=== PATIENT | female | born 1955 | race Caucasian/White ===

== ENCOUNTER → 2019-12-26 11:40 | Outpatient (BNVA) | payer MEDICARE, SELFPAY | PROVIDERS: PCP Physician Assistant; Visit Provider Surgery | DX: Z09 Encounter for follow-up examination after completed treatment for conditions other than malignant neoplasm (principal); Z87.19 Personal history of other diseases of the digestive system | CPT/HCPCS: 99212 ==

== ENCOUNTER → 2020-01-22 11:16 | Outpatient (BNV) | payer MEDICARE, OTHER, SELFPAY | PROVIDERS: PCP Physician Assistant; Visit Provider Internal Medicine | DX: C50.919 Malignant neoplasm of unspecified site of unspecified female breast (principal) | CPT/HCPCS: 99212; 99213; 99214; G2211 ==

== ENCOUNTER → 2020-01-23 09:17 | Outpatient (BNVA) | payer MEDICARE, SELFPAY | PROVIDERS: PCP Physician Assistant; Referring Provider Physician Assistant; Visit Provider Surgery | DX: C50.919 Malignant neoplasm of unspecified site of unspecified female breast (principal); K62.3 Rectal prolapse; Z90.49 Acquired absence of other specified parts of digestive tract; Z98.890 Other specified postprocedural states | CPT/HCPCS: 99212 ==

== ENCOUNTER 2020-02-20 15:05 | Emergency (ER) | payer MEDICARE, SELFPAY ==
[2020-02-20 15:17] VITALS: BP 142/91; PULSE 84; RESP 18; TEMP 36.3; O2SAT 98; BMI 27.3
--- NOTE | 2020-02-20 16:48 | PC.NURSE ---
ambulatory with pts baseline gait pattern, hob elevated, bleeding controlled, awaiting exam by provider, a&ox3
--- NOTE | 2020-02-20 16:56 | CT_ITS ---
EXAMINATION: CT HEAD WITHOUT CONTRAST CLINICAL INFORMATION: Head trauma. Laceration above right eye. COMPARISON: CT brain 07/11/2019 TECHNIQUE: Contiguous axial imaging was performed from the skull base to vertex without intravenous administration of contrast. This CT examination was performed using dose optimization techniques as appropriate, variously including the following: *Automated exposure control *Adjustment of mA and/or kV according to patient size (this includes techniques or standardized protocols for targeted exams where dose is matched to indication/reason for exam; i.e. extremities or head) *Use of iterative reconstruction technique DLP: 644 mGy-cm FINDINGS: There is no evidence of acute intracranial hemorrhage or territorial infarction. No abnormal mass effect or midline shift is seen. Robles to white matter differentiation is well preserved. No extra-axial fluid collections are identified. The lateral ventricles are enlarged and so are the cortical sulci. The robles to white matter differentiation is maintained. The osseous structures and soft tissues are normal. The mastoid air cells and visualized portions of the paranasal sinuses are well aerated. There is debris seen in bilateral external auditory canal CT/CT head/brain wo con IMPRESSION: No acute intracranial process seen. Mild cerebral volume loss. No major change compared to previous study 07/11/2019
--- NOTE | 2020-02-20 17:14 | ED.FALL ---
HPI - Fall General Chief Complaint: Fall Stated Complaint: fall, head inj Time Seen by Provider: 02/20/20 16:51 Source: patient Mode of arrival: ambulatory History of Present Illness HPI Narrative: 64-year-old female with a past medical history of asthma, cerebral palsy, major depressive disorder, presenting to the ED complaining of laceration to right lateral eye s/p mechanical fall [employer]. Patient states she tripped and fell while walking in [facility], denies preceding symptoms including CP/lightheadedness/dizziness. Reports multiple falls due to her CP. Denies LOC or use of anticoagulation. Denies headache, vision changes, nausea/vomiting, CP/SOB, abdominal pain, numbness, weakness, injury to other area. Tetanus up-to-date Related Data Home Medications Medication Instructions Recorded Confirmed albuterol sulfate 2.5 mg INHALATION Q4H PRN 11/14/19 01/22/20 fluticasone 250 mcg-salmeterol 50 1 inh INHALATION BID 11/14/19 01/22/20 mcg/dose blistr powdr for inhalation fluticasone propionate 250 1 inh INHALATION BID 11/14/19 01/22/20 mcg/actuation blister powder for inhalation lisinopril 10 mg tablet 10 mg PO DAILY 11/14/19 01/22/20 montelukast 10 mg tablet 10 mg PO DAILY 11/14/19 01/22/20 paroxetine HCl 12.5 mg 12.5 mg PO DAILY 11/14/19 01/22/20 tablet,extended release 24 hr phenazopyridine 200 mg tablet 200 mg PO TID 11/14/19 01/22/20 Previous Rx's Medication Instructions Recorded Paxil CR 25 mg tablet,extended 50 mg PO DAILY #180 cap NS 12/18/19 release gabapentin 300 mg capsule 900 mg PO TID #270 cap 01/17/20 nitrofurantoin macrocrystal 100 mg 100 mg PO BID 7 Days #14 cap 01/23/20 capsule ibuprofen 800 mg tablet 800 mg PO TID 30 Days #90 tab 02/19/20 Allergies Allergy/AdvReac Type Severity Reaction Status Date / Time No Known Allergies Allergy Verified 01/23/20 09:38 [No Known Allergies*] Review of Systems Review of Systems: Constitutional: No Weight loss, No Fever, No Chills ENT/Mouth: No vision changes/blurry vision Cardiovascular: No Chest Pain, No SOB Respiratory: No Cough, No Sputum, No Wheezing Gastrointestinal: No Nausea, No Vomiting, No Diarrhea, No Constipation, No Abdominal pain Genitourinary: No Dysuria, No Urinary Frequency Musculoskeletal: No joint pain, No Myalgias, No Joint Swelling, no back pain, no neck pain Skin: + laceration, No rash Neuro: No Weakness, No Numbness, No Paresthesias, no headache Yes all other systems are reviewed and are negative FORMERLY [facility], [facility] Past Medical History Attestation statement: The following information was validated with the patient. Medical History (Updated 02/20/20 @ 17:20 by VIK Clemens) Asthma Cerebral palsy Invasive lobular carcinoma of breast in female MDD (major depressive disorder) Prolapse of intestine Surgical History History of open sigmoidectomy Family History Family History Father Family history unknown Mother Breast cancer Social History Social History Alcohol intake: former Smoking Status: Never smoker Smoked in Last 30 Days: No Advance Directives: No Advance Directives Information Provided: No Physical Exam Vital Signs: Vital Signs: Last Vital Signs Temp 97.3 F 02/20/20 15:17 Pulse 84 02/20/20 15:17 Resp 18 02/20/20 15:17 BP 142/91 H 02/20/20 15:17 Pulse Ox 98 02/20/20 15:17 Body Mass Index 27.3 Const: General: cooperative, healthy appearing, comfortable and no acute distress Orientation/consciousness: patient oriented x3 Limitations: no limitations HENMT: Other: + 3 cm irregular laceration noted lateral to right eye Head: Yes No palpable skull fracture present Ears: hearing grossly normal bilaterally General nose exam: Normal external nose present Face and sinus: Yes normal facial exam Throat: Yes posterior oropharynx normal Eyes: General: appearance normal, both eyes and all related structures Pupils: Equal, round and reactive pupils present EOM: EOMs intact bilaterally Neck: Other: No midline cervical spinous tenderness Neck: Yes normal visual inspection and Yes no meningeal signs Resp: Effort & Inspection: normal respiratory effort Cardio: Rate: regular rate GI: Inspection: Yes normal to inspection Palpation (GI): Soft to palpation, nontender, no guarding and not rigid Back/Spine/Pelvis: Other: No midline thoracic/lumbar spinous tenderness Skin: Rashes: no rashes Neuro: General: patient oriented x3, tone normal, moves all extremities, no meningeal signs, no focal motor deficits and CN's II-XI intact bilaterally Cranial nerves: Yes Equal, round and reactive pupils present Cognition (Neuro): normal cognition Gait exam (Neuro): Normal gait present Motor exam (neuro): 5/5 motor strength present throughout and Pronator motor function not present Extrem: General: Yes normal to inspection Course Course Course Narrative: Wound repaired with 4 sutures in the ED -1800--ED care transferred to VIK Kincaid pending head CT Procedures Laceration Laceration 1: Site: face Side (If applicable): right Size (cm): 3 Description: irregular Depth: simple, single layer Local Anesthetic: lidocaine 1% Amount of anesthesia used (mL): 2.5 Pre-repair: irrigated extensively Skin layer closed with: nylon Size (cm): 6-0 Number of sutures: 4 Technique: simple, interrupted MDM - Fall MDM Narrative Medical decision making narrative: On exam VSS, NAD, laceration noted to lateral of right eye. No midline spinous tenderness throughout. No focal neuro deficits Plan: Head CT, suture laceration Discharge Plan Discharge Clinical Impression: Laceration, Fall Patient Disposition: Home, Self-Care Instructions: Laceration (ED) Additional Instructions: YOUR WOUND WAS REPAIRED TODAY IN THE EMERGENCY DEPARTMENT, AVOID GETTING WET FOR THE NEXT 24 HOURS, AFTER THAT YOU MAY GET WET BUT ONLY PAT DRY YOU NEED TO RETURN TO THE EMERGENCY DEPARTMENT OR IN URGENT CARE IN 5 DAYS TO HAVE THE STITCHES TAKEN OUT APPLY BACITRACIN OR NEOSPORIN AT HOME IF AREA BEGINS TO LOOK INFECTED, IS RED, THERE IS DRAINAGE, OR YOU HAVE FEVER RETURN TO THE EMERGENCY DEPARTMENT Prescriptions: No Action paroxetine HCl [Paxil CR] 25 mg tablet extended release 24 hr 50 mg PO DAILY Qty: 180 RF: 2 gabapentin 300 mg capsule 900 mg PO TID Qty: 270 RF: 3 nitrofurantoin macrocrystal 100 mg capsule 100 mg PO BID 7 Days Qty: 14 RF: 0 ibuprofen 800 mg tablet 800 mg PO TID 30 Days Qty: 90 RF: 3 montelukast 10 mg tablet 10 mg PO DAILY RF: 0 fluticasone propion-salmeterol [Advair Diskus] 250-50 mcg/dose blister with device 1 inh inhalation BID RF: 0 fluticasone propionate 250 mcg/actuation blister with device 1 inh inhalation BID RF: 0 phenazopyridine [Pyridium] 200 mg tablet 200 mg PO TID RF: 0 paroxetine HCl [Paxil CR] 12.5 mg tablet extended release 24 hr 12.5 mg PO DAILY RF: 0 lisinopril 10 mg tablet 10 mg PO DAILY RF: 0 albuterol sulfate 2.5 mg /3 mL (0.083 %) solution for nebulization 2.5 mg inhalation Q4H PRN (Reason: Shortness Of Breath) RF: 0 Referrals: Polo Nascimento PA-C [Primary Care Provider] - 5 days
[2020-02-20] MEDS: Lidocaine HCl 1 % MPF 5 ML VIAL SUBCUT (17:31)
--- NOTE | 2020-02-20 18:33 | PC.NURSE ---
spoke with cableman and ahe will pick pt up after ct scan if all is normal.
== END 2020-02-20 19:30 | disposition home or self-care (01) ==
PROVIDERS: Emergency Provider Internal Medicine; PCP Physician Assistant
DX: S01.111A Laceration without foreign body of right eyelid and periocular area, initial encounter (principal); H57.11 Ocular pain, right eye; G44.309 Post-traumatic headache, unspecified, not intractable; W01.0XXA Fall on same level from slipping, tripping and stumbling without subsequent striking against object, initial encounter; Y93.9 Activity, unspecified; Y92.9 Unspecified place or not applicable; Y99.9 Unspecified external cause status; Z79.899 Other long term (current) drug therapy
CPT/HCPCS: 12013; 70450; 99284

== ENCOUNTER 2020-02-26 06:34 | Emergency (ER) | payer MEDICARE, SELFPAY ==
--- NOTE | 2020-02-26 07:57 | ED.RECABL ---
HPI - Recheck/Abnormal Lab/Rx General Chief Complaint: Wound/Laceration Stated Complaint: Suture removal Time Seen by Provider: 02/26/20 07:09 Source: patient Mode of arrival: ambulatory Limitations: no limitations History of Present Illness MD complaint: suture/staple removal Initial visit (ago): day(s) (6) Initial visit for: laceration Returns today for: staple/stitch removal Symptoms since prior visit: no new symptoms Context: planned re-check Associated symptoms: none Related Data Home Medications Medication Instructions Recorded Confirmed albuterol sulfate 2.5 mg INHALATION Q4H PRN 11/14/19 02/21/20 fluticasone 250 mcg-salmeterol 50 1 inh INHALATION BID 11/14/19 02/21/20 mcg/dose blistr powdr for inhalation fluticasone propionate 250 1 inh INHALATION BID 11/14/19 02/21/20 mcg/actuation blister powder for inhalation lisinopril 10 mg tablet 10 mg PO DAILY 11/14/19 02/21/20 montelukast 10 mg tablet 10 mg PO DAILY 11/14/19 02/21/20 paroxetine HCl 12.5 mg 12.5 mg PO DAILY 11/14/19 02/21/20 tablet,extended release 24 hr Previous Rx's Medication Instructions Recorded Paxil CR 25 mg tablet,extended 50 mg PO DAILY #180 cap NS 12/18/19 release gabapentin 300 mg capsule 900 mg PO TID #270 cap 01/17/20 ibuprofen 800 mg tablet 800 mg PO TID 30 Days #90 tab 02/19/20 Allergies Allergy/AdvReac Type Severity Reaction Status Date / Time No Known Allergies Allergy Verified 02/21/20 10:40 [No Known Allergies*] Review of Systems Review of Systems: Constitutional : No Fever, No Chills, Cardiovascular : No Chest Pain, No SOB Respiratory : No Dyspnea Gastrointestinal : No abdominal pain Musculoskeletal : No Joint Swelling Skin : No rash, positive skin laceration Neuro : No Weakness, No Numbness Psych : No SI/HI PMFSH Past Medical History Attestation statement: The following information was validated with the patient. Medical History Asthma Cerebral palsy Invasive lobular carcinoma of breast in female MDD (major depressive disorder) Prolapse of intestine Surgical History History of lumpectomy of right breast History of open sigmoidectomy Family History Family History Father Family history unknown Mother Breast cancer Brother No problems noted. Sister History of leukemia Social History Social History Household Members: None Alcohol intake: former Smoking Status: Never smoker Advance Directives: No Advance Directives Information Provided: No Current occupational status: retired Physical Exam Vital Signs: Vital Signs: Last Vital Signs Temp 98 F 02/26/20 08:00 Pulse 87 02/26/20 08:00 Resp 18 02/26/20 08:00 BP 167/99 H 02/26/20 08:00 Pulse Ox 97 02/26/20 08:00 Body Mass Index 27.8 Appearance: Alert. Oriented X3. No acute distress. Eyes: Pupils equal, round and reactive to light. ENT: Pharynx normal. R eyebrow 4 sutures noted, no exudates/erythema/mild swelling some partial areas of dehiscence but scabbed area is formed no dehiscence with suture removal Neck: Normal inspection. Neck supple. CVS: Normal heart rate and rhythm. Pulses normal. Respiratory: No respiratory distress. Breath sounds normal. Abdomen: Soft and nontender. Skin: Skin warm and dry. Normal skin color. Normal skin turgor. Extremities: No lower extremity edema. No calf ttp Neuro: Oriented X 3. No motor deficit. No sensory deficit. Procedures Procedure Narrative Procedure Narrative: removed 4 sutures no issues R eyebrow - no signs of infection, tolerated well prepped with alcohol - covered area with steri strips MDM - Recheck/Abnormal Lab/Rx MDM Narrative Medical decision making narrative: 64 yo female s/p R eyebrow sutures - will remove, area of small partial dehiscence that was not under sutured area - will place steri strips, no signs of infection, stable for DC Discharge Plan Discharge Clinical Impression: Encounter for removal of sutures Patient Disposition: Home, Self-Care Instructions: Stitches Removal (ED) Additional Instructions: return to ED for any worsening symptoms or concerns THE STERI STRIPS WILL FALL OFF IN 5 TO 7 DAYS IT IS OKAY TO SHOWER WITH THEM Prescriptions: No Action paroxetine HCl [Paxil CR] 25 mg tablet extended release 24 hr 50 mg PO DAILY Qty: 180 RF: 2 gabapentin 300 mg capsule 900 mg PO TID Qty: 270 RF: 3 ibuprofen 800 mg tablet 800 mg PO TID 30 Days Qty: 90 RF: 3 montelukast 10 mg tablet 10 mg PO DAILY RF: 0 fluticasone propion-salmeterol [Advair Diskus] 250-50 mcg/dose blister with device 1 inh inhalation BID RF: 0 fluticasone propionate 250 mcg/actuation blister with device 1 inh inhalation BID RF: 0 paroxetine HCl [Paxil CR] 12.5 mg tablet extended release 24 hr 12.5 mg PO DAILY RF: 0 lisinopril 10 mg tablet 10 mg PO DAILY RF: 0 albuterol sulfate 2.5 mg /3 mL (0.083 %) solution for nebulization 2.5 mg inhalation Q4H PRN (Reason: Shortness Of Breath) RF: 0
[2020-02-26 08:00] VITALS: BP 167/99; PULSE 87; RESP 18; TEMP 36.6; O2SAT 97; BMI 27.8
== END 2020-02-26 08:19 | disposition home or self-care (01) ==
PROVIDERS: Emergency Provider Emergency Medicine
DX: Z48.02 Encounter for removal of sutures (principal)
CPT/HCPCS: 99282

== ENCOUNTER 2020-02-29 13:08 | Outpatient (REF) | payer MEDICARE, SELFPAY ==
--- NOTE | 2020-02-29 13:13 | MM_ITS ---
EXAMINATION: MM DIAGNOSTIC DIGITAL BREAST TOMOSYNTHESIS, BILATERAL CLINICAL INFORMATION: Status post right breast lumpectomy. COMPARISON: Mammography: 03/16/2019 and studies dating back to 11/13/2011. TECHNIQUE: Digital breast tomosynthesis is performed in both the craniocaudal and mediolateral oblique views along with computer-aided detection (CAD). Synthesized 2D images are generated from the tomosynthesis. Right exaggerated craniocaudal view as well as spot magnification films in craniocaudal and 90-degree mediolateral views of the right breast. FINDINGS: The breasts are heterogeneously dense, which may obscure small masses (ACR BI-RADS breast composition Category c). Postsurgical and postradiation change seen within the right breast. No new abnormal dominant mass or suspicious grouping of microcalcifications identified. There is a stable appearance of the left breast. Results are provided to the patient at time of visit by the technologist. MM/MM tomosynthesis diagnostic BI IMPRESSION: There are no significant changes from prior study. ASSESSMENT: BI-RADS 2: Benign. RECOMMENDATION: Diagnostic mammography at time of next annual exam, due in 12 months. This patient's information was entered into a reminder system with a target due date for their next mammogram.
== END 2020-02-29 13:09 | disposition home or self-care (01) ==
LOC: HO.MAMMO 13:08
PROVIDERS: Visit Provider Internal Medicine
DX: Z85.3 Personal history of malignant neoplasm of breast (principal); Z98.890 Other specified postprocedural states; Z92.3 Personal history of irradiation
CPT/HCPCS: 77062; 77066

== ENCOUNTER → 2020-07-23 10:29 | Outpatient (BNVA) | payer MEDICARE, SELFPAY | PROVIDERS: PCP Physician Assistant; Referring Provider Physician Assistant; Visit Provider Surgery | DX: C50.919 Malignant neoplasm of unspecified site of unspecified female breast (principal) | CPT/HCPCS: 99212 ==

== ENCOUNTER 2020-09-13 09:24 | Outpatient (REF) | payer MEDICARE, SELFPAY ==
[2020-09-13 10:21] LABS: Hematocrit 37.3 % (37-47); Hemoglobin 11.4 g/dl (12.0-16.0); Mean Corpuscular HGB Conc 30.6 g/dl (31.0-35.0); Mean Corpuscular Hemoglobin 24.8 pg (27.0-33.0); Mean Corpuscular Volume 81.1 fL (80-98); Mean Platelet Volume 9.2 fL (9.4-12.3); Platelet Count 238 X10*3/uL (160-400); Red Cell Distribution Width 21.5 % (11.0-16.0); White Blood Count 4.4 X10*3/uL (4.8-10.8)
[2020-09-13 10:56] LABS: Alanine Aminotransferase 20 U/L (0-31); Alkaline Phosphatase 81 U/L (39-117); Anion Gap 13 (12-20); Aspartate Amino Transferase 22 U/L (5-31); Bilirubin Total 0.4 mg/dL (0.0-1.0); Blood Urea Nitrogen 15 mg/dL (9-16); Calcium 9.3 mg/dL (8.4-10.2); Carbon Dioxide 26 mmol/L (22-29); Chloride 107 mmol/L (96-108); Cholesterol 188 mg/dL; Estimated Glomerular Filt Rate > 60; Glucose Fasting 90 mg/dL (60-99); HDL Cholesterol 83 mg/dL; LDL Cholesterol Calculated 91 mg/dl; Potassium 4.6 mmol/L (3.3-5.1); Sodium 141 mmol/L (135-145); Total Protein 6.8 g/dL (6.5-8.0); Triglycerides 71 mg/dL
[2020-09-13 11:13] LABS: TSH reflex Free T4 1.03 uIU/mL (0.32-4.0)
== END 2020-09-13 09:25 | disposition home or self-care (01) ==
LOC: HO.LAB 09:24
PROVIDERS: PCP Physician Assistant; Visit Provider Physician Assistant
DX: I10 Essential (primary) hypertension (principal); D64.9 Anemia, unspecified
CPT/HCPCS: 36415; 80053; 80061; 84443; 85027

== ENCOUNTER → 2020-10-15 14:47 | Outpatient (BNVA) | payer MEDICARE, SELFPAY | PROVIDERS: PCP Physician Assistant; Referring Provider Physician Assistant; Visit Provider Surgery | DX: R10.13 Epigastric pain (principal); K62.3 Rectal prolapse | CPT/HCPCS: 99212 ==

== ENCOUNTER → 2020-10-24 10:26 | Outpatient (BNVA) | payer MEDICARE, SELFPAY | PROVIDERS: PCP Physician Assistant; Referring Provider Physician Assistant; Visit Provider Surgery | DX: C50.919 Malignant neoplasm of unspecified site of unspecified female breast (principal) | CPT/HCPCS: 99212 ==

== ENCOUNTER 2020-12-06 12:01 | Outpatient (REF) | payer MEDICARE, SELFPAY ==
[2020-12-06 13:10] LABS: Blood Urea Nitrogen 16 mg/dL (9-16); Estimated Glomerular Filt Rate > 60
== END 2020-12-06 12:02 | disposition home or self-care (01) ==
LOC: HO.LAB 12:01
PROVIDERS: PCP Physician Assistant; Visit Provider Surgery
DX: R10.13 Epigastric pain (principal)
CPT/HCPCS: 36415; 82565; 84520

== ENCOUNTER 2020-12-10 09:06 | Outpatient (REF) | payer MEDICARE, SELFPAY ==
--- NOTE | ~2020-12-10 | CT_ITS ---
EXAMINATION: CT ABDOMEN AND PELVIS WITH CONTRAST CLINICAL INFORMATION: Epigastric pain COMPARISON: Previous CT of the abdomen and pelvis most recent October 28 TECHNIQUE: Multidetector volumetric images were obtained from the superior aspect of the liver through the pubic symphysis following administration 85 mL of Omnipaque 350 intravenous contrast. Sagittal and coronal reformatted images were obtained on the technologist's workstation. Oral contrast: Yes This CT examination was performed using dose optimization techniques as appropriate, variously including the following: *Automated exposure control *Adjustment of mA and/or kV according to patient size (this includes techniques or standardized protocols for targeted exams where dose is matched to indication/reason for exam; i.e. extremities or head) *Use of iterative reconstruction technique DLP: 4 6 by mGy-cm FINDINGS: LUNG BASES: There are increased interstitial markings seen in the right middle lobe, question related to previous chest wall radiation. The lung bases are otherwise clear. LIVER, GALLBLADDER, AND BILIARY TREE: There are multiple cysts seen in the liver. The largest measures 1 x 2 cm in the right lobe of the liver. Liver is otherwise unremarkable. The gallbladder is unremarkable. There is no biliary duct dilatation. PANCREAS: Unremarkable. SPLEEN: Unremarkable. ADRENAL GLANDS: Unremarkable. KIDNEYS AND URETERS: There are multiple right renal stones. Largest stone measures 3 mm. There is a small cyst in the lower pole right kidney and upper pole of the left kidney. There is a duplicated left renal collecting system. BLADDER: Not optimally distended. There is question of a tiny stone in the bladder axial image 84 series 3 and axial image 694 series 6. GASTROINTESTINAL TRACT: The colon is distended and filled with stool suggestive of constipation. The colon is dilated down to the rectum. There are 2 surgical clips seen in the distal sigmoid colon. There is question of a focal area of narrowing or mild stricture of the distal sigmoid colon for example coronal reconstructed image 50. The small and large bowel is otherwise unremarkable. The appendix is not identified. There is question of a small esophageal hernia thickening of the distal thoracic esophagus. ABDOMINAL WALL: There is a paraumbilical hernia containing fat. There is a low ventral hernia containing a knuckle of small bowel. There is no evidence of obstruction. LYMPH NODES: Normal. VASCULAR: Unremarkable. PELVIC VISCERA: Unremarkable. OSSEOUS STRUCTURES: There are bilateral rib fractures of varying ages. These are new in the colon from October 2019 exam. There is postsurgical change at L4-L5 with posterior fusion hardware and disc interspace. There is mild anterior subluxation of L4 with L5 that appears unchanged. There degenerative changes of the spine. There is cortical irregularity of the left iliac bone likely related to bone donor site. CT/CT abdomen pelvis w con IMPRESSION: Severe constipation. Question surgical clips distal sigmoid colon and focal area of narrowing questionable for mild distal sigmoid colon stricture. Small esophageal hernia. Question mild wall thickening of the distal thoracic esophagus. Periumbilical hernia containing fat. Tiny more inferior ventral hernia containing a knuckle of small bowel. No evidence of obstruction. Liver and bilateral renal cysts. Small right renal stones. Question small bladder stone.
== END 2020-12-10 09:07 | disposition home or self-care (01) ==
LOC: HO.CT 09:06
PROVIDERS: Visit Provider Surgery
DX: R10.13 Epigastric pain (principal)
CPT/HCPCS: 74177

== ENCOUNTER → 2020-12-20 10:35 | Outpatient (BNVA) | payer MEDICARE, SELFPAY | PROVIDERS: PCP Physician Assistant; Referring Provider Physician Assistant; Visit Provider Surgery | DX: K59.09 Other constipation (principal) | CPT/HCPCS: 99212 ==

== ENCOUNTER → 2021-01-23 10:25 | Outpatient (BNVA) | payer MEDICARE, SELFPAY | PROVIDERS: PCP Physician Assistant; Referring Provider Physician Assistant; Visit Provider Surgery | DX: C50.811 Malignant neoplasm of overlapping sites of right female breast (principal) | CPT/HCPCS: 99212 ==

== ENCOUNTER → 2021-01-24 11:47 | Outpatient (BNVA) | payer MEDICARE, SELFPAY | PROVIDERS: PCP Physician Assistant; Referring Provider Physician Assistant; Visit Provider Nurse Practitioner Family | DX: Z12.11 Encounter for screening for malignant neoplasm of colon (principal); K21.9 Gastro-esophageal reflux disease without esophagitis; K59.09 Other constipation; R19.5 Other fecal abnormalities | CPT/HCPCS: 99202 ==

== ENCOUNTER 2021-03-03 10:45 | Outpatient (REF) | payer MEDICARE, SELFPAY ==
--- NOTE | ~2021-03-03 | MM_ITS ---
EXAMINATION: MM DIAGNOSTIC DIGITAL BREAST TOMOSYNTHESIS, BILATERAL CLINICAL INFORMATION: Right lumpectomy for invasive lobular cancer 03/16/2019. Due for yearly. COMPARISON: Mammography: 02/29/2020, 03/16/2019, 02/22/2019, 02/09/2019, 03/05/2018, 05/25/2018, 05/18/2017. TECHNIQUE: Digital breast tomosynthesis is performed in both the craniocaudal and mediolateral oblique views along with computer-aided detection (CAD). Synthesized 2D images are generated from the tomosynthesis. Additional views are obtained: Exaggerated right CC, right MLO, magnification right CC x2, magnification exaggerated right CC, magnification right ML. Technologist notes technically challenging exam tailored to patient capabilities. FINDINGS: There are scattered areas of fibroglandular density (ACR BI-RADS breast composition Category b). There are post therapy changes on the right with mild reduced breast size and stable scarring and mild smooth skin thickening. Neither breast shows interval mass or architectural abnormality or developing density. The axilla are unremarkable. No significant changes. Results are provided to the patient at time of visit by the technologist. MM/MM tomosynthesis diagnostic BI IMPRESSION: No mammographic evidence of malignancy. Post therapy changes right breast. ASSESSMENT: BI-RADS 2: Benign RECOMMENDATION: Annual bilateral mammography. This patient's information was entered into a reminder system with a target due date for their next mammogram.
== END 2021-03-03 10:46 | disposition home or self-care (01) ==
LOC: HO.MAMMO 10:45
PROVIDERS: PCP Physician Assistant; Visit Provider Internal Medicine
DX: R92.1 Mammographic calcification found on diagnostic imaging of breast (principal)
CPT/HCPCS: 77062; 77066

== ENCOUNTER → 2021-04-22 09:33 | Outpatient (BNVA) | payer MEDICARE, SELFPAY | PROVIDERS: PCP Physician Assistant; Referring Provider Physician Assistant; Visit Provider Surgery | DX: C50.911 Malignant neoplasm of unspecified site of right female breast (principal) | CPT/HCPCS: 99212 ==

== ENCOUNTER 2021-05-12 14:58 | Outpatient (REF) | payer OTHER, SELFPAY ==
[2021-05-12 15:38] LABS: Hematocrit 35.3 % (37.0-47.0); Hemoglobin 10.6 g/dl (12.0-16.0); Mean Corpuscular Hemoglobin 25.1 pg (27.0-33.0); Mean Corpuscular Volume 83.5 fL (80.0-98.0); Mean Platelet Volume 9.9 fL (9.4-12.3); Platelet Count 262 X10*3/uL (160-400); Red Blood Count 4.23 X10*6/uL (4.20-5.50); Red Cell Distribution Width 15.9 % (11.0-16.0); White Blood Count 6.8 X10*3/uL (4.8-10.8)
[2021-05-12 15:54] LABS: Appearance Urine CLOUDY; Color Urine YELLOW; Glucose Urine UA NEG (NEG); Leukocyte Esterase Urine TRACE (NEG); Nitrite Urine NEG (NEG); Specific Gravity - Urine 1.025 (1.005-1.025); UACC Culture Trigger YES; Urine Blood 3+ (NEG); Urine Ketones NEG (NEG); Urine Protein TRACE MG/DL (NEG-TRACE)
[2021-05-12 16:02] LABS: Alanine Aminotransferase 20 U/L (0-31); Albumin Level 4.3 g/dL (3.5-5.0); Alkaline Phosphatase 82 U/L (39-117); Anion Gap 10 (12-20); Aspartate Amino Transferase 17 U/L (5-31); Bilirubin Total 0.3 mg/dL (0.0-1.0); Blood Urea Nitrogen 17 mg/dL (9-16); Calcium 9.7 mg/dL (8.4-10.2); Carbon Dioxide 28 mmol/L (22-29); Chloride 104 mmol/L (96-108); Cholesterol 170 mg/dL; Estimated Glomerular Filt Rate > 60; Glucose Fasting 123 mg/dL (60-99); HDL Cholesterol 80 mg/dL; Iron 44 mcg/dL (30-160); LDL Cholesterol Calculated 68 mg/dl; Percent Iron Saturation 9 % (15-50); Sodium 138 mmol/L (135-145); Total Iron Binding Capacity 483 mcg/dL (228-428); Total Protein 6.8 g/dL (6.5-8.0); Triglycerides 112 mg/dL; Unsaturated Iron Binding 439 ug/dL
[2021-05-12 16:24] LABS: TSH reflex Free T4 1.18 uIU/mL (0.32-4.0)
== END 2021-05-12 14:59 | disposition home or self-care (01) ==
LOC: HO.LAB 14:58
PROVIDERS: PCP Physician Assistant; Visit Provider Physician Assistant
DX: I10 Essential (primary) hypertension (principal); D50.9 Iron deficiency anemia, unspecified; D64.9 Anemia, unspecified; R30.0 Dysuria; Z13.1 Encounter for screening for diabetes mellitus; Z13.220 Encounter for screening for lipoid disorders; Z13.29 Encounter for screening for other suspected endocrine disorder
CPT/HCPCS: 36415; 80053; 80061; 81001; 81003; 83540; 84443; 85027; 87086

== ENCOUNTER 2021-06-16 14:51 | Emergency (ER) | payer OTHER, SELFPAY ==
--- NOTE | ~2021-06-16 | XR_ITS ---
EXAMINATION: XR ABDOMEN KUB CLINICAL INDICATION: Vomiting and ileus. COMPARISON: CT abdomen and pelvis 12/10/2020 TECHNIQUE: AP view of the abdomen. FINDINGS: There is large amount of stool and gas seen throughout the entire colon suggestive of severe constipation. No organomegaly. No radiopaque calculi. Mild dextroscoliosis mid lumbar spine with degenerative disc changes and spondylosis L2-L3 disc level. There is L4-L5 fusion with posterior hardware. XR/XR KUB IMPRESSION: Moderate to significant constipation. Similar findings were seen on the previous CT abdomen and pelvis exam 12/10/2020. Consider a laxative or simple enema.
[2021-06-16 15:44] VITALS: BP 177/135; PULSE 109; RESP 20; TEMP 36.5; O2SAT 95; BMI 25.9
[2021-06-16 17:06] LABS: MANUAL DIFF FLAG NO
[2021-06-16 17:10] LABS: Basophils Percent Auto 0.4 % (0-2); Eosinophils Percent Auto 0.2 % (0-4); Hematocrit 43.5 % (37.0-47.0); Hemoglobin 13.7 g/dl (12.0-16.0); Imm Gran Abs Auto 0.05 X10*3/uL (0.00-0.03); Imm Gran Pct Auto 0.5 % (0.0-0.4); Lymphocytes Absolute Auto 1.1 X10*3/uL (1.2-4.9); Lymphocytes Percent Auto 11.2 % (20-40); Mean Corpuscular HGB Conc 31.5 g/dl (31.0-35.0); Mean Corpuscular Hemoglobin 26.6 pg (27.0-33.0); Mean Corpuscular Volume 84.3 fL (80.0-98.0); Mean Platelet Volume 9.5 fL (9.4-12.3); Monocytes Absolute Auto 0.6 X10*3/uL (0.1-1.2); Monocytes Percent Auto 6.3 % (2-11); Neutrophils Absolute Auto 7.8 x10*3/uL (2.0-8.3); Neutrophils Percent Auto 81.4 % (45-73); Platelet Count 282 X10*3/uL (160-400); Red Blood Count 5.16 X10*6/uL (4.20-5.50); Red Cell Distribution Width 17.2 % (11.0-16.0); White Blood Count 9.6 X10*3/uL (4.8-10.8)
[2021-06-16 17:26] LABS: Anion Gap 16 (12-20); Blood Urea Nitrogen 16 mg/dL (9-16); Calcium 9.5 mg/dL (8.4-10.2); Carbon Dioxide 20 mmol/L (22-29); Chloride 110 mmol/L (96-108); Creatinine Clr Calc Pharmacy 68.3; Estimated Glomerular Filt Rate > 60; Glucose Random 157 mg/dL (60-115); Potassium 3.5 mmol/L (3.3-5.1); Sodium 142 mmol/L (135-145)
--- NOTE | 2021-06-16 18:42 | ED.ABDPAIN ---
HPI - Abdominal Pain General Chief Complaint: Abdominal Pain Stated Complaint: Hernia Time Seen by Provider: 06/16/21 18:35 Source: patient Mode of arrival: ambulatory Limitations: no limitations History of Present Illness HPI narrative: Patient with history of ventral hernia been nauseated for last 2 days vomiting 4- 5 times with diffuse abdominal cramping had normal bowel movement today. No fever no chills no cough or shortness of breathNo history of recent travel or uncooked food Related Data Home Medications Medication Instructions Recorded Confirmed albuterol sulfate 2.5 mg INHALATION Q4H PRN 11/14/19 05/14/21 fluticasone 250 mcg-salmeterol 50 1 inh INHALATION BID 11/14/19 05/14/21 mcg/dose blistr powdr for inhalation (Advair Diskus) anastrozole 1 mg tablet (Arimidex) 1 tab PO DAILY 10/22/20 05/14/21 nitrofurantoin macrocrystal 100 mg 100 mg PO BID 05/14/21 05/14/21 capsule (Macrodantin) Previous Rx's Medication Instructions Recorded Paxil CR 12.5 mg tablet,extended 12.5 mg PO DAILY #90 cap NS 09/11/20 release (paroxetine HCl) Paxil CR 25 mg tablet,extended 50 mg PO DAILY #180 tab NS 09/11/20 release (paroxetine HCl) montelukast 10 mg tablet 10 mg PO QPM #90 tab 09/24/20 barium sulfate 2 % (w/v) oral 900 ml PO ONCE #900 ml 12/04/20 suspension (Readi-Cat 2) lactulose 20 gram/30 mL oral 20 g (30 mL) PO BID PRN 15 Days 12/18/20 solution #1200 ml sennosides 8.6 mg tablet (Natural 8.6 mg PO BEDTIME #30 tab 01/24/21 Senna Laxative) gabapentin 300 mg capsule 900 mg PO TID #270 cap 03/10/21 lisinopril 10 mg tablet 10 mg PO DAILY #90 cap 04/10/21 ferrous sulfate 325 mg (65 mg 325 mg PO BID #60 tab 05/14/21 iron) tablet (iron) omeprazole 20 mg capsule,delayed 20 mg PO DAILY 30 Days #30 cap 05/27/21 release ibuprofen 800 mg tablet 800 mg PO TID #90 tab 05/04/22 ondansetron 4 mg disintegrating 4 mg PO Q6-8H PRN #7 tab 06/16/21 tablet polyethylene glycol 3350 17 17 g PO DAILY #510 g 06/16/21 gram/dose oral powder (Miralax) Allergies Allergy/AdvReac Type Severity Reaction Status Date / Time No Known Allergies Allergy Verified 06/03/21 09:00 [No Known Allergies*] Review of Systems Review of Systems Yes all other systems are reviewed and are negative [facility] Past Medical History Medical History Asthma Cerebral palsy Invasive lobular carcinoma of breast in female MDD (major depressive disorder) Prolapse of intestine Surgical History History of lumpectomy of right breast History of open sigmoidectomy Family History Family History Father Family history unknown Mother Breast cancer Brother No problems noted. Sister History of leukemia Social History Social History Household Members: None Housing: Apartment Are you a primary acute care physical therapist to a significant other at home: No Do you presently have visiting nurse or other home services: No Alcohol intake: former Patient Tobacco Use Status: Never used Tobacco e-Cigarette/Vaping Use: Never Used Advance Directives: Yes Advance Directives on File: Yes Advance Directives Date on File: 10/01/20 service: No Current occupational status: retired Physical Exam ED Vital Signs: Vital Signs - 24 hr 06/16/21 15:44 06/16/21 19:57 06/16/21 20:24 Temperature 97.7 F 98.4 F Pulse Rate 109 H 100 100 Respiratory Rate 20 18 18 Blood Pressure 177/135 H 182/119 H 187/110 H Pulse Oximetry 95 93 93 06/16/21 20:56 Temperature Pulse Rate 88 Respiratory Rate 18 Blood Pressure 168/106 H Pulse Oximetry 96 BMI result Body Mass Index 25.9 Appearance: Alert. Oriented X3. No acute distress. Eyes: No pallor or icterus ENT: Pharynx normal. Oral Mucosa moist Neck: Normal inspection. Neck supple. CVS: Normal heart rate and rhythm. Pulses normal. Respiratory: No respiratory distress. Equal air entry bilateral, Abdomen: Soft , diffuse tenderness Bowel sounds are present, no mass palpable, no CVA tenderness Skin: Skin warm and dry. Normal skin color. Normal skin turgor. Extremities: No lower extremity edema. No calf tenderness Neuro: Oriented X 3. MDM - Abdominal Pain MDM Narrative Medical decision making narrative: Patient's history of chronic constipation and small ventral hernia comes here for diffuse abdominal pain with nausea and vomiting had small amount of bowel movement earlier today KUB showed moderate amount of stool no SBO labs are stable will give her milk of magnesium and Dulcolax also had patient blood pressure elevated as she missed her medications will give her labetalol Patient taking p.o. fluids feeling much better repeat blood pressure 168/106 Medical Records Attestation: I reviewed the patient's medical records. Lab Data Attestation: I reviewed the patient's lab results. Result diagrams: 06/16/21 17:01 06/16/21 17:01 Labs: Lab Results 06/16/21 06/16/21 06/16/21 Range/Units 17:01 17:01 19:35 WBC 9.6 (4.8-10.8) X10*3/uL RBC 5.16 D (4.20-5.50) X10*6/uL Hgb 13.7 D (12.0-16.0) g/dl Hct 43.5 D (37.0-47.0) % MCV 84.3 (80.0-98.0) fL MCH 26.6 L (27.0-33.0) pg MCHC 31.5 (31.0-35.0) g/dl RDW 17.2 H (11.0-16.0) % Plt Count 282 (160-400) X10*3/uL MPV 9.5 (9.4-12.3) fL Immature Gran % (Auto) 0.5 H (0.0-0.4) % Neut % (Auto) 81.4 H (45-73) % Lymph % (Auto) 11.2 L (20-40) % Crisp % (Auto) 6.3 (2-11) % Eos % (Auto) 0.2 (0-4) % Baso % (Auto) 0.4 (0-2) % Lymph # (Auto) 1.1 L (1.2-4.9) X10*3/uL [place] # (Auto) 0.6 (0.1-1.2) X10*3/uL Eos # (Auto) 0.0 (0.0-0.4) X10*3/uL Baso # (Auto) 0.0 (0.0-0.2) X10*3/uL Abs Immat Gran (auto) 0.05 H (0.00-0.03) X10*3/uL Absolute Neuts (auto) 7.8 (2.0-8.3) x10*3/uL Absolute Nucleated RBC 0.000 (0.0-0.012) X10*3/uL Nucleated RBC % (auto) 0.0 (0.0-0.2) /100WBC Sodium 142 (135-145) mmol/L Potassium 3.5 (3.3-5.1) mmol/L Chloride 110 H (96-108) mmol/L Carbon Dioxide 20 L (22-29) mmol/L Anion Gap 16 (12-20) BUN 16 (9-16) mg/dL Creatinine 0.76 (0.5-1.4) mg/dL Estim Creat Clear Calc 68.3 Estimated GFR > 60 Random Glucose 157 H (60-115) mg/dL Calcium 9.5 (8.4-10.2) mg/dL Total Bilirubin 0.6 (0.0-1.0) mg/dL Direct Bilirubin 0.3 (0.0-0.5) mg/dL AST 17 (5-31) U/L ALT 20 (0-31) U/L Alkaline Phosphatase 84 (39-117) U/L Total Protein 7.2 (6.5-8.0) g/dL Albumin 4.4 (3.5-5.0) g/dL Lipase 25 (8-78) U/L Urine Color Urine Appearance Urine pH (5.0-8.0) Ur Specific [place] (1.005-1.025) Urine Protein (NEG-TRACE) MG/DL Urine Glucose (UA) (NEG) MG/DL Urine Ketones (NEG) MG/DL Urine Blood (NEG) Urine Nitrite (NEG) Ur Leukocyte Esterase (NEG) Urine RBC (0) /HPF Urine WBC (0-4) /HPF Ur Squamous Epith Cells /LPF Calcium Carbonate Cryst /LPF Urine Bacteria /LPF COVID-19 (CHARLEY) Negative (Negative) COVID-19 Clin Com See Note 06/16/21 Range/Units 20:46 WBC (4.8-10.8) X10*3/uL RBC (4.20-5.50) X10*6/uL Hgb (12.0-16.0) g/dl Hct (37.0-47.0) % MCV (80.0-98.0) fL MCH (27.0-33.0) pg MCHC (31.0-35.0) g/dl RDW (11.0-16.0) % Plt Count (160-400) X10*3/uL MPV (9.4-12.3) fL Immature Gran % (Auto) (0.0-0.4) % Neut % (Auto) (45-73) % Lymph % (Auto) (20-40) % Crisp % (Auto) (2-11) % Eos % (Auto) (0-4) % Baso % (Auto) (0-2) % Lymph # (Auto) (1.2-4.9) X10*3/uL Crisp # (Auto) (0.1-1.2) X10*3/uL Eos # (Auto) (0.0-0.4) X10*3/uL Baso # (Auto) (0.0-0.2) X10*3/uL Abs Immat Gran (auto) (0.00-0.03) X10*3/uL Absolute Neuts (auto) (2.0-8.3) x10*3/uL Absolute Nucleated RBC (0.0-0.012) X10*3/uL Nucleated RBC % (auto) (0.0-0.2) /100WBC Sodium (135-145) mmol/L Potassium (3.3-5.1) mmol/L Chloride (96-108) mmol/L Carbon Dioxide (22-29) mmol/L Anion Gap (12-20) BUN (9-16) mg/dL Creatinine (0.5-1.4) mg/dL Estim Creat Clear Calc Estimated GFR Random Glucose (60-115) mg/dL Calcium (8.4-10.2) mg/dL Total Bilirubin (0.0-1.0) mg/dL Direct Bilirubin (0.0-0.5) mg/dL AST (5-31) U/L ALT (0-31) U/L Alkaline Phosphatase (39-117) U/L Total Protein (6.5-8.0) g/dL Albumin (3.5-5.0) g/dL Lipase (8-78) U/L Urine Color YELLOW Urine Appearance HAZY Urine pH 5.5 (5.0-8.0) Ur Specific [place] 1.025 (1.005-1.025) Urine Protein TRACE (NEG-TRACE) MG/DL Urine Glucose (UA) NEG (NEG) MG/DL Urine Ketones 40 (NEG) MG/DL Urine Blood TRACE (NEG) Urine Nitrite NEG (NEG) Ur Leukocyte Esterase NEG (NEG) Urine RBC 1-4 (0) /HPF Urine WBC 0 (0-4) /HPF Ur Squamous Epith Cells 1+ /LPF Calcium Carbonate Cryst 3+ /LPF Urine Bacteria NONE /LPF COVID-19 (CHARLEY) (Negative) COVID-19 Clin Com Discharge Plan Discharge Clinical Impression: Vomiting, Constipation Patient Disposition: Home, Self-Care Instructions: Constipation (ED), Acute Nausea and Vomiting (ED) Additional Instructions: Take stool softener as advised Take medicine for nausea as prescribed Prescriptions: New polyethylene glycol 3350 [Miralax] 17 gram/dose powder 17 g PO DAILY Qty: 510 0RF ondansetron 4 mg tablet,disintegrating 4 mg PO Q6-8H PRN (Reason: nausea and vomiting) Qty: 7 0RF No Action paroxetine HCl [Paxil CR] 12.5 mg tablet extended release 24 hr 12.5 mg PO DAILY Qty: 90 3RF paroxetine HCl [Paxil CR] 25 mg tablet extended release 24 hr 50 mg PO DAILY Qty: 180 2RF montelukast 10 mg tablet 10 mg PO QPM Qty: 90 3RF Readi-Cat 2 2 % (w/v) suspension 900 ml PO ONCE Qty: 900 0RF gabapentin 300 mg capsule 900 mg PO TID Qty: 270 3RF lisinopril 10 mg tablet 10 mg PO DAILY Qty: 90 1RF ibuprofen 800 mg tablet 800 mg PO TID Qty: 90 1RF anastrozole [Arimidex] 1 mg tablet 1 tab PO DAILY 0RF nitrofurantoin macrocrystal [Macrodantin] 100 mg capsule 100 mg PO BID 0RF Rx Instructions: must administer with a meal/food ferrous sulfate [iron] 325 mg (65 mg iron) Tablet 325 mg PO BID Qty: 60 3RF lactulose 20 gram/30 mL solution 20 g PO BID PRN (Reason: laxative effect) 15 Days Qty: 1200 0RF fluticasone propion-salmeterol [Advair Diskus] 250-50 mcg/dose blister with device 1 inh inhalation BID 0RF albuterol sulfate 2.5 mg /3 mL (0.083 %) solution for nebulization 2.5 mg inhalation Q4H PRN (Reason: Shortness Of Breath) 0RF sennosides [Natural Senna Laxative] 8.6 mg tablet 8.6 mg PO BEDTIME Qty: 30 3RF omeprazole 20 mg capsule,delayed release(DR/EC) 20 mg PO DAILY 30 Days Qty: 30 3RF
[2021-06-16 19:25] LABS: Alanine Aminotransferase 20 U/L (0-31); Albumin Level 4.4 g/dL (3.5-5.0); Alkaline Phosphatase 84 U/L (39-117); Aspartate Amino Transferase 17 U/L (5-31); Bilirubin Direct 0.3 mg/dL (0.0-0.5); Bilirubin Total 0.6 mg/dL (0.0-1.0); Lipase 25 U/L (8-78); Total Protein 7.2 g/dL (6.5-8.0)
[2021-06-16] MEDS: 0.9 % Sodium Chloride 1,000 ML 999 ML IV (19:36)
[2021-06-16] MEDS: ondansetron HCL 4 MG/2 ML VIAL IVPUSH (19:40)
[2021-06-16 19:57] VITALS: BP 182/119; PULSE 100; RESP 18; O2SAT 93
[2021-06-16 20:24] VITALS: BP 187/110; PULSE 100; RESP 18; TEMP 36.9; O2SAT 93
[2021-06-16 20:28] LABS: COVID-19 Test Negative (Negative); IDNOW Serial# 16C4AD1C
[2021-06-16] MEDS: Milk of Magnesia 30 ML ORAL.SUSP PO (20:33)
[2021-06-16] MEDS: bisacodyL 5 MG TABLET.DR PO (20:33)
[2021-06-16] MEDS: Labetalol HCL 100 MG/20 ML VIAL 10 MG IVPUSH (20:33)
[2021-06-16 20:52] LABS: Appearance Urine HAZY; Color Urine YELLOW; Glucose Urine UA NEG (NEG); Leukocyte Esterase Urine NEG (NEG); Nitrite Urine NEG (NEG); PH 5.5 (5.0-8.0); Specific Gravity - Urine 1.025 (1.005-1.025); UACC Culture Trigger NO; Urine Blood TRACE (NEG); Urine Ketones 40 MG/DL (NEG); Urine Protein TRACE MG/DL (NEG-TRACE)
[2021-06-16 20:56] VITALS: BP 168/106; PULSE 88; RESP 18; O2SAT 96
[2021-06-16 21:00] LABS: WBC Urine 0 /HPF (0-4)
[2021-06-16 21:05] LABS: Calcium Carbonate Crystals Ur 3+ /LPF; Squamous Epithelial Cell Urine 1+ /LPF
[2021-06-16 21:17] VITALS: BP 173/107; PULSE 89; O2SAT 95
--- NOTE | 2021-06-16 21:28 | PC.NURSE ---
MD made aware of BP upon discharge, he instructed pt to take her lisinopril when she gets home.
== END 2021-06-16 21:30 | disposition home or self-care (01) ==
PROVIDERS: Emergency Provider Internal Medicine; PCP Physician Assistant
DX: K59.00 Constipation, unspecified (principal); R11.10 Vomiting, unspecified; J45.909 Unspecified asthma, uncomplicated; Z20.822 Contact with and (suspected) exposure to COVID-19
CPT/HCPCS: 36415; 74018; 80048; 80076; 81001; 83690; 85025; 87635; 96361; 96374; 96375; 99284; J2405

== ENCOUNTER 2021-06-18 16:06 | Inpatient (IN) | payer OTHER, SELFPAY ==
--- NOTE | ~2021-06-18 | CT_ITS ---
EXAMINATION: CT HEAD WITHOUT CONTRAST CLINICAL INFORMATION: Hypertensive urgency COMPARISON: 02/20/2020 TECHNIQUE: Contiguous axial imaging was performed from the skull base to vertex without intravenous contrast. This CT examination was performed using dose optimization techniques as appropriate, variously including the following: * Automated exposure control * Adjustment of mA and/or kV according to patient size (this includes techniques or standardized protocols for targeted exams where dose is matched to indication/reason for exam; i.e. extremities or head) Use of iterative reconstruction technique DLP: 629 mGy-cm. FINDINGS: There is no evidence of acute intracranial hemorrhage or territorial infarction. No abnormal mass effect or midline shift is seen. Robles to white matter differentiation is well preserved. No extra-axial fluid collections are identified. No hydrocephalus. No significant volume loss. There is no abnormal attenuation within the brain parenchyma. The osseous structures and soft tissues are normal. The mastoid air cells and visualized portions of the paranasal sinuses are well aerated. CT/CT head/brain wo con IMPRESSION: No acute intracranial pathology.
--- NOTE | ~2021-06-18 | XR_ITS ---
EXAMINATION: XR CHEST CLINICAL INFORMATION: Nasogastric tube placement. COMPARISON: 06/19/[address] scan of the abdomen and pelvis dated 12/10/2020 as well as 06/18/2021. TECHNIQUE: Frontal view of the chest was obtained. FINDINGS: Support devices: Enteric tube shows interval retraction with tip overlying the region of the gastroesophageal junction given the moderate hiatal hernia. The lungs are clear. Dilated gas-filled loops of small and large bowel are noted. XR/XR chest 1V IMPRESSION: 1. Enteric tube tip appears retracted with tip in the region of the gastroesophageal junction given the moderate hiatal hernia. The side-port is positioned at the level the proximal to mid one third of the esophagus. Advancement is recommended, but correlate with intended positioning. 2. Dilated gas-filled loops of small and large bowel appear mildly increased compared to previous studies
--- NOTE | ~2021-06-18 | XR_ITS ---
EXAMINATION: XR CHEST CLINICAL INFORMATION: NG tube placement COMPARISON: Previous CT of the abdomen and pelvis from yesterday TECHNIQUE: Frontal view of the chest was obtained. FINDINGS: There is a nasogastric tube that projects over the cardiac silhouette. When compared with previous CT the end of the nasogastric tube is probably located in the esophageal hernia. The lung volumes are low. The lungs are clear. The cardiac and mediastinal contours appear prominent. This is probably related to low lung volumes. There is no pleural effusion or pneumothorax. There are dilated loops of bowel below the diaphragm. There are degenerative changes of the spine and at the shoulder joints. XR/XR chest 1V IMPRESSION: Nasogastric tube tip is probably in the esophageal hernia. Low lung volumes.
--- NOTE | ~2021-06-18 | CT_ITS ---
EXAMINATION: CT ABDOMEN AND PELVIS WITHOUT CONTRAST CLINICAL INFORMATION: Abdominal pain and distention COMPARISON: KUB 06/16/[address] abdomen pelvis 12/10/2020 TECHNIQUE: Multidetector volumetric imaging was performed from the superior aspect of the liver through the pubic symphysis. Sagittal and coronal reformatted images were obtained on the technologist's workstation. This CT examination was performed using dose optimization techniques as appropriate, variously including the following: *Automated exposure control *Adjustment of mA and/or kV according to patient size (this includes techniques or standardized protocols for targeted exams where dose is matched to indication/reason for exam; i.e. extremities or head) *Use of iterative reconstruction technique DLP: 594 mGy-cm FINDINGS: LUNG BASES: Bibasilar scarring is present. No consolidations or effusions are seen. No worrisome lung mass LIVER, GALLBLADDER, AND BILIARY TREE: The liver is normal in size, shape, and attenuation. Hepatic cysts are again seen. No focal hepatic lesion or biliary ductal dilatation is present. The gallbladder is unremarkable with no evidence of radiopaque gallstones, gallbladder wall thickening, or obvious pericholecystic inflammatory changes. PANCREAS: Unremarkable. SPLEEN: Unremarkable. ADRENAL GLANDS: Unremarkable. KIDNEYS AND URETERS: Again seen is some mild prominence of the renal collecting systems as well as bilateral nephrolithiasis, unchanged from the prior study. No worrisome renal masses are seen. BLADDER: Unremarkable. GASTROINTESTINAL TRACT: There is a moderate hiatal hernia present. There is marked dilatation of the entire colon with loops measuring as large as 8.5 cm. In the region of the rectum, a stricture or subtle mass may be present and colonoscopy is recommended for further evaluation. The small bowel is unremarkable. There is no pneumatosis. The appendix is none identified but there is no evidence of appendicitis. No ascites or free air. ABDOMINAL WALL: Again seen is a periumbilical hernia containing unobstructed small bowel. An additional ventral hernia is seen just above the pubic symphysis containing a knuckle of small bowel. LYMPH NODES: No retroperitoneal lymphadenopathy. VASCULAR: Calcific atherosclerotic changes are present in aorta without aneurysm. PELVIC VISCERA: Unremarkable. OSSEOUS STRUCTURES: Again seen are degenerative changes present spine most marked at L2-L3. There is bony fusion of L4-L5 with a disc spacer and pedicular screws. No bony destructive lesions or acute fractures. CT/CT abdomen pelvis wo con IMPRESSION: 1. Marked colonic dilatation. A obstructing rectal lesion cannot be excluded. 2. Bilateral nephrolithiasis and benign hepatic cysts again noted. 3. Two abdominal wall hernias as well as a hiatal hernia larger than previously noted This critical result was discussed with Val CHERY at 6:50 PM on the day of the and it was ascertained that the content and urgency of the report was understood at the time of direct communication. Fleischner guidelines were followed.
--- NOTE | 2021-06-18 16:21 | ED_ITS ---
HPI - Abdominal Pain General Chief Complaint: Abdominal Pain Stated Complaint: ABD PAIN,VOMITING Time Seen by Provider: 06/18/21 16:21 Source: patient, EMS and old records reviewed Mode of arrival: EMS Limitations: no limitations History of Present Illness HPI narrative: 66 y/o female with history of cerebral palsy, constipation, ventral hernia, asthma, depression, HTN, breast cancer, UTI, anemia, gastritis, hx rectal prolapse s/p sigmoid resection in 2019 who presents to the ER with ongoing abdominal pain x3 days and 5 episodes of vomiting today. She was seen here in the ED yesterday - had KUB showing constipation and discharged with Miralax and Zofran. She reports having a BM today with the Miralax. She is concerned about her hernia, it hurts whenever she moves. No fever or chills. MD elicited complaint: abdominal pain Pertinent past history: constipation Onset (ago): day(s) Pain Consistency: constant Location: diffuse Severity: moderate Quality: stabbing Radiation: none Migration to: no migration Exacerbating factors: eating and movement Context: history of similar episodes Associated symptoms: nausea and vomiting Related Data Home Medications Medication Instructions Recorded Confirmed albuterol sulfate 2.5 mg INHALATION Q4H PRN 11/14/19 05/14/21 fluticasone 250 mcg-salmeterol 50 1 inh INHALATION BID 11/14/19 05/14/21 mcg/dose blistr powdr for inhalation (Advair Diskus) anastrozole 1 mg tablet (Arimidex) 1 tab PO DAILY 10/22/20 05/14/21 nitrofurantoin macrocrystal 100 mg 100 mg PO BID 05/14/21 05/14/21 capsule (Macrodantin) Previous Rx's Medication Instructions Recorded Paxil CR 12.5 mg tablet,extended 12.5 mg PO DAILY #90 cap NS 09/11/20 release (paroxetine HCl) Paxil CR 25 mg tablet,extended 50 mg PO DAILY #180 tab NS 09/11/20 release (paroxetine HCl) montelukast 10 mg tablet 10 mg PO QPM #90 tab 09/24/20 barium sulfate 2 % (w/v) oral 900 ml PO ONCE #900 ml 12/04/20 suspension (Readi-Cat 2) lactulose 20 gram/30 mL oral 20 g (30 mL) PO BID PRN 15 Days 12/18/20 solution #1200 ml sennosides 8.6 mg tablet (Natural 8.6 mg PO BEDTIME #30 tab 01/24/21 Senna Laxative) gabapentin 300 mg capsule 900 mg PO TID #270 cap 03/10/21 lisinopril 10 mg tablet 10 mg PO DAILY #90 cap 04/10/21 ferrous sulfate 325 mg (65 mg 325 mg PO BID #60 tab 05/14/21 iron) tablet (iron) omeprazole 20 mg capsule,delayed 20 mg PO DAILY 30 Days #30 cap 05/27/21 release ibuprofen 800 mg tablet 800 mg PO TID #90 tab 06/11/21 ondansetron 4 mg disintegrating 4 mg PO Q6-8H PRN #7 tab 06/16/21 tablet polyethylene glycol 3350 17 17 g PO DAILY #510 g 06/16/21 gram/dose oral powder (Miralax) Allergies Allergy/AdvReac Type Severity Reaction Status Date / Time No Known Allergies Allergy Verified 06/03/21 09:00 [No Known Allergies*] Review of Systems Review of Systems Constitutional: No Fever, No Chills ENT/Mouth: No sore throat, No Rhinorrhea, No Swallowing Difficulty Eyes: No Eye Pain, No Swelling, No Redness Cardiovascular: No Chest Pain, No SOB, No Orthopnea, No Edema Respiratory: No Cough, No Sputum, No Wheezing, No dyspnea Gastrointestinal: + Nausea, + Vomiting, No Diarrhea, + abdominal Pain, No Hematochezia, No Melena Genitourinary: No Dysuria, No Urinary Frequency, No Hematuria Musculoskeletal: No joint pain, No Myalgias Skin: No Skin Lesions, No rash Neuro: No Weakness, No Numbness, No Dizziness, No Headache Psych: + Anxiety/Panic, No Depression Heme/Lymph: No Bruising, No Lymphadenopathy Endocrine: No Polyuria, No Polydipsia PMFSH Past Medical History Medical History Asthma Cerebral palsy Invasive lobular carcinoma of breast in female MDD (major depressive disorder) Prolapse of intestine Surgical History History of lumpectomy of right breast History of open sigmoidectomy Family History Family History Father Family history unknown Mother Breast cancer Brother No problems noted. Sister History of leukemia Social History Social History Household Members: None Housing: Apartment Are you a primary senior resident care director to a significant other at home: No Do you presently have visiting nurse or other home services: No Alcohol intake: former Patient Tobacco Use Status: Never used Tobacco e-Cigarette/Vaping Use: Never Used Advance Directives: Yes Advance Directives on File: Yes Advance Directives Date on File: 10/01/20 service: No Current occupational status: retired Physical Exam ED Vital Signs: Vital Signs - 24 hr 06/18/21 16:28 06/18/21 19:00 Temperature 98.3 F Pulse Rate 94 102 H Respiratory Rate 17 20 Blood Pressure 172/109 H 200/123 H Pulse Oximetry 94 94 BMI result Body Mass Index 26.8 Appearance: Alert. Oriented X3. No acute distress. Eyes: Pupils equal, round and reactive to light. ENT: Pharynx normal. Neck: Normal inspection. Neck supple. CVS: Normal heart rate and rhythm. Pulses normal. Respiratory: No respiratory distress. Breath sounds normal. Abdomen: Well healed longitudinal surgical scar, Softly distended, +tympanic, with moderate generalized tenderness. decreased +BS x4 Skin: Skin warm and dry. Normal skin color. Normal skin turgor. No rashes. Extremities: No lower extremity edema. Neuro: Oriented X 3. Speech is slow and hard to understand at times. nonfocal Course Course Course Narrative: 66 y/o female presents to the ER with diffuse abdominal pain, vomiting and distention. KUB yesterday showed nonobstructive bowel gas pattern. Given distention and tenderness will get CT scan for further evaluation. Reevaluation(s) Reevaluation #1: Labs unremarkable. She just had a frankie movement, small. Passing some flatus. Got critical result from [facility] - significant colonic distention with possible distal transition point. Will have Dr. Jose review the images. Reevaluation #2: Dr. Jose will admit - history of sigmoid colectomy for rectal prolapse and now with a stricture. Patient updated on plan of care. HTN 200/100, hx HTN on low dose lisinopril which she took today but vomited up. Will give a dose of IV labetalol and reassess. She is asymptomatic. Consultations Consultation #1: Dr. Jose - General Surgery MDM - Abdominal Pain Medical Records Attestation: I reviewed the patient's medical records. Lab Data Attestation: I reviewed the patient's lab results. Result diagrams: 06/18/21 16:59 06/18/21 16:59 Labs: Lab Results 06/18/21 06/18/21 06/18/21 Range/Units 16:59 16:59 16:59 WBC 8.4 (4.8-10.8) X10*3/uL RBC 4.60 (4.20-5.50) X10*6/uL Hgb 12.1 (12.0-16.0) g/dl Hct 38.3 (37.0-47.0) % MCV 83.3 (80.0-98.0) fL MCH 26.3 L (27.0-33.0) pg MCHC 31.6 (31.0-35.0) g/dl RDW 16.7 H (11.0-16.0) % Plt Count 273 (160-400) X10*3/uL MPV 9.4 (9.4-12.3) fL Immature Gran % (Auto) 0.5 H (0.0-0.4) % Neut % (Auto) 76.0 H (45-73) % Lymph % (Auto) 11.4 L (20-40) % [place] % (Auto) 11.8 H (2-11) % Eos % (Auto) 0.1 (0-4) % Baso % (Auto) 0.2 (0-2) % Lymph # (Auto) 1.0 L (1.2-4.9) X10*3/uL [place] # (Auto) 1.0 (0.1-1.2) X10*3/uL Eos # (Auto) 0.0 (0.0-0.4) X10*3/uL Baso # (Auto) 0.0 (0.0-0.2) X10*3/uL Abs Immat Gran (auto) 0.04 H (0.00-0.03) X10*3/uL Absolute Neuts (auto) 6.4 (2.0-8.3) x10*3/uL Absolute Nucleated RBC 0.000 (0.0-0.012) X10*3/uL Nucleated RBC % (auto) 0.0 (0.0-0.2) /100WBC Sodium 138 (135-145) mmol/L Potassium 3.0 L (3.3-5.1) mmol/L Chloride 105 (96-108) mmol/L Carbon Dioxide 21 L (22-29) mmol/L Anion Gap 15 (12-20) BUN 24 H (9-16) mg/dL Creatinine 0.83 (0.5-1.4) mg/dL Estim Creat Clear Calc 61.1 Estimated GFR > 60 Random Glucose 133 H (60-115) mg/dL Lactic Acid 0.7 (0.5-2.0) mmol/L Calcium 9.2 (8.4-10.2) mg/dL Magnesium 1.9 (1.6-2.6) mg/dL Total Bilirubin 0.6 (0.0-1.0) mg/dL Direct Bilirubin 0.3 (0.0-0.5) mg/dL AST 15 (5-31) U/L ALT 18 (0-31) U/L Alkaline Phosphatase 67 D (39-117) U/L Total Protein 6.2 L (6.5-8.0) g/dL Albumin 3.9 (3.5-5.0) g/dL Lipase 6 L (8-78) U/L COVID-19 (CHARLEY) (Negative) COVID-19 Clin Com Influenza Type A (JOSE) (Negative) Influenza Type B (JOSE) (Negative) Influenza A & B Note 06/18/21 06/18/21 Range/Units 16:59 16:59 WBC (4.8-10.8) X10*3/uL RBC (4.20-5.50) X10*6/uL Hgb (12.0-16.0) g/dl Hct (37.0-47.0) % MCV (80.0-98.0) fL MCH (27.0-33.0) pg MCHC (31.0-35.0) g/dl RDW (11.0-16.0) % Plt Count (160-400) X10*3/uL MPV (9.4-12.3) fL Immature Gran % (Auto) (0.0-0.4) % Neut % (Auto) (45-73) % Lymph % (Auto) (20-40) % [place] % (Auto) (2-11) % Eos % (Auto) (0-4) % Baso % (Auto) (0-2) % Lymph # (Auto) (1.2-4.9) X10*3/uL [place] # (Auto) (0.1-1.2) X10*3/uL Eos # (Auto) (0.0-0.4) X10*3/uL Baso # (Auto) (0.0-0.2) X10*3/uL Abs Immat Gran (auto) (0.00-0.03) X10*3/uL Absolute Neuts (auto) (2.0-8.3) x10*3/uL Absolute Nucleated RBC (0.0-0.012) X10*3/uL Nucleated RBC % (auto) (0.0-0.2) /100WBC Sodium (135-145) mmol/L Potassium (3.3-5.1) mmol/L Chloride (96-108) mmol/L Carbon Dioxide (22-29) mmol/L Anion Gap (12-20) BUN (9-16) mg/dL Creatinine (0.5-1.4) mg/dL Estim Creat Clear Calc Estimated GFR Random Glucose (60-115) mg/dL Lactic Acid (0.5-2.0) mmol/L Calcium (8.4-10.2) mg/dL Magnesium (1.6-2.6) mg/dL Total Bilirubin (0.0-1.0) mg/dL Direct Bilirubin (0.0-0.5) mg/dL AST (5-31) U/L ALT (0-31) U/L Alkaline Phosphatase (39-117) U/L Total Protein (6.5-8.0) g/dL Albumin (3.5-5.0) g/dL Lipase (8-78) U/L COVID-19 (CHARLEY) Negative (Negative) COVID-19 Clin Com See Note Influenza Type A (JOSE) Negative (Negative) Influenza Type B (JOSE) Negative (Negative) Influenza A & B Note See Note Critical Care Time Critical Care Time Critical Care Time: No Discharge Plan Discharge Clinical Impression: Colonic stricture, Vomiting, Acute hypokalemia Patient Disposition: Admitted As Inpatient
[2021-06-18 16:28] VITALS: BP 134/90; BP 172/109; PULSE 107; PULSE 94; RESP 17; TEMP 36.8; O2SAT 94; BMI 26.8
[2021-06-18 17:06] LABS: MANUAL DIFF FLAG NO
[2021-06-18 17:16] LABS: Basophils Percent Auto 0.2 % (0-2); Eosinophils Percent Auto 0.1 % (0-4); Hematocrit 38.3 % (37.0-47.0); Hemoglobin 12.1 g/dl (12.0-16.0); Imm Gran Abs Auto 0.04 X10*3/uL (0.00-0.03); Imm Gran Pct Auto 0.5 % (0.0-0.4); Lymphocytes Percent Auto 11.4 % (20-40); Mean Corpuscular HGB Conc 31.6 g/dl (31.0-35.0); Mean Corpuscular Hemoglobin 26.3 pg (27.0-33.0); Mean Corpuscular Volume 83.3 fL (80.0-98.0); Mean Platelet Volume 9.4 fL (9.4-12.3); Monocytes Percent Auto 11.8 % (2-11); Neutrophils Absolute Auto 6.4 x10*3/uL (2.0-8.3); Platelet Count 273 X10*3/uL (160-400); Red Cell Distribution Width 16.7 % (11.0-16.0); White Blood Count 8.4 X10*3/uL (4.8-10.8)
[2021-06-18 17:25] LABS: Lactic Acid 0.7 mmol/L (0.5-2.0)
[2021-06-18 17:28] LABS: COVID-19 Test Negative (Negative); IDNOW Serial# 16C4AD1C; Influenza A Negative (Negative); Influenza B2 Negative (Negative)
[2021-06-18 17:31] LABS: Alanine Aminotransferase 18 U/L (0-31); Albumin Level 3.9 g/dL (3.5-5.0); Alkaline Phosphatase 67 U/L (39-117); Anion Gap 15 (12-20); Aspartate Amino Transferase 15 U/L (5-31); Bilirubin Direct 0.3 mg/dL (0.0-0.5); Bilirubin Total 0.6 mg/dL (0.0-1.0); Blood Urea Nitrogen 24 mg/dL (9-16); Calcium 9.2 mg/dL (8.4-10.2); Carbon Dioxide 21 mmol/L (22-29); Chloride 105 mmol/L (96-108); Creatinine Clr Calc Pharmacy 61.1; Estimated Glomerular Filt Rate > 60; Glucose Random 133 mg/dL (60-115); Lipase 6 U/L (8-78); Magnesium 1.9 mg/dL (1.6-2.6); Sodium 138 mmol/L (135-145); Total Protein 6.2 g/dL (6.5-8.0)
[2021-06-18 19:00] VITALS: BP 200/123; PULSE 102; RESP 20; O2SAT 94
[2021-06-18 19:48] VITALS: BP 184/118; PULSE 105; RESP 18; O2SAT 95
--- NOTE | 2021-06-18 20:22 | PHA.MEDREC ---
Pharmacy Consult ? Medication Reconciliation Pharmacy has completed the medication reconciliation. Take takes paxil cr 12.5 mg and paxil cr 25 mg (62.5 mg total). Last use of advair was roughly 4 months ago
[2021-06-18] MEDS: Enoxaparin Sodium 40 MG/0.4 ML SYRINGE SUBCUT (20:52)
[2021-06-18] MEDS: Dextrose 5 % and Lactated Ring 1,000 ML 125 ML IVCONT (20:52)
[2021-06-18 21:58] VITALS: BP 200/115; PULSE 88; RESP 18; O2SAT 96
[2021-06-18 22:07] VITALS: RESP 16
[2021-06-18] MEDS: Morphine Sulfate 4 MG/ML CARTRIDGE IVPUSH (22:07)
[2021-06-18] MEDS: lisinopriL 10 MG TABLET PO (22:16)
[2021-06-18] MEDS: ondansetron HCL 4 MG/2 ML VIAL IVPUSH (22:16)
[2021-06-19] VITALS (18 sets, daily range): BP systolic 149–212; BP diastolic 102–140; PULSE 84–101; RESP 13–20; TEMP 36.7–37.2; O2SAT 93–97; BMI 26.9
[2021-06-19 02:13] LABS: Appearance Urine CLEAR; Color Urine YELLOW; Glucose Urine UA NEG (NEG); Leukocyte Esterase Urine TRACE (NEG); Nitrite Urine NEG (NEG); UACC Culture Trigger NO; Urine Blood 2+ (NEG); Urine Ketones 40 MG/DL (NEG); Urine Protein NEG (NEG-TRACE)
[2021-06-19 02:33] LABS: Amorphous Sediment Urine 3+ /LPF; Bacteria Urine 3+ /LPF; Calcium Oxalate Crystals Urine 4+ /LPF; Mucus Urine TRACE /LPF; Squamous Epithelial Cell Urine 2+ /LPF
[2021-06-19 02:34] LABS: UACC CULT YES
--- NOTE | 2021-06-19 03:01 | PC.NURSE ---
Pt complaining of nausea and presenting with persistent nausea and vomiting. Hospitalist ordered BP med and directed this RN to give zofran early.
[2021-06-19] MEDS: hydrALAZINE HCl 20 MG/ML VIAL 10 MG IVPUSH ×2 (03:19→21:37)
[2021-06-19] MEDS: ondansetron HCL 4 MG/2 ML VIAL IVPUSH ×2 (03:20→08:51)
[2021-06-19] MEDS: Dextrose 5 % and Lactated Ring 1,000 ML 125 ML IVCONT ×3 (04:27→19:35)
[2021-06-19 04:45] LABS: MANUAL DIFF FLAG NO
[2021-06-19 04:46] LABS: Basophils Percent Auto 0.2 % (0-2); Eosinophils Percent Auto 0.1 % (0-4); Hematocrit 38.8 % (37.0-47.0); Hemoglobin 12.5 g/dl (12.0-16.0); Imm Gran Abs Auto 0.03 X10*3/uL (0.00-0.03); Imm Gran Pct Auto 0.3 % (0.0-0.4); Lymphocytes Absolute Auto 1.2 X10*3/uL (1.2-4.9); Lymphocytes Percent Auto 13.2 % (20-40); Mean Corpuscular HGB Conc 32.2 g/dl (31.0-35.0); Mean Corpuscular Hemoglobin 26.7 pg (27.0-33.0); Mean Corpuscular Volume 82.7 fL (80.0-98.0); Mean Platelet Volume 9.9 fL (9.4-12.3); Monocytes Absolute Auto 1.1 X10*3/uL (0.1-1.2); Monocytes Percent Auto 12.7 % (2-11); Neutrophils Absolute Auto 6.4 x10*3/uL (2.0-8.3); Neutrophils Percent Auto 73.5 % (45-73); Platelet Count 313 X10*3/uL (160-400); Red Blood Count 4.69 X10*6/uL (4.20-5.50); Red Cell Distribution Width 16.8 % (11.0-16.0); White Blood Count 8.7 X10*3/uL (4.8-10.8)
[2021-06-19 05:14] LABS: Anion Gap 16 (12-20); Blood Urea Nitrogen 23 mg/dL (9-16); Calcium 9.2 mg/dL (8.4-10.2); Carbon Dioxide 21 mmol/L (22-29); Chloride 107 mmol/L (96-108); Creatinine Clr Calc Pharmacy 70.5; Estimated Glomerular Filt Rate > 60; Glucose Random 150 mg/dL (60-115); Potassium 3.5 mmol/L (3.3-5.1); Sodium 140 mmol/L (135-145)
--- NOTE | 2021-06-19 07:51 | PM.HPGS ---
History of Present Illness History of Present Illness Date of Service: 06/19/21 Chief complaint: Colonic Stricture Narrative: Nayla Lepe is a 66 year old female With a previous history of rectal prolapse, Breast cancer, spastic cerebral palsy and asthma, S/P sigmoid colectomy with rectopexy in 2019 now presenting with progressive abdominal distension, nausea, vomiting, and abdominal pain. Patient's bowels have been becoming more difficult to pass. Patient reports proximally 2 weeks history of increased abdominal pain throughout the abdomen. She subsequently presented to the emergency department for further evaluation. She was noted be diffusely distended. CT of the abdomen and pelvis revealed colonic distension with a possible stricture in the rectum. This appears to be at the site of previous anastomosis although rectal tumor cannot be ruled out. Patient is admitted for further management of this Large bowel obstruction. Review of Systems Review of Systems: Yes all other systems are reviewed and are negative Constitutional: Constitutional: Reports difficulty sleeping, Reports fatigue and Reports poor appetite Cardiovascular: Cardiovascular: Denies chest pain, Denies irregular heart rhythm and Denies palpitations Respiratory: Respiratory: Denies chest congestion, Denies cough, Denies hemoptysis and Denies stridor Gastrointestinal: Gastrointestinal: Reports abdominal pain, Reports constipation, Reports GI cramping, Reports nausea and Reports vomiting Musculoskeletal: Musculoskeletal: Reports muscle cramps, Reports muscle weakness and Reports stiffness Neurologic: Reports as per HPI Endocrine: Endocrine: Reports fatigue and Denies palpitations PMF Past Medical History Medical History Asthma Cerebral palsy Invasive lobular carcinoma of breast in female MDD (major depressive disorder) Prolapse of intestine Family History Family History Father Family history unknown Mother Breast cancer Brother No problems noted. Sister History of leukemia Surgical History Surgical History History of lumpectomy of right breast History of open sigmoidectomy Social History Social History Household Members: None Housing: Apartment Are you a primary special needs caregiver to a significant other at home: No Do you presently have visiting nurse or other home services: No Alcohol intake: former Patient Tobacco Use Status: Never used Tobacco e-Cigarette/Vaping Use: Never Used Advance Directives: Yes Advance Directives on File: Yes Advance Directives Date on File: 10/01/20 service: No Current occupational status: retired Meds Allergies Allergy/AdvReac Type Severity Reaction Status Date / Time No Known Allergies Allergy Verified 06/03/21 09:00 [No Known Allergies*] Active Medications: Current Medications Acetaminophen (Acetaminophen 325 Mg Tablet) 650 mg PO Q6H PRN PRN Reason: Pain, Mild (Pain Scale 1-3) Enoxaparin Sodium (Enoxaparin Sodium 40 Mg/0.4 Ml Syringe) 40 mg SUBCUT Q24H [facility] Last Admin: 06/18/21 20:52 Dose: 40 mg Documented by: Dextrose/Lactated Ringer's (D5lr) 1,000 mls @ 125 mls/hr IVCONT .Q8H [facility] Last Admin: 06/19/21 04:27 Dose: 125 mls/hr Documented by: Morphine Sulfate (Morphine Sulfate 4 Mg/Ml Cartridge) 4 mg IVPUSH Q4H PRN; Protocol PRN Reason: Pain, Severe (Pain Scale 7-10) Last Admin: 06/18/21 22:07 Dose: 4 mg Documented by: Ondansetron HCl (Ondansetron Hcl 4 Mg/2 Ml Vial) 4 mg IVPUSH Q8H PRN PRN Reason: Nausea Last Admin: 06/19/21 03:20 Dose: 4 mg Documented by: Pharmacy Consult (Consult Rx Perform Med Rec) 1 each MISCELLANE ONCE PRN PRN Reason: Consult order Pharmacy Consult (Consult Rx Perform Med Rec) 1 each MISCELLANE ONCE PRN PRN Reason: Consult order Sodium Chloride (0.9 % Sodium Chloride Flush 3 Ml Syringe) 3 ml IVFLUSH QSHIFT [facility] Last Admin: 06/19/21 01:27 Dose: Not Given Documented by: Zolpidem Tartrate (Zolpidem Tartrate 5 Mg Tablet) 5 mg PO BEDTIME PRN PRN Reason: Insomnia Home Medications Medication Instructions Recorded Confirmed Last Taken Type albuterol sulfate 2.5 mg INHALATION Q4H PRN 11/14/19 06/18/21 Unknown History anastrozole 1 mg tablet (Arimidex) 1 tab PO DAILY 10/22/20 06/18/21 06/18/21 History montelukast 10 mg tablet 10 mg PO BEDTIME 06/18/21 06/18/21 06/17/21 History ondansetron 4 mg disintegrating 1 tab PO Q6-8H PRN 06/18/21 06/18/21 Unknown History tablet sennosides 8.6 mg tablet (Natural 8.6 mg PO BEDTIME PRN 06/18/21 06/18/21 06/18/21 History Senna Laxative) Physical Exam Vital Signs: Vital Signs: Last Vital Signs Temp 98.1 F 06/19/21 07:20 Pulse 89 06/19/21 07:20 Resp 17 06/19/21 07:20 BP 170/103 H 06/19/21 07:20 Pulse Ox 94 06/19/21 07:20 BMI result Body Mass Index 26.8 Const: General: no acute distress and awake Nutritional Appearance: well nourished Orientation/consciousness: patient oriented x3 Limitations: no limitations HEENT: Head: Yes normocephalic and Yes atraumatic Ears: hearing grossly normal bilaterally Resp: Effort & Inspection: normal respiratory effort, no audible wheezes, no cough and no respiratory distress Cardio: Jugular venous distension: no JVD Rate: regular rate Rhythm: regular rhythm GI: Inspection: Yes distended Palpation (GI): Soft to palpation and Tenderness to palpation present (GI) Percussion: Yes tympanic to percussion Auscultation: abnormal bowel sounds Rectal Exam - Female: deferred Skin: General skin exam: no rashes or lesions noted Neuro: General: patient oriented x3 Extrem: General: Yes no clubbing, cyanosis or edema Results Results Labs: Short CBC 06/18/21 06/19/21 Range/Units 16:59 04:20 WBC 8.4 8.7 (4.8-10.8) X10*3/uL Hgb 12.1 12.5 (12.0-16.0) g/dl Hct 38.3 38.8 (37.0-47.0) % Plt Count 273 313 (160-400) X10*3/uL [facility] 06/18/21 06/19/21 16:59 04:20 Sodium 138 140 Potassium 3.0 L 3.5 Chloride 105 107 Carbon Dioxide 21 L 21 L BUN 24 H 23 H Creatinine 0.83 0.72 Calcium 9.2 9.2 Liver Function 05/11/22 Range/Units 16:59 Total Bilirubin 0.6 (0.0-1.0) mg/dL Direct Bilirubin 0.3 (0.0-0.5) mg/dL AST 15 (5-31) U/L ALT 18 (0-31) U/L Alkaline Phosphatase 67 D (39-117) U/L Albumin 3.9 (3.5-5.0) g/dL Urine 06/18/21 Range/Units 22:00 Urine Color YELLOW Urine Appearance CLEAR Urine pH 6.0 (5.0-8.0) Ur Specific [place] 1.020 (1.005-1.025) Urine Protein NEG (NEG-TRACE) MG/DL Urine Glucose (UA) NEG (NEG) MG/DL Assessment and Plan (1) Colonic stricture: Status: Acute patient S/P sigmoid resection with rectopexy for rectal prolapse now without apparent colonic stricture verses malignancy. Will make patient NPO, IV fluids, GI consultation for possible colonoscopy / sigmoidoscopy. May be candidate for dilation of stricture if present ? (2) Constipation: Qualifiers: Constipation type: outlet dysfunction constipation Qualified Code(s): K59.02 - Outlet dysfunction constipation Status: Acute constipation appears to be related to colonic stricture (3) Asthma: Status: Acute resume previous medications (4) HTN (hypertension): Qualifiers: Hypertension type: essential hypertension Qualified Code(s): I10 - Essential (primary) hypertension Status: Acute BP elevated. Will restart medications. Hospitalist consultation requested. Quality Stroke Does the patient have a stroke diagnosis?: No VTE Prior VTE?: No VTE Risk Level:: Surgical - high VTE Device Contraindication: N/A - Device Ordered VTE Drug Contraindication: N/A - Med Ordered Procedures Date of Service Date of Service: 06/19/21
[2021-06-19] MEDS: Morphine Sulfate 4 MG/ML CARTRIDGE IVPUSH (08:51)
[2021-06-19] MEDS: Omeprazole 20 MG CAPSULE.DR PO (08:53)
[2021-06-19] MEDS: Gabapentin 300 MG CAPSULE 900 MG PO ×3 (08:54→21:38)
[2021-06-19] MEDS: lisinopriL 10 MG TABLET PO ×2 (08:54→14:07)
[2021-06-19] MEDS: 0.9 % Sodium Chloride Flush 3 ML SYRINGE IVFLUSH (08:54)
[2021-06-19] MEDS: PARoxetine HCL 10 MG TABLET PO (08:57)
[2021-06-19] MEDS: PARoxetine HCL 20 MG TABLET 40 MG PO (08:57)
[2021-06-19] MEDS: Anastrozole 1 MG TABLET PO (08:57)
--- NOTE | 2021-06-19 09:46 | HO.PM.IMCN ---
History of Present Illness Data of Consult Service Date: 06/19/21 Primary Care Provider: Polo Nascimento PA-C HPI Reason for consult: Medical Mgmt This is a 66 yo F with a PMH as outlined below who presented to the ED with progressive abdominal pain and distension of about 2 weeks duration. There is associated difficult passing stool / constipation along with nausea and vomiting. She has a prior history of rectal prolapse and a history of sigmoid colectomy with rectopexy in 2019. Work up in the ED showed a distended colon and possible rectal stricture. She has been subsequently admitted. Medical consult requsted for medical mgmt. Pt is seen and examined in the ED. She reports that he rpain is 10/10 currently and her current analgesic regime brings it down to a 7. She denies any current nausea or vomiting. She reports a good appetite. She denies fevers or chills. Review of Systems Review of Systems: negative except HPI [facility] Medical History Asthma Cerebral palsy Invasive lobular carcinoma of breast in female MDD (major depressive disorder) Prolapse of intestine Family History Father Family history unknown Mother Breast cancer Brother No problems noted. Sister History of leukemia Surgical History History of lumpectomy of right breast History of open sigmoidectomy Social History Household Members: None Housing: Apartment Are you a primary care manager to a significant other at home: No Do you presently have visiting nurse or other home services: No Alcohol intake: former Patient Tobacco Use Status: Never used Tobacco e-Cigarette/Vaping Use: Never Used Advance Directives: Yes Advance Directives on File: Yes Advance Directives Date on File: 10/01/20 service: No Current occupational status: retired Meds Allergies Allergy/AdvReac Type Severity Reaction Status Date / Time No Known Allergies Allergy Verified 06/03/21 09:00 [No Known Allergies*] Active Medications: Current Medications Acetaminophen (Acetaminophen 325 Mg Tablet) 650 mg PO Q6H PRN PRN Reason: Pain, Mild (Pain Scale 1-3) Albuterol Sulfate (Albuterol Sulfate (0.083%) 2.5 Mg/3 Ml Vial.Neb) 2.5 mg INHALE Q4H PRN PRN Reason: Shortness Of Breath Anastrozole (Anastrozole 1 Mg Tablet) 1 mg PO DAILY [facility] Last Admin: 06/19/21 08:57 Dose: 1 mg Documented by: Enoxaparin Sodium (Enoxaparin Sodium 40 Mg/0.4 Ml Syringe) 40 mg SUBCUT Q24H [facility] Last Admin: 06/18/21 20:52 Dose: 40 mg Documented by: Gabapentin (Gabapentin 300 Mg Capsule) 900 mg PO TID [facility] Last Admin: 06/19/21 08:54 Dose: 900 mg Documented by: Dextrose/Lactated Ringer's (D5lr) 1,000 mls @ 125 mls/hr IVCONT .Q8H [facility] Last Admin: 06/19/21 04:27 Dose: 125 mls/hr Documented by: Lisinopril (Lisinopril 10 Mg Tablet) 10 mg PO DAILY [facility]; Protocol Last Admin: 06/19/21 08:54 Dose: 10 mg Documented by: Montelukast Sodium (Montelukast Sodium 10 Mg Tablet) 10 mg PO BEDTIME [facility] Morphine Sulfate (Morphine Sulfate 4 Mg/Ml Cartridge) 4 mg IVPUSH Q4H PRN; Protocol PRN Reason: Pain, Severe (Pain Scale 7-10) Last Admin: 06/19/21 08:51 Dose: 4 mg Documented by: Omeprazole (Omeprazole 20 Mg Capsule.Dr) 20 mg PO DAILY@0630 [facility] Last Admin: 06/19/21 08:53 Dose: 20 mg Documented by: Ondansetron HCl (Ondansetron Hcl 4 Mg/2 Ml Vial) 4 mg IVPUSH Q8H PRN PRN Reason: Nausea Last Admin: 06/19/21 08:51 Dose: 4 mg Documented by: Paroxetine HCl (Paroxetine Hcl 20 Mg Tablet) 40 mg PO DAILY [facility] Last Admin: 06/19/21 08:57 Dose: 40 mg Documented by: Paroxetine HCl (Paroxetine Hcl 10 Mg Tablet) 10 mg PO DAILY [facility] Last Admin: 06/19/21 08:57 Dose: 10 mg Documented by: Pharmacy Consult (Consult Rx Perform Med Rec) 1 each MISCELLANE ONCE PRN PRN Reason: Consult order Pharmacy Consult (Consult Rx Perform Med Rec) 1 each MISCELLANE ONCE PRN PRN Reason: Consult order Sodium Chloride (0.9 % Sodium Chloride Flush 3 Ml [facility]ringe) [facility] Admin: 06/19/21 08:54 Dose: 3 ml Documented by: Zolpidem Tartrate (Zolpidem Tartrate 5 Mg Tablet) 5 mg PO BEDTIME PRN PRN Reason: Insomnia Home Medications Medication Instructions Recorded Confirmed Last Taken Type albuterol sulfate 2.5 mg INHALATION Q4H PRN 11/14/19 06/18/21 Unknown History anastrozole 1 mg tablet (Arimidex) 1 tab PO DAILY 10/22/20 06/18/21 06/18/21 History montelukast 10 mg tablet 10 mg PO BEDTIME 06/18/21 06/18/21 06/17/21 History ondansetron 4 mg disintegrating 1 tab PO Q6-8H PRN 06/18/21 06/18/21 Unknown History tablet sennosides 8.6 mg tablet (Natural 8.6 mg PO BEDTIME PRN 06/18/21 06/18/21 06/18/21 History Senna Laxative) Physical Exam Vital Signs and Narrative: Vital Signs: Last Vital Signs Temp 98.1 F 06/19/21 07:20 Pulse 94 06/19/21 08:39 Resp 17 06/19/21 08:39 BP 180/113 H 06/19/21 08:39 Pulse Ox 97 06/19/21 08:39 BMI result Body Mass Index 26.8 Const: Other: General - in pain Cardiovascular - regular rate and rhythm, S1-S2 Lungs - normal respiratory effort, clear to auscultation bilaterally, no wheezing Abdomen - diffusely distended and tender; no rebound/guarding Extremities - no edema bilaterally Neuro - awake and alert Results Labs CBC and Chem 7: 06/19/21 04:20 06/19/21 04:20 Labs: Laboratory Results - last 24 hr 06/18/21 06/18/21 06/18/21 16:59 16:59 16:59 MCV 83.3 MCH 26.3 L MCHC 31.6 RDW 16.7 H Plt Count 273 MPV 9.4 Immature Gran % (Auto) 0.5 H Neut % (Auto) 76.0 H Lymph % (Auto) 11.4 L [place] % (Auto) 11.8 H Eos % (Auto) 0.1 Baso % (Auto) 0.2 Lymph # (Auto) 1.0 L [place] # (Auto) 1.0 Eos # (Auto) 0.0 Baso # (Auto) 0.0 Abs Immat Gran (auto) 0.04 H Absolute Neuts (auto) 6.4 Absolute Nucleated RBC 0.000 Nucleated RBC % (auto) 0.0 Anion Gap 15 Estim Creat Clear Calc 61.1 Estimated GFR > 60 Random Glucose 133 H Lactic Acid 0.7 Calcium 9.2 Magnesium 1.9 Total Bilirubin 0.6 Direct Bilirubin 0.3 AST 15 ALT 18 Alkaline Phosphatase 67 D Total Protein 6.2 L Albumin 3.9 Lipase 6 L Urine Color Urine Appearance Urine pH Ur Specific [place] Urine Protein Urine Glucose (UA) Urine Ketones Urine Blood Urine Nitrite Ur Leukocyte Esterase Urine RBC Urine WBC Ur Squamous Epith Cells Calcium Oxalate Crystal Amorphous Sediment Urine Bacteria Urine Mucus COVID-19 (CHARLEY) COVID-19 Clin Com Influenza Type A (JOSE) Influenza Type B (JOSE) Influenza A & B Note 06/18/21 06/18/21 06/18/21 16:59 16:59 22:00 MCV MCH MCHC RDW Plt Count MPV Immature Gran % (Auto) Neut % (Auto) Lymph % (Auto) [place] % (Auto) Eos % (Auto) Baso % (Auto) Lymph # (Auto) [place] # (Auto) Eos # (Auto) Baso # (Auto) Abs Immat Gran (auto) Absolute Neuts (auto) Absolute Nucleated RBC Nucleated RBC % (auto) Anion Gap Estim Creat Clear Calc Estimated GFR Random Glucose Lactic Acid Calcium Magnesium Total Bilirubin Direct Bilirubin AST ALT Alkaline Phosphatase Total Protein Albumin Lipase Urine Color YELLOW Urine Appearance CLEAR Urine pH 6.0 Ur Specific [place] 1.020 Urine Protein NEG Urine Glucose (UA) NEG Urine Ketones 40 Urine Blood 2+ H Urine Nitrite NEG Ur Leukocyte Esterase TRACE H Urine RBC 10-14 H Urine WBC 1-4 Ur Squamous Epith Cells 2+ Calcium Oxalate Crystal 4+ Amorphous Sediment 3+ Urine Bacteria 3+ Urine Mucus TRACE COVID-19 (CHARLEY) Negative COVID-19 Clin Com See Note Influenza Type A (JOSE) Negative Influenza Type B (JOSE) Negative Influenza A & B Note See Note 06/19/21 06/19/21 04:20 04:20 MCV 82.7 MCH 26.7 L MCHC 32.2 RDW 16.8 H Plt Count 313 MPV 9.9 Immature Gran % (Auto) 0.3 Neut % (Auto) 73.5 H Lymph % (Auto) 13.2 L [place] % (Auto) 12.7 H Eos % (Auto) 0.1 Baso % (Auto) 0.2 Lymph # (Auto) 1.2 [place] # (Auto) 1.1 Eos # (Auto) 0.0 Baso # (Auto) 0.0 Abs Immat Gran (auto) 0.03 Absolute Neuts (auto) 6.4 Absolute Nucleated RBC 0.000 Nucleated RBC % (auto) 0.0 Anion Gap 16 Estim Creat Clear Calc 70.5 Estimated GFR > 60 Random Glucose 150 H Lactic Acid Calcium 9.2 Magnesium Total Bilirubin Direct Bilirubin AST ALT Alkaline Phosphatase Total Protein Albumin Lipase Urine Color Urine Appearance Urine pH Ur Specific [place] Urine Protein Urine Glucose (UA) Urine Ketones Urine Blood Urine Nitrite Ur Leukocyte Esterase Urine RBC Urine WBC Ur Squamous Epith Cells Calcium Oxalate Crystal Amorphous Sediment Urine Bacteria Urine Mucus COVID-19 (CHARLEY) COVID-19 Clin Com Influenza Type A (JOSE) Influenza Type B (JOSE) Influenza A & B Note Imaging Radiologist's Impressions: Impressions Abdomen/Pelvis CT 06/18/21 17:24 IMPRESSION: 1. Marked colonic dilatation. A obstructing rectal lesion cannot be excluded. 2. Bilateral nephrolithiasis and benign hepatic cysts again noted. 3. Two abdominal wall hernias as well as a hiatal hernia larger than previously noted This critical result was discussed with Val CHERY at 6:50 PM on the day of the and it was ascertained that the content and urgency of the report was understood at the time of direct communication. Fleischner guidelines were followed. Head CT 06/19/21 04:20 IMPRESSION: No acute intracranial pathology. Assessment and Plan Plan 66 yo F with a PMH of HTN, asthma, spastic CP, breast ca, prior sigmoid colectomy who is admitted for large bowel obstruction. Medical consult requested for medical mgmt. 1. Uncontorlled HTN she appears to be only on lisinopril 10mg at home currently, bp is significantly elevated -- at least partially due to pain. will titrate BP meds as required 2. Chronic asthma continue baseline meds 3. Abdominal pain secondary to large bowel obstruction pain inadequately controlled will switch her morphine to dilaudid 4. Spastic CP continue baseline meds Will follow along with you.
--- NOTE | 2021-06-19 13:43 | MHC.CM.PN ---
Met with pt who has speech impairment r/t CP but can communicate her needs and comprehends all information. 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 She has a life alert and her apt is handicapped accessible. info verified: HCP on file: IMM in chart. [employer] x 4. Pt should be able to return to home when medically stable. Next of contact, Tomas to transport. CM to follow.
--- NOTE | 2021-06-19 15:05 | PC.NURSE ---
Provider notified about BP, awaiting orders.
[2021-06-19] MEDS: Labetalol HCL 100 MG/20 ML VIAL 10 MG IVPUSH (15:49)
[2021-06-19] MEDS: Pantoprazole Sodium 40 MG/10 ML VIAL IVPUSH (17:06)
--- NOTE | 2021-06-19 17:10 | PM.GICN ---
History of Present Illness Data of Consult Service Date: 06/19/21 Requesting physician: Manuel Jose Primary Care Provider: JAVI Morton Reason for consult: Colonic stricture 66 y/o female with history of cerebral palsy, constipation, ventral hernia, asthma, depression, HTN, breast cancer, UTI, anemia, gastritis, hx rectal prolapse s/p sigmoid resection in 2019 who presents to the ER with ongoing abdominal pain x3 days and 5 episodes of vomiting today. She was seen here in the ED yesterday - had KUB showing constipation and discharged with Miralax and Zofran. She reports having a BM today with the Miralax. She is concerned about her hernia, it hurts whenever she moves. No fever or chills. MD elicited complaint: abdominal pain Pertinent past history: constipation Onset (ago): day(s) Pain Consistency: constant Location: diffuse Severity: moderate Quality: stabbing Radiation: none Migration to: no migration Exacerbating factors: eating and movement Context: history of similar episodes Associated symptoms: nausea and vomiting PMFSH Past Medical History Medical History Asthma Cerebral palsy Invasive lobular carcinoma of breast in female MDD (major depressive disorder) Prolapse of intestine Family History Family History Father Family history unknown Mother Breast cancer Brother No problems noted. Sister History of leukemia Surgical History Surgical History History of lumpectomy of right breast History of open sigmoidectomy Social History Social History Household Members: None Housing: Apartment Are you a primary career placement services counselor to a significant other at home: No Do you presently have visiting nurse or other home services: No Alcohol intake: former Patient Tobacco Use Status: Never used Tobacco e-Cigarette/Vaping Use: Never Used Advance Directives: Yes Advance Directives on File: Yes Advance Directives Date on File: 10/01/20 service: No Current occupational status: retired Meds Allergies Allergy/AdvReac Type Severity Reaction Status Date / Time No Known Allergies Allergy Verified 06/03/21 09:00 [No Known Allergies*] Active Medications: Current Medications Acetaminophen (Acetaminophen 325 Mg Tablet) 650 mg PO Q6H PRN PRN Reason: Pain, Mild (Pain Scale 1-3) Albuterol Sulfate (Albuterol Sulfate (0.083%) 2.5 Mg/3 Ml Vial.Neb) 2.5 mg INHALE Q4H PRN PRN Reason: Shortness Of Breath Anastrozole (Anastrozole 1 Mg Tablet) 1 mg PO DAILY [facility] Last Admin: 06/19/21 08:57 Dose: 1 mg Documented by: Gabapentin (Gabapentin 300 Mg Capsule) 900 mg PO TID [facility] Last Admin: 06/19/21 15:03 Dose: 900 mg Documented by: Hydromorphone HCl (Hydromorphone Hcl 1 Mg/Ml Syringe) 1 mg IVPUSH Q4H PRN; Protocol PRN Reason: Pain, Severe (Pain Scale 7-10) Dextrose/Lactated Ringer's (D5lr) 1,000 mls @ 125 mls/hr IVCONT .Q8H [facility] Last Admin: 06/19/21 10:30 Dose: 125 mls/hr Documented by: Lisinopril (Lisinopril 20 Mg Tablet) 20 mg PO DAILY [facility]; Protocol Montelukast Sodium (Montelukast Sodium 10 Mg Tablet) 10 mg PO BEDTIME [facility] Ondansetron HCl (Ondansetron Hcl 4 Mg/2 Ml Vial) 4 mg IVPUSH Q8H PRN PRN Reason: Nausea Last Admin: 06/19/21 08:51 Dose: 4 mg Documented by: Pantoprazole Sodium (Pantoprazole Sodium 40 Mg/10 Ml Vial) 40 mg IVPUSH BID@0630,1630 [facility] Last Admin: 06/19/21 17:06 Dose: 40 mg Documented by: Paroxetine HCl (Paroxetine Hcl 20 Mg Tablet) 40 mg PO DAILY [facility] Last Admin: 06/19/21 08:57 Dose: 40 mg Documented by: Paroxetine HCl (Paroxetine Hcl 10 Mg Tablet) 10 mg PO DAILY [facility] Last Admin: 06/19/21 08:57 Dose: 10 mg Documented by: Pharmacy Consult (Consult Rx Perform Med Rec) 1 each MISCELLANE ONCE PRN PRN Reason: Consult order Pharmacy Consult (Consult Rx Perform Med Rec) 1 each MISCELLANE ONCE PRN PRN Reason: Consult order Sodium Chloride (0.9 % Sodium Chloride Flush 3 Ml Syringe) 3 ml IVFLUSH QSHIFT [facility] Last Admin: 06/19/21 15:06 Dose: Not Given Documented by: Zolpidem Tartrate (Zolpidem Tartrate 5 Mg Tablet) 5 mg PO BEDTIME PRN PRN Reason: Insomnia Home Medications Medication Instructions Recorded Confirmed Last Taken Type albuterol sulfate 2.5 mg INHALATION Q4H PRN 11/14/19 06/18/21 Unknown History anastrozole 1 mg tablet (Arimidex) 1 tab PO DAILY 10/22/20 06/18/21 06/18/21 History montelukast 10 mg tablet 10 mg PO BEDTIME 06/18/21 06/18/21 06/17/21 History ondansetron 4 mg disintegrating 1 tab PO Q6-8H PRN 06/18/21 06/18/21 Unknown History tablet sennosides 8.6 mg tablet (Natural 8.6 mg PO BEDTIME PRN 06/18/21 06/18/21 06/18/21 History Senna Laxative) Physical Exam Vital Signs: Vital Signs: Last Vital Signs Temp 98.1 F 06/19/21 14:31 Pulse 87 06/19/21 17:03 Resp 20 06/19/21 17:03 BP 202/124 H 06/19/21 17:03 Pulse Ox 93 06/19/21 17:03 BMI result Body Mass Index 26.8 Results Labs CBC & Chem 7: 06/19/21 04:20 06/19/21 04:20 Labs: Short CBC 06/18/21 06/19/21 Range/Units 16:59 04:20 WBC 8.4 8.7 (4.8-10.8) X10*3/uL Hgb 12.1 12.5 (12.0-16.0) g/dl Hct 38.3 38.8 (37.0-47.0) % Plt Count 273 313 (160-400) X10*3/uL BMP 06/18/21 06/19/21 16:59 04:20 Sodium 138 140 Potassium 3.0 L 3.5 Chloride 105 107 Carbon Dioxide 21 L 21 L BUN 24 H 23 H Creatinine 0.83 0.72 Calcium 9.2 9.2 Liver Function 06/18/21 Range/Units 16:59 Total Bilirubin 0.6 (0.0-1.0) mg/dL Direct Bilirubin 0.3 (0.0-0.5) mg/dL AST 15 (5-31) U/L ALT 18 (0-31) U/L Alkaline Phosphatase 67 D (39-117) U/L Albumin 3.9 (3.5-5.0) g/dL Urine 06/18/21 Range/Units 22:00 Urine Color YELLOW Urine Appearance CLEAR Urine pH 6.0 (5.0-8.0) Ur Specific [place] 1.020 (1.005-1.025) Urine Protein NEG (NEG-TRACE) MG/DL Urine Glucose (UA) NEG (NEG) MG/DL
--- NOTE | 2021-06-19 17:22 | MHC.SHP ---
Pre-Procedural Eval Section A Date of Service: 06/20/21 The patient is an INPATIENT: Yes The History & Physical has been completed within 30 days and I have reviewed it.: Yes Section B Chief Complaint: Colonic Stricture Allergies: Allergies Allergy/AdvReac Type Severity Reaction Status Date / Time No Known Allergies Allergy Verified 06/03/21 09:00 [No Known Allergies*] Plan I have reviewed the history and physical and performed a pertinent physical examination on my patient. No changes have occurred unless specified.
[2021-06-19] MEDS: HYDROmorphone HCl 1 MG/ML SYRINGE IVPUSH ×2 (17:26→22:01)
--- NOTE | 2021-06-19 17:30 | PC.NURSE ---
Provider made aware of patients BP
--- NOTE | 2021-06-19 18:51 | PM.EVENT ---
Event Note Date of Service: 06/19/21 Event Note: GI Consult-Full note dictated Imp: Low colonic obstruction with associated colonic dilatation, abdominal distention, and N/V. Diff dx: Anastomotic stricture. Doubt neoplasm. Rec: Limited colonoscopy with possible balloon dilation of colonic stricture on 06/20. Will prep with enemas on 06/20 AM as she can not have an oral prep. Full consent obtained for this, including risks of bleeding and perforation. Trial of NG tube decompression overnight to see if that gives her any relief. F/U labs in AM. Hold any anticoagulants. D/W patient in detail and she is comfortable with this plan. D/W Dr. Jose. Thanks
[2021-06-19] MEDS: hydrALAZINE HCl 20 MG/ML VIAL 5 MG IVPUSH (18:52)
[2021-06-19] MEDS: Montelukast Sodium 10 MG TABLET PO (21:38)
[2021-06-20] VITALS (13 sets, daily range): BP systolic 111–185; BP diastolic 61–100; PULSE 84–114; RESP 16–22; TEMP 36.2–37.7; O2SAT 94–98
[2021-06-20] MEDS: HYDROmorphone HCl 1 MG/ML SYRINGE IVPUSH ×2 (02:26→07:52)
[2021-06-20] MEDS: Dextrose 5 % and Lactated Ring 1,000 ML 125 ML IVCONT ×3 (02:26→22:09)
--- NOTE | 2021-06-20 05:10 | CONS_ITS ---
DATE OF SERVICE: 06/19/2021 REASON FOR CONSULTATION: Abdominal distention and abnormal CT scan of colon. HISTORY OF PRESENT ILLNESS: This has been obtained from the patient and the medical record. The patient is a 66-year-old female who has underlying cerebral palsy and decreased mobility, who underwent a sigmoid resection and repair of a rectocele in October [address] Jose. This was done for treatment of chronic constipation and the rectal prolapse. She describes that the surgery did give her good relief of the previous constipation. However, over the past few months, she describes some increasing episodes of abdominal distention, abdominal cramps, and constipation. More recently, this has become more significant and prompted her visit to the ER due to some worsening abdominal distention, constipation, and abdominal pain. The patient does describe a negative colonoscopy at least 10 years ago at [facility]. She denies any known family history of colorectal cancer. Over the past few weeks as her abdominal complaints and bowel problems worsened, she did not have any sign of hematochezia nor melena. She has had some nausea and more recent vomiting. She denies any hematemesis nor coffee-grounds emesis. Since admission to the ER, she has continued to have intermittent abdominal pain and vomiting. She denies any chronic heartburn at home, nor any dysphagia. Her appetite has been diminished lately due to the worsening abdominal complaints. MEDICATIONS: At home included albuterol inhaler p.r.n., Arimidex, Iron, gabapentin, ibuprofen, lisinopril, montelukast, omeprazole, Zofran, and Paxil. She has also been on MiraLAX and Senokot. Her medications here in the hospital include acetaminophen, albuterol inhaler, Arimidex, gabapentin, hydralazine, hydromorphone p.r.n., labetalol, lisinopril, montelukast, Zofran, Paxil, and Ambien. PAST MEDICAL HISTORY: Sigmoid resection and repair of rectal prolapse in 2019, as described above. Breast cancer with lumpectomy and radiation treatment. Back surgery. Cerebral palsy. Hypertension. Asthma. Depression. She denies history of HI or stroke. SOCIAL HISTORY: She does not smoke nor use any significant amounts of alcohol. She is a and lives by herself. FAMILY HISTORY: Noncontributory. REVIEW OF SYSTEMS: CONSTITUTIONAL: She has been feeling fairly well, but over the past 2 weeks, she has had a diminished appetite in relation to the abdominal discomfort and constipation. SKIN: No rash. No pruritus. CARDIAC: No chest pain. PULMONARY: No coughing or hemoptysis. GI: As above. PHYSICAL EXAMINATION: GENERAL: The patient is a pleasant, alert, somewhat uncomfortable appearing female. VITAL SIGNS: She has been afebrile. Skin: Warm and dry. Anicteric sclerae. NECK: Supple. CARDIAC: Normal S1, S2. ABDOMEN: Distended, somewhat tympanitic. The abdomen is somewhat soft, but nonetheless distended. There is some mild diffuse tenderness without mass or rebound. LABORATORY DATA: She did have a CT scan describing significant dilatation of the entire colon with an area of some narrowing at what appears to be the probable level of the anastomosis. The radiologist describes a possible mass at this level. There is no evidence of any pneumatosis, nor free air. A moderate hiatal hernia was noted. She does have some kidney stones and hepatic cyst, as well as abdominal wall hernias. White count 8.7, hemoglobin 12.5, and platelets 313,000. Normal electrolytes. BUN 23, creatinine 0.7. Normal LFTs. Albumin 3.9, lipase is 6. IMPRESSION: Given the patient's clinical history and workup, this seems to be most consistent with some type of low-lying obstruction quite possibly at the level of her previous surgical site and anastomosis. At this point given the degree of colonic dilatation and some vomiting, I would recommend a trial of nasogastric tube for decompression overnight. I would start her on IV PPI as well. I will plan for at least a limited colonoscopy tomorrow after some limited cleanout with enemas, as I do not think she can tolerate any type of oral cleanout. If a stricture is noted, I will attempt a balloon dilation as well. Full consent has been obtained from the patient for the colonoscopy and possible balloon dilation, including risks of bleeding and perforation. In the meantime, I would continue supportive care and follow her abdominal exams closely. She will have followup laboratories in the morning as well. She should not be on any blood thinners at this time. I tend to doubt we are dealing with any type of neoplastic process given the clinical history of the surgery there 2 years ago and no sign of neoplasm on the surgical specimen. I suspect this is an anastomotic stricture, possibly related to some ischemia. This has all been discussed with the patient in detail and she is comfortable with this plan. This has been discussed with Dr. Jose as well. Thank you for the consultation. MD VIKY Gurrola/JAEL / [id number] MTDD
[2021-06-20 05:27] LABS: MANUAL DIFF FLAG NO
[2021-06-20 05:35] LABS: Basophils Percent Auto 0.2 % (0-2); Eosinophils Percent Auto 0.1 % (0-4); Hemoglobin 13.4 g/dl (12.0-16.0); Imm Gran Abs Auto 0.04 X10*3/uL (0.00-0.03); Imm Gran Pct Auto 0.5 % (0.0-0.4); Mean Corpuscular HGB Conc 31.9 g/dl (31.0-35.0); Mean Corpuscular Hemoglobin 26.9 pg (27.0-33.0); Mean Corpuscular Volume 84.2 fL (80.0-98.0); Mean Platelet Volume 9.9 fL (9.4-12.3); Monocytes Absolute Auto 1.2 X10*3/uL (0.1-1.2); Monocytes Percent Auto 14.1 % (2-11); Neutrophils Absolute Auto 5.9 x10*3/uL (2.0-8.3); Neutrophils Percent Auto 73.1 % (45-73); Platelet Count 375 X10*3/uL (160-400); Red Blood Count 4.99 X10*6/uL (4.20-5.50); Red Cell Distribution Width 17.3 % (11.0-16.0); White Blood Count 8.1 X10*3/uL (4.8-10.8)
[2021-06-20] MEDS: Pantoprazole Sodium 40 MG/10 ML VIAL IVPUSH ×2 (05:47→17:53)
[2021-06-20 06:09] LABS: Anion Gap 11 (12-20); Blood Urea Nitrogen 30 mg/dL (9-16); Calcium 9.4 mg/dL (8.4-10.2); Carbon Dioxide 24 mmol/L (22-29); Chloride 109 mmol/L (96-108); Creatinine Clr Calc Pharmacy 70.6; Estimated Glomerular Filt Rate > 60; Glucose Fasting 171 mg/dL (60-99); Potassium 3.6 mmol/L (3.3-5.1); Sodium 140 mmol/L (135-145)
[2021-06-20] MEDS: Gabapentin 300 MG CAPSULE 900 MG PO ×3 (07:51→22:03)
[2021-06-20] MEDS: lisinopriL 20 MG TABLET PO (07:52)
[2021-06-20] MEDS: hydrALAZINE HCl 20 MG/ML VIAL 10 MG IVPUSH (07:52)
[2021-06-20] MEDS: PARoxetine HCL 40 MG TABLET PO (07:52)
[2021-06-20] MEDS: Anastrozole 1 MG TABLET PO (07:53)
--- NOTE | 2021-06-20 08:30 | P.PNGS_ITS ---
Subjective Subjective Date of Service: 06/20/21 <Nicole Bravo PA-C - Last Filed: 06/20/21 08:35> 06/20/21 <Manuel Jose MD - Last Filed: 06/20/21 09:02> Interval history: Feels lousy this morning. Pain has not improved with NGT in place but does feel less bloated. Passing minimal flatus. <Nicole Bravo PA-C - Last Filed: 06/20/21 08:35> Physical Exam Vital Signs: Vital Signs: Last Vital Signs Temp 97.2 F 06/20/21 07:17 Pulse 111 H 06/20/21 07:17 Resp 20 06/20/21 07:17 BP 158/100 H 06/20/21 07:55 Pulse Ox 98 06/20/21 07:17 BMI result Body Mass Index 26.9 <Nicole Bravo PA-C - Last Filed: 06/20/21 08:35> Const: General: no acute distress and alert <Nicole Bravo PA-C - Last Filed: 06/20/21 08:35> Orientation/consciousness: patient oriented x3 <Nicole Bravo PA-C - Last Filed: 06/20/21 08:35> HEENT: Other: NGT in place with bilious drainage <Nicole Bravo PA-C - Last Filed: 06/20/21 08:35> Resp: Effort & Inspection: normal respiratory effort <JAVI Ballesteros Last Filed: 06/20/21 08:35> GI: Inspection: Yes distended <Nicole Bravo PA-C - Last Filed: 06/20/21 08:35> Palpation (GI): Soft to palpation, Tenderness to palpation present (GI) (diffusely), no guarding and not rigid <JAVI Ballesteros Last Filed: 06/20/21 08:35> Percussion: Yes tympanic to percussion <JAVI Ballesteros Last Filed: 06/20/21 08:35> Skin: General skin exam: no rashes or lesions noted <JAVI Ballesteros Last Filed: 06/20/21 08:35> Neuro: General: patient oriented x3 <Nicole Bravo PA-C - Last Filed: 06/20/21 08:35> Objective Data Active Medications Acetaminophen (Acetaminophen 325 Mg Tablet) 650 mg PO Q6H PRN PRN Reason: Pain, Mild (Pain Scale 1-3) Albuterol Sulfate (Albuterol Sulfate (0.083%) 2.5 Mg/3 Ml Vial.Neb) 2.5 mg INHALE Q4H PRN PRN Reason: Shortness Of Breath Anastrozole (Anastrozole 1 Mg Tablet) 1 mg PO DAILY [facility] Last Admin: 06/20/21 07:53 Dose: 1 mg Documented by: CARLOTA Gabapentin (Gabapentin 300 Mg Capsule) 900 mg PO TID [facility] Last Admin: 06/20/21 07:51 Dose: 900 mg Documented by: CARLOTA Hydralazine HCl (Hydralazine Hcl 20 Mg/Ml Vial) 10 mg IVPUSH Q6H PRN; Protocol PRN Reason: ELDRE>170/90 Last Admin: 06/20/21 07:52 Dose: 10 mg Documented by: CARLOTA Hydromorphone HCl (Hydromorphone Hcl 1 Mg/Ml Syringe) 1 mg IVPUSH Q4H PRN; Protocol PRN Reason: Pain, Severe (Pain Scale 7-10) Last Admin: 06/20/21 07:52 Dose: 1 mg Documented by: CARLOTA Dextrose/Lactated Ringer's (D5lr) 1,000 mls @ 125 mls/hr IVCONT .Q8H [facility] Last Admin: 06/20/21 02:26 Dose: 125 mls/hr Documented by: FANNY Lisinopril (Lisinopril 20 Mg Tablet) 20 mg PO DAILY [facility]; Protocol Last Admin: 06/20/21 07:52 Dose: 20 mg Documented by: CARLOTA Montelukast Sodium (Montelukast Sodium 10 Mg Tablet) 10 mg PO BEDTIME [facility] Last Admin: 06/19/21 21:38 Dose: 10 mg Documented by: FANNY Ondansetron HCl (Ondansetron Hcl 4 Mg/2 Ml Vial) 4 mg IVPUSH Q8H PRN PRN Reason: Nausea Last Admin: 06/19/21 08:51 Dose: 4 mg Documented by: RM Pantoprazole Sodium (Pantoprazole Sodium 40 Mg/10 Ml Vial) 40 mg IVPUSH BID @0630,1630 [facility] Last Admin: 06/20/21 05:47 Dose: 40 mg Documented by: FANNY Paroxetine HCl (Paroxetine Hcl 10 Mg Tablet) 10 mg PO DAILY [facility] Last Admin: 06/19/21 08:57 Dose: 10 mg Documented by: RM Paroxetine HCl (Paroxetine Hcl 40 Mg Tablet) 40 mg PO DAILY [facility] Last Admin: 06/20/21 07:52 Dose: 40 mg Documented by: CARLOTA Pharmacy Consult (Consult Rx Perform Med Rec) 1 each MISCELLANE ONCE PRN PRN Reason: Consult order Pharmacy Consult (Consult Rx Perform Med Rec) 1 each MISCELLANE ONCE PRN PRN Reason: Consult order Sodium Chloride (0.9 % Sodium Chloride Flush 3 Ml Syringe) 3 ml IVFLUSH QSHIFT [facility] Last Admin: 06/20/21 07:43 Dose: Not Given Documented by: MARIELENA Non-Admin Reason: IV Running Zolpidem Tartrate (Zolpidem Tartrate 5 Mg Tablet) 5 mg PO BEDTIME PRN PRN Reason: Insomnia <Nicole Bravo PA-C - Last Filed: 06/20/21 08:35> Labs CBC & Chem 7: : 06/20/21 05:03 06/20/21 05:03 <Nicole Bravo PA-C - Last Filed: 06/20/21 08:35> Labs: Laboratory Results - last 24 hr 06/20/21 06/20/21 05:03 05:03 MCV 84.2 MCH 26.9 L MCHC 31.9 RDW 17.3 H Plt Count 375 MPV 9.9 Immature Gran % (Auto) 0.5 H Neut % (Auto) 73.1 H Lymph % (Auto) 12.0 L [place] % (Auto) 14.1 H Eos % (Auto) 0.1 Baso % (Auto) 0.2 Lymph # (Auto) 1.0 L [place] # (Auto) 1.2 Eos # (Auto) 0.0 Baso # (Auto) 0.0 Abs Immat Gran (auto) 0.04 H Absolute Neuts (auto) 5.9 Absolute Nucleated RBC 0.000 Nucleated RBC % (auto) 0.0 Anion Gap 11 L Estim Creat Clear Calc 70.6 Estimated GFR > 60 Fasting Glucose 171 H Calcium 9.4 <Nicole Bravo PA-C - Last Filed: 06/20/21 08:35> Procedures Date of Service Date of Service: 06/20/21 <Nicole Bravo PA-C - Last Filed: 06/20/21 08:35> Progress Note: A&P Assessment and plan (1) Colonic stricture: Status: Acute <Nicole Bravo PA-C - Last Filed: 06/20/21 08:35> Plan Patient S/P sigmoid resection with rectopexy for rectal prolapse now without apparent colonic stricture, ?malignancy on imaging. Does not feel much better this morning. Still with severe pain and abd remains distended. VS- BP remains elevated. Cont NGT, NPO status for now. Plan for colonoscopy with dilatation today with Dr. Gillis. Cont pain control, IVF. Hospitalists following for medical management. Appreciate input. <Nicole Bravo PA-C - Last Filed: 06/20/21 08:35> Patient S/P sigmoid resection with rectopexy for rectal prolapse now without apparent colonic stricture, ?malignancy on imaging. Does not feel much better this morning. Still with severe pain and abd remains distended. VS- BP remains elevated. Cont NGT, NPO status for now. Plan for colonoscopy with dilatation today with Dr. Gillis. Cont pain control, IVF. Hospitalists following for medical management. Appreciate input. Agree with the above assessment and plan. Abdomen remains distended but slightly improved with nasogastric decompression. Discussed with Dr. Gillis yesterday. He is planning colonoscopy today. Patient understands and agrees with the plan. Discussed with patient's friend Lizbeth as well. <Manuel Jose MD - Last Filed: 06/20/21 09:02> Time Spent With Patient Time: Total time spent is greater than 50% in coordination of care (as documented) at patient's floor/unit and/or counseling patient: <Nicole Bravo PA-C - Last Filed: 06/20/21 08:35> Quality Stroke Does the patient have a stroke diagnosis?: No <Nicole Bravo PA-C - Last Filed: 06/20/21 08:35> VTE Prior VTE?: No <Nicole Bravo PA-C - Last Filed: 06/20/21 08:35> VTE Risk Level:: Surgical - high <Nicole Bravo PA-C - Last Filed: 06/20/21 08:35> VTE Device Contraindication: N/A - Device Ordered <Nicole Bravo PA-C - Last Filed: 06/20/21 08:35> VTE Drug Contraindication: N/A - Med Ordered <Nicole Bravo PA-C - Last Filed: 06/20/21 08:35>
--- NOTE | 2021-06-20 09:13 | P.PNIM_ITS ---
Subjective Subjective Date of Service: 06/20/21 Interval History: seen and examined this AM placed on NG suction reports it is helping her pain but still feels distended Review of Systems negative except HPI Physical Exam Vital Signs: Vital Signs: Last Vital Signs Temp 97.2 F 06/20/21 07:17 Pulse 111 H 06/20/21 07:17 Resp 20 06/20/21 07:17 BP 158/100 H 06/20/21 07:55 Pulse Ox 98 06/20/21 07:17 BMI result Body Mass Index 26.9 Const: Other: General - no acute distress, appears comfortable Cardiovascular - regular rate and rhythm, S1-S2 Lungs - dim sounds at bases Abdomen - distended; NG with bilious drainage Extremities - no edema bilaterally Neuro - awake and alert, no focal deficits Objective Data Active Medications Albuterol Sulfate (Albuterol Sulfate (0.083%) 2.5 Mg/3 Ml Vial.Neb) 2.5 mg INHALE Q4H PRN PRN Reason: Shortness Of Breath Anastrozole (Anastrozole 1 Mg Tablet) 1 mg PO DAILY [facility] Last Admin: 06/20/21 07:53 Dose: 1 mg Documented by: CARLOTA Gabapentin (Gabapentin 300 Mg Capsule) 900 mg PO TID [facility] Last Admin: 06/20/21 07:51 Dose: 900 mg Documented by: CARLOTA Hydralazine HCl (Hydralazine Hcl 20 Mg/Ml Vial) 10 mg IVPUSH Q6H PRN; Protocol PRN Reason: ELDER>170/90 Last Admin: 06/20/21 07:52 Dose: 10 mg Documented by: CARLOTA Hydromorphone HCl (Hydromorphone Hcl 1 Mg/Ml Syringe) 1 mg IVPUSH Q4H PRN; Protocol PRN Reason: Pain, Severe (Pain Scale 7-10) Last Admin: 06/20/21 07:52 Dose: 1 mg Documented by: CARLOTA Dextrose/Lactated Ringer's (D5lr) 1,000 mls @ 125 mls/hr IVCONT .Q8H [facility] Last Admin: 06/20/21 02:26 Dose: 125 mls/hr Documented by: FANNY Acetaminophen (Ofirmev) 1,000 mg in 100 mls @ 400 mls/hr IV Q6H [facility] Last Admin: 06/20/21 09:07 Dose: 400 mls/hr Documented by: CARLOTA Lisinopril (Lisinopril 20 Mg Tablet) 20 mg PO DAILY [facility]; Protocol Last Admin: 06/20/21 07:52 Dose: 20 mg Documented by: CARLOTA Montelukast Sodium (Montelukast Sodium 10 Mg Tablet) 10 mg PO BEDTIME [facility] Last Admin: 06/19/21 21:38 Dose: 10 mg Documented by: FANNY Ondansetron HCl (Ondansetron Hcl 4 Mg/2 Ml Vial) 4 mg IVPUSH Q8H PRN PRN Reason: Nausea Last Admin: 06/19/21 08:51 Dose: 4 mg Documented by: RM Pantoprazole Sodium (Pantoprazole Sodium 40 Mg/10 Ml Vial) 40 mg IVPUSH BID@0630,1630 [facility] Last Admin: 06/20/21 05:47 Dose: 40 mg Documented by: FANNY Paroxetine HCl (Paroxetine Hcl 10 Mg Tablet) 10 mg PO DAILY [facility] Last Admin: 06/19/21 08:57 Dose: 10 mg Documented by: RM Paroxetine HCl (Paroxetine Hcl 40 Mg Tablet) 40 mg PO DAILY [facility] Last Admin: 06/20/21 07:52 Dose: 40 mg Documented by: CARLOTA Pharmacy Consult (Consult Rx Perform Med Rec) 1 each MISCELLANE ONCE PRN PRN Reason: Consult order Pharmacy Consult (Consult Rx Perform Med Rec) 1 each MISCELLANE ONCE PRN PRN Reason: Consult order Sodium Chloride (0.9 % Sodium Chloride Flush 3 Ml Syringe) 3 ml IVFLUSH QSHIFT [facility] Last Admin: 06/20/21 07:43 Dose: Not Given Documented by: MARIELENA Non-Admin Reason: IV Running Zolpidem Tartrate (Zolpidem Tartrate 5 Mg Tablet) 5 mg PO BEDTIME PRN PRN Reason: Insomnia Labs CBC & Chem 7: 06/20/21 05:03 06/20/21 05:03 Labs: Laboratory Results - last 24 hr 06/20/21 06/20/21 05:03 05:03 MCV 84.2 MCH 26.9 L MCHC 31.9 RDW 17.3 H Plt Count 375 MPV 9.9 Immature Gran % (Auto) 0.5 H Neut % (Auto) 73.1 H Lymph % (Auto) 12.0 L [place] % (Auto) 14.1 H Eos % (Auto) 0.1 Baso % (Auto) 0.2 Lymph # (Auto) 1.0 L [place] # (Auto) 1.2 Eos # (Auto) 0.0 Baso # (Auto) 0.0 Abs Immat Gran (auto) 0.04 H Absolute Neuts (auto) 5.9 Absolute Nucleated RBC 0.000 Nucleated RBC % (auto) 0.0 Anion Gap 11 L Estim Creat Clear Calc 70.6 Estimated GFR > 60 Fasting Glucose 171 H Calcium 9.4 Assessment and Plan (1) HTN (hypertension): Status: Acute Plan 66 yo F with a PMH of HTN, asthma, spastic CP, breast ca, prior sigmoid colectomy who is admitted for large bowel obstruction. Medical consult requested for medical mgmt. 1. Uncontorlled HTN will need to use IV prn for the time being while NG in place -- hydralazine 10mg q6h prn 2. Chronic asthma continue baseline meds 3. Abdominal pain secondary to large bowel obstruction NG in place plan for scope today 4. Spastic CP continue baseline meds Will follow along with you.? Quality Stroke Does the patient have a stroke diagnosis?: No VTE Prior VTE?: No VTE Risk Level:: Surgical - high VTE Device Contraindication: N/A - Device Ordered VTE Drug Contraindication: N/A - Med Ordered
[2021-06-20] MEDS: PARoxetine HCL 10 MG TABLET PO (09:14)
[2021-06-20] MEDS: Sodium Phosphate,Mono-Dibasic 133 ML ENEMA PR (09:57)
--- NOTE | 2021-06-20 16:07 | P.CONAN_ITS ---
[facility] Active Problems Active Problems: All Active Problems (Updated 07/22/20 @ 11:48 by Louise Pinedo MD) Colonic stricture (Acute) Vomiting (Acute) Acute hypokalemia (Acute) Fall (on)(from) sidewalk curb, initial encounter (Acute) Screening for hypothyroidism (Acute) Screening for hypercholesterolemia (Acute) Screening for diabetes mellitus (DM) (Acute) Constipation (Acute) Positive colorectal cancer screening using Cologuard test (Acute) Abdominal pain, epigastric (Acute) Asthma (Acute) Colon cancer screening (Acute) Medicare annual wellness visit, initial (Acute) MDD (major depressive disorder) (Acute) Invasive lobular carcinoma of breast in female (Acute) Gastritis (Acute) Anemia (Acute) UTI (urinary tract infection) (Acute) HTN (hypertension) (Acute) Spastic cerebral palsy, congenital (Acute) Rectal prolapse (Acute) Breast CA (Chronic) History of open sigmoidectomy (Acute) Past Medical History Medical History Asthma Cerebral palsy Invasive lobular carcinoma of breast in female MDD (major depressive disorder) Prolapse of intestine Family History Family History Father Family history unknown Mother Breast cancer Brother No problems noted. Sister History of leukemia Family history of problems with anesthesia: No Surgical History Surgical History History of lumpectomy of right breast History of open sigmoidectomy History of Problems with Anesthesia: No Social History Social History Household Members: None Housing: Apartment Are you a primary childcare center administrator to a significant other at home: No Do you presently have visiting nurse or other home services: Yes Alcohol intake: former Patient Tobacco Use Status: Never used Tobacco e-Cigarette/Vaping Use: Never Used Advance Directives Date on File: 10/01/20 service: No Current occupational status: retired Meds Allergies Allergy/AdvReac Type Severity Reaction Status Date / Time No Known Allergies Allergy Verified 06/03/21 09:00 [No Known Allergies*] Active Medications: Current Medications Albuterol Sulfate (Albuterol Sulfate (0.083%) 2.5 Mg/3 Ml Vial.Neb) 2.5 mg INHALE Q4H PRN PRN Reason: Shortness Of Breath Anastrozole (Anastrozole 1 Mg Tablet) 1 mg PO DAILY [facility] Last Admin: 06/20/21 07:53 Dose: 1 mg Documented by: Gabapentin (Gabapentin 300 Mg Capsule) 900 mg PO TID [facility] Last Admin: 06/20/21 07:51 Dose: 900 mg Documented by: Hydralazine HCl (Hydralazine Hcl 20 Mg/Ml Vial) 10 mg IVPUSH Q6H PRN; Protocol PRN Reason: ELDER>170/90 Last Admin: 06/20/21 07:52 Dose: 10 mg Documented by: Hydromorphone HCl (Hydromorphone Hcl 1 Mg/Ml Syringe) 1 mg IVPUSH Q4H PRN; Protocol PRN Reason: Pain, Severe (Pain Scale 7-10) Last Admin: 06/20/21 07:52 Dose: 1 mg Documented by: Dextrose/Lactated Ringer's (D5lr) 1,000 mls @ 125 mls/hr IVCONT .Q8H [facility] Last Infusion: 06/20/21 14:36 Dose: 0 mls/hr Documented by: Acetaminophen (Ofirmev) 1,000 mg in 100 mls @ 400 mls/hr IV Q6H [facility] Last Infusion: 06/20/21 10:14 Dose: Infused Documented by: Lisinopril (Lisinopril 20 Mg Tablet) 20 mg PO DAILY [facility]; Protocol Last Admin: 06/20/21 07:52 Dose: 20 mg Documented by: Montelukast Sodium (Montelukast Sodium 10 Mg Tablet) 10 mg PO BEDTIME [facility] Last Admin: 06/19/21 21:38 Dose: 10 mg Documented by: Ondansetron HCl (Ondansetron Hcl 4 Mg/2 Ml Vial) 4 mg IVPUSH Q8H PRN PRN Reason: Nausea Last Admin: 06/19/21 08:51 Dose: 4 mg Documented by: Pantoprazole Sodium (Pantoprazole Sodium 40 Mg/10 Ml Vial) 40 mg IVPUSH BID@0630,1630 [facility] Last Admin: 06/20/21 05:47 Dose: 40 mg Documented by: Paroxetine HCl (Paroxetine Hcl 10 Mg Tablet) 10 mg PO DAILY [facility] Last Admin: 06/20/21 09:14 Dose: 10 mg Documented by: Paroxetine HCl (Paroxetine Hcl 40 Mg Tablet) 40 mg PO DAILY [facility] Last Admin: 06/20/21 07:52 Dose: 40 mg Documented by: Pharmacy Consult (Consult Rx Perform Med Rec) 1 each MISCELLANE ONCE PRN PRN Reason: Consult order Pharmacy Consult (Consult Rx Perform Med Rec) 1 each MISCELLANE ONCE PRN PRN Reason: Consult order Sodium Chloride (0.9 % Sodium Chloride Flush 3 Ml Syringe) 3 ml IVFLUSH QSHIFT [facility] Last Admin: 06/20/21 07:43 Dose: Not Given Documented by: Zolpidem Tartrate (Zolpidem Tartrate 5 Mg Tablet) 5 mg PO BEDTIME PRN PRN Reason: Insomnia Home Medications Medication Instructions Recorded Confirmed Last Taken Type albuterol sulfate 2.5 mg INHALATION Q4H PRN 11/14/19 06/18/21 Unknown History anastrozole 1 mg tablet (Arimidex) 1 tab PO DAILY 10/22/20 06/18/21 06/18/21 History montelukast 10 mg tablet 10 mg PO BEDTIME 06/18/21 06/18/21 06/17/21 History ondansetron 4 mg disintegrating 1 tab PO Q6-8H PRN 06/18/21 06/18/21 Unknown History tablet sennosides 8.6 mg tablet (Natural 8.6 mg PO BEDTIME PRN 06/18/21 06/18/21 06/18/21 History Senna Laxative) Exam Exam Date and Time: June 20, 2021 1607 Height,Weight and Vital Signs: Height 5 ft 3 in Weight 68.9 kg Last Vital Signs Temp 98.1 F 06/20/21 12:00 Pulse 114 H 06/20/21 12:00 Resp 22 H 06/20/21 12:00 BP 138/88 06/20/21 12:00 Pulse Ox 97 06/20/21 12:00 Pertinent Lab Results Pertinent Lab Results: Laboratory Tests 06/18/21 06/18/21 06/18/21 16:59 16:59 16:59 WBC 8.4 RBC 4.60 Hgb 12.1 Hct 38.3 MCV 83.3 MCH 26.3 L MCHC 31.6 RDW 16.7 H Plt Count 273 MPV 9.4 Immature Gran % (Auto) 0.5 H Neut % (Auto) 76.0 H Lymph % (Auto) 11.4 L [place] % (Auto) 11.8 H Eos % (Auto) 0.1 Baso % (Auto) 0.2 Lymph # (Auto) 1.0 L [place] # (Auto) 1.0 Eos # (Auto) 0.0 Baso # (Auto) 0.0 Abs Immat Gran (auto) 0.04 H Absolute Neuts (auto) 6.4 Absolute Nucleated RBC 0.000 Nucleated RBC % (auto) 0.0 Sodium 138 Potassium 3.0 L Chloride 105 Carbon Dioxide 21 L Anion Gap 15 BUN 24 H Creatinine 0.83 Estim Creat Clear Calc 61.1 Estimated GFR > 60 Random Glucose 133 H Fasting Glucose Lactic Acid 0.7 Calcium 9.2 Magnesium 1.9 Total Bilirubin 0.6 Direct Bilirubin 0.3 AST 15 ALT 18 Alkaline Phosphatase 67 D Total Protein 6.2 L Albumin 3.9 Lipase 6 L Urine Color Urine Appearance Urine pH Ur Specific [place] Urine Protein Urine Glucose (UA) Urine Ketones Urine Blood Urine Nitrite Ur Leukocyte Esterase Urine RBC Urine WBC Ur Squamous Epith Cells Calcium Oxalate Crystal Amorphous Sediment Urine Bacteria Urine Mucus COVID-19 (CHARLEY) COVID-19 Clin Com Influenza Type A (JOSE) Influenza Type B (JOSE) Influenza A & B Note 06/18/21 06/18/21 06/18/21 16:59 16:59 22:00 WBC RBC Hgb Hct MCV MCH MCHC RDW Plt Count MPV Immature Gran % (Auto) Neut % (Auto) Lymph % (Auto) [place] % (Auto) Eos % (Auto) Baso % (Auto) Lymph # (Auto) [place] # (Auto) Eos # (Auto) Baso # (Auto) Abs Immat Gran (auto) Absolute Neuts (auto) Absolute Nucleated RBC Nucleated RBC % (auto) Sodium Potassium Chloride Carbon Dioxide Anion Gap BUN Creatinine Estim Creat Clear Calc Estimated GFR Random Glucose Fasting Glucose Lactic Acid Calcium Magnesium Total Bilirubin Direct Bilirubin AST ALT Alkaline Phosphatase Total Protein Albumin Lipase Urine Color YELLOW Urine Appearance CLEAR Urine pH 6.0 Ur Specific [place] 1.020 Urine Protein NEG Urine Glucose (UA) NEG Urine Ketones 40 Urine Blood 2+ H Urine Nitrite NEG Ur Leukocyte Esterase TRACE H Urine RBC 10-14 H Urine WBC 1-4 Ur Squamous Epith Cells 2+ Calcium Oxalate Crystal 4+ Amorphous Sediment 3+ Urine Bacteria 3+ Urine Mucus TRACE COVID-19 (CHARLEY) Negative COVID-19 Clin Com See Note Influenza Type A (JOSE) Negative Influenza Type B (JOSE) Negative Influenza A & B Note See Note 06/19/21 06/19/21 06/20/21 04:20 04:20 05:03 WBC 8.7 8.1 RBC 4.69 4.99 Hgb 12.5 13.4 Hct 38.8 42.0 MCV 82.7 84.2 MCH 26.7 L 26.9 L MCHC 32.2 31.9 RDW 16.8 H 17.3 H Plt Count 313 375 MPV 9.9 9.9 Immature Gran % (Auto) 0.3 0.5 H Neut % (Auto) 73.5 H 73.1 H Lymph % (Auto) 13.2 L 12.0 L [place] % (Auto) 12.7 H 14.1 H Eos % (Auto) 0.1 0.1 Baso % (Auto) 0.2 0.2 Lymph # (Auto) 1.2 1.0 L [place] # (Auto) 1.1 1.2 Eos # (Auto) 0.0 0.0 Baso # (Auto) 0.0 0.0 Abs Immat Gran (auto) 0.03 0.04 H Absolute Neuts (auto) 6.4 5.9 Absolute Nucleated RBC 0.000 0.000 Nucleated RBC % (auto) 0.0 0.0 Sodium 140 Potassium 3.5 Chloride 107 Carbon Dioxide 21 L Anion Gap 16 BUN 23 H Creatinine 0.72 Estim Creat Clear Calc 70.5 Estimated GFR > 60 Random Glucose 150 H Fasting Glucose Lactic Acid Calcium 9.2 Magnesium Total Bilirubin Direct Bilirubin AST ALT Alkaline Phosphatase Total Protein Albumin Lipase Urine Color Urine Appearance Urine pH Ur Specific [place] Urine Protein Urine Glucose (UA) Urine Ketones Urine Blood Urine Nitrite Ur Leukocyte Esterase Urine RBC Urine WBC Ur Squamous Epith Cells Calcium Oxalate Crystal Amorphous Sediment Urine Bacteria Urine Mucus COVID-19 (CHARLEY) COVID-19 Clin Com Influenza Type A (JOSE) Influenza Type B (JOSE) Influenza A & B Note 06/20/21 05:03 WBC RBC Hgb Hct MCV MCH MCHC RDW Plt Count MPV Immature Gran % (Auto) Neut % (Auto) Lymph % (Auto) [place] % (Auto) Eos % (Auto) Baso % (Auto) Lymph # (Auto) [place] # (Auto) Eos # (Auto) Baso # (Auto) Abs Immat Gran (auto) Absolute Neuts (auto) Absolute Nucleated RBC Nucleated RBC % (auto) Sodium 140 Potassium 3.6 Chloride 109 H Carbon Dioxide 24 Anion Gap 11 L BUN 30 H Creatinine 0.72 Estim Creat Clear Calc 70.6 Estimated GFR > 60 Random Glucose Fasting Glucose 171 H Lactic Acid Calcium 9.4 Magnesium Total Bilirubin Direct Bilirubin AST ALT Alkaline Phosphatase Total Protein Albumin Lipase Urine Color Urine Appearance Urine pH Ur Specific [place] Urine Protein Urine Glucose (UA) Urine Ketones Urine Blood Urine Nitrite Ur Leukocyte Esterase Urine RBC Urine WBC Ur Squamous Epith Cells Calcium Oxalate Crystal Amorphous Sediment Urine Bacteria Urine Mucus COVID-19 (CHARLEY) COVID-19 Clin Com Influenza Type A (JOSE) Influenza Type B (JOSE) Influenza A & B Note Airway Mallampati Class: II TM Dist: >3cm Neck ROM: Full Assessment and Plan Assessment Anesthesia Assessment: Anesthesia Plan Discussed and Chart Reviewed Final Anesthetic Review Family History of Problems with Anesthesia: No History of Problems with Anesthesia: No NPO: Yes ASA Class: III Final Preanesthetic Review: No Changes in Pt Med Stat, Meds/Allgs Chart Reviewed, Consent Obtained/Reviewed and Anes Risks/Benef Reviewed Patient Risk: Intermediate Procedure Risk: Low Anesthetic Plan Anesthetic Plan: MAC: Disposition: Standard PACU
--- NOTE | 2021-06-20 17:11 | PM.OP ---
Brief Operative Note Date of Service: 06/20/21 Pre-op diagnosis: Colonic obstruction Post-op diagnosis: other (Anastomotic stricture) Procedure: Colonoscopy to approx 15cm with Balloon dilation of anastomotic stricture Surgeon: Tin Gillis Anesthesia: MAC Was an Coordinator Sk[employer] Training Program used for this Procedure?: No Estimated blood loss (mL): 2.0 Pathology: none sent Condition: stable Disposition: PACU
--- NOTE | 2021-06-20 17:12 | PM.EVENT ---
Event Note Date of Service: 06/20/21 Event Note: GI-Full note dictated Colonoscopy to approx 12 cm 1. Previous anastomosis noted at approx 10cm with very small opening c/w a stricture, but no mass nor ulceration. Could not advance past this nor really see beyond it. 2. Dilated the stricture from 8mm to 10mm and then 12mm to 13.5mm with good effect. The stricture was clearly disrupted and more patent with some heme noted. I was able to see dilated colon proximal to the anastomosis. 3. Some inflammatory changes/ulceration noted on the proximal edge of the anastomosis. 4. I could not pass the scope beyond the stricture despite the opening being much more patent. There was some looping of the scope which impeded getting past the anastomosis as well. 5. A large amount of air and liquid stool was passed from the patient after the dilation and her abdomen did become softer. 6. Limited visualization of the rectal mucosa appeared normal. 7. I did not dilate the stricture beyond the 13.5mm balloon given the distuption and friablity of the stricture after the 13.5 mm balloon. Rec: Observe, start clear liqs, F/U labs, can probably D/C the NG tube, start some Miralax to see if that can facilitate some cleanout of all the old stool above the anastomosis. Depending upon her course I would recommend a repeat colonoscopy with possible further balloon dilation in 1-2 weeks. If we are unable to keep the anastomosis patent for any significant lenggth of time she may need an eventual colostomy. D/W Dr. Jose. Thanks.
[2021-06-20] MEDS: 0.9 % Sodium Chloride Flush 3 ML SYRINGE IVFLUSH ×2 (17:55→20:17)
[2021-06-20] MEDS: ondansetron HCL 4 MG/2 ML VIAL IVPUSH (20:17)
[2021-06-20] MEDS: Montelukast Sodium 10 MG TABLET PO (20:17)
[2021-06-20] MEDS: Albuterol Sulfate (0.083%) 2.5 MG/3 ML VIAL.NEB INHALE (20:35)
[2021-06-21] VITALS (9 sets, daily range): BP systolic 148–185; BP diastolic 70–98; PULSE 75–107; RESP 16–18; TEMP 36.3–37.2; O2SAT 93–97
--- NOTE | 2021-06-21 02:34 | OP_ITS ---
SURGEON: Tin Gillis MD INDICATIONS: The patient presents for evaluation of colonic obstruction and suspicion for anastomotic stricture. Full consent was obtained for this, including risks of bleeding and perforation. PREOPERATIVE DIAGNOSIS: POSTOPERATIVE DIAGNOSIS: PROCEDURE PERFORMED: ESTIMATED BLOOD LOSS: COMPLICATIONS: ANESTHESIA: Monitored anesthesia care. ASSISTANTS: SPECIMENS: POSTOPERATIVE DIAGNOSES: The patient presents for evaluation of colonic obstruction and anastomotic stricture, external hemorrhoids. PROCEDURES PERFORMED: Limited colonoscopy to approximately 15 cm with balloon dilation of anastomotic stricture. DESCRIPTION OF PROCEDURE: The patient was placed in the left lateral decubitus position. The digital rectal exam revealed external hemorrhoids. There was no palpable mass. The Olympus video pediatric colonoscope was entered into the rectum. There was a fair amount of liquid stool, which was irrigated and suctioned away as best as possible. I was able to visualize the anastomosis at approximately 12-15 cm. This was quite tight and did not allow passage of the scope and really would not allow any visualization of the more proximal lumen. There was no sign of any ulceration or mass. I initially used a [employer] incremental balloon to dilate the stricture from 8 mm to 10 mm at the recommended pressure for 60 seconds each. Post-dilation, there was clearly some improvement in the patency, but clearly not large enough to allow us to pass the scope. There was no bleeding. I then used a [employer] incremental balloon to dilate the stricture further from 12 mm to 13.5 mm at the recommended pressure for 60 seconds each. After inspection of the stricture at that point, it was clearly more patent, although still would not allow passage of the scope at least in part due to some looping of the scope in the rectum. The anastomotic lumen was definitely more open. I could now see some ulcerations on the proximal edges of the anastomosis. I could see into the more proximal bowel, which was dilated and filled with liquid stool. The stricture itself was definitely disrupted with some mucosal tearing and heme noted. Therefore, I did not perform any further dilation. The scope was withdrawn from the patient. She tolerated the procedure well and was returned to recovery area in stable condition. Of note, she did pass a large amount of soft and liquid stool, as well as flatus, after the procedure. IMPRESSION: Anastomotic stricture, status post balloon dilation. PLAN: The patient will continue to be observed in the hospital. Of note she did pass a large amount of air and liquid stool after the procedure. Her abdominal exam did improve and was softer, although it was still distended At this point, I would start her on a liquid diet, clamp the NG tube and start her on some MiraLAX. Depending upon her clinical course, we may definitely want to repeat the procedure with further balloon dilation in the next couple of weeks. If she continues to have problems with stricture formation at the anastomosis, she may eventually need a colostomy for definitive treatment. MD VIKY Gurrola/JAEL / [phone] MTDD
[2021-06-21] MEDS: Albuterol Sulfate (0.083%) 2.5 MG/3 ML VIAL.NEB INHALE (04:02)
[2021-06-21] MEDS: hydrALAZINE HCl 20 MG/ML VIAL 10 MG IVPUSH (04:16)
--- NOTE | 2021-06-21 04:22 | PC.NURSE ---
BP-185/90 HR-90 medicated with hydralazine 10mg IV at 0415.will continue to monitor.
[2021-06-21] MEDS: Pantoprazole Sodium 40 MG/10 ML VIAL IVPUSH ×2 (05:33→15:32)
[2021-06-21 06:11] LABS: MANUAL DIFF FLAG NO
[2021-06-21 06:17] LABS: Basophils Percent Auto 0.6 % (0-2); Eosinophils Percent Auto 0.6 % (0-4); Hematocrit 38.5 % (37.0-47.0); Hemoglobin 12.4 g/dl (12.0-16.0); Imm Gran Abs Auto 0.01 X10*3/uL (0.00-0.03); Imm Gran Pct Auto 0.2 % (0.0-0.4); Lymphocytes Percent Auto 18.6 % (20-40); Mean Corpuscular HGB Conc 32.2 g/dl (31.0-35.0); Mean Corpuscular Hemoglobin 27.1 pg (27.0-33.0); Mean Corpuscular Volume 84.2 fL (80.0-98.0); Monocytes Absolute Auto 1.1 X10*3/uL (0.1-1.2); Monocytes Percent Auto 19.7 % (2-11); Neutrophils Absolute Auto 3.3 x10*3/uL (2.0-8.3); Neutrophils Percent Auto 60.3 % (45-73); Platelet Count 348 X10*3/uL (160-400); Red Blood Count 4.57 X10*6/uL (4.20-5.50); Red Cell Distribution Width 17.3 % (11.0-16.0); White Blood Count 5.4 X10*3/uL (4.8-10.8)
[2021-06-21] MEDS: Dextrose 5 % and Lactated Ring 1,000 ML 125 ML IVCONT ×2 (06:27→22:41)
[2021-06-21 06:39] LABS: Anion Gap 13 (12-20); Blood Urea Nitrogen 33 mg/dL (9-16); Calcium 8.8 mg/dL (8.4-10.2); Carbon Dioxide 22 mmol/L (22-29); Chloride 107 mmol/L (96-108); Creatinine Clr Calc Pharmacy 62.7; Estimated Glomerular Filt Rate > 60; Glucose Fasting 157 mg/dL (60-99); Sodium 139 mmol/L (135-145)
--- NOTE | 2021-06-21 07:45 | P.PNGS_ITS ---
Subjective Subjective Date of Service: 06/21/21 Interval history: Patient reports liquid bowel movement and passing flatus reports decreased abdominal pain and distension. Did get nauseous with clear liquids. Physical Exam Vital Signs: Vital Signs: Last Vital Signs Temp 97.4 F 06/21/21 03:57 Pulse 107 H 06/21/21 06:00 Resp 18 06/21/21 04:02 BP 173/94 H 06/21/21 06:00 Pulse Ox 96 06/21/21 03:57 BMI result Body Mass Index 26.9 Const: General: alert and awake Nutritional Appearance: well nourished Orientation/consciousness: patient oriented x3 Limitations: no limitations Resp: Effort & Inspection: normal respiratory effort GI: Other: Still distended but much improved from Yesterday. Abdomen is non tympanitic. No tenderness to palpation. Skin: Other: Warm, dry, no rash Neuro: General: patient oriented x3 Extrem: Other: no edema Objective Data Active Medications Albuterol Sulfate (Albuterol Sulfate (0.083%) 2.5 Mg/3 Ml Vial.Neb) 2.5 mg INHALE Q4H PRN PRN Reason: Shortness Of Breath Last Admin: 06/21/21 04:02 Dose: 2.5 mg Documented by: ARELIS Anastrozole (Anastrozole 1 Mg Tablet) 1 mg PO DAILY [facility] Last Admin: 06/20/21 07:53 Dose: 1 mg Documented by: CARLOTA Gabapentin (Gabapentin 300 Mg Capsule) 900 mg PO TID [facility] Last Admin: 06/20/21 22:03 Dose: 900 mg Documented by: BABAR Hydralazine HCl (Hydralazine Hcl 20 Mg/Ml Vial) 10 mg IVPUSH Q6H PRN; Protocol PRN Reason: ELDER>170/90 Last Admin: 06/21/21 04:16 Dose: 10 mg Documented by: BABAR Hydromorphone HCl (Hydromorphone Hcl 1 Mg/Ml Syringe) 1 mg IVPUSH Q4H PRN; Protocol PRN Reason: Pain, Severe (Pain Scale 7-10) Last Admin: 06/20/21 07:52 Dose: 1 mg Documented by: CARLOTA Dextrose/Lactated Ringer's (D5lr) 1,000 mls @ 125 mls/hr IVCONT .Q8H [facility] Last Admin: 06/21/21 06:27 Dose: 125 mls/hr Documented by: BABAR Acetaminophen (Ofirmev) 1,000 mg in 100 mls @ 400 mls/hr IV Q6H [facility] Last Admin: 06/21/21 04:08 Dose: Not Given Documented by: BABAR Non-Admin Reason: off schedule Lisinopril (Lisinopril 20 Mg Tablet) 20 mg PO DAILY [facility]; Protocol Last Admin: 06/20/21 07:52 Dose: 20 mg Documented by: CARLOTA Montelukast Sodium (Montelukast Sodium 10 Mg Tablet) 10 mg PO BEDTIME [facility] Last Admin: 06/20/21 20:17 Dose: 10 mg Documented by: BABAR Ondansetron HCl (Ondansetron Hcl 4 Mg/2 Ml Vial) 4 mg IVPUSH Q8H PRN PRN Reason: Nausea Last Admin: 06/20/21 20:17 Dose: 4 mg Documented by: BABAR Pantoprazole Sodium (Pantoprazole Sodium 40 Mg/10 Ml Vial) 40 mg IVPUSH BID@0630,1630 [facility] Last Admin: 06/21/21 05:33 Dose: 40 mg Documented by: BABAR Paroxetine HCl (Paroxetine Hcl 10 Mg Tablet) 10 mg PO DAILY [facility] Last Admin: 06/20/21 09:14 Dose: 10 mg Documented by: CARLOTA Paroxetine HCl (Paroxetine Hcl 40 Mg Tablet) 40 mg PO DAILY [facility] Last Admin: 06/20/21 07:52 Dose: 40 mg Documented by: CARLOTA Pharmacy Consult (Consult Rx Perform Med Rec) 1 each MISCELLANE ONCE PRN PRN Reason: Consult order Pharmacy Consult (Consult Rx Perform Med Rec) 1 each MISCELLANE ONCE PRN PRN Reason: Consult order Polyethylene Glycol (Polyethylene Glycol 3350 17 Gm Powd.Pack) 17 gm PO BID [facility] Last Admin: 06/20/21 22:06 Dose: Not Given Documented by: BABAR Non-Admin Reason: Nausea Sodium Chloride (0.9 % Sodium Chloride Flush 3 Ml Syringe) 3 ml IVFLUSH QSHIFT [facility] Last Admin: 06/20/21 20:17 Dose: 3 ml Documented by: BABAR Zolpidem Tartrate (Zolpidem Tartrate 5 Mg Tablet) 5 mg PO BEDTIME PRN PRN Reason: Insomnia Labs CBC & Chem 7: 06/21/21 05:37 06/21/21 05:37 Labs: Laboratory Results - last 24 hr 06/21/21 06/21/21 05:37 05:37 MCV 84.2 MCH 27.1 MCHC 32.2 RDW 17.3 H Plt Count 348 MPV 10.0 Immature Gran % (Auto) 0.2 Neut % (Auto) 60.3 Lymph % (Auto) 18.6 L [place] % (Auto) 19.7 H Eos % (Auto) 0.6 Baso % (Auto) 0.6 Lymph # (Auto) 1.0 L [place] # (Auto) 1.1 Eos # (Auto) 0.0 Baso # (Auto) 0.0 Abs Immat Gran (auto) 0.01 Absolute Neuts (auto) 3.3 Absolute Nucleated RBC 0.000 Nucleated RBC % (auto) 0.0 Anion Gap 13 Estim Creat Clear Calc 62.7 Estimated GFR > 60 Fasting Glucose 157 H Calcium 8.8 D Microbiology Microbiology Results: Microbiology 06/19/21 Unknown Urine Culture - Final Urine clean catch - Urine duval top Procedures Date of Service Date of Service: 06/21/21 Progress Note: A&P Assessment and plan (1) Colonic stricture: Status: Acute Plan pod 1 following colonoscopy with balloon dilation of colonic stricture. Patient is producing liquid stool and flatus today and her abdominal exam is much improved. She did get nauseous with clear liquids therefore I will keep her on liquids for now. Patient is concerned about her weakness is requesting physical therapy to assist with ambulation. Will continue to monitor her abdominal examination. Time Spent With Patient Time: Total time spent is greater than 50% in coordination of care (as documented) at patient's floor/unit and/or counseling patient: Quality Stroke Does the patient have a stroke diagnosis?: No VTE Prior VTE?: No VTE Risk Level:: Surgical - high VTE Device Contraindication: N/A - Device Ordered VTE Drug Contraindication: N/A - Med Ordered
[2021-06-21] MEDS: 0.9 % Sodium Chloride Flush 3 ML SYRINGE IVFLUSH ×3 (09:43→20:10)
[2021-06-21] MEDS: ondansetron HCL 4 MG/2 ML VIAL IVPUSH (09:44)
[2021-06-21] MEDS: Gabapentin 300 MG CAPSULE 900 MG PO ×2 (15:41→19:47)
[2021-06-21] MEDS: Montelukast Sodium 10 MG TABLET PO (19:47)
--- NOTE | 2021-06-21 22:22 | HO.PM.IMPN ---
Subjective Subjective Date of Service: 06/21/21 Interval History: f/u med management s/p coloscopy with colonic narrowing dilatation, NGT remains in place and is NPO, complaint of thirst and wnater or ice chips, has iv fluid going Review of Systems no abdominal no nausea or voming Physical Exam Vital Signs: Vital Signs: Last Vital Signs Temp 97.7 F 06/21/21 20:00 Pulse 97 06/21/21 20:00 Resp 17 06/21/21 20:00 BP 148/87 H 06/21/21 20:00 Pulse Ox 97 06/21/21 20:00 BMI result Body Mass Index 26.9 Const: Other: General - no acute distress, appears comfortable Cardiovascular - regular rate and rhythm, S1-S2 Lungs - dim sounds at bases Abdomen - distended; NG with bilious drainage Extremities - no edema bilaterally Neuro - awake and alert, no focal deficits Objective Data Active Medications Albuterol Sulfate (Albuterol Sulfate (0.083%) 2.5 Mg/3 Ml Vial.Neb) 2.5 mg INHALE Q4H PRN PRN Reason: Shortness Of Breath Last Admin: 06/21/21 04:02 Dose: 2.5 mg Documented by: ARELIS Anastrozole (Anastrozole 1 Mg Tablet) 1 mg PO DAILY [facility] Last Admin: 06/21/21 11:26 Dose: Not Given Documented by: THOMAS Non-Admin Reason: Nausea Comments: Pt vomitting, made aware, placing NGT Gabapentin (Gabapentin 300 Mg Capsule) 900 mg PO TID [facility] Last Admin: 06/21/21 19:47 Dose: 900 mg Documented by: BIN Hydralazine HCl (Hydralazine Hcl 20 Mg/Ml Vial) 10 mg IVPUSH Q6H PRN; Protocol PRN Reason: ELDER>170/90 Last Admin: 06/21/21 04:16 Dose: 10 mg Documented by: BABAR Hydromorphone HCl (Hydromorphone Hcl 1 Mg/Ml Syringe) 1 mg IVPUSH Q4H PRN; Protocol PRN Reason: Pain, Severe (Pain Scale 7-10) Last Admin: 06/20/21 07:52 Dose: 1 mg Documented by: CARLOTA Dextrose/Lactated Ringer's (D5lr) 1,000 mls @ 125 mls/hr IVCONT .Q8H [facility] Last Infusion: 06/21/21 15:04 Dose: 125 mls/hr Documented by: THOMAS Acetaminophen (Ofirmev) 1,000 mg in 100 mls @ 400 mls/hr IV Q6H [facility] Last Infusion: 06/21/21 20:14 Dose: 0 mls/hr Documented by: BIN Lisinopril (Lisinopril 20 Mg Tablet) 20 mg PO DAILY [facility]; Protocol Last Admin: 06/21/21 11:26 Dose: Not Given Documented by: THOMAS Non-Admin Reason: Nausea Montelukast Sodium (Montelukast Sodium 10 Mg Tablet) 10 mg PO BEDTIME [facility] Last Admin: 06/21/21 19:47 Dose: 10 mg Documented by: BIN Ondansetron HCl (Ondansetron Hcl 4 Mg/2 Ml Vial) 4 mg IVPUSH Q8H PRN PRN Reason: Nausea Last Admin: 06/21/21 09:44 Dose: 4 mg Documented by: THOMAS Pantoprazole Sodium (Pantoprazole Sodium 40 Mg/10 Ml Vial) 40 mg IVPUSH BID@0630,1630 [facility] Last Admin: 06/21/21 15:32 Dose: 40 mg Documented by: THOMAS Paroxetine HCl (Paroxetine Hcl 10 Mg Tablet) 10 mg PO DAILY [facility] Last Admin: 06/21/21 11:27 Dose: Not Given Documented by: THOMAS Non-Admin Reason: Nausea Paroxetine HCl (Paroxetine Hcl 40 Mg Tablet) 40 mg PO DAILY [facility] Last Admin: 06/21/21 11:27 Dose: Not Given Documented by: THOMAS Non-Admin Reason: Nausea Pharmacy Consult (Consult Rx Perform Med Rec) 1 each MISCELLANE ONCE PRN PRN Reason: Consult order Pharmacy Consult (Consult Rx Perform Med Rec) 1 each MISCELLANE ONCE PRN PRN Reason: Consult order Polyethylene Glycol (Polyethylene Glycol 3350 17 Gm Powd.Pack) 17 gm PO BID [facility] Last Admin: 06/21/21 20:10 Dose: Not Given Documented by: BIN Non-Admin Reason: Patient Refused Sodium Chloride (0.9 % Sodium Chloride Flush 3 Ml Syringe) 3 ml IVFLUSH QSHIFT [facility] Last Admin: 06/21/21 20:10 Dose: 3 ml Documented by: BIN Zolpidem Tartrate (Zolpidem Tartrate 5 Mg Tablet) 5 mg PO BEDTIME PRN PRN Reason: Insomnia Labs CBC & Chem 7: 06/21/21 05:37 06/21/21 05:37 Labs: Laboratory Results - last 24 hr 06/21/21 06/21/21 05:37 05:37 MCV 84.2 MCH 27.1 MCHC 32.2 RDW 17.3 H Plt Count 348 MPV 10.0 Immature Gran % (Auto) 0.2 Neut % (Auto) 60.3 Lymph % (Auto) 18.6 L [place] % (Auto) 19.7 H Eos % (Auto) 0.6 Baso % (Auto) 0.6 Lymph # (Auto) 1.0 L [place] # (Auto) 1.1 Eos # (Auto) 0.0 Baso # (Auto) 0.0 Abs Immat Gran (auto) 0.01 Absolute Neuts (auto) 3.3 Absolute Nucleated RBC 0.000 Nucleated RBC % (auto) 0.0 Anion Gap 13 Estim Creat Clear Calc 62.7 Estimated GFR > 60 Fasting Glucose 157 H Calcium 8.8 D Assessment and Plan (1) HTN (hypertension): Status: Acute Plan 66 yo F with a PMH of HTN, asthma, spastic CP, breast ca, prior sigmoid colectomy who is admitted for large bowel obstruction. Medical consult requested for medical mgmt. 1. Uncontorlled HTN will need to use IV prn for the time being while NG in place -- hydralazine 10mg q6h prn 2. Chronic asthma continue baseline meds 3. Abdominal pain secondary to large bowel obstruction s/p colonic dilation, ng in place further mangement by surgery 4. Spastic CP continue baseline meds Will follow along with you.? hold oral meds until bowel function adequately returns Quality Stroke Does the patient have a stroke diagnosis?: No VTE Prior VTE?: No VTE Risk Level:: Surgical - high VTE Device Contraindication: N/A - Device Ordered VTE Drug Contraindication: N/A - Med Ordered
[2021-06-21] MEDS: Zolpidem Tartrate 5 MG TABLET PO (22:25)
[2021-06-22 03:55] VITALS: BP 150/62; PULSE 70; RESP 17; TEMP 36.3; O2SAT 96
[2021-06-22] MEDS: Pantoprazole Sodium 40 MG/10 ML VIAL IVPUSH ×2 (05:31→16:19)
[2021-06-22 08:00] VITALS: BP 150/110; PULSE 93; RESP 17; TEMP 37.3; O2SAT 93
--- NOTE | 2021-06-22 09:20 | HO.PM.IMPN ---
Subjective Subjective Date of Service: 06/22/21 Interval History: Seen in f/u for med management, doing better and started on liquid diet, NGT remains in place Review of Systems no abdominal no nausea or voming Physical Exam Vital Signs: Vital Signs: Last Vital Signs Temp 97.4 F 06/22/21 03:55 Pulse 70 06/22/21 03:55 Resp 17 06/22/21 03:55 BP 150/62 H 06/22/21 03:55 Pulse Ox 96 06/22/21 03:55 BMI result Body Mass Index 26.9 Const: Other: General - no acute distress, appears comfortable Cardiovascular - regular rate and rhythm, S1-S2 Lungs - dim sounds at bases Abdomen - distended; NG with bilious drainage Extremities - no edema bilaterally Neuro - awake and alert, no focal deficits Objective Data Active Medications Albuterol Sulfate (Albuterol Sulfate (0.083%) 2.5 Mg/3 Ml Vial.Neb) 2.5 mg INHALE Q4H PRN PRN Reason: Shortness Of Breath Last Admin: 06/21/21 04:02 Dose: 2.5 mg Documented by: ARELIS Anastrozole (Anastrozole 1 Mg Tablet) 1 mg PO DAILY [facility] Last Admin: 06/21/21 11:26 Dose: Not Given Documented by: THOMAS Non-Admin Reason: Nausea Comments: Pt vomitting, MD made aware, placing NGT Gabapentin (Gabapentin 300 Mg Capsule) 900 mg PO TID [facility] Last Admin: 06/21/21 19:47 Dose: 900 mg Documented by: BIN Hydralazine HCl (Hydralazine Hcl 20 Mg/Ml Vial) 10 mg IVPUSH Q6H PRN; Protocol PRN Reason: ELDER>170/90 Last Admin: 06/21/21 04:16 Dose: 10 mg Documented by: BABAR Hydromorphone HCl (Hydromorphone Hcl 1 Mg/Ml Syringe) 1 mg IVPUSH Q4H PRN; Protocol PRN Reason: Pain, Severe (Pain Scale 7-10) Last Admin: 06/20/21 07:52 Dose: 1 mg Documented by: CARLOTA Dextrose/Lactated Ringer's (D5lr) 1,000 mls @ 125 mls/hr IVCONT .Q8H [facility] Last Admin: 06/21/21 22:41 Dose: 125 mls/hr Documented by: BIN Acetaminophen ([facility]) 1,000 mg in 100 mls @ 400 mls/hr IV Q6H [facility] Last Infusion: 06/22/21 02:20 Dose: 0 mls/hr Documented by: BIN Lisinopril (Lisinopril 20 Mg Tablet) 20 mg PO DAILY [facility]; Protocol Last Admin: 06/21/21 11:26 Dose: Not Given Documented by: THOMAS Non-Admin Reason: Nausea Montelukast Sodium (Montelukast Sodium 10 Mg Tablet) 10 mg PO BEDTIME [facility] Last Admin: 06/21/21 19:47 Dose: 10 mg Documented by: BIN Ondansetron HCl (Ondansetron Hcl 4 Mg/2 Ml Vial) 4 mg IVPUSH Q8H PRN PRN Reason: Nausea Last Admin: 06/21/21 09:44 Dose: 4 mg Documented by: THOMAS Pantoprazole Sodium (Pantoprazole Sodium 40 Mg/10 Ml Vial) 40 mg IVPUSH BID@0630,1630 [facility] Last Admin: 06/22/21 05:31 Dose: 40 mg Documented by: BIN Paroxetine HCl (Paroxetine Hcl 10 Mg Tablet) 10 mg PO DAILY [facility] Last Admin: 06/21/21 11:27 Dose: Not Given Documented by: THOMAS Non-Admin Reason: Nausea Paroxetine HCl (Paroxetine Hcl 40 Mg Tablet) 40 mg PO DAILY [facility] Last Admin: 06/21/21 11:27 Dose: Not Given Documented by: THOMAS Non-Admin Reason: Nausea Pharmacy Consult (Consult Rx Perform Med Rec) 1 each MISCELLANE ONCE PRN PRN Reason: Consult order Pharmacy Consult (Consult Rx Perform Med Rec) 1 each MISCELLANE ONCE PRN PRN Reason: Consult order Polyethylene Glycol (Polyethylene Glycol 3350 17 Gm Powd.Pack) 17 gm PO BID [facility] Last Admin: 06/21/21 20:10 Dose: Not Given Documented by: BIN Non-Admin Reason: Patient Refused Sodium Chloride (0.9 % Sodium Chloride Flush 3 Ml Syringe) 3 ml IVFLUSH QSHIFT [facility] Last Admin: 06/21/21 20:10 Dose: 3 ml Documented by: BIN Zolpidem Tartrate (Zolpidem Tartrate 5 Mg Tablet) 5 mg PO BEDTIME PRN PRN Reason: Insomnia Last Admin: 06/21/21 22:25 Dose: 5 mg Documented by: BIN Labs CBC & Chem 7: 06/21/21 05:37 06/21/21 05:37 Assessment and Plan (1) HTN (hypertension): Status: Acute Plan 66 yo F with a PMH of HTN, asthma, spastic CP, breast ca, prior sigmoid colectomy who is admitted for large bowel obstruction. Medical consult requested for medical mgmt. 1. HTN--BP is a bit high, continue IV meds for now if tolerating PO then restart home meds. 2. Chronic asthma continue baseline meds 3. Abdominal pain secondary to large bowel obstruction s/p colonic dilation, ng in place further mangement by surgery 4. Spastic CP continue baseline meds Will follow along with you.? hold oral meds until bowel function adequately returns Quality Stroke Does the patient have a stroke diagnosis?: No VTE Prior VTE?: No VTE Risk Level:: Surgical - high VTE Device Contraindication: N/A - Device Ordered VTE Drug Contraindication: N/A - Med Ordered
[2021-06-22] MEDS: Dextrose 5 % and Lactated Ring 1,000 ML 125 ML IVCONT ×2 (09:25→16:19)
--- NOTE | 2021-06-22 12:47 | PM.PNGS ---
Subjective Subjective Date of Service: 06/22/21 Interval history: Patient denies abdominal pain. She continues to pass stool which is become more solid. She is also passing flatus. She still feels distended however. She denies nausea or vomiting. She does report feeling very dry and thirsty. Physical Exam Vital Signs: Vital Signs: Last Vital Signs Temp 99.1 F 06/22/21 08:00 Pulse 93 06/22/21 08:00 Resp 17 06/22/21 08:00 BP 150/110 H 06/22/21 08:00 Pulse Ox 93 06/22/21 08:00 BMI result Body Mass Index 26.9 Const: General: no acute distress Nutritional Appearance: well nourished Orientation/consciousness: patient oriented x3 Limitations: no limitations Resp: Effort & Inspection: normal respiratory effort and no respiratory distress GI: Other: Distended, tympany to percussion, nontender Skin: Other: warm, dry, no rash Neuro: General: patient oriented x3 Objective Data Active Medications Albuterol Sulfate (Albuterol Sulfate (0.083%) 2.5 Mg/3 Ml Vial.Neb) 2.5 mg INHALE Q4H PRN PRN Reason: Shortness Of Breath Last Admin: 06/21/21 04:02 Dose: 2.5 mg Documented by: ARELIS Anastrozole (Anastrozole 1 Mg Tablet) 1 mg PO DAILY [facility] Last Admin: 06/22/21 09:33 Dose: Not Given Documented by: THOMAS Non-Admin Reason: NPO Gabapentin (Gabapentin 300 Mg Capsule) 900 mg PO TID [facility] Last Admin: 06/21/21 19:47 Dose: 900 mg Documented by: BIN Hydralazine HCl (Hydralazine Hcl 20 Mg/Ml Vial) 10 mg IVPUSH Q6H PRN; Protocol PRN Reason: ELDER>170/90 Last Admin: 06/21/21 04:16 Dose: 10 mg Documented by: BABAR Hydromorphone HCl (Hydromorphone Hcl 1 Mg/Ml Syringe) 1 mg IVPUSH Q4H PRN; Protocol PRN Reason: Pain, Severe (Pain Scale 7-10) Last Admin: 06/20/21 07:52 Dose: 1 mg Documented by: CARLOTA Dextrose/Lactated Ringer's (D5lr) 1,000 mls @ 125 mls/hr IVCONT .Q8H [facility] Last Admin: 06/22/21 11:02 Dose: Not Given Documented by: THOMAS Non-Admin Reason: IV Running Acetaminophen (Ofirmev) 1,000 mg in 100 mls @ 400 mls/hr IV Q6H [facility] Last Infusion: 06/22/21 10:33 Dose: 0 mls/hr Documented by: THOMAS Lisinopril (Lisinopril 20 Mg Tablet) 20 mg PO DAILY [facility]; Protocol Last Admin: 06/22/21 09:33 Dose: Not Given Documented by: THOMAS Non-Admin Reason: NPO Montelukast Sodium (Montelukast Sodium 10 Mg Tablet) 10 mg PO BEDTIME [facility] Last Admin: 06/21/21 19:47 Dose: 10 mg Documented by: BIN Ondansetron HCl (Ondansetron Hcl 4 Mg/2 Ml Vial) 4 mg IVPUSH Q8H PRN PRN Reason: Nausea Last Admin: 06/21/21 09:44 Dose: 4 mg Documented by: THOMAS Pantoprazole Sodium (Pantoprazole Sodium 40 Mg/10 Ml Vial) 40 mg IVPUSH BID@0630,1630 [facility] Last Admin: 06/22/21 05:31 Dose: 40 mg Documented by: BIN Paroxetine HCl (Paroxetine Hcl 10 Mg Tablet) 10 mg PO DAILY [facility] Last Admin: 06/21/21 11:27 Dose: Not Given Documented by: THOMAS Non-Admin Reason: Nausea Paroxetine HCl (Paroxetine Hcl 40 Mg Tablet) 40 mg PO DAILY [facility] Last Admin: 06/21/21 11:27 Dose: Not Given Documented by: THOMAS Non-Admin Reason: Nausea Pharmacy Consult (Consult Rx Perform Med Rec) 1 each MISCELLANE ONCE PRN PRN Reason: Consult order Pharmacy Consult (Consult Rx Perform Med Rec) 1 each MISCELLANE ONCE PRN PRN Reason: Consult order Polyethylene Glycol (Polyethylene Glycol 3350 17 Gm Powd.Pack) 17 gm PO BID [facility] Last Admin: 06/22/21 09:33 Dose: Not Given Documented by: THOMAS Non-Admin Reason: NPO Sodium Chloride (0.9 % Sodium Chloride Flush 3 Ml Syringe) 3 ml IVFLUSH QSHIFT [facility] Last Admin: 06/22/21 09:25 Dose: Not Given Documented by: THOMAS Non-Admin Reason: IV Running Zolpidem Tartrate (Zolpidem Tartrate 5 Mg Tablet) 5 mg PO BEDTIME PRN PRN Reason: Insomnia Last Admin: 06/21/21 22:25 Dose: 5 mg Documented by: BIN Labs CBC & Chem 7: 06/21/21 05:37 06/21/21 05:37 Procedures Date of Service Date of Service: 06/22/21 Progress Note: A&P Assessment and plan (1) Colonic stricture: Status: Acute Plan 66-year-old female patient status post sigmoid colectomy with rectopexy for rectal prolapse in 2019 now presenting with a colonic stricture. She underwent a balloon dilation 2 days ago and tolerated this procedure well. She did develop some nausea and vomiting, requiring a nasogastric tube replacement. This morning however she feels improved with decreased abdomial pain. We will remove the nasogastric tube in the once again start clear liquid diet. Will continue IV fluids for now. She could restart her medications if clear liquids are tolerated. Patient encouraged to ambulate with assistance. Time Spent With Patient Time: Total time spent is greater than 50% in coordination of care (as documented) at patient's floor/unit and/or counseling patient: No Severe Sepsis: No Severe Sepsis Quality Stroke Does the patient have a stroke diagnosis?: No VTE Prior VTE?: No VTE Risk Level:: Surgical - high VTE Device Contraindication: N/A - Device Ordered VTE Drug Contraindication: N/A - Med Ordered
[2021-06-22] MEDS: Anastrozole 1 MG TABLET PO (14:54)
[2021-06-22] MEDS: PARoxetine HCL 40 MG TABLET PO (14:54)
[2021-06-22] MEDS: PARoxetine HCL 10 MG TABLET PO (14:54)
[2021-06-22] MEDS: Gabapentin 300 MG CAPSULE 900 MG PO ×2 (14:54→21:12)
[2021-06-22 16:00] VITALS: PULSE 105; RESP 18; TEMP 37.1; O2SAT 94
[2021-06-22] MEDS: lisinopriL 20 MG TABLET PO (16:19)
[2021-06-22] MEDS: 0.9 % Sodium Chloride Flush 3 ML SYRINGE IVFLUSH ×2 (16:19→21:10)
[2021-06-22 20:00] VITALS: BP 150/78; PULSE 104; RESP 18; TEMP 36.8; O2SAT 95
[2021-06-22] MEDS: Zolpidem Tartrate 5 MG TABLET PO (21:11)
[2021-06-22] MEDS: Montelukast Sodium 10 MG TABLET PO (21:12)
[2021-06-22] MEDS: polyethylene glycoL 3350 17 GM POWD.PACK PO (21:12)
--- NOTE | 2021-06-22 21:57 | PM.GIPN ---
Subjective Subjective Date of Service: 06/22/21 Interval History: Patient seen this afternoon. She reports feeling better and denies any abdominal pain. She is passing flatus and soft/liquid stool. Denies N/V and is tolerating the clear liquids. Her abdomen does remain distended. Critical Care Time (minutes): 0 Physical Exam Vital Signs: Vital Signs: Last Vital Signs Temp 98.7 F 06/22/21 16:00 Pulse 105 H 06/22/21 16:00 Resp 18 06/22/21 16:00 BP 150/110 H 06/22/21 08:00 Pulse Ox 94 06/22/21 16:00 BMI result Body Mass Index 26.9 Const: General: cooperative, comfortable, no acute distress, alert and awake GI: Other: Abd-Distended but soft and NT, +BS, no mass, no rebound/guarding Objective Data Labs CBC & Chem 7: 06/21/21 05:37 06/21/21 05:37 Microbiology Microbiology Results: Microbiology 06/19/21 Unknown Urine clean catch - Urine duval top Urine Culture - Final Procedures Date of Service Date of Service: 06/22/21 Progress Note: A&P Assessment and plan (1) Colonic stricture: Status: Acute Assessment and Plan: Imp: She remains clinically improved 48 hours s/p balloon dilation of the anastomotic colonic stricture. She does remain distended but otherwise things are much improved by her report and by her exam. Rec: Full liquid diet only and continue Miralax. I advised her of the need to continue this at home and I will arrange a repeat limited colonoscopy for the next couple of weeks to further dilate the stricture in hopes of improving the patency so as to allow her to advance her diet and to hopefully allow the anastomosis to remain patent. If this fails she would need a colostomy. D/W patient in detail and she is comfortable with this plan. She should avoid NSAIDs at home as well. Thanks (2) Anastomotic stricture of colorectal region: Status: Acute Time Spent With Patient Time: Total time spent is greater than 50% in coordination of care (as documented) at patient's floor/unit and/or counseling patient: Quality Stroke Does the patient have a stroke diagnosis?: No VTE Prior VTE?: No VTE Risk Level:: Surgical - high VTE Device Contraindication: N/A - Device Ordered VTE Drug Contraindication: N/A - Med Ordered
[2021-06-22 23:56] VITALS: BP 179/101; PULSE 98; RESP 17; TEMP 36.7; O2SAT 96
[2021-06-23] VITALS (8 sets, daily range): BP systolic 140–189; BP diastolic 80–106; PULSE 80–100; RESP 17–20; TEMP 36.2–36.8; O2SAT 95–98
[2021-06-23] MEDS: hydrALAZINE HCl 20 MG/ML VIAL 10 MG IVPUSH (00:09)
[2021-06-23] MEDS: Dextrose 5 % and Lactated Ring 1,000 ML 125 ML IVCONT (02:06)
[2021-06-23] MEDS: Omeprazole 20 MG CAPSULE.DR PO (06:25)
--- NOTE | 2021-06-23 08:46 | HO.PM.IMPN ---
Subjective Subjective Date of Service: 06/24/21 Interval History: Seen in f/u for med management, doing better. tolerating present diet Review of Systems no abdominal no nausea or voming Physical Exam Vital Signs: Vital Signs: Last Vital Signs Temp 97.9 F 06/23/21 07:27 Pulse 91 06/23/21 07:27 Resp 20 06/23/21 07:27 BP 189/106 H 06/23/21 07:27 Pulse Ox 96 06/23/21 07:27 BMI result Body Mass Index 26.9 Const: Other: General - no acute distress, appears comfortable Cardiovascular - regular rate and rhythm, S1-S2 Lungs - dim sounds at bases Abdomen - distended; NG with bilious drainage Extremities - no edema bilaterally Neuro - awake and alert, no focal deficits Objective Data Active Medications Albuterol Sulfate (Albuterol Sulfate (0.083%) 2.5 Mg/3 Ml Vial.Neb) 2.5 mg INHALE Q4H PRN PRN Reason: Shortness Of Breath Last Admin: 06/21/21 04:02 Dose: 2.5 mg Documented by: ARELIS Anastrozole (Anastrozole 1 Mg Tablet) 1 mg PO DAILY [facility] Last Admin: 06/22/21 14:54 Dose: 1 mg Documented by: THOMAS Gabapentin (Gabapentin 300 Mg Capsule) 900 mg PO TID [facility] Last Admin: 06/22/21 21:12 Dose: 900 mg Documented by: TASHI Hydralazine HCl (Hydralazine Hcl 20 Mg/Ml Vial) 10 mg IVPUSH Q6H PRN; Protocol PRN Reason: ELDER>170/90 Last Admin: 06/23/21 00:09 Dose: 10 mg Documented by: TASHI Comments: NQ=721/101, P=100 Hydromorphone HCl (Hydromorphone Hcl 1 Mg/Ml Syringe) 1 mg IVPUSH Q4H PRN; Protocol PRN Reason: Pain, Severe (Pain Scale 7-10) Last Admin: 06/20/21 07:52 Dose: 1 mg Documented by: CARLOTA Dextrose/Lactated Ringer's (D5lr) 1,000 mls @ 125 mls/hr IVCONT .Q8H [facility] Last Admin: 06/23/21 02:06 Dose: 125 mls/hr Documented by: TASHI Acetaminophen (Ofirmev) 1,000 mg in 100 mls @ 400 mls/hr IV Q6H [facility] Last Infusion: 06/23/21 03:30 Dose: 0 mls/hr Documented by: TASHI Lisinopril (Lisinopril 20 Mg Tablet) 20 mg PO DAILY [facility]; Protocol Last Admin: 06/22/21 16:19 Dose: 20 mg Documented by: THOMAS Montelukast Sodium (Montelukast Sodium 10 Mg Tablet) 10 mg PO BEDTIME [facility] Last Admin: 06/22/21 21:12 Dose: 10 mg Documented by: TASHI Omeprazole (Omeprazole 20 Mg Capsule.Dr) 20 mg PO DAILY@0630 [facility] Last Admin: 06/23/21 06:25 Dose: 20 mg Documented by: TASHI Ondansetron HCl (Ondansetron Hcl 4 Mg/2 Ml Vial) 4 mg IVPUSH Q8H PRN PRN Reason: Nausea Last Admin: 06/21/21 09:44 Dose: 4 mg Documented by: THOMAS Paroxetine HCl (Paroxetine Hcl 10 Mg Tablet) 10 mg PO DAILY [facility] Last Admin: 06/22/21 14:54 Dose: 10 mg Documented by: THOMAS Paroxetine HCl (Paroxetine Hcl 40 Mg Tablet) 40 mg PO DAILY [facility] Last Admin: 06/22/21 14:54 Dose: 40 mg Documented by: THOMAS Pharmacy Consult (Consult Rx Perform Med Rec) 1 each MISCELLANE ONCE PRN PRN Reason: Consult order Pharmacy Consult (Consult Rx Perform Med Rec) 1 each MISCELLANE ONCE PRN PRN Reason: Consult order Polyethylene Glycol (Polyethylene Glycol 3350 17 Gm Powd.Pack) 17 gm PO BID [facility] Last Admin: 06/22/21 21:12 Dose: 17 gm Documented by: TASHI Sodium Chloride (0.9 % Sodium Chloride Flush 3 Ml Syringe) 3 ml IVFLUSH QSHIFT [facility] Last Admin: 06/22/21 21:10 Dose: 3 ml Documented by: TASHI Zolpidem Tartrate (Zolpidem Tartrate 5 Mg Tablet) 5 mg PO BEDTIME PRN PRN Reason: Insomnia Last Admin: 06/22/21 21:11 Dose: 5 mg Documented by: TASHI Labs CBC & Chem 7: 06/21/21 05:37 06/23/21 09:47 Assessment and Plan (1) Colonic stricture: Status: Acute Plan 66 yo F with a PMH of HTN, asthma, spastic CP, breast ca, prior sigmoid colectomy who is admitted for large bowel obstruction. Medical consult requested for medical mgmt. 1. HTN--BP readings have been generally very high and especially this morning. -Continue home Lisinpril 10 daily -Add Norvasc 5 daily 2. Chronic asthma continue baseline meds 3. Abdominal pain secondary to large bowel obstruction s/p colonic dilation, NG removed and diet being advanced by surgery. GI following, will need repat colonocopy on outpatient bais 4. Spastic CP continue baseline meds 5. HypOkalemia--repeat BMP, K supplement Will follow along with you.? DVT prophylaxis: compression device Quality Stroke Does the patient have a stroke diagnosis?: No VTE Prior VTE?: No VTE Risk Level:: Surgical - high VTE Device Contraindication: N/A - Device Ordered VTE Drug Contraindication: N/A - Med Ordered
--- NOTE | 2021-06-23 09:11 | P.PNGS_ITS ---
Subjective Subjective Date of Service: 06/23/21 <Nicole Bravo PA-C - Last Filed: 06/23/21 09:15> 06/23/21 <Manuel Jose MD - Last Filed: 06/23/21 10:35> Interval history: Feeling a little better but still feels very bloated and tight . Tolerated clear liquids yesterday and full liquids today. Continues to have bowel movements and passing some flatus but not much. <Nicole Bravo PA-C - Last Filed: 06/23/21 09:15> Physical Exam Vital Signs: Vital Signs: Last Vital Signs Temp 97.9 F 06/23/21 07:27 Pulse 91 06/23/21 07:27 Resp 20 06/23/21 07:27 BP 189/106 H 06/23/21 07:27 Pulse Ox 96 06/23/21 07:27 BMI result Body Mass Index 26.9 <Nicole Bravo PA-C - Last Filed: 06/23/21 09:15> Const: General: no acute distress and alert <Nicole Bravo PA-C - Last Filed: 06/23/21 09:15> Resp: Effort & Inspection: normal respiratory effort <Nicole Bravo PA-C - Last Filed: 06/23/21 09:15> GI: Inspection: Yes distended <Nicole Bravo PA-C - Last Filed: 06/23/21 09:15> Palpation (GI): Soft to palpation, nontender, no guarding and not rigid <Nicole Bravo PA-C - Last Filed: 06/23/21 09:15> Percussion: Yes tympanic to percussion <Nicole Bravo PA-C - Last Filed: 06/23/21 09:15> Skin: General skin exam: no rashes or lesions noted <JAVI Ballesteros Last Filed: 06/23/21 09:15> Objective Data Active Medications Albuterol Sulfate (Albuterol Sulfate (0.083%) 2.5 Mg/3 Ml Vial.Neb) 2.5 mg INHALE Q4H PRN PRN Reason: Shortness Of Breath Last Admin: 06/21/21 04:02 Dose: 2.5 mg Documented by: ARELIS Amlodipine Besylate (Amlodipine Besylate 5 Mg Tablet) 5 mg PO DAILY [facility]; Protocol Anastrozole (Anastrozole 1 Mg Tablet) 1 mg PO DAILY [facility] Last Admin: 06/22/21 14:54 Dose: 1 mg Documented by: THOMAS Gabapentin (Gabapentin 300 Mg Capsule) 900 mg PO TID [facility] Last Admin: 06/22/21 21:12 Dose: 900 mg Documented by: TASHI Hydralazine HCl (Hydralazine Hcl 20 Mg/Ml Vial) 10 mg IVPUSH Q6H PRN; Protocol PRN Reason: ELDER>170/90 Last Admin: 06/23/21 00:09 Dose: 10 mg Documented by: TASHI Comments: QC=449/101, P=100 Hydromorphone HCl (Hydromorphone Hcl 1 Mg/Ml Syringe) 1 mg IVPUSH Q4H PRN; Protocol PRN Reason: Pain, Severe (Pain Scale 7-10) Last Admin: 06/20/21 07:52 Dose: 1 mg Documented by: CARLOTA Dextrose/Lactated Ringer's (D5lr) 1,000 mls @ 80 mls/hr IVCONT .[id number] [facility] Last Admin: 06/23/21 02:06 Dose: 125 mls/hr Documented by: TASHI Acetaminophen (Ofirmev) 1,000 mg in 100 mls @ 400 mls/hr IV Q6H [facility] Last Infusion: 06/23/21 03:30 Dose: 0 mls/hr Documented by: TASHI Lisinopril (Lisinopril 20 Mg Tablet) 20 mg PO DAILY [facility]; Protocol Last Admin: 06/22/21 16:19 Dose: 20 mg Documented by: THOMAS Montelukast Sodium (Montelukast Sodium 10 Mg Tablet) 10 mg PO BEDTIME [facility] Last Admin: 06/22/21 21:12 Dose: 10 mg Documented by: TASHI Omeprazole (Omeprazole 20 Mg Capsule.Dr) 20 mg PO DAILY@0630 [facility] Last Admin: 06/23/21 06:25 Dose: 20 mg Documented by: TASHI Ondansetron HCl (Ondansetron Hcl 4 Mg/2 Ml Vial) 4 mg IVPUSH Q8H PRN PRN Reason: Nausea Last Admin: 06/21/21 09:44 Dose: 4 mg Documented by: THOMAS Paroxetine HCl (Paroxetine Hcl 10 Mg Tablet) 10 mg PO DAILY [facility] Last Admin: 06/22/21 14:54 Dose: 10 mg Documented by: THOMAS Paroxetine HCl (Paroxetine Hcl 40 Mg Tablet) 40 mg PO DAILY [facility] Last Admin: 06/22/21 14:54 Dose: 40 mg Documented by: THOMAS Pharmacy Consult (Consult Rx Perform Med Rec) 1 each MISCELLANE ONCE PRN PRN Reason: Consult order Pharmacy Consult (Consult Rx Perform Med Rec) 1 each MISCELLANE ONCE PRN PRN Reason: Consult order Polyethylene Glycol (Polyethylene Glycol 3350 17 Gm Powd.Pack) 17 gm PO BID [facility] Last Admin: 06/22/21 21:12 Dose: 17 gm Documented by: TASHI Sodium Chloride (0.9 % Sodium Chloride Flush 3 Ml Syringe) 3 ml IVFLUSH QSHIFT [facility] Last Admin: 06/22/21 21:10 Dose: 3 ml Documented by: TASHI Zolpidem Tartrate (Zolpidem Tartrate 5 Mg Tablet) 5 mg PO BEDTIME PRN PRN Reason: Insomnia Last Admin: 06/22/21 21:11 Dose: 5 mg Documented by: TASHI <Nicole Bravo PA-C - Last Filed: 06/23/21 09:15> Labs CBC & Chem 7: : 06/21/21 05:37 06/23/21 09:47 <JAVI Ballesteros Last Filed: 06/23/21 09:15> Procedures Date of Service Date of Service: 06/23/21 <JAVI Ballesteros Last Filed: 06/23/21 09:15> Progress Note: A&P Assessment and plan (1) Anastomotic stricture of colorectal region: Status: Acute <JAVI Ballesteros Last Filed: 06/23/21 09:15> Plan 66-year-old female patient status post sigmoid colectomy with rectopexy for rectal prolapse in 2019 now presenting with a colonic stricture. She underwent a balloon dilation 3 days ago. She did require NGT insertion post operatively but this was removed yesterday. She was tolerating clears and is on full liquids this morning. Reports bowel movements but not much flatus. Her abdomen does remain distended but nontender. Will continue full liquids for now. Patient encouraged to ambulate with assistance. <Nicole Bravo PA-C - Last Filed: 06/23/21 09:15> 66-year-old female patient status post sigmoid colectomy with rectopexy for rectal prolapse in 2019 now presenting with a colonic stricture. She underwent a balloon dilation 3 days ago. She did require NGT insertion post operatively but this was removed yesterday. She was tolerating clears and is on full liquids this morning. Reports bowel movements but not much flatus. Her abdomen does remain distended but nontender. Will continue full liquids for now. Patient encouraged to ambulate with [place]. Overall, patient feels much improved with no abdominal pain. She is having semiformed BMs and is tolerating a full liquid diet. Continue home meds. Physical therapy working on ambulation. Plan discharge to home in next day or two with GI follow up. <Manuel Jose MD - Last Filed: 06/23/21 10:35> Time Spent With Patient Time: Total time spent is greater than 50% in coordination of care (as documented) at patient's floor/unit and/or counseling patient: <Nicole Bravo PA-C - Last Filed: 06/23/21 09:15> Quality Stroke Does the patient have a stroke diagnosis?: No <Nicole Bravo PA-C - Last Filed: 06/23/21 09:15> VTE Prior VTE?: No <Nicole Bravo PA-C - Last Filed: 06/23/21 09:15> VTE Risk Level:: Surgical - high <Nicole Bravo PA-C - Last Filed: 06/23/21 09:15> VTE Device Contraindication: N/A - Device Ordered <JAVI Ballesteros Last Filed: 06/23/21 0 9:15> VTE Drug Contraindication: N/A - Med Ordered <JAVI Ballesteros Last Filed: 06/23/21 09:15>
[2021-06-23] MEDS: PARoxetine HCL 40 MG TABLET PO (09:26)
[2021-06-23] MEDS: polyethylene glycoL 3350 17 GM POWD.PACK PO (09:26)
[2021-06-23] MEDS: Anastrozole 1 MG TABLET PO (09:26)
[2021-06-23] MEDS: PARoxetine HCL 10 MG TABLET PO (09:26)
[2021-06-23] MEDS: Gabapentin 300 MG CAPSULE 900 MG PO ×3 (09:26→19:57)
[2021-06-23] MEDS: lisinopriL 20 MG TABLET PO (09:27)
[2021-06-23] MEDS: amLODIPine Besylate 5 MG TABLET PO (09:27)
[2021-06-23 10:23] LABS: Anion Gap 12 (12-20); Blood Urea Nitrogen 18 mg/dL (9-16); Calcium 9.1 mg/dL (8.4-10.2); Carbon Dioxide 26 mmol/L (22-29); Chloride 103 mmol/L (96-108); Creatinine Clr Calc Pharmacy 70.6; Estimated Glomerular Filt Rate > 60; Glucose Random 147 mg/dL (60-115); Potassium 2.8 mmol/L (3.3-5.1); Sodium 138 mmol/L (135-145)
[2021-06-23] MEDS: Dextrose 5 % and Lactated Ring 1,000 ML 80 ML IVCONT (14:14)
--- NOTE | 2021-06-23 16:28 | MHC.CM.PN ---
NURSE CASE MANAGEMENT NOTE ELECTRONIC MEDICAL RECORD REVIEWED ALONG WITH CASE DISUCSSEEMWITH STAFF NRUSE , PER DOCUMENTATION ;(66-year-old female patient status post sigmoid colectomy with rectopexy for rectal prolapse in 2019 now presenting with a colonic stricture. She did require NGT insertion post operatively but this was removed yesterday. She was tolerating clears and is on full liquids 06/23/21er abdomen does remain distended but nontender. Will continue full liquids for now. Patient encouraged to ambulate with assistance. DISCHARGE PLAN ANTICIPATE HOME NO SERVICES TRANSPORTATION FAMILY [facility] MEDICARE IMMM PCP ROSA ISELA GOFF
[2021-06-23] MEDS: Montelukast Sodium 10 MG TABLET PO (19:57)
[2021-06-24] VITALS (8 sets, daily range): BP systolic 150–174; BP diastolic 65–101; PULSE 85–104; RESP 17–20; TEMP 36.3–36.7; O2SAT 95–98
[2021-06-24] MEDS: Dextrose 5 % and Lactated Ring 1,000 ML 80 ML IVCONT (01:55)
[2021-06-24] MEDS: Omeprazole 20 MG CAPSULE.DR PO (06:16)
[2021-06-24] MEDS: hydrALAZINE HCl 20 MG/ML VIAL 10 MG IVPUSH (08:12)
[2021-06-24] MEDS: Anastrozole 1 MG TABLET PO (08:12)
[2021-06-24] MEDS: PARoxetine HCL 40 MG TABLET PO (08:13)
[2021-06-24] MEDS: amLODIPine Besylate 5 MG TABLET PO (08:13)
[2021-06-24] MEDS: lisinopriL 20 MG TABLET PO (08:13)
[2021-06-24] MEDS: Gabapentin 300 MG CAPSULE 900 MG PO ×3 (08:13→21:46)
[2021-06-24] MEDS: PARoxetine HCL 10 MG TABLET PO (08:13)
[2021-06-24] MEDS: 0.9 % Sodium Chloride Flush 3 ML SYRINGE IVFLUSH ×3 (08:14→21:46)
--- NOTE | 2021-06-24 08:37 | P.PNIM_ITS ---
Subjective Subjective Date of Service: 06/25/21 Interval History: Seen in f/u for med management, doing better. tolerating present diet Review of Systems no abdominal no nausea or voming Physical Exam Vital Signs: Vital Signs: Last Vital Signs Temp 97.8 F 06/24/21 07:46 Pulse 85 06/24/21 07:46 Resp 20 06/24/21 07:46 BP 174/101 H 06/24/21 07:46 Pulse Ox 97 06/24/21 07:46 BMI result Body Mass Index 26.9 Const: Other: General - no acute distress, appears comfortable Cardiovascular - regular rate and rhythm, S1-S2 Lungs - dim sounds at bases Abdomen - distended; NG with bilious drainage Extremities - no edema bilaterally Neuro - awake and alert, no focal deficits Objective Data Active Medications Albuterol Sulfate (Albuterol Sulfate (0.083%) 2.5 Mg/3 Ml Vial.Neb) 2.5 mg INHALE Q4H PRN PRN Reason: Shortness Of Breath Last Admin: 06/21/21 04:02 Dose: 2.5 mg Documented by: ARELIS Amlodipine Besylate (Amlodipine Besylate 5 Mg Tablet) 5 mg PO DAILY [facility]; Protocol Last Admin: 06/24/21 08:13 Dose: 5 mg Documented by: CHERYLE Anastrozole (Anastrozole 1 Mg Tablet) 1 mg PO DAILY [facility] Last Admin: 06/24/21 08:12 Dose: 1 mg Documented by: CHERYLE Gabapentin (Gabapentin 300 Mg Capsule) 900 mg PO TID [facility] Last Admin: 06/24/21 08:13 Dose: 900 mg Documented by: CHERYLE Hydralazine HCl (Hydralazine Hcl 20 Mg/Ml Vial) 10 mg IVPUSH Q6H PRN; Protocol PRN Reason: ELDER>170/90 Last Admin: 06/24/21 08:12 Dose: 10 mg Documented by: CHERYLE Hydromorphone HCl (Hydromorphone Hcl 1 Mg/Ml Syringe) 1 mg IVPUSH Q4H PRN; Protocol PRN Reason: Pain, Severe (Pain Scale 7-10) Last Admin: 06/20/21 07:52 Dose: 1 mg Documented by: CARLOTA Dextrose/Lactated Ringer's (D5lr) 1,000 mls @ 80 mls/hr IVCONT .[id number] [facility] Last Admin: 06/24/21 01:55 Dose: 80 mls/hr Documented by: FANNY Acetaminophen ([facility]) 1,000 mg in 100 mls @ 400 mls/hr IV Q6H [facility] Last Admin: 06/24/21 08:13 Dose: 200 mls/hr Documented by: CHERYLE Lisinopril (Lisinopril 20 Mg Tablet) 20 mg PO DAILY [facility]; Protocol Last Admin: 06/24/21 08:13 Dose: 20 mg Documented by: CHERYLE Montelukast Sodium (Montelukast Sodium 10 Mg Tablet) 10 mg PO BEDTIME [facility] Last Admin: 06/23/21 19:57 Dose: 10 mg Documented by: FANNY Omeprazole (Omeprazole 20 Mg Capsule.Dr) 20 mg PO DAILY@0630 [facility] Last Admin: 06/24/21 06:16 Dose: 20 mg Documented by: FANNY Ondansetron HCl (Ondansetron Hcl 4 Mg/2 Ml Vial) 4 mg IVPUSH Q8H PRN PRN Reason: Nausea Last Admin: 06/21/21 09:44 Dose: 4 mg Documented by: THOMAS Paroxetine HCl (Paroxetine Hcl 10 Mg Tablet) 10 mg PO DAILY [facility] Last Admin: 06/24/21 08:13 Dose: 10 mg Documented by: CHERYLE Paroxetine HCl (Paroxetine Hcl 40 Mg Tablet) 40 mg PO DAILY [facility] Last Admin: 06/24/21 08:13 Dose: 40 mg Documented by: CHERYLE Pharmacy Consult (Consult Rx Perform Med Rec) 1 each MISCELLANE ONCE PRN PRN Reason: Consult order Pharmacy Consult (Consult Rx Perform Med Rec) 1 each MISCELLANE ONCE PRN PRN Reason: Consult order Polyethylene Glycol (Polyethylene Glycol 3350 17 Gm Powd.Pack) 17 gm PO BID [facility] Last Admin: 06/24/21 08:15 Dose: Not Given Documented by: CHERYLE Non-Admin Reason: MX BM's Sodium Chloride (0.9 % Sodium Chloride Flush 3 Ml Syringe) 3 ml IVFLUSH QSHIFT [facility] Last Admin: 06/24/21 08:14 Dose: 3 ml Documented by: CHERYLE Zolpidem Tartrate (Zolpidem Tartrate 5 Mg Tablet) 5 mg PO BEDTIME PRN PRN Reason: Insomnia Last Admin: 06/22/21 21:11 Dose: 5 mg Documented by: TASHI Labs CBC & Chem 7: 06/21/21 05:37 06/23/21 09:47 Labs: Laboratory Results - last 24 hr 06/23/21 09:47 Anion Gap 12 Estim Creat Clear Calc 70.6 Estimated GFR > 60 Random Glucose 147 H Calcium 9.1 Assessment and Plan (1) Colonic stricture: Status: Acute Plan 66 yo F with a PMH of HTN, asthma, spastic CP, breast ca, prior sigmoid colectomy who is admitted for large bowel obstruction. Medical consult requested for medical mgmt. 1. HTN--BP readings have been generally very high and especially this morning. -Continue home Lisinpril, increase to 20 -Added Norvasc 5 daily 2. Chronic asthma continue baseline meds 3. Abdominal pain secondary to large bowel obstruction s/p colonic dilation, NG removed and diet being advanced by surgery. GI following, will need repat colonocopy on outpatient bais 4. Spastic CP continue baseline meds 5. HypOkalemia--repeat BMP, K supplement Will follow along with you.? DVT prophylaxis: compression device Quality Stroke Does the patient have a stroke diagnosis?: No VTE Prior VTE?: No VTE Risk Level:: Surgical - high VTE Device Contraindication: N/A - Device Ordered VTE Drug Contraindication: N/A - Med Ordered
[2021-06-24] MEDS: Potassium Chloride/H20 10 MEQ/100 ML PIGGYBACK 100 MEQ IV ×4 (10:01→13:43)
[2021-06-24] MEDS: Potassium Chloride Packet 20 MEQ PACKET 40 MEQ PO (10:01)
--- NOTE | 2021-06-24 10:54 | PM.PNGS ---
Subjective Subjective Date of Service: 06/24/21 Interval history: Feels much better this morning. Continues to pass multiple bowel movements and flatus. OOB to chair this morning. Tolerating full liquids and would like to eat. Physical Exam Vital Signs: Vital Signs: Last Vital Signs Temp 97.8 F 06/24/21 07:46 Pulse 85 06/24/21 07:46 Resp 20 06/24/21 07:46 BP 174/101 H 06/24/21 07:46 Pulse Ox 97 06/24/21 07:46 BMI result Body Mass Index 26.9 Const: General: comfortable, no acute distress and alert GI: Inspection: Yes distended (decreasingly) Palpation (GI): Soft to palpation, nontender, no guarding and not rigid Skin: General skin exam: no rashes or lesions noted Objective Data Active Medications Albuterol Sulfate (Albuterol Sulfate (0.083%) 2.5 Mg/3 Ml Vial.Neb) 2.5 mg INHALE Q4H PRN PRN Reason: Shortness Of Breath Last Admin: 06/21/21 04:02 Dose: 2.5 mg Documented by: ARELIS Amlodipine Besylate (Amlodipine Besylate 5 Mg Tablet) 5 mg PO DAILY [facility]; Protocol Last Admin: 06/24/21 08:13 Dose: 5 mg Documented by: CHERYLE Anastrozole (Anastrozole 1 Mg Tablet) 1 mg PO DAILY [facility] Last Admin: 06/24/21 08:12 Dose: 1 mg Documented by: CHERYLE Gabapentin (Gabapentin 300 Mg Capsule) 900 mg PO TID [facility] Last Admin: 06/24/21 08:13 Dose: 900 mg Documented by: CHERYLE Hydralazine HCl (Hydralazine Hcl 20 Mg/Ml Vial) 10 mg IVPUSH Q6H PRN; Protocol PRN Reason: ELDER>170/90 Last Admin: 06/24/21 08:12 Dose: 10 mg Documented by: CHERYLE Hydromorphone HCl (Hydromorphone Hcl 1 Mg/Ml Syringe) 1 mg IVPUSH Q4H PRN; Protocol PRN Reason: Pain, Severe (Pain Scale 7-10) Last Admin: 06/20/21 07:52 Dose: 1 mg Documented by: CARLOTA Dextrose/Lactated Ringer's (D5lr) 1,000 mls @ 80 mls/hr IVCONT .[id number] [facility] Last Admin: 06/24/21 01:55 Dose: 80 mls/hr Documented by: FANNY Acetaminophen (Ofirmev) 1,000 mg in 100 mls @ 400 mls/hr IV Q6H [facility] Last Infusion: 06/24/21 10:09 Dose: 0 mls/hr Documented by: CHERYLE Potassium Chloride () 10 meq in 100 mls @ 100 mls/hr IV Q1H [facility] Stop: 06/24/21 13:14 Last Admin: 06/24/21 10:01 Dose: 100 mls/hr Documented by: CHERYLE Lisinopril (Lisinopril 20 Mg Tablet) 20 mg PO DAILY [facility]; Protocol Last Admin: 06/24/21 08:13 Dose: 20 mg Documented by: CHERYLE Montelukast Sodium (Montelukast Sodium 10 Mg Tablet) 10 mg PO BEDTIME [facility] Last Admin: 06/23/21 19:57 Dose: 10 mg Documented by: FANNY Omeprazole (Omeprazole 20 Mg Capsule.Dr) 20 mg PO DAILY@0630 [facility] Last Admin: 06/24/21 06:16 Dose: 20 mg Documented by: FANNY Ondansetron HCl (Ondansetron Hcl 4 Mg/2 Ml Vial) 4 mg IVPUSH Q8H PRN PRN Reason: Nausea Last Admin: 06/21/21 09:44 Dose: 4 mg Documented by: THOMAS Paroxetine HCl (Paroxetine Hcl 10 Mg Tablet) 10 mg PO DAILY [facility] Last Admin: 06/24/21 08:13 Dose: 10 mg Documented by: CHERYLE Paroxetine HCl (Paroxetine Hcl 40 Mg Tablet) 40 mg PO DAILY [facility] Last Admin: 06/24/21 08:13 Dose: 40 mg Documented by: CHERYLE Pharmacy Consult (Consult Rx Perform Med Rec) 1 each MISCELLANE ONCE PRN PRN Reason: Consult order Pharmacy Consult (Consult Rx Perform Med Rec) 1 each MISCELLANE ONCE PRN PRN Reason: Consult order Polyethylene Glycol (Polyethylene Glycol 3350 17 Gm Powd.Pack) 17 gm PO BID [facility] Last Admin: 06/24/21 08:15 Dose: Not Given Documented by: CHERYLE Non-Admin Reason: MX BM's Sodium Chloride (0.9 % Sodium Chloride Flush 3 Ml Syringe) 3 ml IVFLUSH QSHIFT [facility] Last Admin: 06/24/21 08:14 Dose: 3 ml Documented by: CHERYLE Zolpidem Tartrate (Zolpidem Tartrate 5 Mg Tablet) 5 mg PO BEDTIME PRN PRN Reason: Insomnia Last Admin: 06/22/21 21:11 Dose: 5 mg Documented by: TASHI Labs CBC & Chem 7: 06/21/21 05:37 06/23/21 09:47 Procedures Date of Service Date of Service: 06/24/21 Progress Note: A&P Assessment and plan (1) Anastomotic stricture of colorectal region: Status: Acute Plan 66-year-old female patient status post sigmoid colectomy with rectopexy for rectal prolapse in 2019 now presenting with a colonic stricture. She underwent a balloon dilation 4 days ago. She continues to do well. Tolerating full liquids. Now passing bowel movements and more flatus. Her abdomen is much less distended this morning and is soft. Will advance to solid diet. If tolerating solid diet, stable for d/c to home with GI f/u. Patient comfortable with plan. Time Spent With Patient Time: Total time spent is greater than 50% in coordination of care (as documented) at patient's floor/unit and/or counseling patient: Quality Stroke Does the patient have a stroke diagnosis?: No VTE Prior VTE?: No VTE Risk Level:: Surgical - high VTE Device Contraindication: N/A - Device Ordered VTE Drug Contraindication: N/A - Med Ordered
--- NOTE | 2021-06-24 21:15 | PM.EVENT ---
Event Note Date of Service: 06/24/21 Event Note: GI F/U-Course noted She seems to be stable and improved with continued passage of BM's and flatus. I would continue the Miralax and a low residue/chopped up diet(I placed the order for the diet) to hopefully keep the BM's moving easily past the relatively narrow anastomosis. I will arrange for a F/U limited colonoscopy with further balloon dilation as an outpatient. Thanks
[2021-06-24] MEDS: Montelukast Sodium 10 MG TABLET PO (21:46)
[2021-06-25] VITALS (8 sets, daily range): BP systolic 131–181; BP diastolic 80–102; PULSE 88–97; RESP 17–20; TEMP 36.6–37; O2SAT 94–97
[2021-06-25] MEDS: hydrALAZINE HCl 20 MG/ML VIAL 10 MG IVPUSH (04:24)
[2021-06-25] MEDS: Omeprazole 20 MG CAPSULE.DR PO (04:36)
[2021-06-25] MEDS: 0.9 % Sodium Chloride Flush 3 ML SYRINGE IVFLUSH ×3 (08:52→20:49)
[2021-06-25] MEDS: PARoxetine HCL 40 MG TABLET PO (08:52)
[2021-06-25] MEDS: amLODIPine Besylate 5 MG TABLET PO ×2 (08:52→10:32)
[2021-06-25] MEDS: lisinopriL 20 MG TABLET PO (08:52)
[2021-06-25] MEDS: Anastrozole 1 MG TABLET PO (08:52)
[2021-06-25] MEDS: PARoxetine HCL 10 MG TABLET PO (08:52)
[2021-06-25] MEDS: Gabapentin 300 MG CAPSULE 900 MG PO ×3 (08:59→20:39)
--- NOTE | 2021-06-25 09:03 | HO.PM.IMPN ---
Subjective Subjective Date of Service: 06/25/21 Interval History: Seen in f/u for med management, doing better. tolerating regular diet. BP seem high this morning Review of Systems no abdominal no nausea or voming Physical Exam Vital Signs: Vital Signs: Last Vital Signs Temp 97.9 F 06/25/21 07:27 Pulse 88 06/25/21 07:27 Resp 20 06/25/21 07:27 BP 181/91 H 06/25/21 07:27 Pulse Ox 94 06/25/21 07:27 Oxygen Flow Rate 0 06/24/21 16:00 BMI result Body Mass Index 26.9 Const: Other: General - no acute distress, appears comfortable Cardiovascular - regular rate and rhythm, S1-S2 Lungs - dim sounds at bases Abdomen - distended; NG with bilious drainage Extremities - no edema bilaterally Neuro - awake and alert, no focal deficits Objective Data Active Medications Albuterol Sulfate (Albuterol Sulfate (0.083%) 2.5 Mg/3 Ml Vial.Neb) 2.5 mg INHALE Q4H PRN PRN Reason: Shortness Of Breath Last Admin: 06/21/21 04:02 Dose: 2.5 mg Documented by: ARELIS Amlodipine Besylate (Amlodipine Besylate 5 Mg Tablet) 5 mg PO DAILY [facility]; Protocol Last Admin: 06/25/21 08:52 Dose: 5 mg Documented by: CHERYLE Anastrozole (Anastrozole 1 Mg Tablet) 1 mg PO DAILY [facility] Last Admin: 06/25/21 08:52 Dose: 1 mg Documented by: CHERYLE Gabapentin (Gabapentin 300 Mg Capsule) 900 mg PO TID [facility] Last Admin: 06/25/21 08:59 Dose: 900 mg Documented by: CHERYLE Hydralazine HCl (Hydralazine Hcl 20 Mg/Ml Vial) 10 mg IVPUSH Q6H PRN; Protocol PRN Reason: ELDER>170/90 Last Admin: 06/25/21 04:24 Dose: 10 mg Documented by: FANNY Lisinopril (Lisinopril 20 Mg Tablet) 20 mg PO DAILY [facility]; Protocol Last Admin: 06/25/21 08:52 Dose: 20 mg Documented by: CHERYLE Montelukast Sodium (Montelukast Sodium 10 Mg Tablet) 10 mg PO BEDTIME [facility] Last Admin: 06/24/21 21:46 Dose: 10 mg Documented by: FANNY Omeprazole (Omeprazole 20 Mg Capsule.) 20 mg PO DAILY@0630 [facility] Last Admin: 06/25/21 04:36 Dose: 20 mg Documented by: FANNY Ondansetron HCl (Ondansetron Hcl 4 Mg/2 Ml Vial) 4 mg IVPUSH Q8H PRN PRN Reason: Nausea Last Admin: 06/21/21 09:44 Dose: 4 mg Documented by: THOMAS Paroxetine HCl (Paroxetine Hcl 10 Mg Tablet) 10 mg PO DAILY [facility] Last Admin: 06/25/21 08:52 Dose: 10 mg Documented by: CHERYLE Paroxetine HCl (Paroxetine Hcl 40 Mg Tablet) 40 mg PO DAILY [facility] Last Admin: 06/25/21 08:52 Dose: 40 mg Documented by: CHERYLE Pharmacy Consult (Consult Rx Perform Med Rec) 1 each MISCELLANE ONCE PRN PRN Reason: Consult order Pharmacy Consult (Consult Rx Perform Med Rec) 1 each MISCELLANE ONCE PRN PRN Reason: Consult order Polyethylene Glycol (Polyethylene Glycol 3350 17 Gm Powd.Pack) 17 gm PO BID [facility] Last Admin: 06/24/21 21:46 Dose: Not Given Documented by: FANNY Non-Admin Reason: loose bm Sodium Chloride (0.9 % Sodium Chloride Flush 3 Ml Syringe) 3 ml IVFLUSH QSHIFT [facility] Last Admin: 06/25/21 08:52 Dose: 3 ml Documented by: CHERYLE Zolpidem Tartrate (Zolpidem Tartrate 5 Mg Tablet) 5 mg PO BEDTIME PRN PRN Reason: Insomnia Last Admin: 06/22/21 21:11 Dose: 5 mg Documented by: CASTSARABJIT Labs CBC & Chem 7: 06/21/21 05:37 06/23/21 09:47 Assessment and Plan (1) Colonic stricture: Status: Acute Plan 66 yo F with a PMH of HTN, asthma, spastic CP, breast ca, prior sigmoid colectomy who is admitted for large bowel obstruction. Medical consult requested for medical mgmt. 1. HTN--BP readings have been generally very high and especially this morning. -Continue home Lisinpril, increase to 20 -Increase Norvasc to 10 mg daily 2. Chronic asthma continue baseline meds 3. Abdominal pain secondary to large bowel obstruction s/p colonic dilation, NG removed and diet being advanced by surgery. GI following, will need repat colonocopy on outpatient bais 4. Spastic CP continue baseline meds 5. HypOkalemia--repeat BMP given supplement yesterday, recheck level and mag level today Will follow along with you.? DVT prophylaxis: compression device Quality Stroke Does the patient have a stroke diagnosis?: No VTE Prior VTE?: No VTE Risk Level:: Surgical - high VTE Device Contraindication: N/A - Device Ordered VTE Drug Contraindication: N/A - Med Ordered
--- NOTE | 2021-06-25 09:35 | MHC.CLN ---
NUTRITION CONSULT FOR SKIN INTEGRITY. STAGE I REDNESS TO BUTTOCKS. AVERAGE INTAKE X 3 DAYS APPROXIMATELY 50% OF MEALS. DIET=LOW FIBER, NDD3. NO ADDITIONAL NUTRITION INTERVENTIONS.
[2021-06-25 10:25] LABS: Anion Gap 10 (12-20); Blood Urea Nitrogen 9 mg/dL (9-16); Calcium 8.8 mg/dL (8.4-10.2); Carbon Dioxide 24 mmol/L (22-29); Chloride 105 mmol/L (96-108); Creatinine Clr Calc Pharmacy 81.9; Estimated Glomerular Filt Rate > 60; Glucose Random 135 mg/dL (60-115); Magnesium 1.6 mg/dL (1.6-2.6); Potassium 2.2 mmol/L (3.3-5.1); Sodium 137 mmol/L (135-145)
[2021-06-25] MEDS: Potassium Chloride Packet 20 MEQ PACKET 40 MEQ PO ×3 (10:32→20:44)
[2021-06-25] MEDS: Potassium Chloride/H20 10 MEQ/100 ML PIGGYBACK 100 MEQ IV ×2 (10:33→11:40)
--- NOTE | 2021-06-25 13:41 | P.PNGS_ITS ---
Subjective Subjective Date of Service: 06/25/21 Interval history: patient denies abdominal pain. She still feels weak with walking and has some loose stools. She is now thinking that she may need short-term rehab. Physical Exam Vital Signs: Vital Signs: Last Vital Signs Temp 98.0 F 06/25/21 11:57 Pulse 94 06/25/21 11:57 Resp 20 06/25/21 11:57 BP 131/80 06/25/21 11:57 Pulse Ox 96 06/25/21 11:57 Oxygen Flow Rate 0 06/24/21 16:00 BMI result Body Mass Index 26.9 Const: General: no acute distress, alert and awake Nutritional Appearance: well nourished Orientation/consciousness: patient oriented x3 Limitations: no limitations Resp: Effort & Inspection: normal respiratory effort GI: Other: Much softer and less distended. Positive bowel sounds, nontender to palpation. Skin: General skin exam: no rashes or lesions noted Neuro: General: patient oriented x3 Objective Data Active Medications Albuterol Sulfate (Albuterol Sulfate (0.083%) 2.5 Mg/3 Ml Vial.Neb) 2.5 mg INHA LE Q4H PRN PRN Reason: Shortness Of Breath Last Admin: 06/21/21 04:02 Dose: 2.5 mg Documented by: ARELIS Amlodipine Besylate (Amlodipine Besylate 10 Mg Tablet) 10 mg PO DAILY [facility]; Protocol Anastrozole (Anastrozole 1 Mg Tablet) 1 mg PO DAILY [facility] Last Admin: 06/25/21 08:52 Dose: 1 mg Documented by: CHERYLE Gabapentin (Gabapentin 300 Mg Capsule) 900 mg PO TID [facility] Last Admin: 06/25/21 08:59 Dose: 900 mg Documented by: CHERYLE Hydralazine HCl (Hydralazine Hcl 20 Mg/Ml Vial) 10 mg IVPUSH Q6H PRN; Protocol PRN Reason: ELDER>170/90 Last Admin: 06/25/21 04:24 Dose: 10 mg Documented by: FANNY Lisinopril (Lisinopril 20 Mg Tablet) 20 mg PO DAILY [facility]; Protocol Last Admin: 06/25/21 08:52 Dose: 20 mg Documented by: CHERYLE Montelukast Sodium (Montelukast Sodium 10 Mg Tablet) 10 mg PO BEDTIME [facility] Last Admin: 06/24/21 21:46 Dose: 10 mg Documented by: FANNY Omeprazole (Omeprazole 20 Mg Capsule.) 20 mg PO DAILY@0630 [facility] Last Admin: 06/25/21 04:36 Dose: 20 mg Documented by: FANNY Ondansetron HCl (Ondansetron Hcl 4 Mg/2 Ml Vial) 4 mg IVPUSH Q8H PRN PRN Reason: Nausea Last Admin: 06/21/21 09:44 Dose: 4 mg Documented by: THOMAS Paroxetine HCl (Paroxetine Hcl 10 Mg Tablet) 10 mg PO DAILY [facility] Last Admin: 06/25/21 08:52 Dose: 10 mg Documented by: CHERYLE Paroxetine HCl (Paroxetine Hcl 40 Mg Tablet) 40 mg PO DAILY [facility] Last Admin: 06/25/21 08:52 Dose: 40 mg Documented by: CHERYLE Pharmacy Consult (Consult Rx Perform Med Rec) 1 each MISCELLANE ONCE PRN PRN Reason: Consult order Pharmacy Consult (Consult Rx Perform Med Rec) 1 each MISCELLANE ONCE PRN PRN Reason: Consult order Polyethylene Glycol (Polyethylene Glycol 3350 17 Gm Powd.Pack) 17 gm PO BID [facility] Last Admin: 06/25/21 09:03 Dose: Not Given Documented by: CHERYLE Non-Admin Reason: mx BM's Potassium Chloride (Potassium Chloride Packet 20 Meq Packet) 40 meq PO TID [facility] Last Admin: 06/25/21 10:32 Dose: 40 meq Documented by: CHERYLE Sodium Chloride (0.9 % Sodium Chloride Flush 3 Ml Syringe) 3 ml IVFLUSH QSHIFT [facility] Last Admin: 06/25/21 08:52 Dose: 3 ml Documented by: CHERYLE Zolpidem Tartrate (Zolpidem Tartrate 5 Mg Tablet) 5 mg PO BEDTIME PRN PRN Reason: Insomnia Last Admin: 06/22/21 21:11 Dose: 5 mg Documented by: TASHI Labs CBC & Chem 7: 06/21/21 05:37 06/25/21 09:36 Labs: Laboratory Results - last 24 hr 06/25/21 09:36 Anion Gap 10 L Estim Creat Clear Calc 81.9 Estimated GFR > 60 Random Glucose 135 H Calcium 8.8 Magnesium 1.6 Procedures Date of Service Date of Service: 06/25/21 Progress Note: A&P Assessment and plan (1) Anastomotic stricture of colorectal region: Status: Acute Plan 66-year-old female patient status post sigmoid colectomy with rectopexy for rectal prolapse in 2020 now presenting with a colonic stricture.? She underwent a balloon dilation 5 days ago. She continues to do well and tolerating a soft diet. Now passing bowel movements and more flatus. Her abdomen is much less distended this morning and is soft. She is now interested in pursuing short-term rehab. Time Spent With Patient Time: Total time spent is greater than 50% in coordination of care (as documented) at patient's floor/unit and/or counseling patient: Quality Stroke Does the patient have a stroke diagnosis?: No VTE Prior VTE?: No VTE Risk Level:: Surgical - high VTE Device Contraindication: N/A - Device Ordered VTE Drug Contraindication: N/A - Med Ordered
--- NOTE | 2021-06-25 15:30 | MHC.CM.PN ---
EMR REVIEWED, PT REPORTING TO SURGICAL SHE FEELS LIKE SHE NEEDS STR, CM MET W/PT TO DISCUSS PREFERENCES AND PT REPORTS SHE PREFERS [facility] SHE HAS 3 FRIENDS WHO WERE THERE AND VERY HAPPY W/THE SERVICE THERE. REFERRAL TO BE PLACED AND CM WILL CONT TO FOLLOW D/C PLANS.
[2021-06-25] MEDS: polyethylene glycoL 3350 17 GM POWD.PACK PO (20:39)
[2021-06-25] MEDS: Montelukast Sodium 10 MG TABLET PO (20:44)
[2021-06-25 21:35] LABS: Anion Gap 9 (12-20); Blood Urea Nitrogen 8 mg/dL (9-16); Calcium 8.4 mg/dL (8.4-10.2); Carbon Dioxide 23 mmol/L (22-29); Chloride 108 mmol/L (96-108); Creatinine Clr Calc Pharmacy 81.9; Estimated Glomerular Filt Rate > 60; Glucose Random 128 mg/dL (60-115); Potassium 2.7 mmol/L (3.3-5.1); Sodium 137 mmol/L (135-145)
[2021-06-26] VITALS (8 sets, daily range): BP systolic 121–178; BP diastolic 82–104; PULSE 82–106; RESP 16–20; TEMP 36.5–37.5; O2SAT 93–98
[2021-06-26] MEDS: Potassium Chloride/H20 10 MEQ/100 ML PIGGYBACK 100 MEQ IV ×4 (00:36→11:17)
[2021-06-26] MEDS: Omeprazole 20 MG CAPSULE.DR PO (04:47)
[2021-06-26 07:25] LABS: Anion Gap 7 (12-20); Blood Urea Nitrogen 7 mg/dL (9-16); Calcium 8.3 mg/dL (8.4-10.2); Carbon Dioxide 26 mmol/L (22-29); Chloride 108 mmol/L (96-108); Creatinine Clr Calc Pharmacy 97.8; Estimated Glomerular Filt Rate > 60; Glucose Random 112 mg/dL (60-115); Potassium 2.3 mmol/L (3.3-5.1); Sodium 139 mmol/L (135-145)
[2021-06-26] MEDS: amLODIPine Besylate 10 MG TABLET PO (07:43)
[2021-06-26] MEDS: Anastrozole 1 MG TABLET PO (07:43)
[2021-06-26] MEDS: Gabapentin 300 MG CAPSULE 900 MG PO ×3 (07:44→21:26)
[2021-06-26] MEDS: PARoxetine HCL 10 MG TABLET PO (07:44)
[2021-06-26] MEDS: PARoxetine HCL 40 MG TABLET PO (07:44)
[2021-06-26] MEDS: lisinopriL 20 MG TABLET PO (07:44)
[2021-06-26] MEDS: 0.9 % Sodium Chloride Flush 3 ML SYRINGE IVFLUSH ×2 (07:45→16:16)
[2021-06-26] MEDS: Potassium Chloride Packet 20 MEQ PACKET 40 MEQ PO ×2 (07:46→16:16)
[2021-06-26] MEDS: Acetaminophen 325 MG TABLET 650 MG PO ×2 (08:01→16:26)
--- NOTE | 2021-06-26 11:13 | P.PNIM_ITS ---
Subjective Subjective Date of Service: 06/26/21 Interval History: feeling better this morning feels abdomen is less distended, having frequent bowel movements in last several days, less frequent bowel movement this morning, denies nausea vomiting tolerating diet, noted to have low potassium in last few days. Review of Systems [employer] no headache no dizziness CVS no chest pain, no palpitation respiratory no cough, no shortness of breath Review of Systems: Yes all other systems are reviewed and are negative Physical Exam Vital Signs: Vital Signs: Last Vital Signs Temp 98.1 F 06/26/21 08:00 Pulse 104 H 06/26/21 08:30 Resp 16 06/26/21 08:00 BP 164/94 H 06/26/21 08:00 Pulse Ox 98 06/26/21 08:30 Oxygen Flow Rate 0 06/24/21 16:00 BMI result Body Mass Index 26.9 Const: Other: General - awake alert x3 no acute distress, appears comfortable neck no JVD Cardiovascular - regular rate and rhythm, S1-S2 Lungs - dim sounds at bases Abdomen - soft, less distended, bowel sounds audible Extremities - no edema bilaterally Neuro - awake and alert, no focal deficits Skin no rash psych appropriate affect Objective Data Active Medications Acetaminophen (Acetaminophen 325 Mg Tablet) 650 mg PO Q6H PRN PRN Reason: Pain, Mild (Pain Scale 1-3) Last Admin: 06/26/21 08:01 Dose: 650 mg Documented by: CHERYLE Albuterol Sulfate (Albuterol Sulfate (0.083%) 2.5 Mg/3 Ml Vial.Neb) 2.5 mg INHALE Q4H PRN PRN Reason: Shortness Of Breath Last Admin: 06/21/21 04:02 Dose: 2.5 mg Documented by: ARELIS Amlodipine Besylate (Amlodipine Besylate 10 Mg Tablet) 10 mg PO DAILY [facility]; Protocol Last Admin: 06/26/21 07:43 Dose: 10 mg Documented by: CHERYLE Anastrozole (Anastrozole 1 Mg Tablet) 1 mg PO DAILY [facility] Last Admin: 06/26/21 07:43 Dose: 1 mg Documented by: CHERYLE Gabapentin (Gabapentin 300 Mg Capsule) 900 mg PO TID [facility] Last Admin: 06/26/21 07:44 Dose: 900 mg Documented by: CHERYLE Hydralazine HCl (Hydralazine Hcl 20 Mg/Ml Vial) 10 mg IVPUSH Q6H PRN; Protocol PRN Reason: ELDER>170/90 Last Admin: 06/25/21 04:24 Dose: 10 mg Documented by: FANNY Lisinopril (Lisinopril 20 Mg Tablet) 20 mg PO DAILY [facility]; Protocol Last Admin: 06/26/21 07:44 Dose: 20 mg Documented by: CHERYLE Montelukast Sodium (Montelukast Sodium 10 Mg Tablet) 10 mg PO BEDTIME [facility] Last Admin: 06/25/21 20:44 Dose: 10 mg Documented by: CHARLY Omeprazole (Omeprazole 20 Mg Capsule.Dr) 20 mg PO DAILY@0630 [facility] Last Admin: 06/26/21 04:47 Dose: 20 mg Documented by: CHARLY Ondansetron HCl (Ondansetron Hcl 4 Mg/2 Ml Vial) 4 mg IVPUSH Q8H PRN PRN Reason: Nausea Last Admin: 06/21/21 09:44 Dose: 4 mg Documented by: THOMAS Paroxetine HCl (Paroxetine Hcl 10 Mg Tablet) 10 mg PO DAILY [facility] Last Admin: 06/26/21 07:44 Dose: 10 mg Documented by: CHERYLE Paroxetine HCl (Paroxetine Hcl 40 Mg Tablet) 40 mg PO DAILY [facility] Last Admin: 06/26/21 07:44 Dose: 40 mg Documented by: CHERYLE Pharmacy Consult (Consult Rx Perform Med Rec) 1 each MISCELLANE ONCE PRN PRN Reason: Consult order Pharmacy Consult (Consult Rx Perform Med Rec) 1 each MISCELLANE ONCE PRN PRN Reason: Consult order Potassium Chloride (Potassium Chloride Packet 20 Meq Packet) 40 meq PO TID [facility] Last Admin: 06/26/21 07:46 Dose: 40 meq Documented by: CHERYLE Sodium Chloride (0.9 % Sodium Chloride Flush 3 Ml Syringe) 3 ml IVFLUSH QSHIFT [facility] Last Admin: 06/26/21 07:45 Dose: 3 ml Documented by: CHERYLE Zolpidem Tartrate (Zolpidem Tartrate 5 Mg Tablet) 5 mg PO BEDTIME PRN PRN Reason: Insomnia Last Admin: 06/22/21 21:11 Dose: 5 mg Documented by: CASTILM Labs CBC & Chem 7: 06/21/21 05:37 06/26/21 06:21 Labs: Laboratory Results - last 24 hr 06/25/21 06/26/21 20:58 06:21 Anion Gap 9 L 7 L Estim Creat Clear Calc 81.9 97.8 Estimated GFR > 60 > 60 Random Glucose 128 H 112 Calcium 8.4 8.3 L Assessment and Plan (1) Colonic stricture: Status: Acute Plan 66 yo F with a PMH of HTN, asthma, spastic CP, breast ca, prior sigmoid colectomy who is admitted for large bowel obstruction. Medical consult requested for medical mgmt. 1. HTN- -BP better controlled in last 24 hours with increased dose of lisinopril to 20 mg, and continue Norvasc 10 mg daily, follow BP closely 2. Chronic asthma no acute exacerbation, continue baseline meds 3. Abdominal pain secondary to large bowel obstruction due to colonic stricture underwent balloon dilatation [address] Gillis , less abdominal distention and pain, persistent diarrhea will DC MiraLax, tolerating a soft diet, abdomen is much less distended this morning and is soft. ?will need repat colonocopy on outpatient basis, need close follow-up with Dr. Gillis common need to resume MiraLax if noted to have constipation. 4. Spastic CP resolved, continue baseline meds 5. HypOkalemia- potassium remains low at 2.3 likely due to GI loss aggressively replete potassium ,Both IV and by mouth and follow labs closely. DVT prophylaxis: compression device need continued inpatient hospitalization due to persistent diarrhea and hypokalemia, follow discharge plan as per General surgery, patient requesting for rehab. Quality Stroke Does the patient have a stroke diagnosis?: No VTE Prior VTE?: No VTE Risk Level:: Surgical - high VTE Device Contraindication: N/A - Device Ordered VTE Drug Contraindication: N/A - Med Ordered
--- NOTE | 2021-06-26 12:28 | P.DS_ITS ---
DS: Providers Provider Date of Service: 06/30/21 <Manuel Jose MD - Last Filed: 07/01/21 07:59> Date of admission: 06/18/21 19:12 <Manuel Jose MD - Last Filed: 07/01/21 07:59> Date of discharge: 06/30/21 <Manuel Jose MD - Last Filed: 07/01/21 07:59> Primary care physician: Polo Nascimento PA-C <Manuel Jose MD - Last Filed: 07/01/21 07:59> Admitting clinician: Manuel Jose <Manuel Jose MD - Last Filed: 07/01/21 07:59> Consults: 06/18/21 19:08 Consult to Gastroenterology Routine Consulting Provider: Tin Gillis Reason for consultation: colonic stricture Has provider been notified: No 06/18/21 19:46 Consult to Hospitalist Routine Consulting Provider: Hospitalist Reason For Exam: Colonic stricture, medical management <Manuel Jose MD - Last Filed: 07/01/21 07:59> Discharging clinician: Manuel Jose <Manuel Jose MD - Last Filed: 07/01/21 07:59> DS: Transfer Hospital Acceptance Reason for Transfer: Short term rehabilitation, physical therapy <3o days <Manuel Jose MD - Last Filed: 07/01/21 07:59> Name of Facility: [place] [place] <Manuel Jose MD - Last Filed: 07/01/21 07:59> DS: Diagnosis Discharge Diagnosis (1) Colonic stricture: Status: Acute <Manuel Jose MD - Last Filed: 07/01/21 07:59> (2) Cerebral palsy: Status: Acute <Manuel Jose MD - Last Filed: 07/01/21 07:59> (3) MDD (major depressive disorder): Status: Acute <Manuel Jose MD - Last Filed: 07/01/21 07:59> DS: Summary Hospital Course Hospital Course: Nayla Lepe is a 66 year old female with a previous history of rectal prolapse,? Breast cancer, spastic cerebral palsy and asthma,? S/P sigmoid colectomy with rectopexy in 2020 now presenting on 06/19/2021 with a progressive history of abdominal distension, nausea, vomiting, and abdominal pain.? Patient's bowels have been becoming more difficult to pass.? Patient reports a 2 weeks history of increased abdominal pain throughout the abdomen.? She subsequently presented to the emergency department for further evaluation.? She was noted be diffusely distended on examination.? CT of the abdomen and pelvis revealed colonic distension with a possible stricture at the colorectal anastomsis. She was admitted for further management of this? Large bowel obstruction. She was made NPO and started on IV fluids. A nasogastric tube was inserted and GI consultation obtained. She was evaluated by Dr. Gillis and decision made to proceed to colonoscopy for dilation. During colonoscopy she was identified as having a stricture at approximately the level of the colorectal anastomosis. She underwent a balloon dilation with production of a large amount of liquid stool. She initially continued to have abdominal distension, nausea, and vomiting therefore the nasogastric tube was left in place. Over the next 24 hours however she did improve with continued bowel movements and flatus. The nasogastric tube was removed and she was started on a liquid diet. She reported decreased abdominal pain and no further nausea or vomiting. The patient was kept on MiraLax twice daily to keep her stools loose. The patient began to have frequent loose bowel movements without control. Laboratories revealed a hypokalemia which required potassium boluses. The MiraLax was subsequently held and she reports having more control of her bowels without diarrhea. Patient was started with physical therapy but was found to be weak. As the patient lives alone and cares for herself, she felt she would not be able to manage at home and was agreeable to short-term rehab. She is currently on a soft, low residue diet and is tolerating this well. Her abdomen is soft and nondistended, nontender with normal bowel sounds. The MiraLax may need to be placed on a daily basis and held for diarrhea. The plan is for Dr. Gillis to perform an other colonoscopy with balloon dilation next week. His office will make arrangements for this procedure as a short-stay surgery. pt having some knee pain and swelling on night before dc. has had issues with that knee and sees Dr april Crews and has had ?cortisone shots there in the past. She did well with some oxycodone and ice pack so plan to continue that and then to be racquel kate her doc at [facility]. Anticipated Length of stay in [facility]: < 30 days. Patient will need daily physical therapy. She will need to follow up with Dr. Gillis to arrange repeat colonoscopy. Will need to monitor electrolytes, especially potassium. <Manuel Jose MD - Last Filed: 07/01/21 07:59> Time spent discussing smoking cessation with patient: 3 to 10 minutes <Manuel Jose MD - Last Filed: 07/01/21 07:59> Status at Discharge Functional status at discharge: uses cane/walker <Manuel Jose MD - Last Filed: 07/01/21 07:59> Overall status at discharge: patient is not back to baseline <Manuel Jose MD - Last Filed: 07/01/21 07:59> Time Spent with Patient Time attestation: Total time spent providing and/or coordinating discharge services: <Manuel Jose MD - Last Filed: 07/01/21 07:59> Discharge coordination time: Less than 30 minutes <Manuel Jose MD - Last Filed: 07/01/21 07:59> Quality: Safe Use of Opioids Does Pt have an Active Cancer Diagnosis on the Problem List?: No <Manuel Jose MD - Last Filed: 07/01/21 07:59> Quality: Stroke Does the patient have a stroke diagnosis?: No <Manuel Jose MD - Last Filed: 07/01/21 07:59> Physical Exam Vital Signs: Vital Signs: Last Vital Signs Temp 97.7 F 06/26/21 11:28 Pulse 106 H 06/26/21 11:28 Resp 16 06/26/21 11:28 BP 144/92 H 06/26/21 11:28 Pulse Ox 97 06/26/21 11:28 Oxygen Flow Rate 0 06/24/21 16:00 BMI result Body Mass Index 26.9 <Manuel oJse MD - Last Filed: 07/01/21 07:59> Const: General: comfortable <Manuel Jose MD - Last Filed: 07/01/21 07:59> Nutritional Appearance: well nourished <Manuel Jose MD - Last Filed: 07/01/21 07:59> Orientation/consciousness: patient oriented x3 <Manuel Jose MD - Last Filed: 07/01/21 07:59> Limitations: no limitations <Manuel Jose MD - Last Filed: 07/01/21 07:59> HEENT: Head: Yes normocephalic and Yes atraumatic <Manuel Jose MD - Last Filed: 07/01/21 07:59> Ears: hearing grossly normal bilaterally <Manuel Jose MD - Last Filed: 07/01/21 07:59> Resp: Effort & Inspection: normal respiratory effort, no audible wheezes, no cough and no respiratory distress <Manuel Jose MD - Last Filed: 07/01/21 07:59> GI: Other: Softly distended, non tympanitic, nontender to palpation. Normal bowel sounds <Manuel Jose MD - Last Filed: 07/01/21 07:59> Neuro: General: patient oriented x3 <Manuel Jose MD - Last Filed: 07/01/21 07:59> Extrem: General: No edema <Manuel Jose MD - Last Filed: 07/01/21 07:59> DS: Data Data Completed and Pending Labs on day of discharge: Laboratory Results - last 24 hr 06/25/21 06/26/21 20:58 06:21 Sodium 137 139 Potassium 2.7 L D 2.3 L* Chloride 108 108 Carbon Dioxide 23 26 Anion Gap 9 L 7 L BUN 8 L 7 L Creatinine 0.62 0.52 Estim Creat Clear Calc 81.9 97.8 Estimated GFR > 60 > 60 Random Glucose 128 H 112 Calcium 8.4 8.3 L <Manuel Jose MD - Last Filed: 07/01/21 07:59> Imaging CT scan - abdomen: Radiologist's impression: ITS Impressions Abdomen/Pelvis CT 06/18/21 17:24 IMPRESSION: 1. Marked colonic dilatation. A obstructing rectal lesion cannot be excluded. 2. Bilateral nephrolithiasis and benign hepatic cysts again noted. 3. Two abdominal wall hernias as well as a hiatal hernia larger than previously noted This critical result was discussed with Val CHERY at 6:50 PM on the day of the and it was ascertained that the content and urgency of the report was understood at the time of direct communication. Fleischner guidelines were followed. Head CT 06/19/21 04:20 IMPRESSION: No acute intracranial pathology. Chest X-Ray 06/19/21 19:33 IMPRESSION: Nasogastric tube tip is probably in the esophageal hernia. Low lung volumes. Chest X-Ray 06/21/21 12:30 IMPRESSION: 1. Enteric tube tip appears retracted with tip in the region of the gastroesophageal junction given the moderate hiatal hernia. The side-port is positioned at the level the proximal to mid one third of the esophagus. Advancement is recommended, but correlate with intended positioning. 2. Dilated gas-filled loops of small and large bowel appear mildly increased compared to previous studies <Manuel Jose MD - Last Filed: 07/01/21 07:59> Discharge Plan Discharge Patient Disposition: [facility] <Manuel Jose MD - Last Filed: 07/01/21 07:59> Discharge Diagnosis: colonic stricture, Cerebral Palsy, Weakness from prolonged hospitalization, Depression <Manuel Jose MD - Last Filed: 07/01/21 07:59> Referrals: Kesha Biggs [Outside] - 1 Day ([address] today 06/30/21 with [facility] transport) Polo Nascimento PA-C [Primary Care Provider] - 1 Week Manuel Jose MD [Physician] - 2 Weeks <Manuel Jose MD - Last Filed: 07/01/21 07:59> Discharge Medications: New oxycodone 5 mg tablet 5 mg PO BID PRN (Reason: pain) Qty: 6 0RF Continued paroxetine HCl [Paxil CR] 12.5 mg tablet extended release 24 hr 12.5 mg PO DAILY Qty: 90 3RF Rx Instructions: take with paxil cr 25 (total dose=62.5 mg) paroxetine HCl [Paxil CR] 25 mg tablet extended release 24 hr 50 mg PO DAILY Qty: 180 2RF Rx Instructions: take with paxil cr 12.5 mg gabapentin 300 mg capsule 900 mg PO TID Qty: 270 3RF lisinopril 10 mg tablet 10 mg PO DAILY Qty: 90 1RF ibuprofen 800 mg tablet 800 mg PO TID Qty: 90 1RF anastrozole [Arimidex] 1 mg tablet 1 tab PO DAILY 0RF ferrous sulfate [iron] 325 mg (65 mg iron) Tablet 325 mg PO BID Qty: 60 3RF polyethylene glycol 3350 [Miralax] 17 gram/dose powder 17 g PO DAILY Qty: 510 0RF ondansetron 4 mg tablet,disintegrating 1 tab PO Q6-8H PRN (Reason: nausea/vomiting) 0RF sennosides [Natural Senna Laxative] 8.6 mg tablet 8.6 mg PO BEDTIME PRN (Reason: Constipation) 0RF montelukast 10 mg tablet 10 mg PO BEDTIME 0RF albuterol sulfate 2.5 mg /3 mL (0.083 %) solution for nebulization 2.5 mg inhalation Q4H PRN (Reason: Shortness Of Breath) 0RF omeprazole 20 mg capsule,delayed release(DR/EC) 20 mg PO DAILY 30 Days Qty: 30 3RF <Manuel Jose MD - Last Filed: 07/01/21 07:59> Discharge Orders: Discharge Order (Routine); Ordered 06/28/21 Ordered By: Radha Kurtz <Manuel Jose MD - Last Filed: 07/01/21 07:59> Diet: other <Manuel Jose MD - Last Filed: 07/01/21 07:59> Activity on Discharge: As tolerated <Manuel Jose MD - Last Filed: 07/01/21 07:59> Stand Alone Forms: Patient Portal Discharge page <Manuel Jose MD - Last Filed: 07/01/21 07:59> Activity Restrictions/Additional Instructions: ice pack to right knee several times during the day as needed. oxycodone pain med as needed for knee pain <Manuel Jose MD - Last Filed: 07/01/21 07:59> Care Plan Goals: return to normal activity and diet <Manuel Jose MD - Last Filed: 07/01/21 07:59> Health Concerns: abdominal pain and distension, constipation <Manuel Jose MD - Last Filed: 07/01/21 07:59> Plan of Treatment: Colonoscopy (Dr. Gillis) with balloon dilation <Manuel Jose MD - Last Filed: 07/01/21 07:59> Assessment: Colonic stricture at colorectal anastomsis <Manuel Jose MD - Last Filed: 07/01/21 07:59> Discharge Date/Time: 06/30/21 15:49 <Manuel Jose MD - Last Filed: 07/01/21 07:59>
--- NOTE | 2021-06-26 16:24 | P.PNGS_ITS ---
Subjective Subjective Date of Service: 06/26/21 Interval history: Patient feels much improved today with no abdominal pain better control of her bowels. She denies nausea or vomiting. She has been tolerating a soft diet. Physical Exam Vital Signs: Vital Signs: Last Vital Signs Temp 99.5 F 06/26/21 16:00 Pulse 105 H 06/26/21 16:00 Resp 20 06/26/21 16:00 BP 144/92 H 06/26/21 11:28 Pulse Ox 93 06/26/21 16:00 Oxygen Flow Rate 0 06/24/21 16:00 BMI result Body Mass Index 26.9 Const General: comfortable Nutritional Appearance: well nourished Orientation/consciousness: patient oriented x3 Limitations: no limitations HEENT Head: Yes normocephalic and Yes atraumatic Ears: hearing grossly normal bilaterally Resp Effort & Inspection: normal respiratory effort, no audible wheezes, no cough and no respiratory distress GI Other: Softly distended, non tympanitic, nontender to palpation. Normal bowel sounds Neuro General: patient oriented x3 Extrem General: No edema Objective Data Active Medications Acetaminophen (Acetaminophen 325 Mg Tablet) 650 mg PO Q6H PRN PRN Reason: Pain, Mild (Pain Scale 1-3) Last Admin: 06/26/21 08:01 Dose: 650 mg Documented by: CHERYLE Albuterol Sulfate (Albuterol Sulfate (0.083%) 2.5 Mg/3 Ml Vial.Neb) 2.5 mg INHALE Q4H PRN PRN Reason: Shortness Of Breath Last Admin: 06/21/21 04:02 Dose: 2.5 mg Documented by: ARELIS Amlodipine Besylate (Amlodipine Besylate 10 Mg Tablet) 10 mg PO DAILY [facility]; Protocol Last Admin: 06/26/21 07:43 Dose: 10 mg Documented by: CHERYLE Anastrozole (Anastrozole 1 Mg Tablet) 1 mg PO DAILY [facility] Last Admin: 06/26/21 07:43 Dose: 1 mg Documented by: CHERYLE Gabapentin (Gabapentin 300 Mg Capsule) 900 mg PO TID [facility] Last Admin: 06/26/21 07:44 Dose: 900 mg Documented by: CHERYLE Hydralazine HCl (Hydralazine Hcl 20 Mg/Ml Vial) 10 mg IVPUSH Q6H PRN; Protocol PRN Reason: ELDER>170/90 Last Admin: 06/25/21 04:24 Dose: 10 mg Documented by: FANNY Lisinopril (Lisinopril 20 Mg Tablet) 20 mg PO DAILY [facility]; Protocol Last Admin: 06/26/21 07:44 Dose: 20 mg Documented by: CHERYLE Montelukast Sodium (Montelukast Sodium 10 Mg Tablet) 10 mg PO BEDTIME [facility] Last Admin: 06/25/21 20:44 Dose: 10 mg Documented by: CHARLY Omeprazole (Omeprazole 20 Mg Capsule.Dr) 20 mg PO DAILY@0630 [facility] Last Admin: 06/26/21 04:47 Dose: 20 mg Documented by: CHARLY Ondansetron HCl (Ondansetron Hcl 4 Mg/2 Ml Vial) 4 mg IVPUSH Q8H PRN PRN Reason: Nausea Last Admin: 06/21/21 09:44 Dose: 4 mg Documented by: THOMAS Paroxetine HCl (Paroxetine Hcl 10 Mg Tablet) 10 mg PO DAILY [facility] Last Admin: 06/26/21 07:44 Dose: 10 mg Documented by: CHERYLE Paroxetine HCl (Paroxetine Hcl 40 Mg Tablet) 40 mg PO DAILY [facility] Last Admin: 06/26/21 07:44 Dose: 40 mg Documented by: CHERYLE Pharmacy Consult (Consult Rx Perform Med Rec) 1 each MISCELLANE ONCE PRN PRN Reason: Consult order Pharmacy Consult (Consult Rx Perform Med Rec) 1 each MISCELLANE ONCE PRN PRN Reason: Consult order Potassium Chloride (Potassium Chloride Packet 20 Meq Packet) 40 meq PO TID [facility] Last Admin: 06/26/21 07:46 Dose: 40 meq Documented by: CHERYLE Sodium Chloride (0.9 % Sodium Chloride Flush 3 Ml Syringe) 3 ml IVFLUSH QSHIFT [facility] Last Admin: 06/26/21 07:45 Dose: 3 ml Documented by: CHERYLE Zolpidem Tartrate (Zolpidem Tartrate 5 Mg Tablet) 5 mg PO BEDTIME PRN PRN Reason: Insomnia Last Admin: 06/22/21 21:11 Dose: 5 mg Documented by: TASHI Labs CBC & Chem 7: 06/21/21 05:37 06/26/21 06:21 Labs: Laboratory Results - last 24 hr 06/25/21 06/26/21 20:58 06:21 Anion Gap 9 L 7 L Estim Creat Clear Calc 81.9 97.8 Estimated GFR > 60 > 60 Random Glucose 128 H 112 Calcium 8.4 8.3 L Procedures Date of Service Date of Service: 06/26/21 Progress Note: A&P Assessment and plan (1) Anastomotic stricture of colorectal region: Status: Acute Plan Patient is now much improved with decreased abdominal pain, abdominal distension, and diarrhea. Her hypokalemia is being repleted by medical service. She is due for recheck at 16:00 today. Will obtain a rapid COVID test in preparation for transfer to short-term rehab. Time Spent With Patient Time: Total time spent is greater than 50% in coordination of care (as documented) at patient's floor/unit and/or counseling patient: No Severe Sepsis: No Severe Sepsis Quality Stroke Does the patient have a stroke diagnosis?: No VTE Prior VTE?: No VTE Risk Level:: Surgical - high VTE Device Contraindication: N/A - Device Ordered VTE Drug Contraindication: N/A - Med Ordered
[2021-06-26] MEDS: Potassium Chloride Packet 20 MEQ PACKET 60 MEQ PO (21:27)
[2021-06-26] MEDS: Montelukast Sodium 10 MG TABLET PO (21:27)
[2021-06-27] VITALS (8 sets, daily range): BP systolic 142–160; BP diastolic 64–111; PULSE 78–109; RESP 17–19; TEMP 36.6–37.3; O2SAT 93–98
[2021-06-27] MEDS: 0.9 % Sodium Chloride Flush 3 ML SYRINGE IVFLUSH ×4 (00:55→22:08)
[2021-06-27] MEDS: Omeprazole 20 MG CAPSULE.DR PO (05:39)
[2021-06-27 05:49] LABS: Anion Gap 9 (12-20); Blood Urea Nitrogen 9 mg/dL (9-16); Calcium 8.3 mg/dL (8.4-10.2); Carbon Dioxide 26 mmol/L (22-29); Chloride 106 mmol/L (96-108); Creatinine Clr Calc Pharmacy 97.8; Estimated Glomerular Filt Rate > 60; Glucose Random 106 mg/dL (60-115); Potassium 2.9 mmol/L (3.3-5.1); Sodium 138 mmol/L (135-145)
[2021-06-27] MEDS: Potassium Chloride Packet 20 MEQ PACKET 60 MEQ PO ×3 (09:24→19:42)
[2021-06-27] MEDS: Potassium Chloride/H20 10 MEQ/100 ML PIGGYBACK 100 MEQ IV ×2 (09:24→12:57)
[2021-06-27] MEDS: PARoxetine HCL 40 MG TABLET PO (09:25)
[2021-06-27] MEDS: PARoxetine HCL 10 MG TABLET PO (09:25)
[2021-06-27] MEDS: Gabapentin 300 MG CAPSULE 900 MG PO ×3 (09:25→19:42)
[2021-06-27] MEDS: lisinopriL 20 MG TABLET PO (09:25)
[2021-06-27] MEDS: Anastrozole 1 MG TABLET PO (09:26)
[2021-06-27] MEDS: amLODIPine Besylate 10 MG TABLET PO (09:26)
[2021-06-27] MEDS: Acetaminophen 325 MG TABLET 650 MG PO ×2 (09:45→22:05)
[2021-06-27 10:46] LABS: COVID-19 Test Negative (Negative); IDNOW Serial# 16C4AD1C
--- NOTE | 2021-06-27 11:22 | HO.PM.IMPN ---
Subjective Subjective Date of Service: 06/27/21 Interval History: sitting on commode, had 5 bowel movements yesterday, no further episodes of incontinence of stool, denies nausea, vomiting, no abdominal pain, no nausea, vomiting tolerating chopped diet, no acute overnight issues. Review of Systems Review of Systems: Yes all other systems are reviewed and are negative Physical Exam Vital Signs: Vital Signs: Last Vital Signs Temp 97.8 F 06/27/21 07:56 Pulse 99 06/27/21 07:56 Resp 19 06/27/21 07:56 BP 160/90 H 06/27/21 07:56 Pulse Ox 97 06/27/21 07:56 Oxygen Flow Rate 0 06/24/21 16:00 BMI result Body Mass Index 26.9 Const: Other: General - awake alert x3 no acute distress, appears comfortable neck no JVD Cardiovascular - regular rate and rhythm, S1-S2 Lungs - Clear to auscultation, no wheeze, no crackles. Abdomen -? soft, less distended, bowel sounds audible. Extremities - no edema bilaterally Neuro - awake and alert, no focal deficits Skin no rash psych appropriate affect Objective Data Active Medications Acetaminophen (Acetaminophen 325 Mg Tablet) 650 mg PO Q6H PRN PRN Reason: Pain, Mild (Pain Scale 1-3) Last Admin: 06/27/21 09:45 Dose: 650 mg Documented by: EARL Albuterol Sulfate (Albuterol Sulfate (0.083%) 2.5 Mg/3 Ml Vial.Neb) 2.5 mg INHALE Q4H PRN PRN Reason: Shortness Of Breath Last Admin: 06/21/21 04:02 Dose: 2.5 mg Documented by: ARELIS Amlodipine Besylate (Amlodipine Besylate 10 Mg Tablet) 10 mg PO DAILY [facility]; Protocol Last Admin: 06/27/21 09:26 Dose: 10 mg Documented by: EARL Anastrozole (Anastrozole 1 Mg Tablet) 1 mg PO DAILY [facility] Last Admin: 06/27/21 09:26 Dose: 1 mg Documented by: EARL Gabapentin (Gabapentin 300 Mg Capsule) 900 mg PO TID [facility] Last Admin: 06/27/21 09:25 Dose: 900 mg Documented by: EARL Hydralazine HCl (Hydralazine Hcl 20 Mg/Ml Vial) 10 mg IVPUSH Q6H PRN; Protocol PRN Reason: ELDER>170/90 Last Admin: 06/25/21 04:24 Dose: 10 mg Documented by: FANNY Lisinopril (Lisinopril 20 Mg Tablet) 20 mg PO DAILY [facility]; Protocol Last Admin: 06/27/21 09:25 Dose: 20 mg Documented by: EARL Montelukast Sodium (Montelukast Sodium 10 Mg Tablet) 10 mg PO BEDTIME [facility] Last Admin: 06/26/21 21:27 Dose: 10 mg Documented by: SOHEILA Omeprazole (Omeprazole 20 Mg Capsule.Dr) 20 mg PO DAILY@0630 [facility] Last Admin: 06/27/21 05:39 Dose: 20 mg Documented by: SOHEILA Ondansetron HCl (Ondansetron Hcl 4 Mg/2 Ml Vial) 4 mg IVPUSH Q8H PRN PRN Reason: Nausea Last Admin: 06/21/21 09:44 Dose: 4 mg Documented by: THOMAS Paroxetine HCl (Paroxetine Hcl 10 Mg Tablet) 10 mg PO DAILY [facility] Last Admin: 06/27/21 09:25 Dose: 10 mg Documented by: EARL Paroxetine HCl (Paroxetine Hcl 40 Mg Tablet) 40 mg PO DAILY [facility] Last Admin: 06/27/21 09:25 Dose: 40 mg Documented by: EARL Pharmacy Consult (Consult Rx Perform Med Rec) 1 each MISCELLANE ONCE PRN PRN Reason: Consult order Pharmacy Consult (Consult Rx Perform Med Rec) 1 each MISCELLANE ONCE PRN PRN Reason: Consult order Potassium Chloride (Potassium Chloride Packet 20 Meq Packet) 60 meq PO TID [facility] Last Admin: 06/27/21 09:24 Dose: 60 meq Documented by: EARL Sodium Chloride (0.9 % Sodium Chloride Flush 3 Ml Syringe) 3 ml IVFLUSH QSHIFT [facility] Last Admin: 06/27/21 09:28 Dose: 3 ml Documented by: EARL Zolpidem Tartrate (Zolpidem Tartrate 5 Mg Tablet) 5 mg PO BEDTIME PRN PRN Reason: Insomnia Last Admin: 06/22/21 21:11 Dose: 5 mg Documented by: CASTILM Labs CBC & Chem 7: 06/21/21 05:37 06/27/21 04:21 Labs: Laboratory Results - last 24 hr 06/27/21 06/27/21 04:21 09:55 Anion Gap 9 L Estim Creat Clear Calc 97.8 Estimated GFR > 60 Random Glucose 106 Calcium 8.3 L COVID-19 (CHARLEY) Negative COVID-19 Clin Com See Note Assessment and Plan (1) Colonic stricture: Status: Acute Plan 66 yo F with a PMH of HTN, asthma, spastic CP, breast ca, prior sigmoid colectomy who is admitted for large bowel obstruction. Medical consult requested for medical mgmt. 1. HTN- -BP stable with few high blood pressure reading, continue lisinopril 20 mg, and continue Norvasc 10 mg daily, follow BP closely 2. Chronic asthma no acute exacerbation, continue baseline meds 3. Abdominal pain secondary to large bowel obstruction due to colonic stricture underwent balloon dilatation [address] Gillis , less abdominal distention and pain, diarrhea slowing down MiraLax discontinued tolerating chopped diet, abdomen is much less distended ?will need repat colonocopy on outpatient basis, need close follow-up with Dr. Gillis may need to resume MiraLax if noted to have constipation. 4. Spastic CP resolved, continue baseline meds 5. HypOkalemia- potassium remains low at 2.9 but improved since yesterday, likely due to GI loss aggressively replete potassium ,Both IV and by mouth and follow labs at noon if potassium normalized will be able to go to rehab. DVT prophylaxis: compression device need continued inpatient hospitalization due to persistent diarrhea and hypokalemia, follow discharge plan as per General surgery. Quality Stroke Does the patient have a stroke diagnosis?: No VTE Prior VTE?: No VTE Risk Level:: Surgical - high VTE Device Contraindication: N/A - Device Ordered VTE Drug Contraindication: N/A - Med Ordered
--- NOTE | 2021-06-27 12:58 | MHC.CM.PN ---
Addendum entered by Saba Young 06/27/21 15:30: [facility] GO FOR [facility]URANCE [facility] AUTH FOR D/C FOR TOMORROW PER DR ALBERTINA BARONE/DR VALDEZ TO WRITE FOR ANTICIPATED LENGTH OF STAY LESS [place] 30 DAYS SEC (C.P /(LIBVES ALONE , APT , NO SERVICES , DURATION OF HOSPITLA STAY MADE HER WEAKR AND DECONDITIONED AND NOW NEEDS STR) ALSO HX DEPRESSION) NEEDS COVID TEST AND BLS TRANSPORT Original Note: nurse healthcare analyst note electronic meeidcal record reviewed along with case discussed with patient and staff nurse and physical therapist, patient chose referrals to [facility] , [facility] , [facility] and [facility], all declined no bed availability. informed patient of this and also referred to contracted ins facilities [facility] , [facility], [facility]al[facility] steele their decision catalytic case operator to continue to follow
--- NOTE | 2021-06-27 14:36 | P.PNGS_ITS ---
Subjective Subjective Date of Service: 06/27/21 Interval history: No new complaints. Patient is tolerating her diet without increased abdominal pain. She was reporting pain in the left foot. Bowels are more controlled today. Physical Exam Vital Signs: Vital Signs: Last Vital Signs Temp 98.9 F 06/27/21 11:44 Pulse 86 06/27/21 11:44 Resp 19 06/27/21 11:44 BP 150/90 H 06/27/21 11:44 Pulse Ox 98 06/27/21 11:44 Oxygen Flow Rate 0 06/24/21 16:00 BMI result Body Mass Index 26.9 Const General: comfortable Nutritional Appearance: well nourished Orientation/consciousness: patient oriented x3 Limitations: no limitations HEENT Head: Yes normocephalic and Yes atraumatic Ears: hearing grossly normal bilaterally Resp Effort & Inspection: normal respiratory effort, no audible wheezes, no cough and no respiratory distress GI Other: Softly distended, non tympanitic, nontender to palpation. Normal bowel sounds Neuro General: patient oriented x3 Extrem General: No edema Objective Data Active Medications Acetaminophen (Acetaminophen 325 Mg Tablet) 650 mg PO Q6H PRN PRN Reason: Pain, Mild (Pain Scale 1-3) Last Admin: 06/27/21 09:45 Dose: 650 mg Documented by: EARL Albuterol Sulfate (Albuterol Sulfate (0.083%) 2.5 Mg/3 Ml Vial.Neb) 2.5 mg INHALE Q4H PRN PRN Reason: Shortness Of Breath Last Admin: 06/21/21 04:02 Dose: 2.5 mg Documented by: ARELIS Amlodipine Besylate (Amlodipine Besylate 10 Mg Tablet) 10 mg PO DAILY [facility]; Protocol Last Admin: 06/27/21 09:26 Dose: 10 mg Documented by: EARL Anastrozole (Anastrozole 1 Mg Tablet) 1 mg PO DAILY [facility] Last Admin: 06/27/21 09:26 Dose: 1 mg Documented by: EARL Gabapentin (Gabapentin 300 Mg Capsule) 900 mg PO TID [facility] Last Admin: 06/27/21 09:25 Dose: 900 mg Documented by: EARL Hydralazine HCl (Hydralazine Hcl 20 Mg/Ml Vial) 10 mg IVPUSH Q6H PRN; Protocol PRN Reason: ELDER>170/90 Last Admin: 06/25/21 04:24 Dose: 10 mg Documented by: FANNY Lisinopril (Lisinopril 20 Mg Tablet) 20 mg PO DAILY [facility]; Protocol Last Admin: 06/27/21 09:25 Dose: 20 mg Documented by: EARL Montelukast Sodium (Montelukast Sodium 10 Mg Tablet) 10 mg PO BEDTIME [facility] Last Admin: 06/26/21 21:27 Dose: 10 mg Documented by: SOHEILA Omeprazole (Omeprazole 20 Mg Capsule.Dr) 20 mg PO DAILY@0630 [facility] Last Admin: 06/27/21 05:39 Dose: 20 mg Documented by: SOHEILA Ondansetron HCl (Ondansetron Hcl 4 Mg/2 Ml Vial) 4 mg IVPUSH Q8H PRN PRN Reason: Nausea Last Admin: 06/21/21 09:44 Dose: 4 mg Documented by: THOMAS Paroxetine HCl (Paroxetine Hcl 10 Mg Tablet) 10 mg PO DAILY [facility] Last Admin: 06/27/21 09:25 Dose: 10 mg Documented by: EARL Paroxetine HCl (Paroxetine Hcl 40 Mg Tablet) 40 mg PO DAILY [facility] Last Admin: 06/27/21 09:25 Dose: 40 mg Documented by: EARL Pharmacy Consult (Consult Rx Perform Med Rec) 1 each MISCELLANE ONCE PRN PRN Reason: Consult order Pharmacy Consult (Consult Rx Perform Med Rec) 1 each MISCELLANE ONCE PRN PRN Reason: Consult order Potassium Chloride (Potassium Chloride Packet 20 Meq Packet) 60 meq PO TID [facility] Last Admin: 06/27/21 09:24 Dose: 60 meq Documented by: EARL Sodium Chloride (0.9 % Sodium Chloride Flush 3 Ml Syringe) 3 ml IVFLUSH QSHIFT [facility] Last Admin: 06/27/21 09:28 Dose: 3 ml Documented by: EARL Zolpidem Tartrate (Zolpidem Tartrate 5 Mg Tablet) 5 mg PO BEDTIME PRN PRN Reason: Insomnia Last Admin: 06/22/21 21:11 Dose: 5 mg Documented by: CASTILM Labs CBC & Chem 7: 06/21/21 05:37 06/27/21 04:21 Labs: Laboratory Results - last 24 hr 06/27/21 06/27/21 04:21 09:55 Anion Gap 9 L Estim Creat Clear Calc 97.8 Estimated GFR > 60 Random Glucose 106 Calcium 8.3 L COVID-19 (CHARLEY) Negative COVID-19 Clin Com See Note Procedures Date of Service Date of Service: 06/27/21 Progress Note: A&P Assessment and plan (1) Cerebral palsy: Status: Acute (2) Colonic stricture: Status: Acute Plan Patient continues to feel improvement in her abdominal symptoms. She is tolerating her diet and bowels continue to move several times daily. Potassium continues to be a an issue and is being managed by the hospitalist team. Once this is resolved the patient will be ready for discharge to short-term rehab. Continue physical therapy while in house. Time Spent With Patient Time: Total time spent is greater than 50% in coordination of care (as documented) at patient's floor/unit and/or counseling patient: Quality Stroke Does the patient have a stroke diagnosis?: No VTE Prior VTE?: No VTE Risk Level:: Surgical - high VTE Device Contraindication: N/A - Device Ordered VTE Drug Contraindication: N/A - Med Ordered
[2021-06-27 15:21] LABS: Potassium 3.1 mmol/L (3.3-5.1)
[2021-06-27] MEDS: Montelukast Sodium 10 MG TABLET PO (19:42)
[2021-06-28 03:42] VITALS: BP 161/92; PULSE 86; RESP 16; TEMP 36; O2SAT 95
[2021-06-28] MEDS: Omeprazole 20 MG CAPSULE.DR PO (04:44)
[2021-06-28] MEDS: Acetaminophen 325 MG TABLET 650 MG PO ×2 (06:33→16:57)
[2021-06-28 06:54] LABS: Anion Gap 10 (12-20); Blood Urea Nitrogen 7 mg/dL (9-16); Calcium 8.2 mg/dL (8.4-10.2); Carbon Dioxide 26 mmol/L (22-29); Chloride 104 mmol/L (96-108); Creatinine Clr Calc Pharmacy 101.7; Estimated Glomerular Filt Rate > 60; Glucose Random 100 mg/dL (60-115); Sodium 137 mmol/L (135-145)
[2021-06-28 07:05] VITALS: BP 159/89; PULSE 103; RESP 20; TEMP 37.4; O2SAT 94
[2021-06-28 08:02] LABS: Magnesium 1.3 mg/dL (1.6-2.6)
[2021-06-28] MEDS: Anastrozole 1 MG TABLET PO (08:15)
[2021-06-28] MEDS: PARoxetine HCL 40 MG TABLET PO (08:16)
[2021-06-28] MEDS: lisinopriL 20 MG TABLET PO (08:16)
[2021-06-28] MEDS: PARoxetine HCL 10 MG TABLET PO (08:16)
[2021-06-28] MEDS: Gabapentin 300 MG CAPSULE 900 MG PO ×3 (08:16→20:32)
[2021-06-28] MEDS: amLODIPine Besylate 10 MG TABLET PO (08:16)
[2021-06-28] MEDS: Potassium Chloride Packet 20 MEQ PACKET 60 MEQ PO ×3 (08:16→20:28)
[2021-06-28] MEDS: traMADoL HCL 50 MG TABLET 25 MG PO (09:45)
[2021-06-28] MEDS: Magnesium Sulfate/H2O 2 GM/50 ML PIGGYBACK IV ×2 (09:56→16:49)
[2021-06-28 11:09] VITALS: BP 139/85; PULSE 114; RESP 23; TEMP 36.9; O2SAT 94
--- NOTE | 2021-06-28 11:22 | HO.PM.IMPN ---
Subjective Subjective Date of Service: 06/28/21 Interval History: seen and examined this morning follow up surgical consultation, following for low potassium no overnight events patient reporting right knee pain this morning Review of Systems Review of Systems: Yes all other systems are reviewed and are negative Constitutional Constitutional: Denies chills and Denies fever(s) Cardiovascular Cardiovascular: Denies chest pain, Denies palpitations and Denies dyspnea Respiratory Respiratory: Denies cough and Denies dyspnea Endocrine Endocrine: Denies palpitations Physical Exam Vital Signs: Vital Signs: Last Vital Signs Temp 98.5 F 06/28/21 11:09 Pulse 114 H 06/28/21 11:09 Resp 23 H 06/28/21 11:09 BP 139/85 06/28/21 11:09 Pulse Ox 94 06/28/21 11:09 Oxygen Flow Rate 0 06/24/21 16:00 BMI result Body Mass Index 26.9 Const: General: cooperative, alert and awake Nutritional Appearance: average body habitus Resp: Effort & Inspection: normal respiratory effort and able to speak in complete sentences Cardio: Rate: regular rate Heart sounds: S1 normal heart sound present and S2 normal heart sound present GI: Palpation (GI): Soft to palpation and nontender Extrem: Other: moving all extremities, right knee no erythema or ecchymosis Objective Data Active Medications Acetaminophen (Acetaminophen 325 Mg Tablet) 650 mg PO Q6H PRN PRN Reason: Pain, Mild (Pain Scale 1-3) Last Admin: 06/28/21 06:33 Dose: 650 mg Documented by: CHARLY Albuterol Sulfate (Albuterol Sulfate (0.083%) 2.5 Mg/3 Ml Vial.Neb) 2.5 mg INHALE Q4H PRN PRN Reason: Shortness Of Breath Last Admin: 06/21/21 04:02 Dose: 2.5 mg Documented by: ARELIS Amlodipine Besylate (Amlodipine Besylate 10 Mg Tablet) 10 mg PO DAILY [facility]; Protocol Last Admin: 06/28/21 08:16 Dose: 10 mg Documented by: EARL Anastrozole (Anastrozole 1 Mg Tablet) 1 mg PO DAILY [facility] Last Admin: 06/28/21 08:15 Dose: 1 mg Documented by: EARL Gabapentin (Gabapentin 300 Mg Capsule) 900 mg PO TID [facility] Last Admin: 06/28/21 08:16 Dose: 900 mg Documented by: EARL Hydralazine HCl (Hydralazine Hcl 20 Mg/Ml Vial) 10 mg IVPUSH Q6H PRN; Protocol PRN Reason: ELDER>170/90 Last Admin: 06/25/21 04:24 Dose: 10 mg Documented by: FANNY Lisinopril (Lisinopril 20 Mg Tablet) 20 mg PO DAILY [facility]; Protocol Last Admin: 06/28/21 08:16 Dose: 20 mg Documented by: EARL Montelukast Sodium (Montelukast Sodium 10 Mg Tablet) 10 mg PO BEDTIME [facility] Last Admin: 06/27/21 19:42 Dose: 10 mg Documented by: CHARLY Omeprazole (Omeprazole 20 Mg Capsule.Dr) 20 mg PO DAILY@0630 [facility] Last Admin: 06/28/21 04:44 Dose: 20 mg Documented by: CHARLY Ondansetron HCl (Ondansetron Hcl 4 Mg/2 Ml Vial) 4 mg IVPUSH Q8H PRN PRN Reason: Nausea Last Admin: 06/21/21 09:44 Dose: 4 mg Documented by: THOMAS Paroxetine HCl (Paroxetine Hcl 10 Mg Tablet) 10 mg PO DAILY [facility] Last Admin: 06/28/21 08:16 Dose: 10 mg Documented by: EARL Paroxetine HCl (Paroxetine Hcl 40 Mg Tablet) 40 mg PO DAILY [facility] Last Admin: 06/28/21 08:16 Dose: 40 mg Documented by: EARL Pharmacy Consult (Consult Rx Perform Med Rec) 1 each MISCELLANE ONCE PRN PRN Reason: Consult order Pharmacy Consult (Consult Rx Perform Med Rec) 1 each MISCELLANE ONCE PRN PRN Reason: Consult order Potassium Chloride (Potassium Chloride Packet 20 Meq Packet) 60 meq PO TID [facility] Last Admin: 06/28/21 08:16 Dose: 60 meq Documented by: EARL Sodium Chloride (0.9 % Sodium Chloride Flush 3 Ml Syringe) 3 ml IVFLUSH QSHIFT [facility] Last Admin: 06/28/21 10:35 Dose: Not Given Documented by: EARL Non-Admin Reason: IV Running Zolpidem Tartrate (Zolpidem Tartrate 5 Mg Tablet) 5 mg PO BEDTIME PRN PRN Reason: Insomnia Last Admin: 06/22/21 21:11 Dose: 5 mg Documented by: TASHI Labs CBC & Chem 7: 06/21/21 05:37 06/28/21 05:23 Labs: Laboratory Results - last 24 hr 06/28/21 05:23 Anion Gap 10 L Estim Creat Clear Calc 101.7 Estimated GFR > 60 Random Glucose 100 Calcium 8.2 L Magnesium 1.3 L* Assessment and Plan (1) Hypokalemia: Status: Acute Plan 66 yo F with a PMH of HTN, asthma, spastic CP, breast ca, prior sigmoid colectomy who is admitted for large bowel obstruction. Medical consult requested for medical mgmt. HypOkalemia/hypomagnesemia potassium remains low at 3.0 magnesium checked and also low at 1.3 -replace magnesium IV 2 gm -continue potassium replacement HTN BP stable with few high blood pressure reading continue lisinopril 20 mg, and Norvasc 10 mg daily follow BP closely Chronic asthma no acute exacerbation, continue baseline meds Abdominal pain secondary to large bowel obstruction due to colonic stricture underwent balloon dilatation [address] Gillis , less abdominal distention and pain, diarrhea slowing down MiraLax discontinued tolerating chopped diet will need repeat colonocopy on outpatient basis, need close follow-up with Dr. Gillis may need to resume MiraLax if noted to have constipation. Spastic CP continue baseline meds Mood continue paxil DVT prophylaxis: compression device Attending: dr. Perez need continued inpatient hospitalization due to persistent diarrhea and hypokalemia, follow discharge plan as per General surgery. Quality Stroke Does the patient have a stroke diagnosis?: No VTE Prior VTE?: No VTE Risk Level:: Surgical - high VTE Device Contraindication: N/A - Device Ordered VTE Drug Contraindication: N/A - Med Ordered
[2021-06-28] MEDS: oxyCODONE HCl Immed Release 5 MG TABLET PO (12:01)
--- NOTE | 2021-06-28 15:05 | MHC.CM.PN ---
Addendum entered by Edyta Oakes 06/30/21 08:29: PTS 06/28/21 DISCHARGE WAS CANCELLED DUE TO CONCERNING LABS. [place] AND [facility] WERE INFORMED VIA TELEPHONE CALL Addendum entered by Edyta Oakes 06/28/21 16:12: CM MET WITH PT TO INFORM HER THE AMBULANCE WOULD BE LATE SHE REPORTS UNDERSTANDING AND AGREEMENT WITH DC PLAN AND TIME Original Note: PT WILL DC TO [facility] TODAY FOR STR. BLS REFERRAL MADE HOWEVER THEY ARE UNAVAILABLE UNTIL AT LEAST 1800 HOURS SNF INFORMED
[2021-06-28 16:00] VITALS: O2SAT 93
[2021-06-28 16:16] LABS: Potassium 2.7 mmol/L (3.3-5.1)
[2021-06-28] MEDS: 0.9 % Sodium Chloride Flush 3 ML SYRINGE IVFLUSH (16:40)
[2021-06-28 19:20] VITALS: BP 134/62; PULSE 113; RESP 18; TEMP 36.9; O2SAT 97
[2021-06-28] MEDS: Montelukast Sodium 10 MG TABLET PO (20:28)
--- NOTE | 2021-06-28 20:49 | PC.NURSE ---
P patient reported diarrhea, I VIK Cervantes made aware E stool for c-diff ordered,discharge cancelled due to electrolyte imbalance
[2021-06-28 22:45] LABS: CDiff Gene PCR NEGATIVE (Negative)
[2021-06-29] VITALS (7 sets, daily range): BP systolic 137–161; BP diastolic 71–94; PULSE 91–106; RESP 15–20; TEMP 36.3–37.1; O2SAT 94–97
[2021-06-29] MEDS: 0.9 % Sodium Chloride Flush 3 ML SYRINGE IVFLUSH ×4 (00:52→20:53)
[2021-06-29] MEDS: Acetaminophen 325 MG TABLET 650 MG PO ×2 (05:43→15:13)
[2021-06-29] MEDS: Omeprazole 20 MG CAPSULE.DR PO (05:43)
[2021-06-29 07:15] LABS: Anion Gap 8 (12-20); Blood Urea Nitrogen 5 mg/dL (9-16); Calcium 8.1 mg/dL (8.4-10.2); Carbon Dioxide 25 mmol/L (22-29); Chloride 104 mmol/L (96-108); Creatinine Clr Calc Pharmacy 97.8; Estimated Glomerular Filt Rate > 60; Glucose Random 153 mg/dL (60-115); Magnesium 1.7 mg/dL (1.6-2.6); Potassium 2.4 mmol/L (3.3-5.1); Sodium 135 mmol/L (135-145)
[2021-06-29] MEDS: Magnesium Sulfate/H2O 2 GM/50 ML PIGGYBACK IV (07:54)
[2021-06-29] MEDS: PARoxetine HCL 40 MG TABLET PO (07:54)
[2021-06-29] MEDS: Anastrozole 1 MG TABLET PO (07:54)
[2021-06-29] MEDS: lisinopriL 20 MG TABLET PO (07:54)
[2021-06-29] MEDS: amLODIPine Besylate 10 MG TABLET PO (07:54)
[2021-06-29] MEDS: Potassium Chloride Packet 20 MEQ PACKET 60 MEQ PO ×2 (07:54→13:25)
[2021-06-29] MEDS: PARoxetine HCL 10 MG TABLET PO (07:54)
[2021-06-29] MEDS: Loperamide HCl 2 MG CAPSULE PO (08:09)
[2021-06-29] MEDS: Lidocaine 4 % Patch ADH..PATCH 1 PATCH TRANSDERMA (10:01)
[2021-06-29] MEDS: Potassium Chloride/H20 10 MEQ/100 ML PIGGYBACK 100 MEQ IV ×4 (10:02→15:05)
[2021-06-29] MEDS: Gabapentin 300 MG CAPSULE 900 MG PO ×3 (10:12→20:48)
--- NOTE | 2021-06-29 12:27 | PM.EVENT ---
Event Note Date of Service: 06/29/21 Event Note: Pt seen and examined D/w the medical team Full consult dictated Pt with Severe Hypokalemia - [place] GI losses Low Mag causing low K Suggest Urine spot K - If < 20 - It is GI losses - Replace K + Mag - Can use Slo-mag > 40 Renal losses - Can use Spirinolactone [address] Vaughn
--- NOTE | 2021-06-29 12:28 | P.PNIM_ITS ---
Subjective Subjective Date of Service: 06/29/21 Interval History: seen and examined this morning multiple episodes of diarrhea yesterday Denies abdominal pain, nausea, vomiting Still having some pain in the right knee although improved from yesterday Review of Systems Review of Systems: Yes all other systems are reviewed and are negative Constitutional Constitutional: Denies chills and Denies fever(s) Cardiovascular Cardiovascular: Denies chest pain, Denies palpitations and Denies dyspnea Respiratory Respiratory: Denies cough and Denies dyspnea Gastrointestinal Gastrointestinal: Denies abdominal pain, Reports diarrhea, Denies nausea and Denies vomiting Endocrine Endocrine: Denies palpitations Physical Exam Vital Signs: Vital Signs: Last Vital Signs Temp 97.8 F 06/29/21 12:00 Pulse 91 06/29/21 12:00 Resp 18 06/29/21 12:00 BP 146/79 H 06/29/21 12:00 Pulse Ox 95 06/29/21 12:00 Oxygen Flow Rate 0 06/24/21 16:00 BMI result Body Mass Index 26.9 Const: General: cooperative, alert and awake Nutritional Appearance: average body habitus Resp: Effort & Inspection: normal respiratory effort and able to speak in complete sentences Cardio: Rate: regular rate Heart sounds: S1 normal heart sound present and S2 normal heart sound present GI: Palpation (GI): Soft to palpation and nontender Extrem: Other: moving all extremities, right knee no erythema or ecchymosis, mild swelling. no joint line tenderness Objective Data Active Medications Acetaminophen (Acetaminophen 325 Mg Tablet) 650 mg PO Q6H PRN PRN Reason: Pain, Mild (Pain Scale 1-3) Last Admin: 06/29/21 05:43 Dose: 650 mg Documented by: ADAM Albuterol Sulfate (Albuterol Sulfate (0.083%) 2.5 Mg/3 Ml Vial.Neb) 2.5 mg INHALE Q4H PRN PRN Reason: Shortness Of Breath Last Admin: 06/21/21 04:02 Dose: 2.5 mg Documented by: ARELIS Amlodipine Besylate (Amlodipine Besylate 10 Mg Tablet) 10 mg PO DAILY [facility]; Protocol Last Admin: 06/29/21 07:54 Dose: 10 mg Documented by: MOODY Anastrozole (Anastrozole 1 Mg Tablet) 1 mg PO DAILY [facility] Last Admin: 06/29/21 07:54 Dose: 1 mg Documented by: MOODY Gabapentin (Gabapentin 300 Mg Capsule) 900 mg PO TID [facility] Last Admin: 06/29/21 10:12 Dose: 900 mg Documented by: MOODY Hydralazine HCl (Hydralazine Hcl 20 Mg/Ml Vial) 10 mg IVPUSH Q6H PRN; Protocol PRN Reason: ELDER>170/90 Last Admin: 06/25/21 04:24 Dose: 10 mg Documented by: FANNY Lidocaine (Lidocaine 4 % Patch Adh..Patch) 1 patch TRANSDERMA DAILY [facility]; P rotocol Last Admin: 06/29/21 10:01 Dose: 1 patch Documented by: MOODY Lisinopril (Lisinopril 20 Mg Tablet) 20 mg PO DAILY [facility]; Protocol Last Admin: 06/29/21 07:54 Dose: 20 mg Documented by: MOODY Loperamide HCl (Loperamide Hcl 2 Mg Capsule) 2 mg PO Q4H PRN PRN Reason: Diarrhea Last Admin: 06/29/21 08:09 Dose: 2 mg Documented by: MOODY Montelukast Sodium (Montelukast Sodium 10 Mg Tablet) 10 mg PO BEDTIME [facility] Last Admin: 06/28/21 20:28 Dose: 10 mg Documented by: NIKOLE Omeprazole (Omeprazole 20 Mg Capsule.Dr) 20 mg PO DAILY@0630 [facility] Last Admin: 06/29/21 05:43 Dose: 20 mg Documented by: ADAM Ondansetron HCl (Ondansetron Hcl 4 Mg/2 Ml Vial) 4 mg IVPUSH Q8H PRN PRN Reason: Nausea Last Admin: 06/21/21 09:44 Dose: 4 mg Documented by: THOMAS Paroxetine HCl (Paroxetine Hcl 10 Mg Tablet) 10 mg PO DAILY [facility] Last Admin: 06/29/21 07:54 Dose: 10 mg Documented by: MOODY Paroxetine HCl (Paroxetine Hcl 40 Mg Tablet) 40 mg PO DAILY [facility] Last Admin: 06/29/21 07:54 Dose: 40 mg Documented by: MOODY Pharmacy Consult (Consult Rx Perform Med Rec) 1 each MISCELLANE ONCE PRN PRN Reason: Consult order Pharmacy Consult (Consult Rx Perform Med Rec) 1 each MISCELLANE ONCE PRN PRN Reason: Consult order Potassium Chloride (Potassium Chloride Packet 20 Meq Packet) 60 meq PO TID [facility] Last Admin: 06/29/21 07:54 Dose: 60 meq Documented by: MOODY Sodium Chloride (0.9 % Sodium Chloride Flush 3 Ml Syringe) 3 ml IVFLUSH QSHIFT [facility] Last Admin: 06/29/21 07:55 Dose: 3 ml Documented by: MOODY Zolpidem Tartrate (Zolpidem Tartrate 5 Mg Tablet) 5 mg PO BEDTIME PRN PRN Reason: Insomnia Last Admin: 06/22/21 21:11 Dose: 5 mg Documented by: TASHI Labs CBC & Chem 7: 06/21/21 05:37 06/29/21 06:29 Labs: Laboratory Results - last 24 hr 06/28/21 06/29/21 21:21 06:29 Anion Gap 8 L Estim Creat Clear Calc 97.8 Estimated GFR > 60 Random Glucose 153 H Calcium 8.1 L Magnesium 1.7 C. difficile Tox B Gene NEGATIVE Assessment and Plan (1) Hypokalemia: Status: Acute Plan 66 yo F with a PMH of HTN, asthma, spastic CP, breast ca, prior sigmoid colectomy who is admitted for large bowel obstruction. Medical consult requested for medical mgmt. HypOkalemia/hypomagnesemia potassium remains low magnesium up to 1.7 Likely r/t GI losses but will check urine potassium to r/o kidney invovlement -replace magnesium IV 2 gm -IV potassium as well as PO -immodium to reduce GI loss -repeat labs this afternoon HTN BP stable with few high blood pressure reading continue lisinopril 20 mg, and Norvasc 10 mg daily follow BP closely Chronic asthma no acute exacerbation, continue baseline meds Abdominal pain secondary to large bowel obstruction due to colonic stricture underwent balloon dilatation [address] Gillis , less abdominal distention and pain, diarrhea slowing down MiraLax discontinued tolerating chopped diet will need repeat colonocopy on outpatient basis, need close follow-up with Dr. Gillis may need to resume MiraLax if noted to have constipation. Spastic CP continue baseline meds Mood continue paxil DVT prophylaxis: compression device Attending: dr. Perez need continued inpatient hospitalization due to persistent diarrhea and hypokalemia, follow discharge plan as per General surgery. Quality Stroke Does the patient have a stroke diagnosis?: No VTE Prior VTE?: No VTE Risk Level:: Surgical - high VTE Device Contraindication: N/A - Device Ordered VTE Drug Contraindication: N/A - Med Ordered
[2021-06-29 15:10] LABS: Potassium Urine Random 12.3 mmol/L
[2021-06-29 15:18] LABS: Potassium 3.9 mmol/L (3.3-5.1)
--- NOTE | 2021-06-29 18:49 | P.PNGS_ITS ---
Subjective Subjective Date of Service: 06/30/21 Interval history: says feeling better knee better not so much diarrhea Physical Exam Vital Signs: Vital Signs: Last Vital Signs Temp 98.7 F 06/29/21 15:11 Pulse 106 H 06/29/21 15:11 Resp 18 06/29/21 15:11 BP 143/90 H 06/29/21 15:11 Pulse Ox 97 06/29/21 15:11 Oxygen Flow Rate 0 06/24/21 16:00 BMI result Body Mass Index 26.9 GI: Other: abdo soft and nontender Objective Data Active Medications Acetaminophen (Acetaminophen 325 Mg Tablet) 650 mg PO Q6H PRN PRN Reason: Pain, Mild (Pain Scale 1-3) Last Admin: 06/29/21 15:13 Dose: 650 mg Documented by: MOODY Albuterol Sulfate (Albuterol Sulfate (0.083%) 2.5 Mg/3 Ml Vial.Neb) 2.5 mg INHALE Q4H PRN PRN Reason: Shortness Of Breath Last Admin: 06/21/21 04:02 Dose: 2.5 mg Documented by: ARELIS Amlodipine Besylate (Amlodipine Besylate 10 Mg Tablet) 10 mg PO DAILY [facility]; Protocol Last Admin: 06/29/21 07:54 Dose: 10 mg Documented by: MOODY Anastrozole (Anastrozole 1 Mg Tablet) 1 mg PO DAILY [facility] Last Admin: 06/29/21 07:54 Dose: 1 mg Documented by: MOODY Gabapentin (Gabapentin 300 Mg Capsule) 900 mg PO TID [facility] Last Admin: 06/29/21 15:06 Dose: 900 mg Documented by: MOODY Hydralazine HCl (Hydralazine Hcl 20 Mg/Ml Vial) 10 mg IVPUSH Q6H PRN; Protocol PRN Reason: ELDER>170/90 Last Admin: 06/25/21 04:24 Dose: 10 mg Documented by: FANNY Lidocaine (Lidocaine 4 % Patch Adh..Patch) 1 patch TRANSDERMA DAILY [facility]; Protocol Last Admin: 06/29/21 10:01 Dose: 1 patch Documented by: MOODY Lisinopril (Lisinopril 20 Mg Tablet) 20 mg PO DAILY [facility]; Protocol Last Admin: 06/29/21 07:54 Dose: 20 mg Documented by: MOODY Loperamide HCl (Loperamide Hcl 2 Mg Capsule) 2 mg PO Q4H PRN PRN Reason: Diarrhea Last Admin: 06/29/21 08:09 Dose: 2 mg Documented by: MOODY Montelukast Sodium (Montelukast Sodium 10 Mg Tablet) 10 mg PO BEDTIME [facility] Last Admin: 06/28/21 20:28 Dose: 10 mg Documented by: NIKOLE Omeprazole (Omeprazole 20 Mg Capsule.Dr) 20 mg PO DAILY@0630 [facility] Last Admin: 06/29/21 05:43 Dose: 20 mg Documented by: ADAM Ondansetron HCl (Ondansetron Hcl 4 Mg/2 Ml Vial) 4 mg IVPUSH Q8H PRN PRN Reason: Nausea Last Admin: 06/21/21 09:44 Dose: 4 mg Documented by: THOMAS Paroxetine HCl (Paroxetine Hcl 10 Mg Tablet) 10 mg PO DAILY [facility] Last Admin: 06/29/21 07:54 Dose: 10 mg Documented by: MOODY Paroxetine HCl (Paroxetine Hcl 40 Mg Tablet) 40 mg PO DAILY [facility] Last Admin: 06/29/21 07:54 Dose: 40 mg Documented by: MOODY Pharmacy Consult (Consult Rx Perform Med Rec) 1 each MISCELLANE ONCE PRN PRN Reason: Consult order Pharmacy Consult (Consult Rx Perform Med Rec) 1 each MISCELLANE ONCE PRN PRN Reason: Consult order Potassium Chloride (Potassium Chloride Packet 20 Meq Packet) 40 meq PO BID [facility] Sodium Chloride (0.9 % Sodium Chloride Flush 3 Ml Syringe) 3 ml IVFLUSH QSHIFT [facility] Last Admin: 06/29/21 15:07 Dose: 3 ml Documented by: MOODY Zolpidem Tartrate (Zolpidem Tartrate 5 Mg Tablet) 5 mg PO BEDTIME PRN PRN Reason: Insomnia Last Admin: 06/22/21 21:11 Dose: 5 mg Documented by: TASHI Labs CBC & Chem 7: 06/21/21 05:37 06/29/21 14:59 Labs: Laboratory Results - last 24 hr 06/28/21 06/29/21 06/29/21 21:21 06:29 14:50 Anion Gap 8 L Estim Creat Clear Calc 97.8 Estimated GFR > 60 Random Glucose 153 H Calcium 8.1 L Magnesium 1.7 Ur Random Potassium 12.3 C. difficile Tox B Gene NEGATIVE Procedures Date of Service Date of Service: 06/29/21 Progress Note: A&P Assessment and plan (1) Anastomotic stricture of colorectal region: Status: Acute Assessment and Plan: pt improved re abdo distension and pain and now with diarrhea improved with lomotil. labs are off ?secondary to diarrhea - med team working on this will recheck labs in am and if improved then will be able to advance to rehab facility Time Spent With Patient Time: Total time spent is greater than 50% in coordination of care (as documented) at patient's floor/unit and/or counseling patient: Quality Stroke Does the patient have a stroke diagnosis?: No VTE Prior VTE?: No VTE Risk Level:: Surgical - high VTE Device Contraindication: N/A - Device Ordered VTE Drug Contraindication: N/A - Med Ordered
[2021-06-29] MEDS: Montelukast Sodium 10 MG TABLET PO (20:48)
[2021-06-29] MEDS: Potassium Chloride Packet 20 MEQ PACKET 40 MEQ PO (20:48)
[2021-06-29] MEDS: Zolpidem Tartrate 5 MG TABLET PO (20:48)
[2021-06-30 03:20] VITALS: BP 130/59; RESP 18; TEMP 36.8; O2SAT 95
[2021-06-30] MEDS: Omeprazole 20 MG CAPSULE.DR PO (04:43)
[2021-06-30] MEDS: Loperamide HCl 2 MG CAPSULE PO (04:44)
[2021-06-30 05:14] LABS: Anion Gap 10 (12-20); Blood Urea Nitrogen 4 mg/dL (9-16); Calcium 8.1 mg/dL (8.4-10.2); Carbon Dioxide 26 mmol/L (22-29); Chloride 104 mmol/L (96-108); Creatinine Clr Calc Pharmacy 101.7; Estimated Glomerular Filt Rate > 60; Glucose Random 111 mg/dL (60-115); Magnesium 1.9 mg/dL (1.6-2.6); Sodium 136 mmol/L (135-145)
[2021-06-30 07:21] VITALS: BP 141/91; PULSE 98; RESP 18; TEMP 36.4; O2SAT 97
--- NOTE | 2021-06-30 08:52 | P.PNIM_ITS ---
Subjective Subjective Date of Service: 06/30/21 <Corina Michele NP - Last Filed: 06/30/21 09:01> 08/17/21 <Patricio Cantu MD - Last Filed: 08/17/21 14:10> Review of Systems multiple episodes of diarrhea yesterday Denies abdominal pain, nausea, vomiting Still having some pain in the right knee although improved from yesterday <Corina Michele NP - Last Filed: 06/30/21 09:01> Physical Exam Vital Signs: Vital Signs: Last Vital Signs Temp 97.5 F 06/30/21 07:21 Pulse 98 06/30/21 07:21 Resp 18 06/30/21 07:21 BP 141/91 H 06/30/21 07:21 Pulse Ox 97 06/30/21 07:21 Oxygen Flow Rate 0 06/24/21 16:00 BMI result Body Mass Index 26.9 <Corina Michele NP - Last Filed: 06/30/21 09:01> Appearing in no acute distress lung sounds are clear to auscultation heart regular rate rhythm, clear S1, S2 positive bowel sounds, abdomen is soft, nontender neuro patient is alert x3, no focal deficits <Corina Michele NP - Last Filed: 06/30/21 09:01> Objective Data Active Medications Acetaminophen (Acetaminophen 325 Mg Tablet) 650 mg PO Q6H PRN PRN Reason: Pain, Mild (Pain Scale 1-3) Last Admin: 06/29/21 15:13 Dose: 650 mg Documented by: MOODY Albuterol Sulfate (Albuterol Sulfate (0.083%) 2.5 Mg/3 Ml Vial.Neb) 2.5 mg INHALE Q4H PRN PRN Reason: Shortness Of Breath Last Admin: 06/21/21 04:02 Dose: 2.5 mg Documented by: ARELIS Amlodipine Besylate (Amlodipine Besylate 10 Mg Tablet) 10 mg PO DAILY [facility]; Protocol Last Admin: 06/29/21 07:54 Dose: 10 mg Documented by: MOODY Anastrozole (Anastrozole 1 Mg Tablet) 1 mg PO DAILY [facility] Last Admin: 06/29/21 07:54 Dose: 1 mg Documented by: MOODY Gabapentin (Gabapentin 300 Mg Capsule) 900 mg PO TID [facility] Last Admin: 06/29/21 20:48 Dose: 900 mg Documented by: FANNY Hydralazine HCl (Hydralazine Hcl 20 Mg/Ml Vial) 10 mg IVPUSH Q6H PRN; Protocol PRN Reason: ELDER>170/90 Last Admin: 06/25/21 04:24 Dose: 10 mg Documented by: FANNY Lidocaine (Lidocaine 4 % Patch Adh..Patch) 1 patch TRANSDERMA DAILY [facility]; Protocol Last Admin: 06/29/21 10:01 Dose: 1 patch Documented by: MOODY Lisinopril (Lisinopril 20 Mg Tablet) 20 mg PO DAILY [facility]; Protocol Last Admin: 06/29/21 07:54 Dose: 20 mg Documented by: MOODY Loperamide HCl (Loperamide Hcl 2 Mg Capsule) 2 mg PO Q4H PRN PRN Reason: Diarrhea Last Admin: 06/30/21 04:44 Dose: 2 mg Documented by: FANNY Montelukast Sodium (Montelukast Sodium 10 Mg Tablet) 10 mg PO BEDTIME [facility] Last Admin: 06/29/21 20:48 Dose: 10 mg Documented by: FANNY Omeprazole (Omeprazole 20 Mg Capsule.Dr) 20 mg PO DAILY@0630 [facility] Last Admin: 06/30/21 04:43 Dose: 20 mg Documented by: FANNY Ondansetron HCl (Ondansetron Hcl 4 Mg/2 Ml Vial) 4 mg IVPUSH Q8H PRN PRN Reason: Nausea Last Admin: 06/21/21 09:44 Dose: 4 mg Documented by: THOMAS Paroxetine HCl (Paroxetine Hcl 10 Mg Tablet) 10 mg PO DAILY [facility] Last Admin: 06/29/21 07:54 Dose: 10 mg Documented by: MOODY Paroxetine HCl (Paroxetine Hcl 40 Mg Tablet) 40 mg PO DAILY [facility] Last Admin: 06/29/21 07:54 Dose: 40 mg Documented by: MOODY Pharmacy Consult (Consult Rx Perform Med Rec) 1 each MISCELLANE ONCE PRN PRN Reason: Consult order Pharmacy Consult (Consult Rx Perform Med Rec) 1 each MISCELLANE ONCE PRN PRN Reason: Consult order Potassium Chloride (Potassium Chloride Packet 20 Meq Packet) 40 meq PO BID [facility] Last Admin: 06/29/21 20:48 Dose: 40 meq Documented by: FANNY Sodium Chloride (0.9 % Sodium Chloride Flush 3 Ml Syringe) 3 ml IVFLUSH QSHIFT [facility] Last Admin: 06/29/21 20:53 Dose: 3 ml Documented by: FANNY Zolpidem Tartrate (Zolpidem Tartrate 5 Mg Tablet) 5 mg PO BEDTIME PRN PRN Reason: Insomnia Last Admin: 06/29/21 20:48 Dose: 5 mg Documented by: FANNY <Corina Michele NP - Last Filed: 06/30/21 09:01> Labs CBC & Chem 7: : 06/21/21 05:37 06/30/21 04:28 <Croina Michele NP - Last Filed: 06/30/21 09:01> Labs: Laboratory Results - last 24 hr 06/29/21 06/30/21 14:50 04:28 Anion Gap 10 L Estim Creat Clear Calc 101.7 Estimated GFR > 60 Random Glucose 111 Calcium 8.1 L Magnesium 1.9 Ur Random Potassium 12.3 <Corina Michele NP - Last Filed: 06/30/21 09:01> Assessment and Plan (1) Hypokalemia: Status: Resolved <Corina Michele NP - Last Filed: 06/30/21 09:01> Assessment and Plan: 66 yo F with a PMH of HTN, asthma, spastic CP, breast ca, prior sigmoid colectomy who is admitted for large bowel obstruction. Medical consult requested for medical mgmt. Hypokalemia/hypomagnesemia. Resolved Repleted Likely r/t GI losses imodium to reduce GI loss HTN BP stable with few high blood pressure reading continue lisinopril 20 mg, and Norvasc 10 mg daily follow BP closely Chronic asthma no acute exacerbation, continue baseline meds Abdominal pain secondary to large bowel obstruction due to colonic stricture tolerating chopped diet will need repeat colonocopy on outpatient basis, need close follow-up with Dr. Gillis? may need to resume MiraLax if noted to have constipation. Spastic CP continue baseline meds Mood continue paxil DVT prophylaxis: compression device Attending Dr. Cantu need continued inpatient hospitalization due to persistent diarrhea and electrolyte abnormalities requiring IV replacement <Corina Michele NP - Last Filed: 06/30/21 09:01> Quality Stroke Does the patient have a stroke diagnosis?: No <Corina Michele NP - Last Filed: 06/30/21 09:01> VTE Prior VTE?: No <Corina Michele NP - Last Filed: 06/30/21 09:01> VTE Risk Level:: Surgical - high <Corina Michele NP - Last Filed: 06/30/21 09:01> VTE Device Contraindication: N/A - Device Ordered <Corina Michele NP - Last Filed: 06/30/21 09:01> VTE Drug Contraindication: N/A - Med Ordered <Corina Michele NP - Last Filed: 06/30/21 09:01>
[2021-06-30] MEDS: Lidocaine 4 % Patch ADH..PATCH 1 PATCH TRANSDERMA (09:47)
[2021-06-30] MEDS: Anastrozole 1 MG TABLET PO (09:48)
[2021-06-30] MEDS: PARoxetine HCL 10 MG TABLET PO (09:48)
[2021-06-30] MEDS: 0.9 % Sodium Chloride Flush 3 ML SYRINGE IVFLUSH ×2 (09:48→15:18)
[2021-06-30] MEDS: lisinopriL 20 MG TABLET PO (09:48)
[2021-06-30] MEDS: PARoxetine HCL 40 MG TABLET PO (09:48)
[2021-06-30] MEDS: Gabapentin 300 MG CAPSULE 900 MG PO ×2 (09:48→15:17)
[2021-06-30] MEDS: amLODIPine Besylate 10 MG TABLET PO (09:48)
[2021-06-30] MEDS: Potassium Chloride Packet 20 MEQ PACKET 40 MEQ PO (09:49)
[2021-06-30 11:43] VITALS: BP 142/85; PULSE 91; RESP 18; TEMP 36.8; O2SAT 96
--- NOTE | 2021-06-30 13:49 | MHC.CM.PN ---
nurse insurance case manager note electronicmedical record reviewed and case discussed with staff nurse and the physician , patient is now medically stable labs , and will be cleared for dischagre today . clinical updates sent to [facility] with labs from today , they have clinically accepted her and have confirmed ins auth , discharge plan [facility] str to tbe transported via [facility] today medicare imm uodated per patient called to her fred marilyn [phone] and carrie crawford [phone] (i was able to reach both parties
--- NOTE | 2021-06-30 15:15 | CONS_ITS ---
DATE OF SERVICE: 06/29/2021 REASON FOR CONSULTATION: Consult requested by the medical team to evaluate and help in management of patient with persistent hypokalemia. HISTORY OF PRESENT ILLNESS: The patient is a 66-year-old female with past medical history of asthma, history of cerebral palsy, depression, prolapse of the intestine, who presents to the hospital with complaints of progressive abdominal pain and distention for about 2 weeks. She has had difficulty passing stool, constipation along with nausea and vomiting. She has had history of rectal prolapse and sigmoid colectomy with rectopexy in 2021. Workup in the ED showed distended colon, possible rectal stricture. She was admitted to the hospital for further evaluation and management. The patient has had persistently low potassium level and hence renal consultation now has been requested. She underwent a balloon dilatation by Dr. Kumar with improvement of abdominal distention and pain. The diarrhea also slowed down. She was on MiraLax, which was discontinued. She is tolerating a chopped diet. Her magnesium level was also on the low side. PAST MEDICAL HISTORY: History of asthma, cerebral palsy, invasive lobular carcinoma of breast history of major depressive disorder, prolapse of the intestine. FAMILY HISTORY: Father of unknown reason. Mother due to breast cancer. REVIEW OF SYSTEMS: As noted above. Other systems reviewed, negative. PAST SURGICAL HISTORY: Include lumpectomy of right breast and history of open sigmoidectomy. PERSONAL AND SOCIAL HISTORY: She does not smoke. Former alcohol user. Does not use drugs. ALLERGIES: PATIENT HAS NO KNOWN DRUG ALLERGIES. MEDICATIONS: Outpatient medications were reviewed. Inpatient medications also reviewed in detail. PHYSICAL EXAMINATION: GENERAL: Patient is resting in the bed. Awake and alert. Able to follow commands. VITAL SIGNS: Blood pressure was 139/85, pulse 114. Afebrile. HEENT: Shows pupils are equal bilaterally to light. No jugular venous distention is noted. NECK: Supple. No thyromegaly is noted. Mucosa dry. There is no scleral icterus or conjunctival congestion. CARDIOVASCULAR SYSTEM: S1, S2 without rub or murmur. RESPIRATORY SYSTEM: Air entry decreased in the bases. No crepitation or rhonchi is noted. ABDOMEN: Distended, soft. Bowel sounds are present. EXTREMITIES: Showed no edema. There is no peripheral cyanosis or clubbing. NEUROLOGIC: Essentially nonfocal. LABORATORY DATA: Done today; WBC is 5.3, hemoglobin 12.4, hematocrit 38.5, platelets 348. Sodium 137, potassium 3.0, chloride 104, CO2 of 26, BUN 7, creatinine 0.5, glucose 100, anion gap 10, calcium 8.2, magnesium 1.3. IMPRESSION: 1. 66-year-old female with hypokalemia. Based on the history, patient's hypokalemia likely due to two factors including GI losses and severe hypomagnesemia. She has been replaced with significant amount of p.o. potassium. It is unclear, if she has renal losses of potassium. I do not think there is a significant transcellular shift causing hypomagnesemia. 2. Hypomagnesemia, likely due to GI losses. 3. Hypertension. 4. Cerebral palsy. 5. Prior sigmoid colectomy with stricture and dilatation during this admission. RECOMMENDATIONS: At this juncture, I have advised medical team to get a spot urine potassium level. If urine potassium level is low, then this is likely due to GI losses. If spot urine potassium level is on the high side, then we can consider treating renal losses. If urine potassium level is on the high side, then we need to do aldosterone and plasma renin activity for hyperaldosteronism given hypertension. Spironolactone can be used, if she has renal losses, but I suspect this is mostly GI losses. The patient also has hypokalemia due to significant hypomagnesemia. The patient needs medication for constipation. I recommend using milk of magnesia as against the MiraLax as it can improve the magnesium level. We can also use SlowMag for magnesium replacement as it does not cause significant diarrhea. Thank you for allowing me to participate in medical management of the patient. MD DARRELL Beasley/JAEL / [phone]
== END 2021-06-30 15:49 | disposition skilled nursing facility (03) | DRG 389 ==
LOC: HO.ED 16:25 → HO.EDOVER 19:17 → HO.S3 06-19 19:10
PROVIDERS: Hospitalist; Internal Medicine; Physician Assistant; Physician Assistant Medical; Admitting Provider Surgery; Emergency Provider Emergency Medicine Emergency Medical Services; PCP Physician Assistant; Visit Provider Surgery
PROC: 0DJD8ZZ Inspection of Lower Intestinal Tract, Via Natural or Artificial Opening Endoscopic (ICD-10-PCS; CPT 45378; principal; 2021-06-20 15:00)
DX: K91.30 Postprocedural intestinal obstruction, unspecified as to partial versus complete (principal); G80.1 Spastic diplegic cerebral palsy; K28.9 Gastrojejunal ulcer, unspecified as acute or chronic, without hemorrhage or perforation; J45.909 Unspecified asthma, uncomplicated; E83.42 Hypomagnesemia; K59.02 Outlet dysfunction constipation; I10 Essential (primary) hypertension; Z85.3 Personal history of malignant neoplasm of breast; E87.6 Hypokalemia; Z20.822 Contact with and (suspected) exposure to COVID-19; Z79.899 Other long term (current) drug therapy
CPT/HCPCS: 36415; 70450; 71045; 74176; 80048; 80076; 81001; 81003; 83605; 83690; 83735; 84132; 84133; 85025; 87086; 87493; 87502; 87635; 94640; 97110; 97116; 97162; 99285; C1726; J0131; J1170; J1650; J2270; J2405; J3475

== ENCOUNTER 2021-07-10 06:29 | Day surgery (SDC) | payer OTHER, SELFPAY ==
--- NOTE | 2021-07-09 09:13 | P.CONAN_ITS ---
Documented by User: Poly Mckeon NP 07/09/21 09:18 HPI - Anesthesia Eval Consult details Narrative: 66yo F for Sigmoidoscopy Flexible balloon diliation s/p colo 06/20/21 with MAC PMFSH Active Problems Active Problems: All Active Problems (Updated 07/22/20 @ 11:48 by Louise Pinedo MD) Cerebral palsy (Acute) Anastomotic stricture of colorectal region (Acute) Fall (on)(from) sidewalk curb, initial encounter (Acute) Screening for hypothyroidism (Acute) Screening for hypercholesterolemia (Acute) Screening for diabetes mellitus (DM) (Acute) Positive colorectal cancer screening using Cologuard test (Acute) Abdominal pain, epigastric (Acute) Asthma (Acute) Colon cancer screening (Acute) Medicare annual wellness visit, initial (Acute) MDD (major depressive disorder) (Acute) Invasive lobular carcinoma of breast in female (Acute) Gastritis (Acute) Anemia (Acute) UTI (urinary tract infection) (Acute) HTN (hypertension) (Acute) Spastic cerebral palsy, congenital (Acute) Rectal prolapse (Acute) Breast CA (Chronic) History of open sigmoidectomy (Acute) Past Medical History Medical History Asthma Cerebral palsy Colonic stricture Invasive lobular carcinoma of breast in female MDD (major depressive disorder) Prolapse of intestine Family History Family History Father Family history unknown Mother Breast cancer Brother No problems noted. Sister History of leukemia Family history of problems with anesthesia: No Surgical History Surgical History History of lumpectomy of right breast History of open sigmoidectomy History of Problems with Anesthesia: No Social History Social History Household Members: None Housing: Apartment Are you a primary day care home provider to a significant other at home: No Do you presently have visiting nurse or other home services: Yes Alcohol intake: former Patient Tobacco Use Status: Never used Tobacco e-Cigarette/Vaping Use: Never Used Use of substances other than those prescribed or required for medical reasons: No Are you DNR?: Yes Advance Directives: No Advance Directives Information Provided: Yes Advance Directives Date on File: 10/01/20 service: No Current occupational status: retired Meds Allergies Allergy/AdvReac Type Severity Reaction Status Date / Time No Known Allergies Allergy Verified 06/03/21 09:00 [No Known Allergies*] Home Medications Medication Instructions Recorded Confirmed Last Taken Type albuterol sulfate 2.5 mg INHALATION Q4H PRN 11/14/19 06/18/21 Unknown History anastrozole 1 mg tablet (Arimidex) 1 tab PO DAILY 10/22/20 06/18/21 06/18/21 History montelukast 10 mg tablet 10 mg PO BEDTIME 06/18/21 06/18/21 06/17/21 History ondansetron 4 mg disintegrating 1 tab PO Q6-8H PRN 06/18/21 06/18/21 Unknown History tablet sennosides 8.6 mg tablet (Natural 8.6 mg PO BEDTIME PRN 06/18/21 06/18/21 06/18/21 History Senna Laxative) Exam Exam Date and Time: July 09, [id number] Pertinent Lab Results Pertinent Lab Results: Laboratory Tests 06/21/21 06/30/21 05:37 04:28 WBC 5.4 Hgb 12.4 Hct 38.5 Plt Count 348 Sodium 136 Potassium 4.0 Chloride 104 Carbon Dioxide 26 BUN 4 L Creatinine 0.50 Assessment and Plan Assessment Anesthesia Assessment: Chart Reviewed Final Anesthetic Review Family History of Problems with Anesthesia: No History of Problems with Anesthesia: No Documented by User: Elia Vazquez MD 07/10/21 14:00 HPI - Anesthesia Eval Consult details Narrative: 66yo F for Sigmoidoscopy Flexible balloon diliation s/p colo 06/20/21 with MAC Patient hypertensive in the pre-op . Systolic's in 170 s. We will not delay care and proceed with the procedure . We will contact the provider at the [facility] , as patient may need adjustment in her anti-hypertensive medications PMFSH Past Medical History Medical History Asthma Cerebral palsy Colonic stricture Invasive lobular carcinoma of breast in female MDD (major depressive disorder) Prolapse of intestine Family History Family History Father Family history unknown Mother Breast cancer Brother No problems noted. Sister History of leukemia Surgical History Surgical History History of lumpectomy of right breast History of open sigmoidectomy Social History Social History Household Members: None Housing: Apartment Are you a primary day care home provider to a significant other at home: No Do you presently have visiting nurse or other home services: Yes Alcohol intake: former Patient Tobacco Use Status: Never used Tobacco e-Cigarette/Vaping Use: Never Used Use of substances other than those prescribed or required for medical reasons: No Are you DNR?: Yes Advance Directives: No Advance Directives Information Provided: Yes Advance Directives Date on File: 10/01/20 service: No Current occupational status: retired [employer] Allergies Allergy/AdvReac Type Severity Reaction Status Date / Time No Known Allergies Allergy Verified 06/03/21 09:00 [No Known Allergies*] Home Medications Medication Instructions Recorded Confirmed Last Taken Type albuterol sulfate 2.5 mg INHALATION Q4H PRN 11/14/19 06/18/21 Unknown History anastrozole 1 mg tablet (Arimidex) 1 tab PO DAILY 10/22/20 06/18/21 06/18/21 History montelukast 10 mg tablet 10 mg PO BEDTIME 06/18/21 06/18/21 06/17/21 History ondansetron 4 mg disintegrating 1 tab PO Q6-8H PRN 06/18/21 06/18/21 Unknown History tablet sennosides 8.6 mg tablet (Natural 8.6 mg PO BEDTIME PRN 06/18/21 06/18/21 06/18/21 History Senna Laxative) Exam Airway Mallampati Class: III Neck ROM: Full Loose/Missing/Broken Teeth: Yes (Cracked and chipped teeth , poor dentition ) Heart: S1, S2 Lungs: b/l breath sounds Assessment and Plan Assessment Anesthesia Assessment: Anesthesia Plan Discussed Final Anesthetic Review NPO: Yes ASA Class: III Final Preanesthetic Review: Meds/Allgs Chart Reviewed, Consent Obtained/Reviewed and Anes Risks/Benef Reviewed Patient Risk: High Procedure Risk: Intermediate Anesthetic Plan Anesthetic Plan: GA Disposition: Standard PACU
[2021-07-10] VITALS (9 sets, daily range): BP systolic 148–188; BP diastolic 92–122; PULSE 80–116; RESP 16–18; TEMP 36.1–37.2; O2SAT 91–96; BMI 24.5
[2021-07-10] MEDS: Lactated Ringers 1,000 ML 100 ML IVCONT (07:06)
[2021-07-10] MEDS: Sodium Phosphate,Mono-Dibasic 133 ML ENEMA PR (07:16)
--- NOTE | 2021-07-10 07:28 | PC.NURSE ---
DNR will be suspended during procedure per Anesthesia, pt in agreement. Form signed by patient
--- NOTE | 2021-07-10 08:35 | PM.OP ---
Brief Operative Note Date of Service: 07/10/21 Pre-op diagnosis: Anastomotic stricture Post-op diagnosis: same Procedure: Flex sig with Balloon dilation with an incremental 12mm to 13.5 to 15mm balloon Surgeon: Tin Gillis Anesthesia: MAC Was an [employer] used for this Procedure?: No Estimated blood loss (mL): 3.0 Pathology: none sent Condition: stable Disposition: PACU
[2021-07-10] MEDS: ondansetron HCL 4 MG/2 ML VIAL IVPUSH (08:40)
[2021-07-10] MEDS: Metoprolol Tartrate 5 MG/5 ML VIAL 2 MG IVPUSH ×2 (08:45→09:00)
[2021-07-10] MEDS: hydrALAZINE HCl 20 MG/ML VIAL 5 MG IVPUSH (09:20)
--- NOTE | 2021-07-10 13:17 | OP_ITS ---
SURGEON: Tin Gillis MD INDICATIONS: The patient presents for followup of a known anastomotic stricture. Full consent was obtained from her for this, including risks of bleeding and perforation. PREOPERATIVE DIAGNOSIS: Anastomotic stricture. POSTOPERATIVE DIAGNOSIS: PROCEDURE PERFORMED: Flexible sigmoidoscopy to 30 cm with balloon dilation of anastomotic stricture. ESTIMATED BLOOD LOSS: COMPLICATIONS: ANESTHESIA: Monitored anesthesia care. ASSISTANTS: SPECIMENS: POSTOPERATIVE DIAGNOSES: Anastomotic stricture, large external hemorrhoids. DESCRIPTION OF PROCEDURE: The patient was placed in the left lateral decubitus position. The digital rectal exam revealed large external hemorrhoidal tissue. The digital exam was otherwise unremarkable. The Olympus video pediatric colonoscope was entered into the rectum. The previous anastomotic stricture was seen quite low at approximately 10-12 cm. This remained quite ulcerated and tight, and would not allow passage of the scope. I then used a [employer] incremental balloon to dilate the stricture from 12 mm to 13.5 mm at the recommended pressure for 60 seconds each. Post dilation, I was then able to get past this into the more proximal colon, which was quite dilated, but with normal-appearing mucosa. There was a large amount of liquid and some solid stool. The scope was withdrawn back to the anastomosis. I then used a balloon to inflate to 15 mm for 60 seconds at the recommended pressure. Post0-dilation there was heme and it was definitely easier to pass the scope beyond this, although there was still some resistance. No further dilation was performed. The rectal mucosa distal to the anastomosis appeared normal as well. The only ulceration was at the anastomosis itself. I did suction out as much air and liquid as I could from the bowel above the stricture. The scope was withdrawn from the patient. She tolerated the procedure well and was returned to recovery area in stable condition. IMPRESSION: Anastomotic stricture, status post balloon dilation. CARE PLAN: If stable, the patient will be returned to her rehab facility today. She will continue on a soft low residue diet. She will continue on her bowel regimen. Instructions have been given that she should not use any aspirin or NSAIDs long-term. Given today's findings, I am not overly optimistic that we will be able to keep the stricture open with endoscopic dilation and ultimately she may need a permanent colostomy if this becomes a chronic recurring problem with intermittent obstruction. If things are stable, I will try to get her back for a repeat exam in the next 2-3 weeks and dilate the anastomosis further if possible. MD VIKY Gurrola/JAEL / [id number] MTDD
== END 2021-07-10 11:10 | disposition home or self-care (01) ==
PROVIDERS: PCP Physician Assistant; Visit Provider Internal Medicine
PROC: 0DJD8ZZ Inspection of Lower Intestinal Tract, Via Natural or Artificial Opening Endoscopic (ICD-10-PCS; CPT 45330; principal; 2021-07-10 07:30)
DX: K91.30 Postprocedural intestinal obstruction, unspecified as to partial versus complete (principal); R14.0 Abdominal distension (gaseous); K59.00 Constipation, unspecified; K64.4 Residual hemorrhoidal skin tags; Z90.49 Acquired absence of other specified parts of digestive tract; G80.9 Cerebral palsy, unspecified; C50.911 Malignant neoplasm of unspecified site of right female breast; F32.9 Major depressive disorder, single episode, unspecified; Z66 Do not resuscitate; Z79.811 Long term (current) use of aromatase inhibitors; Z79.899 Other long term (current) drug therapy
CPT/HCPCS: 45340; J2405; J2550

== ENCOUNTER 2021-07-10 15:40 | Emergency (ER) | payer OTHER, SELFPAY ==
[2021-07-10 16:04] VITALS: BP 170/110; BP 183/102; PULSE 108; PULSE 113; RESP 18; TEMP 37.1; O2SAT 94; O2SAT 96; BMI 24.5
--- NOTE | 2021-07-10 16:50 | ED_ITS ---
HPI - General Adult General Chief complaint: General Medical <Sarah Koch CNP - Last Filed: 07/10/21 19:03> Stated complaint: fever, tachycardia <Sarah Koch CNP - Last Filed: 07/10/21 19:03> Time Seen by Provider: 07/10/21 16:00 <Sarah Koch CNP - Last Filed: 07/10/21 19:03> Source: patient, EMS and RN notes reviewed <Sarah Koch CNP - Last Filed: 07/10/21 19:03> Mode of arrival: EMS <Sarah Koch CNP - Last Filed: 07/10/21 19:03> Limitations: no limitations <Sarah Koch CNP - Last Filed: 07/10/21 19:03> History of Present Illness HPI narrative: Patient presents to the emergency department via EMS transport with from [facility]. Patient reportedly had an outpatient colonoscopy today. Procedure note reveals that she was hypertensive after procedure. Facility sent patient to the emergency department for persistent hypertension, she did not receive her routine antihypertensives upon arrival back to the facility <Sarah Koch CNP - Last Filed: 07/10/21 19:03> Related Data Home medications: Home Medications Medication Instructions Recorded Confirmed albuterol sulfate 2.5 mg INHALATION Q4H PRN 11/14/19 07/10/21 anastrozole 1 mg tablet (Arimidex) 1 tab PO DAILY 10/22/20 07/10/21 montelukast 10 mg tablet 10 mg PO BEDTIME 06/18/21 07/10/21 ondansetron 4 mg disintegrating 1 tab PO Q6H PRN 06/18/21 07/10/21 tablet sennosides 8.6 mg tablet (Natural 8.6 mg PO BEDTIME PRN 06/18/21 07/10/21 Senna Laxative) bisacodyl 10 mg rectal suppository 10 mg VA DAILY PRN 07/10/21 07/10/21 melatonin 3 mg tablet 3 mg PO BEDTIME PRN 07/10/21 07/10/21 Previous Rx's Medication Instructions Recorded Paxil CR 12.5 mg tablet,extended 12.5 mg PO DAILY #90 cap NS 09/11/20 release (paroxetine HCl) Paxil CR 25 mg tablet,extended 50 mg PO DAILY #180 tab NS 09/11/20 release (paroxetine HCl) gabapentin 300 mg capsule 900 mg PO TID #270 cap 03/10/21 lisinopril 10 mg tablet 10 mg PO DAILY #90 cap 04/10/21 ferrous sulfate 325 mg (65 mg 325 mg PO BID #60 tab 05/14/21 iron) tablet (iron) omeprazole 20 mg capsule,delayed 20 mg PO DAILY 30 Days #30 cap 05/27/21 release polyethylene glycol 3350 17 17 g PO DAILY #510 g 06/16/21 gram/dose oral powder (Miralax) potassium chloride 20 mEq 20 meq PO DAILY #20 tab 07/10/21 tablet,extended release <Sarah Koch CNP - Last Filed: 07/10/21 19:03> Allergies/adverse reactions: Allergies Allergy/AdvReac Type Severity Reaction Status Date / Time No Known Allergies Allergy Verified 07/10/21 16:04 [No Known Allergies*] <Sarah Koch CNP - Last Filed: 07/10/21 19:03> Review of Systems Review of Systems: Constitutional: No weight loss, fever, chills, weakness or fatigue. Skin: No rash or itching. Cardiovascular: No chest pain, chest pressure or chest discomfort. No palpitations or pedal edema. Respiratory: No shortness of breath, cough or sputum production. Gastrointestinal: No anorexia, nausea, vomiting or diarrhea. No abdominal pain or blood in stool. Genitourinary: No burning micturition. No urinary frequency or incontinence. Musculoskeletal: No muscle pain, back pain, joint pain or stiffness. Psychiatric: No depression or anxiety. <Sarah Koch CNP - Last Filed: 07/10/21 19:03> Yes all other systems are reviewed and are negative <Sarah Koch CNP - Last Filed: 07/10/21 19:03> [facility] Past Medical History Attestation statement: The following information was validated with the patient. <Sarah Koch CNP - Last Filed: 07/10/21 19:03> Source: old records reviewed <Sarah Koch CNP - Last Filed: 07/10/21 19:03> Medical History: Medical History Asthma Cerebral palsy Colonic stricture Invasive lobular carcinoma of breast in female MDD (major depressive disorder) Prolapse of intestine <Sarah Koch CNP - Last Filed: 07/10/21 19:03> Surgical History: Surgical History History of lumpectomy of right breast History of open sigmoidectomy <Sarah Koch CNP - Last Filed: 07/10/21 19:03> Family History Family History: Family History Father Family history unknown Mother Breast cancer Brother No problems noted. Sister History of leukemia <Sarah Koch CNP - Last Filed: 07/10/21 19:03> Social History Social History: Social History Household Members: None Housing: Apartment Are you a primary care administrative tech to a significant other at home: No Do you presently have visiting nurse or other home services: Yes Alcohol intake: former Patient Tobacco Use Status: Never used Tobacco e-Cigarette/Vaping Use: Never Used Advance Directives: Yes Advance Directives on File: Yes Advance Directives Date on File: 10/01/20 service: No Current occupational status: retired <Sarah Koch CNP - Last Filed: 07/10/21 19:03> Physical Exam ED Vital Signs: Vital Signs - 24 hr 07/10/21 16:04 07/10/21 18:41 Temperature 98.8 F Pulse Rate 113 H 103 H Respiratory Rate 18 20 Blood Pressure 183/102 H 182/90 H Pulse Oximetry 94 94 BMI result Body Mass Index 24.5 Vital signs have been reviewed and appeared to be correct. Hypertensive? tachycardia Respiration rate normal. Temperature normal.? Oxygen saturation normal. <Sarah Koch CNP - Last Filed: 07/10/21 19:03> Vital Signs - 24 hr 07/10/21 16:04 07/10/21 18:41 Temperature 98.8 F Pulse Rate 113 H 103 H Respiratory Rate 18 20 Blood Pressure 183/102 H 182/90 H Pulse Oximetry 94 94 BMI result Body Mass Index 24.5 <Andre Holman MD - Last Filed: 07/10/21 22:53> Appearance: Alert.?Oriented to person, place and time. No acute distress.?Normal affect. Eyes: Pupils equal, round and reactive to light.? ENT: Pharynx normal.?? Neck: Normal inspection.? Neck supple.??No JVD CVS: Heart sounds normal. Normal heart rate and rhythm.? Pulses normal.?? Respiratory: No respiratory distress.? Lung sounds clear to auscultation bilaterally?? Abdomen: Soft and non-tender. Normoactive bowel sounds. Skin: Skin warm and dry.? Normal skin color.? Extremities: No lower extremity edema.? Neuro: Moves all extremities spontaneously. Sensation intact bilaterally. No motor deficits <Sarah Koch CNP - Last Filed: 07/10/21 19:03> NIH Stroke Scale Time: 18:00 <Sarah Koch CNP - Last Filed: 07/10/21 19:03> Level of Consciousness: Alert <Sarah Koch CNP - Last Filed: 07/10/21 19:03> Level of Consciousness Questions: Answers both questions correctly <Sarah Koch CNP - Last Filed: 07/10/21 19:03> Level of Consciousness Commands: Performs both tasks correctly <Sarah Koch CNP - Last Filed: 07/10/21 19:03> Best Gaze: Normal <Sarah Koch CNP - Last Filed: 07/10/21 19:03> Visual: No visual loss <Sarah Koch CNP - Last Filed: 07/10/21 19:03> Facial Palsy: Normal <Sarah Koch CNP - Last Filed: 07/10/21 19:03> Motor Arm (Right): No drift <Sarah Koch CNP - Last Filed: 07/10/21 19:03> Motor Arm (Left): No drift <Sarah Koch CNP - Last Filed: 07/10/21 19:03> Motor Leg (Right): No drift <Sarah Tolentino ACE Koch - Last Filed: 07/10/21 19:03> Motor Leg (Left): No drift <Sarah Tolentino ACE Koch - Last Filed: 07/10/21 19:03> Limb Ataxia: Absent <Sarah Tolentino ACE Koch - Last Filed: 07/10/21 19:03> Sensory: Normal <Sarah Tolentino ACE Koch - Last Filed: 07/10/21 19:03> Best Language: No aphasia <Sarah Tolentino ACE Koch - Last Filed: 07/10/21 19:03> Dysarthia: Normal (cerebral palsy, speech at baseline per family) <Sarah Tolentino ACE Koch - Last Filed: 07/10/21 19:03> Extinction and Inattention: No abnormality <Sarah Tolentino ACE Koch - Last Filed: 07/10/21 19:03> Score: 0 <Sarahchiki Koch CNP - Last Filed: 07/10/21 19:03> 0 <Andre Holman MD - Last Filed: 07/10/21 22:53> Course Course Course Narrative: Patient is a 66-year-old female with a history of cerebral palsy, asthma, major depressive disorder, gastritis, hypertension, and invasive lobular carcinoma of the breast with radiation and lumpectomy in 2016 or 2018. It appears as though patient has had a positive Cologuard testing, but denies having a colonoscopy. It appears as though her procedures through GI have been flex sig, with no report of colonoscopy or biopsy/ pathology She presents to the emergency department from [facility] for hypertension. Review of procedural notes from Dr. Gillis indicates that today patient underwent a flex sigmoidoscopy with balloon dilation today. Patient was hypertensive, received metoprolol 2 mg IV at 08:45 and 0900, in addition to hydralazine 5 mg IV at 09:20. Upon return back to the facility patient continued to have hypertension per the nursing report, but was not given in a routine antihypertensives. At this time patient has no complaints, physical exam is benign. 17:00 Current blood pressure 167/97 with heart rate 94. Will order home lisinopril 10 mg p.o. will obtain basic labs including CBC CMP in addition to troponin and EKG. Follow normal, and hypertension is better managed will [facility] <Sarah Koch CNP - Last Filed: 07/10/21 19:03> Reevaluation(s) Reevaluation #1: CBC reveal no leukocytosis, with a microcytic anemia consistent with baseline. Thrombocytosis with platelet count 771, with no history of prior. Potassium is 2.4, will require oral and IV replacement. Patient recently admitted to hospital 06/19/2021 discharged 06/30/2021 for hypokalemia at that time as well, thought to be related to GI losses, additionally she is on oral lisinopril. Magnesium 1.5, order 2 g IV. Blood pressure continues to be elevated 182/104, will order hydralazine 5 mg IV. EKG with mild sinus tachycardia rate 104, first-degree AV block, nonspecific ST abnormalities but likely secondary to hypokalemia. At this time she is reporting a mild headache, no red flag symptoms, denies any vision changes, requesting Tylenol. I discussed this case with ED attending Dr Holman, who advises low suspicion for ICH at this time secondary to to hypertension, will treat hypertension, provide Tylenol, then re-evaluate. <Sarah Koch CNP - Last Filed: 07/10/21 19:03> Time: 18:02 <Sarah Koch CNP - Last Filed: 07/10/21 19:03> Reevaluation #2: Repeat blood pressure at this time 180/90 heart rate 94. Headache is diffuse and minimal at this time. Message sent to hospitalist Dr. Jiménez for admission to medicine service. Accepted for admission with night hospitalist Dr. Mensah. Patient updated on plan of care and is agreeable. <Sarah Koch CNP - Last Filed: 07/10/21 19:03> Time: 18:46 <Sarah Koch CNP - Last Filed: 07/10/21 19:03> Reevaluation #3: The patient was initially to be admitted. The night hospitalist however felt the patient could likely be treated in the ED with potassium and have a potassium recheck here after additional p.o. and IV potassium. Patient's potassium around 22:00 was 3.4 and she has continued to get additional IV potassium and so her potassium level should be normal now. Patient also has new thrombocytosis which had worked up as an outpatient. She has chronic hypertension and had missed her medication but can resume her usual medications. Critical care time for this life-threatening illness exclusive of all other billable procedures was approximately 35 minutes including initial evaluation of the patient, ordering tests, x-ray interpretation, EKG interpretation, medical consultation, documentation, reevaluation. <Andre Holman MD - Last Filed: 07/10/21 22:53> Time: 22:52 <Andre Holman MD - Last Filed: 07/10/21 22:53> Medical Decision Making Medical Records Medical records reviewed: Yes I reviewed the patient's medical records. <Sarah Koch CNP - Last Filed: 07/10/21 19:03> Lab Data Lab results reviewed: Yes I reviewed the patient's lab results. <Sarah Koch CNP - Last Filed: 07/10/21 19:03> Result diagrams: : 07/10/21 17:21 07/10/21 22:08 <Sarah Koch CNP - Last Filed: 07/10/21 19:03> Labs: Lab Results 07/10/21 07/10/21 07/10/21 Range/Units 17:21 17:21 17:21 WBC 8.8 (4.8-10.8) X10*3/uL RBC 3.87 L (4.20-5.50) X10*6/uL Hgb 10.2 L (12.0-16.0) g/dl Hct 33.0 L (37.0-47.0) % MCV 85.3 (80.0-98.0) fL MCH 26.4 L (27.0-33.0) pg MCHC 30.9 L (31.0-35.0) g/dl RDW 15.8 (11.0-16.0) % Plt Count 771 H D (160-400) X10*3/uL MPV 8.4 L (9.4-12.3) fL Immature Gran % (Auto) 0.3 (0.0-0.4) % Neut % (Auto) 83.5 H (45-73) % Lymph % (Auto) 8.5 L (20-40) % [place] % (Auto) 7.5 (2-11) % Eos % (Auto) 0.0 (0-4) % Baso % (Auto) 0.2 (0-2) % Lymph # (Auto) 0.8 L (1.2-4.9) X10*3/uL [place] # (Auto) 0.7 (0.1-1.2) X10*3/uL Eos # (Auto) 0.0 (0.0-0.4) X10*3/uL Baso # (Auto) 0.0 (0.0-0.2) X10*3/uL Abs Immat Gran (auto) 0.03 (0.00-0.03) X10*3/uL Absolute Neuts (auto) 7.4 (2.0-8.3) x10*3/uL Absolute Nucleated RBC 0.000 (0.0-0.012) X10*3/uL Nucleated RBC % (auto) 0.0 (0.0-0.2) /100WBC Sodium 143 (135-145) mmol/L Potassium 2.4 L* D (3.3-5.1) mmol/L Chloride 108 (96-108) mmol/L Carbon Dioxide 23 (22-29) mmol/L Anion Gap 14 (12-20) BUN 7 L D (9-16) mg/dL Creatinine 0.60 (0.5-1.4) mg/dL Estim Creat Clear Calc 78.5 Estimated GFR > 60 Random Glucose 129 H (60-115) mg/dL Calcium 8.8 D (8.4-10.2) mg/dL Magnesium 1.5 L (1.6-2.6) mg/dL Total Bilirubin 0.3 (0.0-1.0) mg/dL AST 10 (5-31) U/L ALT 13 (0-31) U/L Alkaline Phosphatase 103 D (39-117) U/L Troponin I High Sens 11.6 (<3.5-17.0) ng/L Total Protein 5.6 L (6.5-8.0) g/dL Albumin 3.0 L D (3.5-5.0) g/dL 06/02/22 Range/Units 22:08 WBC (4.8-10.8) X10*3/uL RBC (4.20-5.50) X10*6/uL Hgb (12.0-16.0) g/dl Hct (37.0-47.0) % MCV (80.0-98.0) fL MCH (27.0-33.0) pg MCHC (31.0-35.0) g/dl RDW (11.0-16.0) % Plt Count (160-400) X10*3/uL MPV (9.4-12.3) fL Immature Gran % (Auto) (0.0-0.4) % Neut % (Auto) (45-73) % Lymph % (Auto) (20-40) % [place] % (Auto) (2-11) % Eos % (Auto) (0-4) % Baso % (Auto) (0-2) % Lymph # (Auto) (1.2-4.9) X10*3/uL [place] # (Auto) (0.1-1.2) X10*3/uL Eos # (Auto) (0.0-0.4) X10*3/uL Baso # (Auto) (0.0-0.2) X10*3/uL Abs Immat Gran (auto) (0.00-0.03) X10*3/uL Absolute Neuts (auto) (2.0-8.3) x10*3/uL Absolute Nucleated RBC (0.0-0.012) X10*3/uL Nucleated RBC % (auto) (0.0-0.2) /100WBC Sodium (135-145) mmol/L Potassium 3.4 D (3.3-5.1) mmol/L Chloride (96-108) mmol/L Carbon Dioxide (22-29) mmol/L Anion Gap (12-20) BUN (9-16) mg/dL Creatinine (0.5-1.4) mg/dL Estim Creat Clear Calc Estimated GFR Random Glucose (60-115) mg/dL Calcium (8.4-10.2) mg/dL Magnesium (1.6-2.6) mg/dL Total Bilirubin (0.0-1.0) mg/dL AST (5-31) U/L ALT (0-31) U/L Alkaline Phosphatase (39-117) U/L Troponin I High Sens (<3.5-17.0) ng/L Total Protein (6.5-8.0) g/dL Albumin (3.5-5.0) g/dL <Sarah Koch, [employer] - Last Filed: 07/10/21 19:03> Lab Results 07/10/21 07/10/21 07/10/21 Range/Units 17:21 17:21 17:21 WBC 8.8 (4.8-10.8) X10*3/uL RBC 3.87 L (4.20-5.50) X10*6/uL Hgb 10.2 L (12.0-16.0) g/dl Hct 33.0 L (37.0-47.0) % MCV 85.3 (80.0-98.0) fL MCH 26.4 L (27.0-33.0) pg MCHC 30.9 L (31.0-35.0) g/dl RDW 15.8 (11.0-16.0) % Plt Count 771 H D (160-400) X10*3/uL MPV 8.4 L (9.4-12.3) fL Immature Gran % (Auto) 0.3 (0.0-0.4) % Neut % (Auto) 83.5 H (45-73) % Lymph % (Auto) 8.5 L (20-40) % [place] % (Auto) 7.5 (2-11) % Eos % (Auto) 0.0 (0-4) % Baso % (Auto) 0.2 (0-2) % Lymph # (Auto) 0.8 L (1.2-4.9) X10*3/uL [place] # (Auto) 0.7 (0.1-1.2) X10*3/uL Eos # (Auto) 0.0 (0.0-0.4) X10*3/uL Baso # (Auto) 0.0 (0.0-0.2) X10*3/uL Abs Immat Gran (auto) 0.03 (0.00-0.03) X10*3/uL Absolute Neuts (auto) 7.4 (2.0-8.3) x10*3/uL Absolute Nucleated RBC 0.000 (0.0-0.012) X10*3/uL Nucleated RBC % (auto) 0.0 (0.0-0.2) /100WBC Sodium 143 (135-145) mmol/L Potassium 2.4 L* D (3.3-5.1) mmol/L Chloride 108 (96-108) mmol/L Carbon Dioxide 23 (22-29) mmol/L Anion Gap 14 (12-20) BUN 7 L D (9-16) mg/dL Creatinine 0.60 (0.5-1.4) mg/dL Estim Creat Clear Calc 78.5 Estimated GFR > 60 Random Glucose 129 H (60-115) mg/dL Calcium 8.8 D (8.4-10.2) mg/dL Magnesium 1.5 L (1.6-2.6) mg/dL Total Bilirubin 0.3 (0.0-1.0) mg/dL AST 10 (5-31) U/L ALT 13 (0-31) U/L Alkaline Phosphatase 103 D (39-117) U/L Troponin I High Sens 11.6 (<3.5-17.0) ng/L Total Protein 5.6 L (6.5-8.0) g/dL Albumin 3.0 L D (3.5-5.0) g/dL 07/10/21 Range/Units 22:08 WBC (4.8-10.8) X10*3/uL RBC (4.20-5.50) X10*6/uL Hgb (12.0-16.0) g/dl Hct (37.0-47.0) % MCV (80.0-98.0) fL MCH (27.0-33.0) pg MCHC (31.0-35.0) g/dl RDW (11.0-16.0) % Plt Count (160-400) X10*3/uL MPV (9.4-12.3) fL Immature Gran % (Auto) (0.0-0.4) % Neut % (Auto) (45-73) % Lymph % (Auto) (20-40) % [place] % (Auto) (2-11) % Eos % (Auto) (0-4) % Baso % (Auto) (0-2) % Lymph # (Auto) (1.2-4.9) X10*3/uL [place] # (Auto) (0.1-1.2) X10*3/uL Eos # (Auto) (0.0-0.4) X10*3/uL Baso # (Auto) (0.0-0.2) X10*3/uL Abs Immat Gran (auto) (0.00-0.03) X10*3/uL Absolute Neuts (auto) (2.0-8.3) x10*3/uL Absolute Nucleated RBC (0.0-0.012) X10*3/uL Nucleated RBC % (auto) (0.0-0.2) /100WBC Sodium (135-145) mmol/L Potassium 3.4 D (3.3-5.1) mmol/L Chloride (96-108) mmol/L Carbon Dioxide (22-29) mmol/L Anion Gap (12-20) BUN (9-16) mg/dL Creatinine (0.5-1.4) mg/dL Estim Creat Clear Calc Estimated GFR Random Glucose (60-115) mg/dL Calcium (8.4-10.2) mg/dL Magnesium (1.6-2.6) mg/dL Total Bilirubin (0.0-1.0) mg/dL AST (5-31) U/L ALT (0-31) U/L Alkaline Phosphatase (39-117) U/L Troponin I High Sens (<3.5-17.0) ng/L Total Protein (6.5-8.0) g/dL Albumin (3.5-5.0) g/dL <Andre Holman MD - Last Filed: 07/10/21 22:53> ECG Data Attestation: I personally reviewed and interpreted this ECG as follows: <Sarah Koch CNP - Last Filed: 07/10/21 19:03> Prior ECG tracings: available for review <Sarah Koch CNP - Last Filed: 07/10/21 19:03> Interpretation: Rate: 104 Rhythm:? Sinus tachycardia with first-degree AV block [facility] [place]:? Normal Normal P waves.? Normal [facility].?? Normal QRS complex.?? ST T wave :??Nonspecific ST abnormality qTC: 442 prior studies:?June 2021 The study has been interpreted contemporaneously by me. <Sarah Koch CNP - Last Filed: 07/10/21 19:03> Discharge Plan Discharge Clinical Impression: HTN (hypertension), Hypokalemia, Thrombocytosis, Hypomagnesemia <Sarah Koch CNP - Last Filed: 07/10/21 19:03> Patient Disposition: Home, Self-Care <Sarah Koch CNP - Last Filed: 07/10/21 19:03> Instructions: Hypokalemia (ED) <Sarah Koch CNP - Last Filed: 07/10/21 19:03> Additional Instructions: Continue current medications. Take potassium chloride 20 mg daily as prescribed. Follow-up with primary care physician for recheck of your potassium in 3-4 days. Follow up with the show host or hostess/oncologist for evaluation of your elevated platelet level. <Sarah Koch CNP - Last Filed: 07/10/21 19:03> Prescriptions: New potassium chloride 20 mEq tablet extended release 20 meq PO DAILY Qty: 20 0RF No Action paroxetine HCl [Paxil CR] 12.5 mg tablet extended release 24 hr 12.5 mg PO DAILY Qty: 90 3RF Rx Instructions: take with paxil cr 25 (total dose=62.5 mg) paroxetine HCl [Paxil CR] 25 mg tablet extended release 24 hr 50 mg PO DAILY Qty: 180 2RF Rx Instructions: take with paxil cr 12.5 mg gabapentin 300 mg capsule 900 mg PO TID Qty: 270 3RF lisinopril 10 mg tablet 10 mg PO DAILY Qty: 90 1RF anastrozole [Arimidex] 1 mg tablet 1 tab PO DAILY 0RF ferrous sulfate [iron] 325 mg (65 mg iron) Tablet 325 mg PO BID Qty: 60 3RF polyethylene glycol 3350 [Miralax] 17 gram/dose powder 17 g PO DAILY Qty: 510 0RF ondansetron 4 mg tablet,disintegrating 1 tab PO Q6H PRN (Reason: nausea/vomiting) 0RF sennosides [Natural Senna Laxative] 8.6 mg tablet 8.6 mg PO BEDTIME PRN (Reason: Constipation) 0RF montelukast 10 mg tablet 10 mg PO BEDTIME 0RF bisacodyl 10 mg Suppository 10 mg VA DAILY PRN (Reason: Constipation) 0RF melatonin 3 mg Tablet 3 mg PO BEDTIME PRN (Reason: Insomnia) 0RF albuterol sulfate 2.5 mg /3 mL (0.083 %) solution for nebulization 2.5 mg inhalation Q4H PRN (Reason: Shortness Of Breath) 0RF omeprazole 20 mg capsule,delayed release(DR/EC) 20 mg PO DAILY 30 Days Qty: 30 3RF <Sarah Koch, ACE - Last Filed: 07/10/21 19:03>
--- NOTE | 2021-07-10 16:56 | ECG_ITS ---
Test Reason : TACHYCARDIA Blood Pressure : / mmHG Vent. Rate : 103 BPM Atrial Rate : 103 BPM P-R Int : 212 ms QRS Dur : 098 ms QT Int : 338 ms P-R-T Axes : 054 012 021 degrees QTc Int : 442 ms Sinus tachycardia with 1st degree A-V block Nonspecific ST and T wave abnormality Abnormal ECG When compared with ECG of 26-OCT-2019 17:18, No significant change was found Referred By: Sarah Koch Electronically Signed By:JEET FARRIS MD
[2021-07-10] MEDS: lisinopriL 10 MG TABLET PO (17:10)
[2021-07-10 17:26] LABS: MANUAL DIFF FLAG NO
--- NOTE | 2021-07-10 17:27 | PC.NURSE ---
Spoke to Laura at facility, pt was not given AM dose of lisinipril, gave here, fever at facility of 99.6.
[2021-07-10 17:39] LABS: Basophils Percent Auto 0.2 % (0-2); Hemoglobin 10.2 g/dl (12.0-16.0); Imm Gran Abs Auto 0.03 X10*3/uL (0.00-0.03); Imm Gran Pct Auto 0.3 % (0.0-0.4); Lymphocytes Absolute Auto 0.8 X10*3/uL (1.2-4.9); Lymphocytes Percent Auto 8.5 % (20-40); Mean Corpuscular HGB Conc 30.9 g/dl (31.0-35.0); Mean Corpuscular Hemoglobin 26.4 pg (27.0-33.0); Mean Corpuscular Volume 85.3 fL (80.0-98.0); Mean Platelet Volume 8.4 fL (9.4-12.3); Monocytes Absolute Auto 0.7 X10*3/uL (0.1-1.2); Monocytes Percent Auto 7.5 % (2-11); Neutrophils Absolute Auto 7.4 x10*3/uL (2.0-8.3); Neutrophils Percent Auto 83.5 % (45-73); Platelet Count 771 X10*3/uL (160-400); Red Blood Count 3.87 X10*6/uL (4.20-5.50); Red Cell Distribution Width 15.8 % (11.0-16.0); White Blood Count 8.8 X10*3/uL (4.8-10.8)
[2021-07-10 17:52] LABS: Alanine Aminotransferase 13 U/L (0-31); Alkaline Phosphatase 103 U/L (39-117); Anion Gap 14 (12-20); Aspartate Amino Transferase 10 U/L (5-31); Bilirubin Total 0.3 mg/dL (0.0-1.0); Blood Urea Nitrogen 7 mg/dL (9-16); Calcium 8.8 mg/dL (8.4-10.2); Carbon Dioxide 23 mmol/L (22-29); Chloride 108 mmol/L (96-108); Creatinine Clr Calc Pharmacy 78.5; Estimated Glomerular Filt Rate > 60; Glucose Random 129 mg/dL (60-115); Potassium 2.4 mmol/L (3.3-5.1); Sodium 143 mmol/L (135-145); Total Protein 5.6 g/dL (6.5-8.0)
[2021-07-10 17:56] LABS: Troponin-I High Sensitivity 11.6 ng/L (<3.5-17.0)
[2021-07-10] MEDS: Acetaminophen 325 MG TABLET 650 MG PO (18:23)
[2021-07-10] MEDS: hydrALAZINE HCl 20 MG/ML VIAL 5 MG IVPUSH (18:24)
[2021-07-10] MEDS: Potassium Chloride Packet 20 MEQ PACKET 40 MEQ PO (18:24)
[2021-07-10] MEDS: 0.9 % Sodium Chloride 1,000 ML 999 ML IV (18:28)
[2021-07-10 18:29] LABS: Magnesium 1.5 mg/dL (1.6-2.6)
[2021-07-10] MEDS: Potassium Chloride/H20 10 MEQ/100 ML PIGGYBACK 100 MEQ IV ×4 (18:34→23:19)
[2021-07-10 18:41] VITALS: BP 182/90; PULSE 103; RESP 20; O2SAT 94
[2021-07-10] MEDS: Magnesium Sulfate/H2O 2 GM/50 ML PIGGYBACK IV (20:33)
[2021-07-10] MEDS: Potassium Bicarbonate/Cit AC 25 MEQ TABLET.EFF PO (20:33)
--- NOTE | 2021-07-10 21:57 | PHA.MEDREC ---
MED REC COMPLETE, NO ISSUES Pharmacy Consult ? Medication Reconciliation Pharmacy has completed the medication reconciliation.
[2021-07-10 22:32] LABS: Potassium 3.4 mmol/L (3.3-5.1)
--- NOTE | 2021-07-10 23:17 | PC.NURSE ---
call out [facility] regarding transfer back to nursing facility [facility] unable to transfer any patients until after 0700
--- NOTE | 2021-07-10 23:19 | PC.NURSE ---
call out @2316 to [facility] ? regarding transport to [facility] facility, [facility] denied request due to no units available
[2021-07-10 23:45] VITALS: BP 163/99; PULSE 89; RESP 16; TEMP 36.4; O2SAT 93
--- NOTE | 2021-07-11 00:10 | PC.NURSE ---
call out @0002 to [facility]
[2021-07-11 02:25] VITALS: BP 174/123; PULSE 92; RESP 20; TEMP 37.1; O2SAT 93
[2021-07-11] MEDS: Acetaminophen 325 MG TABLET 650 MG PO (02:41)
[2021-07-11] MEDS: lisinopriL 10 MG TABLET PO (02:42)
[2021-07-11 05:33] VITALS: BP 196/116; PULSE 88; RESP 18; TEMP 36.8; O2SAT 95
--- NOTE | 2021-07-11 05:47 | PC.NURSE ---
Provider informed that pt has had 4 or 5 loose foul smelling stools throughout the night. Ordered placed to test stool sample for c. diff. Plan for pt at this time is discharge to SNF, which was scheduled much earlier in the shift.
[2021-07-11 07:09] VITALS: BP 213/108
[2021-07-11] MEDS: hydrALAZINE HCl 20 MG/ML VIAL 5 MG IVPUSH ×3 (07:22→08:27)
[2021-07-11 07:33] VITALS: BP 182/117; PULSE 93; RESP 20
[2021-07-11 07:48] VITALS: BP 187/111; PULSE 87; RESP 18
== END 2021-07-11 09:45 | disposition skilled nursing facility (03) ==
PROVIDERS: Nurse Practitioner Family; Emergency Provider Emergency Medicine; PCP Family Medicine Geriatric Medicine
DX: I10 Essential (primary) hypertension (principal); E87.6 Hypokalemia; D75.839 Thrombocytosis, unspecified; E83.42 Hypomagnesemia; J45.909 Unspecified asthma, uncomplicated; Z79.899 Other long term (current) drug therapy; Z98.890 Other specified postprocedural states
CPT/HCPCS: 36415; 80053; 83735; 84132; 84484; 85025; 93005; 96365; 96366; 96375; 96376; 99284; 99285; J3475

== ENCOUNTER 2021-07-31 09:53 | Outpatient (REF) | payer OTHER, SELFPAY ==
[2021-07-31 10:36] LABS: Hematocrit 32.8 % (37.0-47.0); Mean Corpuscular HGB Conc 30.5 g/dl (31.0-35.0); Mean Corpuscular Volume 85.2 fL (80.0-98.0); Mean Platelet Volume 8.9 fL (9.4-12.3); Platelet Count 361 X10*3/uL (160-400); Red Blood Count 3.85 X10*6/uL (4.20-5.50); Red Cell Distribution Width 15.3 % (11.0-16.0); White Blood Count 4.4 X10*3/uL (4.8-10.8)
[2021-07-31 10:46] LABS: Estimated Average Glucose 114 mg/dL; Hemoglobin A1c % 5.6 %
[2021-07-31 11:13] LABS: Alanine Aminotransferase 11 U/L (0-31); Albumin Level 3.8 g/dL (3.5-5.0); Alkaline Phosphatase 77 U/L (39-117); Anion Gap 14 (12-20); Aspartate Amino Transferase 13 U/L (5-31); Bilirubin Total 0.3 mg/dL (0.0-1.0); Blood Urea Nitrogen 10 mg/dL (9-16); Calcium 9.4 mg/dL (8.4-10.2); Carbon Dioxide 24 mmol/L (22-29); Chloride 107 mmol/L (96-108); Cholesterol 141 mg/dL; Estimated Glomerular Filt Rate > 60; Glucose Fasting 103 mg/dL (60-99); HDL Cholesterol 67 mg/dL; LDL Cholesterol Calculated 62 mg/dl; Potassium 4.3 mmol/L (3.3-5.1); Sodium 141 mmol/L (135-145); Total Protein 6.6 g/dL (6.5-8.0); Triglycerides 64 mg/dL
[2021-07-31 11:25] LABS: Appearance Urine HAZY; Color Urine YELLOW; Glucose Urine UA NEG (NEG); Leukocyte Esterase Urine TRACE (NEG); Nitrite Urine NEG (NEG); Specific Gravity - Urine 1.015 (1.005-1.025); UACC Culture Trigger NO; Urine Blood 1+ (NEG); Urine Ketones NEG (NEG); Urine Protein TRACE MG/DL (NEG-TRACE)
[2021-07-31 11:43] LABS: Bacteria Urine TRACE /LPF; Calcium Oxalate Crystals Urine 4+ /LPF; Squamous Epithelial Cell Urine 1+ /LPF; WBC Urine 0-2 /HPF (0-4)
== END 2021-07-31 09:54 | disposition home or self-care (01) ==
LOC: HO.LAB 09:53
PROVIDERS: PCP Physician Assistant; Visit Provider Nurse Practitioner Family
DX: Z13.220 Encounter for screening for lipoid disorders (principal); Z13.29 Encounter for screening for other suspected endocrine disorder; K91.30 Postprocedural intestinal obstruction, unspecified as to partial versus complete
CPT/HCPCS: 36415; 80053; 80061; 81001; 83036; 84443; 85027; 99212

== ENCOUNTER 2021-08-08 07:15 | Day surgery (SDC) | payer OTHER, SELFPAY ==
[2021-08-04 13:21] VITALS: BMI 24.5
--- NOTE | 2021-08-07 13:45 | P.CONAN_ITS ---
Documented by User: Poly Mckeon NP 08/07/21 13:48 HPI - Anesthesia Eval Consult details Narrative: 66yo F for Sigmoidoscopy Flexible with balloon dilation Pt was [place] [facility] [place] with bowel obstruction s/p outpt flex sig 07/11/21 with MAC (sent to ER from SNF after returning d/t htn, but pt did not receive usual anti-htn) PMFSH Active Problems Active Problems: All Active Problems (Updated 08/04/21 @ 13:20 by Jennie Gonzáles RN) HTN (hypertension) (Acute) Cerebral palsy (Acute) MDD (major depressive disorder) (Acute) Asthma (Acute) History of open sigmoidectomy (Acute) Spastic cerebral palsy, congenital (Acute) Invasive lobular carcinoma of breast in female (Acute) Rectal prolapse (Acute) Breast CA (Chronic) UTI (urinary tract infection) (Acute) Anemia (Acute) Gastritis (Acute) Medicare annual wellness visit, initial (Acute) Colon cancer screening (Acute) Abdominal pain, epigastric (Acute) Positive colorectal cancer screening using Cologuard test (Acute) Screening for diabetes mellitus (DM) (Acute) Screening for hypercholesterolemia (Acute) Screening for hypothyroidism (Acute) Fall (on)(from) sidewalk curb, initial encounter (Acute) Anastomotic stricture of colorectal region (Acute) Hypokalemia (Acute) Elevated platelet count (Acute) Past Medical History Medical History Asthma Cerebral palsy Colonic stricture Hx of flexible sigmoidoscopy Invasive lobular carcinoma of breast in female MDD (major depressive disorder) Prolapse of intestine Family History Family History Father Family history unknown Mother Breast cancer Brother No problems noted. Sister History of leukemia Family history of problems with anesthesia: No Surgical History Surgical History History of gastric surgery History of lumpectomy of right breast History of open sigmoidectomy History of Problems with Anesthesia: No Social History Social History Household Members: None Housing: Apartment Are you a primary doggy daycare activities director to a significant other at home: No Do you presently have visiting nurse or other home services: Yes Alcohol intake: former Patient Tobacco Use Status: Never used Tobacco e-Cigarette/Vaping Use: Never Used Second Hand Smoke Exposure: No Use of substances other than those prescribed or required for medical reasons: No Are you DNR?: No Advance Directives: Yes Advance Directives on File: Yes Advance Directives Date on File: 10/01/20 service: No Current occupational status: retired Cognitive needs: Yes (walker) Hearing needs: No Vision needs: Yes (reading glasses) Meds Allergies Allergy/AdvReac Type Severity Reaction Status Date / Time No Known Allergies Allergy Verified 07/31/21 09:36 [No Known Allergies*] Home Medications Medication Instructions Recorded Confirmed Last Taken Type albuterol sulfate 2.5 mg inhalation Q4H PRN 11/14/19 08/08/21 Unknown History Shortness Of Breath anastrozole 1 mg tablet (Arimidex) 1 tab PO DAILY 10/22/20 08/08/21 06/18/21 History montelukast 10 mg tablet 10 mg PO BEDTIME 06/18/21 08/08/21 06/17/21 History ondansetron 4 mg disintegrating 1 tab PO Q6H PRN nausea/vomiting 06/18/21 08/08/21 Unknown History tablet amlodipine 5 mg tablet 5 mg PO DAILY 07/30/21 08/08/21 Unknown History ibuprofen 800 mg tablet 800 mg PO TID 07/30/21 08/08/21 Unknown History Exam Exam Date and Time: August 07, 2021 1345 Height,Weight and Vital Signs: Height 5 ft 4 in Weight 64.864 kg Pertinent Lab Results Pertinent Lab Results: Laboratory Tests 07/31/21 07/31/21 10:11 10:11 WBC 4.4 L Hgb 10.0 L Hct 32.8 L Plt Count 361 D Sodium 141 Potassium 4.3 D Chloride 107 Carbon Dioxide 24 BUN 10 Creatinine 0.62 Narrative Narrative: EKG 07/2021 Vent. Rate : 103 BPM ? ? Atrial Rate : 103 BPM ?? P-R Int : 212 ms? QRS Dur : 098 ms ? ? QT Int : 338 ms ? ? ? P-R-T Axes : 054 012 021 degrees ?? QTc Int : 442 ms ? Sinus tachycardia with 1st degree A-V block Nonspecific ST and T wave abnormality Abnormal ECG When compared with ECG of 26-OCT-2019 17:18, No significant change was found Assessment and Plan Assessment Anesthesia Assessment: Chart Reviewed Final Anesthetic Review Family History of Problems with Anesthesia: No History of Problems with Anesthesia: No Documented by User: Jd Aparicio MD 08/08/21 09:21 [facility] Past Medical History Medical History Asthma Cerebral palsy Colonic stricture Hx of flexible sigmoidoscopy Invasive lobular carcinoma of breast in female MDD (major depressive disorder) Prolapse of intestine Family History Family History Father Family history unknown Mother Breast cancer Brother No problems noted. Sister History of leukemia Surgical History Surgical History History of gastric surgery History of lumpectomy of right breast History of open sigmoidectomy Social History Social History Household Members: None Housing: Apartment Are you a primary doggy daycare activities director to a significant other at home: No Do you presently have visiting nurse or other home services: Yes Alcohol intake: former Patient Tobacco Use Status: Never used Tobacco e-Cigarette/Vaping Use: Never Used Second Hand Smoke Exposure: No Use of substances other than those prescribed or required for medical reasons: No Are you DNR?: No Advance Directives: Yes Advance Directives on File: Yes Advance Directives Date on File: 10/01/20 service: No Current occupational status: retired Cognitive needs: Yes (walker) Hearing needs: No Vision needs: Yes (reading glasses) Meds Allergies Allergy/AdvReac Type Severity Reaction Status Date / Time No Known Allergies Allergy Verified 07/31/21 09:36 [No Known Allergies*] Home Medications Medication Instructions Recorded Confirmed Last Taken Type albuterol sulfate 2.5 mg inhalation Q4H PRN 11/14/19 08/08/21 Unknown History Shortness Of Breath anastrozole 1 mg tablet (Arimidex) 1 tab PO DAILY 10/22/20 08/08/21 06/18/21 History montelukast 10 mg tablet 10 mg PO BEDTIME 06/18/21 08/08/21 06/17/21 History ondansetron 4 mg disintegrating 1 tab PO Q6H PRN nausea/vomiting 06/18/21 08/08/21 Unknown History tablet amlodipine 5 mg tablet 5 mg PO DAILY 07/30/21 08/08/21 Unknown History ibuprofen 800 mg tablet 800 mg PO TID 07/30/21 08/08/21 Unknown History Exam Airway Mallampati Class: IV TM Dist: >3cm Neck ROM: Full Loose/Missing/Broken Teeth: No Heart: rrr Lungs: clear Assessment and Plan Final Anesthetic Review NPO: Yes ASA Class: III Final Preanesthetic Review: No Changes in Pt Med Stat, Meds/Allgs Chart Reviewed, Consent Obtained/Reviewed and Anes Risks/Benef Reviewed Patient Risk: Intermediate Procedure Risk: Low Anesthetic Plan Anesthetic Plan: MAC: Disposition: Standard PACU
[2021-08-08 07:48] VITALS: BMI 23.0
[2021-08-08] MEDS: Lactated Ringers 1,000 ML 100 ML IVCONT (08:08)
[2021-08-08] MEDS: Sodium Phosphate,Mono-Dibasic 133 ML ENEMA PR (08:10)
[2021-08-08 10:14] VITALS: BP 102/63; PULSE 75; RESP 20; TEMP 36.7; O2SAT 97
--- NOTE | 2021-08-08 10:17 | P.BOP_ITS ---
Brief Operative Note Date of Service: 08/08/21 Pre-op diagnosis: Anastomotic stricture Post-op diagnosis: same Procedure: Flex sig with Ballon Dilation from 12mm to 13.5mm to 15mm to 16.5mm to 18mm Surgeon: Tin Gillis Anesthesia: MAC Was an Tanning Drum Operator used for this Procedure?: No Estimated blood loss (mL): 2.0 Pathology: none sent Condition: stable Disposition: PACU
[2021-08-08 10:29] VITALS: BP 141/87; PULSE 78; RESP 18; O2SAT 97
[2021-08-08 10:40] VITALS: BP 133/86; PULSE 78; RESP 16; TEMP 36.7; O2SAT 97
--- NOTE | 2021-08-08 21:10 | OP_ITS ---
SURGEON: Tin Gillis MD INDICATIONS: The patient presents for evaluation of an anastomotic stricture and previous colonic obstruction. Full consent was obtained from her for this, including risks of bleeding and perforation. PREOPERATIVE DIAGNOSIS: Anastomotic stricture. POSTOPERATIVE DIAGNOSIS: Anastomotic stricture. PROCEDURE PERFORMED: Flexible sigmoidoscopy with balloon dilation of anastomotic stricture. ESTIMATED BLOOD LOSS: COMPLICATIONS: ANESTHESIA: Monitored anesthesia care. ASSISTANTS: SPECIMENS: DESCRIPTION OF PROCEDURE: The patient was placed in the left lateral decubitus position. The digital rectal exam revealed external hemorrhoids. The Olympus video pediatric colonoscope was entered into the rectum. There was a fair amount of stool in the rectum. I was able to visualize the anastomosis at approximately 10 cm. Again, there was a stricture noted and I could not pass the scope despite some gentle pressure. I was able to visualize the lumen of the stricture. I then used a Location incremental balloon to dilate the stricture from 12 mm to 13.5 mm to 15 mm at the recommended pressure for between 30 and 60 seconds each. Postdilation, I was then able to be easily pass the stricture into the more proximal colon which appeared to be dilated, but otherwise normal. I did not go beyond 30 cm due to a lot of stool. The mucosae I did visualize appeared normal. The scope was withdrawn back in the rectum. The stricture was more patent, but was quite friable. I then used a different balloon to dilate the stricture further from 15 mm again to 16.5 mm to 18 mm at the recommended pressure for 60 seconds each. Postdilation, the stricture was much more patent and easily passed with the scope. There was obviously some friability and disruption of the stricture. Photographs were taken. There was a lot of liquid stool at that point and the scope was then withdrawn from the patient. She tolerated the procedure well and was returned to the recovery area in stable condition. IMPRESSION: 1. Anastomotic stricture, status post balloon dilation from 12 mm to 18 mm with incremental balloons. 2. External hemorrhoids. PLAN: The patient will undergo repeat exam in the next 3 to 4 weeks to see if the stricture remains open. Obviously if it continues to stricture down significantly with an associated colonic obstruction she may need an eventual colostomy for diversion. Overall, I suspect this is related to some ischemia at the anastomosis. MD VIKY Gurrola/JAEL / [id number] [email or web address]
== END 2021-08-08 11:33 | disposition home or self-care (01) ==
PROVIDERS: PCP Family Medicine Geriatric Medicine; Visit Provider Internal Medicine
PROC: 0DJD8ZZ Inspection of Lower Intestinal Tract, Via Natural or Artificial Opening Endoscopic (ICD-10-PCS; CPT 45330; principal; 2021-08-08 08:30)
DX: K91.30 Postprocedural intestinal obstruction, unspecified as to partial versus complete (principal); R11.2 Nausea with vomiting, unspecified; R14.0 Abdominal distension (gaseous); K62.4 Stenosis of anus and rectum; K64.4 Residual hemorrhoidal skin tags; Z90.49 Acquired absence of other specified parts of digestive tract; G80.9 Cerebral palsy, unspecified; I10 Essential (primary) hypertension; C50.911 Malignant neoplasm of unspecified site of right female breast; Z79.811 Long term (current) use of aromatase inhibitors; Z79.899 Other long term (current) drug therapy; Z66 Do not resuscitate
CPT/HCPCS: 45340; C1726

== ENCOUNTER 2021-09-02 06:29 | Day surgery (SDC) | payer OTHER, SELFPAY ==
[2021-08-27 13:14] VITALS: BMI 23.0
[2021-08-27 13:15] VITALS: BMI 23.0
[2021-09-02 06:59] VITALS: BP 121/77; PULSE 80; RESP 18; TEMP 35.8; O2SAT 96
[2021-09-02] MEDS: Lactated Ringers 1,000 ML 50 ML IVCONT (06:59)
[2021-09-02] MEDS: Sodium Phosphate,Mono-Dibasic 133 ML ENEMA PR (07:10)
--- NOTE | 2021-09-02 07:17 | HO.ANESPROP2 ---
HPI - Anesthesia Eval Consult details Narrative: 66 F for Flex sigmoidoscopy Cerebral Palsy PMFSH Active Problems Active Problems: All Active Problems (Updated 08/27/21 @ 13:06 by Jennie Gonzáles RN) HTN (hypertension) (Acute) Spastic cerebral palsy, congenital (Acute) Rectal prolapse (Acute) Breast CA (Chronic) UTI (urinary tract infection) (Acute) Anemia (Acute) Gastritis (Acute) Medicare annual wellness visit, initial (Acute) Colon cancer screening (Acute) Abdominal pain, epigastric (Acute) Positive colorectal cancer screening using Cologuard test (Acute) Screening for diabetes mellitus (DM) (Acute) Screening for hypercholesterolemia (Acute) Screening for hypothyroidism (Acute) Fall (on)(from) sidewalk curb, initial encounter (Acute) Anastomotic stricture of colorectal region (Acute) Hypokalemia (Acute) Elevated platelet count (Acute) Cerebral palsy (Acute) MDD (major depressive disorder) (Acute) Asthma (Acute) History of open sigmoidectomy (Acute) Invasive lobular carcinoma of breast in female (Acute) Past Medical History Medical History Asthma Cerebral palsy Colonic stricture Hx of flexible sigmoidoscopy Invasive lobular carcinoma of breast in female MDD (major depressive disorder) Prolapse of intestine Family History Family History Father Family history unknown Mother Breast cancer Brother No problems noted. Sister History of leukemia Family history of problems with anesthesia: No Surgical History Surgical History History of gastric surgery History of lumpectomy of right breast History of open sigmoidectomy History of Problems with Anesthesia: No Social History Social History Household Members: None Housing: Apartment Are you a primary health and social care teacher to a significant other at home: No Do you presently have visiting nurse or other home services: Yes Alcohol intake: former Patient Tobacco Use Status: Never used Tobacco e-Cigarette/Vaping Use: Never Used Second Hand Smoke Exposure: No Use of substances other than those prescribed or required for medical reasons: No Are you DNR?: Yes Advance Directives: Yes Advance Directives Information Provided: Yes Advance Directives on File: Yes Advance Directives Date on File: 10/01/20 Recently lost weight without trying: No Eating poorly because of decreased appetite: No Nutrition Risks: No Nutritional Risk service: No Current occupational status: retired Cognitive needs: Yes (walker) Hearing needs: No Vision needs: Yes (reading glasses) Meds Allergies Allergy/AdvReac Type Severity Reaction Status Date / Time No Known Allergies Allergy Verified 07/31/21 09:36 [No Known Allergies*] Active Medications: Current Medications Lactated Ringer's (Lr) 1,000 mls @ 50 mls/hr IVCONT .Q20H VERONICA Last Admin: 09/02/21 06:59 Dose: 50 mls/hr Home Medications Medication Instructions Recorded Confirmed Last Taken Type albuterol sulfate 2.5 mg/3 mL 2.5 mg inhalation Q4H PRN 11/14/19 08/27/21 Unknown History (0.083 %) solution for nebulization Shortness Of Breath anastrozole 1 mg tablet (Arimidex) 1 tab PO DAILY 10/22/20 08/27/21 06/18/21 History montelukast 10 mg tablet 10 mg PO BEDTIME 06/18/21 08/27/21 06/17/21 History ondansetron 4 mg disintegrating 1 tab PO Q6H PRN nausea/vomiting 06/18/21 08/27/21 Unknown History tablet ibuprofen 800 mg tablet 800 mg PO TID 07/30/21 08/27/21 Unknown History Exam Exam Date and Time: September 02, 2021 0717 Height,Weight and Vital Signs: Height 5 ft 3 in Weight 58.967 kg Last Vital Signs Temp 96.5 F L 09/02/21 06:59 Pulse 80 09/02/21 06:59 Resp 18 09/02/21 06:59 BP 121/77 09/02/21 06:59 Pulse Ox 96 09/02/21 06:59 O2 Del Method 09/02/21 06:59 Airway Mallampati Class: III Neck ROM: Full Loose/Missing/Broken Teeth: Yes (Poor dentition globally ) Heart: S1,S2 Lungs: b/l breath sounds Assessment and Plan Assessment Anesthesia Assessment: Anesthesia Plan Discussed and Chart Reviewed Final Anesthetic Review Family History of Problems with Anesthesia: No History of Problems with Anesthesia: No NPO: Yes ASA Class: III Final Preanesthetic Review: Meds/Allgs Chart Reviewed, Consent Obtained/Reviewed and Anes Risks/Benef Reviewed Patient Risk: High Procedure Risk: Intermediate Anesthetic Plan Anesthetic Plan: MAC: Disposition: Standard PACU
--- NOTE | 2021-09-02 08:25 | P.BOP_ITS ---
Brief Operative Note Date of Service: 09/02/21 Pre-op diagnosis: Anastomotic stricture Post-op diagnosis: same Procedure: Flexible sigmoidoscopy with Balloon Dilation of the Anastomotic stricture with 12mm to 15mm to 18mm to 20mm Balloons. Surgeon: Tin Gillis Was an Decorative Engraver Apprentice used for this Procedure?: No Estimated blood loss (mL): 3.0 Pathology: none sent Condition: stable Disposition: PACU
[2021-09-02 08:26] VITALS: BP 142/93; PULSE 93; RESP 16; TEMP 37.1; O2SAT 96
[2021-09-02 08:41] VITALS: BP 164/95; PULSE 87; RESP 18; TEMP 37; O2SAT 96
--- NOTE | 2021-09-02 09:40 | OP_ITS ---
SURGEON: Tin Gillis MD INDICATIONS: The patient presents for evaluation of a known anastomotic stricture and previous colon obstruction. Full consent has been obtained from her for this, including risks of bleeding and perforation. PREOPERATIVE DIAGNOSIS: History of anastomotic stricture. POSTOPERATIVE DIAGNOSIS: Anastomotic stricture. PROCEDURE PERFORMED: ESTIMATED BLOOD LOSS: COMPLICATIONS: ANESTHESIA: Monitored anesthesia care. ASSISTANTS: SPECIMENS: PROCEDURE: Flexible sigmoidoscopy to 30 cm with balloon dilation of anastomotic stricture. DESCRIPTION OF PROCEDURE: The patient was placed in the left lateral decubitus position. The digital rectal exam revealed some external hemorrhoids. The exam was otherwise unremarkable. The Olympus video pediatric colonoscope entered into the rectum. There was some solid brown stool. With irrigation, I was able to visualize the low anastomosis at approximately 10 or 12 cm. There was some ulceration around the lumen. I was then able to pop past the stricture with the scope with gentle pressure, which I have been unable to do on previous procedures without first having to dilate it. The colonic mucosa proximal to the stricture appeared normal. There was some solid brown stool above the anastomosis. I then used a [employer] incremental balloons to dilate the stricture further. I first used a 12 mm to a 15 mm balloon at the recommended pressure for 60 seconds each. I then used a 15 mm to an 18 mm balloon at the recommended pressures for 60 seconds each. I then used an 18 mm balloon to a 20 mm balloon at the recommended pressures for 60 seconds each. Post-dilation the stricture was clearly disrupted and allowed easy passage of the scope. There was clearly some heme coming from the stricture after the dilation. However, there did not appear to be any complication. The scope was then withdrawn from the patient. She tolerated the procedure well and was returned to the recovery area in stable condition. IMPRESSION: Anastomotic stricture, status post balloon dilation. PLAN: At this point, given today's findings and having dilated her up to a 20 mm balloon today, I have advised her that I think we can simply observe things since she has otherwise been doing well. I did advise her to stay on at least 1 Colace or a dose of MiraLAX daily jail. She was advised not to use any aspirin or NSAIDs for at least 2 weeks, but to try to stay off them intermediate school teacher to minimize the risk of any recurrence of the stricture. She has been advised to call me sooner, rather than later, if she starts developing constipation and abdominal distention. However, if things remain stable, she would simply see me on a p.r.n. basis. She has been given written instructions in this regard. MD VIKY Gurrola/JAEL / [id number] [id number]
== END 2021-09-02 09:24 | disposition home or self-care (01) ==
PROVIDERS: PCP Physician Assistant; Visit Provider Internal Medicine
PROC: 0DJD8ZZ Inspection of Lower Intestinal Tract, Via Natural or Artificial Opening Endoscopic (ICD-10-PCS; CPT 45330; principal; 2021-09-02 07:30)
DX: K91.30 Postprocedural intestinal obstruction, unspecified as to partial versus complete (principal); R14.0 Abdominal distension (gaseous); K59.00 Constipation, unspecified; Z98.0 Intestinal bypass and anastomosis status; K64.4 Residual hemorrhoidal skin tags; G80.9 Cerebral palsy, unspecified; C50.911 Malignant neoplasm of unspecified site of right female breast; Z92.3 Personal history of irradiation; Z79.811 Long term (current) use of aromatase inhibitors; I10 Essential (primary) hypertension; J45.909 Unspecified asthma, uncomplicated; F32.9 Major depressive disorder, single episode, unspecified; Z66 Do not resuscitate; Z79.1 Long term (current) use of non-steroidal anti-inflammatories (NSAID); Z79.899 Other long term (current) drug therapy
CPT/HCPCS: 45340; C1726; J2405

== ENCOUNTER 2021-09-16 18:04 | Emergency (ER) | payer OTHER, SELFPAY ==
--- NOTE | ~2021-09-16 | XR_ITS ---
EXAMINATION: XR TIBIA AND FIBULA, RIGHT CLINICAL INFORMATION: Injury with laceration and pain COMPARISON: None TECHNIQUE: AP and lateral views of the right tibia and fibula were obtained. FINDINGS: Degenerative changes are present in the knee most marked in the lateral compartment with narrowing sclerosis and osteophytes. The tibia and fibular are otherwise. Vascular calcifications are seen. XR/XR tibia fibula RT 2V IMPRESSION: No evidence of a traumatic osseous injury.
[2021-09-16 18:12] VITALS: BP 119/85; BP 129/91; PULSE 84; PULSE 88; RESP 18; TEMP 36.5; O2SAT 97; O2SAT 98; BMI 23.7
--- NOTE | 2021-09-16 18:51 | ED_ITS ---
HPI - Wound/Laceration General Chief Complaint: Wound/Laceration Stated Complaint: SMALL LACERATION Time Seen by Provider: 09/16/21 18:10 Source: patient Mode of arrival: EMS Limitations: no limitations History of Present Illness HPI narrative: Patient presents emergency department for evaluation of a laceration. She reports upon getting out of the car the door hit her leg, and she sustained a cut. Bleeding is controlled. Denies being on any anticoagulants. There is mild localized pain. She was able to ambulate with steady gait afterwards. Related Data Home Medications Medication Instructions Recorded Confirmed albuterol sulfate 2.5 mg/3 mL 2.5 mg inhalation Q4H PRN 11/14/19 09/15/21 (0.083 %) solution for nebulization Shortness Of Breath anastrozole 1 mg tablet (Arimidex) 1 tab PO DAILY 10/22/20 09/15/21 montelukast 10 mg tablet 10 mg PO BEDTIME 06/18/21 09/15/21 ondansetron 4 mg disintegrating 1 tab PO Q6H PRN nausea/vomiting 06/18/21 09/15/21 tablet ibuprofen 800 mg tablet 800 mg PO TID 07/30/21 09/15/21 Previous Rx's Medication Instructions Recorded Paxil CR 25 mg tablet,extended 50 mg PO DAILY #180 tabs 09/11/20 release (paroxetine HCl) gabapentin 300 mg capsule 900 mg PO TID #270 caps 03/10/21 ferrous sulfate 325 mg (65 mg 325 mg PO BID #60 tabs 05/14/21 iron) tablet (iron) omeprazole 20 mg capsule,delayed 20 mg PO DAILY 30 days #30 caps 05/27/21 release potassium chloride 20 mEq 20 meq PO DAILY #20 tabs 07/10/21 tablet,extended release Paxil CR 12.5 mg tablet,extended 12.5 mg PO DAILY #90 tabs 07/21/21 release (paroxetine HCl) lisinopril 20 mg tablet 20 mg PO DAILY #90 tabs 07/30/21 amlodipine 5 mg tablet 5 mg PO DAILY #90 tabs 08/28/21 acetaminophen 650 mg 650 mg PO Q12H 30 days #60 tabs 09/05/21 tablet,extended release docusate sodium 100 mg capsule 100 mg PO BID 30 days #60 caps 09/05/21 (Colace) cyanocobalamin (vitamin B-12) 1,000 mcg PO DAILY #90 tabs 09/15/21 1,000 mcg tablet (Vitamin B-12) cephalexin 500 mg capsule 500 mg PO QID 7 days #28 caps 09/16/21 Allergies Allergy/AdvReac Type Severity Reaction Status Date / Time No Known Allergies Allergy Verified 09/16/21 18:18 [No Known Allergies*] Review of Systems Review of Systems: Skin: Positive laceration Yes all other systems are reviewed and are negative PMFSH Past Medical History Attestation statement: The following information was validated with the patient. Source: old records reviewed Medical History Asthma Cerebral palsy Colonic stricture Hx of flexible sigmoidoscopy Invasive lobular carcinoma of breast in female MDD (major depressive disorder) Prolapse of intestine Surgical History History of gastric surgery History of lumpectomy of right breast History of open sigmoidectomy Family History Family History Father Family history unknown Mother Breast cancer Brother No problems noted. Sister History of leukemia Social History Social History Household Members: None Housing: Apartment Are you a primary child care associate teacher to a significant other at home: No Do you presently have visiting nurse or other home services: Yes Alcohol intake: former Patient Tobacco Use Status: Never used Tobacco e-Cigarette/Vaping Use: Never Used Second Hand Smoke Exposure: No Advance Directives: Yes Advance Directives on File: Yes Advance Directives Date on File: 10/01/20 service: No Current occupational status: retired Cognitive needs: Yes (walker) Hearing needs: No Vision needs: Yes (reading glasses) Physical Exam Vital Signs: Vital Signs: Last Vital Signs Temp 97.7 F 09/16/21 18:12 Pulse 84 09/16/21 18:12 Resp 18 09/16/21 18:12 BP 129/91 H 09/16/21 18:12 Pulse Ox 97 09/16/21 18:12 O2 Del Method 09/16/21 18:12 BMI result Body Mass Index 23.7 Appearance: Alert.?Oriented to person, place and time. No acute di stress.?Normal affect. Eyes: Pupils equal, round and reactive to light.? ENT: Pharynx normal.?? Neck: Normal inspection.? Neck supple.?? CVS: Heart sounds normal. Normal heart rate and rhythm.? Pulses normal.?? Respiratory: No respiratory distress.? Lung sounds clear to auscultation bilaterally?? Abdomen: Soft and non-tender. Normoactive bowel sounds. No pulsatile mass.?? Skin: Skin warm and dry.? Normal skin color.? 8 cm linear laceration to the r ight anterior lower leg, mild localized swelling, no active bleeding, and is able to be approximated. Extremities: No lower extremity edema.? No calf ttp? Neuro: Moves all extremities spontaneously. Sensation intact bilaterally. CN II- XII intact. No focal neuro deficits. Ambulates with normal steady gait. Course Course Course Narrative: Patient is a 66-year-old female with a history of cerebral palsy, asthma, major depressive disorder, gastritis, hypertension, and invasive lobular carcinoma of the breast with radiation and lumpectomy in 2016 or 2018. He presents emergency department for evaluation of a laceration to the right lower extremity sustained from a car door. Bleeding controlled. Tdap is updated. XR of the right tibia and fibula reveal no acute fracture dislocation. Patient is status post laceration repair with 7 sutures, cleansed with normal saline, repaired under aseptic technique, tolerated procedure well. Advised removal in 8-10 days, discussed worsening signs and symptoms to return back to the emergency department for, prophylactic antibiotics. All questions were answered. Patient able to ambulate out of the emergency department with steady gait. [facility] - Wound/Laceration Medical Records Attestation: I reviewed the patient's medical records. Imaging Data XR tib/fib: Radiologist's impression: XR/XR tibia fibula RT 2V IMPRESSION: No evidence of a traumatic osseous injury. ? Procedures Laceration Laceration 1: Site: lower extremity Side (If applicable): left Size (cm): 8 Description: linear Depth: simple, single layer Local Anesthetic: lidocaine 1% Amount of anesthesia used (mL): 4 Pre-repair: wound explored, irrigated extensively and deep structures intact Skin layer closed with: nylon Size (cm): 4-0 Number of sutures: 7 Technique: simple, interrupted Discharge Plan Discharge Clinical Impression: Avulsion of skin of right lower leg Patient Disposition: Home, Self-Care Instructions: Skin Avulsion (ED) Additional Instructions: The sutures will need to be removed in 8-10 days. You have been given any antibiotic to take to prevent infection, please complete this entire course. Please contact your primary care provider to arrange for follow-up as needed. Return to the emergency department any new or worsening symptoms or concerns. If you develop redness, swelling, pus-like drainage, fevers, chills you should be re-evaluated. Prescriptions: New cephalexin 500 mg capsule 500 mg PO QID 7 Days Qty: 28 0RF No Action paroxetine HCl [Paxil CR] 25 mg tablet extended release 24 hr 50 mg PO DAILY Qty: 180 2RF Rx Instructions: take with paxil cr 12.5 mg gabapentin 300 mg capsule 900 mg PO TID Qty: 270 3RF paroxetine HCl [Paxil CR] 12.5 mg tablet extended release 24 hr 12.5 mg PO DAILY Qty: 90 3RF amlodipine 5 mg tablet 5 mg PO DAILY Qty: 90 1RF anastrozole [Arimidex] 1 mg tablet 1 tab PO DAILY ferrous sulfate [iron] 325 mg (65 mg iron) Tablet 325 mg PO BID Qty: 60 3RF cyanocobalamin (vitamin B-12) [Vitamin B-12] 1,000 mcg Tablet 1,000 mcg PO DAILY Qty: 90 3RF ondansetron 4 mg tablet,disintegrating 1 tab PO Q6H PRN (Reason: nausea/vomiting) montelukast 10 mg tablet 10 mg PO BEDTIME potassium chloride 20 mEq tablet extended release 20 meq PO DAILY Qty: 20 0RF albuterol sulfate 2.5 mg /3 mL (0.083 %) solution for nebulization 2.5 mg inhalation Q4H PRN (Reason: Shortness Of Breath) ibuprofen 800 mg tablet 800 mg PO TID lisinopril 20 mg tablet 20 mg PO DAILY Qty: 90 0RF acetaminophen 650 mg tablet extended release 650 mg PO Q12H 30 Days Qty: 60 1RF docusate sodium [Colace] 100 mg capsule 100 mg PO BID 30 Days Qty: 60 3RF omeprazole 20 mg capsule,delayed release(DR/EC) 20 mg PO DAILY 30 Days Qty: 30 3RF Referrals: Polo Nascimento PA-C [Primary Care Provider] - Interventions: ED Discharge Assessment Last Done: 09/16/21 20:22 Discharge Date/Time: 09/16/21 20:22
[2021-09-16] MEDS: Diphth,Pertus(ACell),Tet Adult 0.5 ML SYRINGE IM (19:08)
[2021-09-16] MEDS: Lidocaine HCl 1 % MPF 2 ML VIAL 4 ML SUBCUT (19:08)
--- NOTE | 2021-09-16 19:36 | PC.NURSE ---
RHEOSTAT ASSEMBLER at bedside to suture lac. patient awake and alert. skin pwd. resp even and non labored. speaking in full, sentences. Friend Kendra states she will pick patient up- phone number [phone]
== END 2021-09-16 20:22 | disposition home or self-care (01) ==
PROVIDERS: Emergency Provider Emergency Medicine; PCP Physician Assistant
DX: S81.811A Laceration without foreign body, right lower leg, initial encounter (principal); W20.8XXA Other cause of strike by thrown, projected or falling object, initial encounter; Y93.89 Activity, other specified; Y92.810 Car as the place of occurrence of the external cause; Y99.9 Unspecified external cause status
CPT/HCPCS: 12034; 73590; 90471; 90715; 99282; 99284

== ENCOUNTER 2021-10-29 10:57 | Emergency (ER) | payer OTHER, SELFPAY ==
--- NOTE | ~2021-10-29 | CT_ITS ---
CT head/brain wo IV con CLINICAL INFORMATION: Reason for Exam Fall, right frontal hematoma R/O fracture, bleed COMPARISON: 06/19/2021 TECHNIQUE: Department standard protocol. This CT examination was performed using dose optimization techniques as appropriate, variously including the following: *Automated exposure control *Adjustment of mA and/or kV according to patient size (this includes techniques or standardized protocols for targeted exams where dose is matched to indication/reason for exam; i.e. extremities or head) *Use of iterative reconstruction technique DLP: 636 mGy-cm FINDINGS: CEREBRAL HEMISPHERES: There is no evidence of intra-axial or extra-axial mass, hemorrhage or acute infarct. BRAIN PARENCHYMA: Normal duvla-white matter differentiation. SUBDURAL SPACE: No bleed. BASAL GANGLIA AND PINEAL GLAND: Unremarkable VENTRICLES: Symmetric and normal in size. CEREBELLUM AND BRAINSTEM: No space-occupying mass, hemorrhage or acute infarct. CEREBELLOPONTINE ANGLES: No lesion found. ORBITS: No intraorbital mass. VESSELS: Unremarkable SKULL BASE: Unremarkable INCLUDED SINUSES AT SKULL BASE: Clear SKULL AND SKIN: There is extracalvarial subcutaneous hematoma measure about 2 x 0.6 cm, no associated skull fracture or intracranial bleed. CT/CT head/brain wo IV con IMPRESSION: Extracalvarial right frontal subcutaneous hematoma 2 x 0.6 cm, no associated skull fracture or intracranial bleed.
[2021-10-29 12:55] VITALS: BP 166/89; PULSE 66; RESP 14; TEMP 36.7; O2SAT 99; BMI 23.5
--- NOTE | 2021-10-29 13:53 | ED_ITS ---
HPI - Fall General Chief Complaint: Fall Stated Complaint: fell 9 days ago head inj Time Seen by Provider: 10/29/21 13:41 Source: patient Mode of arrival: ambulatory Limitations: no limitations History of Present Illness HPI Narrative: 66-year-old female who presents emergency department who presents emergency department for evaluation of fall 9 days prior with head injury. The patient has a history of cerebral palsy and states she falls frequently. She states she fell out of bed in the middle the night 9 days prior hit her head. She had no loss of consciousness. She states that initially she had a headache with some nausea but her symptoms of since resolved. The patient had a knee injection 1 day prior and the orthopedic provider contacted the patient's PCP who was concerned about the patient's head injury the patient was referred to the emergency department for evaluation. MD complaint: fall Onset (ago): day(s) (9) Fall from: out of bed Fall witnessed: no Place fall occurred: home Loss of consciousness: none Symptoms prior to fall: other (Headache) Location of injury: head Severity: mild Associated symptoms (after fall): headache Related Data Home Medications Medication Instructions Recorded Confirmed albuterol sulfate 2.5 mg/3 mL 2.5 mg inhalation Q4H PRN 11/14/19 09/25/21 (0.083 %) solution for nebulization Shortness Of Breath anastrozole 1 mg tablet (Arimidex) 1 tab PO DAILY 10/22/20 09/25/21 montelukast 10 mg tablet 10 mg PO BEDTIME 06/18/21 09/25/21 ondansetron 4 mg disintegrating 1 tab PO Q6H PRN nausea/vomiting 06/18/21 09/25/21 tablet ibuprofen 800 mg tablet 800 mg PO TID 07/30/21 09/25/21 Previous Rx's Medication Instructions Recorded Paxil CR 25 mg tablet,extended 50 mg PO DAILY #180 tabs 09/11/20 release (paroxetine HCl) ferrous sulfate 325 mg (65 mg 325 mg PO BID #60 tabs 05/14/21 iron) tablet (iron) omeprazole 20 mg capsule,delayed 20 mg PO DAILY 30 days #30 caps 05/27/21 release potassium chloride 20 mEq 20 meq PO DAILY #20 tabs 07/10/21 tablet,extended release Paxil CR 12.5 mg tablet,extended 12.5 mg PO DAILY #90 tabs 07/21/21 release (paroxetine HCl) lisinopril 20 mg tablet 20 mg PO DAILY #90 tabs 07/30/21 amlodipine 5 mg tablet 5 mg PO DAILY #90 tabs 08/28/21 acetaminophen 650 mg 650 mg PO Q12H 30 days #60 tabs 09/05/21 tablet,extended release docusate sodium 100 mg capsule 100 mg PO BID 30 days #60 caps 09/05/21 (Colace) cyanocobalamin (vitamin B-12) 1,000 mcg PO DAILY #90 tabs 09/15/21 1,000 mcg tablet (Vitamin B-12) cephalexin 500 mg capsule 500 mg PO QID 7 days #28 caps 09/16/21 gabapentin 300 mg capsule 900 mg PO TID #270 caps 09/18/21 Allergies Allergy/AdvReac Type Severity Reaction Status Date / Time No Known Allergies Allergy Verified 09/25/21 10:51 [No Known Allergies*] Review of Systems Review of Systems: Yes all other systems are reviewed and are negative [facility] Past Medical History [facility] Narrative: Past medical history: She denies tobacco, alcohol and drug use. She states she lives independently. Medical History Asthma Cerebral palsy Colonic stricture Hx of flexible sigmoidoscopy Invasive lobular carcinoma of breast in female MDD (major depressive disorder) Prolapse of intestine Surgical History History of gastric surgery History of lumpectomy of right breast History of open sigmoidectomy Family History Family History Father Family history unknown Mother Breast cancer Brother No problems noted. Sister History of leukemia Social History Social History Household Members: None Housing: Apartment Are you a primary childcare director to a significant other at home: No Do you presently have visiting nurse or other home services: Yes Alcohol intake: former Patient Tobacco Use Status: Never used Tobacco e-Cigarette/Vaping Use: Never Used Second Hand Smoke Exposure: No Advance Directives: Yes Advance Directives on File: Yes Advance Directives Date on File: 10/01/20 service: No Current occupational status: retired Cognitive needs: Yes (walker) Hearing needs: No Vision needs: Yes (reading glasses) Physical Exam Vital Signs: Vital Signs: Last Vital Signs Temp 98.1 F 10/29/21 12:55 Pulse 66 10/29/21 12:55 Resp 14 10/29/21 12:55 BP 166/89 H 10/29/21 12:55 Pulse Ox 99 10/29/21 12:55 O2 Del Method 10/29/21 12:55 BMI result Body Mass Index 23.5 Const: Other: Awake, alert, female patient, very pleasant and cooperative, patient's speech and movements are consistent with her cerebral palsy, she answers all questions appropriately Orientation/consciousness: oriented to person and oriented to place HEENT: Other: The patient has a 3 x 3 cm hematoma to the right frontal parietal area which is tender to palpation, the patient has ecchymosis over her right forehead, right periorbital area and right side of her neck. Ears: external ears normal General nose exam: Normal external nose present Face and sinus: Yes normal facial exam Mouth: Normal oral and palatal mucosa present Throat: Yes posterior oropharynx normal Eyes: General: appearance normal, both eyes and all related structures Pupils: Equal, round and reactive pupils present Neck: Neck: Yes normal visual inspection, Yes no lymphadenopathy, Yes trachea midline and Yes supple Chest: Chest palpation & inspection: normal inspection of the chest and normal palpation of entire chest wall Resp: Effort & Inspection: normal respiratory effort and able to speak in complete sentences Auscultation: clear to auscultation bilaterally Cardio: Rate: regular rate Rhythm: regular rhythm Heart sounds: S1 normal heart sound present, S2 normal heart sound present and no murmurs GI: Inspection: Yes normal to inspection Palpation (GI): Soft to palpation, nontender and no guarding Auscultation: normal bowel sounds : General: Yes no CVA tenderness Back/Spine/Pelvis: Back: no CVA tenderness Skin: General skin exam: no rashes or lesions noted Neuro: General: oriented to person and oriented to place Cranial nerves: Yes CN's II-XII intact bilaterally and Yes Equal, round and reactive pupils present Cognition (Neuro): normal cognition Motor exam (neuro): 5/5 motor strength present throughout Extrem: General: Yes normal to inspection Psych: Appearance: grossly normal Speech and movement: Normal speech and movement present Affect: normal affect Attitude: cooperative Thought process: Normal thought process present Thought content: Normal thought content present Course Course Course Narrative: 66-year-old female who presents emergency department for evaluation of head injury and headache secondary to a fall 9 days prior, patient does have significant right-sided ecchymosis and hematoma to the right frontal parietal area of her scalp. Given these findings, I did order a CT scan of the brain to rule out fracture and bleed. 1521: CT scan of the brain revealed no acute fracture or bleed, the radiologist did note a scalp hematoma which correlates with her examination. I did discuss this with the patient. The patient was given printed and verbal instructions discharged home. Discharge Plan Discharge Clinical Impression: Fall Qualifiers: Encounter type: initial encounter Qualified Code(s): W19.XXXA - Unspecified fall, initial encounter CHI (closed head injury) Qualifiers: Encounter type: initial encounter Qualified Code(s): S09.90XA - Unspecified injury of head, initial encounter Hematoma of left parietal scalp Qualifiers: Encounter type: initial encounter Qualified Code(s): S00.03XA - Contusion of scalp, initial encounter Patient Disposition: Home, Self-Care Instructions: Head Injury (ED) Additional Instructions: The CT scan of your head revealed no skull fracture no bleed which is very reassuring. Take ibuprofen 200 mg pills, 2 pills every 6 hours as needed for pain. Take Tylenol (acetaminophen) 500 mg pills, 2 pills every 4 to 6 hours as needed for pain. Follow-up with your doctor in 2 days. Please return to the emergency department if your symptoms get worse or if you develop any symptoms that are concerning to you. Prescriptions: No Action paroxetine HCl [Paxil CR] 25 mg tablet extended release 24 hr 50 mg PO DAILY Qty: 180 2RF Rx Instructions: take with paxil cr 12.5 mg paroxetine HCl [Paxil CR] 12.5 mg tablet extended release 24 hr 12.5 mg PO DAILY Qty: 90 3RF amlodipine 5 mg tablet 5 mg PO DAILY Qty: 90 1RF gabapentin 300 mg capsule 900 mg PO TID Qty: 270 3RF anastrozole [Arimidex] 1 mg tablet 1 tab PO DAILY ferrous sulfate [iron] 325 mg (65 mg iron) Tablet 325 mg PO BID Qty: 60 3RF cyanocobalamin (vitamin B-12) [Vitamin B-12] 1,000 mcg Tablet 1,000 mcg PO DAILY Qty: 90 3RF ondansetron 4 mg tablet,disintegrating 1 tab PO Q6H PRN (Reason: nausea/vomiting) montelukast 10 mg tablet 10 mg PO BEDTIME potassium chloride 20 mEq tablet extended release 20 meq PO DAILY Qty: 20 0RF cephalexin 500 mg capsule 500 mg PO QID 7 Days Qty: 28 0RF albuterol sulfate 2.5 mg /3 mL (0.083 %) solution for nebulization 2.5 mg inhalation Q4H PRN (Reason: Shortness Of Breath) ibuprofen 800 mg tablet 800 mg PO TID lisinopril 20 mg tablet 20 mg PO DAILY Qty: 90 0RF acetaminophen 650 mg tablet extended release 650 mg PO Q12H 30 Days Qty: 60 1RF docusate sodium [Colace] 100 mg capsule 100 mg PO BID 30 Days Qty: 60 3RF omeprazole 20 mg capsule,delayed release(DR/EC) 20 mg PO DAILY 30 Days Qty: 30 3RF
== END 2021-10-29 16:01 | disposition home or self-care (01) ==
PROVIDERS: Emergency Provider Emergency Medicine Emergency Medical Services; PCP Physician Assistant
DX: S09.90XA Unspecified injury of head, initial encounter (principal); S00.83XA Contusion of other part of head, initial encounter; W06.XXXA Fall from bed, initial encounter; G80.9 Cerebral palsy, unspecified; Z79.899 Other long term (current) drug therapy; Y93.84 Activity, sleeping; Y92.032 Bedroom in apartment as the place of occurrence of the external cause; Y99.9 Unspecified external cause status
CPT/HCPCS: 70450; 99283; 99284

== ENCOUNTER 2021-11-04 14:36 | Emergency (ER) | payer OTHER, SELFPAY ==
--- NOTE | ~2021-11-04 | CT_ITS ---
EXAMINATION: CT HEAD WITHOUT CONTRAST CT FACIAL BONES WITHOUT CONTRAST CT CERVICAL SPINE WITHOUT CONTRAST CLINICAL INFORMATION: Fall. COMPARISON: CT head 10/29/2021, 06/19/2021. CT cervical spine 07/11/2019 TECHNIQUE: Imaging was performed from the skull base to vertex without intravenous administration of contrast. In addition, helical noncontrast CT imaging was acquired through the cervical spine and facial bones and source images were reviewed along with axial reconstructions and sagittal and coronal MPRs. [This CT examination was performed using dose optimization techniques as appropriate, variously including the following: *Automated exposure control *Adjustment of mA and/or kV according to patient size (this includes techniques or standardized protocols for targeted exams where dose is matched to indication/reason for exam; i.e. extremities or head) *Use of iterative reconstruction technique] DLP: 1202 mGy-cm FINDINGS: HEAD: Scalp hematoma right frontal region. There is no skull fracture. No intracranial mass, hemorrhage, or midline shift is visualized. The ventricles and sulci are normal. No extra-axial collections are identified. FACIAL BONES: There is no evidence of an acute facial bone fracture. The paranasal sinuses are well aerated. =. The orbits are unremarkable in appearance. CERVICAL SPINE: Status post fusion with anterior plate and screw C4-C5. There is also bony union of C5-C6 vertebrae. Disc height narrowing and vertebral endplate spur and subchondral cyst at C6-C7. Bilateral uncinate process posterior spurs and mild disc height narrowing at L3-L4. There is multilevel bilateral facet joint arthropathy. The facet joint arthropathies no significant the upper cervical spine. No acute abnormality. No fracture or subluxation. No prevertebral soft tissue swelling. CT/CT cervical spine wo IV con IMPRESSION: 1. No acute intracranial process or discrete facial bone fracture. 2. No acute cervical spine fracture or traumatic subluxation. Status post fusion C4-C6. Multilevel degenerative spondylosis spine.
[2021-11-04 14:49] VITALS: BP 144/90; BP 152/89; PULSE 80; PULSE 86; RESP 17; TEMP 36.4; O2SAT 97; BMI 24.0
--- NOTE | 2021-11-04 15:27 | PC.NURSE ---
pt respiratory physician calling to leave phone number for any updates and if pt needs a ride home later. Codie Anthony [phone]
--- NOTE | 2021-11-04 18:14 | MHC.CM.ED ---
CM was consulted by Sanjiv CHERY to assess patient needs at home and if she requires additional services. Pt has C.P. Pt fell on 10/29 and fell today. Pt has been medically cleared. Pt tells CM that she has been falling for 50 years. 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 Pt has friends who help her with shopping and MD visits. Pt can call them if she needs help. Pt is refusing any further help. Pt is A&Ox4. Pt lives alone. Uses a walker and has services with [facility] through [facility].[employer] x[employer]. [facility] and HCP on file. HCP/friend Lizbeth Bledsoe ([phone]). [facility]-DNR/DNI. Pt aware that she can speak with her home care liaison at [facility] if she needs more help at home. Pt is requesting discharge. Sanjiv CHERY aware of above conversation. Will discharge pt. KASSY Hunter and Nadine aware. CM called Lizbeth, HCP/Friend. She will transport patient home. Pt aware. CM will follow for any further D/C needs.
--- NOTE | 2021-11-04 18:15 | ED.GENADULT ---
HPI - General Adult General Chief complaint: Fall Stated complaint: FALL,+HS,-THINNERS,-LOC Time Seen by Provider: 11/04/21 15:02 Source: patient Mode of arrival: ambulatory Limitations: no limitations History of Present Illness HPI narrative: 56-year-old female with pmh of cerebral palsy presents to ED for falling hitting head. Patient states she tripped over her sneakers and hospice while walking. Patient denies any chest pain, shortness of breath, abdominal pain, or dizziness before falling. Related Data Home Medications Medication Instructions Recorded Confirmed albuterol sulfate 2.5 mg/3 mL 2.5 mg inhalation Q4H PRN 11/14/19 11/06/21 (0.083 %) solution for nebulization Shortness Of Breath anastrozole 1 mg tablet (Arimidex) 1 tab PO DAILY 10/22/20 11/06/21 montelukast 10 mg tablet 10 mg PO BEDTIME 06/18/21 11/06/21 ondansetron 4 mg disintegrating 1 tab PO Q6H PRN nausea/vomiting 06/18/21 11/06/21 tablet Previous Rx's Medication Instructions Recorded ferrous sulfate 325 mg (65 mg 325 mg PO BID #60 tabs 05/14/21 iron) tablet (iron) omeprazole 20 mg capsule,delayed 20 mg PO DAILY 30 days #30 caps 05/27/21 release potassium chloride 20 mEq 20 meq PO DAILY #20 tabs 07/10/21 tablet,extended release Paxil CR 12.5 mg tablet,extended 12.5 mg PO DAILY #90 tabs 07/21/21 release (paroxetine HCl) amlodipine 5 mg tablet 5 mg PO DAILY #90 tabs 08/28/21 acetaminophen 650 mg 650 mg PO Q12H 30 days #60 tabs 09/05/21 tablet,extended release docusate sodium 100 mg capsule 100 mg PO BID 30 days #60 caps 09/05/21 (Colace) cyanocobalamin (vitamin B-12) 1,000 mcg PO DAILY #90 tabs 09/15/21 1,000 mcg tablet (Vitamin B-12) cephalexin 500 mg capsule 500 mg PO QID 7 days #28 caps 09/16/21 gabapentin 300 mg capsule 900 mg PO TID #270 caps 09/18/21 Paxil CR 25 mg tablet,extended 50 mg PO DAILY #180 tabs 11/01/21 release (paroxetine HCl) ibuprofen 800 mg tablet 800 mg PO ONCE 30 days #30 tabs 11/06/21 lisinopril 20 mg tablet 20 mg PO DAILY 90 days #90 tabs 11/06/21 Allergies Allergy/AdvReac Type Severity Reaction Status Date / Time No Known Allergies Allergy Verified 11/06/21 11:30 [No Known Allergies*] Review of Systems Review of Systems: Fall. Yes all other systems are reviewed and are negative PMFSH Past Medical History Medical History Asthma Cerebral palsy Colonic stricture Hx of flexible sigmoidoscopy Invasive lobular carcinoma of breast in female MDD (major depressive disorder) Prolapse of intestine Surgical History History of gastric surgery History of lumpectomy of right breast History of open sigmoidectomy Family History Family History Father Family history unknown Mother Breast cancer Brother No problems noted. Sister History of leukemia Social History Social History Household Members: None Housing: Apartment Are you a primary health care technician to a significant other at home: No Do you presently have visiting nurse or other home services: Yes Alcohol intake: former Patient Tobacco Use Status: Never used Tobacco e-Cigarette/Vaping Use: Never Used Second Hand Smoke Exposure: No Advance Directives Date on File: 09/01/21 service: No Current occupational status: retired Cognitive needs: Yes (walker) Hearing needs: No Vision needs: Yes (reading glasses) Physical Exam ED Vital Signs: Vital Signs - 24 hr 11/04/21 14:49 Temperature 97.6 F Pulse Rate 86 Respiratory Rate 17 Blood Pressure 152/89 H Pulse Oximetry 97 Oxygen Delivery Method Room Air BMI result Body Mass Index 24.0 Const General: cooperative, healthy appearing, comfortable, no acute distress, well developed, alert and awake [facility] Head: Yes normal to inspection, Yes No palpable skull fracture present and Yes normocephalic Head images: 1. Positive for ecchymosis and tenderness on palpation. Eyes General: appearance normal, both eyes and all related structures Neck Neck: Yes normal visual inspection, Yes full ROM, Yes no lymphadenopathy, Yes no meningeal signs, Yes trachea midline, Yes supple, No anterior neck swelling and No tender Chest Chest palpation & inspection: normal inspection of the chest and normal palpation of entire chest wall Resp Effort & Inspection: normal respiratory effort and able to speak in complete sentences Auscultation: clear to auscultation bilaterally Cardio Jugular venous distension: no JVD Heart sounds: S1 normal heart sound present and S2 normal heart sound present GI Inspection: Yes normal to inspection and No abdominal wall ecchymosis Palpation (GI): Soft to palpation, not firm, nontender, no guarding and not rigid General: No CVA tenderness and Yes no CVA tenderness Back/Spine/Pelvis Back: no CVA tenderness, No CVA tenderness and No back tenderness Skin General skin exam: no rashes or lesions noted and elasticity normal Neuro Other: Patient at baseline has slurred speech due to cerebral palsy. Patient gait is at baseline. Negative for facial droop or paralysis of extremities. All extremities equal strength 5+. [id number] and rapid hand movement intact. Negative Romberg General: no meningeal signs Extrem General: Yes normal to inspection and Yes full ROM Psych Appearance: grossly normal, well kempt and not disheveled Course Course Course Narrative: Imaging ordered. Mechanical fall no labs indicated. Reevaluation(s) Reevaluation #1: Images normal. applications engineering manager Corina went to evaluate patient in regards to see if patient needs more help at home. Patient states and informed her that she has home services and does not need any more help. Patient would like to be discharged. Time: 18:23 Discharge Plan Discharge Clinical Impression: Head injury Patient Disposition: Home, Self-Care Instructions: Fall Prevention for Older Adults (ED), Head Injury (ED) Additional Instructions: Your images came back normal. Return to the ED for severe headache, nausea, vomiting, chest pain, shortness of breath, abdominal pain, bloody urine, blood in stool, vomiting blood, or any other concerning symptoms. [id number] Tylenol Motrin can be taken. Please follow up with PCP. Prescriptions: No Action paroxetine HCl [Paxil CR] 12.5 mg tablet extended release 24 hr 12.5 mg PO DAILY Qty: 90 3RF amlodipine 5 mg tablet 5 mg PO DAILY Qty: 90 1RF gabapentin 300 mg capsule 900 mg PO TID Qty: 270 3RF paroxetine HCl [Paxil CR] 25 mg tablet extended release 24 hr 50 mg PO DAILY Qty: 180 2RF Rx Instructions: take with paxil cr 12.5 mg anastrozole [Arimidex] 1 mg tablet 1 tab PO DAILY ferrous sulfate [iron] 325 mg (65 mg iron) Tablet 325 mg PO BID Qty: 60 3RF cyanocobalamin (vitamin B-12) [Vitamin B-12] 1,000 mcg Tablet 1,000 mcg PO DAILY Qty: 90 3RF ondansetron 4 mg tablet,disintegrating 1 tab PO Q6H PRN (Reason: nausea/vomiting) montelukast 10 mg tablet 10 mg PO BEDTIME potassium chloride 20 mEq tablet extended release 20 meq PO DAILY Qty: 20 0RF cephalexin 500 mg capsule 500 mg PO QID 7 Days Qty: 28 0RF albuterol sulfate 2.5 mg /3 mL (0.083 %) solution for nebulization 2.5 mg inhalation Q4H PRN (Reason: Shortness Of Breath) ibuprofen 800 mg tablet 800 mg PO ONCE 30 Days Qty: 30 3RF lisinopril 20 mg tablet 20 mg PO DAILY 90 Days Qty: 90 1RF acetaminophen 650 mg tablet extended release 650 mg PO Q12H 30 Days Qty: 60 1RF docusate sodium [Colace] 100 mg capsule 100 mg PO BID 30 Days Qty: 60 3RF omeprazole 20 mg capsule,delayed release(DR/EC) 20 mg PO DAILY 30 Days Qty: 30 3RF Interventions: ED Discharge Assessment Last Done: 11/04/21 18:43 Discharge Date/Time: 11/04/21 18:44 Print Language: Bengali
== END 2021-11-04 18:44 | disposition home or self-care (01) ==
PROVIDERS: Emergency Provider Emergency Medicine; PCP Physician Assistant
DX: S00.91XA Abrasion of unspecified part of head, initial encounter (principal); S19.9XXA Unspecified injury of neck, initial encounter; M54.2 Cervicalgia; R51.9 Headache, unspecified; W01.0XXA Fall on same level from slipping, tripping and stumbling without subsequent striking against object, initial encounter; Y93.9 Activity, unspecified; Y92.9 Unspecified place or not applicable; Y99.9 Unspecified external cause status; Z79.899 Other long term (current) drug therapy
CPT/HCPCS: 70450; 70486; 72125; 99282; 99284

== ENCOUNTER → 2021-11-13 09:40 | Outpatient (BNVA) | payer OTHER, SELFPAY | PROVIDERS: PCP Physician Assistant; Visit Provider Surgery | DX: C50.911 Malignant neoplasm of unspecified site of right female breast (principal); Z17.0 Estrogen receptor positive status [ER+] | CPT/HCPCS: 99212 ==

== ENCOUNTER 2022-01-07 10:36 | Outpatient (REF) | payer OTHER, SELFPAY ==
[2022-01-07 11:15] LABS: Hematocrit 40.4 % (37.0-47.0); Hemoglobin 12.7 g/dl (12.0-16.0); Mean Corpuscular HGB Conc 31.4 g/dl (31.0-35.0); Mean Corpuscular Hemoglobin 28.3 pg (27.0-33.0); Mean Corpuscular Volume 90.2 fL (80.0-98.0); Mean Platelet Volume 9.5 fL (9.4-12.3); Platelet Count 201 X10*3/uL (160-400); Red Blood Count 4.48 X10*6/uL (4.20-5.50); Red Cell Distribution Width 14.6 % (11.0-16.0); White Blood Count 5.5 X10*3/uL (4.8-10.8)
[2022-01-07 12:03] LABS: TSH reflex Free T4 1.57 uIU/mL (0.32-4.0)
[2022-01-07 12:13] LABS: Alanine Aminotransferase 16 U/L (0-31); Albumin Level 4.1 g/dL (3.5-5.0); Alkaline Phosphatase 65 U/L (39-117); Anion Gap 15 (12-20); Aspartate Amino Transferase 19 U/L (5-31); Bilirubin Total 0.3 mg/dL (0.0-1.0); Blood Urea Nitrogen 12 mg/dL (9-16); Carbon Dioxide 25 mmol/L (22-29); Chloride 108 mmol/L (96-108); Cholesterol 194 mg/dL; Estimated Glomerular Filt Rate > 60; Glucose Fasting 94 mg/dL (60-99); HDL Cholesterol 86 mg/dL; LDL Cholesterol Calculated 93 mg/dl; Potassium 4.5 mmol/L (3.3-5.1); Sodium 143 mmol/L (135-145); Total Protein 6.4 g/dL (6.5-8.0); Triglycerides 76 mg/dL
[2022-01-07 12:15] LABS: Appearance Urine Clear; Color Urine Dark Yellow; Glucose Urine UA Negative (Negative); Leukocyte Esterase Urine Small (1+) (Negative); Nitrite Urine Negative (Negative); PH 5.5 (5.0-9.0); Specific Gravity - Urine 1.025 (1.005-1.025); UMIC TRIGGER UACC YES; Urine Blood Negative (Negative); Urine Ketones Negative (Negative); Urine Protein Trace mg/dL (Neg-Trace)
[2022-01-07 12:29] LABS: Bacteria Urine None Seen (None Seen); Calcium Oxalate Crystals Urine Present; Hyaline Casts Urine 0-2 /LPF (0-2); Squamous Epithelial Cell Urine 0-2 /HPF (0-2); UACC Culture Trigger YES
[2022-01-07 13:05] LABS: Creatinine Urine 257.84 mg/dL
== END 2022-01-07 10:37 | disposition home or self-care (01) ==
LOC: HO.LAB 10:36
PROVIDERS: PCP Physician Assistant; Visit Provider Physician Assistant
DX: I10 Essential (primary) hypertension (principal)
CPT/HCPCS: 36415; 80053; 80061; 81001; 81003; 82043; 84443; 85027; 87086

== ENCOUNTER 2022-03-04 12:28 | Outpatient (REF) | payer OTHER, SELFPAY ==
--- NOTE | ~2022-03-04 | MM_ITS ---
EXAMINATION: MM DIAGNOSTIC DIGITAL BREAST TOMOSYNTHESIS, BILATERAL CLINICAL INFORMATION: One-year follow up for breast cancer. COMPARISON: Mammography: 03/03/2021 and studies dating back to 02/12/2015. TECHNIQUE: Digital breast tomosynthesis is performed in both the craniocaudal and mediolateral oblique views along with computer-aided detection (CAD). Synthesized 2D images are generated from the tomosynthesis. Additional spot magnification views of the right breast in craniocaudal, exaggerated craniocaudal, and 90 degree mediolateral views performed. Left spot magnification view and 90 degree mediolateral projection. FINDINGS: The breasts are heterogeneously dense, which may obscure small masses (ACR BI-RADS breast composition Category c). There is architectural distortion seen from previous surgery about the upper outer aspect of the right breast. There are some stable scattered calcifications. No new more suspicious grouping of microcalcifications or new suspicious mass is appreciated. Results are provided to the patient at time of visit by the technologist. MM/MM tomosynthesis diagnostic BI IMPRESSION: There are no significant changes from prior study. ASSESSMENT: BI-RADS 2: Benign. RECOMMENDATION: Routine annual mammography screening due in 12 months. This patient's information was entered into a reminder system with a target due date for their next mammogram.
== END 2022-03-04 12:29 | disposition home or self-care (01) ==
LOC: HO.MAMMO 12:28
PROVIDERS: PCP Physician Assistant; Visit Provider Internal Medicine
DX: R92.1 Mammographic calcification found on diagnostic imaging of breast (principal)
CPT/HCPCS: 77062; 77066

== ENCOUNTER 2022-03-16 12:39 | Emergency (ER) | payer OTHER, SELFPAY ==
--- NOTE | ~2022-03-16 | CT_ITS ---
EXAMINATION: NONCONTRAST HEAD CT NONCONTRAST CERVICAL SPINE CT INDICATION INFORMATION: Fall, head strike COMPARISON: Head and cervical spine CT 11/04/2021 TECHNIQUE: Separate noncontrast CT examinations of the head and cervical spine were performed. Coronal and sagittal images were created for each examination at the technologist workstation. This CT examination was performed using dose optimization techniques as appropriate, variously including the following: *Automated exposure control *Adjustment of mA and/or kV according to patient size (this includes techniques or standardized protocols for targeted exams where dose is matched to indication/reason for exam; i.e. extremities or head) *Use of iterative reconstruction technique DLP: 1478 mGy-cm FINDINGS: HEAD: Exam quality degraded by mild motion artifact. No intra or extra-axial fluid collection, hemorrhage, or mass. No ventriculomegaly. No midline shift or herniation. Basal cisterns are patent. Robles-white matter differentiation is maintained. No territorial encephalomalacia. No significant volume loss. Small patchy focus of hypoattenuation in the right parietal subcortical white matter, nonspecific and unchanged. Right anterior frontal scalp swelling/small hematoma. No calvarial fracture. The mastoid air cells and visualized portions of the paranasal sinuses are well aerated. CERVICAL SPINE: Alignment: Unchanged alignment with mild grade 1 anterolisthesis at C2-C3, C3-C4, and C7-T1. Vertebra: No acute fracture. No prevertebral soft tissue swelling. Degenerative disc disease: Status post C4-C5 ACDF with low-profile fixation. Solid ankylosis of the C5-C6 vertebra. Unchanged multilevel degenerative disc disease characterized by disc height loss, endplate sclerosis and proliferative change most advanced at C6-C7. Multilevel bilateral facet arthrosis. Other findings: No cervical lymphadenopathy. Visualized major salivary glands and thyroid gland are unremarkable. Visualized lung apices are clear. CT/CT cervical spine wo IV con IMPRESSION: 1. No intracranial hemorrhage or calvarial fracture. 2. Right anterior frontal scalp swelling/hematoma. 3. No traumatic subluxation or acute cervical spine fracture.
--- NOTE | ~2022-03-16 | CT_ITS ---
EXAMINATION: CT ABDOMEN AND PELVIS WITHOUT CONTRAST CLINICAL INFORMATION: Low back pain. Fall. Pain in coccyx. COMPARISON: CT scan abdomen pelvis 06/18/2021 TECHNIQUE: Multidetector volumetric imaging was performed from the superior aspect of the liver through the pubic symphysis. Sagittal and coronal reformatted images were obtained on the technologist's workstation. This CT examination was performed using dose optimization techniques as appropriate, variously including the following: *Automated exposure control *Adjustment of mA and/or kV according to patient size (this includes techniques or standardized protocols for targeted exams where dose is matched to indication/reason for exam; i.e. extremities or head) *Use of iterative reconstruction technique DLP: 489.02+4.87 mGy-cm FINDINGS: LUNG BASES: The visualized lung bases are unremarkable. LIVER, GALLBLADDER, AND BILIARY TREE: Redemonstration of multiple hepatic cysts unchanged since prior study. No new or suspicious liver lesions. No intrahepatic bile duct dilatation. The gallbladder is unremarkable with no evidence of radiopaque gallstones, gallbladder wall thickening, or obvious pericholecystic inflammatory changes. PANCREAS: Unremarkable. SPLEEN: Unremarkable. ADRENAL GLANDS: Unremarkable. 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 There are a few scattered small nonobstructive calculi in both kidneys. There is no hydronephrosis. No ureteral stone. BLADDER: Unremarkable. ABDOMINAL WALL/GASTROINTESTINAL TRACT: There are 2 abdominal wall hernias. There is a fat-containing umbilical hernia measuring 2.6 cm transverse. There is also a ventral wall hernia. 11 cm caudal from the umbilicus at the midline containing a knuckle of nonobstructive small bowel. Axial image 547/751 series 26. This does not cause obstruction of the bowel. This hernia was also present on the prior study of 06/18/2021. Surgical anastomosis at the distal sigmoid. The entire colon is moderately distended to the level the anastomosis. Relative narrowing of the lumen at the anastomosis. This is similar prior CAT scan 06/18/2021. There is no colonic mass evident. Cecum measures 6.5 cm transverse. There is no bowel wall thickening /edema. There is a large volume of stool in the colon. The appendix is nonvisualized . There is no inflammation the mesentery. The small bowel loops are unremarkable. The stomach is normal. There is no hiatal hernia. ABDOMINAL WALL: Fat-containing umbilical hernia measuring 2.6 cm transverse. LYMPH NODES: Normal. VASCULAR: Vascular calcification of aorta. No aneurysm. PELVIC VISCERA: Status post hysterectomy. OSSEOUS STRUCTURES: Status post fusion with transpedicular screws L4-L5. Disc spacer at L4-L5. Multilevel degenerative spondylosis spine. No acute osseous adenopathy. No fracture of the coccyx sacrum. CT/CT abdomen pelvis wo IV con IMPRESSION: 1. No acute abnormality CT scan abdomen pelvis. 2. Multiple hepatic cysts unchanged since prior CAT scan 06/18/2021. 3. Nonobstructive bilateral renal calculi. No hydronephrosis. 4. Status post partial sigmoid resection with anastomosis. The colon is moderately distended to the level the anastomosis. There is no bowel wall thickening or edema. Large volume of stool in colon. 5. Ventral wall hernia containing a knuckle of nonobstructive small bowel. This was also present on the prior CAT scan 06/18/2021. 6. Status post hysterectomy. 7. Status post fusion L4-L5. Fleischner guidelines were followed.
--- NOTE | 2022-03-16 12:41 | ED_ITS ---
HPI - General Adult General Chief complaint: Fall Stated complaint: MULTI FALLS WEEK AG, COCCYX PAIN PER EMS Time Seen by Provider: 03/16/22 12:41 Source: patient and EMS Mode of arrival: EMS Limitations: no limitations History of Present Illness HPI narrative: Patient is a 66 year old assigned female at with a history of cerebral palsy presenting to the emergency department today with low back pain after a f all. Patient states that she has frequent falls at home despite using her walker due to her cerebral palsy. Patient states that she is having low back pain still after her fall 1 week ago. Patient denies any dizziness, lightheadedness, abdominal pain, nausea, vomiting, fever, chills, blurry vision, double vision, loss of vision, chest pain, difficulty breathing, shortness of breath, night sweats, pain with urination, increased urinary frequency, increased urinary urgency, blood in her urine or stool, syncope or a near syncopal episode, bowel incontinence, bladder incontinence, bowel retention, bladder retention, or any other complaints at this time. Onset (ago): week(s) (1) Location: back Radiation: non-radiation Severity: mild Severity scale (1-10): 3 Relieving factors: none Exacerbating factors: none Associated symptoms: denies other symptoms Treatments prior to arrival: none Related Data Home Medications Medication Instructions Recorded Confirmed albuterol sulfate 2.5 mg/3 mL 2.5 mg inhalation Q4H PRN 11/14/19 01/29/22 (0.083 %) solution for nebulization Shortness Of Breath ondansetron 4 mg disintegrating 1 tab PO Q6H PRN nausea/vomiting 06/18/21 01/29/22 tablet Previous Rx's Medication Instructions Recorded Paxil CR 12.5 mg tablet,extended 12.5 mg PO DAILY #90 tabs 07/21/21 release (paroxetine HCl) acetaminophen 650 mg 650 mg PO Q12H 30 days #60 tabs 09/05/21 tablet,extended release cyanocobalamin (vitamin B-12) 1,000 mcg PO DAILY #90 tabs 09/15/21 1,000 mcg tablet (Vitamin B-12) gabapentin 300 mg capsule 900 mg PO TID #270 caps 09/18/21 Paxil CR 25 mg tablet,extended 50 mg PO DAILY #180 tabs 11/01/21 release (paroxetine HCl) lisinopril 20 mg tablet 20 mg PO DAILY 90 days #90 tabs 11/06/21 omeprazole 20 mg capsule,delayed 20 mg PO DAILY 30 days #30 caps 12/04/21 release ferrous sulfate 325 mg (65 mg 325 mg PO BID #60 tabs 12/05/21 iron) tablet (iron) montelukast 10 mg tablet 10 mg PO QPM #90 tabs 12/20/21 anastrozole 1 mg tablet (Arimidex) 1 tab PO DAILY #90 tabs 01/16/22 docusate sodium 100 mg capsule 100 mg PO BID 30 days #60 caps 01/19/22 (Colace) fluticasone 100 mcg-salmeterol 50 1 inh inhalation BID 30 days #60 ea 01/29/22 mcg/dose blistr powdr for inhalation (Wixela Inhub) ibuprofen 800 mg tablet 800 mg PO BID 30 days #60 tabs 01/29/22 amlodipine 5 mg tablet 5 mg PO DAILY #90 tabs 02/23/22 Allergies Allergy/AdvReac Type Severity Reaction Status Date / Time No Known Allergies Allergy Verified 01/29/22 12:01 [No Known Allergies*] Review of Systems Constitutional: Constitutional: Reports no additional constitutional complaints, Denies chills, Denies fever(s) and Denies night sweats Eyes: Eyes: Reports no additional eye complaints, Denies blurry vision, Denies change in vision, Denies diplopia, Denies eye discharge, Denies loss of vision and Denies eye pain ENT: Denies dizziness Cardiovascular: Cardiovascular: Reports no additional cardiovascular complaints, Denies chest pain, Denies lightheadedness, Denies Loss of Consciousness and Denies dyspnea Respiratory: Respiratory: Reports no additional respiratory complaints and De nies dyspnea Gastrointestinal: Gastrointestinal: Reports no additional gastrointestinal complaints, Denies abdominal pain, Denies melena, Denies hematochezia, Denies change in bowel habits and Denies change in stool character Genitourinary: Genitourinary: Denies hematuria, Denies urinary frequency, Denies dysuria, Denies urinary incontinence, Denies urinary hesitancy and Denies urinary urgency Musculoskeletal: Musculoskeletal: Reports no additional musculoskeletal complaints, Reports back pain, Denies numbness and Denies tingling Neurologic: Denies dizziness, Denies loss of vision, Denies numbness and Denies tingling Psychiatric: Psychiatric: Reports no additional psychiatric complaints Endocrine: Endocrine: Reports no additional endocrine complaints Hematologic/Lymphatic: Hematologic/Lymphatic: Reports no additional hematologic/lymphatic complaints Allergic/Immunologic: Allergic/Immunologic: Reports no additional allergic/immunologic complaints PMFSH Past Medical History Attestation statement: The following information was validated with the patient. Source: old records reviewed and nursing notes reviewed Medical History Asthma Cerebral palsy Colonic stricture Hx of flexible sigmoidoscopy Invasive lobular carcinoma of breast in female MDD (major depressive disorder) Prolapse of intestine Surgical History History of gastric surgery History of lumpectomy of right breast History of open sigmoidectomy Family History Family History Father Family history unknown Mother Breast cancer Brother No problems noted. Sister History of leukemia Social History Social History Household Members: None Housing: Apartment Are you a primary family day care provider to a significant other at home: No Do you presently have visiting nurse or other home services: Yes Alcohol intake: former Patient Tobacco Use Status: Never used Tobacco e-Cigarette/Vaping Use: Never Used Second Hand Smoke Exposure: No Advance Directives: Yes Advance Directives on File: Yes Advance Directives Date on File: 09/01/21 service: No Current occupational status: retired Cognitive needs: Yes (walker) Hearing needs: No Vision needs: Yes (reading glasses) Physical Exam ED Vital Signs: Vital Signs - 24 hr 03/16/22 12:46 Temperature 98.6 F Pulse Rate 84 Respiratory Rate 18 Blood Pressure 137/91 H Pulse Oximetry 94 Oxygen Delivery Method Room Air BMI result Body Mass Index 21.6 Const General: cooperative, no acute distress, alert and awake Nutritional Appearance: well nourished Orientation/consciousness: patient oriented x3 Limitations: no limitations HENMT Head: Yes normal to inspection and Yes atraumatic Ears: hearing grossly normal bilaterally and external ears normal General nose exam: Normal external nose present, no nasal discharge noted and no epistaxis Face and sinus: Yes normal facial exam, No abrasion and No laceration Mouth: Normal oral and palatal mucosa present, no drooling and no muffled voice Eyes General: appearance normal, both eyes and all related structures Periorbital: periorbital findings normal Eyelids: Yes eyelids normal Conjunctivae: conjunctivae normal Pupils: Equal, round and reactive pupils present EOM: EOMs intact bilaterally Neck Neck: Yes normal visual inspection, Yes full ROM and Yes no lymphadenopathy Chest Chest palpation & inspection: normal inspection of the chest Resp Effort & Inspection: normal respiratory effort and able to speak in complete sentences Auscultation: clear to auscultation bilaterally Cardio Rate: regular rate Rhythm: regular rhythm GI Inspection: Yes normal to inspection Palpation (GI): Soft to palpation, not firm, nontender, no guarding and not rigid General: Yes no CVA tenderness Back/Spine/Pelvis Back: no CVA tenderness Cervical Spine: normal cervical lordosis and cervical ROM normal Thoracic/Lumbar Spine: thoraco-lumbar ROM normal Neuro General: patient oriented x3 and moves all extremities Cranial nerves: Yes Equal, round and reactive pupils present Cognition (Neuro): normal cognition Motor exam (neuro): 5/5 motor strength present throughout Sensory Exam: Normal double simultaneous stimulation for sensation Coordination: [id number] test normal Extrem General: Yes normal to inspection, Yes full ROM and Yes capillary refill normal Psych Appearance: grossly normal Mental Status: mental status grossly normal Affect: normal affect Attitude: cooperative Thought process: Normal thought process present Thought content: Normal thought content present Insight: Good insight present (Psych) Medications Administered Discontinued Medications Generic Name Dose Route Start Last Admin Trade Name Freq PRN Reason Stop Dose Admin Ketorolac Tromethamine 15 mg 03/16/22 15:06 03/16/22 15:27 Ketorolac Tromethamine 15 Mg/Ml Vial IM 03/16/22 15:07 15 mg ONCE ONE Administration Medical Decision Making Medical Decision Making [facility] Narrative: Patient is a 66 year old assigned female at with a history of cerebral palsy presenting to the emergency department today with low back pain. Patient's physical exam was unremarkable. Patient's head, c-spine, and abdomen/pelvis CT showed no acute process. I explained my physical exam findings as well as all test results to the patient. I answered all questions asked by the patient. Patient received IM Toradol which she stated helped her symptoms significantly. I stressed the importance of the patient taking her medication as prescribed. I stressed the importance of the patient following up with her primary care provider. I stressed the importance of the patient returning to the emergency department immediately if her symptoms were to worsen or if she were to develop any dizziness, shortness of breath, difficulty breathing, chest pain, blurry vision, loss of vision, nausea, vomiting, abdominal pain, fever, chills, back pain, or any other complaints. Patient verbalized agreement and understanding with this treatment plan and discharge. Differential Diagnosis Differential Diagnoses: The differential diagnosis associated with the p resentation includes fall, low back pain Radiology Impression Radiologist Impression: My interpretation is in agreement with the radiologist's impression of these imaging studies. Unchanged small subcentimeter sclerotic probable bone island in the dens dating back to 07/11/[address] Addendum Dictated By: Aneesh Thurman Addendum Signed By: <Electronically signed by Aneesh Thurman in OV> 03/16/22 1543 Addendum Cosigned By: DD/ /31/1244 TD/TT: / EXAMINATION: NONCONTRAST HEAD CT NONCONTRAST CERVICAL SPINE CT INDICATION INFORMATION: Fall, head strike COMPARISON: Head and cervical spine CT 11/04/2021 TECHNIQUE: Separate noncontrast CT examinations of the head and cervical spine were performed. Coronal and sagittal images were created for each examination at the technologist workstation. This CT examination was performed using dose optimization techniques as appropriate, variously including the following: *Automated exposure control *Adjustment of mA and/or kV according to patient size (this includes techniques or standardized protocols for targeted exams where dose is matched to indication/reason for exam; i.e. extremities or head) *Use of iterative reconstruction technique DLP: 1478 mGy-cm FINDINGS: HEAD: Exam quality degraded by mild motion artifact. No intra or extra-axial fluid collection, hemorrhage, or mass. No ventriculomegaly. No midline shift or herniation. Basal cisterns are patent. Robles-white matter differentiation is maintained. No territorial encephalomalacia. ?No significant volume loss. Small patchy focus of hypoattenuation in the right parietal subcortical white matter, nonspecific and unchanged. Right anterior frontal scalp swelling/small hematoma. No calvarial fracture. The mastoid air cells and visualized portions of the paranasal sinuses are well aerated. CERVICAL SPINE: Alignment: Unchanged alignment with mild grade 1 anterolisthesis at C2-C3, C3-C4, and C7-T1. Vertebra: No acute fracture. No prevertebral soft tissue swelling. Degenerative disc disease: Status post C4-C5 ACDF with low-profile fixation. Solid ankylosis of the C5-C6 vertebra. Unchanged multilevel degenerative disc disease characterized by disc height loss, endplate sclerosis and proliferative change most advanced at C6-C7. Multilevel bilateral facet arthrosis. Other findings: No cervical lymphadenopathy. Visualized major salivary glands and thyroid gland are unremarkable. Visualized lung apices are clear. CT/CT head/brain wo IV con IMPRESSION: 1.? No intracranial hemorrhage or calvarial fracture. 2.? Right anterior frontal scalp swelling/hematoma. 3.? No traumatic subluxation or acute cervical spine fracture. Dictated By: Beto Thurman Signed By: Electronically signed by Beto Thurman 03/16/22 1514 EXAMINATION: CT ABDOMEN AND PELVIS WITHOUT CONTRAST? CLINICAL INFORMATION: Low back pain. Fall. Pain in coccyx.? COMPARISON: CT scan abdomen pelvis 06/18/2021? TECHNIQUE: Multidetector volumetric imaging was performed from the superior aspect of the liver through the pubic symphysis. Sagittal and coronal reformatted images were obtained on the technologist's workstation.? This CT examination was performed using dose optimization techniques as appropriate, variously including the following: *Automated exposure control *Adjustment of mA and/or kV according to patient size (this includes techniques or standardized protocols for targeted exams where dose is matched to indication/reason for exam; i.e. extremities or head) *Use of iterative reconstruction technique DLP: 489.02+4.87 mGy-cm FINDINGS: LUNG BASES: The visualized lung bases are unremarkable.? LIVER, GALLBLADDER, AND BILIARY TREE: Redemonstration of multiple hepatic cysts unchanged since prior study. No new or suspicious liver lesions. No intrahepatic bile duct dilatation. ?The gallbladder is unremarkable with no evidence of radiopaque gallstones, gallbladder wall thickening, or obvious pericholecystic inflammatory changes.? PANCREAS: Unremarkable.? SPLEEN: Unremarkable.? ADRENAL GLANDS: Unremarkable.? 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 There are a few scattered small nonobstructive calculi in both kidneys. There is no hydronephrosis. No ureteral stone.? BLADDER: Unremarkable.? ABDOMINAL WALL/GASTROINTESTINAL TRACT: There are 2 abdominal wall hernias. There is a fat-containing umbilical hernia measuring 2.6 cm transverse. There is also a ventral wall hernia. 11 cm caudal from the umbilicus at the midline containing a knuckle of nonobstructive small bowel. Axial image 547/751 series 26. This does not cause obstruction of the bowel. This hernia was also present on the prior study of 06/18/2021. Surgical anastomosis at the distal sigmoid. The entire colon is moderately distended to the level the anastomosis. Relative narrowing of the lumen at the anastomosis. This is similar prior CAT scan 06/18/2021. There is no colonic mass evident. Cecum measures 6.5 cm transverse. There is no bowel wall thickening /edema. There is a large volume of stool in the colon. The appendix is nonvisualized . There is no inflammation the mesentery. The small bowel loops are unremarkable. The stomach is normal. There is no hiatal hernia.? ABDOMINAL WALL: Fat-containing umbilical hernia measuring 2.6 cm transverse.? LYMPH NODES: Normal. VASCULAR: Vascular calcification of aorta. No aneurysm. PELVIC VISCERA: Status post hysterectomy.? OSSEOUS STRUCTURES: Status post fusion with transpedicular screws L4-L5. Disc spacer at L4-L5. Multilevel degenerative spondylosis spine. No acute osseous adenopathy. No fracture of the coccyx sacrum. CT/CT abdomen pelvis wo IV con IMPRESSION: 1.? No acute abnormality CT scan abdomen pelvis. 2.? Multiple hepatic cysts unchanged since prior CAT scan 06/18/2021. 3.? Nonobstructive bilateral renal calculi. No hydronephrosis. 4.? Status post partial sigmoid resection with anastomosis. The colon is moderately distended to the level the anastomosis. There is no bowel wall thickening or edema. Large volume of stool in colon. 5.? Ventral wall hernia containing a knuckle of nonobstructive small bowel. This was also present on the prior CAT scan 06/18/2021. 6.? Status post hysterectomy. 7.? Status post fusion L4-L5. ? Fleischner guidelines were followed. Dictated By: Kareem Paulson MD Signed By: Electronically signed by Kareem Paulson MD 03/16/22 1529 Independent Historian Clinical information obtained from an independent historian. History obtained from or confirmed by: EMS Discharge Plan Discharge Clinical Impression: Fall Patient Disposition: Home, Self-Care Instructions: Fall Prevention for Older Adults (ED) Additional Instructions: Follow up with your primary care provider. Return to the emergency department immediately if your symptoms worsen or if you develop any dizziness, shortness of breath, difficulty breathing, chest pain, blurry vision, loss of vision, nausea, vomiting, abdominal pain, fever, chills, back pain, or any other complaints. Prescriptions: No Action paroxetine HCl [Paxil CR] 12.5 mg tablet extended release 24 hr 12.5 mg PO DAILY Qty: 90 3RF gabapentin 300 mg capsule 900 mg PO TID Qty: 270 3RF paroxetine HCl [Paxil CR] 25 mg tablet extended release 24 hr 50 mg PO DAILY Qty: 180 2RF Rx Instructions: take with paxil cr 12.5 mg omeprazole 20 mg capsule,delayed release(DR/EC) 20 mg PO DAILY 30 Days Qty: 30 3RF montelukast 10 mg tablet 10 mg PO QPM Qty: 90 3RF docusate sodium [Colace] 100 mg capsule 100 mg PO BID 30 Days Qty: 60 3RF amlodipine 5 mg tablet 5 mg PO DAILY Qty: 90 1RF cyanocobalamin (vitamin B-12) [Vitamin B-12] 1,000 mcg Tablet 1,000 mcg PO DAILY Qty: 90 3RF ferrous sulfate [iron] 325 mg (65 mg iron) Tablet 325 mg PO BID Qty: 60 3RF anastrozole [Arimidex] 1 mg tablet 1 tab PO DAILY Qty: 90 3RF ondansetron 4 mg tablet,disintegrating 1 tab PO Q6H PRN (Reason: nausea/vomiting) albuterol sulfate 2.5 mg /3 mL (0.083 %) solution for nebulization 2.5 mg inhalation Q4H PRN (Reason: Shortness Of Breath) lisinopril 20 mg tablet 20 mg PO DAILY 90 Days Qty: 90 1RF acetaminophen 650 mg tablet extended release 650 mg PO Q12H 30 Days Qty: 60 1RF ibuprofen 800 mg tablet 800 mg PO BID 30 Days Qty: 60 3RF fluticasone propion-salmeterol [Wixela Inhub] 100-50 mcg/dose blister with device 1 inh inhalation BID 30 Days Qty: 60 1RF Referrals: Polo Nascimento PA-C [Primary Care Provider] - Interventions: ED Discharge Assessment Last Done: 03/16/22 16:39 Discharge Date/Time: 03/16/22 16:39 Print Language: Palestinian
[2022-03-16 12:46] VITALS: BP 137/91; BP 140/80; PULSE 80; PULSE 84; RESP 18; TEMP 37; O2SAT 94; O2SAT 98; BMI 21.6
[2022-03-16] MEDS: Ketorolac Tromethamine 15 MG/ML VIAL IM (15:27)
== END 2022-03-16 16:39 | disposition home or self-care (01) ==
PROVIDERS: Emergency Provider Emergency Medicine; PCP Physician Assistant
DX: R29.6 Repeated falls (principal); M54.50 Low back pain, unspecified; Z91.81 History of falling; G80.1 Spastic diplegic cerebral palsy; I10 Essential (primary) hypertension; Z79.899 Other long term (current) drug therapy
CPT/HCPCS: 70450; 72125; 74176; 96372; 99283; 99284; J1885

== ENCOUNTER → 2022-05-14 09:15 | Outpatient (BNVA) | payer OTHER, SELFPAY | PROVIDERS: PCP Physician Assistant; Referring Provider Physician Assistant; Visit Provider Surgery | DX: C50.919 Malignant neoplasm of unspecified site of unspecified female breast (principal) | CPT/HCPCS: 99212 ==

== ENCOUNTER 2022-09-21 09:52 | Outpatient (REF) | payer OTHER, SELFPAY ==
[2022-09-21 10:32] LABS: Hemoglobin 13.4 g/dl (12.0-16.0); Mean Corpuscular HGB Conc 31.9 g/dl (31.0-35.0); Mean Corpuscular Hemoglobin 28.7 pg (27.0-33.0); Mean Corpuscular Volume 89.9 fL (80.0-98.0); Mean Platelet Volume 9.4 fL (9.4-12.3); Platelet Count 213 X10*3/uL (160-400); Red Blood Count 4.67 X10*6/uL (4.20-5.50); Red Cell Distribution Width 13.8 % (11.0-16.0); White Blood Count 4.8 X10*3/uL (4.8-10.8)
[2022-09-21 11:57] LABS: Alanine Aminotransferase 31 U/L (0-31); Alkaline Phosphatase 58 U/L (39-117); Anion Gap 11 (12-20); Aspartate Amino Transferase 23 U/L (5-31); Bilirubin Total 0.4 mg/dL (0.0-1.0); Blood Urea Nitrogen 17 mg/dL (9-16); Calcium 9.7 mg/dL (8.4-10.2); Carbon Dioxide 25 mmol/L (22-29); Chloride 110 mmol/L (96-108); Cholesterol 181 mg/dL; Estimated Glomerular Filt Rate > 60; Glucose Fasting 103 mg/dL (60-99); HDL Cholesterol 74 mg/dL; LDL Cholesterol Calculated 91 mg/dl; Potassium 4.2 mmol/L (3.3-5.1); Sodium 142 mmol/L (135-145); Total Protein 6.7 g/dL (6.5-8.0); Triglycerides 84 mg/dL
[2022-09-21 11:58] LABS: Appearance Urine Clear; Color Urine Yellow; Glucose Urine UA Negative (Negative); Leukocyte Esterase Urine Trace (Negative); Nitrite Urine Negative (Negative); Specific Gravity - Urine 1.025 (1.005-1.025); UMIC TRIGGER UACC YES; Urine Blood Negative (Negative); Urine Ketones Negative (Negative); Urine Protein Trace mg/dL (Neg-Trace)
[2022-09-21 12:11] LABS: WBC Urine 0-5 /HPF (0-5)
[2022-09-21 12:12] LABS: Bacteria Urine 1+ (None Seen); Hyaline Casts Urine 0-2 /LPF (0-2); Squamous Epithelial Cell Urine 0-2 /HPF (0-2)
[2022-09-21 12:18] LABS: TSH reflex Free T4 1.83 uIU/mL (0.32-4.0)
[2022-09-21 13:02] LABS: Microalbum/Creatinine Ratio Ur 7.5 ug/mg cr
== END 2022-09-21 09:53 | disposition home or self-care (01) ==
LOC: HO.LAB 09:52
PROVIDERS: PCP Physician Assistant; Visit Provider Physician Assistant
DX: I10 Essential (primary) hypertension (principal)
CPT/HCPCS: 36415; 80053; 80061; 81001; 82043; 84443; 85027

== ENCOUNTER 2022-10-14 09:47 | Outpatient (AMB) | payer OTHER, SELFPAY ==
[2022-10-14 09:48] VITALS: BP 124/80; PULSE 87; RESP 16; O2SAT 95; BMI 25.2
--- NOTE | 2022-10-14 09:48 | MHC.PC.OV ---
Vital Signs 10/14/22 09:48 Height 5 ft 3 in Weight 142 lb 8 oz BMI 25.2 BP 124/80 Blood Pressure Location Lt brachial Position Sitting Respiration 16 Pulse 87 Pulse Source Pulse Oximeter Pulse Oximetry (%) 95 Oxygen Delivery Method Room Air Intake Visit Reasons: f/u HTN Intake Note: Pt is here for F/U on HTN. 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 Accompanied by: Self / Same As Patient Allergies No Known Allergies [No Known Allergies*] Allergy (Verified 10/14/22 10:07) Medication List - Last Reconciled 10/14/22 by Polo Nascimento PA-C acetaminophen ER 650 mg PO Q12H 30 days albuterol sulfate 2.5 mg inhalation Q4H PRN amlodipine (Norvasc) 5 mg PO DAILY anastrozole (Arimidex) 1 tab PO DAILY cyanocobalamin (vitamin B-12) (Vitamin B-12) 1,000 mcg PO DAILY docusate sodium (Colace) 100 mg PO BID 30 days ferrous sulfate (iron) 325 mg PO BID fluticasone propion-salmeterol 100-50 mcg/dose (Wixela Inhub) 1 inh inhalation BID 30 days gabapentin 900 mg (3 x 300 mg) PO TID ibuprofen 800 mg PO BID 30 days [kotex pads As directed] lisinopril 20 mg PO DAILY 90 days montelukast 10 mg PO QPM omeprazole 20 mg PO DAILY 30 days ondansetron 1 tab PO Q6H PRN Paxil CR ER (paroxetine HCl) 12.5 mg PO DAILY NS Paxil CR ER (paroxetine HCl) 50 mg (2 x 25 mg) PO DAILY NS simethicone 180 mg PO BID 30 days [wipes As directed] Tobacco use date assessed: 03/23/22 Fall risk assessment: No Falls in past year Last assessed Fall Risk: 10/14/22 Dental Screening Dental Screen Date: 10/14/22 Did you have a dental visit in the last 12 months?: Yes Did you have a dental problem in the last 6 months where you did not have access to dental care?: No Was dental information given to patient?: Patient has dentist HPI f/u HTN HPI Details atient is a 66-year-old female here today for a follow-up visit.? patient has a past medical history significant for cerebral palsy, invasive ductal carcinoma of the breast, hypertension. Polyarthralgia: Ever since we discontinued her ibuprofen 800 she has been having more pain and more falls. Willing to give her back ibuprofen 800 to take once a day in hopes this for reduce her falls. Patient does understand the risk of GI bleed and is willing to take the risk to help reduce her pain thus resulting in falls. CHRONIC MEDICAL CONDITIONS--> Breast cancer:? 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 She is status post lobectomy for breast cancer, she is due for repeat imaging in February 2021.? She continues on anti hormonal therapy (arimidex) without side effect. Cerebral palsy:? 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 Did have previous episodes of recurrent falls.? Now has a custom helmet. Now currently not driving .. Hypertension:? Blood pressure acceptable today in office.? Will continue current doses of blood pressure medication.? Denies any headache, chest discomfort, shortness of breath.? .. Anemia:? Patient does have a history of breast cancer also did have a recent history of rectal prolapse requiring surgery and was found to be anemic.? Will reach check her hemoglobin and ensure stabilization. ? [facility] Medical History (Updated 07/23/22 @ 11:51 by Polo Nascimento PA-C) Frequent falls Hx of flexible sigmoidoscopy Elevated platelet count Colonic stricture Breast CA Prolapse of intestine Rectal prolapse Invasive lobular carcinoma of breast in female Asthma MDD (major depressive disorder) Surgical History History of gastric surgery History of lumpectomy of right breast History of open sigmoidectomy Family History Father Family history unknown Mother Breast cancer Brother No problems noted. Sister History of leukemia Social History Household Members: None Housing: Apartment Are you a primary child care coordinator to a significant other at home: No Do you presently have visiting nurse or other home services: Yes Alcohol intake: former Patient Tobacco Use Status: Never used Tobacco e-Cigarette/Vaping Use: Never Used Second Hand Smoke Exposure: No Advance Directives Date on File: 09/01/21 service: No Current occupational status: retired Cognitive needs: Yes (walker) Hearing needs: No Vision needs: Yes (reading glasses) Questionnaire Thrive Questionnaire Date Thrive assessed: 07/01/22 BRITNEY-7 AMB Questionnaire BRITNEY-7 Date BRITNEY - 7 assessed: 07/01/22 Source: Developed by Drs. Tin Arriaga, Sia Raymundo, Ean Miles and colleagues, with an educational bernarda from [employer]. Review of Systems Const Denies headache(s) Eyes Denies loss of vision ENT Denies vertigo, Denies dizziness, Denies headache(s) and Denies sore throat Card Denies chest pain, Denies leg edema and Denies lightheadedness Resp Denies cough, Denies hemoptysis and Denies wheezing GI Denies abdominal pain, Denies melena, Denies constipation, Denies diarrhea and Denies vomiting Denies urinary frequency, Denies dysuria and Denies urinary urgency Musc Denies arthralgias, Denies joint swelling, Denies numbness and Denies tingling Neuro Denies Abnormal speech present, Denies behavioral changes, Denies vertigo, Denies dizziness, Denies headache(s), Denies loss of vision, Denies memory loss, Denies numbness and Denies tingling Psych Denies anxiety, Denies behavioral changes, Denies depression, Denies memory loss and Denies panic attacks Mir/Lymph Denies easy bleeding and Denies easy bruising Aller/Immun Denies wheezing Physical exam (Primary Care) Vital Signs: Last Vital Signs Pulse 87 10/14/22 09:48 Resp 16 10/14/22 09:48 BP 124/80 10/14/22 09:48 Pulse Ox 95 10/14/22 09:48 Oxygen Delivery Method Room Air 10/14/22 09:48 BMI result Body Mass Index 25.2 Tobacco/Smoking Status: Tobacco use Status Tobacco use date assessed 03/23/22 10/14/22 09:50 Patient Tobacco Use Status Never used Tobacco 10/14/22 09:50 e-Cigarette/Vaping Use Never Used 10/14/22 09:50 Thrive Assessment: Date of Thrive Assessment Date Thrive assessed 07/01/22 10/14/22 09:50 Const General: healthy appearing, no acute distress, alert and awake Nutritional Appearance: well nourished Orientation/consciousness: oriented to person, oriented to place and oriented to time HENMT Ears: TM's normal bilaterally General nose exam: Normal nasal mucous membranes and turbinates present Eyes Conjunctivae: conjunctivae normal Sclerae: sclerae normal Pupils: Equal, round and reactive pupils present Neck Neck: Yes no lymphadenopathy and Yes no JVD Thyroid: Thyroid normal Carotids: no bruits Resp Effort & Inspection: normal respiratory effort and not tachypneic Auscultation: no crackles, no rales, no rhonchi and no wheezes Cardio Rate: regular rate Rhythm: regular rhythm Heart sounds: no murmurs and normal S1 and S2 GI Palpation (GI): Soft to palpation, nontender, no hepatomegaly and no splenomegaly Auscultation: normal bowel sounds Skin General skin exam: no rashes or lesions noted and dry skin Neuro General: oriented to person, oriented to place and oriented to time Cranial nerves: Yes Equal, round and reactive pupils present Speech: No Abnormal speech present Gait exam (Neuro): Normal gait present Motor exam (neuro): no tremor noted Extrem Right upper extremity: full ROM Left upper extremity: full ROM Right lower extremity: full ROM; no edema Left lower extremity: full ROM; no edema Psych Mental Status: mental status grossly normal Speech and movement: Normal speech and movement present Affect: normal affect Attitude: cooperative Thought process: Normal thought process present Assessment and Plan Assessment & Plan (1) HTN (hypertension): Code(s): I10 - Essential (primary) hypertension Qualifiers: Hypertension type: primary hypertension Qualified Code(s): I10 - Essential (primary) hypertension Plan: Patient's blood pressure acceptable today in office. Will continue her current dose of amlodipine with goal blood pressure to be below 140/90 (2) Spastic cerebral palsy, congenital: Code(s): G80.1 - Spastic diplegic cerebral palsy Plan: Patient has stopped driving which has caused some depression. She does falls from time to time related to her instability. She does wear a helmet to protect her head. She does use ibuprofen which does help reduce her lower extremity pains which has thus reduce her falls. (3) Anemia: Code(s): D64.9 - Anemia, unspecified Qualifiers: Anemia type: unspecified type Qualified Code(s): D64.9 - Anemia, unspecified Plan: Will continue to follow CBC. We did discuss her lower intestinal disease and patient does understand she has an anastomosis. We discussed the NSAID and possible risk of GI bleed and patient does understand and accepts the possible risk as she had does help her reduce her pain and reduce her falls as well. (4) MDD (major depressive disorder): Code(s): F32.9 - Major depressive disorder, single episode, unspecified Qualifiers: Active/Remission status: currently active Major depression episode severity: moderate Major depression recurrence: recurrent Qualified Code(s): F33.1 - Major depressive disorder, recurrent, moderate Plan: Patient continues on Paxil which has been effective for her depression. She is somewhat depressed at times due to not being able drive anymore due to her cerebral palsy and frequent falls. Orders: Orders Microalbumin, Random (w Creat) 6 Months I10 - Essential (primary) hypertension Comprehensive [place]. Panel Fast 6 Months I10 - Essential (primary) hypertension Complete Blood Count no Diff 6 Months I10 - Essential (primary) hypertension IRON PROFILE 6 Months D50.9 - Iron deficiency anemia, unspecified, D64.9 - Anemia, unspecified Coding Level of Care Code Est Pt Level 4 (61744) Diagnoses Primary hypertension I10 Hypertension type: primary hypertension Spastic cerebral palsy, 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 Anemia, unspecified type D64.9 Anemia type: unspecified type Moderate episode of recurrent major depressive disorder F33.1 Active/Remission status: currently active Major depression episode severity: moderate Major depression recurrence: recurrent
== END 2022-10-14 10:24 | disposition home or self-care (01) ==
PROVIDERS: Visit Provider Physician Assistant
DX: I10 Essential (primary) hypertension (principal); G80.1 Spastic diplegic cerebral palsy; D64.9 Anemia, unspecified; F33.1 Major depressive disorder, recurrent, moderate
CPT/HCPCS: 99214

== ENCOUNTER 2022-11-13 09:38 | Outpatient (AMB) | payer OTHER, SELFPAY ==
--- NOTE | 2022-11-13 09:59 | MHC.OFFVIS ---
Intake Vital Signs 11/13/22 10:17 Height 5 ft 3 in Weight 144 lb BMI 25.5 BP 118/81 Blood Pressure Location Lt brachial Position Sitting Pulse 73 Intake Visit Reasons: 6 month follow up breast exam Intake Note: Patient is seen in office for 6 month follow up visit, breast exam. 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 Required: No Accompanied by: Self / Same As Patient Allergies No Known Allergies [No Known Allergies*] Allergy (Verified 11/13/22 10:18) Medication List - Last Reconciled 11/13/22 by Manuel Jose MD acetaminophen ER 650 mg PO Q12H 30 days albuterol sulfate 2.5 mg inhalation Q4H PRN amlodipine (Norvasc) 5 mg PO DAILY anastrozole (Arimidex) 1 tab PO DAILY cyanocobalamin (vitamin B-12) (Vitamin B-12) 1,000 mcg PO DAILY docusate sodium (Colace) 100 mg PO BID 30 days ferrous sulfate (iron) 325 mg PO BID fluticasone propion-salmeterol 100-50 mcg/dose (Wixela Inhub) 1 inh inhalation BID 30 days gabapentin 900 mg (3 x 300 mg) PO TID ibuprofen 800 mg PO BID 30 days [kotex pads As directed] lisinopril 20 mg PO DAILY 90 days montelukast 10 mg PO QPM omeprazole 20 mg PO DAILY 30 days ondansetron 1 tab PO Q6H PRN Paxil CR ER (paroxetine HCl) 12.5 mg PO DAILY NS Paxil CR ER (paroxetine HCl) 50 mg (2 x 25 mg) PO DAILY NS simethicone 180 mg PO BID 30 days [wipes As directed] HPI HPI Comments History of Present Illness Details 67-year-old female patient former patient of Dr. Wu, presenting for breast cancer follow-up examination.? She was noted to have an area of architectural distortion in the 9 o'clock position of the right breast, evaluated by mammogram on February 2019 confirmed by ultrasound as an ill-defined hypoechoic area in the 10 o'clock position, 7 cm from the nipple.? An ultrasound-guided core biopsy revealed invasive ductal carcinoma grade 2 ER/FL positive, HER2 Jon negative.? She underwent lumpectomy with sentinel node biopsy on 03/16/2019.? Pathology revealed a 0.9 cm invasive lobular carcinoma, grade 2 with negative margins.? Two sentinel nodes were negative for carcinoma.? She underwent radiation therapy which was completed in May 2019.? She was started on letrozole 2.5 mg daily.? This was started after 3 weeks after developing depression and diarrhea.? She subsequent developed a rectal prolapse recurrence and required a sigmoid resection with rectopexy.? She was later started on Arimidex [address] daily [address] Dr[address] Pinedo.? Her most recent mammogram of 03/04/2022 revealed no significant changes from the prior study (BI-RADS 2).? Diagnostic mammography is scheduled in March 05, 2023.? She denies any new breast problems or breast symptoms.? She denies any current abdominal pain or constipation and reports her bowels are much improved. She needs to wear a helmet now because she blacks out in falls. [facility] Medical History (Updated 10/20/22 @ 11:31 by [place]) Frequent falls Hx of flexible sigmoidoscopy Elevated platelet count Colonic stricture Breast CA Prolapse of intestine Rectal prolapse Invasive lobular carcinoma of breast in female Asthma MDD (major depressive disorder) Surgical History History of gastric surgery History of lumpectomy of right breast History of open sigmoidectomy Family History Father Family history unknown Mother Breast cancer Brother No problems noted. Sister History of leukemia Social History Household Members: None Housing: Apartment Are you a primary lpn care manager to a significant other at home: No Do you presently have visiting nurse or other home services: Yes Alcohol intake: former Patient Tobacco Use Status: Never used Tobacco e-Cigarette/Vaping Use: Never Used Second Hand Smoke Exposure: No Advance Directives Date on File: 09/01/21 service: No Current occupational status: retired Cognitive needs: Yes (walker) Hearing needs: No Vision needs: Yes (reading glasses) Review of Systems Const All systems reviewed & are unremarkable except as noted in HPI and below Denies chills, Denies fever(s) and Denies weight gain ENT Reports no additional complaints Card Reports no additional complaints Resp Reports no additional complaints GI Reports as per HPI Denies nipple discharge Skin/Breast Denies breast swelling, Denies breast skin changes, Denies breast pain, Denies breast mass, Denies change in breast shape, Denies change in pigmentation, Denies new lesions and Denies nipple discharge Mir/Lymph Denies lymphadenopathy Physical Exam Vital Signs: Last Vital Signs Pulse 73 11/13/22 10:17 BP 118/81 11/13/22 10:17 BMI result Body Mass Index 25.5 Const General: cooperative, comfortable and no acute distress HEENT Head: Yes normocephalic and Yes atraumatic Ears: hearing grossly normal bilaterally Chest Other: Left breast: No skin change, no nipple retraction, no nipple discharge, no palpable mass, no enlarged lymph nodes. Right breast: No skin change, no nipple retraction, no nipple discharge, no palpable mass, no enlarged lymph nodes Resp Effort & Inspection: normal respiratory effort GI Inspection: Yes normal to inspection Palpation (GI): Soft to palpation, nontender, no guarding and not rigid Rectal Exam - Female: No deferred Skin General skin exam: no rashes or lesions noted Extrem General: Yes no clubbing, cyanosis or edema Assessment & Plan Assessment & Plan (1) Invasive lobular carcinoma of breast in female: Comment: right Code(s): C50.919 - Malignant neoplasm of unspecified site of unspecified female breast Plan 67-year-old female patient with previous history of right breast lumpectomy and sentinel node biopsy for infiltrating ductal carcinoma on 03/16/2019. She feels well and denies any new breast problems. Breast examination today reveals no suspicious findings in either breast. She is due for follow-up mammogram in February 2023. Her last mammogram of 06/02/2022 revealed benign findings (BI-RADS 2). I have asked her to return approximately 6 months for follow-up breast examination, sooner p.r.n.. Coding Level of Care Code Est Pt Level 3 (44016) Diagnoses Invasive lobular carcinoma of breast in female C50.919
[2022-11-13 10:17] VITALS: BP 118/81; PULSE 73; BMI 25.5
== END 2022-11-13 10:40 | disposition home or self-care (01) ==
PROVIDERS: PCP Physician Assistant; Visit Provider Surgery
DX: C50.911 Malignant neoplasm of unspecified site of right female breast (principal)
CPT/HCPCS: 99213

== ENCOUNTER → 2022-11-13 09:38 | Outpatient (BNVA) | payer OTHER, SELFPAY | PROVIDERS: PCP Physician Assistant; Visit Provider Surgery | DX: C50.911 Malignant neoplasm of unspecified site of right female breast (principal) | CPT/HCPCS: 99212 ==

== ENCOUNTER 2023-01-08 08:33 | Outpatient (REF) | payer OTHER, SELFPAY ==
--- NOTE | ~2023-01-08 | MM_ITS ---
EXAMINATION: BONE DENSITOMETRY CLINICAL INDICATION: Osteopenia. COMPARISON: Previous BD dated 07/13/2019 and baseline BD dated 04/23/2016. TECHNIQUE: Using a [employer] DXA System (software version: 13.1) manufactured by [employer], dual-energy x-ray absorptiometry was performed of the lumbar spine, left hip, and left forearm radius 33%. The images are of good technical quality. Summary results are attached. FINDINGS: LEFT FEMUR, NECK: Current: BMD 0.725 g/cm2, Z-score -0.6, T-score -2.3, osteopenia. Prior: BMD 0.810 g/cm2. Baseline: BMD 0.822 g/cm2. LEFT FEMUR, TOTAL: Current: BMD 0.799 g/cm2, Z-score -0.3, T-score -1.7, osteopenia, 8.6% decrease from previous, 13.5% decrease from baseline (<5% change is not significant). Prior: BMD 0.874 g/cm2. Baseline: BMD 0.924 g/cm2. AP SPINE L1-L2 (excluding L3 and L4): The data of L1-L4 has been changed to exclude the L3 and L4 vertebral bodies, because metallic hardware at these levels may cause overestimation of lumbar spine density. Current: BMD 0.787 g/cm2, Z-score -1.5, T-score -3.1, osteoporosis, 20.3% decrease from previous, 21.1% decrease from baseline (<5% change is not significant). Prior: BMD 0.987 g/cm2. Baseline: BMD 0.997 g/cm2. LEFT FOREARM RADIUS 33%: BMD 0.520 g/cm2, Z-score -2.4, T-score -4.1, osteoporosis. IDENTIFIED RISK FACTORS: Menopause, height loss, recurrent falls. HISTORY OF FRACTURE: None listed. MEDICATIONS: Vitamin D, ERT/SERMS. MM/XR DEXA axial skeleton IMPRESSION: 1. DIAGNOSIS: Osteoporosis based on the lowest T-score value of -4.1 in the forearm radius 33% applying World Health Organization criteria. 2. 10-YEAR FRACTURE RISK PREDICTION, FRAX: According to the guidelines, FRAX calculation should only be performed on patients in the osteopenia bone density category. Therefore, FRAX was not performed on this patient. 3. Treatment Recommendations: NOF guidelines recommend consideration for treatment in postmenopausal women and men age 50 and older presenting with the following: -A hip or vertebral (clinical or morphometric) fracture. -T-score less than or equal to -2.5 at the femoral neck or spine after appropriate evaluation to exclude secondary causes. -Low bone mass at the hip or spine and a 10-year fracture probability by FRAX of greater than or equal to 3% for hip fracture or greater than or equal to 20% for major osteoporotic fracture based on the [place] adapted WHO algorithm. 4. Other Recommendations: All treatment decisions require clinical judgment and consideration of individual patient factors, including patient preferences, comorbidities, previous drug use, risk factors not captured in the FRAX model (e.g. frailty, falls, vitamin D deficiency, increased bone turnover, interval significant decline in bone density) and possible under or overestimation of fracture risk by FRAX. Additional medical evaluation for secondary cause of low bone mineral density may be appropriate. FUTURE SCAN RECOMMENDATION: People with diagnosed cases of osteoporosis or at high risk for fracture should have regular bone mineral density tests. For patients eligible for Medicare, routine testing is allowed once every 2 years. The testing frequency can be increased to one year for patients who have rapidly progressing disease, those who are receiving or discontinuing medical therapy to restore bone mass, or have additional risk factors.
== END 2023-01-08 08:34 | disposition home or self-care (01) ==
LOC: HO.MAMMO 08:33
PROVIDERS: PCP Physician Assistant; Visit Provider Internal Medicine
DX: Z13.820 Encounter for screening for osteoporosis (principal); Z78.0 Asymptomatic menopausal state; C50.919 Malignant neoplasm of unspecified site of unspecified female breast
CPT/HCPCS: 77080

== ENCOUNTER 2023-03-05 10:57 | Outpatient (REF) | payer OTHER, SELFPAY ==
--- NOTE | ~2023-03-05 | MM_ITS ---
EXAMINATION: MM SCREENING DIGITAL BREAST TOMOSYNTHESIS, BILATERAL CLINICAL INFORMATION: Screening. Asymptomatic. The patient is status post conservatively treated right breast cancer from 2020. COMPARISON: Mammography: This study is compared with prior exams dating back to 2019. TECHNIQUE: Digital breast tomosynthesis is performed in both the craniocaudal and mediolateral oblique views along with computer-aided detection (CAD). Synthesized 2D images are generated from the tomosynthesis. FINDINGS: The breasts are heterogeneously dense, which may obscure small masses (ACR BI-RADS breast composition Category c). There are no significant masses, abnormal calcifications, or other abnormalities. There are postsurgical changes in the upper outer quadrant of the right breast from prior breast cancer treatment. MM/MM tomosynthesis screening BI IMPRESSION: No mammographic evidence of malignancy. ASSESSMENT: BI-RADS BI-RADS 2 - Benign Findings RECOMMENDATION: Routine annual mammography screening. 1 year F/U This examination should not preclude the clinical evaluation of a suspicious palpable abnormality. This patient's information was entered into a reminder system with a target due date for their next mammogram.
== END 2023-03-05 10:58 | disposition home or self-care (01) ==
LOC: HO.MAMMO 10:57
PROVIDERS: PCP Physician Assistant; Visit Provider Physician Assistant
DX: Z12.31 Encounter for screening mammogram for malignant neoplasm of breast (principal)
CPT/HCPCS: 77063; 77067

== ENCOUNTER → 2023-03-05 11:30 | Outpatient (BNV) | payer OTHER, SELFPAY | PROVIDERS: PCP Physician Assistant; Visit Provider Radiology Diagnostic Radiology | DX: Z12.31 Encounter for screening mammogram for malignant neoplasm of breast (principal) | CPT/HCPCS: 77063; 77067 ==

== ENCOUNTER 2023-03-16 09:47 | Outpatient (REF) | payer OTHER, SELFPAY ==
[2023-03-16 10:29] LABS: Hematocrit 39.5 % (37.0-47.0); Hemoglobin 13.1 g/dl (12.0-16.0); Mean Corpuscular HGB Conc 33.2 g/dl (31.0-35.0); Mean Corpuscular Hemoglobin 29.6 pg (27.0-33.0); Mean Corpuscular Volume 89.4 fL (80.0-98.0); Mean Platelet Volume 9.7 fL (9.4-12.3); Platelet Count 189 X10*3/uL (160-400); Red Blood Count 4.42 X10*6/uL (4.20-5.50); Red Cell Distribution Width 13.4 % (11.0-16.0); White Blood Count 3.9 X10*3/uL (4.8-10.8)
[2023-03-16 11:28] LABS: Alanine Aminotransferase 18 U/L (0-31); Alkaline Phosphatase 46 U/L (39-117); Anion Gap 11 (12-20); Aspartate Amino Transferase 17 U/L (5-31); Bilirubin Total 0.4 mg/dL (0.0-1.0); Blood Urea Nitrogen 17 mg/dL (9-16); Calcium 8.7 mg/dL (8.4-10.2); Carbon Dioxide 23 mmol/L (22-29); Chloride 112 mmol/L (96-108); Cholesterol 150 mg/dL (<200); Estimated Glomerular Filt Rate > 60; Glucose Fasting 98 mg/dL (60-99); HDL Cholesterol 78 mg/dL (>40); Iron 101 mcg/dL (30-160); LDL Cholesterol Calculated 60 mg/dL (<100); Percent Iron Saturation 35 % (15-50); Potassium 3.9 mmol/L (3.3-5.1); Sodium 142 mmol/L (135-145); Total Iron Binding Capacity 289 mcg/dL (228-428); Total Protein 6.5 g/dL (6.5-8.0); Triglycerides 63 mg/dL (<150); Unsaturated Iron Binding 188 ug/dL
[2023-03-16 11:44] LABS: Ferritin 125 ng/mL (10-250)
[2023-03-16 11:47] LABS: Folate 13.2 ng/mL (> or = 4.0); Vitamin B12 1296 pg/mL (200-900)
[2023-03-16 14:39] LABS: Appearance Urine Cloudy; Color Urine Yellow; Glucose Urine UA Negative (Negative); Leukocyte Esterase Urine Negative (Negative); Nitrite Urine Negative (Negative); Specific Gravity - Urine 1.025 (1.005-1.025); Urine Blood Negative (Negative); Urine Ketones Negative (Negative); Urine Protein Trace mg/dL (Neg-Trace)
[2023-03-16 16:04] LABS: Creatinine Urine 221.52 mg/dL; Microalbum/Creatinine Ratio Ur 8.1 ug/mg cr (<30)
== END 2023-03-16 09:48 | disposition home or self-care (01) ==
LOC: HO.LAB 09:47
PROVIDERS: Visit Provider Physician Assistant
DX: I10 Essential (primary) hypertension (principal); D50.9 Iron deficiency anemia, unspecified; E53.8 Deficiency of other specified B group vitamins; R30.0 Dysuria
CPT/HCPCS: 36415; 80053; 80061; 81003; 82043; 82570; 82607; 82728; 82746; 83540; 85027

== ENCOUNTER 2023-03-17 09:33 | Outpatient (AMB) | payer OTHER, SELFPAY ==
--- NOTE | 2023-03-17 10:04 | MHC.PC.OV ---
Vital Signs 03/17/23 10:05 Height 5 ft 3 in Weight 143 lb 6 oz BMI 25.4 BP 128/88 Blood Pressure Location Lt brachial Position Sitting Pulse 82 Pulse Source Pulse Oximeter Pulse Oximetry (%) 97 Oxygen Delivery Method Room Air Intake Visit Reasons: F/U Intake Note: Patient is here to follow up on HTN. 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 Accompanied by: Self / Same As Patient Allergies No Known Allergies [No Known Allergies*] Allergy (Verified 03/17/23 10:12) Medication List - Last Reconciled 03/17/23 by Polo Nascimento PA-C acetaminophen ER 650 mg PO Q12H 30 days albuterol sulfate 2.5 mg inhalation Q4H PRN amlodipine (Norvasc) 5 mg PO DAILY anastrozole (Arimidex) 1 tab PO DAILY cyanocobalamin (vitamin B-12) (Vitamin B-12) 1,000 mcg PO DAILY docusate sodium (Colace) 100 mg PO BID 30 days ferrous sulfate (iron) 325 mg PO BID fluticasone propion-salmeterol 100-50 mcg/dose (Wixela Inhub) 1 inh inhalation BID 30 days gabapentin 900 mg (3 x 300 mg) PO TID ibuprofen 800 mg PO Q12H PRN 30 days [kotex pads As directed] lisinopril 20 mg PO DAILY 90 days omeprazole 20 mg PO DAILY 30 days ondansetron 1 tab PO Q6H PRN Paxil CR ER (paroxetine HCl) 12.5 mg PO DAILY NS Paxil CR ER (paroxetine HCl) 50 mg (2 x 25 mg) PO DAILY NS simethicone 180 mg PO BID 30 days [wipes As directed] Tobacco use date assessed: 03/17/23 Fall risk assessment: No Falls in past year Last assessed Fall Risk: 03/17/23 Dental Screening Dental Screen Date: 03/17/23 Did you have a dental visit in the last 12 months?: Yes Did you have a dental problem in the last 6 months where you did not have access to dental care?: No Was dental information given to patient?: Patient has dentist HPI F/U HPI Details PAtient is a 67-year-old female here today for a follow-up visit.? patient has a past medical history significant for cerebral palsy, invasive ductal carcinoma of the breast, hypertension. Concern--> has decreased hearing due to bilateral cerumen impaction. Today in office performed ear lavage with ear cerumen disimpacted. Polyarthralgia: Patient's bilateral knee pain has been much improved since she has lost weight. She has been using ibuprofen judiciously as she does note she has history of GI bleed. Patient does understand the risk of GI bleed and is willing to take the risk to help reduce her pain thus resulting in falls. CHRONIC MEDICAL CONDITIONS--> Breast cancer:? 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 She is status post lobectomy for breast cancer, she is due for repeat imaging in February 2021.? She continues on anti hormonal therapy (arimidex) without side effect. Cerebral palsy:? Continues to be very active, wears helmet to protect her head as she has frequent falls..? Did have previous episodes of recurrent falls.? Now currently not driving .. Hypertension:? Blood pressure acceptable today in office.? Will continue current doses of blood pressure medication.? Denies any headache, chest discomfort, shortness of breath.? . Depression: Has been very well controlled with current dose of Paxil. .. Asthma: Has been well controlled with p.r.n. use of her albuterol inhaler and daily use of her Wixela maintenance inhaler. She is interested in restarting Singulair at night to help her breathe while lying down .. Anemia:? Has resolved- Patient does have a history of breast cancer also did have a recent history of rectal prolapse requiring surgery and was found to be anemic.? ? Laboratory Tests 09/21/22 09/21/22 03/16/23 10:07 10:10 10:09 RBC 4.67 4.42 Hgb 13.1 Creatinine 0.79 Fasting Glucose 103 H Iron 101 Cholesterol 181 150 Vitamin B12 1296 H TSH 1.83 Ur Leukocyte Tamiko ase Trace H Urine RBC 3-5 H Urine Bacteria 1+ PFSH Medical History (Updated 03/17/23 @ 10:17 by Polo Nascimento PA-C) Frequent falls Hx of flexible sigmoidoscopy Elevated platelet count Colonic stricture Breast CA Prolapse of intestine Rectal prolapse Invasive lobular carcinoma of breast in female Asthma MDD (major depressive disorder) Surgical History History of gastric surgery History of lumpectomy of right breast History of open sigmoidectomy Family History Father Family history unknown Mother Breast cancer Brother No problems noted. Sister History of leukemia Social History Household Members: None Housing: Apartment Are you a primary intensive care nurse to a significant other at home: No Do you presently have visiting nurse or other home services: Yes Alcohol intake: former Patient Tobacco Use Status: Never used Tobacco e-Cigarette/Vaping Use: Never Used Second Hand Smoke Exposure: No Advance Directives Date on File: 09/01/21 service: No Current occupational status: retired Cognitive needs: Yes (walker) Hearing needs: No Vision needs: Yes (reading glasses) Questionnaire PHQ-9 Over the last 2 weeks, how often have you been bothered by any of the following problems? 1. Little interest or pleasure in doing things: not at all 2. Feeling down, depressed, or hopeless: not at all 3. Trouble falling or staying asleep, or sleeping too much: not at all 4. Feeling tired or having little energy: not at all 5. Poor appetite or overeating: not at all 6. Feeling bad about yourself - or that you are a failure or have let yourself or your family down: not at all 7. Trouble concentrating on things, such as reading the newspaper or watching television: not at all 8. Moving or speaking so slowly that other people could have noticed. Or the opposite - being so fidgety or restless that you have been moving around a lot more than usual: not at all 9. Thoughts that you would be better off or of hurting yourself in some way: not at all Total score: 0 Depression Screening Interpretation: Negative Depression Screening Done: Yes 62047 - PHQ-9 Billing: Yes Source: Developed by Drs. Tin Arriaga, Sia Raymundo, Ean Miles and colleagues, with an educational bernarda from [employer]. Thrive Questionnaire Date Thrive assessed: 03/17/23 I am a: Patient What is your living situation today?: I have a steady place to live Within the past 12 months, did the food you bought not last and you didn't have the money to get more?: Never true Within the past 12 months, did you worry whether your food would run out before you got money to buy more?: Never true Do you have trouble paying for medicines?: No Do you have trouble getting transportation to medical appointments?: No Do you have trouble paying your heating and electricity bill?: No Do you have trouble taking care of your child, family member or friend?: No Do you have trouble with day-to-day activities such as bathing, preparing meals, shopping, managing finances, etc.?: No Are you currently unemployed and looking for a job?: No Are you interested in more education?: No Please select the resources that you would like help with: None Currently or been in a relationship where the following occur: no concerns reported THRIVE Score: 0 AUDIT C Alcohol Use Questionnaire (AUDIT-C) 1. How often do you have a drink containing alcohol?: Never Total Score: 0 BRITNEY-7 AMB Questionnaire BRITNEY-7 Date BRITNEY - 7 assessed: 03/17/23 Feeling nervous, anxious, or on edge: 0 = Not at all Not being able to stop or control worryin = Not at all Worrying too much about different things: 0 = Not at all Trouble relaxin = Not at all Being so restless that it is hard to sit still: 0 = Not at all Becoming easily annoyed or irritable: 0 = Not at all Feeling afraid as if something awful might happen: 0 = Not at all Total BRITNEY-7 score (0-4 normal; 5-9 mild; 10-14 moderate; 15-21 severe): 0 Source: Developed by Drs. Tin Arriaga, Sia Raymundo, Ean Miles and colleagues, with an educational bernarda from [employer]. BRITNEY-7 Assessment Billing BRITNEY-7 Assessment Tool: BRITNEY-7 Assessment 68097 ACT Questionnaire In the past 4 weeks, how much of the time did your asthma keep you from getting as much done at work, school or at home?: None of the time During the past 4 weeks, how often have you had shortness of breath?: Not at all During the past 4 weeks, how often did your asthma symptoms wake you up at night or earlier than usual in the morning?: Not at all During the past 4 weeks, how often have you had to use your rescue inhaler or nebulizer medication?: Not at all How would you rate your asthma control during the past 4 weeks?: Completely controlled ACT Interpretation: Negative Score: 25 Review of Systems Const Denies headache(s) Eyes Denies loss of vision ENT Denies vertigo, Denies dizziness, Denies headache(s) and Denies sore throat Card Denies chest pain, Denies leg edema and Denies lightheadedness Resp Denies cough, Denies hemoptysis and Denies wheezing GI Denies abdominal pain, Denies melena, Denies constipation, Denies diarrhea and Denies vomiting Denies urinary frequency, Denies dysuria and Denies urinary urgency Musc Denies arthralgias, Denies joint swelling, Denies numbness and Denies tingling Neuro Denies Abnormal speech present, Denies behavioral changes, Denies vertigo, Denies dizziness, Denies headache(s), Denies loss of vision, Denies memory loss, Denies numbness and Denies tingling Psych Denies anxiety, Denies behavioral changes, Denies depression, Denies memory loss and Denies panic attacks Mir/Lymph Denies easy bleeding and Denies easy bruising Aller/Immun Denies wheezing Physical exam (Primary Care) Vital Signs: Last Vital Signs Pulse 82 03/17/23 10:05 BP 128/88 03/17/23 10:05 Pulse Ox 97 03/17/23 10:05 Oxygen Delivery Method Room Air 03/17/23 10:05 BMI result Body Mass Index 25.4 Tobacco/Smoking Status: Tobacco use Status Tobacco use date assessed 03/17/23 03/17/23 10:10 Patient Tobacco Use Status Never used Tobacco 03/17/23 10:10 e-Cigarette/Vaping Use Never Used 03/17/23 10:10 PHQ-9: PHQ-9 Score PHQ-9: Total score 0 03/17/23 10:15 Depression Screening Interpretation: Negative Thrive Assessment: Date of Thrive Assessment Date Thrive assessed 03/17/23 03/17/23 10:10 Currently or been in a relationship where the following occur: no concerns reported Const General: healthy appearing, no acute distress, alert and awake Nutritional Appearance: well nourished Orientation/consciousness: oriented to person, oriented to place and oriented to time HENMT Other: BILATERAL EXTERNAL EAR CANALS WITH NOTABLE CERUMEN IMPACTION- CLEAR AFTER LAVAGE Ears: TM's normal bilaterally General nose exam: Normal nasal mucous membranes and turbinates present Eyes Conjunctivae: conjunctivae normal Sclerae: sclerae normal Pupils: Equal, round and reactive pupils present Neck Neck: Yes no lymphadenopathy and Yes no JVD Thyroid: Thyroid normal Carotids: no bruits Resp Effort & Inspection: normal respiratory effort and not tachypneic Auscultation: no crackles, no rales, no rhonchi and no wheezes Cardio Rate: regular rate Rhythm: regular rhythm Heart sounds: no murmurs and normal S1 and S2 GI Palpation (GI): Soft to palpation, nontender, no hepatomegaly and no splenomegaly Auscultation: normal bowel sounds Skin General skin exam: no rashes or lesions noted and dry skin Neuro General: oriented to person, oriented to place and oriented to time Cranial nerves: Yes Equal, round and reactive pupils present Speech: No Abnormal speech present Gait exam (Neuro): Normal gait present Motor exam (neuro): no tremor noted Extrem Right upper extremity: full ROM Left upper extremity: full ROM Right lower extremity: full ROM; no edema Left lower extremity: full ROM; no edema Psych Mental Status: mental status grossly normal Speech and movement: Normal speech and movement present Affect: normal affect Attitude: cooperative Thought process: Normal thought process present Office Procedures Cerumen Removal From which ear canal was the cerumen removed: bilateral Removal: irrigation and otoscope w/curette Notes: patient tolerated procedure well and no complications [id number] Irrigation/Lavage Assessment and Plan Assessment & Plan (1) HTN (hypertension): Code(s): I10 - Essential (primary) hypertension Qualifiers: Hypertension type: primary hypertension Qualified Code(s): I10 - Essential (primary) hypertension Plan: Patient's blood pressure acceptable today in office. Will continue her current dose of amlodipine with goal blood pressure to be below 140/90 (2) Spastic cerebral palsy, congenital: Code(s): G80.1 - Spastic diplegic cerebral palsy Plan: Patient has stopped driving which has caused some depression. She does falls from time to time related to her instability. She does wear a helmet to protect her head. She does use ibuprofen which does help reduce her lower extremity pains which has thus reduce her falls. (3) Anemia: Code(s): D64.9 - Anemia, unspecified Qualifiers: Anemia type: unspecified type Qualified Code(s): D64.9 - Anemia, unspecified Plan: Will continue to follow CBC. Most recent CBC stable. We did discuss her lower intestinal disease and patient does understand she has an anastomosis. We discussed the NSAID and possible risk of GI bleed and patient does understand and accepts the possible risk as she had does help her reduce her pain and reduce her falls as well. (4) MDD (major depressive disorder): Code(s): F32.9 - Major depressive disorder, single episode, unspecified Qualifiers: Active/Remission status: currently active Major depression episode severity: moderate Major depression recurrence: recurrent Qualified Code(s): F33.1 - Major depressive disorder, recurrent, moderate Plan: Patient continues on Paxil which has been effective for her depression. She is somewhat depressed at times due to not being able drive anymore due to her cerebral palsy and frequent falls. (5) Asthma: Code(s): J45.909 - Unspecified asthma, uncomplicated Qualifiers: Asthma complication type: uncomplicated Asthma persistence: intermittent Asthma severity: mild Qualified Code(s): J45.20 - Mild intermittent asthma, uncomplicated Plan: Been well controlled with p.r.n. use of her albuterol inhaler and daily use of her Wixela. She would like to return back to using Singulair at night to help her breathing. Otherwise has no more follow-up with pulmonology Orders: Orders Complete Blood Count no Diff 6 Months D64.9 - Anemia, unspecified Lipid Panel 6 Months I10 - Essential (primary) hypertension Comprehensive [place]. Panel Fast 6 Months I10 - Essential (primary) hypertension Medications: New montelukast 10 mg PO BEDTIME 90 days 90 tabs 1RF J45.20 - Mild intermittent asthma, uncomplicated Coding Level of Care Code Est Pt Level 4 (80772) Diagnoses Primary hypertension I10 Hypertension type: primary hypertension Spastic cerebral palsy, 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 Anemia, unspecified type D64.9 Anemia type: unspecified type Moderate episode of recurrent major depressive disorder F33.1 Active/Remission status: currently active Major depression episode severity: moderate Major depression recurrence: recurrent Mild intermittent asthma without complication J45.20 Asthma complication type: uncomplicated Asthma persistence: intermittent Asthma severity: mild CPT Codes Office Procedure - CPT: 40310-Kky Irrigation/Lavage ([id number]) Additional Codes BRITNEY-7 Assessment Billing - BRITNEY-7 Assessment Tool: BRITNEY-7 Assessment 20851 ([id number])
[2023-03-17 10:05] VITALS: BP 128/88; PULSE 82; O2SAT 97; BMI 25.4
== END 2023-03-17 10:40 | disposition home or self-care (01) ==
PROVIDERS: PCP Physician Assistant; Visit Provider Physician Assistant
DX: I10 Essential (primary) hypertension (principal); G80.1 Spastic diplegic cerebral palsy; F33.1 Major depressive disorder, recurrent, moderate; H61.23 Impacted cerumen, bilateral; D64.9 Anemia, unspecified; J45.20 Mild intermittent asthma, uncomplicated
CPT/HCPCS: 69210; 99214

== ENCOUNTER 2023-05-14 09:22 | Outpatient (AMB) | payer OTHER, SELFPAY ==
--- NOTE | 2023-05-14 09:36 | MHC.OFFVIS ---
Intake Vital Signs 05/14/23 09:39 Height 5 ft 3 in Weight 145 lb 2 oz BMI 25.7 BP 147/98 H Blood Pressure Location Lt brachial Position Sitting Pulse 79 Intake Visit Reasons: 6 month follow up breast exam Intake Note: Patient is seen in office for 6 month follow up visit, breast exam. 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 Wu, presenting for breast cancer follow-up examination.? She was noted to have an area of architectural distortion in the 9 o'clock position of the right breast, evaluated by mammogram on February 2019 confirmed by ultrasound as an ill-defined hypoechoic area in the 10 o'clock position, 7 cm from the nipple.? An ultrasound-guided core biopsy revealed invasive ductal carcinoma grade 2 ER/CO positive, HER2 Jon negative.? She underwent lumpectomy with sentinel node biopsy on 03/16/2019.? Pathology revealed a 0.9 cm invasive lobular carcinoma, grade 2 with negative margins.? Two sentinel nodes were negative for carcinoma.? She underwent radiation therapy which was completed in May 2019.? She was started on letrozole 2.5 mg daily.? This was started after 3 weeks after developing depression and diarrhea.? She subsequent developed a rectal prolapse recurrence and required a sigmoid resection with rectopexy.? She was later started on Arimidex [address] daily [address] Dr[address] Pinedo.? Her most recent mammogram of 03/05/2023 revealed no mammographic evidence of malignancy (BI-RADS 2). She generally feels well and denies any new breast complaints. [facility] Medical History Frequent falls Hx of flexible sigmoidoscopy Elevated platelet count Colonic stricture Breast CA Prolapse of intestine Rectal prolapse Invasive lobular carcinoma of breast in female Asthma MDD (major depressive disorder) Surgical History History of gastric surgery History of lumpectomy of right breast History of open sigmoidectomy Family History Father Family history unknown Mother Breast cancer Brother No problems noted. Sister History of leukemia Social History Household Members: None Housing: Apartment Are you a primary home health care case manager to a significant other at home: No Do you presently have visiting nurse or other home services: Yes Alcohol intake: former Patient Tobacco Use Status: Never used Tobacco e-Cigarette/Vaping Use: Never Used Second Hand Smoke Exposure: No Advance Directives Date on File: 09/01/21 service: No Current occupational status: retired Cognitive needs: Yes (walker) Hearing needs: No Vision needs: Yes (reading glasses) Review of Systems Const All systems reviewed & are unremarkable except as noted in HPI and below Denies chills, Denies fever(s) and Denies weight gain ENT Reports no additional complaints Card Reports no additional complaints Resp Reports no additional complaints GI Reports as per HPI Denies nipple discharge Skin/Breast Denies breast swelling, Denies breast skin changes, Denies breast pain, Denies breast mass, Denies change in breast shape, Denies change in pigmentation, Denies new lesions and Denies nipple discharge Mir/Lymph Denies lymphadenopathy Physical Exam Vital Signs: Last Vital Signs Pulse 79 05/14/23 09:39 BP 147/98 H 05/14/23 09:39 BMI result Body Mass Index 25.7 Const General: cooperative, comfortable and no acute distress HEENT Head: Yes normocephalic and Yes atraumatic Ears: hearing grossly normal bilaterally Chest Other: Left breast: No skin change, no nipple retraction, no nipple discharge, no palpable mass, no enlarged lymph nodes. Right breast: No skin change, no nipple retraction, no nipple discharge, no palpable mass, no enlarged lymph nodes Resp Effort & Inspection: normal respiratory effort GI Inspection: Yes normal to inspection Palpation (GI): Soft to palpation, nontender, no guarding and not rigid Rectal Exam - Female: No deferred Skin General skin exam: no rashes or lesions noted Extrem General: Yes no clubbing, cyanosis or edema Assessment & Plan Assessment & Plan (1) Invasive lobular carcinoma of breast in female: Comment: right Code(s): C50.919 - Malignant neoplasm of unspecified site of unspecified female breast Plan 68-year-old female patient with previous history of right breast lumpectomy and sentinel node biopsy for infiltrating ductal carcinoma on 03/16/2019. She feels well and denies any new breast problems. Breast examination today reveals no suspicious findings in either breast. Her latest mammogram performed on 03/05/2023 revealed no mammographic evidence of malignancy in either breast (BI-RADS 2). I recommended follow-up examination in 6 months, sooner p.r.n.. Coding Level of Care Code Est Pt Level 3 (04395) Diagnoses Invasive lobular carcinoma of breast in female C50.919
[2023-05-14 09:39] VITALS: BP 147/98; PULSE 79; BMI 25.7
== END 2023-05-14 09:57 | disposition home or self-care (01) ==
PROVIDERS: PCP Physician Assistant; Visit Provider Surgery
DX: C50.911 Malignant neoplasm of unspecified site of right female breast (principal)
CPT/HCPCS: 99213

== ENCOUNTER → 2023-05-14 09:22 | Outpatient (BNVA) | payer OTHER, SELFPAY | PROVIDERS: PCP Physician Assistant; Visit Provider Surgery | DX: C50.511 Malignant neoplasm of lower-outer quadrant of right female breast (principal); Z17.0 Estrogen receptor positive status [ER+]; Z92.3 Personal history of irradiation; Z79.811 Long term (current) use of aromatase inhibitors | CPT/HCPCS: 99212 ==

== ENCOUNTER 2023-05-20 09:05 | Outpatient (REF) | payer OTHER, SELFPAY ==
[2023-05-20 09:18] LABS: MANUAL DIFF FLAG NO
[2023-05-20 09:20] LABS: Basophils Percent Auto 0.7 % (0-2); Eosinophils Absolute Auto 0.1 X10*3/uL (0.0-0.4); Eosinophils Percent Auto 1.6 % (0-4); Hematocrit 39.2 % (37.0-47.0); Hemoglobin 12.9 g/dl (12.0-16.0); Imm Gran Abs Auto 0.02 X10*3/uL (0.00-0.03); Imm Gran Pct Auto 0.5 % (0.0-0.4); Lymphocytes Absolute Auto 1.7 X10*3/uL (1.2-4.9); Lymphocytes Percent Auto 37.2 % (20-40); Mean Corpuscular HGB Conc 32.9 g/dl (31.0-35.0); Mean Corpuscular Hemoglobin 29.7 pg (27.0-33.0); Mean Corpuscular Volume 90.1 fL (80.0-98.0); Mean Platelet Volume 8.8 fL (9.4-12.3); Monocytes Absolute Auto 0.5 X10*3/uL (0.1-1.2); Monocytes Percent Auto 10.2 % (2-11); Neutrophils Absolute Auto 2.2 x10*3/uL (2.0-8.3); Neutrophils Percent Auto 49.8 % (45-73); Platelet Count 182 X10*3/uL (160-400); Red Blood Count 4.35 X10*6/uL (4.20-5.50); Red Cell Distribution Width 13.7 % (11.0-16.0); White Blood Count 4.4 X10*3/uL (4.8-10.8)
[2023-05-20 09:34] LABS: Alanine Aminotransferase 17 U/L (0-31); Alkaline Phosphatase 36 U/L (39-117); Anion Gap 10 (12-20); Aspartate Amino Transferase 16 U/L (5-31); Bilirubin Total 0.5 mg/dL (0.0-1.0); Blood Urea Nitrogen 21 mg/dL (9-16); Calcium 9.2 mg/dL (8.4-10.2); Carbon Dioxide 24 mmol/L (22-29); Chloride 112 mmol/L (96-108); Estimated Glomerular Filt Rate > 60; Glucose Random 95 mg/dL (60-115); Potassium 4.1 mmol/L (3.3-5.1); Sodium 142 mmol/L (135-145); Total Protein 6.5 g/dL (6.5-8.0)
== END 2023-05-20 09:06 | disposition home or self-care (01) ==
LOC: HO.LAB 09:05
PROVIDERS: Internal Medicine; PCP Physician Assistant; Visit Provider Physician Assistant
DX: C50.919 Malignant neoplasm of unspecified site of unspecified female breast (principal)
CPT/HCPCS: 36415; 80053; 85025

== ENCOUNTER 2023-07-29 10:50 | Emergency (ER) | payer OTHER, SELFPAY ==
--- NOTE | ~2023-07-29 | CT_ITS ---
EXAMINATION: CT HEAD W/O IV CONTRAST CT FACIAL BONES WITHOUT IV CONTRAST CT CERVICAL SPINE W/O IV CONTRAST CLINICAL INFORMATION: History of fall with head strike, right facial pain. COMPARISON: Prior CT exams from 11/04/2021 and 03/16/2022 TECHNIQUE: Head - Contiguous axial imaging of the head was performed from the skull base to the vertex without the administration of intravenous contrast, and axial images are reconstructed at 0.6 mm, 2 mm and 5 mm slice thickness. Cervical spine and facial bones - Volumetric, helical CT acquisitions of the cervical spine and facial bones obtained without contrast; in addition to the standard set of axial images, multiplanar reformatted images were provided in the coronal and sagittal imaging planes. This CT examination was performed using dose optimization techniques as appropriate, variously including the following: *Automated exposure control *Adjustment of mA and/or kV according to patient size (this includes techniques or standardized protocols for targeted exams where dose is matched to indication/reason for exam; i.e. extremities or head) *Use of iterative reconstruction technique DLP: 1212 mGy-cm (total) FINDINGS: HEAD: No evidence of intracranial hemorrhage, major vascular territory infarction, focal mass effect or midline shift. Robles to white matter differentiation is preserved. The sulci and basilar cisterns are unremarkable. The ventricles have normal size and configuration. No hydrocephalus or extra-axial fluid collections. Atherosclerotic calcification of cavernous carotid arteries. Soft tissue swelling in the right frontal scalp without calvarial fracture. FACIAL BONES: The globes and orbital allison, including lamina papyracea, are intact. The orbital apex, optic canals, and retrobulbar fat planes are normal. The maxilla, mandible and temporomandibular joints are intact. The pterygoid plates and zygomatic arches are normal. Chronic inward depression at the tip of the nasal bones is suspected be sequela of remote trauma. No acute nasal bone fracture. Mild mucous is seen along the posteromedial wall of the left maxillary sinus. Otherwise, the paranasal sinuses are well-aerated and the ostiomeatal units are patent. No air-fluid levels within the paranasal sinuses. CERVICAL SPINE: No acute osseous abnormalities within the spine compared to 03/16/2022. The skull base, C1 and C2 lateral masses and atlantodental articulation are intact. Calcium deposition (likely calcium pyrophosphate dihydrate crystal deposition) along the transverse ligament posterior to the dens. No dens fracture. Bone island within the dens. No suspicious osseous lesions. Chronic multilevel facet osteoarthritis and chronic mild degenerative anterolisthesis at C2-C3, C3-C4 and C7-T1. Degenerative disc space loss is mild at C3-C4 and [id number] at C6-C7. [id number] bilateral neural foraminal stenosis at C3-C4. Surgical changes from prior discectomy and anterior fusion at C4-C5 with fusion hardware remaining in stable position compared to 03/16/2022. There is postoperative fusion between the C5 and C6 vertebral bodies. No fractures in the anterior or posterior elements. No prevertebral edema or soft tissue hematoma. Posterior disc-osteophyte complex at C6-C7 causes mild spinal canal stenosis. At C6-C7, there is chronic left worse than right neural foraminal stenosis. The visualized upper lobes are unremarkable. No pneumothorax. Chondrocalcinosis at sternoclavicular joints. Thyroid gland is atrophied. 1 x 1.6 cm soft tissue nodule projects posterior to the lower pole of the left thyroid gland. This nodule is new compared to 07/11/2019. It was 0.9 x 1.2 cm on 11/04/2021 and 1 x 1.3 cm on 03/16/2022. CT/CT cervical spine wo IV con IMPRESSION: * No intracranial hemorrhage or other acute intracranial pathology. * No fracture or traumatic subluxation in the chronically degenerated cervical spine. * Chronic mild degenerative anterolisthesis is noted at C2-C3, C3-C4 and C7-T1. * No evidence of acute maxillofacial bone injury. * There is posttraumatic soft tissue swelling of the right frontal scalp without calvarial fracture. * A soft tissue nodule located posterior to the lower left thyroid has increased in size, possibly representing a parathyroid adenoma.
[2023-07-29 10:55] VITALS: BP 150/88; BP 160/94; PULSE 83; PULSE 94; RESP 16; TEMP 36.4; O2SAT 95; O2SAT 96; BMI 22.3
[2023-07-29 11:00] VITALS: BP 149/97; PULSE 86; RESP 17; O2SAT 98
--- NOTE | 2023-07-29 11:05 | PC.NURSE ---
Pt presents to ED via EMS. Reports mechanical trip and fall outside while carrying case of loera. Pt fell forward and hit head on concrete. Fall was witnessed by bystander, no LOC. Pt denies LOC, blood thinners, head/neck or back pain. Pt has hx of cerebral palsy, trouble ambulating at baseline, is supposed to wear helmet but was not at time of fall. Alert and oriented, speech slurred at baseline. Breathing even and unlabored. Lac to right eyebrow area and upper lip. Area cleaned with sterile water, bleeding controlled. Swelling and abrasion noted to right knee. VSS. C-collar by EMS
--- NOTE | 2023-07-29 12:17 | ED.FALL ---
HPI - Fall General Chief Complaint: Fall Stated Complaint: WITNESSED FALL, +HS -THINNERS +HEAD LAC, +COLLAR Time Seen by Provider: 07/29/23 12:11 Source: patient and RN notes reviewed Mode of arrival: ambulatory Limitations: no limitations History of Present Illness ED Provider: Bethany Gonzalez PA-C HPI Narrative: This is a 68-year-old female, with a history of cerebral palsy, and hypertension, not on anticoagulants, who presents emergency department with complaints of mechanical fall. Patient reports that she tripped and fell forward striking her head on pavement. There was no loss of consciousness. This was witnessed by bystanders and witnessed a trip and fall forward. She was placed in a cervical collar by EMS. She states that she typically wears a helmet due to trouble walking which is her baseline however was not wearing an at the time of the fall. She reports that she is feeling well other than pain surrounding the wound on her forehead. She denies any headache, dizziness blurred vision, double vision, chest pain or shortness of breath. She states that she was feeling well prior to the fall. No other complaints or concerns at this time. MD complaint: fall Related Data Home Medications ?Medication ?Instructions ?Recorded ?Confirmed albuterol sulfate 2.5 mg/3 mL 2.5 mg inhalation Q4H PRN 11/14/19 05/21/23 (0.083 %) solution for nebulization Shortness Of Breath ondansetron 4 mg disintegrating 1 tab PO Q6H PRN nausea/vomiting 06/18/21 05/21/23 tablet Previous Rx's ?Medication ?Instructions ?Recorded acetaminophen 650 mg 650 mg PO Q12H 30 days #60 tabs 09/05/21 tablet,extended release kotex pads #30 ea 07/23/22 wipes #300 ea 07/23/22 cyanocobalamin (vitamin B-12) 1,000 mcg PO DAILY #90 tabs 09/14/22 1,000 mcg tablet (Vitamin B-12) gabapentin 300 mg capsule 900 mg (3 x 300 mg) PO TID #270 10/26/22 caps anastrozole 1 mg tablet (Arimidex) 1 tab PO DAILY #90 tabs 01/18/23 amlodipine 5 mg tablet (Norvasc) 5 mg PO DAILY #90 tabs 02/07/23 montelukast 10 mg tablet 10 mg PO BEDTIME 90 days #90 tabs 03/17/23 docusate sodium 100 mg capsule 100 mg PO BID 30 days #60 caps 04/13/23 (Colace) omeprazole 20 mg capsule,delayed 20 mg PO DAILY 30 days #30 caps 04/18/23 release ferrous sulfate 325 mg (65 mg 325 mg PO BID #60 tabs 05/03/23 iron) tablet (iron) lisinopril 20 mg tablet 20 mg PO DAILY 90 days #90 tabs 05/06/23 Paxil CR 12.5 mg tablet,extended 12.5 mg PO DAILY #90 tabs 06/14/23 release (paroxetine HCl) ibuprofen 800 mg tablet 800 mg PO Q12H PRN pain 30 days 06/21/23 #60 tabs paroxetine HCl 12.5 mg 12.5 mg PO DAILY #90 tabs 06/23/23 tablet,extended release 24 hr fluticasone 100 mcg-salmeterol 50 1 inh inhalation BID 30 days #60 ea 07/06/23 mcg/dose blistr powdr for inhalation (Wixela Inhub) Paxil CR 25 mg tablet,extended 50 mg (2 x 25 mg) PO DAILY #180 07/26/23 release (paroxetine HCl) tabs simethicone 180 mg capsule 180 mg PO BID abdominal distention 07/26/23 30 days #60 caps Allergies Allergy/AdvReac Type Severity Reaction Status Date / Time No Known Allergies Allergy Verified 07/29/23 10:58 [No Known Allergies*] Review of Systems Review of Systems: Yes all other systems are reviewed and are negative Constitutional: Constitutional: Reports as per HPI [facility] Past Medical History Medical History Frequent falls Hx of flexible sigmoidoscopy Elevated platelet count Colonic stricture Breast CA Prolapse of intestine Rectal prolapse Invasive lobular carcinoma of breast in female Asthma MDD (major depressive disorder) Surgical History History of gastric surgery History of lumpectomy of right breast History of open sigmoidectomy Family History Family History Father Family history unknown Mother Breast cancer Brother No problems noted. Sister History of leukemia Social History Social History Household Members: None Housing: Apartment Are you a primary acute care surgeon to a significant other at home: No Do you presently have visiting nurse or other home services: Yes Alcohol intake: former Patient Tobacco Use Status: Never used Tobacco e-Cigarette/Vaping Use: Never Used Second Hand Smoke Exposure: No Advance Directives Date on File: 09/01/21 service: No Current occupational status: retired Cognitive needs: Yes (walker) Hearing needs: No Vision needs: Yes (reading glasses) Physical Exam Vital Signs: Vital Signs: Last Vital Signs Temp 98.4 F 07/29/23 16:33 Pulse 74 07/29/23 16:33 Resp 18 07/29/23 16:33 BP 154/70 H 07/29/23 16:33 Pulse Ox 96 07/29/23 16:33 O2 Del Method Room Air 07/29/23 16:33 BMI result Body Mass Index 22.3 Const: General: cooperative, comfortable and no acute distress Orientation/consciousness: patient oriented x3 Limitations: no limitations HEENT: Head: Yes normal to inspection, Yes normocephalic and Yes atraumatic Head images: 1. Irregularly 5cm partial thickness laceration noted to the right eyebrow, no active bleeding. Mild ecchymosis and hematoma noted surrounding wound 2. Ears: hearing grossly normal bilaterally General nose exam: Normal external nose present Face and sinus: Yes normal facial exam Mouth: Normal oral and palatal mucosa present, oropharynx normal and moist mucous membranes Throat: Yes posterior oropharynx normal Eyes: General: appearance normal, both eyes and all related structures Eyelids: Yes eyelids normal Conjunctivae: conjunctivae normal Sclerae: sclerae normal Pupils: Equal, round and reactive pupils present EOM: EOMs intact bilaterally Neck: Other: No midline c-spine tenderness on examination, full ROM of her neck Neck: Yes normal visual inspection, Yes full ROM and Yes no lymphadenopathy Lymphatic: no lymphadenopathy noted Chest: Chest palpation & inspection: normal inspection of the chest Resp: Effort & Inspection: normal respiratory effort and able to speak in complete sentences Auscultation: clear to auscultation bilaterally, no crackles, no rales, no rhonchi and no wheezes Cardio: Rate: regular rate Rhythm: regular rhythm Heart sounds: S1 normal heart sound present and S2 normal heart sound present GI: Inspection: Yes normal to inspection Skin: General skin exam: no rashes or lesions noted Trauma: no lacerations or abrasions Wounds: no wounds Neuro: General: patient oriented x3 and moves all extremities Cranial nerves: Yes Equal, round and reactive pupils present Extrem: General: Yes normal to inspection Right upper extremity: normal to inspection Left upper extremity: normal to inspection Right lower extremity: normal to inspection Left lower extremity: normal to inspection Course Reevaluation(s) Reevaluation #1: CT head and neck and facial bones unremarkable for acute process. Wound closed using sutures, see procedure note. Pt tolerated procedure well. Pt d/c home with strict return precautions. Medications Administered Discontinued Medications Generic Name Dose Route Start Last Admin Trade Name Lisandro PRN Reason Stop Dose Admin Bacitracin 1 appl 07/29/23 16:04 07/29/23 16:25 Bacitracin Oint 0.9 Gm Packet TOPICAL 07/29/23 16:05 1 appl ONCE ONE Administration Protocol Lidocaine HCl 5 ml 07/29/23 14:23 07/29/23 14:56 Lidocaine Hcl 1 % Mpf 5 Ml Vial INFILTRATI 07/29/23 14:24 5 ml ONCE ONE Administration Lidocaine HCl 5 ml 07/29/23 14:58 07/29/23 15:24 Lidocaine Hcl 1 % Mpf 5 Ml Vial INFILTRATI 07/29/23 14:59 5 ml ONCE ONE Administration Procedures Laceration Laceration 1: Site: face Side (If applicable): right Size (cm): 5 Description: irregular Depth: simple, single layer Local Anesthetic: lidocaine 1% Amount of anesthesia used (mL): 8 Pre-repair: wound explored, irrigated extensively and deep structures intact Skin layer closed with: nylon Size (cm): 5-0 and 6-0 Number of sutures: 12 Technique: simple, interrupted Medical Decision Making Medical Decision Making MDM Narrative: This is a 68-year-old female who presents emergency department with complaints of facial laceration which occurred just prior to arrival. She had a trip and fall and struck her head on pavement. No LOC. This fall was witnessed by bystanders. On arrival, patient is alert and oriented x4. She is in a cervical collar placed by EMS Differential Diagnosis Differential Diagnoses: The differential diagnosis associated with the presentation includes ICH, SDH, fracture, abrasion, laceation Admission/Observation Consideration of admission/observation: Escalation of care including admission/observation considered Escalation of care including admission/observation considered however given workup today not warranted at this time. Independent Interpretation I performed an independent interpretation of an: CT Scan Interpretation: CT/CT head/brain wo IV con IMPRESSION: * No intracranial hemorrhage or other acute intracranial pathology. * No fracture or traumatic subluxation in the chronically degenerated cervical spine. * Chronic mild degenerative anterolisthesis is noted at C2-C3, C3-C4 and C7-T1. * No evidence of acute maxillofacial bone injury. * There is posttraumatic soft tissue swelling of the right frontal scalp without calvarial fracture. * A soft tissue nodule located posterior to the lower left thyroid has increased in size, possibly representing a parathyroid adenoma. Dictated By: Chance Jeffery MD RDER #: [id number] CT/CT facial bones wo IV con IMPRESSION: * No intracranial hemorrhage or other acute intracranial pathology. * No fracture or traumatic subluxation in the chronically degenerated cervical spine. * Chronic mild degenerative anterolisthesis is noted at C2-C3, C3-C4 and C7-T1. * No evidence of acute maxillofacial bone injury. * There is posttraumatic soft tissue swelling of the right frontal scalp without calvarial fracture. * A soft tissue nodule located posterior to the lower left thyroid has increased in size, possibly representing a parathyroid adenoma. Dictated By: Chance Jeffery MD Radiology Impression Discussion of test interpretation with radiology: I have reviewed the radiologist's reading. External Record Review External record reviewed: Inpatient record, Office record, Outpatient record, Prior outpatient labs, Prior outpatient radiology, Primary care record and Outside ED record Discharge Plan Discharge Clinical Impression: Laceration of face, Fall Patient Disposition: Home, Self-Care Instructions: Care For Your Stitches (ED), Laceration (ED), Fall Prevention (ED) Additional Instructions: You were seen in the emergency department after a trip and fall. Your head CT and neck CT did not show any new injury. We placed 12 stitches in your forehead. Please have stitches removed in 5 days. You may return here or follow up with your PCP to have these removed. You may gently cleanse area with mild soap and water. Keep area clean and dry. Pat area dry if needed. Do not pick at wound. If any new or worsening symptoms occur including but not severe headache, dizziness, blurred vision, chest pain, shortness of breath, please return for re-evaluation. Prescriptions: No Action (DME) kotex pads super See Rx Instructions .Route .MEDSUPPLY Qty: 30 3RF Rx Instructions: As directed (DME) wipes See Rx Instructions .Route .MEDSUPPLY Qty: 300 0RF Rx Instructions: As directed gabapentin 300 mg capsule 900 mg PO TID Qty: 270 6RF amlodipine [Norvasc] 5 mg tablet 5 mg PO DAILY Qty: 90 1RF docusate sodium [Colace] 100 mg capsule 100 mg PO BID 30 Days Qty: 60 3RF omeprazole 20 mg capsule,delayed release(DR/EC) 20 mg PO DAILY 30 Days Qty: 30 3RF lisinopril 20 mg tablet 20 mg PO DAILY 90 Days Qty: 90 1RF paroxetine HCl [Paxil CR] 12.5 mg tablet extended release 24 hr 12.5 mg PO DAILY Qty: 90 3RF ibuprofen 800 mg tablet 800 mg PO Q12H PRN (Reason: pain) 30 Days Qty: 60 3RF paroxetine HCl 12.5 mg tablet extended release 24 hr 12.5 mg PO DAILY Qty: 90 1RF fluticasone propion-salmeterol [Wixela Inhub] 100-50 mcg/dose blister with device 1 inh inhalation BID 30 Days Qty: 60 1RF paroxetine HCl [Paxil CR] 25 mg tablet extended release 24 hr 50 mg PO DAILY Qty: 180 2RF Rx Instructions: take with paxil cr 12.5 mg simethicone 180 mg capsule 180 mg PO BID 30 Days Qty: 60 3RF cyanocobalamin (vitamin B-12) [Vitamin B-12] 1,000 mcg Tablet 1,000 mcg PO DAILY Qty: 90 3RF anastrozole [Arimidex] 1 mg tablet 1 tab PO DAILY Qty: 90 3RF ferrous sulfate [iron] 325 mg (65 mg iron) Tablet 325 mg PO BID Qty: 60 3RF ondansetron 4 mg tablet,disintegrating 1 tab PO Q6H PRN (Reason: nausea/vomiting) albuterol sulfate 2.5 mg /3 mL (0.083 %) solution for nebulization 2.5 mg inhalation Q4H PRN (Reason: Shortness Of Breath) acetaminophen 650 mg tablet extended release 650 mg PO Q12H 30 Days Qty: 60 1RF montelukast 10 mg tablet 10 mg PO BEDTIME 90 Days Qty: 90 1RF Interventions: ED Discharge Assessment Last Done: 07/29/23 16:33 Discharge Date/Time: 07/29/23 16:34 Print Language: Italian
[2023-07-29 13:07] VITALS: BP 143/80; PULSE 70; RESP 17; TEMP 36.7; O2SAT 96
[2023-07-29] MEDS: Lidocaine HCl 1 % MPF 5 ML VIAL INFILTRATI ×2 (14:56→15:24)
[2023-07-29] MEDS: Bacitracin Oint 0.9 GM PACKET 1 APPL TOPICAL (16:25)
[2023-07-29 16:32] VITALS: BP 154/70; PULSE 74; RESP 18; TEMP 36.9; O2SAT 96
[2023-07-29 16:33] VITALS: BP 154/70; PULSE 74; RESP 18; TEMP 36.9; O2SAT 96
== END 2023-07-29 16:34 | disposition home or self-care (01) ==
PROVIDERS: Emergency Provider Emergency Medicine; PCP Physician Assistant
DX: S01.111A Laceration without foreign body of right eyelid and periocular area, initial encounter (principal); W01.0XXA Fall on same level from slipping, tripping and stumbling without subsequent striking against object, initial encounter; R29.6 Repeated falls; Z91.81 History of falling; Y93.01 Activity, walking, marching and hiking; Y92.480 Sidewalk as the place of occurrence of the external cause; Y99.9 Unspecified external cause status
CPT/HCPCS: 12013; 70450; 70486; 72125; 99284

== ENCOUNTER 2023-08-03 10:55 | Outpatient (AMB) | payer OTHER, SELFPAY ==
--- NOTE | 2023-08-03 11:38 | A.OFFPC_ITS ---
Vital Signs 3 08/03/23 11:51 Height 5 ft 8 in Weight 146 lb BMI 22.2 BP 130/80 Blood Pressure Location Lt brachial Position Sitting Pulse 74 Pulse Source Pulse Oximeter Pulse Oximetry (%) 95 Oxygen Delivery Method Room Air Intake Visit Reasons: stitches removed by 08/04/23 Intake Note: Patient is here to follow-up after a visit the emergency department at [facility] on 07/29/23 due to a fall, here for suture removal on face. Automotive Quality Engineer Required: No Accompanied by: Self / Same As Patient Allergies No Known Allergies [No Known Allergies*] Allergy (Verified 08/03/23 11:54) Tobacco use date assessed: 03/17/23 Fall risk assessment: 1 Fall in past year (Fall on 07/29/23/seen at the [facility]. ) Last assessed Fall Risk: 08/03/23 Dental Screening Dental Screen Date: 03/17/23 HPI stitches removed by 08/04/23 2 HPI0 Details Patient is a 68-year-old female here today for an ER follow-up visit. She suffered a mechanical fall resulting in a laceration over her right eyebrow. She did receive# 12 sutures over her upper right eyebrow. [facility] Medical History Frequent falls Hx of flexible sigmoidoscopy Elevated platelet count Colonic stricture Breast CA Prolapse of intestine Rectal prolapse Invasive lobular carcinoma of breast in female Asthma MDD (major depressive disorder) Surgical History History of gastric surgery History of lumpectomy of right breast History of open sigmoidectomy Family History Father Family history unknown Mother Breast cancer Brother No problems noted. Sister History of leukemia Social History Household Members: None Housing: Apartment Are you a primary career advisor to a significant other at home: No Do you presently have visiting nurse or other home services: Yes Alcohol intake: former Patient Tobacco Use Status: Never used Tobacco e-Cigarette/Vaping Use: Never Used Second Hand Smoke Exposure: No Advance Directives Date on File: 09/01/21 service: No Current occupational status: retired Cognitive needs: Yes (walker) Hearing needs: No Vision needs: Yes (reading glasses) Questionnaire Thrive Questionnaire Date Thrive assessed: 03/17/23 BRITNEY-7 AMB Questionnaire BRITNEY-7 Date BRITNEY - 7 assessed: 03/17/23 Source: Developed by Drs. Tin Arriaga, Sia Raymundo, Ean Miles and colleagues, with an educational bernarda from [employer]. Review of Systems Const Denies headache(s) Eyes Denies loss of vision ENT Denies vertigo, Denies dizziness, Denies headache(s) and Denies sore throat Card Denies chest pain, Denies leg edema and Denies lightheadedness Resp Denies cough, Denies hemoptysis and Denies wheezing GI Denies abdominal pain, Denies melena, Denies constipation, Denies diarrhea and Denies vomiting Denies urinary frequency, Denies dysuria and Denies urinary urgency Musc Denies arthralgias, Denies joint swelling, Denies numbness and Denies tingling Neuro Denies Abnormal speech present, Denies behavioral changes, Denies vertigo, Denies dizziness, Denies headache(s), Denies loss of vision, Denies memory loss, Denies numbness and Denies tingling Psych Denies anxiety, Denies behavioral changes, Denies depression, Denies memory loss and Denies panic attacks Mir/Lymph Denies easy bleeding and Denies easy bruising Aller/Immun Denies wheezing Physical exam (Primary Care) Vital Signs: Last Vital Signs Pulse 74 08/03/23 11:51 BP 130/80 08/03/23 11:51 Pulse Ox 95 08/03/23 11:51 Oxygen Delivery Method Room Air 08/03/23 11:51 BMI result Body Mass Index 22.2 Tobacco/Smoking Status: Tobacco use Status Tobacco use date assessed 03/17/23 08/03/23 11:38 Patient Tobacco Use Status Never used Tobacco 08/03/23 11:38 e-Cigarette/Vaping Use Never Used 08/03/23 11:38 Thrive Assessment: Date of Thrive Assessment Date Thrive assessed 03/17/23 08/03/23 11:38 Const General: healthy appearing, no acute distress, alert and awake Nutritional Appearance: well nourished Orientation/consciousness: oriented to person, oriented to place and oriented to time HENMT Head images: 2 1. HEALING LACERATION OVER THE UPPER RIGHT EYEBROW.# [address] Ears: TM's normal bilaterally General nose exam: Normal nasal mucous membranes and turbinates present Eyes Conjunctivae: conjunctivae normal Sclerae: sclerae normal Pupils: Equal, round and reactive pupils present Neck Neck: Yes no lymphadenopathy and Yes no JVD Thyroid: Thyroid normal Carotids: no bruits Resp Effort & Inspection: normal respiratory effort and not tachypneic Auscultation: no crackles, no rales, no rhonchi and no wheezes Cardio Rate: regular rate Rhythm: regular rhythm Heart sounds: no murmurs and normal S1 and S2 GI Palpation (GI): Soft to palpation, nontender, no hepatomegaly and no splenomegaly Auscultation: normal bowel sounds Skin General skin exam: no rashes or lesions noted and dry skin Neuro General: oriented to person, oriented to place and oriented to time Cranial nerves: Yes Equal, round and reactive pupils present Speech: No Abnormal speech present Gait exam (Neuro): Normal gait present Motor exam (neuro): no tremor noted Extrem Right upper extremity: full ROM Left upper extremity: full ROM Right lower extremity: full ROM; no edema Left lower extremity: full ROM; no edema Psych Mental Status: mental status grossly normal Speech and movement: Normal speech and movement present Affect: normal affect Attitude: cooperative Thought process: Normal thought process present Assessment and Plan Assessment & Plan (1) Laceration of head: Code(s): S01.91XA - Laceration without foreign body of unspecified part of head, initial encounter Qualifiers: Encounter type: subsequent encounter Foreign body presence: without foreign body Laterality: right Location of open wound of head: periocular area Qualified Code(s): S01.111D - Laceration without foreign body of right eyelid and periocular area, subsequent encounter Plan: PER HPI (2) Encounter for removal of sutures: Code(s): Z48.02 - Encounter for removal of sutures Plan: #12 SUTURES REMOVED FROM RIGHT UPPER EYEBROW WITHOUT ANY COMPLICATIONS. LACERATION. WELL HEALED WITHOUT ANY SIGNS OF INFECTION. Coding Level of Care Code Est Pt Level 3 (35460) Diagnoses Laceration of right periocular area without foreign body, subsequent encounter S01.111D Encounter type: subsequent encounter Foreign body presence: without foreign body Laterality: right Location of open wound of head: periocular area Encounter for removal of sutures Z48.02
[2023-08-03 11:51] VITALS: BP 130/80; PULSE 74; O2SAT 95; BMI 22.2
== END 2023-08-03 13:29 | disposition home or self-care (01) ==
PROVIDERS: PCP Physician Assistant; Visit Provider Physician Assistant
DX: S01.111D Laceration without foreign body of right eyelid and periocular area, subsequent encounter (principal); W19.XXXD Unspecified fall, subsequent encounter; Z48.02 Encounter for removal of sutures
CPT/HCPCS: 99213

== ENCOUNTER 2023-08-24 13:48 | Emergency (ER) | payer OTHER, SELFPAY ==
[2023-08-24 14:05] VITALS: BP 141/93; PULSE 102; RESP 16; TEMP 36.7; O2SAT 96; BMI 27.5
--- NOTE | 2023-08-24 14:05 | ED.LOWEXIN ---
HPI - Extremity Injury (Lower) General Chief Complaint: Extremity Injury, Lower Stated Complaint: knee pain Time Seen by Provider: 08/24/23 14:11 Source: patient, RN notes reviewed and old records reviewed Mode of arrival: ambulatory Limitations: no limitations History of Present Illness ED Provider: Padmini Dominguez HPI Narrative: 68 yo female with history of CP, recurrent falls, hx chronic right knee pain and arthritis who [facility] who presents to the ER for evaluation of acute on chronic right knee pain. She fell a few weeks ago. She saw her PCP and had x-rays done. She was unable to go see Dr. Coronel recently for a cortisone injection, which she reports work well for her pain. She has been getting them for years with good effect. She presents today seeking cortisone injection. Her right knee is swollen. She reports pain when she does not take ibuprofen 800 mg. worse in the mornings and with ambulation. MD complaint: knee injury Onset (ago): week(s) Injury: Right: knee Type of Injury: blunt Place: home Severity: moderate Severity scale (1-10): 5 Relieving factors: NSAID Exacerbating factors: weight bearing, movement and palpation Context: fall Associated symptoms: swelling and ambulatory Other symptoms: none Treatments prior to arrival: NSAIDS Related Data Home Medications ?Medication ?Instructions ?Recorded ?Confirmed albuterol sulfate 2.5 mg/3 mL 2.5 mg inhalation Q4H PRN 11/14/19 05/21/23 (0.083 %) solution for nebulization Shortness Of Breath ondansetron 4 mg disintegrating 1 tab PO Q6H PRN nausea/vomiting 06/18/21 05/21/23 tablet Previous Rx's ?Medication ?Instructions ?Recorded acetaminophen 650 mg 650 mg PO Q12H 30 days #60 tabs 09/05/21 tablet,extended release kotex pads #30 ea 07/23/22 wipes #300 ea 07/23/22 cyanocobalamin (vitamin B-12) 1,000 mcg PO DAILY #90 tabs 09/14/22 1,000 mcg tablet (Vitamin B-12) gabapentin 300 mg capsule 900 mg (3 x 300 mg) PO TID #270 10/26/22 caps anastrozole 1 mg tablet (Arimidex) 1 tab PO DAILY #90 tabs 01/18/23 amlodipine 5 mg tablet (Norvasc) 5 mg PO DAILY #90 tabs 02/07/23 montelukast 10 mg tablet 10 mg PO BEDTIME 90 days #90 tabs 03/17/23 docusate sodium 100 mg capsule 100 mg PO BID 30 days #60 caps 04/13/23 (Colace) omeprazole 20 mg capsule,delayed 20 mg PO DAILY 30 days #30 caps 04/18/23 release ferrous sulfate 325 mg (65 mg 325 mg PO BID #60 tabs 05/03/23 iron) tablet (iron) lisinopril 20 mg tablet 20 mg PO DAILY 90 days #90 tabs 05/06/23 Paxil CR 12.5 mg tablet,extended 12.5 mg PO DAILY #90 tabs 06/14/23 release (paroxetine HCl) ibuprofen 800 mg tablet 800 mg PO Q12H PRN pain 30 days 06/21/23 #60 tabs paroxetine HCl 12.5 mg 12.5 mg PO DAILY #90 tabs 06/23/23 tablet,extended release 24 hr fluticasone 100 mcg-salmeterol 50 1 inh inhalation BID 30 days #60 ea 07/06/23 mcg/dose blistr powdr for inhalation (Wixela Inhub) Paxil CR 25 mg tablet,extended 50 mg (2 x 25 mg) PO DAILY #180 07/26/23 release (paroxetine HCl) tabs simethicone 180 mg capsule 180 mg PO BID abdominal distention 07/26/23 30 days #60 caps Allergies Allergy/AdvReac Type Severity Reaction Status Date / Time No Known Allergies Allergy Verified 08/24/23 14:11 [No Known Allergies*] Review of Systems Review of Systems: Yes all other systems are reviewed and are negative FOR[facility]LY [facility] Past Medical History Medical History Frequent falls Hx of flexible sigmoidoscopy Elevated platelet count Colonic stricture Breast CA Prolapse of intestine Rectal prolapse Invasive lobular carcinoma of breast in female Asthma MDD (major depressive disorder) Surgical History History of gastric surgery History of lumpectomy of right breast History of open sigmoidectomy Family History Family History Father Family history unknown Mother Breast cancer Brother No problems noted. Sister History of leukemia Social History Social History Household Members: None Housing: Apartment Are you a primary career education teacher to a significant other at home: No Do you presently have visiting nurse or other home services: Yes Alcohol intake: former Patient Tobacco Use Status: Never used Tobacco e-Cigarette/Vaping Use: Never Used Second Hand Smoke Exposure: No Advance Directives Date on File: 09/01/21 service: No Current occupational status: retired Cognitive needs: Yes (walker) Hearing needs: No Vision needs: Yes (reading glasses) Physical Exam Vital Signs: Vital Signs: Last Vital Signs Temp 98.0 F 08/24/23 14:21 Pulse 102 H 08/24/23 14:21 Resp 16 08/24/23 14:21 BP 141/93 H 08/24/23 14:21 Pulse Ox 96 08/24/23 14:21 O2 Del Method Room Air 08/24/23 14:21 BMI result Body Mass Index 27.5 Appearance: Alert. Oriented X3. No acute distress. HEENT: normal inspection CVS: Normal heart rate and rhythm. Pulses normal. Respiratory: No respiratory distress. Skin: Skin warm and dry. Normal skin color. Normal skin turgor. No rashes. Extremities: moderate swelling in the suprapatellar region on the right knee with associated tenderness, mild warmth without erythema. limited passive flexion of the knee due to pain. Neuro: Oriented X 3. No motor deficit. No sensory deficit. ambulating with walking rollator Medical Decision Making Medical Decision Making MDM Narrative: 68 yo female with history of CP, recurrent falls, hx chronic right knee pain and arthritis who follows w/ Dr. Coronel from [facility] who presents to the ER for evaluation of acute on chronic right knee pain. had recent xray. exam is c/w suprapatellar effusion. no erythema or significant warmth to suggest septic joint or gout. seeking cortisone injection today, counseled on need for f/u with orthopedics placed in felipe wrap for compression and support. discussed RICE stable for d/c home Differential Diagnosis Differential Diagnoses: The differential diagnosis associated with the presentation includes OA, knee effusion, gout, septic joint, ligamentous injury External Record Review External record reviewed: Office record, Outpatient record, Prior outpatient labs and Prior outpatient radiology Tests considered The following testing was considered but not selected: xr knee considered - reports she had one last week Prescription Management I considered prescription management with: Pain Medication Chronic Conditions Patient?s care impacted by: Other (CP, recurrent falls ) Social Determinants Patient?s care significantly limited by Social Determinants of Health including: Other Social Determinant of Health Critical Care Time Critical Care Time Critical Care Time: No Discharge Plan Discharge Clinical Impression: Chronic knee pain Qualifiers: Laterality: right Qualified Code(s): M25.561 - Pain in right knee Effusion of knee Qualifiers: Laterality: right Qualified Code(s): M25.461 - Effusion, right knee Patient Disposition: Home, Self-Care Instructions: Knee Pain (ED) Additional Instructions: Follow up with Orthopedics for further evaluation and treatment. Rest, ice, and elevate the knee when possible Continue ibuprofen If you develop new or worsening symptoms call 911 or come back to the ER for further evaluation. Prescriptions: No Action (DME) kotex pads super See Rx Instructions .Route .MEDSUPPLY Qty: 30 3RF Rx Instructions: As directed (DME) wipes See Rx Instructions .Route .MEDSUPPLY Qty: 300 0RF Rx Instructions: As directed gabapentin 300 mg capsule 900 mg PO TID Qty: 270 6RF amlodipine [Norvasc] 5 mg tablet 5 mg PO DAILY Qty: 90 1RF docusate sodium [Colace] 100 mg capsule 100 mg PO BID 30 Days Qty: 60 3RF omeprazole 20 mg capsule,delayed release(DR/EC) 20 mg PO DAILY 30 Days Qty: 30 3RF lisinopril 20 mg tablet 20 mg PO DAILY 90 Days Qty: 90 1RF paroxetine HCl [Paxil CR] 12.5 mg tablet extended release 24 hr 12.5 mg PO DAILY Qty: 90 3RF ibuprofen 800 mg tablet 800 mg PO Q12H PRN (Reason: pain) 30 Days Qty: 60 3RF paroxetine HCl 12.5 mg tablet extended release 24 hr 12.5 mg PO DAILY Qty: 90 1RF fluticasone propion-salmeterol [Wixela Inhub] 100-50 mcg/dose blister with device 1 inh inhalation BID 30 Days Qty: 60 1RF paroxetine HCl [Paxil CR] 25 mg tablet extended release 24 hr 50 mg PO DAILY Qty: 180 2RF Rx Instructions: take with paxil cr 12.5 mg simethicone 180 mg capsule 180 mg PO BID 30 Days Qty: 60 3RF cyanocobalamin (vitamin B-12) [Vitamin B-12] 1,000 mcg Tablet 1,000 mcg PO DAILY Qty: 90 3RF anastrozole [Arimidex] 1 mg tablet 1 tab PO DAILY Qty: 90 3RF ferrous sulfate [iron] 325 mg (65 mg iron) Tablet 325 mg PO BID Qty: 60 3RF ondansetron 4 mg tablet,disintegrating 1 tab PO Q6H PRN (Reason: nausea/vomiting) albuterol sulfate 2.5 mg /3 mL (0.083 %) solution for nebulization 2.5 mg inhalation Q4H PRN (Reason: Shortness Of Breath) acetaminophen 650 mg tablet extended release 650 mg PO Q12H 30 Days Qty: 60 1RF montelukast 10 mg tablet 10 mg PO BEDTIME 90 Days Qty: 90 1RF Referrals: [facility] [Provider Group] (right knee osteoarthritis, wants cortisone injection) Polo Nascimento PA-C [Primary Care Provider] - Interventions: ED Discharge Assessment Last Done: 08/24/23 14:21 Discharge Date/Time: 08/24/23 14:21 Print Language: Slovenian
[2023-08-24 14:21] VITALS: BP 141/93; PULSE 102; RESP 16; TEMP 36.7; O2SAT 96
== END 2023-08-24 14:21 | disposition home or self-care (01) ==
LOC: HO.ED 14:17
PROVIDERS: Emergency Provider Emergency Medicine Emergency Medical Services; PCP Physician Assistant
DX: M25.561 Pain in right knee (principal); M25.461 Effusion, right knee
CPT/HCPCS: 99282

== ENCOUNTER 2023-09-21 08:42 | Outpatient (AMB) | payer OTHER, SELFPAY ==
--- NOTE | 2023-09-21 08:46 | MHC.OFFVIS ---
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 Patient reports she would like to re-establish care with Dr. Roldan as he has seen her in the past for her right knee. States that she finds relief with cortisone injections every 3 months. She would like to discuss repeating injection today. She has done physical therapy exercises which aggravated her pain. She has also taken Tylenol and anti-inflammatory medicines which gave minimal relief. Allergies No Known Allergies [No Known Allergies*] Allergy (Verified 09/21/23 08:53) Medication List - Last Reconciled 09/21/23 by Eric Roldan MD acetaminophen ER 650 mg PO Q12H 30 days albuterol sulfate 2.5 mg inhalation Q4H PRN amlodipine (Norvasc) 5 mg PO DAILY anastrozole (Arimidex) 1 tab PO DAILY cyanocobalamin (vitamin B-12) (Vitamin B-12) 1,000 mcg PO DAILY docusate sodium (Colace) 100 mg PO BID 30 days ferrous sulfate (iron) 325 mg PO BID fluticasone propion-salmeterol 100-50 mcg/dose (Wixela Inhub) 1 inh inhalation BID 30 days gabapentin 900 mg (3 x 300 mg) PO TID ibuprofen 800 mg PO Q12H PRN 30 days [kotex pads As directed] lisinopril 20 mg PO DAILY 90 days montelukast 10 mg PO BEDTIME 90 days omeprazole 20 mg PO DAILY 30 days ondansetron 1 tab PO Q6H PRN paroxetine HCl ER 12.5 mg PO DAILY Paxil CR (paroxetine HCl) 12.5 mg PO DAILY NS Paxil CR (paroxetine HCl) 50 mg (2 x 25 mg) PO DAILY NS simethicone 180 mg PO BID 30 days [wipes As directed] [facility] History Frequent falls Hx of flexible sigmoidoscopy Elevated platelet count Colonic stricture Breast CA Prolapse of intestine Rectal prolapse Invasive lobular carcinoma of breast in female Asthma MDD (major depressive disorder) Surgical History (Reviewed 09/21/23 @ 08:53 by Arelis Galeana [facility]) History of gastric surgery History of lumpectomy of right breast History of open sigmoidectomy Family History Father Family history unknown Mother Breast cancer Brother No problems noted. Sister History of leukemia Social History Household Members: None Housing: Apartment Are you a primary home health care case manager to a significant other at home: No Do you presently have visiting nurse or other home services: Yes Alcohol intake: former Patient Tobacco Use Status: Never used Tobacco e-Cigarette/Vaping Use: Never Used Second Hand Smoke Exposure: No Advance Directives Date on File: 09/01/21 service: No Current occupational status: retired Cognitive needs: Yes (walker) Hearing needs: No Vision needs: Yes (reading glasses) Physical Exam Vital Signs: BMI result Body Mass Index 27.5 Const Other: Well-nourished well-developed very friendly female awake alert and oriented x3 in no acute distress Extrem Other: Bilateral lower extremity examination shows good capillary refill, no skin lesions noted, normal sensation light touch Right knee examination shows a minimal effusion, palpable crepitus with range of motion, pain with range of motion, no instability Office Procedures Joint Injection/Aspiration Joint Injection/Aspiration Primary Site: right knee Prep: site was prepped using aseptic technique Injected: 40 mg of, DepoMedrol and 1% plain lidocaine Procedure: The patient tolerated the procedure well Coding 18154 - Large joint Procedure code (CPT) selection complete Results Reviewed Results Reviewed: X-rays of the patient's right knee show moderate to severe joint space narrowing most significant in the patellofemoral joint, subchondral sclerosis, no acute bony abnormalities Assessment & Plan Assessment & Plan (1) Arthritis of right knee: Code(s): M17.11 - Unilateral primary osteoarthritis, right knee Category: Medical Plan Ms. Lepe presents with right knee pain due to degenerative joint disease. I had a lengthy discussion with the patient regarding the treatment options. She wishes to hold off on surgery for as long as possible. I agree with this plan. The risks and benefits of a right knee cortisone injection were discussed at length with the patient. The patient wished to proceed with the injection. She tolerated the injection well. She will continue with her home exercise program. She will follow up with me on an as-needed basis should her symptoms not plateau at an unacceptable level over the next few months. Feel free to call me at any time should questions regarding her orthopedic management arise. I spent 22 minutes in reviewing the patient's records and imaging studies, seeing the patient and documenting in the medical record. Orders: Orders XR knee RT 3V Today M25.561 - Pain in right knee AMB Joint Injection/Aspiration Today M17.11 - Unilateral primary osteoarthritis, right knee Coding Level of Care Code Est Pt Level 3 (77210) Diagnoses Arthritis of right knee M17.11 CPT Codes Coding - 16864 Large joint: 55715 - Large joint ([id number])
[2023-09-21 08:47] VITALS: BMI 27.5
== END 2023-09-21 09:22 | disposition home or self-care (01) ==
PROVIDERS: PCP Physician Assistant; Visit Provider Orthopaedic Surgery
DX: M17.11 Unilateral primary osteoarthritis, right knee (principal)
CPT/HCPCS: 20610; 99213

== ENCOUNTER 2023-09-21 10:12 | Outpatient (REF) | payer OTHER, SELFPAY ==
--- NOTE | ~2023-09-21 | XR_ITS ---
EXAMINATION: XR KNEE, RIGHT CLINICAL INFORMATION: Right knee pain COMPARISON: None available. TECHNIQUE: Four views of the right knee. FINDINGS: No acute fracture or dislocation. Moderate degenerative changes with joint space narrowing of the tricompartments and chondrocalcinosis of the medial and lateral tibiofemoral compartments which may reflect CPPD arthropathy. Small patellar effusion. XR/XR knee RT 3V IMPRESSION: Moderate degenerative changes of the right knee. Chondrocalcinosis of the medial and lateral tibiofemoral compartments which may reflect CPPD arthropathy. Small patellar effusion. Electronically signed by: Mimi Downs MD 10/19/2023 06:28 PM EDT
== END 2023-09-21 10:13 | disposition home or self-care (01) ==
LOC: HO.HOSX 10:12
PROVIDERS: Visit Provider Orthopaedic Surgery
DX: M25.561 Pain in right knee (principal); M17.11 Unilateral primary osteoarthritis, right knee
CPT/HCPCS: 20610; 73562; 99212; J1010

== ENCOUNTER 2023-09-28 09:30 | Outpatient (REF) | payer OTHER, SELFPAY ==
[2023-09-28 10:55] LABS: Hematocrit 39.4 % (37.0-47.0); Hemoglobin 12.5 g/dl (12.0-16.0); Mean Corpuscular HGB Conc 31.7 g/dl (31.0-35.0); Mean Corpuscular Hemoglobin 28.4 pg (27.0-33.0); Mean Corpuscular Volume 89.5 fL (80.0-98.0); Mean Platelet Volume 9.4 fL (9.4-12.3); Platelet Count 256 X10*3/uL (160-400); Red Cell Distribution Width 13.4 % (11.0-16.0); White Blood Count 5.2 X10*3/uL (4.8-10.8)
[2023-09-28 11:32] LABS: Alanine Aminotransferase 15 U/L (0-31); Alkaline Phosphatase 52 U/L (39-117); Anion Gap 10 (12-20); Aspartate Amino Transferase 19 U/L (5-31); Bilirubin Total 0.3 mg/dL (0.0-1.0); Blood Urea Nitrogen 17 mg/dL (9-16); Calcium 9.1 mg/dL (8.4-10.2); Carbon Dioxide 27 mmol/L (22-29); Chloride 111 mmol/L (96-108); Cholesterol 158 mg/dL (<200); Estimated Glomerular Filt Rate > 60; Glucose Fasting 102 mg/dL (60-99); HDL Cholesterol 83 mg/dL (>40); LDL Cholesterol Calculated 59 mg/dL (<100); Potassium 4.4 mmol/L (3.3-5.1); Sodium 144 mmol/L (135-145); Total Protein 6.6 g/dL (6.5-8.0); Triglycerides 81 mg/dL (<150)
== END 2023-09-28 09:31 | disposition home or self-care (01) ==
LOC: HO.LAB 09:30
PROVIDERS: PCP Physician Assistant; Visit Provider Physician Assistant
DX: D64.9 Anemia, unspecified (principal); I10 Essential (primary) hypertension
CPT/HCPCS: 36415; 80053; 80061; 85027

== ENCOUNTER 2023-09-28 11:13 | Outpatient (AMB) | payer OTHER, SELFPAY ==
[2023-09-28 11:18] VITALS: BP 120/80; PULSE 80; O2SAT 98; BMI 23.7
--- NOTE | 2023-09-28 11:18 | MHC.PC.OV ---
Vital Signs 09/28/23 11:18 Height 5 ft 5 in Weight 142 lb 6 oz BMI 23.7 BP 120/80 Blood Pressure Location Lt brachial Position Sitting Pulse 80 Pulse Source Pulse Oximeter Pulse Oximetry (%) 98 Oxygen Delivery Method Room Air Intake Visit Reasons: pe Intake Note: Patient is here today for a physical. Repair Order Clerk Required: No Accompanied by: Self / Same As Patient Allergies No Known Allergies [No Known Allergies*] Allergy (Verified 09/28/23 11:32) Medication List - Last Reconciled 09/28/23 by Polo Nascimento PA-C acetaminophen ER 650 mg PO Q12H 30 days albuterol sulfate 2.5 mg inhalation Q4H PRN amlodipine (Norvasc) 5 mg PO DAILY anastrozole (Arimidex) 1 tab PO DAILY cyanocobalamin (vitamin B-12) (Vitamin B-12) 1,000 mcg PO DAILY docusate sodium (Colace) 100 mg PO BID 30 days ferrous sulfate (iron) 325 mg PO BID fluticasone propion-salmeterol 100-50 mcg/dose (Wixela Inhub) 1 inh inhalation BID 30 days gabapentin 900 mg (3 x 300 mg) PO TID ibuprofen 800 mg PO Q12H PRN 30 days [kotex pads As directed] lisinopril 20 mg PO DAILY 90 days montelukast 10 mg PO BEDTIME 90 days omeprazole 20 mg PO DAILY 30 days ondansetron 1 tab PO Q6H PRN paroxetine HCl ER 12.5 mg PO DAILY Paxil CR (paroxetine HCl) 12.5 mg PO DAILY NS Paxil CR (paroxetine HCl) 50 mg (2 x 25 mg) PO DAILY NS simethicone 180 mg PO BID 30 days [wipes As directed] Tobacco use date assessed: 03/17/23 Fall risk assessment: No Falls in past year Last assessed Fall Risk: 09/28/23 Dental Screening Dental Screen Date: 03/17/23 HPI pe HPI Details Patient is a 68-year-old female here today for an annual physical. ? patient has a past medical history significant for cerebral palsy, invasive ductal carcinoma of the breast, hypertension. Concern--> has been having some decreased hearing and usually has cerumen impaction bilaterally. Today bilateral ear lavage done today in office Polyarthralgia: Patient's bilateral knee pain has been much improved since she has lost weight. She has been using ibuprofen judiciously as she does note she has history of GI bleed. Patient does understand the risk of GI bleed and is willing to take the risk to help reduce her pain thus resulting in falls. CHRONIC MEDICAL CONDITIONS--> Breast cancer:? 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 She is status post lobectomy for breast cancer, she is due for repeat imaging in February 2021.? She continues on anti hormonal therapy (arimidex) without side effect. Cerebral palsy:? Continues to be very active, lately has been having more recurrent falls due to balance issues in her leg. She reports her right knee has been giving out has reestablish care with a new orthopedics and is requesting a cortisone injection. She is interested in having home physical therapy to help her with balance and lower extremity strengthening. Now currently not driving .. Hypertension:? Blood pressure acceptable today in office.? Will continue current doses of blood pressure medication.? Denies any headache, chest discomfort, shortness of breath.? . Depression: Has been very well controlled with current dose of Paxil. .. Asthma: Has been well controlled with p.r.n. use of her albuterol inhaler and daily use of her Wixela maintenance inhaler. She is interested in restarting Singulair at night to help her breathe while lying down Mammogram: Done in February of 2023, BI-RADS 2 Colorectal cancer screening: Followed by GI specialty Dr. Gillis- has had rectal prolapse Vaccines: Up-to-date with COVID vaccine, pneumonia vaccine, tetanus vaccine Laboratory Tests 09/28/23 09:44 RBC 4.40 PFSH Medical History (Updated 09/29/23 @ 07:23 by Polo Nascimento PA-C) Colonic stricture Frequent falls Hx of flexible sigmoidoscopy Elevated platelet count Colonic stricture Breast CA Prolapse of intestine Rectal prolapse Invasive lobular carcinoma of breast in female Asthma MDD (major depressive disorder) Surgical History History of gastric surgery History of lumpectomy of right breast History of open sigmoidectomy Family History Father Family history unknown Mother Breast cancer Brother No problems noted. Sister History of leukemia Social History Household Members: None Housing: Apartment Are you a primary coronary care unit nurse to a significant other at home: No Do you presently have visiting nurse or other home services: Yes Alcohol intake: former Patient Tobacco Use Status: Never used Tobacco e-Cigarette/Vaping Use: Never Used Second Hand Smoke Exposure: No Advance Directives Date on File: 09/01/21 service: No Current occupational status: retired Cognitive needs: Yes (walker) Hearing needs: No Vision needs: Yes (reading glasses) Questionnaire Thrive Questionnaire Date Thrive assessed: 03/17/23 BRITNEY-7 AMB Questionnaire BIRTNEY-7 Date BRITNEY - 7 assessed: 03/17/23 Source: Developed by Drs. Tin Arriaga, Sia Raymundo, Ean Miles and colleagues, with an educational bernarda from [employer] Review of Systems Const Denies body aches, Denies chills, Denies excessive sweating, Denies fatigue, Denies fever(s) and Denies headache(s) Eyes Denies blurry vision ENT Denies dysphagia, Denies vertigo, Denies dizziness, Denies headache(s), Denies hearing loss and Denies tinnitus Card Denies chest pain, Denies chest pain with activity, Denies syncope, Denies irregular heart rhythm and Denies dyspnea Resp Denies chest congestion, Denies cough, Denies hemoptysis, Denies dyspnea and Denies wheezing GI Denies abdominal pain, Denies melena, Denies hematochezia, Denies coffee ground emesis, Denies dysphagia, Denies diarrhea, Denies nausea and Denies vomiting Denies urinary frequency, Denies dysuria, Denies urinary hesitancy and Denies urinary urgency Musc Denies arthralgias, Denies limited range of motion, Denies muscle cramps and Denies muscle weakness Skin/Breast Denies rash and Denies skin ulcer Neuro Denies Abnormal speech present, Denies confusion, Denies vertigo, Denies dizziness, Denies syncope, Denies headache(s), Denies memory loss and Denies seizure-like activity Psych Denies anxiety, Denies confusion, Denies depression, Denies memory loss, Denies panic attacks and Denies paranoia Endo Denies excessive sweating, Denies fatigue, Denies flushing, Denies polydipsia and Denies polyuria Aller/Immun Denies wheezing Physical exam (Primary Care) Vital Signs: Last Vital Signs Pulse 80 09/28/23 11:18 BP 120/80 09/28/23 11:18 Pulse Ox 98 09/28/23 11:18 Oxygen Delivery Method Room Air 09/28/23 11:18 BMI result Body Mass Index 23.7 Tobacco/Smoking Status: Tobacco use Status Tobacco use date assessed 03/17/23 09/28/23 11:21 Patient Tobacco Use Status Never used Tobacco 09/28/23 11:21 e-Cigarette/Vaping Use Never Used 09/28/23 11:21 Thrive Assessment: Date of Thrive Assessment Date Thrive assessed 03/17/23 09/28/23 11:21 Const General: cooperative, comfortable, no acute distress, alert and awake; No confusion Orientation/consciousness: oriented to person, oriented to place, patient oriented x3 and No confusion HENMT Head: Yes normocephalic Ears: external ears normal and TM's normal bilaterally Face and sinus: No sinus tenderness Mouth: Normal oral and palatal mucosa present and tongue normal Teeth and gingiva: dentition normal and gingiva normal Throat: Yes posterior oropharynx normal, Yes tonsils normal and Yes uvula midline Eyes Conjunctivae: conjunctivae normal Sclerae: sclerae normal Pupils: Equal, round and reactive pupils present EOM: EOMs intact bilaterally Direct Ophthalmoscopy: No no photophobia Neck Neck: Yes no lymphadenopathy, No tender and Yes no JVD Thyroid: Thyroid normal Carotids: no bruits Chest Chest palpation & inspection: no tenderness Resp Effort & Inspection: normal respiratory effort, no audible wheezes, not labored and no stridor Auscultation: no crackles, no rales, no rhonchi and no wheezes Cardio Jugular venous distension: no JVD Rate: regular rate, not bradycardic and not tachycardic Rhythm: regular rhythm Bruits: no carotid bruits Peripheral pulses: Peripheral pulses 2+ throughout GI Inspection: Yes normal to inspection, No abdominal wall ecchymosis and No visible herniation Palpation (GI): Soft to palpation, nontender, no guarding, not rigid and No hepatosplenomegaly present Auscultation: normoactive bowel sounds General: Yes no CVA tenderness Back/Spine/Pelvis Back: no CVA tenderness and No back tenderness Cervical Spine: cervical ROM normal Thoracic/Lumbar Spine: thoracic and lumbar spine normal to inspection, straight leg raise negative bilaterally, No thoraco-lumbar ROM limited and No lumbar spinal tenderness Skin Lesions: no lesions Rashes: no rashes Wounds: no wounds Neuro General: oriented to person, oriented to place, patient oriented x3, CN's II-XI intact bilaterally and No confusion Cranial nerves: Yes Equal, round and reactive pupils present and Yes Normal accommodation reflex present Cognition (Neuro): normal cognition Speech: No Abnormal speech present Gait exam (Neuro): Normal gait present Motor exam (neuro): 5/5 motor strength present throughout Extrem Right upper extremity: full ROM; no cyanosis Left upper extremity: full ROM; no cyanosis Right lower extremity: no edema Left lower extremity: no edema Psych Appearance: grossly normal Mental Status: mental status grossly normal Affect: normal affect Attitude: cooperative Thought process: Normal thought process present Office Procedures Cerumen Removal From which ear canal was the cerumen removed: bilateral Removal: irrigation and otoscope w/curette Notes: patient tolerated procedure well [id number] Irrigation/Lavage Assessment and Plan Assessment & Plan (1) Annual physical exam: Code(s): Z00.00 - Encounter for general adult medical examination without abnormal findings (2) HTN (hypertension): Code(s): I10 - Essential (primary) hypertension Qualifiers: Hypertension type: primary hypertension Qualified Code(s): I10 - Essential (primary) hypertension Plan: Patient's blood pressure acceptable today in office. Will continue her current dose of amlodipine with goal blood pressure to be below 140/90 (3) Spastic cerebral palsy, congenital: Code(s): G80.1 - Spastic diplegic cerebral palsy Plan: Patient has stopped driving which has caused some depression. She does falls from time to time related to her instability. She does wear a helmet to protect her head. She does use ibuprofen which does help reduce her lower extremity pains which has thus reduce her falls. (4) Anemia: Code(s): D64.9 - Anemia, unspecified Qualifiers: Anemia type: unspecified type Qualified Code(s): D64.9 - Anemia, unspecified Plan: Will continue to follow CBC. Most recent CBC stable. We did discuss her lower intestinal disease and patient does understand she has an anastomosis. We discussed the NSAID and possible risk of GI bleed and patient does understand and accepts the possible risk as she had does help her reduce her pain and reduce her falls as well. (5) MDD (major depressive disorder): Code(s): F32.9 - Major depressive disorder, single episode, unspecified Qualifiers: Active/Remission status: currently active Major depression episode severity: moderate Major depression recurrence: recurrent Qualified Code(s): F33.1 - Major depressive disorder, recurrent, moderate Plan: Patient continues on Paxil which has been effective for her depression. She is somewhat depressed at times due to not being able drive anymore due to her cerebral palsy and frequent falls. (6) Asthma: Code(s): J45.909 - Unspecified asthma, uncomplicated Qualifiers: Asthma complication type: uncomplicated Asthma persistence: intermittent Asthma severity: mild Qualified Code(s): J45.20 - Mild intermittent asthma, uncomplicated Plan: Been well controlled with p.r.n. use of her albuterol inhaler and daily use of her Wixela. She would like to return back to using Singulair at night to help her breathing. Otherwise has no more follow-up with pulmonology (7) Frequent falls: Code(s): R29.6 - Repeated falls Plan: Has been having frequent falls secondary to her balance issues from her cerebral palsy. She does have knee instability to which she is seeing orthopedics soon and usually gets a cortisone injection. She is willing to do physical therapy at home as she has been having difficulties with getting transportation medical appointments. (8) Impacted cerumen of both ears: Code(s): H61.23 - Impacted cerumen, bilateral Plan: As per office procedure note. Orders: Referrals [facility] Referral G80.1 - Spastic diplegic cerebral palsy, R29.6 - Repeated falls Patient Instructions: Goal: Blood pressure to remain below 140/90 Barrier: Adherence to physical activity and healthy eating habits Coding Level of Care Code Est Pt Prev Care >65y(31877) Diagnoses Annual physical exam Z00.00 Primary hypertension I10 Hypertension type: primary hypertension Spastic cerebral palsy, 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 Anemia, unspecified type D64.9 Anemia type: unspecified type Moderate episode of recurrent major depressive disorder F33.1 Active/Remission status: currently active Major depression episode severity: moderate Major depression recurrence: recurrent Mild intermittent asthma without complication J45.20 Asthma complication type: uncomplicated Asthma persistence: intermittent Asthma severity: mild Frequent falls R29.6 Impacted cerumen of both ears H61.23 CPT Codes Office Procedure - CPT: 27603-Aph Irrigation/Lavage ([id number])
== END 2023-09-28 12:05 | disposition home or self-care (01) ==
PROVIDERS: PCP Physician Assistant; Visit Provider Physician Assistant
DX: Z00.00 Encounter for general adult medical examination without abnormal findings (principal); G80.1 Spastic diplegic cerebral palsy; F33.1 Major depressive disorder, recurrent, moderate; H61.23 Impacted cerumen, bilateral; I10 Essential (primary) hypertension; D64.9 Anemia, unspecified; J45.20 Mild intermittent asthma, uncomplicated; R29.6 Repeated falls
CPT/HCPCS: 69209; 99397

== ENCOUNTER 2023-10-07 09:59 | Outpatient (REF) | payer OTHER, SELFPAY ==
--- NOTE | ~2023-10-07 | XR_ITS ---
EXAMINATION: XR SHOULDER, BILATERAL CLINICAL INFORMATION: Bilateral shoulder pain COMPARISON: None. TECHNIQUE: AP and scapular Y views of each shoulder FINDINGS: Severe glenohumeral osteoarthritis bilaterally with marked narrowing, sclerosis, surface remodeling, large marginal osteophytes and loose bodies. No acute fracture. XR/XR shoulder RT min 2V IMPRESSION: Severe bilateral glenohumeral osteoarthritis. Electronically signed by: Ty Ruffin MD 10/13/2023 10:49 AM EDT
--- NOTE | ~2023-10-07 | XR_ITS ---
EXAMINATION: XR SHOULDER, BILATERAL CLINICAL INFORMATION: Bilateral shoulder pain COMPARISON: None. TECHNIQUE: AP and scapular Y views of each shoulder FINDINGS: Severe glenohumeral osteoarthritis bilaterally with marked narrowing, sclerosis, surface remodeling, large marginal osteophytes and loose bodies. No acute fracture. XR/XR shoulder LT min 2V IMPRESSION: Severe bilateral glenohumeral osteoarthritis. Electronically signed by: Ty Ruffin MD 10/13/2023 10:49 AM EDT
== END 2023-10-07 10:00 | disposition home or self-care (01) ==
LOC: HO.HOSX 09:59
PROVIDERS: PCP Physician Assistant; Visit Provider Orthopaedic Surgery
DX: M25.511 Pain in right shoulder (principal); M25.512 Pain in left shoulder; M75.42 Impingement syndrome of left shoulder; M25.811 Other specified joint disorders, right shoulder
CPT/HCPCS: 20610; 73030; 99212; J1010

== ENCOUNTER 2023-10-07 14:20 | Outpatient (AMB) | payer OTHER, SELFPAY ==
[2023-10-07 14:28] VITALS: BMI 23.6
--- NOTE | 2023-10-07 14:28 | MHC.OFFVIS ---
Vital Signs 10/07/23 14:28 Height 5 ft 5 in Weight 142 lb BMI 23.6 Intake Visit Reasons: Bilateral shoulder pain Intake Note: Nayla is a 68 year old female who presents with complaints of bilateral shoulder pains. She describes her pains as sharp in nature. Her pains have gotten worse over the last year in spite of continued non operative treatments. She has taken Tylenol and anti-inflammatory medicines which gave her minimal relief. She reports weakness when lifting her hand above shoulder height. She has done physical therapy exercises which aggravated her pain. Allergies No Known Allergies [No Known Allergies*] Allergy (Verified 10/07/23 14:29) Medication List - Last Reconciled 10/08/23 by Eric Roldan MD acetaminophen ER 650 mg PO Q12H 30 days albuterol sulfate 2.5 mg inhalation Q4H PRN amlodipine (Norvasc) 5 mg PO DAILY anastrozole (Arimidex) 1 tab PO DAILY cyanocobalamin (vitamin B-12) (Vitamin B-12) 1,000 mcg PO DAILY docusate sodium (Colace) 100 mg PO BID 30 days ferrous sulfate (iron) 325 mg PO BID fluticasone propion-salmeterol 100-50 mcg/dose (Wixela Inhub) 1 inh inhalation BID 30 days gabapentin 900 mg (3 x 300 mg) PO TID ibuprofen 800 mg PO Q12H PRN 30 days [kotex pads As directed] lisinopril 20 mg PO DAILY 90 days montelukast 10 mg PO BEDTIME 90 days omeprazole 20 mg PO DAILY 30 days ondansetron 1 tab PO Q6H PRN paroxetine HCl ER 12.5 mg PO DAILY Paxil CR (paroxetine HCl) 12.5 mg PO DAILY NS Paxil CR (paroxetine HCl) 50 mg (2 x 25 mg) PO DAILY NS [shower chair As directed] simethicone 180 mg PO BID 30 days [toilet arms As directed] [wipes As directed] [facility] Medical History (Updated 10/08/23 @ 08:04 by Eric Roldan MD) Colonic stricture Frequent falls Hx of flexible sigmoidoscopy Elevated platelet count Colonic stricture Breast CA Prolapse of intestine Rectal prolapse Invasive lobular carcinoma of breast in female Asthma MDD (major depressive disorder) Surgical History History of gastric surgery History of lumpectomy of right breast History of open sigmoidectomy Family History Father Family history unknown Mother Breast cancer Brother No problems noted. Sister History of leukemia Social History Household Members: None Housing: Apartment Are you a primary adult care manager to a significant other at home: No Do you presently have visiting nurse or other home services: Yes Alcohol intake: former Patient Tobacco Use Status: Never used Tobacco e-Cigarette/Vaping Use: Never Used Second Hand Smoke Exposure: No Advance Directives Date on File: 09/01/21 service: No Current occupational status: retired Cognitive needs: Yes (walker) Hearing needs: No Vision needs: Yes (reading glasses) Physical Exam Vital Signs: BMI result Body Mass Index 23.6 Const Other: Well-nourished well-developed very friendly female awake alert and oriented x3 in no acute distress Extrem Other: Bilateral upper extremity examination shows good capillary refill, no skin lesions noted, normal sensation light touch Bilateral shoulder examination shows forward flexion to 140 degrees, positive impingement signs, 3/5 strength with supraspinatus testing, no instability Office Procedures Joint Injection/Aspiration Joint Injection/Aspiration Primary Site: left shoulder Prep: site was prepped using aseptic technique Injected: 40 mg of, DepoMedrol and 1% plain lidocaine Procedure: The patient tolerated the procedure well Coding 85634 - Large joint Procedure code (CPT) selection complete Joint Injection/Aspiration Joint Injection/Aspiration Primary Site: right shoulder Prep: site was prepped using aseptic technique Injected: 40 mg of, DepoMedrol and 1% plain lidocaine Procedure: The patient tolerated the procedure well Coding 77881 - Large joint Procedure code (CPT) selection complete Results Reviewed Results Reviewed: X-rays of the patient's bilateral shoulder show high-riding humeral head as well as moderate glenohumeral joint degenerative changes consistent with chronic rotator cuff tear arthropathy Assessment & Plan Assessment & Plan (1) Impingement syndrome of left shoulder: Code(s): M75.42 - Impingement syndrome of left shoulder Category: Medical (2) Impingement of right shoulder: Code(s): M25.811 - Other specified joint disorders, right shoulder Category: Medical (3) Bilateral shoulder pain: Code(s): M25.511 - Pain in right shoulder; M25.512 - Pain in left shoulder Plan Ms. Lepe presents with bilateral shoulder pains and weakness due to chronic rotator cuff tear arthropathy. The risks and benefits of bilateral shoulder cortisone injections were discussed at length with the patient. The patient wished to proceed. She tolerated the injections well. She will continue with her home exercise program. She will follow up with me on an as-needed basis should her symptoms not plateau at an unacceptable level over the next few months. Feel free to call me at any time should questions regarding her orthopedic management arise. I spent 21 minutes in reviewing the patient's records and imaging studies, seeing the patient and documenting in the medical record. Orders: Orders XR shoulder RT min 2V 10/07/23 M25.511 - Pain in right shoulder AMB Joint Injection/Aspiration 10/07/23 M25.811 - Other specified joint disorders, right shoulder XR shoulder LT min 2V 10/07/23 M25.512 - Pain in left shoulder AMB Joint Injection/Aspiration 10/07/23 M75.42 - Impingement syndrome of left shoulder Coding Level of Care Code Est Pt Level 3 (04471) Complex EM visit Add On G2211 Diagnoses Impingement syndrome of left shoulder M75.42 Impingement of right shoulder M25.811 Bilateral shoulder pain M25.511; M25.512 CPT Codes Coding - 36615 Large joint: 73766 - Large joint ([id number]) Coding - 49422 Large joint: 43551 - Large joint ([id number])
== END 2023-10-07 15:01 | disposition home or self-care (01) ==
PROVIDERS: PCP Physician Assistant; Visit Provider Orthopaedic Surgery
DX: M75.42 Impingement syndrome of left shoulder (principal); M25.811 Other specified joint disorders, right shoulder; M25.511 Pain in right shoulder; M25.512 Pain in left shoulder
CPT/HCPCS: 20610; 99213

== ENCOUNTER 2023-10-15 09:36 | Outpatient (AMB) | payer OTHER, SELFPAY ==
--- NOTE | 2023-10-15 09:43 | A.OFFVIS_ITS ---
Vital Signs 10/15/23 09:48 Height 5 ft 5 in Weight 141 lb 1.533 oz BMI 23.5 Pulse 82 Intake Visit Reasons: 6 month follow up breast exam Intake Note: Patient is seen in office for 6 month follow up visit, breast exam. Patient c/o; no concerns regarding the breast mm: 03/05/23 Cable Installation Technician Required: No Community Arts Centre Manager: Community Arts Centre Manager Present Accompanied by: Self / Same As Patient Allergies No Known Allergies [No Known Allergies*] Allergy (Verified 10/15/23 09:49) Medication List - Last Reconciled 10/15/23 by Manuel Jose MD acetaminophen ER 650 mg PO Q12H 30 days albuterol sulfate 2.5 mg inhalation Q4H PRN amlodipine (Norvasc) 5 mg PO DAILY anastrozole (Arimidex) 1 tab PO DAILY cyanocobalamin (vitamin B-12) (Vitamin B-12) 1,000 mcg PO DAILY docusate sodium (Colace) 100 mg PO BID 30 days ferrous sulfate (iron) 325 mg PO BID fluticasone propion-salmeterol 100-50 mcg/dose (Wixela Inhub) 1 inh inhalation BID 30 days gabapentin 900 mg (3 x 300 mg) PO TID ibuprofen 800 mg PO Q12H PRN 30 days [kotex pads As directed] lisinopril 20 mg PO DAILY 90 days montelukast 10 mg PO BEDTIME 90 days omeprazole 20 mg PO DAILY 30 days ondansetron 1 tab PO Q6H PRN paroxetine HCl ER 12.5 mg PO DAILY Paxil CR (paroxetine HCl) 12.5 mg PO DAILY NS Paxil CR (paroxetine HCl) 50 mg (2 x 25 mg) PO DAILY NS [shower chair As directed] simethicone 180 mg PO BID 30 days [toilet arms As directed] [wipes As directed] HPI Comments Details: 68-year-old female patient former patient of Dr. Wu, presenting for breast cancer follow-up examination.? She was noted to have an area of architectural distortion in the 9 o'clock position of the right breast, evaluated by mammogram on February 2019 confirmed by ultrasound as an ill-defined hypoechoic area in the 10 o'clock position, 7 cm from the nipple.? An ultrasound-guided core biopsy revealed invasive ductal carcinoma grade 2 ER/NM positive, HER2 Jon negative.? She underwent lumpectomy with sentinel node biopsy on 03/16/2019.? Pathology revealed a 0.9 cm invasive lobular carcinoma, grade 2 with negative margins.? Two sentinel nodes were negative for carcinoma.? She underwent radiation therapy which was completed in May 2019.? She was started on letrozole 2.5 mg daily.? This was subsequently switched to Arimidex 1 mg p.o. daily (Dr. Pinedo). She subsequent developed a rectal prolapse recurrence and required a sigmoid resection with rectopexy.? Her most recent mammogram of 03/05/2023 revealed no mammographic evidence of malignancy (BI-RADS 2). She generally feels well and denies any new breast complaints. [facility] Medical History Colonic stricture Frequent falls Hx of flexible sigmoidoscopy Elevated platelet count Colonic stricture Breast CA Prolapse of intestine Rectal prolapse Invasive lobular carcinoma of breast in female Asthma MDD (major depressive disorder) Surgical History History of gastric surgery History of lumpectomy of right breast History of open sigmoidectomy Family History Father Family history unknown Mother Breast cancer Brother No problems noted. Sister History of leukemia Social History Household Members: None Housing: Apartment Are you a primary care clinician to a significant other at home: No Do you presently have visiting nurse or other home services: Yes Alcohol intake: former Patient Tobacco Use Status: Never used Tobacco e-Cigarette/Vaping Use: Never Used Second Hand Smoke Exposure: No Advance Directives Date on File: 09/01/21 service: No Current occupational status: retired Cognitive needs: Yes (walker) Hearing needs: No Vision needs: Yes (reading glasses) Review of Systems Const All systems reviewed & are unremarkable except as noted in HPI and below Denies chills, Denies fever(s) and Denies weight gain ENT Reports no additional complaints Card Reports no additional complaints Resp Reports no additional complaints GI Reports as per HPI Denies nipple discharge Skin/Breast Denies breast swelling, Denies breast skin changes, Denies breast pain, Denies breast mass, Denies change in breast shape, Denies change in pigmentation, Denies new lesions and Denies nipple discharge Mir/Lymph Denies lymphadenopathy Physical Exam Vital Signs: Last Vital Signs Pulse 82 10/15/23 09:48 BMI result Body Mass Index 23.5 Const General: cooperative, comfortable and no acute distress HEENT Head: Yes normocephalic and Yes atraumatic Ears: hearing grossly normal bilaterally Chest Other: Left breast: No skin change, no nipple retraction, no nipple discharge, no palpable mass, no enlarged lymph nodes. Right breast: No skin change, no nipple retraction, no nipple discharge, no palpable mass, no enlarged lymph nodes Resp Effort & Inspection: normal respiratory effort GI Inspection: Yes normal to inspection Palpation (GI): Soft to palpation, nontender, no guarding and not rigid Rectal Exam - Female: No deferred Skin General skin exam: no rashes or lesions noted Extrem General: Yes no clubbing, cyanosis or edema Assessment & Plan Assessment & Plan (1) Invasive lobular carcinoma of breast in female: Comment: right Code(s): C50.919 - Malignant neoplasm of unspecified site of unspecified female breast Category: Medical Plan 68-year-old female patient with previous history of right breast lumpectomy and sentinel node biopsy for infiltrating ductal carcinoma on 03/16/2019. She feels well and denies any new breast problems. Breast examination today reveals no suspicious findings in either breast. Her latest mammogram performed on 03/05/2023 revealed no mammographic evidence of malignancy in either breast (BI- RADS 2). I recommended follow-up examination in 6 months, sooner p.r.n.. Coding Level of Care Code Est Pt Level 3 (98444) Diagnoses Invasive lobular carcinoma of breast in female C50.919
[2023-10-15 09:48] VITALS: PULSE 82; BMI 23.5
== END 2023-10-15 10:14 | disposition home or self-care (01) ==
PROVIDERS: PCP Physician Assistant; Visit Provider Surgery
DX: C50.919 Malignant neoplasm of unspecified site of unspecified female breast (principal)
CPT/HCPCS: 99213

== ENCOUNTER → 2023-10-15 09:36 | Outpatient (BNVA) | payer OTHER, SELFPAY | PROVIDERS: PCP Physician Assistant; Visit Provider Surgery | DX: C50.911 Malignant neoplasm of unspecified site of right female breast (principal) | CPT/HCPCS: 99212 ==

== ENCOUNTER 2023-12-22 09:18 | Outpatient (AMB) | payer OTHER, SELFPAY ==
--- NOTE | 2023-12-22 09:20 | A.OFFVIS_ITS ---
Intake Visit Reasons: Right knee pain Intake Note: Nayla is a 68 year old female who presents with complaints of progressively worsening right knee pain. She describes her pain as sharp in nature. Her pain has gotten worse over the last few months in spite of continued non operative treatments. She has tried Tylenol and anti-inflammatory medicines which gave her minimal relief. She has also done physical therapy exercises which aggravated her pain. She wishes to hold off on surgery if at all possible. Allergies No Known Allergies [No Known Allergies*] Allergy (Verified 12/22/23 09:20) Medication List - Last Reconciled 12/22/23 by Eric Roldan MD acetaminophen ER 650 mg PO Q12H 30 days albuterol sulfate 2.5 mg inhalation Q4H PRN amlodipine (Norvasc) 5 mg PO DAILY anastrozole (Arimidex) 1 tab PO DAILY cyanocobalamin (vitamin B-12) (Vitamin B-12) 1,000 mcg PO DAILY docusate sodium (Colace) 100 mg PO BID 30 days fluticasone propion-salmeterol 100-50 mcg/dose (Wixela Inhub) 1 inh inhalation BID 30 days gabapentin 900 mg (3 x 300 mg) PO TID ibuprofen 800 mg PO Q12H PRN 30 days [kotex pads As directed] lisinopril 20 mg PO DAILY 90 days montelukast 10 mg PO BEDTIME 90 days omeprazole 20 mg PO DAILY 30 days ondansetron 1 tab PO Q6H PRN paroxetine HCl ER 12.5 mg PO DAILY Paxil CR (paroxetine HCl) 50 mg (2 x 25 mg) PO DAILY NS Paxil CR (paroxetine HCl) 12.5 mg PO DAILY NS [shower chair As directed] simethicone 180 mg PO BID 30 days [toilet arms As directed] [wipes As directed] [facility] Medical History Colonic stricture Frequent falls Hx of flexible sigmoidoscopy Elevated platelet count Colonic stricture Breast CA Prolapse of intestine Rectal prolapse Invasive lobular carcinoma of breast in female Asthma MDD (major depressive disorder) Surgical History History of gastric surgery History of lumpectomy of right breast History of open sigmoidectomy Family History Father Family history unknown Mother Breast cancer Brother No problems noted. Sister History of leukemia Social History Household Members: None Housing: Apartment Are you a primary day care supervisor to a significant other at home: No Do you presently have visiting nurse or other home services: Yes Alcohol intake: former Patient Tobacco Use Status: Never used Tobacco e-Cigarette/Vaping Use: Never Used Second Hand Smoke Exposure: No Advance Directives Date on File: 09/01/21 service: No Current occupational status: retired Cognitive needs: Yes (walker) Hearing needs: No Vision needs: Yes (reading glasses) Physical Exam Const Other: Well-nourished well-developed very friendly female awake alert and oriented x3 in no acute distress Extrem Other: Right knee examination shows a minimal effusion, palpable crepitus with range of motion, pain with range of motion, range of motion from -3 degrees to 115 degrees, no instability Office Procedures AMB Joint Injection/Aspiration Joint Injection/Aspiration Primary Site: right knee Prep: site was prepped using aseptic technique Injected: 40 mg of, DepoMedrol and 1% plain lidocaine Procedure: The patient tolerated the procedure well Coding 71056 - Large joint Procedure code (CPT) selection complete Results Reviewed Results Reviewed: X-rays of the patient's right knee taken previously show joint space narrowing, subchondral sclerosis, no acute bony abnormalities Assessment & Plan Assessment & Plan (1) Arthritis of right knee: Code(s): M17.11 - Unilateral primary osteoarthritis, right knee Category: Medical (2) Right knee pain: Code(s): M25.561 - Pain in right knee Category: Medical Plan Ms. Lepe presents with right knee pain due to degenerative joint disease. I had a lengthy discussion with the patient regarding the treatment options. The risks and benefits of a right knee cortisone injection were discussed at length with the patient. The patient wished to proceed. She tolerated the injection well. She will continue with her home exercise program. She will contact me prior to her follow-up appointment in 3 months should any questions or concerns arise. Feel free to call me at any time should questions regarding her orthopedic management arise. I spent 21 minutes in reviewing the patient's records and imaging studies, seeing the patient and documenting in the medical record. Orders: Orders AMB Joint Injection/Aspiration Today M17.11 - Unilateral primary osteoarthritis, right knee Coding Level of Care Code Est Pt Level 3 (48417) Complex EM visit Add On G2211 Diagnoses Arthritis of right knee M17.11 Right knee pain M25.561 CPT Codes Coding - 88438 Large joint: 45806 - Large joint ([id number])
== END 2023-12-22 09:53 | disposition home or self-care (01) ==
PROVIDERS: PCP Physician Assistant; Visit Provider Orthopaedic Surgery
DX: M17.11 Unilateral primary osteoarthritis, right knee (principal)
CPT/HCPCS: 20610; 99213

== ENCOUNTER → 2023-12-22 09:18 | Outpatient (BNVA) | payer OTHER, SELFPAY | PROVIDERS: PCP Physician Assistant; Visit Provider Orthopaedic Surgery | DX: M17.11 Unilateral primary osteoarthritis, right knee (principal); M25.561 Pain in right knee | CPT/HCPCS: 20610; 99212; J1010; J2003 ==

== ENCOUNTER 2024-01-11 08:39 | Outpatient (AMB) | payer OTHER, SELFPAY ==
[2024-01-11 08:41] VITALS: BMI 23.5
--- NOTE | 2024-01-11 08:41 | MHC.OFFVIS ---
Vital Signs 01/11/24 08:41 Height 5 ft 5 in Weight 141 lb 1 oz BMI 23.5 Intake Visit Reasons: OV-bilateral shoulder pain-Follow up Intake Note: Nayla is a 68 year old female who presents with complaints of progressively worsening bilateral shoulder pains. She describes her pains as sharp in nature. She has had cortisone injections in the past which gave her fairly good relief. She has also tried Tylenol and anti-inflammatory medicines which gave her minimal relief. She wishes to hold off on surgery if at all possible. She has done physical therapy exercises which aggravated her pain. Allergies No Known Allergies [No Known Allergies*] Allergy (Verified 01/11/24 08:42) Medication List - Last Reconciled 01/11/24 by Eric Roldan MD acetaminophen ER 650 mg PO Q12H 30 days albuterol sulfate 2.5 mg inhalation Q4H PRN amlodipine (Norvasc) 5 mg PO DAILY anastrozole (Arimidex) 1 tab PO DAILY cyanocobalamin (vitamin B-12) (Vitamin B-12) 1,000 mcg PO DAILY docusate sodium (Colace) 100 mg PO BID 30 days fluticasone propion-salmeterol 100-50 mcg/dose (Wixela Inhub) 1 inh inhalation BID 30 days gabapentin 900 mg (3 x 300 mg) PO TID ibuprofen 800 mg PO Q12H PRN 30 days [kotex pads As directed] lisinopril 20 mg PO DAILY 90 days montelukast 10 mg PO BEDTIME 90 days omeprazole 20 mg PO DAILY 30 days ondansetron 1 tab PO Q6H PRN paroxetine HCl ER 12.5 mg PO DAILY Paxil CR (paroxetine HCl) 50 mg (2 x 25 mg) PO DAILY NS Paxil CR (paroxetine HCl) 12.5 mg PO DAILY NS [shower chair As directed] simethicone 180 mg PO BID 30 days [toilet arms As directed] [wipes As directed] PFSH Medical History Colonic stricture Frequent falls Hx of flexible sigmoidoscopy Elevated platelet count Colonic stricture Breast CA Prolapse of intestine Rectal prolapse Invasive lobular carcinoma of breast in female Asthma MDD (major depressive disorder) Surgical History History of gastric surgery History of lumpectomy of right breast History of open sigmoidectomy Family History Father Family history unknown Mother Breast cancer Brother No problems noted. Sister History of leukemia Social History Household Members: None Housing: Apartment Are you a primary healthcare business analyst to a significant other at home: No Do you presently have visiting nurse or other home services: Yes Alcohol intake: former Patient Tobacco Use Status: Never used Tobacco e-Cigarette/Vaping Use: Never Used Second Hand Smoke Exposure: No Advance Directives Date on File: 09/01/21 service: No Current occupational status: retired Cognitive needs: Yes (walker) Hearing needs: No Vision needs: Yes (reading glasses) Physical Exam Vital Signs: BMI result Body Mass Index 23.5 Const Other: Well-nourished well-developed very friendly female awake alert and oriented x3 in no acute distress Extrem Other: Bilateral upper extremity examination shows good capillary refill, no skin lesions noted, normal sensation light touch Bilateral shoulder examination shows 3/5 strength with supraspinatus testing, positive impingement signs, no instability Office Procedures AMB Joint Injection/Aspiration Joint Injection/Aspiration Primary Site: left shoulder Prep: site was prepped using aseptic technique Injected: 40 mg of, DepoMedrol and 1% plain lidocaine Procedure: The patient tolerated the procedure well Coding 82403 - Large joint Procedure code (CPT) selection complete AMB Joint Injection/Aspiration Joint Injection/Aspiration Primary Site: right shoulder Prep: site was prepped using aseptic technique Injected: 40 mg of, DepoMedrol and 1% plain lidocaine Procedure: The patient tolerated the procedure well Coding 65249 - Large joint Procedure code (CPT) selection complete Assessment & Plan Assessment & Plan (1) Impingement syndrome of left shoulder: Code(s): M75.42 - Impingement syndrome of left shoulder Category: Medical (2) Impingement of right shoulder: Code(s): M25.811 - Other specified joint disorders, right shoulder Category: Medical Plan Ms. Lepe presents with bilateral shoulder pains due to impingement syndrome and chronic rotator cuff tearing. I had a lengthy discussion with the patient regarding the treatment options. The patient wishes to hold off on surgery for as long as possible. I agree with this plan. The risks and benefits of bilateral shoulder cortisone injections were discussed at length with the patient. The patient wished to proceed. She tolerated the injections well. She will continue with her home stretching program. She will contact me prior to her follow-up appointment in 3 months should any questions or concerns arise. Feel free to call me at any time should questions regarding her orthopedic management arise. I spent 20 minutes in reviewing the patient's records and imaging studies, seeing the patient and documenting in the medical record. Orders: Orders AMB Joint Injection/Aspiration Today M25.811 - Other specified joint disorders, right shoulder AMB Joint Injection/Aspiration Today M75.42 - Impingement syndrome of left shoulder Coding Level of Care Code Est Pt Level 3 (56361) Complex EM visit Add On G2211 Diagnoses Impingement syndrome of left shoulder M75.42 Impingement of right shoulder M25.811 CPT Codes Coding - 30382 Large joint: 90038 - Large joint ([id number]) Coding - 61848 Large joint: 71922 - Large joint ([id number])
== END 2024-01-11 09:15 | disposition home or self-care (01) ==
PROVIDERS: PCP Physician Assistant; Visit Provider Orthopaedic Surgery
DX: M75.42 Impingement syndrome of left shoulder (principal); M25.811 Other specified joint disorders, right shoulder
CPT/HCPCS: 20610; 99213

== ENCOUNTER → 2024-01-11 08:39 | Outpatient (BNVA) | payer OTHER, SELFPAY | PROVIDERS: PCP Physician Assistant; Visit Provider Orthopaedic Surgery | DX: M75.42 Impingement syndrome of left shoulder (principal); M25.811 Other specified joint disorders, right shoulder; M25.512 Pain in left shoulder; M25.511 Pain in right shoulder | CPT/HCPCS: 20610; 99212; J1010; J2003 ==

== ENCOUNTER 2024-02-03 09:20 | Outpatient (AMB) | payer OTHER, SELFPAY ==
--- NOTE | 2024-02-03 09:21 | A.OFFPC_ITS ---
Vital Signs 02/03/24 09:31 02/03/24 09:49 Height 5 ft 5 in Weight 146 lb 8 oz BMI 24.4 BP 140/90 H 130/80 Blood Pressure Location Lt brachial Position Sitting Pulse 80 Pulse Source Pulse Oximeter Pulse Oximetry (%) 97 Oxygen Delivery Method Room Air Intake Visit Reasons: 4 Mo F/U Rehab Technician Required: No Accompanied by: Self / Same As Patient Allergies No Known Allergies [No Known Allergies*] Allergy (Verified 02/03/24 09:35) Medication List - Last Reconciled 02/03/24 by Polo Nascimento PA-C acetaminophen ER 650 mg PO Q12H 30 days albuterol sulfate 2.5 mg inhalation Q4H PRN amlodipine (Norvasc) 5 mg PO DAILY anastrozole (Arimidex) 1 tab PO DAILY cyanocobalamin (vitamin B-12) (Vitamin B-12) 1,000 mcg PO DAILY docusate sodium (Colace) 100 mg PO BID 30 days fluticasone propion-salmeterol 100-50 mcg/dose (Wixela Inhub) 1 inh inhalation BID 30 days gabapentin 900 mg (3 x 300 mg) PO TID ibuprofen 800 mg PO Q12H PRN 30 days [kotex pads As directed] lisinopril 20 mg PO DAILY 90 days montelukast 10 mg PO BEDTIME 90 days omeprazole 20 mg PO DAILY 30 days ondansetron 1 tab PO Q6H PRN paroxetine HCl ER 12.5 mg PO DAILY Paxil CR (paroxetine HCl) 50 mg (2 x 25 mg) PO DAILY NS Paxil CR (paroxetine HCl) 12.5 mg PO DAILY NS [shower chair As directed] simethicone 180 mg PO BID 30 days [toilet arms As directed] [wipes As directed] Tobacco use date assessed: 03/17/23 Fall risk assessment: No Falls in past year Last assessed Fall Risk: 02/03/24 Dental Screening Dental Screen Date: 03/17/23 HPI 4 Mo F/U HPI Details Patient is a 68-year-old female here today follow-up visit ? patient has a past medical history significant for cerebral palsy, invasive ductal carcinoma of the breast, hypertension. Polyarthralgia: Has seen Orthopedics for her shoulder pain and received inj ections. Patient's bilateral knee pain has been much improved since she has lost weight. She has been using ibuprofen judiciously as she does note she has history of GI bleed. Patient does understand the risk of GI bleed and is willing to take the risk to help reduce her pain thus resulting in falls. CHRONIC MEDICAL CONDITIONS--> Breast cancer:? 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 She is status post lobectomy for breast cancer, she is due for repeat imaging in February 2021.? She continues on anti hormonal therapy (arimidex) without side effect. Cerebral palsy:? Continues to be very active, lately has been having more recurrent falls due to balance issues in her leg. She reports her right knee has been giving out has reestablish care with a new orthopedics and is requesting a cortisone injection. She is interested in having home physical therapy to help her with balance and lower extremity strengthening. Now currently not driving .. Hypertension:? Blood pressure slightly elevated today in office, attributes this to some of her pain in holiday eating indiscretions.? Will continue current doses of blood pressure medication.? Denies any headache, chest discomfort, shortness of breath.? . Depression: Has been very well controlled with current dose of Paxil. .. Asthma: Has been well controlled with p.r.n. use of her albuterol inhaler and daily use of her Wixela maintenance inhaler. She is interested in restarting Singulair at night to help her breathe while lying down [facility] Medical History Colonic stricture Frequent falls Hx of flexible sigmoidoscopy Elevated platelet count Colonic stricture Breast CA Prolapse of intestine Rectal prolapse Invasive lobular carcinoma of breast in female Asthma MDD (major depressive disorder) Surgical History History of gastric surgery History of lumpectomy of right breast History of open sigmoidectomy Family History Father Family history unknown Mother Breast cancer Brother No problems noted. Sister History of leukemia Social History Household Members: None Housing: Apartment Are you a primary day care home mother to a significant other at home: No Do you presently have visiting nurse or other home services: Yes Alcohol intake: former Patient Tobacco Use Status: Never used Tobacco e-Cigarette/Vaping Use: Never Used Second Hand Smoke Exposure: No Advance Directives Date on File: 09/01/21 service: No Current occupational status: retired Cognitive needs: Yes (walker) Hearing needs: No Vision needs: Yes (reading glasses) Questionnaire PHQ-9 Over the last 2 weeks, how often have you been bothered by any of the following problems? 1. Little interest or pleasure in doing things: not at all 2. Feeling down, depressed, or hopeless: not at all 3. Trouble falling or staying asleep, or sleeping too much: not at all 4. Feeling tired or having little energy: not at all 5. Poor appetite or overeating: not at all 6. Feeling bad about yourself - or that you are a failure or have let yourself or your family down: not at all 7. Trouble concentrating on things, such as reading the newspaper or watching television: not at all 8. Moving or speaking so slowly that other people could have noticed. Or the opposite - being so fidgety or restless that you have been moving around a lot more than usual: not at all 9. Thoughts that you would be better off or of hurting yourself in some way: not at all Total score: 0 Depression Screening Interpretation: Negative Depression Screening Done: Yes 19674 - PHQ-9 Billing: Yes Source: Developed by Drs. Tin Arriaga, Sia Raymundo, Ean Miles and colleagues, with an educational bernarda from [employer]. Thrive Questionnaire Date Thrive assessed: 03/17/23 BRITNEY-7 AMB Questionnaire BRITNEY-7 Date BRITNEY - 7 assessed: 03/17/23 Source: Developed by Drs. Tin Arriaga, Sia Raymundo, Ean Miles and colleagues, with an educational bernarda from [employer]. Review of Systems Const Denies headache(s) Eyes Denies loss of vision ENT Denies vertigo, Denies dizziness, Denies headache(s) and Denies sore throat Card Denies chest pain, Denies leg edema and Denies lightheadedness Resp Denies cough, Denies hemoptysis and Denies wheezing GI Denies abdominal pain, Denies melena, Denies constipation, Denies diarrhea and Denies vomiting Denies urinary frequency, Denies dysuria and Denies urinary urgency Musc Denies arthralgias, Denies joint swelling, Denies numbness and Denies tingling Neuro Denies Abnormal speech present, Denies behavioral changes, Denies vertigo, Denies dizziness, Denies headache(s), Denies loss of vision, Denies memory loss, Denies numbness and Denies tingling Psych Denies anxiety, Denies behavioral changes, Denies depression, Denies memory loss and Denies panic attacks Mir/Lymph Denies easy bleeding and Denies easy bruising Aller/Immun Denies wheezing Physical exam (Primary Care) Vital Signs: Last Vital Signs Pulse 80 02/03/24 09:31 BP 140/90 H 02/03/24 09:31 Pulse Ox 97 02/03/24 09:31 Oxygen Delivery Method Room Air 02/03/24 09:31 BMI result Body Mass Index 24.4 Tobacco/Smoking Status: Tobacco use Status Tobacco use date assessed 03/17/23 02/03/24 09:22 Patient Tobacco Use Status Never used Tobacco 02/03/24 09:22 e-Cigarette/Vaping Use Never Used 02/03/24 09:22 PHQ-9: PHQ-9 Score PHQ-9: Total score 0 02/03/24 09:32 Depression Screening Interpretation: Negative Thrive Assessment: Date of Thrive Assessment Date Thrive assessed 03/17/23 02/03/24 09:22 Const General: healthy appearing, no acute distress, alert and awake Nutritional Appearance: well nourished Orientation/consciousness: oriented to person, oriented to place and oriented to time HENMT Ears: TM's normal bilaterally General nose exam: Normal nasal mucous membranes and turbinates present Eyes Conjunctivae: conjunctivae normal Sclerae: sclerae normal Pupils: Equal, round and reactive pupils present Neck Neck: Yes no lymphadenopathy and Yes no JVD Thyroid: Thyroid normal Carotids: no bruits Resp Effort & Inspection: normal respiratory effort and not tachypneic Auscultation: no crackles, no rales, no rhonchi and no wheezes Cardio Rate: regular rate Rhythm: regular rhythm Heart sounds: no murmurs and normal S1 and S2 GI Palpation (GI): Soft to palpation, nontender, no hepatomegaly and no splenomegaly Auscultation: normal bowel sounds Skin General skin exam: no rashes or lesions noted and dry skin Neuro General: oriented to person, oriented to place and oriented to time Cranial nerves: Yes Equal, round and reactive pupils present Speech: No Abnormal speech present Gait exam (Neuro): Normal gait present Motor exam (neuro): no tremor noted Extrem Right upper extremity: full ROM Left upper extremity: full ROM Right lower extremity: full ROM; no edema Left lower extremity: full ROM; no edema Psych Mental Status: mental status grossly normal Speech and movement: Normal speech and movement present Affect: normal affect Attitude: cooperative Thought process: Normal thought process present Coding Level of Care Code Est Pt Level 4 (37033) Diagnoses Impingement of right shoulder M25.811 Spastic cerebral palsy, 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 Anemia, unspecified type D64.9 Anemia type: unspecified type Primary hypertension I10 Hypertension type: primary hypertension Additional Codes PHQ-9 - 65408 - PHQ-9 Billing: Yes ([id number]) Assessment & Plan Assessment & Plan (1) Impingement of right shoulder: Code(s): M25.811 - Other specified joint disorders, right shoulder Category: Medical Plan: Followed by Orthopedics and has gotten cortisone injections and shoulders and knees which has been helpful. She considered surgery though due to her cerebral palsy and frequent falling she would likely not be a great candidate. (2) Spastic cerebral palsy, congenital: Code(s): G80.1 - Spastic diplegic cerebral palsy Category: Medical Plan: As per HPI patient continues to be as physically active as she can, continues with moderate arthritic pain to which he uses gabapentin, acetaminophen and ibuprofen for. (3) Anemia: Code(s): D64.9 - Anemia, unspecified Category: Medical Qualifiers: Anemia type: unspecified type Qualified Code(s): D64.9 - Anemia, unspecified Plan: Patient's anemia has resolved. Will continue to follow CBC as she does continue to use NSAID on a daily basis due to her moderate to severe arthritic pain. She denies any overt signs of bleeding (4) HTN (hypertension): Code(s): I10 - Essential (primary) hypertension Category: Medical Qualifiers: Hypertension type: primary hypertension Qualified Code(s): I10 - Essential (primary) hypertension Plan: Patient's blood pressure slightly elevated today in office. Could be related to her pain in the use of NSAIDs. Will continue her current dose of antihypertensive medication with goal blood pressure to remain below 140/90 Orders: Orders IRON PROFILE Today D50.9 - Iron deficiency anemia, unspecified, D64.9 - Anemia, unspecified Complete Blood Count no Diff Today D64.9 - Anemia, unspecified Comprehensive [place]. Panel Fast Today Z13.1 - Encounter for screening for diabetes mellitus
--- OUTSIDE RECORDS SUMMARY | 2024-02-03 09:23 | XMS_ITS ---
Author Name [facility] Organization Unknown History of Medication Use Medication Directions Dispensed Refills Start Date End Date [facility] paroxetine ER 12.5 mg tablet,extended release 24 hr TAKE ONE TABLET BY MOUTH EVERY DAY 07/24/2023 active Marcaine (PF) 0.5 % (5 mg/mL) injection solution Take 4 mL by injection route. 05/15/2023 active triamcinolone acetonide 40 mg/mL suspension for injection Take 40 mg by injection route. 05/15/2023 active IBU 600 mg tablet TAKE ONE TABLET BY MOUTH THREE TIMES A DAY NEEDED FOR PAIN 02/27/2023 active nitrofurantoin macrocrystal 100 mg capsule TAKE ONE CAPSULE BY MOUTH TWICE A DAY WITH FOOD FOR 5 DAYS 07/29/2022 completed gabapentin 300 mg capsule TAKE THREE CAPSULES BY MOUTH THREE TIMES A DAY 07/29/2022 active Mapap Arthritis Pain 650 mg tablet,extended release TAKE ONE TABLET BY MOUTH EVERY 12 HOURS 07/29/2022 completed lidocaine (PF) 10 mg/mL (1 %) injection solution Take 2 mL by injection route. 07/29/2022 active lidocaine (PF) 10 mg/mL (1 %) injection solution 01/23/2023 active amlodipine 5 mg tablet TAKE ONE TABLET BY MOUTH EVERY DAY 07/29/2022 active nitrofurantoin monohydrate/macrocry stals 100 mg capsule TAKE ONE CAPSULE BY MOUTH EVERY 12 HOURS FOR 5 DAYS, MUST ADMINISTER WITH MEAL/FOOD 07/29/2022 active Wixela Inhub 100 mcg-50 mcg/dose powder for inhalation INHALE ONE PUFF BY MOUTH TWICE A DAY 07/29/2022 active lisinopril 20 mg tablet TAKE ONE TABLET BY MOUTH EVERY DAY 07/29/2022 active ondansetron 4 mg disintegrating tablet DISSOLVE ONE TABLET BY MOUTH EVERY 6 TO 8 HOURS NEEDED FOR NAUSEA AND VOMITING. 07/29/2022 completed senna 8.6 mg tablet TAKE ONE TABLET BY MOUTH AT BEDTIME NEEDED FOR CONSTIPATION 07/29/2022 completed Kenalog 40 mg/mL suspension for injection 11/26/2022 active methocarbamol 750 mg tablet TAKE ONE TABLET BY MOUTH TWICE A DAY 07/29/2022 completed lisinopril 20 mg tablet TAKE ONE TABLET BY MOUTH EVERY DAY 07/29/2022 active anastrozole 1 mg tablet TAKE 1 TABLET BY MOUTH DAILY. 07/29/2022 active lidocaine (PF) 100 mg/5 mL (2 %) injection syringe 11/26/2022 active acetaminophen 500 mg tablet TAKE ONE TABLET BY MOUTH EVERY 4 TO 6 HOURS NEEDED FOR PAIN 07/29/2022 active Paxil CR 12.5 mg tablet,extended release TAKE 1 TABLET BY MOUTH DAILY. 07/29/2022 active montelukast 10 mg tablet TAKE ONE TABLET BY MOUTH EVERY EVENING 07/29/2022 active Vitamin B-12 1,000 mcg tablet TAKE ONE TABLET BY MOUTH EVERY DAY 07/29/2022 active Paxil CR 25 mg tablet,extended release TAKE 2 TABLETS 50 MG) BY MOUTH DAILY; TAKE WITH THE PAXIL 12.5MG). 07/29/2022 active omeprazole 20 mg capsule,delayed release TAKE 1 CAPSULE BY MOUTH DAILY. 07/29/2022 active lidocaine (PF) 100 mg/5 mL (2 %) injection syringe Take 2 mL by injection route. 11/26/2022 completed ibuprofen 800 mg tablet TAKE ONE TABLET BY MOUTH TWICE A DAY 07/29/2022 active ferrous sulfate 325 mg (65 mg iron) tablet TAKE ONE TABLET BY MOUTH TWICE A DAY 07/29/2022 active potassium chloride ER 20 mEq tablet,extended release TAKE ONE TABLET BY MOUTH EVERY DAY 07/29/2022 active docusate sodium 100 mg capsule TAKE ONE CAPSULE BY MOUTH TWICE A DAY 07/29/2022 active Kenalog 40 mg/mL suspension for injection Take 1 mL by injection route. 07/29/2022 active cephalexin 500 mg capsule TAKE ONE CAPSULE BY MOUTH FOUR TIMES A DAY FOR 7 DAYS 07/29/2022 completed Gas Relief Ultra Strength 180 mg capsule TAKE ONE CAPSULE BY MOUTH TWICE A DAY FOR ABDOMINAL DISTENSION. 07/29/2022 active polyethylene glycol 3350 17 gram/dose oral powder TAKE 17 GRAMS ORALLY DAILY (MIX IN WATER BRFORE TAKING). 07/29/2022 active IBU 800 mg tablet TAKE ONE TABLET BY MOUTH TWICE A DAY 02/27/2023 active Problems Problem Status Onset Date Problem Type Date of Resoluti on Source Osteoarthritis of right knee joint active 2022-08-03 ProblemAct [facility] Arthritis of joint of left shoulder region active 2022-04-28 ProblemAct [facility] Osteoarthritis of right glenohumeral joint active 2022-07-27 ProblemAct [facility] T Pain of right shoulder joint active 2022-10-20 ProblemAct [facility] Arthritis of joint of right shoulder region active 2022-04-28 ProblemAct [facility] Osteoarthritis of left glenohumeral joint active 2022-07-27 ProblemAct [facility] T Pain of left shoulder joint active 2022-10-20 ProblemAct [facility]
--- OUTSIDE RECORDS SUMMARY | 2024-02-03 09:23 | XMS_ITS | Data Portability ---
Author Organization [employer] [place] [facility] [employer] Address [address] [place] [address] Care Team Providers Care Ibm Bpm Architect Name Role Phone [facility] Referring Provider Assessment Encounter Date Assessment Date Assessment LastModified by Organization Details LastModified Time 03/17/2022 03/17/2022 As noted, we were called to see this patient regarding concerns of low back pain and muscle spasms after recent fall.. Evaluation in the field was performed by my vending machine repairer colleague, as noted above, I provided real-time direction and supervision for this visit. The evaluation revealed low back pain with radiation down left leg consistent with sciatica. . Impression: 66 YOF being seen for low back pain and muscle spasms after fall. Pt has had work up in ED with CT and X-ray imaging that was negative. Pt is looking for pain control. Pt on Motrin 800mg already. Neuro exam and trauma exam reassuring Plan: Pt prescribed robaxin for muscle relaxation and lidocaine patchs. Pt had PCP follow up Wednesday . Primary care, consider in office re-evaluation Disposition: We discussed the diagnostic uncertainty of home visits and the risk associated with this. In this case, the patient and I felt this to be an acceptable and reasonable amount of risk given the benefit of avoiding an ED visit. We discussed the need to seek care urgently/emerge ntly in the setting of any new or worsening serious symptoms, particularly increasing pain or development of weakness. [email or web address] Not available 03/17/2022 11:00:28 Plan of Treatment Reminders Order Date Submit Date Provider Last Modified By Organization Details Last Modified Time Details Appointments None recorded. Lab None recorded. Referral None recorded. Procedures None recorded. Surgeries None recorded. Imaging None recorded. Medication Orders Robaxin-75 0 750 mg tablet 2022 023 [facility] [place], [address], 3 10:40:44 lidocaine 5 % topical patch 2022 023 [facility], [address] [facility], [place], [address], 3 10:40:43 Patient TargetsNo targets recorded. Patient InstructionsNo instructions recorded. Reason for Referral None Reported. Medical Equipment None Reported. Medications Name Sig Start Date Stop Date Status Note LastModified by Organization Details LastModified Time anastrozole 1 mg tablet TAKE ONE TABLET BY MOUTH EVERY DAY active Not Available Not Available No t Available ibuprofen 800 mg tablet TAKE ONE TABLET BY MOUTH TWICE A DAY active Not Available Not Available No t Available senna 8.6 mg tablet TAKE ONE TABLET BY MOUTH AT BEDTIME NEEDED FOR CONSTIPATIO N active Not Available Not Available No t Available lisinopril 20 mg tablet TAKE 1 TABLET BY MOUTH DAILY. active Not Available Not Available No t Available amlodipine 5 mg tablet TAKE 1 TABLET BY MOUTH DAILY. active Not Available Not Available No t Available acetaminophe n 500 mg tablet TAKE ONE TABLET BY MOUTH EVERY 4 TO 6 HOURS NEEDED FOR PAIN active Not Available Not Available No t Available methocarbamo l 750 mg tablet TAKE ONE TABLET BY MOUTH TWICE A DAY active Not Available Not Available No t Available cephalexin 500 mg capsule TAKE ONE CAPSULE BY MOUTH FOUR TIMES A DAY FOR 7 DAYS active Not Available Not Available N ot Available ferrous sulfate 325 mg (65 mg iron) tablet TAKE ONE TABLET BY MOUTH TWICE A DAY active Not Available Not Available No t Available nitrofuranto in macrocrystal 100 mg capsule TAKE ONE CAPSULE BY MOUTH TWICE A DAY WITH FOOD FOR 5 DAYS active Not Available Not Available No t Available lisinopril 10 mg tablet TAKE ONE TABLET BY MOUTH EVERY DAY active Not Available Not Available No t Available lidocaine 5 % topical patch APPLY 1 PATCH BY TOPICAL ROUTE ONCE DAILY (MAY WEAR UP TO 12HOURS.) 2022 active Not Available Not Available Not Avai lable docusate sodium 100 mg capsule TAKE ONE CAPSULE BY MOUTH TWICE A DAY active Not Available Not Available No t Available gabapentin 300 mg capsule TAKE THREE CAPSULES 900 MG) BY MOUTH THREE TIMES A DAY active Not Available Not Available Not Available omeprazole 20 mg capsule,silvana yed release TAKE 1 CAPSULE BY MOUTH DAILY active Not Available Not Available Not Available montelukast 10 mg tablet TAKE ONE TABLET BY MOUTH EVERY EVENING active Not Available Not Available No t Available polyethylene glycol 3350 17 gram/dose oral powder TAKE 17 GRAMS ORALLY DAILY (MIX IN WATER BRFORE TAKING). active Not Available Not Available No t Available ondansetron 4 mg disintegrati ng tablet DISSOLVE ONE TABLET BY MOUTH EVERY 6 TO 8 HOURS NEEDED FOR NAUSEA AND VOMITING. active Not Available Not Available No t Available Vitamin B-12 1,000 mcg tablet TAKE ONE TABLET BY MOUTH EVERY DAY active Not Available Not Available No t Available Paxil CR 12.5 mg tablet,exten ded release TAKE 1 TABLET BY MOUTH DAILY. active Not Available Not Available No t Available Paxil CR 25 mg tablet,exten ded release TAKE TWO TABLETS BY MOUTH EVERY DAY WITH PAXIL 12.5MG active Not Available Not Available No t Available Mapap Arthritis Pain 650 mg tablet,exten ded release TAKE ONE TABLET BY MOUTH EVERY 12 HOURS active Not Available Not Available No t Available potassium chloride ER 20 mEq tablet,exten ded release TAKE ONE TABLET BY MOUTH EVERY DAY active Not Available Not Available No t Available Wixela Inhub 100 mcg-50 mcg/dose powder for inhalation INHALE ONE PUFF BY MOUTH TWICE A DAY active Not Available Not Available No t Available Vitals Date Recorded Heart rate Respiratory rate Oxygen saturation Oxygen saturation in Arterial blood by Pulse oximetry Heart rate Oxygen saturation Oxygen saturation in Arterial blood by Pulse oximetry Respiratory rate Systolic blood pressure Diastolic blood pressure Systolic blood pressure Diastolic blood pressure Provider Name and Address Organization Details Last Updated DateTime 3 92 /min 16 /min 95 % 95 % 92 /min 95 % 95 % 16 /min 133 mm[Hg] 91 mm[Hg] 133 mm[Hg] 91 mm[Hg] Not Available [facility] - production 3 10:56:17 Social History None recorded. Functional Status None recorded. Mental Status None recorded. Family History Nothing Reported. Medical History No medical history recorded. Gynecological HistoryNo gynecological history recorded. Obstetrics History GPAL:G 0 P 0 0 0 0 Past Encounters Encounter ID Performer Location Encounter Start Date Encounter Closed Date Diagnosis/Indication Diagnosis SNOMED-CT Code Diagnosis ICD10 Code [id number] Asif Cloud MD [facility] [address] [place] [phone] [id number] 03/17/2022 10:37:40 03/19/2022 12:17:58 Low back pain 721556704 M54.50 Health Concerns Section Related Observation LastModified by Organization Detai ls LastModified Time None Recorded Concern Status LastModified by Organization Details LastModified Time None Recorded Advance Directives Directive None Recorded Payers Encounter Date Sequence Insurance Name Policy Number Policy Pineda Covered Member ID Pineda Member ID Guarantor Name 03/17/2022 1 [facility] - DOS PRIOR TO 2022 - DUAL ELIGIBLE (MEDICARE REPLACEMENT/ADV ANTAGE - HMO) Nayla Lepe [id number] Nayla Lepe Notes Date Note Type Note Provider Name and Address Organization Details Recorded Time 03/17/2022 text/html [facility] Nursing Assessment: Reason For Request: Pain Patient Reports: Weakness with fall, able to move all extremities Chief Complaints: Falls, Pain PMH: COPD/Asthma, Hypertension, Cancer Allergies: No Known Comments: Member requesting [facility] visit. Member is s/p fall 2 weeks ago, was seen in ED head ct (-) and all xrays (-). Member has been experiencing spasms to her lower back, has reached out to PCP, but they cannot see her until Wednesday. Per member spasms are severe and debilitating, she has tried IBU with hot/cold therapy with minimal effect. She would like to be evaluated and have possible pain control. ................... ................... ................... ................... ................... ................... ................... ........ Solutions Operator Note From Carie Hall: Dispatched to the above for the 66 y/o female back pain. Pt was A&O X4, skin pink / warm / dry, strong regular radial pulses, talking in full non - labored sentences, pt had a fall and was transported with MRI 2 weeks ago w/o findings, the pt has been having spam's since, pt took 800mg ibuprofen 800mg w/o relief and called for appointment, vitals listed above, pt having spasms in the center to left lower back / flank, no constant pain, pt ambulating wo issue, [facility] contacted and supportive care discussed and prescriptions call to pharmacy ................... ................... ................... ................... ................... ................... ................... ........ Disposition: Fulfilled Asif Cloud MD [address] [facility], [place], [address], [employer] 03/17/2022 11:01:25 OBGyn Episode No OBEpisode recorded.
--- OUTSIDE RECORDS SUMMARY | 2024-02-03 09:23 | XMS_ITS | Patient Health Record ---
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 [address] [place] [phone] [id number] YADIRA LAMBERT Self - patient is the insured
--- OUTSIDE RECORDS SUMMARY | 2024-02-03 09:23 | XMS_ITS | Data Portability ---
Author Organization [place] [facility] Nadeen Stoll AONE [place] Address [address] [facility] [address] [place] [address] Care Team Providers Care Escort Patients Name Role Phone JEANCARLOS KENNEDY Primary Care Provider JEANCARLOS KENNEDY Referring Provider [phone] JEANCARLOS KENNEDY Primary Care Provider Assessment Encounter Date Assessment Date Assessment LastModified by Organization Details LastModified Time 02/25/2023 02/25/2023 Pleasant 59-year-old female degenerative joint disease with arthralgia of the right knee. After discussion with the patient she opted for cortisone injection. After verbal consent was obtained. The procedure was carried on the right knee she tolerated this well aftercare instructions were discussed in detail. Follow-up visit 3 months time for repeat clinical exam at that time we will also obtain updated x-rays of both knees. She agrees with this. Patient was seen and evaluated by Lovely Coats PA-C in indirect conjuction with Documenting Provider: John Mckeon MD . He/She agrees with history, physical examination, tests/diagnostic imaging, and treatment plan. Additional treatment plan discussed with the patient (only initiated if in boldface font) otherwise not applicable. Treatment may include the following; - Provider focused nonsteroidal anti-inflammatory regimen (discussed were the pros, cons, benefits and risks as well as any black box warnings) in patients over 60 years old they should be very cautious in taking these medications due to potential decreased kidney function and or elevated blood pressure. - Analgesic pain medication for pain suppression (discussed were the pros, cons, benefits and risks as well as any black box warnings) - The use of topical pain relieving medication were discussed - The use of ice to decrease inflammation and pain - The use of assistive ambulatory devices for ambulation and fall prevention - Formal specific guided physical therapy program I reviewed my findings at length with the patient today. ??We discussed the nature and etiology of this problem along with current treatment options. We discussed the expected course and outcomes and what to expect. We also discussed risks and benefits. ?? All of their questions were answered today, and there was exhibited understanding and comprehension of all that was discussed. Time Spent: 10 minutes were spent reviewing previous imaging and charting. ??10 minutes were spent obtaining patient history. ??5 minutes were spent on physical exam. ??5??minutes were spent explaining diagnosis and assessment. Today's documentation was made using voice recognition software. This note may contain grammatical errors secondary to the software. Not available 02/25/2023 10:45:42 04/22/2023 04/22/2023 Pleasant 68-year-old female degenerative arthritis of the glenohumeral joints. She opted for cortisone injections at today's visit. After verbal consent was granted by the patient. The procedures were then carried out. She tolerated the procedures well. Aftercare instructions were discussed in detail. Follow-up visit 3 months time for repeat clinical exam. Should her symptoms not prove or worsen she should contact my office. Patient was seen and evaluated by Lovely Coats PA-C in indirect conjuction with Documenting Provider: Alex Borrego MD . He/She agrees with history, physical examination, tests/diagnostic imaging, and treatment plan. Additional treatment plan discussed with the patient (only initiated if in boldface font) otherwise not applicable. Treatment may include the following; - Provider focused nonsteroidal anti-inflammatory regimen (discussed were the pros, cons, benefits and risks as well as any black box warnings) in patients over 60 years old they should be very cautious in taking these medications due to potential decreased kidney function and or elevated blood pressure. - Analgesic pain medication for pain suppression (discussed were the pros, cons, benefits and risks as well as any black box warnings) - The use of topical pain relieving medication were discussed - The use of ice to decrease inflammation and pain - The use of assistive ambulatory devices for ambulation and fall prevention - Formal specific guided physical therapy program I reviewed my findings at length with the patient today. ??We discussed the nature and etiology of this problem along with current treatment options. We discussed the expected course and outcomes and what to expect. We also discussed risks and benefits. ?? All of their questions were answered today, and there was exhibited understanding and comprehension of all that was discussed. Time Spent: 10 minutes were spent reviewing previous imaging and charting. ??10 minutes were spent obtaining patient history. ??5 minutes were spent on physical exam. ??5??minutes were spent explaining diagnosis and assessment. Today's documentation was made using voice recognition software. This note may contain grammatical errors secondary to the software. Not available 04/22/2023 09:50:46 05/13/2023 05/13/2023 68-year-old female with right knee pain secondary to osteoarthritis. She wishes to proceed with cortisone injection. See the attached procedure note. Follow-up will be as needed. This patient was seen and evaluated by Lovely Newell MS, PAKwasi in indirect conjunction with documenting/super vising provider John Mckeon MD. He agrees with history, physical examination, tests/diagnostic imaging, and treatment plan. This document was generated using voice recognition software. As a result, there may be unintended spelling, grammatical and/or textual errors. Not available 05/13/2023 08:49:47 07/22/2023 07/22/2023 The above findings were discussed in detail today with the patient. They have evidence of bilateral shoulder glenohumeral joint arthritis. Pathology and expected prognosis were discussed with the patient today. Treatment options include conservative treatment, anti-inflammatori es, activity modification, a cortisone injection, or consideration for shoulder surgery. They would not like surgery at this point would like a steroid injection in both shoulders. Risk and benefits of steroid injection were discussed with the patient today, they understand these risks and would like to proceed. They tolerated the procedure well. I let them know it can take 2 days to 2 weeks start working after 6 weeks to take its full effect. They can take anti-inflammatori es, ice, and rest or do activity medication in the meantime to help with the pain. I will see them back for follow-up in 3 months for repeat evaluation. All of their questions were answered, they are in agreement with the plan. Not available 07/22/2023 11:14:04 08/20/2023 08/20/2023 68-year-old female with osteoarthritis of the right knee. At present moment, her symptoms are well-controlled following in May cortisone injection. She also had a recent fall with subsequent contusion to the right knee. There is no exam or radiographic evidence of fracture or dislocation. That is already starting to show signs of improvement. Follow-up will be necessary if and when she has a recurrence of her arthritis pain at the right knee. This patient was seen and evaluated by Lovely Newell MS, PAKwasi in indirect conjunction with documenting/super vising provider John Mckeon MD. He agrees with history, physical examination, tests/diagnostic imaging, and treatment plan. This document was generated using voice recognition software. As a result, there may be unintended spelling, grammatical and/or textual errors. Not available 08/20/2023 10:25:11 Plan of Treatment Reminders Order Date Submit Date Provider Last Modified By Organization Details Last Modified Time Details Appointments None recorded . Lab None recorded . Referral None recorded . Procedures None recorded . Surgeries None recorded . Imaging XR, shoulder , 2 or more view 2023 024 [facility], [address], [place], [address], 4 13:06:37 XR, shoulder , 2 or more view 2023 024 [facility], [address], [place], [address], 4 13:06:37 XR, knee, 4 or more view 2023 024 [email or web address] [facility], [address], [place], [address], 4 10:53:14 Medication Orders Kenalog 40 mg/mL suspensi on for injectio n 2023 024 [id number], [address] [place], [place], [id number], 4 10:13:59 lidocain e (PF) 10 mg/mL (1 %) injectio n solution [address] [id number], [address] [place], [place], [id number], 4 10:13:47 Kenalog 40 mg/mL suspensi on for injectio n [address] [facility] #39921, [address] [place], [place], [id number], 4 10:13:59 lidocain e (PF) 10 mg/mL (1 %) injectio n solution [address] [facility] #60441, [address] [place], [place], [id number], 4 10:13:47 Kenalog 40 mg/mL suspensi on for injectio n [address] [facility] #53926, [address] [place] [address], [id number], 4 10:13:59 lidocain e (PF) 10 mg/mL (1 %) injectio n solution [address] [facility] #50634, [address] [place], [place], [id number], 4 10:13:47 Marcaine (PF) 0.5 % (5 mg/mL) injectio n solution [address] [facility] #01758, [address] [place], [place], [id number], 4 10:13:53 lidocain e (PF) 100 mg/5 mL (2 %) injectio n syringe [address] [facility] #30411, [address] [place], [place], [id number], 4 10:13:50 triamcin olone acetonid e 40 mg/mL suspensi on for injectio n [address] [facility] #75511, [address] [place], [place], [id number], 4 10:13:59 lidocain e (PF) 10 mg/mL (1 %) injectio n solution [address] [facility] #06076, [address] [place], [place], [id number], 4 10:13:47 triamcin olone acetonid e 40 mg/mL suspensi on for injectio n [address] [facility]86706, [address] [place], [place], [id number], 4 10:13:59 Patient TargetsNo targets recorded. Patient Instructions Encounter Date Encounter Id Patient Instructions Last Modified By Organization Details Last Modified Time 02/25/2023 [id number] You have been provided with a cortisone injection in order to reduce the pain and inflammation that you are experiencing. The injection consists of two medications. Cortisone (an anti-inflammatory that will take 48-72 hours to take effect) and Lidocaine (a numbing agent that will last 2-3 hours). Please note that not everyone will have a lasting response following the injection. PATIENT INSTRUCTIONS Once the Lidocaine wears off, you may have an increase in your pain. I recommend icing the affected area for 20 minutes 3-4 times per day. It is recommended that you refrain from any high level activities using the joint or limb that was injected for approximately 24-48 hours. Normal day-to-day activities are generally not a problem. POSSIBLE SIDE EFFECTS Individuals with dark complexions may experience some skin discoloration locally at the site of the injection. There is the possibility of an increase in discomfort within 48 hours following the injection. This is called a ? flare? . To help minimize the chances of this, please see the post-injection instructions above. There is a less than 1% chance of an infection. If you notice any signs of infection (redness, warmth, drainage, fever greater than 100 degrees) please call our office or contact us through the portal [facility]. Not available 02/25/2023 10:45:46 04/22/2023 [id number] You have been provided with a cortisone injection in order to reduce the pain and inflammation that you are experiencing. The injection consists of two medications. Cortisone (an anti-inflammatory that will take 48-72 hours to take effect) and Lidocaine (a numbing agent that will last 2-3 hours). Please note that not everyone will have a lasting response following the injection. PATIENT INSTRUCTIONS Once the Lidocaine wears off, you may have an increase in your pain. I recommend icing the affected area for 20 minutes 3-4 times per day. It is recommended that you refrain from any high level activities using the joint or limb that was injected for approximately 24-48 hours. Normal day-to-day activities are generally not a problem. POSSIBLE SIDE EFFECTS Individuals with dark complexions may experience some skin discoloration locally at the site of the injection. There is the possibility of an increase in discomfort within 48 hours following the injection. This is called a ? flare? . To help minimize the chances of this, please see the post-injection instructions above. There is a less than 1% chance of an infection. If you notice any signs of infection (redness, warmth, drainage, fever greater than 100 degrees) please call our office or contact us through the portal [facility]. Not available 04/22/2023 09:49:35 07/22/2023 [id number] You have been provided with a cortisone injection in order to reduce the pain and inflammation that you are experiencing. The injection consists of two medications. Cortisone (an anti-inflammatory that will take 48-72 hours to take effect) and Lidocaine (a numbing agent that will last 2-3 hours). Please note that not everyone will have a lasting response following the injection. PATIENT INSTRUCTIONS Once the Lidocaine wears off, you may have an increase in your pain. I recommend icing the affected area for 20 minutes 3-4 times per day. It is recommended that you refrain from any high level activities using the joint or limb that was injected for approximately 24-48 hours. Normal day-to-day activities are generally not a problem. POSSIBLE SIDE EFFECTS Individuals with dark complexions may experience some skin discoloration locally at the site of the injection. There is the possibility of an increase in discomfort within 48 hours following the injection. This is called a ? flare? . To help minimize the chances of this, please see the post-injection instructions above. There is a less than 1% chance of an infection. If you notice any signs of infection (redness, warmth, drainage, fever greater than 100 degrees) please call our office or contact us through the portal [facility]. Not available 07/22/2023 11:13:45 4 views of bilat eral shoulders were ordered and reviewed today, this demonstrates severe glenohumeral joint arthritis with joint space narrowing, osteophyte formation, and subchondral sclerosis. There are degenerative changes at the greater tuberosity. There is maintained joint space between the humeral head and the acromion. There is mild AC joint arthritis. Demineralization of the bones. Not available 07/22/2023 11:13:41 08/20/2023 [id number] {{2 3 4 5 6 7* 8 9}} view X-ray study obtained during today's office encounter show evidence of {{mild moderate* sev ere}} {{right left bilater al*}} {{hip knee*}} osteoarthritis. There is joint space narrowing, subchondral sclerosis and marginal osteophytosis. Kellgren-Daniel grade {{0 1 2* 3 4}}. No evidence of acute fracture or osteolytic findings. From a trauma standpoint, there is no evidence of fracture or dislocation. Not available 08/20/2023 10:25:47 Reason for Referral None Reported. Problems Name Problem SNOMED Code Status Onset Date Resolution Date Notes Provider Name and Address Organization Details Recorded Time Osteoarthri tis of right glenohumera l joint 0418679512141 101 Active 2022 LOVELY COATS PA-C [address], [place], [address], [place] [facility] P 3 10:35:14 Osteoarthri tis of left glenohumera l joint 6611774000128 104 Active 2022 LOVELY COATS PA-C [address], [place], [address], [place] [facility], P 3 10:35:19 Osteoarthri tis of right knee joint 5570245707980 00 Active 2022 LOVELY COATS PA-C [address], [place], [address], [place] [facility], P 3 11:23:10 Pain of right shoulder joint 1057972585728 9100 Active 2022 LOVELY COATS PA-C [address], [place], [address], [place] [facility], P 3 07:50:39 Pain of left shoulder joint 9925143895988 9109 Active 2022 LOVELY COATS PA-C [address], [place], [address], [place] [facility], P 3 07:50:39 Arthritis of joint of right shoulder region 1618856401713 101 Active 2022 LOVELY COATS PA-C [address], [place], [address], [place] [facility], P 3 09:58:21 Arthritis of joint of left shoulder region 4875374786039 106 Active 2022 LOVELY COATS PA-C [address], [place], [address], [place] [facility], P 3 09:58:30 Problem Notes None recorded. Procedures Surgical History Date Name Laterality Status Provider Name and Address Organization Details Recorded Time 07/22/19 24 LES Shoulder Interarticular Inj completed Lachelle Park MD [address], [place], [address], [place] [facility], P 07/22/2023 11:12:25 05/13/19 24 MJG Knee injection w/US completed LOVELY NEWELL PA-C [address], [place], [address], [place] [facility], P 05/13/2023 08:49:56 04/22/19 24 Knee Joint/Bursa Asp & Inj completed LOVELY COATS PA-C [address], [place], [address], [place] [facility], P 04/22/2023 09:49:34 02/25/19 24 Knee Joint/Bursa Asp & Inj completed LOVELY COATS PA-C [address], [place], [address], [place] [facility], P 02/25/2023 10:44:49 01/22/20 23 Knee Joint/Bursa Asp & Inj completed LOVELY COATS PA-C [address], [place], [address], [place] [facility], P 01/21/2023 09:39:57 11/25/19 23 Knee Joint/Bursa Asp & Inj completed LOVELY COATS PA-C [address], [place], [address], [place] [facility], P 11/24/2022 10:01:30 10/21/19 23 Knee Joint/Bursa Asp & Inj completed LOVELY COATS PA-C [address], [place], [address], [place] [facility], P 10/20/2022 07:50:46 08/04/19 23 Knee Joint/Bursa Asp & Inj completed LOVELY COATS PA-C [address], [place], [address], [place] [facility], P 08/03/2022 07:56:34 07/28/19 23 Knee Joint/Bursa Asp & Inj completed LOVELY COATS PA-C [address] [facility],[address], [place], [address], [place] [facility], P 07/27/2022 07:52:16 04/29/19 23 Shoulder Joint/Bursa Asp & Inj completed LOVELY COATS PA-C [address] [facility], [place], [address], [place] [facility], P 04/28/2022 10:09:22 Imaging Results None recorded. Procedure Notes None recorded. Medical Equipment None Reported. Allergies No known drug allergies Medications Name Sig Start Date Stop Date Status Note LastModified by Organization Details LastModified Time anastrozole 1 mg tablet TAKE 1 TABLET BY MOUTH DAILY. active Not Available Not Available No t Available IBU 800 mg tablet TAKE ONE TABLET BY MOUTH EVERY 12 HOURS NEEDED FOR PAIN active Not Available Not Available No t Available simethicone 180 mg capsule TAKE ONE CAPSULE BY MOUTH TWICE A DAY FOR ABDOMINAL DISTENTIO N active Not Available Not Available No t Available senna 8.6 mg tablet TAKE ONE TABLET BY MOUTH AT BEDTIME NEEDED FOR CONSTIPAT ION 07/27 completed Not Available Not Available Not Available lisinopril 20 mg tablet TAKE ONE TABLET BY MOUTH EVERY DAY active Not Available Not Available No t Available amlodipine 5 mg tablet TAKE ONE TABLET BY MOUTH EVERY DAY active Not Available Not Available No t Available acetaminoph en 500 mg tablet TAKE ONE TABLET BY MOUTH EVERY 4 TO 6 HOURS NEEDED FOR PAIN active Not Available Not Available No t Available methocarbam ol 750 mg tablet TAKE ONE TABLET BY MOUTH TWICE A DAY 07/27 completed Not Available Not Available Not Available IBU 600 mg tablet TAKE ONE TABLET BY MOUTH THREE TIMES A DAY NEEDED FOR PAIN active Not Available Not Available No t Available triamcinolo ne acetonide 40 mg/mL suspension for injection Take 80 mg by injection route. 08/19 completed Not Available Not Available Not Available cephalexin 500 mg capsule TAKE ONE CAPSULE BY MOUTH FOUR TIMES A DAY FOR 7 DAYS 07/27 completed Not Available Not Available Not Available ferrous sulfate 325 mg (65 mg iron) tablet TAKE ONE TABLET BY MOUTH TWICE A DAY active Not Available Not Available No t Available nitrofurant oin macrocrysta l 100 mg capsule TAKE ONE CAPSULE BY MOUTH TWICE A DAY WITH FOOD FOR 5 DAYS 11/24 completed Not Available Not Available Not Available docusate sodium 100 mg capsule TAKE ONE CAPSULE BY MOUTH TWICE A DAY active Not Available Not Available No t Available gabapentin 300 mg capsule TAKE THREE CAPSULES BY MOUTH THREE TIMES A DAY active Not Available Not Available No t Available omeprazole 20 mg capsule,del ayed release TAKE ONE CAPSULE BY MOUTH EVERY DAY active Not Available Not Available No t Available montelukast 10 mg tablet TAKE ONE TABLET BY MOUTH AT BEDTIME. active Not Available Not Available No t Available fluticasone 100 mcg-salmete rol 50 mcg/dose blistr powdr for inhalation INHALE ONE PUFF BY MOUTH TWICE A DAY active Not Available Not Available No t Available polyethylen e glycol 3350 17 gram/dose oral powder TAKE 17 GRAMS ORALLY DAILY (MIX IN WATER BRFORE TAKING). active Not Available Not Available No t Available ondansetron 4 mg disintegrat ing tablet DISSOLVE ONE TABLET BY MOUTH EVERY 6 TO 8 HOURS NEEDED FOR NAUSEA AND VOMITING. 07/27 completed Not Available Not Available Not Available Vitamin B-12 1,000 mcg tablet TAKE ONE TABLET BY MOUTH EVERY DAY active Not Available Not Available No t Available paroxetine ER 12.5 mg tablet,exte nded release 24 hr TAKE ONE TABLET BY MOUTH EVERY DAY active Not Available Not Available No t Available Paxil CR 25 mg tablet,exte nded release TAKE TWO TABLETS BY MOUTH EVERY DAY ALONG WITH 12.5 MG active Not Available Not Available No t Available Mapap Arthritis Pain 650 mg tablet,exte nded release TAKE ONE TABLET BY MOUTH EVERY 12 HOURS 07/27 completed Not Available Not Available Not Available Marcaine (PF) 0.5 % (5 mg/mL) injection solution Take 4 mL by injection route. 08/19 completed Not Available Not Available Not Available nitrofurant oin monohydrate /macrocryst als 100 mg capsule TAKE ONE CAPSULE BY MOUTH EVERY 12 HOURS FOR 5 DAYS, MUST ADMINISTE R WITH MEAL/FOOD active Not Available Not Available No t Available lidocaine (PF) 10 mg/mL (1 %) injection solution Take 4 mL by injection route. 08/19 completed Not Available Not Available Not Available lidocaine (PF) 100 mg/5 mL (2 %) injection syringe Take 4 mL by injection route. 08/19 completed Not Available Not Available Not Available potassium chloride ER 20 mEq tablet,exte nded release TAKE ONE TABLET BY MOUTH EVERY DAY active Not Available Not Available No t Available Vitals Date Recorded Body height Body mass index (BMI) Body weight Provider Name and Address Organization Details Last Updated DateTime 08/20/2023 160.02 cm 24.8 kg/m2 00236.93 g Cortney Ch [place] - [facility], 08/20/2023 10:14:05 Social History Question Answer Notes LastModified by Organizat ion Details LastModified Time Tobacco Smoking Status Never Smoker Elsa [place] david [place] - [facility], 11/24/2022 09:59:31 What Is Your Level Of Alcohol Consumption? None Information not available 11/24/2022 Do You Use Any Illicit Or Recreational Drugs? No Information not available 11/24/2022 Do You Or Have You Ever Used Any Other Forms Of Tobacco Or Nicotine? No Information not available 11/24/2022 Sex: Unknown Functional Status None recorded. Mental Status None recorded. Family History Relationship Description Onset Age of this Age Resolved Age Notes LastModified by Organization Details LastModified Time Mother Family history of malignant neoplasm [email or web address] Not available 2022 09:37:55 Sister Family history of malignant neoplasm Not available 2022 10:05:38 Father Heart disease Not available 2022 10:05:59 Medical History Condition Response Arthritis Y Cancer Y Hypertension Y Gynecological HistoryNo gynecological history recorded. Obstetrics History GPAL:G 0 P 0 0 0 0 Past Encounters Encounter ID Performer Location Encounter Start Date Encounter Closed Date Diagnosis/Indication Diagnosis SNOMED-CT Code Diagnosis ICD10 Code [id number] MD REANNA Riggins [address] [place] [address] 04/28/2022 09:30:33 04/28/2022 10:29:26 Arthritis of joint of right shoulder region [id number] M13.811 Arthritis of joint of left shoulder region 0229684280 927542 M13.812 [id number] MD REANNA Cyr [facility] [address] [place] [address] 07/27/2022 09:47:19 07/27/2022 11:53:09 Pain of right shoulder joint [id number] [id number] M25.511 Pain of le ft shoulder joint [id number] 1526072 M25.512 Osteoarthr itis of right glenohumeral joint 0597572942 892403 M19.011 Osteoarthr itis of left glenohumeral joint 7403034921 945984 M19.012 [id number] MD REANNA Cyr [facility] [address] [address] 08/03/2022 10:27:28 08/03/2022 10:51:12 Osteoarthritis of right knee joint [id number] 13153 M17.11 [id number] MD REANNA Mccain [facility] [address] [address] 10/20/2022 09:38:49 10/20/2022 10:17:16 Pain of right shoulder joint 4891888366 [id number] M25.511 Pain of le ft shoulder joint 9400827979 9632992 M25.512 Osteoarthr itis of right glenohumeral joint 4229351628 150513 M19.011 Osteoarthr itis of left glenohumeral joint 1880019964 463077 M19.012 [id number] MD REANNA Cyr [facility] [address] [address] 11/24/2022 09:47:12 11/24/2022 10:11:10 Osteoarthritis of right knee joint 2136894639 60567 M17.11 [id number] MD REANNA Mccain [facility] [address] [address] 01/21/2023 10:09:04 01/21/2023 10:45:39 Pain of right shoulder joint 1720127348 7391989 M25.511 Pain of le ft shoulder joint 6791217476 5949532 M25.512 Osteoarthr itis of right glenohumeral joint 9629714898 646339 M19.011 Osteoarthr itis of left glenohumeral joint 9089479318 290741 M19.012 [id number] MD REANNA Cyr [address] [address] 02/25/2023 10:20:02 02/25/2023 10:56:29 Osteoarthritis of right knee joint 6801535344 62440 M17.11 [id number] MD REANNA Mccain [facility] [address] [address] 04/22/2023 09:10:12 04/22/2023 09:55:26 Pain of right shoulder joint 0968846747 9539120 M25.511 Pain of le ft shoulder joint 1067220509 9161855 M25.512 Osteoarthr itis of right glenohumeral joint 7875581352 618726 M19.011 Osteoarthr itis of left glenohumeral joint 3390686268 280677 M19.012 [id number] [facility] [address] [address] 05/13/2023 08:11:11 05/13/2023 09:10:22 Osteoarthritis of right knee joint [id number] 39488 M17.11 [id number] MD REANNA Barrios [facility] [address] [address] 07/22/2023 09:59:01 07/22/2023 10:47:09 Osteoarthritis of right glenohumeral joint 7209957728 154311 M19.011 Osteoarthr itis of left glenohumeral joint 8590340986 355620 M19.012 Osteoarthr itis of bilateral glenohumeral joints 4387276813 480698 M19.011 M19.012 [id number] MD REANNA Cyr [facility] [address] [address] 08/20/2023 09:46:12 08/20/2023 10:24:29 Osteoarthritis of right knee joint 8519676582 06061 M17.11 Health Concerns Section Related Observation LastModified by Organization Detai ls LastModified Time None Recorded Concern Status LastModified by Organization Details LastModified Time None Recorded Advance Directives Directive None Recorded Payers Encounter Date Sequence Insurance Name Policy Number Policy Pineda Covered Member ID Pineda Member ID Guarantor Name 02/25/2023 1 [employer] - DOS ON OR AFTER 2022 - ONE CARE (MEDICARE REPLACEMENT/ADV ANTAGE - HMO) Nayla Lepe [id number] Nayla Lepe 04/22/2023 1 [employer] - DOS ON OR AFTER 2022 - ONE CARE (MEDICARE REPLACEMENT/ADV ANTAGE - HMO) Nayla Lepe [id number] Nayla Lepe 05/13/2023 1 [employer] - DOS ON OR AFTER 2022 - ONE CARE (MEDICARE REPLACEMENT/ADV ANTAGE - HMO) Nayla Roberth [id number] Nayla Lepe 07/22/2023 1 [employer] - DOS ON OR AFTER 2022 - ONE CARE (MEDICARE REPLACEMENT/ADV ANTAGE - HMO) Nayla Lepe [id number] Nayla Roberth 08/20/2023 1 [employer] - DOS ON OR AFTER 2022 - ONE CARE (MEDICARE REPLACEMENT/ADV ANTAGE - HMO) Nayla Lepe [id number] Nayla Roberth Notes Date Note Type Note Provider Name and Address Organization Details Recorded Time 02/25/2023 text/html Pleasant 59-year -old female osteoarthritis of the right knee last cortisone injection was on 11/24/2022. Her pain is medial nature that is worse with walking. She has no other complaints at today's visit. LOVELY COATS PA-C [address], [place], [address], [place] - [facility] [employer] 02/25/2023 10:46:11 04/22/2023 text/html BL shoulders. cortisone 01/21/2023 Pleasant 68-year-old female history of bilateral shoulder pain history of glenohumeral arthritis as well as stiffness due to cerebral palsy. She denies any falls here for bilateral cortisone injections of the shoulders. Denies recent or current illness LOVELY COATS PA-C [address], [place], [address], [place] - [facility] [employer] 04/22/2023 09:51:36 05/13/2023 text/html 68-year-old kelli hendricks presents with recent recurrence of pain at the right knee. She is known to have osteoarthritis of the knee. She gets cortisone injections periodically which have continued to be effective at giving her meaningful relief of her pain. She requests a cortisone injection into the right knee today LOVELY NEWELL PA-C 299 [facility],[address], [place], [address], [facility] [employer] 05/13/2023 08:50:30 07/22/2023 text/html This is a 68-year-old rqybj-svxk-ciladbng female who is presenting with chronic bilateral shoulder pain secondary to glenohumeral arthritis. She does have a history of cerebral palsy as well. She has been seeing Lovely Coats for bilateral shoulder injections for arthritis, last injection was on 04/22/2023. She said this lasted pretty much for 3 months and then the pain starts again. She notes that she is very active and goes to the [employer] gym. When she is having pain, she takes Motrin which does help. She does not desire surgical intervention and would like steroid injections today. Lachelle Park MD 299 [facility] [address], [place], [address], [facility] [employer] 07/22/2023 11:14:59 08/20/2023 text/html 68-year-old kelli hendricks presents for recheck of right knee. She reports that the cortisone injection administered on 05/13/2023 was effective at helping to control her pain and the effects have been lasting. She does report that she had a fall last week striking the right knee causing some irritation. That has since begun to settle down. She has been capable of ambulating full weightbearing and unassisted since the fall. LOVELY NEWELL PA-C 299 [facility],[address], [place], [address], [facility] [employer] 08/20/2023 10:26:10 OBGyn Episode No OBEpisode recorded.
--- OUTSIDE RECORDS SUMMARY | 2024-02-03 09:23 | XMS_ITS | Clinical Summary ---
Author Organization Unknown Care Team Providers Care Heel Former Name Role Phone ROSA ISELA SPARKS Unavailable Unavailable VINITA ELENA, GRISEL Unavailable Unavailable Payers Payer Name Policy Type Policy Number Effective Date Expira tion Date [facility] [id number] MEDICAID [facility] [id number] MEDICARE - [facility] [facility] [id number] Problems Condition Name Condition Details Condition Category Status Onset Date Resolution Date Last Treatment Date Treating Clinician Comments MAJOR DEPRESSIVE DISORDER, SINGLE EPISODE, UNSPECIFIED Active 06-30 00:00: 00 Allergies, Adverse Reactions, Alerts Allergy Name Allergy Type Status Severity Reaction(s) Onset Date Inactive Date Treating Clinician Comments NKA Propensity to adverse reactions Active 2021-07 17:14:1 3 Medications Ordered Medication Name Filled Medication Name Start Date Stop Date Current Medication? Ordering Clinician Indication Dosage Frequency Signature (SIG) Comments Components polyethylen e glycol 3350 17 gram/dose oral powder 06-17 00:00: 00 07-19 00:00 :00 No [id number] 17 g DAILY 17 g DAILY (route: oral) Med Classific ation: Gastroint estinal Therapy Agents amlodipine 5 mg tablet 07-19 00:00: 00 Yes [id number] 5 mg DAILY 5 mg DENTON Y (route: oral) Med Classific ation: Cardiovas cular Therapy Agents lisinopril 20 mg tablet 07-19 00:00: 00 Yes [id number] 20 mg DAILY 20 mg DAILY (route: oral) Med Classific ation: Cardiovas cular Therapy Agents melatonin 3 mg tablet 07-19 00:00: 00 Yes [id number] 3 mg BEDTIME 3 mg BEDTIME (route: oral) Med Classific ation: Central Nervous System Agents anastrozole 1 mg tablet 07-19 00:00: 00 Yes [id number] 1 mg DAILY 1 mg DENTON Y (route: oral) Med Classific ation: Antineopl astics ferrous sulfate 325 mg (65 mg iron) tablet 07-19 00:00: 00 Yes [id number] 325 mg 2 TIMES DAILY 325 mg 2 TIMES DAILY (route: oral) Med Classific ation: Electroly te Balance-N utritiona l Products gabapentin 300 mg capsule 07-19 00:00: 00 Yes [id number] 300 capsule 3 TIMES DAILY 300 capsule 3 TIMES DAILY (route: oral) Med Classific ation: Central Nervous System Agents montelukast 10 mg tablet 07-19 00:00: 00 Yes [id number] 10 mg BEDTIME 10 mg BEDTIME (route: oral) Med Classific ation: Respirato ry Therapy Agents omeprazole 20 mg capsule,del ayed release 07-19 00:00: 00 Yes [id number] 20 mg DAILY 20 mg DAILY (route: oral) Med Classific ation: Gastroint estinal Therapy Agents ondansetron HCl 4 mg tablet 07-19 00:00: 00 Yes [id number] 4 mg NEEDED 4 mg NEEDED (route: oral) Med Classific ation: Gastroint estinal Therapy Agents paroxetine ER 37.5 mg tablet,exte nded release 24 hr 07-19 00:00: 00 Yes [id number] 37.5 mg DAILY 37.5 mg DAILY (route: oral) Med Classific ation: Central Nervous System Agents Senna Lax 8.6 mg tablet 07-19 00:00: 00 Yes [id number] 8.6 mg DIRECTED 8.6 mg DIRECTED (route: oral) Med Classific ation: Gastroint estinal Therapy Agents Vital Signs Vital Name Observation Time Observation Value Commen ts Temperature 2021-08-06 18:18:00.000 98 [degF] Temperature 2021-08-01 08:57:00.000 97.8 [degF] Temperature 2021-07-23 09:44:00.000 97.2 [degF] Temperature 2021-07-21 13:44:00.000 97.5 [degF] Temperature 2021-07-19 13:30:00.000 97.7 [degF] Height 2021-07-19 12:56:53.000 769 [in_us] Pulse 2021-08-06 18:18:00.000 80 /min Pulse 2021-08-01 08:57:00.000 90 /min Pulse 2021-07-23 09:44:00.000 99 /min Pulse 2021-07-19 13:30:00.000 70 /min Respirations 2021-08-06 18:18:00.000 19 /min Respirations 2021-08-01 08:57:00.000 18 /min Respirations 2021-07-23 09:44:00.000 18 /min Respirations 2021-07-19 13:30:00.000 20 /min Weight (lbs) 2021-07-19 12:57:15.000 Systolic Blood Pressure 2021-08-06 18:18:00.000 140 mm [Hg] Systolic Blood Pressure 2021-08-01 08:57:00.000 140 mm [Hg] Systolic Blood Pressure 2021-07-23 09:44:00.000 106 mm [Hg] Systolic Blood Pressure 2021-07-19 13:30:00.000 118 mm [Hg] Diastolic Blood Pressure 2021-08-06 18:18:00.000 74 mm [Hg] Diastolic Blood Pressure 2021-08-01 08:57:00.000 90 mm [Hg] Diastolic Blood Pressure 2021-07-23 09:44:00.000 80 mm [Hg] Diastolic Blood Pressure 2021-07-19 13:30:00.000 64 mm [Hg] Plan of Treatment Planned Activity Planned Date Details Comments Future Scheduled Test SKILLED NU RSE TO PERFORM GENERAL ASSESSMENT AND EVALUATE PATIENT, IDENTIFY PRIMARY AND CO-MORBID CONDITIONS, AND DEVELOP PATIENT SPECIFIC PLAN OF CARE THAT INCLUDES PATIENT GOAL FOR HOME HEALTH. CLINICAL SUMMARY (SOC/XAVIER/RECERT, 10 DAY, 60 DAY) THE PATIENT IS RECEIVING HOMECARE DUE TO NEW ONSET/EXACERBATION OF: MENTAL HEALTH RECENT HOSPITALIZATION/INPATIENT ADMISSION RELATED TO: YES NEW OR CHANGED MEDICATIONS PERTINENT TO THE PLAN OF CARE: YES PATIENT LIVING SITUATION/CAREGIVER STATUS: ALONE RECENT FALLS: NONE SKILLED TEACHING AND TRAINING, OBSERVATION AND ASSESSMENT, AND/OR TREATMENTS THAT REQUIRE SKILLED CARE: MEDICATION MANAGEMENT, VITAL SIGNS ASSESSMENT, MENTAL STATUS ASSESSMENT AND DIAGNOSIS MANAGEMENT ADDITIONAL DISCIPLINES NEEDED OR DECLINED ORDERED SERVICES: NONE [code = SKILLED NURSE TO PERFORM GENERAL ASSESSMENT AND EVALUATE PATIENT, IDENTIFY PRIMARY AND CO-MORBID CONDITIONS, AND DEVELOP PATIENT SPECIFIC PLAN OF CARE THAT INCLUDES PATIENT GOAL FOR HOME HEALTH. CLINICAL SUMMARY (SOC/XAVIER/RECERT, 10 DAY, 60 DAY) THE PATIENT IS RECEIVING HOMECARE DUE TO NEW ONSET/EXACERBATION OF: MENTAL HEALTH RECENT HOSPITALIZATION/INPATIENT ADMISSION RELATED TO: YES NEW OR CHANGED MEDICATIONS PERTINENT TO THE PLAN OF CARE: YES PATIENT LIVING SITUATION/CAREGIVER STATUS: ALONE RECENT FALLS: NONE SKILLED TEACHING AND TRAINING, OBSERVATION AND ASSESSMENT, AND/OR TREATMENTS THAT REQUIRE SKILLED CARE: MEDICATION MANAGEMENT, VITAL SIGNS ASSESSMENT, MENTAL STATUS ASSESSMENT AND DIAGNOSIS MANAGEMENT ADDITIONAL DISCIPLINES NEEDED OR DECLINED ORDERED SERVICES: NONE ] Future Scheduled Test NEED FOR C ONTINUATION OF PHYSICAL THERAPY SERVICES [code = NEED FOR CONTINUATION OF PHYSICAL THERAPY SERVICES] Future Scheduled Test NEED FOR C ONTINUATION OF OCCUPATIONAL THERAPY SERVICES [code = NEED FOR CONTINUATION OF OCCUPATIONAL THERAPY SERVICES] Future Scheduled Test PATIENT MA Y HAVE ONE SET OF EMERGENCY MEDICATION NOT TO BE PRE-POURED ANY SOONER THAN 24 HOURS BEFORE SEVERE INCLEMENT WEATHER AND FOLLOWING SKILLED NURSE EVALUATION OF PATIENT SAFETY. [code = PATIENT MAY HAVE ONE SET OF EMERGENCY MEDICATION NOT TO BE PRE-POURED ANY SOONER THAN 24 HOURS BEFORE SEVERE INCLEMENT WEATHER AND FOLLOWING SKILLED NURSE EVALUATION OF PATIENT SAFETY.] Future Scheduled Test SKILLED NU RSE TO O/A OF PATIENTS MENTAL/BEHAVIORAL STATUS, ASSESS VITAL SIGNS 3 TIMES A WEEK ALLOW 2 PRNS FOR MEDICATION MANAGEMENT. [code = SKILLED NURSE TO O/A OF PATIENTS MENTAL/BEHAVIORAL STATUS, ASSESS VITAL SIGNS 3 TIMES A WEEK ALLOW 2 PRNS FOR MEDICATION MANAGEMENT.] Future Scheduled Test SKILLED NU RSE MAY PICKUP AND TRANSPORT MEDICATIONS [code = SKILLED NURSE MAY PICKUP AND TRANSPORT MEDICATIONS] Future Scheduled Test SKILLED NU RSE FOR O/A OF GENERAL HEALTH STATUS OF PAIN, CARDIAC, RESPIRATORY, GASTROINTESTINAL, GENITOURINARY, SKIN, NEUROLOGIC, ENDOCRINE SYSTEMS TO IDENTIFY CHANGES ASSOCIATED WITH EXACERBATION FOR EARLY INTERVENTION OF COMPLICATIONS 3 TIMES A WEEK [code = SKILLED NURSE FOR O/A OF GENERAL HEALTH STATUS OF PAIN, CARDIAC, RESPIRATORY, GASTROINTESTINAL, GENITOURINARY, SKIN, NEUROLOGIC, ENDOCRINE SYSTEMS TO IDENTIFY CHANGES ASSOCIATED WITH EXACERBATION FOR EARLY INTERVENTION OF COMPLICATIONS 3 TIMES A WEEK ] Future Scheduled Test SKILLED NU RSE TO ADMINISTER MEDICATIONS THREE TIMES A WEEK AND PRE-POUR MEDICATIONS TILL NEXT SN VISIT PER MEDICATION LIST. [code = SKILLED NURSE TO ADMINISTER MEDICATIONS THREE TIMES A WEEK AND PRE-POUR MEDICATIONS TILL NEXT SN VISIT PER MEDICATION LIST.] Future Scheduled Test SKILLED NU RSE FOR O/A AND SKILLED TEACHING OF COPING SKILLS TO MANAGE ANXIETY AND MAINTAIN SAFETY INCLUDING PARTICIPATION IN [facility] CARING BRAVE OR MINDFUL CARE SPECIALTY PROGRAM. [code = SKILLED NURSE FOR O/A AND SKILLED TEACHING OF COPING SKILLS TO MANAGE ANXIETY AND MAINTAIN SAFETY INCLUDING PARTICIPATION IN [facility] BRAVE OR MINDFUL CARE SPECIALTY PROGRAM.] Future Scheduled Test SKILLED NU RSE FOR O/A AND SKILLED TEACHING RELATED TO MANAGEMENT OF DEPRESSIVE SYMPTOMS AND/OR DEPRESSION INCLUDING PARTICIPATION IN [facility] MINDFUL CARE SPECIALTY PROGRAM. SN TO REPORT SIGNIFICANT CHANGE IN DEPRESSIVE SYMPTOMS TO CLINICAL PROVIDER FOR EARLY INTERVENTION. [code = SKILLED NURSE FOR O/A AND SKILLED TEACHING RELATED TO MANAGEMENT OF DEPRESSIVE SYMPTOMS AND/OR DEPRESSION INCLUDING PARTICIPATION IN [facility] MINDFUL CARE SPECIALTY PROGRAM. SN TO REPORT SIGNIFICANT CHANGE IN DEPRESSIVE SYMPTOMS TO CLINICAL PROVIDER FOR EARLY INTERVENTION.] Goal 2021-08-18 Patient Goal - TAKING MY MED ICATIONS Goal Provider Goal - A PLAN OF CARE WILL BE ESTABLISHED THAT MEETS PATIENT'S GROUP HOME NEEDS AND INCLUDES PATIENT GOAL FOR HOME HEALTH. Goal Provider Goal - PHYSICAL THERAPY SERVICES TO CONTINUE AND PLAN OF TREATMENT CARE WILL BE RE-ESTABLISHED/UPDATED IN THE NEW CERTIFICATION PERIOD. Goal Provider Goal - OCCUPATIONAL THERAPY SERVICES TO CONTINUE AND PLAN OF TREATMENT CARE WILL BE RE-ESTABLISHED/UPDATED IN THE NEW CERTIFICATION PERIOD. Goal Provider Goal - ALTERED MENTAL/BEHAVIORAL STATUS WILL BE IDENTIFIED PROMPTLY AND INTERVENTION INITIATED QUICKLY TO MINIMIZE ASSOCIATED RISKS Goal Provider Goal - CHANGE IN GENERAL HEALTH STATUS WILL BE IDENTIFIED AND REPORTED TO PHYSICIAN FOR PROMPT INTERVENTION TO MINIMIZE ASSOCIATED RISKS THROUGHOUT CERTIFICATION PERIOD. Goal Provider Goal - PATIENT WILL COMPLY WITH MEDICATION WHEN SKILLED NURSE ADMINISTERS AND PRE-POURS MEDICATION. Goal Provider Goal - PATIENT WILL COMPLY WITH MEDICATION WHEN NURSE ADMINISTERS. Goal Provider Goal - PATIENT WILL COMPLY WITH MEDICATION WHEN SKILLED NURSE PRE-POURS MEDICATION. Goal Provider Goal - Goal Provider Goal - PATIENT WILL REMAIN SAFE WITHOUT DECOMPENSATION IN DEPRESSIVE CONDITION, WHILE MAINTAINING OPTIMAL LEVEL OF MENTAL HEALTH AND WELL BEING. Goal Provider Goal - PATIENT WILL BE ABLE TO PERFORM DAILY FUNCTIONS AND HAVE OPTIMAL IMPROVEMENT IN LEVEL OF ANXIETY Reason for Visit INDEPENDENT IN THE HOME Encounters Start Date/Time End Date/Time Encounter Type Admission Type Attending [facility] Care Department Encounter ID Discharge Date Discharge Status Discharge Condition Discharge Reason Percent Goals Met 2021-07-19 00:00:00 2021-08-18 00:00:00 Outpatient NEW ADMISSION GRISEL [facility] [id number] 2024-07-11 00:00:00 DISCHARGE TO HOME OR SELF CARE INDEPENDEN T IN THE HOME GOALS MET ( ONLY) 58.33
[2024-02-03 09:31] VITALS: BP 140/90; PULSE 80; O2SAT 97; BMI 24.4
[2024-02-03 09:49] VITALS: BP 130/80
== END 2024-02-03 10:02 | disposition home or self-care (01) ==
PROVIDERS: PCP Physician Assistant; Visit Provider Physician Assistant
DX: M25.811 Other specified joint disorders, right shoulder (principal); G80.1 Spastic diplegic cerebral palsy; D64.9 Anemia, unspecified; I10 Essential (primary) hypertension

== ENCOUNTER → 2024-02-03 09:20 | Outpatient (BNVA) | payer OTHER, SELFPAY | PROVIDERS: PCP Physician Assistant; Visit Provider Physician Assistant | DX: G80.1 Spastic diplegic cerebral palsy (principal); I10 Essential (primary) hypertension; F32.A Depression, unspecified; J45.909 Unspecified asthma, uncomplicated; M25.811 Other specified joint disorders, right shoulder; D50.9 Iron deficiency anemia, unspecified | CPT/HCPCS: 96127; 99212 ==

== ENCOUNTER 2024-03-13 09:55 | Outpatient (REF) | payer OTHER, SELFPAY ==
--- OUTSIDE RECORDS SUMMARY | 2024-03-13 10:28 | XMS_ITS | Clinical Summary ---
Author Organization [facility] Facility Address [address] [address] Care Team Providers Care Associate Professor Of Church Music Name Role Phone Polo Nascimento Primary Care Provider [phone] Social History Tobacco Use Types Packs/Day Years Used Date Smoking Tobacco: Never Assessed Comments Unknown Sex and Gender Information Value Date Recorded Sex Assigned at Not on file Legal Sex Female 8:42 AM EDT Gender Identity Not on file Sexual Orientation Not on file Plan of Treatment Health Maintenance Due Date Last Done Comments Breast Cancer Screening 1954 Colorectal Cancer Screening: Annual FOBT 2003 Colorectal Cancer Screening: Colonoscopy 2003 Colorectal Cancer Screening: Sigmoidoscopy 2003 Influenza Vaccine (#1) 2023 9, 11/09/2017, 11/25/2016 Pneumococcal Vaccine: 65+ Years (3 of 3 - PPSV23 or PCV20) 11/15/2024 11/16/2019, 12/31/2015 Hepatitis B Vaccine Aged Out No longe r eligible based on patient's age to complete this topic Insurance [facility] Care Teams Associate Professor Of Church Music Relationship Specialty Start Date End Date Polo Nascimento PA [address] [facility], [address] [place] [address] PCP - General Physician Product Responsibility Liaison 06/30/21
--- OUTSIDE RECORDS SUMMARY | 2024-03-13 10:29 | XMS_ITS | Data Portability ---
Author Organization [facility] [place] Address [address] [place] [address] Care Team Providers Care Home Performance Consultant Name Role Phone [facility] Referring Provider Assessment Encounter Date Assessment Date Assessment LastModified by Organization Details LastModified Time 03/17/2022 03/17/2022 As noted, we were called to see this patient regarding concerns of low back pain and muscle spasms after recent fall.. Evaluation in the field was performed by my technical sales representatives colleague, as noted above, I provided real-time [...] Robaxin-75 0 750 mg tablet 2022 023 [facility] [place], [address], 3 10:40:44 lidocaine 5 % topical patch 2022 023 [facility], [address] [facility], [place], [address], 3 10:40:43 Patient TargetsNo targets recorded. Patient [...] Diagnosis/Indication Diagnosis SNOMED-CT Code Diagnosis ICD10 Code Diagnosis Note [id number] Asif Cloud MD [facility] - [facility] [address] [place] [id number] 03/17/2022 10:37:40 03/19/2022 12:17:58 Low back pain [id number] M54.50 Health Concerns Section Related Observation LastModified by Organization Detai ls LastModified Time None Recorded Concern Status LastModified by Organization Details LastModified Time None Recorded Advance Directives Directive None Recorded Payers Encounter Date Sequence Insurance Name Policy Number Policy Pineda Covered Member ID Pineda Member ID Guarantor Name 03/17/2022 1 [facility] - DOS PRIOR TO 2022 - DUAL ELIGIBLE (MEDICARE REPLACEMENT/ADV ANTAGE - HMO) Nayla Lepe [id number] Nayla Lepe Notes Date Note Type Note Provider Name and Address Organization Details Recorded Time 03/17/2022 text/html [facility] Nursing Assessment: Reason For Request: Pain Patient Reports: Weakness with fall, able to move all extremities Chief Complaints: Falls, Pain PMH: COPD/Asthma, Hypertension, Cancer Allergies: No Known Comments: Member requesting [facility] visit. Member is s/p fall 2 [...] ................... ................... ................... ................... ................... ................... ........ Crabber Note From Carie Hall: Dispatched to the [...] no constant pain, pt ambulating wo issue, [facility] and prescriptions call to pharmacy ................... ................... ................... ................... ................... ................... ................... ........ Disposition: Fulfilled Asif Cloud MD [address] [facility],[address], [place], [address], [employer] [facility] [place] 03/17/2022 11:01:25 OBGyn Episode No OBEpisode recorded.
--- OUTSIDE RECORDS SUMMARY | 2024-03-13 10:29 | XMS_ITS | Clinical Summary ---
Author Organization [facility] Address [address] [place] [address] Care Team Providers Care Solar Power Installer Name Role Phone AnaLanden Primary Care Provider Allergies No known active allergies Medications Medication Sig Dispensed Refills Start Date End Date Status gabapentin (NEURONTIN) 300 MG capsule Take 900 mg by mouth 3 (three) times a day. 1 11/13/2016 Active ibuprofen (ADVIL,MOTRIN) 800 MG tablet 0 09/14/2016 Active naproxen (NAPROSYN) 500 MG tablet 0 11/25/2016 Active PAXIL CR 12.5 MG 24 hr tablet 1 11/09/2016 Active PAXIL CR 25 MG 24 hr tablet 0 11/09/2016 Active lisinopril (PRINIVIL,ZESTRIL) tablet 5 mg Take 1 tablet (5 mg total) by mouth daily. 90 tablet 0 09/24/2017 Active fluticasone (FLOVENT HFA) 110 MCG/ACT inhaler Inhale 1 puff into the lungs. 0 Active montelukast (SINGULAIR) 10 MG tablet Take 10 mg by mouth. 0 07/20/2018 Active DOK 100 MG capsule Take 100 mg by mouth 2 (two) times a day. 2 06/24/2018 Active FLOVENT DISKUS 250 MCG/BLIST AEPB 0 09/01/2018 Active lisinopril (PRINIVIL,ZESTRIL) tablet 10 mg 0 08/10/2018 Active phenazopyridine (PYRIDIUM) 200 MG tablet TAKE ONE TABLET BY MOUTH THREE TIMES A DAY AFTER MEALS FOR 2 DAYS 0 05/30/2019 Active albuterol (PROVENTIL) (2.5 MG/3ML) 0.083% nebulizer solution INHALE THE CONTENTS OF 1 VIAL (3 ML) EVERY 4 HOURS 0 10/13/2019 Active letrozole (FEMARA) 2.5 MG tablet Take 2.5 mg by mouth daily. 0 09/25/2019 Active ANTI-DIARRHEAL 2 MG tablet TAKE 1 TABLET BY MOUTH 4 TIMES DAILY NEEDED FOR 15 DAYS 0 10/23/2019 Active oxyCODONE-acetaminop hen (PERCOCET) 5-325 MG per tablet TAKE 1-2 TABLETS BY MOUTH EVERY 4 TO 6 HOURS NEEDED FOR PAIN 0 10/30/2019 Active anastrozole (ARIMIDEX) 1 MG tablet TAKE ONE TABLET BY MOUTH EVERY DAY 0 07/22/2020 Active ferrous sulfate 325 (65 FE) MG tablet Take 1 tablet by mouth 2 (two) times a day. 0 07/23/2020 Active omeprazole (PriLOSEC) 20 MG capsule 0 02/23/2021 Active amLODIPine (NORVASC) tablet 5 mg Take 5 mg by mouth daily. 0 07/18/2021 Active Potassium Chloride ER 20 MEQ TBCR TAKE ONE TABLET BY MOUTH EVERY DAY 0 07/11/2021 Active acetaminophen (TYLENOL EXTRA STRENGTH) 500 MG tablet TAKE ONE TABLET BY MOUTH EVERY 4 TO 6 HOURS NEEDED FOR PAIN 0 07/30/2021 Active vitamin B-12 (CYANOCOBALAMIN) tablet 1000 mcg TAKE ONE TABLET BY MOUTH EVERY DAY 0 09/15/2021 Active Mapap Arthritis Pain 650 MG CR tablet Take 1 tablet (650 mg total) by mouth every 12 (twelve) hours. 0 01/21/2022 Active Active Problems Problem Noted Date Diagnosed Date Arthritis of knee, right 10/28/2021 Arthritis of knee, right 06/10/2021 Arthritis of right shoulder region 05/09/2019 Arthritis of knee, right 09/22/2018 Arthritis of left shoulder region 05/18/2017 Chronic right shoulder pain 02/16/2017 Chronic left shoulder pain 02/16/2017 Chronic pain of both knees 12/01/2016 Family History Medical History Relation Name Comments Heart disease Father Cancer Mother Hypertension Mother Relation Name Status Comments Father Mother Social History Tobacco Use Types Packs/Day Years Used Date Smoking Tobacco: Never Smokeless Tobacco: Never Alcohol Use Standard Drinks/Week Comments No 0 (1 standard drink = 0.6 oz pur e alcohol) Sex and Gender Information Value Date Recorded Sex Assigned at Not on file Gender Identity Not on file Sexual Orientation Not on file Job Start Date Occupation Industry Not on file Not on file Not on file Last Filed Vital Signs Vital Sign Reading Time Taken Comments Blood Pressure - - Pulse - - Temperature - - Respiratory Rate - - Oxygen Saturation - - Inhaled Oxygen Concentration - - Weight 72.1 kg (159 lb) 04/15/2018 9:10 AM EST Height 162.6 cm (5' 4 ) 04/15/2018 9:10 AM EST Body Mass Index 27.29 04/15/2018 9:10 AM EST Plan of Treatment Health Maintenance Due Date Last Done Comments Hepatitis C Screening 1954 COVID-19 Vaccine (#1) 1954 Depression Screening 1966 BMI Counseling 1972 Preventative Health Evaluation 1972 DTap / Tdap / Td (1 - Tdap) 1973 Colon Cancer Screening (Colonoscopy) 1999 Breast Cancer Screening (Mammogram) 2004 Shingrix-Zoster Vaccine (1 o f 2) 2004 Fall Risk Assessment 2019 Osteoporosis Screening (DEXA Scan) 2019 Influenza Vaccine (#1) 2023 9, 11/09/2017, 11/25/2016 Pneumococcal Vaccine (3 of 3 - PPSV23 or PCV20) 11/15/2024 11/16/2019, 12/31/2015 RSV Adult > 60+ Yrs or (1 - 1-dose 75+ series) 2029 Hepatitis B Vaccines Aged Out No long er eligible based on patient's age to complete this topic RSV Ped < 20 months Aged Out No longe r eligible based on patient's age to complete this topic Care Teams Solar Power Installer Relationship Specialty Start Date End Date Landen Perez DO [address] [place] [id number] PCP - General 10/20/16
== END 2024-03-13 09:56 | disposition home or self-care (01) ==
LOC: HO.MAMMO 09:55
PROVIDERS: PCP Physician Assistant; Visit Provider Physician Assistant
DX: Z12.31 Encounter for screening mammogram for malignant neoplasm of breast (principal)
CPT/HCPCS: 77063; 77067

== ENCOUNTER → 2024-03-13 10:30 | Outpatient (BNV) | payer OTHER, SELFPAY | PROVIDERS: PCP Physician Assistant; Visit Provider Internal Medicine | DX: Z12.31 Encounter for screening mammogram for malignant neoplasm of breast (principal) | CPT/HCPCS: 77063; 77067 ==

== ENCOUNTER 2024-03-23 08:32 | Outpatient (AMB) | payer OTHER, SELFPAY ==
--- NOTE | 2024-03-23 08:36 | MHC.OFFVIS ---
Vital Signs 03/23/24 08:38 Height 5 ft 5 in Weight 146 lb 8 oz BMI 24.4 Intake Visit Reasons: Bilateral knee pains Intake Note: Nayla is a 68 year old female who presents with complaints of progressively worsening bilateral knee pains. She describes her pains as sharp in nature. Her pains have gotten worse over the last few months in spite of continued non operative treatments. She has had cortisone injections in the past which gave her fairly good relief. She has also tried Tylenol which gives only mild relief. She denies any locking or giving way. She would like to hold off on surgery if at all possible. Allergies No Known Allergies [No Known Allergies*] Allergy (Verified 03/23/24 08:39) Medication List - Last Reviewed 03/23/24 by ELDER Coley acetaminophen ER 650 mg PO Q12H 30 days albuterol sulfate 2.5 mg inhalation Q4H PRN amlodipine (Norvasc) 5 mg PO DAILY anastrozole (Arimidex) 1 tab PO DAILY cyanocobalamin (vitamin B-12) (Vitamin B-12) 1,000 mcg PO DAILY docusate sodium (Colace) 100 mg PO BID 30 days fluticasone propion-salmeterol 100-50 mcg/dose (Wixela Inhub) 1 inh inhalation BID 30 days gabapentin 900 mg (3 x 300 mg) PO TID ibuprofen 800 mg PO Q12H PRN 30 days [kotex pads As directed] lisinopril 20 mg PO DAILY 90 days montelukast 10 mg PO BEDTIME 90 days omeprazole 20 mg PO DAILY 30 days ondansetron 1 tab PO Q6H PRN paroxetine HCl ER 12.5 mg PO DAILY Paxil CR (paroxetine HCl) 50 mg (2 x 25 mg) PO DAILY NS Paxil CR (paroxetine HCl) 12.5 mg PO DAILY NS prednisone 10 mg PO DIRECTED 9 days [shower chair As directed] simethicone 180 mg PO BID 30 days [toilet arms As directed] [wipes As directed] PFSH Medical History Colonic stricture Frequent falls Hx of flexible sigmoidoscopy Elevated platelet count Colonic stricture Breast CA Prolapse of intestine Rectal prolapse Invasive lobular carcinoma of breast in female Asthma MDD (major depressive disorder) Surgical History History of gastric surgery History of lumpectomy of right breast History of open sigmoidectomy Family History Father Family history unknown Mother Breast cancer Brother No problems noted. Sister History of leukemia Social History Household Members: None Housing: Apartment Are you a primary career placement services counselor to a significant other at home: No Do you presently have visiting nurse or other home services: Yes Alcohol intake: former Patient Tobacco Use Status: Never used Tobacco e-Cigarette/Vaping Use: Never Used Second Hand Smoke Exposure: No Advance Directives Date on File: 09/01/21 service: No Current occupational status: retired Cognitive needs: Yes (walker) Hearing needs: No Vision needs: Yes (reading glasses) Physical Exam Vital Signs: BMI result Body Mass Index 24.4 Const Other: Well-nourished well-developed very friendly female awake alert and oriented x3 in no acute distress Extrem Other: Bilateral knee examination shows minimal effusions, palpable crepitus with range of motion, pain with range of motion, no instability Office Procedures AMB Joint Injection/Aspiration Joint Injection/Aspiration Primary Site: left knee Prep: site was prepped using aseptic technique Injected: 40 mg of, DepoMedrol and 1% plain lidocaine Procedure: The patient tolerated the procedure well Coding 12405 - Large joint Procedure code (CPT) selection complete AMB Joint Injection/Aspiration Joint Injection/Aspiration Primary Site: right knee Prep: site was prepped using aseptic technique Injected: 40 mg of, DepoMedrol and 1% plain lidocaine Procedure: The patient tolerated the procedure well Coding 66157 - Large joint Procedure code (CPT) selection complete Assessment & Plan Assessment & Plan (1) Arthritis of left knee: Code(s): M17.12 - Unilateral primary osteoarthritis, left knee Category: Medical (2) Arthritis of right knee: Code(s): M17.11 - Unilateral primary osteoarthritis, right knee Category: Medical Plan Ms. Lepe presents with bilateral knee pains due to degenerative joint disease. The risks and benefits of bilateral knee cortisone injections were discussed at length with the patient. The patient wished to proceed. She tolerated the injections well. She will continue with her home exercise program. She will contact me prior to her follow-up appointment in 3 months should any questions or concerns arise. Feel free to call me at any time should questions regarding her orthopedic management arise. I spent 22 minutes in reviewing the patient's records and imaging studies, seeing the patient and documenting in the medical record. Orders: Orders AMB Joint Injection/Aspiration Today M17.12 - Unilateral primary osteoarthritis, left knee AMB Joint Injection/Aspiration Today M17.11 - Unilateral primary osteoarthritis, right knee Coding Level of Care Code Est Pt Level 3 (98507) Complex EM visit Add On G2211 Diagnoses Arthritis of left knee M17.12 Arthritis of right knee M17.11 CPT Codes Coding - 83838 Large joint: 88379 - Large joint ([id number]) Coding - 43746 Large joint: 55802 - Large joint ([id number])
[2024-03-23 08:38] VITALS: BMI 24.4
--- OUTSIDE RECORDS SUMMARY | 2024-03-23 08:39 | XMS_ITS | Clinical Summary ---
Author Organization [facility] Address [address] [address] Care Team Providers Care Cement Sack Breaker Name Role Phone Polo Nascimento Primary Care Provider Social History Tobacco Use Types Packs/Day Years [...] patient's age to complete this topic Insurance [facility] Care Teams Cement Sack Breaker Relationship Specialty Start Date End Date Polo Nascimento PA [address] [facility], [address] [place] [address] PCP - General Physician Pasting Inspector 06/30/21
--- OUTSIDE RECORDS SUMMARY | 2024-03-23 08:39 | XMS_ITS | Data Portability ---
Author Organization [employer] Address [address] [place] [address] Care Team Providers Care Functional Tester Typewriters Name Role Phone [facility] Referring Provider [phone] Assessment Encounter Date Assessment Date Assessment LastModified by Organization Details LastModified Time 03/17/2022 03/17/2022 As noted, we were called to see this patient regarding concerns of low back pain and muscle spasms after recent fall.. Evaluation in the field was performed by my accounting methods analyst colleague, as noted above, I provided real-time [...] Robaxin-75 0 750 mg tablet 2022 023 [facility] [place], [address], 3 10:40:44 lidocaine 5 % topical patch 2022 023 [facility], [address] [facility], [place], [address], 3 10:40:43 Patient TargetsNo targets recorded. Patient [...] [id number] Asif Cloud MD Main - [facility] [address] [place] [id number] 03/17/2022 10:37:40 03/19/2022 12:17:58 Low back pain [id number] M54.50 Health Concerns Section Related Observation LastModified by Organization Detai ls LastModified Time None Recorded Concern Status LastModified by Organization Details LastModified Time None Recorded Advance Directives Directive None Recorded Payers Encounter Date Sequence Insurance Name Policy Number Policy Pineda Covered Member ID Pineda Member ID Guarantor Name 03/17/2022 1 [facility] - DOS PRIOR TO 2022 - DUAL ELIGIBLE (MEDICARE REPLACEMENT/ADV ANTAGE - HMO) Nayla Lepe [id number] Nayla Lepe Notes Date Note Type Note Provider Name and Address Organization Details Recorded Time 03/17/2022 text/html [facility] Nursing Assessment: Reason For Request: Pain Patient Reports: Weakness with fall, able to move all extremities Chief Complaints: Falls, Pain PMH: COPD/Asthma, Hypertension, Cancer Allergies: No Known Comments: Member requesting [facility] visit. Member is s/p fall 2 weeks [...] ................... ................... ................... ................... ................... ................... ........ Business Relations Manager Note From Carie Hall: Dispatched to the [...] no constant pain, pt ambulating wo issue, [facility] discussed and prescriptions call to pharmacy ................... ................... ................... ................... ................... ................... ................... ........ Disposition: Fulfilled Asif Cloud MD [address] [facility],[address], [place], [address], [employer] 03/17/2022 11:01:25 OBGyn Episode No OBEpisode recorded.
--- OUTSIDE RECORDS SUMMARY | 2024-03-23 08:39 | XMS_ITS | Patient Health Record ---
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
--- OUTSIDE RECORDS SUMMARY | 2024-03-23 08:40 | XMS_ITS | Clinical Summary ---
Author Organization [facility] Address [address] [place] [address] Care Team Providers Care Bell Spinner Sousaphones Name Role Phone AnaLanden Primary Care Provider [phone] Allergies No known active allergies Medications Medication [...] age to complete this topic Care Teams Bell Spinner Sousaphones Relationship Specialty Start Date End Date Landen Perez DO [address] [place] [id number] PCP - General 10/20/16
--- OUTSIDE RECORDS SUMMARY | 2024-03-23 08:40 | XMS_ITS | Data Portability ---
Author Organization [place] [facility] Nadeen Stoll AONE [place] Address [address] [facility] [address] [place] [address] Care Team Providers Care Miner Pick Name Role Phone JEANCARLOS KENNEDY Primary Care Provider [phone] JEANCARLOS KENNEDY Referring Provider JEANCARLOS KENNEDY Primary Care Provider [phone] Assessment Encounter Date Assessment Date Assessment LastModified [...] . Surgeries None recorded . Imaging XR, knee, 4 or more view 2023 024 [email or web address] [facility], [address], [place], [address], 4 10:53:14 XR, shoulder , 2 or more view 2023 024 [facility], [address], [place], [address], 4 13:06:37 XR, shoulder , 2 or more view 2023 024 [facility], [address], [place], [address], 4 13:06:37 Medication Orders lidocain e (PF) 10 mg/mL (1 %) injectio n solution [email or web address] [place] [address] [facility]89, [address] [place], [place], [id number], 4 10:13:47 triamcin olone acetonid e 40 mg/mL suspensi on for injectio n [address] [facility]43108, [address] [place], [place], [id number], 4 10:13:59 Marcaine (PF) 0.5 % (5 mg/mL) injectio n solution [address] [facility] #05004, [address] [place], [place], [id number], 4 10:13:53 lidocain e (PF) 100 mg/5 mL (2 %) injectio n syringe [address] [facility]03269, [address] [place], [place], [id number], 4 10:13:50 triamcin olone acetonid e 40 mg/mL suspensi on for injectio n [address] [facility] #85224, [address] [place], [place], [id number], 4 10:13:59 Kenalog 40 mg/mL suspensi on for injectio n [address] [facility] #12005, [address] [place], [place], [id number], 4 10:13:59 lidocain e (PF) 10 mg/mL (1 %) injectio n solution [address] [facility] #53210, [address] [place], [place], [id number], 4 10:13:47 Kenalog 40 mg/mL suspensi on for injectio n [address] [facility] #31270, [address] [place], [place], [id number], 4 10:13:59 lidocain e (PF) 10 mg/mL (1 %) injectio n solution [address] [facility] #62669, [address] [place], [place], [id number], 4 10:13:47 Kenalog 40 mg/mL suspensi on for injectio n [address] [facility] #59417, [address] [place], [place], [id number], 4 10:13:59 lidocain e (PF) 10 mg/mL (1 %) injectio n solution [address] [facility] #81989, [address] [place], [place], [id number], 4 10:13:47 Patient TargetsNo targets recorded. Patient Instructions Encounter Date Encounter Id Patient Instructions Last Modified By Organization Details Last Modified Time 02/25/2023 [id number] You have been provided with a cortisone [...] office or contact us through the portal [facility]. Not available 02/25/2023 10:45:46 04/22/2023 [id number] You have been provided with a cortisone [...] office or contact us through the portal [facility]. Not available 04/22/2023 09:49:35 07/22/2023 [id number] You have been provided with a cortisone [...] the bones. Not available 07/22/2023 11:13:41 08/20/2023 [id number] {{2 3 4 5 6 7* 8 [...] Osteoarthri tis of right glenohumera l joint 9884604187818 101 Active 2022 LOVELY COATS PA-C [address], [place], [address], [place] [facility] 3 10:35:14 Osteoarthri tis of left glenohumera l joint 6989720257246 104 Active 2022 LVOELY COATS PA-C [address], [place], [address], [place] [facility] 3 10:35:19 Osteoarthri tis of right knee joint 7184482269792 00 Active 2022 LOVELY COATS PA-C [address], [place], [address], [place] [facility] 3 11:23:10 Pain of right shoulder joint 1361668911153 9100 Active 2022 LOVELY COATS PA-C [address], [place], [address], [place] [facility] 3 07:50:39 Pain of left shoulder joint 3949362197793 9109 Active 2022 LOVELY COATS PA-C [address], [place], [address], [place] [facility] 3 07:50:39 Arthritis of joint of right shoulder region 6072076502740 101 Active 2022 LOVELY COATS PA-C [address], [place], [address], [place] [facility] 3 09:58:21 Arthritis of joint of left shoulder region 7881764766987 106 Active 2022 LOVELY COATS PA-C [address], [place], [address], [place] [facility] 3 09:58:30 Problem Notes None recorded. Procedures Surgical History Date Name Laterality Status Provider Name and Address Organization Details Recorded Time 07/22/19 24 LES Shoulder Interarticular Inj completed Lachelle Park MD [address], [place], [address], [place] [facility] 07/22/2023 11:12:25 05/13/19 24 MJG Knee injection w/US completed LOVELY NEWELL PA-C [address], [place], [address], [place] [facility] 05/13/2023 08:49:56 04/22/19 24 Knee Joint/Bursa Asp & Inj completed LOVELY COATS PA-C [address], [place], [address], [place] [facility] 04/22/2023 09:49:34 02/25/19 24 Knee Joint/Bursa Asp & Inj completed LOVELY COATS PA-C [address], [place], [address], [place] [facility] 02/25/2023 10:44:49 01/22/20 23 Knee Joint/Bursa Asp & Inj completed LOVELY COATS PA-C [address], [place], [address], [place] [facility] 01/21/2023 09:39:57 11/25/19 23 Knee Joint/Bursa Asp & Inj completed LOVELY COATS PA-C [address], [place], [address], [place] [facility] 11/24/2022 10:01:30 10/21/19 23 Knee Joint/Bursa Asp & Inj completed LOVELY COATS PA-C [address], [place], [address], [place] [facility] 10/20/2022 07:50:46 08/04/19 23 Knee Joint/Bursa Asp & Inj completed LOVELY COATS PA-C [address], [place], [address], [place] [facility] 08/03/2022 07:56:34 07/28/19 23 Knee Joint/Bursa Asp & Inj completed LOVELY COATS PA-C [address] [facility],[address], [place], [address], [place] [facility] 07/27/2022 07:52:16 04/29/19 23 Shoulder Joint/Bursa Asp & Inj completed LOVELY COATS PA-C [address] [facility],[address], [place], [address], [place] [facility] 04/28/2022 10:09:22 Imaging Results None recorded. [...] Updated DateTime 08/20/2023 160.02 cm 24.8 kg/m2 16465.93 g Cortney Ch [place] [facility], 08/20/2023 10:14:05 Social History Question Answer Notes LastModified by Organizat ion Details LastModified Time Tobacco Smoking Status Never Smoker Elsa Kenn[place] david [place] [facility], 11/24/2022 09:59:31 What Is Your Level Of [...] available 2022 10:05:59 Medical History Condition Response Cancer Y Arthritis Y Hypertension Y Gynecological HistoryNo gynecological history recorded. Obstetrics History GPAL:G 0 P 0 0 0 0 Past Encounters Encounter ID Performer Location Encounter Start Date Encounter Closed Date Diagnosis/Indication Diagnosis SNOMED-CT Code Diagnosis ICD10 Code Diagnosis Note [id number] MD REANNA Riggins [address] [place] [address] 04/28/2022 09:30:33 04/28/2022 10:29:26 Arthritis of joint of right shoulder region 5989753507 287403 M13.811 Arthritis of joint of left shoulder region 0567627988 274918 M13.812 [id number] MD REANNA Cyrmary anne [address] [facility] [address] [place] [address] 07/27/2022 09:47:19 07/27/2022 11:53:09 Pain of right shoulder joint 8590182436 7222583 M25.511 Pain of le ft shoulder joint 5515869322 4566659 M25.512 Osteoarthr itis of right glenohumeral joint 3585020621 450698 M19.011 Osteoarthr itis of left glenohumeral joint 4264590541 688405 M19.012 [id number] MD REANNA [facility] [address] [address] 08/03/2022 10:27:28 08/03/2022 10:51:12 Osteoarthritis of right knee joint 0433333973 73337 M17.11 [id number] MD REANNA Mccain [facility] [address] [address] 10/20/2022 09:38:49 10/20/2022 10:17:16 Pain of right shoulder joint 1973784939 8647424 M25.511 Pain of le ft shoulder joint 4742184564 9330634 M25.512 Osteoarthr itis of right glenohumeral joint 6202868628 978453 M19.011 Osteoarthr itis of left glenohumeral joint 0023000361 796917 M19.012 [id number] MD REANNA [facility] [address] [address] 11/24/2022 09:47:12 11/24/2022 10:11:10 Osteoarthritis of right knee joint 9296010367 51174 M17.11 [id number] MD REANNA Mccain [facility] [address] [address] 01/21/2023 10:09:04 01/21/2023 10:45:39 Pain of right shoulder joint 6381693834 2605376 M25.511 Pain of le ft shoulder joint 4701976089 3895688 M25.512 Osteoarthr itis of right glenohumeral joint 4508669425 590079 M19.011 Osteoarthr itis of left glenohumeral joint 8107869491 561957 M19.012 [id number] MD REANNA Cyrmary anne [address] [address] 02/25/2023 10:20:02 02/25/2023 10:56:29 Osteoarthritis of right knee joint 1190983092 58522 M17.11 [id number] MD REANNA Mccain [facility] [address] [address] 04/22/2023 09:10:12 04/22/2023 09:55:26 Pain of right shoulder joint 7923905778 4332635 M25.511 Pain of le ft shoulder joint 4773621039 8441290 M25.512 Osteoarthr itis of right glenohumeral joint 9075365617 540032 M19.011 Osteoarthr itis of left glenohumeral joint 3089287213 383239 M19.012 [id number] MD REANNA [facility] [address] [address] 05/13/2023 08:11:11 05/13/2023 09:10:22 Osteoarthritis of right knee joint 2917889870 85852 M17.11 Additional diagnosis detail: Primary osteoarthr itis of right knee [id number] MD REANNA Barrios [facility] [address] [address] 07/22/2023 09:59:01 07/22/2023 10:47:09 Osteoarthritis of right glenohumeral joint 2610179458 761939 M19.011 Osteoarthr itis of left glenohumeral joint 4681187661 584054 M19.012 Osteoarthr itis of bilateral glenohumeral joints 7952619661 331866 M19.011 M19.012 Additional diagnosis detail: Osteoarthr itis of both glenohumer al joints [id number] MD REANNA Cyrmary anne [address] [address] 08/20/2023 09:46:12 08/20/2023 10:24:29 Osteoarthritis of right knee joint 2351931644 06419 M17.11 Additional diagnosis detail: Primary osteoarthr itis of right knee Health Concerns Section Related Observation LastModified by Organization Detai ls LastModified Time None Recorded Concern Status LastModified by Organization Details LastModified Time None Recorded Advance Directives Directive None Recorded Payers Encounter Date Sequence Insurance Name Policy Number Policy Pineda Covered Member ID Pineda Member ID Guarantor Name 02/25/2023 1 [facility] - DOS ON OR AFTER 2022 - ONE CARE (MEDICARE REPLACEMENT/ADV ANTAGE - HMO) Nayla Lepe [id number] Nayla Lepe 04/22/2023 1 [facility] - DOS ON OR AFTER 2022 - ONE CARE (MEDICARE REPLACEMENT/ADV ANTAGE - HMO) Nayla Lepe [id number] Nayla Lepe 05/13/2023 1 [facility] - DOS ON OR AFTER 2022 - ONE CARE (MEDICARE REPLACEMENT/ADV ANTAGE - HMO) Nayla Lepe [id number] Nayla Lepe 07/22/2023 1 [facility] - DOS ON OR AFTER 2022 - ONE CARE (MEDICARE REPLACEMENT/ADV ANTAGE - HMO) Nayla Lepe [id number] Nayla Lepe 08/20/2023 1 [facility] - DOS ON OR AFTER 2022 - ONE CARE (MEDICARE REPLACEMENT/ADV ANTAGE - HMO) Nayla Lepe [id number] Nayla Lepe Notes Date Note Type Note Provider Name and Address Organization Details Recorded Time 02/25/2023 text/html Pleasant 59-year -old female osteoarthritis of the right knee last cortisone injection was on 11/24/2022. Her pain is medial nature that is worse with walking. She has no other complaints at today's visit. LOVELY COATS PA-C [address] [place] [address],[facility] [address], [place], [address], [place] [facility] 02/25/2023 10:46:11 04/22/2023 text/html BL shoulders. cortisone 01/21/2023 Pleasant 68-year-old female history of bilateral shoulder pain history of glenohumeral arthritis as well as stiffness due to cerebral palsy. She denies any falls here for bilateral cortisone injections of the shoulders. Denies recent or current illness LOVELY COATS PA-C [address] [facility],[address] [facility], [place], [address], [place] [facility] 04/22/2023 09:51:36 05/13/2023 text/html 68-year-old kelli hendricks presents with recent recurrence of pain at the right knee. She is known to have osteoarthritis of the knee. She gets cortisone injections periodically which have continued to be effective at giving her meaningful relief of her pain. She requests a cortisone injection into the right knee today LOVELY NEWELL PA-C [address] [facility],[address] [facility], [place], [address], [place] [facility] 05/13/2023 08:50:30 07/22/2023 text/html This is a 68-year-old ajafd-vaye-waoybohq female who is presenting with chronic bilateral [...] is very active and goes to the [employer] gym. When she is having pain, she takes Motrin which does help. She does not desire surgical intervention and would like steroid injections today. Lachelle Park MD [address] [facility],[address] [address], [place], [address], [place] [facility] 07/22/2023 11:14:59 08/20/2023 text/html 68-year-old kelli [...] since the fall. LOVELY NEWELL PA-C [address] [facility],[address], [place], [address], [place] [facility] 08/20/2023 10:26:10 OBGyn Episode No OBEpisode recorded.
== END 2024-03-23 09:04 | disposition home or self-care (01) ==
PROVIDERS: PCP Physician Assistant; Visit Provider Orthopaedic Surgery
DX: M17.0 Bilateral primary osteoarthritis of knee (principal)
CPT/HCPCS: 20610; 99213

== ENCOUNTER → 2024-03-23 08:32 | Outpatient (BNVA) | payer OTHER, SELFPAY | PROVIDERS: PCP Physician Assistant; Visit Provider Orthopaedic Surgery | DX: M17.0 Bilateral primary osteoarthritis of knee (principal) | CPT/HCPCS: 20610; 99212; J1010; J2003 ==

== ENCOUNTER 2024-04-11 08:04 | Outpatient (AMB) | payer OTHER, SELFPAY ==
--- NOTE | 2024-04-11 08:13 | A.OFFVIS_ITS ---
Vital Signs 04/11/24 08:19 Height 5 ft 5 in Weight 146 lb BMI 24.3 Intake Visit Reasons: Bilateral shoulder pains Intake Note: Nayla is a 69 year old female who presents with complaints of bilateral shoulder pains. She describes her pains as sharp in nature. She did have cortisone injections given into her shoulders last year. She got fairly good relief from the injections. She continues with her home stretching program. She wishes to hold off on surgery if at all possible. Allergies No Known Allergies [No Known Allergies*] Allergy (Verified 04/11/24 08:19) Medication List - Last Reconciled 04/11/24 by Eric Roldan MD acetaminophen ER 650 mg PO Q12H 30 days albuterol sulfate 2.5 mg inhalation Q4H PRN amlodipine (Norvasc) 5 mg PO DAILY anastrozole (Arimidex) 1 tab PO DAILY cyanocobalamin (vitamin B-12) (Vitamin B-12) 1,000 mcg PO DAILY docusate sodium (Colace) 100 mg PO BID 30 days fluticasone propion-salmeterol 100-50 mcg/dose (Wixela Inhub) 1 inh inhalation BID 30 days gabapentin 900 mg (3 x 300 mg) PO TID ibuprofen 800 mg PO Q12H PRN 30 days [kotex pads As directed] lisinopril 20 mg PO DAILY 90 days montelukast 10 mg PO BEDTIME 90 days omeprazole 20 mg PO DAILY 30 days ondansetron 1 tab PO Q6H PRN paroxetine HCl ER 12.5 mg PO DAILY Paxil CR (paroxetine HCl) 50 mg (2 x 25 mg) PO DAILY NS Paxil CR (paroxetine HCl) 12.5 mg PO DAILY NS prednisone 10 mg PO DIRECTED 9 days [shower chair As directed] simethicone 180 mg PO BID 30 days [toilet arms As directed] [wipes As directed] [facility] Medical History Colonic stricture Frequent falls Hx of flexible sigmoidoscopy Elevated platelet count Colonic stricture Breast CA Prolapse of intestine Rectal prolapse Invasive lobular carcinoma of breast in female Asthma MDD (major depressive disorder) Surgical History History of gastric surgery History of lumpectomy of right breast History of open sigmoidectomy Family History Father Family history unknown Mother Breast cancer Brother No problems noted. Sister History of leukemia Social History Household Members: None Housing: Apartment Are you a primary customer care coordinator to a significant other at home: No Do you presently have visiting nurse or other home services: Yes Alcohol intake: former Patient Tobacco Use Status: Never used Tobacco e-Cigarette/Vaping Use: Never Used Second Hand Smoke Exposure: No Advance Directives Date on File: 09/01/21 service: No Current occupational status: retired Cognitive needs: Yes (walker) Hearing needs: No Vision needs: Yes (reading glasses) Physical Exam Vital Signs: BMI result Body Mass Index 24.3 Const Other: Well-nourished well-developed very friendly female awake alert and oriented x3 in no acute distress Extrem Other: Bilateral upper extremity examination shows good capillary refill, no skin lesions noted, normal sensation light touch Bilateral shoulder examination shows forward flexion to 150 degrees, external rotation to 30 degrees, internal rotation to 30 degrees, positive impingement signs, no instability Office Procedures AMB Joint Injection/Aspiration Joint Injection/Aspiration Primary Site: left shoulder Prep: site was prepped using aseptic technique Injected: 40 mg of, DepoMedrol and 1% plain lidocaine Procedure: The patient tolerated the procedure well Coding 11394 - Large joint Procedure code (CPT) selection complete AMB Joint Injection/Aspiration Joint Injection/Aspiration Primary Site: right shoulder Prep: site was prepped using aseptic technique Injected: 40 mg of, DepoMedrol and 1% plain lidocaine Procedure: The patient tolerated the procedure well Coding 74459 - Large joint Procedure code (CPT) selection complete Assessment & Plan Assessment & Plan (1) Impingement syndrome of left shoulder: Code(s): M75.42 - Impingement syndrome of left shoulder Category: Medical (2) Impingement of right shoulder: Code(s): M25.811 - Other specified joint disorders, right shoulder Category: Medical Plan Ms. Lepe presents with bilateral shoulder pains due to impingement syndrome as well as degenerative joint disease. The risks and benefits of bilateral shoulder cortisone injections were discussed at length with the patient. The patient wished to proceed. She tolerated the injections well. She will continue with her home stretching program to prevent stiffness. She will contact me prior to her follow-up appointment in 3 months should any questions or concerns arise. Feel free to call me at any time should questions regarding her orthopedic management arise. I spent 21 minutes in reviewing the patient's records and imaging studies, seeing the patient and documenting in the medical record. Orders: Orders AMB Joint Injection/Aspiration Today M25.811 - Other specified joint disorders, right shoulder AMB Joint Injection/Aspiration Today M75.42 - Impingement syndrome of left shoulder Coding Level of Care Code Est Pt Level 3 (97975) Complex EM visit Add On G2211 Diagnoses Impingement syndrome of left shoulder M75.42 Impingement of right shoulder M25.811 CPT Codes Coding - 79387 Large joint: 74611 - Large joint (5019160045) Coding - 18397 Large joint: 09563 - Large joint ([id number])
--- OUTSIDE RECORDS SUMMARY | 2024-04-11 08:14 | XMS_ITS | Patient Health Record ---
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
--- OUTSIDE RECORDS SUMMARY | 2024-04-11 08:14 | XMS_ITS | Data Portability ---
Author Organization [employer] Address [address] [place] [address] Care Team Providers Care Quality Management Nurse Name Role Phone [facility] Referring Provider Assessment Encounter Date Assessment Date Assessment LastModified by Organization Details LastModified Time 03/17/2022 03/17/2022 As noted, we were called to see this patient regarding concerns of low back pain and muscle spasms after recent fall.. Evaluation in the field was performed by my site specialist colleague, as noted above, I provided real-time [...] Robaxin-75 0 750 mg tablet 2022 023 [facility] [place], [address], 3 10:40:44 lidocaine 5 % topical patch 2022 023 [facility], [address] [facility], [place], [address], 3 10:40:43 Patient TargetsNo targets recorded. Patient [...] [id number] Asif Cloud MD Main - [facility] [address] [place] [phone] 03/17/2022 10:37:40 03/19/2022 12:17:58 Low back pain 373770770 M54.50 Health Concerns Section Related Observation LastModified by Organization Detai ls LastModified Time None Recorded Concern Status LastModified by Organization Details LastModified Time None Recorded Advance Directives Directive None Recorded Payers Encounter Date Sequence Insurance Name Policy Number Policy Pineda Covered Member ID Pineda Member ID Guarantor Name 03/17/2022 1 [facility] - DOS PRIOR TO 2022 - DUAL ELIGIBLE (MEDICARE REPLACEMENT/ADV ANTAGE - HMO) Nayla Lepe [id number] Nayla Lepe Notes Date Note Type Note Provider Name and Address Organization Details Recorded Time 03/17/2022 text/html [facility] Nursing Assessment: Reason For Request: Pain Patient Reports: Weakness with fall, able to move all extremities Chief Complaints: Falls, Pain PMH: COPD/Asthma, Hypertension, Cancer Allergies: No Known Comments: Member requesting [facility] visit. Member is s/p fall 2 [...] ................... ................... ................... ................... ................... ................... ........ Cupola Tender Note From Carie Hall: Dispatched to the [...] no constant pain, pt ambulating wo issue, [facility] and [facility] discussed and prescriptions call to pharmacy ................... ................... ................... ................... ................... ................... ................... ........ Disposition: Fulfilled Asif Cloud MD [address] [facility],[address], [place], [address], [facility] 03/17/2022 11:01:25 OBGyn Episode No OBEpisode recorded.
--- OUTSIDE RECORDS SUMMARY | 2024-04-11 08:14 | XMS_ITS | Data Portability ---
Author Organization [place] [facility] Nadeen Stoll AONE [place] Address [address] [facility] [address] [place] [address] Care Team Providers Care Shake Splitter Name Role Phone JEANCARLOS KENNEDY Primary Care Provider JEANCARLOS KENNEDY Referring Provider [phone] JEANCARLOS KENNEDY Primary Care Provider [phone] Assessment Encounter Date Assessment Date Assessment LastModified [...] more view 2023 024 [email or web address] [facility], [address], [place], [address], 4 10:53:14 XR, shoulder , 2 or more view 2023 024 [facility], [address], [place], [address], 4 13:06:37 XR, shoulder , 2 or more view 2023 024 [facility], [address], [place], [address], 4 13:06:37 Medication Orders lidocain e (PF) 10 mg/mL (1 %) injectio n solution [email or web address] [place] [address] [id number], [address] [place], [place], [id number], 4 10:13:47 triamcin olone acetonid e 40 mg/mL suspensi on for injectio n [address] [facility]25319, [address] [place], [place], [id number], 4 10:13:59 Marcaine (PF) 0.5 % (5 mg/mL) injectio n solution [address] [facility]31867, [address] [place], [place], [id number], 4 10:13:53 lidocain e (PF) 100 mg/5 mL (2 %) injectio n syringe [address] [facility] #23524, [address], [place], [id number], 4 10:13:50 triamcin olone acetonid e 40 mg/mL suspensi on for injectio n [address] [facility] #80429, [address], [place], [id number], 4 10:13:59 Kenalog 40 mg/mL suspensi on for injectio n [address] [facility]53653, [address] [place], [place], [id number], 4 10:13:59 lidocain e (PF) 10 mg/mL (1 %) injectio n solution [address] [facility] #85867, [address] [place], [place], [id number], 4 10:13:47 Kenalog 40 mg/mL suspensi on for injectio n [address] [facility]02506, [address], [place], [id number], 4 10:13:59 lidocain e (PF) 10 mg/mL (1 %) injectio n solution [address] [facility] #98352, [address], [place], [id number], 4 10:13:47 Kenalog 40 mg/mL suspensi on for injectio n [address] [facility] #25995, [address], [place], [id number], 4 10:13:59 lidocain e (PF) 10 mg/mL (1 %) injectio n solution [address] [facility]07317, [address], [place], [id number], 4 10:13:47 Patient TargetsNo targets recorded. Patient Instructions Encounter Date Encounter Id Patient Instructions Last Modified By Organization Details Last Modified Time 02/25/2023 [id number] You have been provided with a cortisone [...] office or contact us through the portal [facility]. Not available 02/25/2023 10:45:46 04/22/2023 [id number] You have been provided with a cortisone [...] office or contact us through the portal [facility]. Not available 04/22/2023 09:49:35 07/22/2023 [id number] You have been provided with a cortisone [...] the bones. Not available 07/22/2023 11:13:41 08/20/2023 [id number] {{2 3 4 5 6 7* 8 [...] Osteoarthri tis of right glenohumera l joint 7226312124425 101 Active 2022 LOVELY COATS PA-C [address], [place], [address], [place] [facility] 3 10:35:14 Osteoarthri tis of left glenohumera l joint 0949761109768 104 Active 2022 LOVELY COATS PA-C [address], [place], [address], [place] [facility] 3 10:35:19 Osteoarthri tis of right knee joint 7877409820474 00 Active 2022 LOVELY COATS PA-C [address], [place], [address], [place] [facility] 3 11:23:10 Pain of right shoulder joint 0591207538478 9100 Active 2022 LOVELY COATS PA-C [address], [place], [address], [place] [facility] P 3 07:50:39 Pain of left shoulder joint 8642728834057 9109 Active 2022 LOVELY COATS PA-C [address], [place], [address], [place] [facility] P 3 07:50:39 Arthritis of joint of right shoulder region 3671480370220 101 Active 2022 LOVELY COATS PA-C [address], [place], [address], [place] [facility] 3 09:58:21 Arthritis of joint of left shoulder region 2755449714712 106 Active 2022 LOVELY COATS PA-C [address], [place], [address], [place] [facility] P 3 09:58:30 Problem Notes None recorded. Procedures Surgical History Date Name Laterality Status Provider Name and Address Organization Details Recorded Time 07/22/19 24 LES Shoulder Interarticular Inj completed Lachelle Park MD [address], [place], [address], [place] [facility] 07/22/2023 11:12:25 05/13/19 24 MJG Knee injection w/US completed LOVELY NEWELL PA-C [address], [place], [address], [place] [facility] 05/13/2023 08:49:56 04/22/19 24 Knee Joint/Bursa Asp & Inj completed LOVELY COATS PA-C [address], [place], [address], [place] [facility] 04/22/2023 09:49:34 02/25/19 24 Knee Joint/Bursa Asp & Inj completed LOVELY COATS PA-C [address], [place], [address], [place] [facility] 02/25/2023 10:44:49 01/22/20 23 Knee Joint/Bursa Asp & Inj completed LOVELY COATS PA-C [address], [place], [address], [place] [facility] 01/21/2023 09:39:57 11/25/19 23 Knee Joint/Bursa Asp & Inj completed LOVELY COATS PA-C [address], [place], [address], [place] [facility] 11/24/2022 10:01:30 10/21/19 23 Knee Joint/Bursa Asp & Inj completed LOVELY COATS PA-C [address], [place], [address], [place] [facility] 10/20/2022 07:50:46 08/04/19 23 Knee Joint/Bursa Asp & Inj completed LOVELY COATS PA-C [address], [place], [address], [place] [facility] 08/03/2022 07:56:34 07/28/19 23 Knee Joint/Bursa Asp & Inj completed LOVELY COATS PA-C [address] [facility], [place], [address], [place] [facility] 07/27/2022 07:52:16 04/29/19 23 Shoulder Joint/Bursa Asp & Inj completed LOVELY COATS PA-C [address] [facility],[address], [place], [address], [place] [facility] 04/28/2022 10:09:22 Imaging Results None recorded. [...] Updated DateTime 08/20/2023 160.02 cm 24.8 kg/m2 35815.93 g Cortney Ch MD - [facility], 08/20/2023 10:14:05 Social History Question Answer Notes LastModified by Organizat ion Details LastModified Time Tobacco Smoking Status Never Smoker Elsa [place] david MD - [facility], 11/24/2022 09:59:31 What Is Your Level Of [...] Code Diagnosis Note [id number] MD REANNA Riggins [address] [place] [address] 04/28/2022 09:30:33 04/28/2022 10:29:26 Arthritis of joint of right shoulder region 4174155884 068300 M13.811 Arthritis of joint of left shoulder region 5736209720 540133 M13.812 [id number] MD REANNA Cyrmary anne [address] [facility] [address] [place] [address] 07/27/2022 09:47:19 07/27/2022 11:53:09 Pain of right shoulder joint 6180201822 5597377 M25.511 Pain of le ft shoulder joint 1962330021 3583267 M25.512 Osteoarthr itis of right glenohumeral joint 4728490670 255017 M19.011 Osteoarthr itis of left glenohumeral joint 3638235797 679393 M19.012 [id number] [facility] [address] [address] 08/03/2022 10:27:28 08/03/2022 10:51:12 Osteoarthritis of right knee joint 9388299651 49991 M17.11 [id number] [facility] [address] [address] 10/20/2022 09:38:49 10/20/2022 10:17:16 Pain of right shoulder joint 5273754887 6241758 M25.511 Pain of le ft shoulder joint 6304623138 3947736 M25.512 Osteoarthr itis of right glenohumeral joint 9882830866 203381 M19.011 Osteoarthr itis of left glenohumeral joint 7807179989 225734 M19.012 [id number] MD [facility] [address] [address] 11/24/2022 09:47:12 11/24/2022 10:11:10 Osteoarthritis of right knee joint 6317136619 98928 M17.11 [id number] [facility] [address] [address] 01/21/2023 10:09:04 01/21/2023 10:45:39 Pain of right shoulder joint 4197354566 1652069 M25.511 Pain of le ft shoulder joint 1569227186 9405204 M25.512 Osteoarthr itis of right glenohumeral joint 9283639681 256413 M19.011 Osteoarthr itis of left glenohumeral joint 0074919961 859499 M19.012 [id number] MD REANNA Cyrmary anne [address] [address] 02/25/2023 10:20:02 02/25/2023 10:56:29 Osteoarthritis of right knee joint 9620959968 77764 M17.11 [id number] [facility] [address] [address] 04/22/2023 09:10:12 04/22/2023 09:55:26 Pain of right shoulder joint 0242877459 1176447 M25.511 Pain of le ft shoulder joint 3634570308 9832225 M25.512 Osteoarthr itis of right glenohumeral joint 8788092014 614763 M19.011 Osteoarthr itis of left glenohumeral joint 3350429007 882521 M19.012 [id number] MD [facility] [address] [address] 05/13/2023 08:11:11 05/13/2023 09:10:22 Osteoarthritis of right knee joint 7802996520 57541 M17.11 Additional diagnosis detail: Primary osteoarthr itis of right knee [id number] [facility] [address] [address] 07/22/2023 09:59:01 07/22/2023 10:47:09 Osteoarthritis of right glenohumeral joint 5180832870 782120 M19.011 Osteoarthr itis of left glenohumeral joint 6302810659 406592 M19.012 Osteoarthr itis of bilateral glenohumeral joints 6986462471 575114 M19.011 M19.012 Additional diagnosis detail: Osteoarthr itis of both glenohumer al joints [id number] MD REANNA Cyrmary anne [address] [address] 08/20/2023 09:46:12 08/20/2023 10:24:29 Osteoarthritis of right knee joint 6495972649 14883 M17.11 Additional diagnosis detail: Primary osteoarthr itis of right knee Health Concerns Section Related Observation LastModified by Organization Detai ls LastModified Time None Recorded Concern Status LastModified by Organization Details LastModified Time None Recorded Advance Directives Directive None Recorded Payers Encounter Date Sequence Insurance Name Policy Number Policy Pineda Covered Member ID Pineda Member ID Guarantor Name 02/25/2023 1 [facility] [employer] - DOS ON OR AFTER 2022 - ONE CARE (MEDICARE REPLACEMENT/ADV ANTAGE - HMO) Nayla Lepe [id number] Nayla Lepe 04/22/2023 1 [facility] [employer] - DOS ON OR AFTER 2022 - ONE CARE (MEDICARE REPLACEMENT/ADV ANTAGE - HMO) Nayla Lepe [id number] Nayla Lepe 05/13/2023 1 [facility] - DOS ON OR AFTER 2022 - ONE CARE (MEDICARE REPLACEMENT/ADV ANTAGE - HMO) Nayla Lepe [id number] Nayla Lepe 07/22/2023 1 [facility] - DOS ON OR AFTER 2022 - ONE CARE (MEDICARE REPLACEMENT/ADV ANTAGE - HMO) Nayla Lepe [id number] Nayla Lepe 08/20/2023 1 [facility] [employer] - DOS ON OR AFTER 2022 - ONE CARE (MEDICARE REPLACEMENT/ADV ANTAGE - HMO) Nayla Lepe [id number] Nayla Lepe Notes Date Note Type Note Provider Name and Address Organization Details Recorded Time 02/25/2023 text/html Pleasant 59-year -old female osteoarthritis of the right knee last cortisone injection was on 11/24/2022. Her pain is medial nature that is worse with walking. She has no other complaints at today's visit. LOVELY COATS PA-C [address] [place] [address],[facility] [address], [place], [address], [place] [facility] 02/25/2023 10:46:11 04/22/2023 text/html BL shoulders. cortisone 01/21/2023 Pleasant 68-year-old female history of bilateral shoulder pain history of glenohumeral arthritis as well as stiffness due to cerebral palsy. She denies any falls here for bilateral cortisone injections of the shoulders. Denies recent or current illness LOVELY COATS PA-C [address] [facility],[address] [facility], [place], [address], [place] [facility] 04/22/2023 09:51:36 05/13/2023 text/html 68-year-old kelli hendricks presents with recent recurrence of pain at the right knee. She is known to have osteoarthritis of the knee. She gets cortisone injections periodically which have continued to be effective at giving her meaningful relief of her pain. She requests a cortisone injection into the right knee today LOVELY NEWELL PA-C [address] [facility],[address] [facility], [place], [address], [place] [facility] 05/13/2023 08:50:30 07/22/2023 text/html This is a 68-year-old [id number] female who is presenting with chronic bilateral [...] is very active and goes to the [email or web address] gym. When she is having pain, she takes Motrin which does help. She does not desire surgical intervention and would like steroid injections today. Lachelle Park MD [address] [facility],[address] [address], [place], [address], [place] [facility] 07/22/2023 11:14:59 08/20/2023 text/html 68-year-old kelli [...] since the fall. LOVELY NEWELL PA-C [address] [facility],[address], [place], [address], [place] [facility] 08/20/2023 10:26:10 OBGyn Episode No OBEpisode recorded.
--- OUTSIDE RECORDS SUMMARY | 2024-04-11 08:14 | XMS_ITS | Clinical Summary ---
Author Organization [facility] Facility Address [address] [address] Care Team Providers Care Electronic Controls Repairer Supervisor Name Role Phone Polo Nascimento Primary Care Provider [phone] Social History Tobacco Use Types Packs/Day Years [...] patient's age to complete this topic Insurance [facility] Care Teams Electronic Controls Repairer Supervisor Relationship Specialty Start Date End Date Polo Nascimento PA [address] [facility], [address] [place] [address] PCP - General Physician Assistant Toddler Teacher 06/30/21
--- OUTSIDE RECORDS SUMMARY | 2024-04-11 08:14 | XMS_ITS | Clinical Summary ---
Author Organization [facility] Address [address] [place] [address] Care Team Providers Care Remote Control Assembler Name Role Phone AnaLanden Primary Care Provider [...] age to complete this topic Care Teams Remote Control Assembler Relationship Specialty Start Date End Date Landen Perez DO [address] [place] [address] PCP - General 10/20/16
[2024-04-11 08:19] VITALS: BMI 24.3
== END 2024-04-11 08:46 | disposition home or self-care (01) ==
PROVIDERS: PCP Physician Assistant; Visit Provider Orthopaedic Surgery
DX: M75.42 Impingement syndrome of left shoulder (principal); M25.811 Other specified joint disorders, right shoulder
CPT/HCPCS: 20610; 99213

== ENCOUNTER → 2024-04-11 08:04 | Outpatient (BNVA) | payer OTHER, SELFPAY | PROVIDERS: PCP Physician Assistant; Visit Provider Orthopaedic Surgery | DX: M75.42 Impingement syndrome of left shoulder (principal); M25.811 Other specified joint disorders, right shoulder | CPT/HCPCS: 20610; 99212; J1010; J2003 ==

== ENCOUNTER 2024-04-14 08:50 | Outpatient (AMB) | payer OTHER, SELFPAY ==
--- NOTE | 2024-04-14 08:54 | A.OFFVIS_ITS ---
Vital Signs 04/14/24 09:00 Height 5 ft 5 in Weight 151 lb 2 oz BMI 25.1 BP 178/99 H Blood Pressure Location Lt brachial Position Sitting Pulse 72 Intake Visit Reasons: 6 month follow up breast exam Intake Note: Patient is seen in office for 6 month follow up visit, breast exam. Patient c/o: denies any changes or concerns regarding the breast mm:03/13/24 Wedding Consultant Required: No Housekeeper Cleaning Cooking: Housekeeper Cleaning Cooking Present Accompanied by: Self / Same As Patient Allergies No Known Allergies [No Known Allergies*] Allergy (Verified 04/14/24 09:00) Medication List - Last Reconciled 04/14/24 by Manuel Jose MD acetaminophen ER 650 mg PO Q12H 30 days albuterol sulfate 2.5 mg inhalation Q4H PRN amlodipine (Norvasc) 5 mg PO DAILY anastrozole (Arimidex) 1 tab PO DAILY cyanocobalamin (vitamin B-12) (Vitamin B-12) 1,000 mcg PO DAILY docusate sodium (Colace) 100 mg PO BID 30 days fluticasone propion-salmeterol 100-50 mcg/dose (Wixela Inhub) 1 inh inhalation BID 30 days gabapentin 900 mg (3 x 300 mg) PO TID ibuprofen 800 mg PO Q12H PRN 30 days [kotex pads As directed] lisinopril 20 mg PO DAILY 90 days montelukast 10 mg PO BEDTIME 90 days omeprazole 20 mg PO DAILY 30 days ondansetron 1 tab PO Q6H PRN paroxetine HCl ER 12.5 mg PO DAILY Paxil CR (paroxetine HCl) 50 mg (2 x 25 mg) PO DAILY NS Paxil CR (paroxetine HCl) 12.5 mg PO DAILY NS prednisone 10 mg PO DIRECTED 9 days [shower chair As directed] simethicone 180 mg PO BID 30 days [toilet arms As directed] [wipes As directed] HPI Comments Details: 69-year-old female patient former patient of Dr. Wu, presenting for breast cancer follow-up examination.? She was noted to have an area of architectural distortion in the 9 o'clock position of the right breast, evaluated by mammogram on February 2019 confirmed by ultrasound as an ill-defined hypoechoic area in the 10 o'clock position, 7 cm from the nipple.? An ultrasound-guided core biopsy revealed invasive ductal carcinoma grade 2 ER/OR positive, HER2 Jon negative.? She underwent lumpectomy with sentinel node biopsy on 03/16/2019.? Pathology revealed a 0.9 cm invasive lobular carcinoma, grade 2 with negative margins.? Two sentinel nodes were negative for carcinoma.? She underwent radiation therapy which was completed in May 2019.? She was started on letrozole 2.5 mg daily.? This was subsequently switched to Arimidex 1 mg p.o. daily (Dr. Pinedo). She subsequent developed a rectal prolapse recurrence and required a sigmoid resection with rectopexy.? Routine screening mammogram performed on 03/13/2024 revealed no mammographic evidence of malignancy (BI-RADS 2). She feels well but does complain of shoulder and knee pain from arthritis. [facility] Medical History Colonic stricture Frequent falls Hx of flexible sigmoidoscopy Elevated platelet count Colonic stricture Breast CA Prolapse of intestine Rectal prolapse Invasive lobular carcinoma of breast in female Asthma MDD (major depressive disorder) Surgical History History of gastric surgery History of lumpectomy of right breast History of open sigmoidectomy Family History Father Family history unknown Mother Breast cancer Brother No problems noted. Sister History of leukemia Social History Household Members: None Housing: Apartment Are you a primary resident care supervisor to a significant other at home: No Do you presently have visiting nurse or other home services: Yes Alcohol intake: former Patient Tobacco Use Status: Never used Tobacco e-Cigarette/Vaping Use: Never Used Second Hand Smoke Exposure: No Advance Directives Date on File: 09/01/21 service: No Current occupational status: retired Cognitive needs: Yes (walker) Hearing needs: No Vision needs: Yes (reading glasses) Review of Systems Const All systems reviewed & are unremarkable except as noted in HPI and below Denies chills, Denies fever(s) and Denies weight gain ENT Reports no additional complaints Card Reports no additional complaints Resp Reports no additional complaints GI Reports as per HPI Denies nipple discharge Skin/Breast Denies breast swelling, Denies breast skin changes, Denies breast pain, Denies breast mass, Denies change in breast shape, Denies change in pigmentation, Denies new lesions and Denies nipple discharge Mir/Lymph Denies lymphadenopathy Physical Exam Vital Signs: Last Vital Signs Pulse 72 04/14/24 09:00 BP 178/99 H 04/14/24 09:00 BMI result Body Mass Index 25.1 Const General: cooperative, comfortable and no acute distress HEENT Head: Yes normocephalic and Yes atraumatic Ears: hearing grossly normal bilaterally Chest Other: Left breast: No skin change, no nipple retraction, no nipple discharge, no palpable mass, no enlarged lymph nodes. Right breast: No skin change, no nipple retraction, no nipple discharge, no palpable mass, no enlarged lymph nodes Resp Effort & Inspection: normal respiratory effort GI Inspection: Yes normal to inspection Palpation (GI): Soft to palpation, nontender, no guarding and not rigid Rectal Exam - Female: No deferred Skin General skin exam: no rashes or lesions noted Neuro Other: Mobility Assessment: 1. 3 meter assessment time (seconds) 10 2. Gait observations: short strides Extrem General: Yes no clubbing, cyanosis or edema Assessment & Plan Assessment & Plan (1) Invasive lobular carcinoma of breast in female: Comment: right Code(s): C50.919 - Malignant neoplasm of unspecified site of unspecified female breast Category: Medical Plan 69-year-old female patient with previous history of right breast lumpectomy and sentinel node biopsy for infiltrating ductal carcinoma on 03/16/2019. She feels well and denies any new breast problems. Breast examination today reveals no suspicious findings in either breast. Her latest mammogram performed on 03/13/2024 revealed no mammographic evidence of malignancy in either breast (BI- RADS 2). I recommended follow-up examination in 6 months, sooner p.r.n.. Coding Level of Care Code Est Pt Level 3 (17153) Complex EM visit Add On G2211 Diagnoses Invasive lobular carcinoma of breast in female C50.919
[2024-04-14 09:00] VITALS: BP 178/99; PULSE 72; BMI 25.1
--- OUTSIDE RECORDS SUMMARY | 2024-04-14 09:25 | XMS_ITS | Patient Health Record ---
Author Organization [facility] Address [address] [place] [address] Care Team Providers Care Call Center Nurse Name Role Phone Polo Nascimento Primary Care Provider Unavailab Tin Arechiga Unavailable [phone] Reason For Referral No Information Problems Problem Type SNOMED Code ICD Code Onset Dates Problem Status W/U Status Risk Notes Problem Gastrointestinal anastomotic stricture (289526797) Gastrointestinal anastomotic stricture (K91.30) Active confirmed Plan Of Treatment Future Test Test Name Order Date FLEXIBLE SIGMOIDOSCOPY, DIAGNOSTIC 07/04 FLEXIBLE SIGMOIDOSCOPY, DIAGNOSTIC 07/22 FLEXIBLE SIGMOIDOSCOPY, DIAGNOSTIC 08/17 Insurance Providers Payer Name Payer Address Payer Phone Subscriber Number Group Number Insured Name Patient Relationship to Insured Coverage Start Date Coverage End Date [facility] [address] [place] [address] [id number] YADIRA LAMBERT Self - patient is the insured
--- OUTSIDE RECORDS SUMMARY | 2024-04-14 09:25 | XMS_ITS | Clinical Summary ---
Author Organization [facility] Facility Address [address] [address] Care Team Providers Care Hosiery Mender Name Role Phone Polo Nascimento Primary Care Provider [phone] Social History Tobacco Use Types Packs/Day Years [...] patient's age to complete this topic Insurance [facility] Care Teams Hosiery Mender Relationship Specialty Start Date End Date Polo Nascimento PA [address] [facility], [address] [place] [address] PCP - General Physician Arterial Embalmer 06/30/21
--- OUTSIDE RECORDS SUMMARY | 2024-04-14 09:26 | XMS_ITS | Clinical Summary ---
Author Organization [facility] Address [address] [place] [address] Care Team Providers Care Supervisor Twisting Department Name Role Phone AnaLanden Primary Care Provider [phone] Allergies No known active allergies Medications Medication [...] age to complete this topic Care Teams Supervisor Twisting Department Relationship Specialty Start Date End Date Landen Perez DO [address] [place] [address] PCP - General 10/20/16
== END 2024-04-14 09:15 | disposition home or self-care (01) ==
PROVIDERS: PCP Physician Assistant; Visit Provider Surgery
DX: C50.919 Malignant neoplasm of unspecified site of unspecified female breast (principal)
CPT/HCPCS: 99213; G2211

== ENCOUNTER → 2024-04-14 08:50 | Outpatient (BNVA) | payer OTHER, SELFPAY | PROVIDERS: PCP Physician Assistant; Visit Provider Surgery | DX: Z80.3 Family history of malignant neoplasm of breast (principal) | CPT/HCPCS: 99212 ==

== ENCOUNTER 2024-05-05 08:27 | Outpatient (REF) | payer OTHER, SELFPAY ==
[2024-05-05 09:07] LABS: Hematocrit 38.7 % (37.0-47.0); Hemoglobin 12.8 g/dl (12.0-16.0); Mean Corpuscular HGB Conc 33.1 g/dl (31.0-35.0); Mean Corpuscular Hemoglobin 28.8 pg (27.0-33.0); Mean Corpuscular Volume 87.2 fL (80.0-98.0); Mean Platelet Volume 9.7 fL (9.4-12.3); Platelet Count 220 X10*3/uL (160-400); Red Blood Count 4.44 X10*6/uL (4.20-5.50); Red Cell Distribution Width 13.4 % (11.0-16.0); White Blood Count 4.5 X10*3/uL (4.8-10.8)
[2024-05-05 09:37] LABS: Alanine Aminotransferase 15 U/L (0-31); Albumin Level 4.1 g/dL (3.5-5.0); Alkaline Phosphatase 39 U/L (39-117); Anion Gap 10 (12-20); Aspartate Amino Transferase 20 U/L (5-31); Bilirubin Total 0.4 mg/dL (0.0-1.0); Blood Urea Nitrogen 21 mg/dL (9-16); Calcium 9.3 mg/dL (8.4-10.2); Carbon Dioxide 24 mmol/L (22-29); Chloride 112 mmol/L (96-108); Estimated Glomerular Filt Rate > 60; Glucose Fasting 109 mg/dL (60-99); Iron 71 mcg/dL (30-160); Percent Iron Saturation 27 % (15-50); Potassium 4.3 mmol/L (3.3-5.1); Sodium 142 mmol/L (135-145); Total Iron Binding Capacity 263 mcg/dL (228-428); Total Protein 6.6 g/dL (6.5-8.0); Unsaturated Iron Binding 192 ug/dL
== END 2024-05-05 08:28 | disposition home or self-care (01) ==
LOC: HO.LAB 08:27
PROVIDERS: PCP Physician Assistant; Visit Provider Physician Assistant
DX: D64.9 Anemia, unspecified (principal); D50.9 Iron deficiency anemia, unspecified; Z13.1 Encounter for screening for diabetes mellitus
CPT/HCPCS: 36415; 80053; 83540; 85027

== ENCOUNTER 2024-05-15 10:01 | Outpatient (AMB) | payer OTHER, SELFPAY ==
--- NOTE | 2024-05-15 10:04 | A.OFFPC_ITS ---
Vital Signs 05/15/24 10:08 Height 5 ft 5 in Weight 148 lb 4 oz BMI 24.7 BP 120/76 Blood Pressure Location Lt brachial Position Sitting Pulse 71 Pulse Source Pulse Oximeter Temp 97.1 F Temp Source Temporal Artery Scan Pulse Oximetry (%) 96 Oxygen Delivery Method Room Air Intake Visit Reasons: Cataract Surgery on 05/25 and 06/05 Intake Note: Patient is here for a Pre-op for Cataract surgery scheduled with Dr Chandra on 05/22 and 06/05. Singing Telegram Performer Required: No Elevator Installer: Not Required per policy Accompanied by: Self / Same As Patient Allergies No Known Allergies [No Known Allergies*] Allergy (Verified 05/15/24 10:24) Medication List - Last Reconciled 05/15/24 by Mckenna Davies PA-C acetaminophen ER 650 mg PO Q12H 30 days albuterol sulfate 2.5 mg inhalation Q4H PRN amlodipine (Norvasc) 5 mg PO DAILY anastrozole (Arimidex) 1 tab PO DAILY cyanocobalamin (vitamin B-12) (Vitamin B-12) 1,000 mcg PO DAILY docusate sodium (Colace) 100 mg PO BID 30 days fluticasone propion-salmeterol 100-50 mcg/dose (Wixela Inhub) 1 inh inhalation BID 30 days gabapentin 900 mg (3 x 300 mg) PO TID ibuprofen 800 mg PO Q12H PRN 30 days [kotex pads As directed] lisinopril 20 mg PO DAILY 90 days montelukast 10 mg PO BEDTIME 90 days omeprazole 20 mg PO DAILY 30 days ondansetron 1 tab PO Q6H PRN paroxetine HCl ER 12.5 mg PO DAILY Paxil CR (paroxetine HCl) 50 mg (2 x 25 mg) PO DAILY NS Paxil CR (paroxetine HCl) 12.5 mg PO DAILY NS prednisone 10 mg PO DIRECTED 9 days [shower chair As directed] simethicone 180 mg PO BID 30 days [toilet arms As directed] [wipes As directed] Tobacco use date assessed: 05/15/24 Fall risk assessment: 1 Fall in past year Last assessed Fall Risk: 05/15/24 Dental Screening Dental Screen Date: 05/15/24 Did you have a dental visit in the last 12 months?: Yes Did you have a dental problem in the last 6 months where you did not have access to dental care?: No Was dental information given to patient?: Patient has dentist HPI Cataract Surgery on 05/25 and 06/05 HPI Details 69-year-old female with past medical his tory invasive lobular carcinoma of the breast, asthma, depression hypertension and cerebral palsy last seen by [facility] 01/2024 coming in for preop. Patient is scheduled to have cataract surgery with Dr. Lemon 05/25/2024 and 06/05/2024. Patient has had surgery and anesthesia in the past without complication. Does have nausea with anesthesia. Patient has no history of FL, CVA, CHF or diabetes mellitus. Hypertension: Blood pressure is well managed 120/76 today presently on lisinopril 20 mg and amlodipine 5 mg Asthma: Asthma is well controlled on current inhalers. [facility], [facility] Medical History Colonic stricture Frequent falls Hx of flexible sigmoidoscopy Elevated platelet count Colonic stricture Breast CA Prolapse of intestine Rectal prolapse Invasive lobular carcinoma of breast in female Asthma MDD (major depressive disorder) Surgical History History of gastric surgery History of lumpectomy of right breast History of open sigmoidectomy Family History Father Family history unknown Mother Breast cancer Brother No problems noted. Sister History of leukemia Social History Household Members: None Housing: Apartment Are you a primary critical care cns to a significant other at home: No Do you presently have visiting nurse or other home services: Yes Alcohol intake: former Patient Tobacco Use Status: Never used Tobacco e-Cigarette/Vaping Use: Never Used Second Hand Smoke Exposure: No Advance Directives Date on File: 09/01/21 service: No Current occupational status: retired Cognitive needs: Yes (walker) Hearing needs: No Vision needs: Yes (reading glasses) Questionnaire PHQ-9 Over the last 2 weeks, how often have you been bothered by any of the following problems? 1. Little interest or pleasure in doing things: not at all 2. Feeling down, depressed, or hopeless: not at all 3. Trouble falling or staying asleep, or sleeping too much: not at all 4. Feeling tired or having little energy: not at all 5. Poor appetite or overeating: not at all 6. Feeling bad about yourself - or that you are a failure or have let yourself or your family down: not at all 7. Trouble concentrating on things, such as reading the newspaper or watching television: not at all 8. Moving or speaking so slowly that other people could have noticed. Or the opposite - being so fidgety or restless that you have been moving around a lot more than usual: not at all 9. Thoughts that you would be better off or of hurting yourself in some way: not at all Total score: 0 Depression Screening Interpretation: Negative Depression Screening Done: Yes Source: Developed by Drs. Tin Arriaga, Sia Raymundo, Ean Miles and colleagues, with an educational bernarda from [employer]. Thrive Questionnaire Date Thrive assessed: 05/15/24 I am a: Patient What is your living situation today?: I have a steady place to live Within the past 12 months, did the food you bought not last and you didn't have the money to get more?: Never true Within the past 12 months, did you worry whether your food would run out before you got money to buy more?: Never true Do you have trouble paying for medicines?: No Do you have trouble getting transportation to medical appointments?: No Do you have trouble paying your heating and electricity bill?: No Do you have trouble taking care of your child, family member or friend?: No Do you have trouble with day-to-day activities such as bathing, preparing meals, shopping, managing finances, etc.?: No Are you currently unemployed and looking for a job?: No Are you interested in more education?: No Please select the resources that you would like help with: None Currently or been in a relationship where the following occur: No concerns reported THRIVE Score: 0 AUDIT C Alcohol Use Questionnaire (AUDIT-C) 1. How often do you have a drink containing alcohol?: Never Total Score: 0 BRITNEY-7 AMB Questionnaire BRITNEY-7 Date BRITNEY - 7 assessed: 05/15/24 Feeling nervous, anxious, or on edge: 0 = Not at all Not being able to stop or control worryin = Not at all Worrying too much about different things: 0 = Not at all Trouble relaxin = Not at all Being so restless that it is hard to sit still: 0 = Not at all Becoming easily annoyed or irritable: 0 = Not at all Feeling afraid as if something awful might happen: 0 = Not at all Total BRITNEY-7 score (0-4 normal; 5-9 mild; 10-14 moderate; 15-21 severe): 0 Source: Developed by Drs. Tin Arriaga, Sia Raymundo, Ean Miles and colleagues, with an educational bernarda from [employer]. Review of Systems Const Denies body aches, Denies chills, Denies fever(s), Denies headache(s) and Denies poor appetite Eyes Reports no additional complaints ENT Denies dysphagia, Denies dizziness, Denies headache(s) and Denies odynophagia Card Denies chest pain, Denies syncope, Denies edema, Denies irregular heart rhythm, Denies lightheadedness and Denies dyspnea Resp Denies cough and Denies dyspnea GI Denies abdominal pain, Denies constipation, Denies dysphagia, Denies diarrhea, Denies nausea, Denies odynophagia and Denies vomiting Reports no additional complaints Musc Reports no additional complaints and Denies abnormal gait Skin/Breast Reports system reviewed and no additional complaints, except as documented Neuro Denies abnormal gait, Denies dizziness, Denies syncope and Denies headache(s) Psych Reports no additional complaints Physical exam (Primary Care) Vital Signs: Last Vital Signs Temp 97.1 F 05/15/24 10:08 Pulse 71 05/15/24 10:08 BP 120/76 05/15/24 10:08 Pulse Ox 96 05/15/24 10:08 Oxygen Delivery Method Room Air 05/15/24 10:08 BMI result Body Mass Index 24.7 Tobacco/Smoking Status: Tobacco use Status Tobacco use date assessed 05/15/24 05/15/24 10:12 Patient Tobacco Use Status Never used Tobacco 05/15/24 10:12 e-Cigarette/Vaping Use Never Used 05/15/24 10:12 PHQ-9: PHQ-9 Score PHQ-9: Total score 0 05/15/24 10:12 Depression Screening Interpretation: Negative Thrive Assessment: Date of Thrive Assessment Date Thrive assessed 05/15/24 05/15/24 10:12 Currently or been in a relationship where the following occur: No concerns reported Const General: cooperative, healthy appearing, comfortable and no acute distress Orientation/consciousness: patient oriented x3 [facility] Head: Yes normocephalic Ears: hearing grossly normal bilaterally General nose exam: Normal external nose present Eyes General: appearance normal, both eyes and all related structures Conjunctivae: conjunctivae normal Neck Neck: Yes full ROM and Yes no lymphadenopathy Resp Effort & Inspection: normal respiratory effort Auscultation: clear to auscultation bilaterally, no crackles, no rales, no rhonchi and no wheezes Cardio Rate: regular rate Rhythm: regular rhythm Skin General skin exam: no rashes or lesions noted Neuro General: patient oriented x3 Gait exam (Neuro): Normal gait present Extrem General: Yes normal to inspection, Yes full ROM and No edema Psych Affect: normal affect Attitude: cooperative Insight: Good insight present (Psych) Judgement: Good judgement present (Psych) Coding Level of Care Code Est Pt Level 3 (12238) Diagnoses Pre-op evaluation Z01.818 Assessment & Plan Assessment & Plan (1) Pre-op evaluation: Code(s): Z01.818 - Encounter for other preprocedural examination Category: Medical Plan: Regarding preop clearance, the patient is at moderate risk for proposed surgery due to age and comorbidities which are well managed at this time. Reviewed with the patient that no surgery is completely free of risk and that this examination is to assist the surgeon in reviewing informed consent. Advised patient to take all medications as scheduled up until the day of the procedure and may continue medications after procedure has been completed. Avoid the use of NSAIDs 1 week prior to surgery. Patient has no previous cardiac history likely will not need EKG for preoperative exam for cataract surgery however if surgeon requests order can be placed. Blood work evaluated and reviewed today with patient. No further workup needed at this time and may proceed with the contemplated procedure. Thank you very much for letting me participate in the care of this patient Plan This note was constructed using voice recognition software. While every effort has been made to ensure accuracy and carpenter railcar, still areas may have been included sometimes these areas may affect the content or meeting of the given symptoms. Total time spent caring for the patient today was 20 minutes. This includes time spent before the visit reviewing the chart, time spent during the visit, and time spent after the visit and documentation. Medications: Discontinued acetaminophen ER Discontinued Reason: Patient no longer taking 650 mg PO Q12H 30 days 60 tabs 1RF G80.9 - Cerebral palsy, unspecified prednisone Take 3 tablets x3 days, 2 tablets x3 days, 1 tablet x3days Discontinued Reason: Patient no longer taking 10 mg PO DIRECTED 9 days 18 tabs 0RF J45.20 - Mild intermittent asthma, uncomplicated
[2024-05-15 10:08] VITALS: BP 120/76; PULSE 71; TEMP 36.2; O2SAT 96; BMI 24.7
--- OUTSIDE RECORDS SUMMARY | 2024-05-15 11:42 | XMS_ITS | Data Portability ---
Author Organization [facility] Address [address] [place] [address] Care Team Providers Care Yard Switch Operator Name Role Phone [facility] Referring Provider Assessment Encounter Date Assessment Date Assessment LastModified by Organization Details LastModified Time 03/17/2022 03/17/2022 As noted, we were called to see this patient regarding concerns of low back pain and muscle spasms after recent fall.. Evaluation in the field was performed by my pmo project manager colleague, as noted above, I provided real-time [...] Robaxin-75 0 750 mg tablet 2022 023 [facility] [place], [address], 3 10:40:44 lidocaine 5 % topical patch 2022 023 [facility], [address] [facility], [place], [address], 3 10:40:43 Patient TargetsNo targets recorded. Patient [...] Asif Cloud MD Main - [facility] [address] [place] [id number] 03/17/2022 10:37:40 03/19/2022 12:17:58 Low back pain [id number] M54.50 Health Concerns Section Related Observation LastModified by Organization Detai ls LastModified Time None Recorded Concern Status LastModified by Organization Details LastModified Time None Recorded Advance Directives Directive None Recorded Payers Encounter Date Sequence Insurance Name Policy Number Policy Pineda Covered Member ID Pineda Member ID Guarantor Name 03/17/2022 1 [facility] - DOS PRIOR TO 2022 - DUAL ELIGIBLE (MEDICARE REPLACEMENT/ADV ANTAGE - HMO) Nayla Lepe [id number] Nayla Lepe Notes Date Note Type Note Provider Name and Address Organization Details Recorded Time 03/17/2022 text/html [facility] Nursing Assessment: Reason For Request: Pain Patient Reports: Weakness with fall, able to move all extremities Chief Complaints: Falls, Pain PMH: COPD/Asthma, Hypertension, Cancer Allergies: No Known Comments: Member requesting [facility] visit. Member is s/p fall [...] ................... ................... ................... ................... ................... ................... ........ Moulder Operator Note From Carie Hall: Dispatched to [...] no constant pain, pt ambulating wo issue, [facility] and [facility] discussed and prescriptions call to pharmacy ................... ................... ................... ................... ................... ................... ................... ........ Disposition: Fulfilled Asif Cloud MD [address] [facility],[address], [place], [address], [email or web address] 03/17/2022 11:01:25 OBGyn Episode No OBEpisode recorded.
--- OUTSIDE RECORDS SUMMARY | 2024-05-15 11:42 | XMS_ITS | Clinical Summary ---
Author Organization [facility] Facility Address [address] [address] Care Team Providers Care Med Spec Name Role Phone Polo Nascimento Primary Care Provider [phone] Social History Tobacco Use Types Packs/Day Years [...] Colorectal Cancer Screening: Sigmoidoscopy 2003 Influenza Vaccine (Season Ended) 2024 11/09/2018, 11/09/2017, 11/25/2016 Pneumococcal Vaccine: 65+ Years (3 of 3 - PPSV23 or PCV20) 11/15/2024 11/16/2019, 12/31/2015 Hepatitis B Vaccine Aged Out No longe r eligible based on patient's age to complete this topic Insurance [facility] Care Teams Med Spec Relationship Specialty Start Date End Date Polo Nascimento PA [address] [facility] [address], [address] [place] [address] PCP - General Physician Buncher Machine 06/30/21
--- OUTSIDE RECORDS SUMMARY | 2024-05-15 11:42 | XMS_ITS | Clinical Summary ---
Author Organization [facility] Address [address] [place] [address] Care Team Providers Care Trauma Coordinator Name Role Phone AnaLanden Primary Care Provider [phone] Allergies No known active allergies Medications Medication [...] age to complete this topic Care Teams Trauma Coordinator Relationship Specialty Start Date End Date Landen Perez DO [address] [place] [id number] PCP - General 10/20/16
--- OUTSIDE RECORDS SUMMARY | 2024-05-15 11:42 | XMS_ITS | Patient Health Record ---
Author Organization [facility] Address [address] [place] [address] Care Team Providers Care Basket Machine Operator Name Role Phone Polo Nascimento Primary Care Provider UnavailTin Rose Unavailable [phone] Reason For Referral No Information Problems Problem Type SNOMED Code ICD Code Onset Dates Problem Status W/U Status Risk Notes Problem Gastrointestinal anastomotic stricture (703254280) Gastrointestinal anastomotic stricture (K91.30) Active confirmed Plan Of Treatment Future Test Test Name Order Date FLEXIBLE SIGMOIDOSCOPY, DIAGNOSTIC 07/04 FLEXIBLE SIGMOIDOSCOPY, DIAGNOSTIC 07/22 FLEXIBLE SIGMOIDOSCOPY, DIAGNOSTIC 08/17 Insurance Providers Payer Name Payer Address Payer Phone Subscriber Number Group Number Insured Name Patient Relationship to Insured Coverage Start Date Coverage End Date [facility] [address] [place] [address] [id number] YADIRA LAMBERT Self - patient is the insured
== END 2024-05-15 10:55 | disposition home or self-care (01) ==
LOC: HO.HMCH 10:01
PROVIDERS: PCP Physician Assistant
DX: Z01.818 Encounter for other preprocedural examination (principal)

== ENCOUNTER → 2024-05-15 10:01 | Outpatient (BNVA) | payer OTHER, SELFPAY | PROVIDERS: PCP Physician Assistant | DX: Z01.818 Encounter for other preprocedural examination (principal); F32.A Depression, unspecified; I10 Essential (primary) hypertension; G80.9 Cerebral palsy, unspecified; C50.919 Malignant neoplasm of unspecified site of unspecified female breast; J45.20 Mild intermittent asthma, uncomplicated | CPT/HCPCS: 96127; 99212 ==

== ENCOUNTER 2024-05-22 08:17 | Day surgery (SDC) | payer OTHER, SELFPAY ==
--- OUTSIDE RECORDS SUMMARY | 2024-04-06 12:53 | XMS_ITS | Patient Health Record ---
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
--- OUTSIDE RECORDS SUMMARY | 2024-04-06 12:53 | XMS_ITS | Data Portability ---
Author Organization [employer] [place] [facility] Address [address] [place] [address] Care Team Providers Care Sales Rep Name Role Phone [facility] Referring Provider Assessment Encounter Date Assessment Date Assessment LastModified by Organization Details LastModified Time 03/17/2022 03/17/2022 As noted, we were called to see this patient regarding concerns of low back pain and muscle spasms after recent fall.. Evaluation in the field was performed by my front office agent colleague, as noted above, I provided real-time [...] Robaxin-75 0 750 mg tablet 2022 023 [employer] [facility] [place], [address], 3 10:40:44 lidocaine 5 % topical patch 2022 023 [facility], [address] [facility], [place], [address], 3 10:40:43 Patient TargetsNo targets recorded. Patient [...] [id number] Asif Cloud MD Main - [facility] [address] [place] [address] 03/17/2022 10:37:40 03/19/2022 12:17:58 Low back pain 681527357 M54.50 Health Concerns Section Related Observation LastModified by Organization Detai ls LastModified Time None Recorded Concern Status LastModified by Organization Details LastModified Time None Recorded Advance Directives Directive None Recorded Payers Encounter Date Sequence Insurance Name Policy Number Policy Pineda Covered Member ID Pineda Member ID Guarantor Name 03/17/2022 1 [facility] - DOS PRIOR TO 2022 - DUAL ELIGIBLE (MEDICARE REPLACEMENT/ADV ANTAGE - HMO) Nayla Lepe [id number] Nayla Lepe Notes Date Note Type Note Provider Name and Address Organization Details Recorded Time 03/17/2022 text/html [facility] Nursing Assessment: Reason For Request: Pain Patient Reports: Weakness with fall, able to move all extremities Chief Complaints: Falls, Pain PMH: COPD/Asthma, Hypertension, Cancer Allergies: No Known Comments: Member requesting [facility] visit. Member is s/p fall 2 [...] ................... ................... ................... ................... ................... ................... ........ Transmission Assembler Note From Carie Hall: Dispatched to the [...] no constant pain, pt ambulating wo issue, [facility] and supportive care discussed and prescriptions call to pharmacy ................... ................... ................... ................... ................... ................... ................... ........ Disposition: Fulfilled Asif Cloud MD [address] [facility],[address], [place], [address], [employer] [facility] [employer] 03/17/2022 11:01:25 OBGyn Episode No OBEpisode recorded.
--- OUTSIDE RECORDS SUMMARY | 2024-04-06 12:53 | XMS_ITS | Clinical Summary ---
Author Organization [facility] Address [address] [address] Care Team Providers Care Slot Machine Department Floorperson Name Role Phone Polo Nascimento Primary Care Provider [phone] Social History Tobacco Use Types Packs/Day Years [...] patient's age to complete this topic Insurance [facility] Care Teams Slot Machine Department Floorperson Relationship Specialty Start Date End Date Polo Nascimento PA [address] [facility], [address] [place] [address] PCP - General Physician Family And Consumer Science Professor 06/30/21
--- OUTSIDE RECORDS SUMMARY | 2024-04-06 12:53 | XMS_ITS | Clinical Summary ---
Author Organization [facility] Address [address] [place] [address] Care Team Providers Care Pricing Director Name Role Phone AnaLanden Primary Care Provider [phone] Allergies No known active allergies Medications Medication [...] age to complete this topic Care Teams Pricing Director Relationship Specialty Start Date End Date Landen Perez DO [address] [place] [address] PCP - General 10/20/16
--- OUTSIDE RECORDS SUMMARY | 2024-04-06 12:53 | XMS_ITS | Data Portability ---
Author Organization [place] [facility] Nadeen Stoll AONE Ballinger Address [address] [facility] [address] [place] [address] Care Team Providers Care Accelerator Operator Name Role Phone JENACARLOS KENNEDY Primary Care Provider JEANCARLOS KENNEDY Referring Provider [phone] JEANCARLOS KENNEDY Primary Care Provider [phone] Assessment Encounter Date Assessment Date Assessment LastModified [...] more view 2023 024 [email or web address] [facility], [address], [place], [address], 4 10:53:14 XR, shoulder , 2 or more view 2023 024 [facility], [address], [place], [address], 4 13:06:37 XR, shoulder , 2 or more view 2023 024 [facility], [address], [place], [address], 4 13:06:37 Medication Orders lidocain e (PF) 10 mg/mL (1 %) injectio n solution [email or web address] [place] [address] [facility], [address] [place], [place], [id number], 4 10:13:47 triamcin olone acetonid e 40 mg/mL suspensi on for injectio n [address] [facility] #93527, [address] [place], [place], [id number], 4 10:13:59 Marcaine (PF) 0.5 % (5 mg/mL) injectio n solution [address] [facility] #64040, [address] [place], [place], [id number], 4 10:13:53 lidocain e (PF) 100 mg/5 mL (2 %) injectio n syringe [address] [facility] #28010, [address] [place], [place], [id number], 4 10:13:50 triamcin olone acetonid e 40 mg/mL suspensi on for injectio n [address] [facility] #37773, [address] [place], [place], [id number], 4 10:13:59 Kenalog 40 mg/mL suspensi on for injectio n [address] [facility] #68593, [address] [place], [place], [id number], 4 10:13:59 lidocain e (PF) 10 mg/mL (1 %) injectio n solution [address] [facility] #26804, [address] [place], [place], [id number], 4 10:13:47 Kenalog 40 mg/mL suspensi on for injectio n [address] [facility] #20847, [address] [place], [place], [id number], 4 10:13:59 lidocain e (PF) 10 mg/mL (1 %) injectio n solution [address] [facility] #65354, [address] [place], [place], [id number], 4 10:13:47 Kenalog 40 mg/mL suspensi on for injectio n [address] [facility] #12731, [address] [place], [place], [id number], 4 10:13:59 lidocain e (PF) 10 mg/mL (1 %) injectio n solution [address] [facility] #84723, [address] [place], [place], [id number], 4 10:13:47 Patient TargetsNo targets recorded. Patient Instructions Encounter Date Encounter Id Patient Instructions Last Modified By Organization Details Last Modified Time 02/25/2023 [id number] You have been provided with a cortisone [...] office or contact us through the portal [facility]. Not available 02/25/2023 10:45:46 04/22/2023 [id number] You have been provided with a cortisone [...] office or contact us through the portal [facility]. Not available 04/22/2023 09:49:35 07/22/2023 [id number] You have been provided with a cortisone [...] the bones. Not available 07/22/2023 11:13:41 08/20/2023 [id number] {{2 3 4 5 6 7* 8 [...] Osteoarthri tis of right glenohumera l joint 3762891592307 101 Active 2022 LOVELY COATS PA-C [address], [place], [address], [place] [facility] P 3 10:35:14 Osteoarthri tis of left glenohumera l joint 6417098968358 104 Active 2022 LOVELY COATS PA-C [address], [place], [address], [place] [facility] 3 10:35:19 Osteoarthri tis of right knee joint 2839421819457 00 Active 2022 LOVELY COATS PA-C [address], [place], [address], [place] [facility] 3 11:23:10 Pain of right shoulder joint 0961731479204 9100 Active 2022 LOVELY COATS PA-C [address], [place], [address], [place] [facility] 3 07:50:39 Pain of left shoulder joint 6228168759012 9109 Active 2022 LOVELY COATS PA-C [address], [place], [address], [place] [facility] 3 07:50:39 Arthritis of joint of right shoulder region 5383039504669 101 Active 2022 LOVELY COATS PA-C [address], [place], [address], [place] [facility] 3 09:58:21 Arthritis of joint of left shoulder region 8364213292573 106 Active 2022 LOVELY COATS PA-C [address], [place], [address], [place] [facility] 3 09:58:30 Problem Notes None recorded. Procedures Surgical History Date Name Laterality Status Provider Name and Address Organization Details Recorded Time 07/22/19 24 LES Shoulder Interarticular Inj completed Lachelle Park MD [address], [place], [address], [place] [facility] 07/22/2023 11:12:25 05/13/19 24 MJG Knee injection w/US completed LOVELY NEWELL PA-C [address], [place], [address], [place] [facility] 05/13/2023 08:49:56 04/22/19 24 Knee Joint/Bursa Asp & Inj completed LOVELY COATS PA-C [address], [place], [address], [place] [facility] 04/22/2023 09:49:34 02/25/19 24 Knee Joint/Bursa Asp & Inj completed LOVELY COATS PA-C [address], [place], [address], [place] [facility] 02/25/2023 10:44:49 01/22/20 23 Knee Joint/Bursa Asp & Inj completed LOVELY COATS PA-C [address], [place], [address], [place] [facility] 01/21/2023 09:39:57 11/25/19 23 Knee Joint/Bursa Asp & Inj completed LOVELY COATS PA-C [address], [place], [address], [place] [facility] 11/24/2022 10:01:30 10/21/19 23 Knee Joint/Bursa Asp & Inj completed LOVELY COATS PA-C [address], [place], [address], [place] [facility] 10/20/2022 07:50:46 08/04/19 23 Knee Joint/Bursa Asp & Inj completed LOVELY COATS PA-C [address], [place], [address], [place] [facility] 08/03/2022 07:56:34 07/28/19 23 Knee Joint/Bursa Asp & Inj completed LOVELY COATS PA-C [address] [facility],[address], [place], [address], [place] [facility] 07/27/2022 07:52:16 04/29/19 23 Shoulder Joint/Bursa Asp & Inj completed LOVELY COATS PA-C [address] [facility],[address], [place], [address], [place] [facility] 04/28/2022 10:09:22 Imaging Results None recorded. [...] Updated DateTime 08/20/2023 160.02 cm 24.8 kg/m2 09469.93 g Cortney Ch [place] [facility], 08/20/2023 10:14:05 Social History Question Answer Notes LastModified by Organizat ion Details LastModified Time Tobacco Smoking Status Never Smoker Elsa Clyde david [place] [facility], 11/24/2022 09:59:31 What Is Your Level Of [...] Code Diagnosis Note [id number] MD REANNA Riggins [address] [place] [address] 04/28/2022 09:30:33 04/28/2022 10:29:26 Arthritis of joint of right shoulder region 6242612681 722616 M13.811 Arthritis of joint of left shoulder region 8939124098 701662 M13.812 [id number] MD REANNA Cyrmary anne [address] [facility] [address] [place] [address] 07/27/2022 09:47:19 07/27/2022 11:53:09 Pain of right shoulder joint 7340581139 6170083 M25.511 Pain of le ft shoulder joint 9486273718 3398877 M25.512 Osteoarthr itis of right glenohumeral joint 8660640567 741963 M19.011 Osteoarthr itis of left glenohumeral joint 4629085750 547110 M19.012 [id number] MD REANNA [facility] [address] [address] 08/03/2022 10:27:28 08/03/2022 10:51:12 Osteoarthritis of right knee joint 1587360993 87122 M17.11 [id number] MD REANNA Mccain [facility] [address] [address] 10/20/2022 09:38:49 10/20/2022 10:17:16 Pain of right shoulder joint 2576014609 6930770 M25.511 Pain of le ft shoulder joint 7745915021 2587569 M25.512 Osteoarthr itis of right glenohumeral joint 4153984959 531226 M19.011 Osteoarthr itis of left glenohumeral joint 8918768721 415031 M19.012 [id number] MD REANNA [facility] [address] [address] 11/24/2022 09:47:12 11/24/2022 10:11:10 Osteoarthritis of right knee joint 2919896760 76847 M17.11 [id number] MD REANNA Mccain [facility] [address] [address] 01/21/2023 10:09:04 01/21/2023 10:45:39 Pain of right shoulder joint 3064175530 0158757 M25.511 Pain of le ft shoulder joint 8205467795 5250082 M25.512 Osteoarthr itis of right glenohumeral joint 5881763869 056508 M19.011 Osteoarthr itis of left glenohumeral joint 7228984747 237087 M19.012 [id number] MD REANAN Cyrmary anne [address] [address] 02/25/2023 10:20:02 02/25/2023 10:56:29 Osteoarthritis of right knee joint 0164057789 42403 M17.11 [id number] MD REANNA Mccain [facility] [address] [address] 04/22/2023 09:10:12 04/22/2023 09:55:26 Pain of right shoulder joint 1440568508 0611012 M25.511 Pain of le ft shoulder joint 8051931290 2825481 M25.512 Osteoarthr itis of right glenohumeral joint 0272274927 037864 M19.011 Osteoarthr itis of left glenohumeral joint 8874151193 417126 M19.012 [id number] MD REANNA [facility] [address] [address] 05/13/2023 08:11:11 05/13/2023 09:10:22 Osteoarthritis of right knee joint 2116698915 66657 M17.11 Additional diagnosis detail: Primary osteoarthr itis of right knee [id number] MD REANNA Barrios [facility] [address] [address] 07/22/2023 09:59:01 07/22/2023 10:47:09 Osteoarthritis of right glenohumeral joint 3860397594 186203 M19.011 Osteoarthr itis of left glenohumeral joint 4084590921 808031 M19.012 Osteoarthr itis of bilateral glenohumeral joints 9649338208 308087 M19.011 M19.012 Additional diagnosis detail: Osteoarthr itis of both glenohumer al joints [id number] MD REANNA Cyrmary anne [address] [address] 08/20/2023 09:46:12 08/20/2023 10:24:29 Osteoarthritis of right knee joint 2767317333 91571 M17.11 Additional diagnosis detail: Primary osteoarthr itis of right knee Health Concerns Section Related Observation LastModified by Organization Detai ls LastModified Time None Recorded Concern Status LastModified by Organization Details LastModified Time None Recorded Advance Directives Directive None Recorded Payers Encounter Date Sequence Insurance Name Policy Number Policy Pineda Covered Member ID Pineda Member ID Guarantor Name 02/25/2023 1 [facility] - DOS ON OR AFTER 2022 - ONE CARE (MEDICARE REPLACEMENT/ADV ANTAGE - HMO) Nayla Lepe [id number] Nayla Lepe 04/22/2023 1 [facility] - DOS ON OR AFTER 2022 - ONE CARE (MEDICARE REPLACEMENT/ADV ANTAGE - HMO) Nayla Lepe [id number] Nayla Lepe 05/13/2023 1 [facility] - DOS ON OR AFTER 2022 - ONE CARE (MEDICARE REPLACEMENT/ADV ANTAGE - HMO) Nayla Lepe [id number] Nayla Lepe 07/22/2023 1 [facility] - DOS ON OR AFTER 2022 - ONE CARE (MEDICARE REPLACEMENT/ADV ANTAGE - HMO) Nayla Lepe [id number] Nayla Lepe 08/20/2023 1 [facility] - DOS ON OR AFTER 2022 - ONE CARE (MEDICARE REPLACEMENT/ADV ANTAGE - HMO) Nayla Lepe [id number] Nayla Lepe Notes Date Note Type Note Provider Name and Address Organization Details Recorded Time 02/25/2023 text/html Pleasant 59-year -old female osteoarthritis of the right knee last cortisone injection was on 11/24/2022. Her pain is medial nature that is worse with walking. She has no other complaints at today's visit. LOVELY COATS PA-C [address] [place] [address],[facility] [address], [place], [address], [place] [facility] 02/25/2023 10:46:11 04/22/2023 text/html BL shoulders. cortisone 01/21/2023 Pleasant 68-year-old female history of bilateral shoulder pain history of glenohumeral arthritis as well as stiffness due to cerebral palsy. She denies any falls here for bilateral cortisone injections of the shoulders. Denies recent or current illness LOVELY COATS PA-C [address] [facility],[address] [facility], [place], [address], [place] [facility] 04/22/2023 09:51:36 05/13/2023 text/html 68-year-old kelli hendricks presents with recent recurrence of pain at the right knee. She is known to have osteoarthritis of the knee. She gets cortisone injections periodically which have continued to be effective at giving her meaningful relief of her pain. She requests a cortisone injection into the right knee today LOVELY NEWELL PA-C [address] [facility],[address] [facility], [place], [address], [place] [facility] 05/13/2023 08:50:30 07/22/2023 text/html This is a 68-year-old cshsb-lacx-ypkioeep female who is presenting with chronic bilateral [...] is very active and goes to the [employer]. When she is having pain, she takes Motrin which does help. She does not desire surgical intervention and would like steroid injections today. Lachelle Park MD [address] [facility],[address] [address], [place], [address], [place] [facility] 07/22/2023 11:14:59 08/20/2023 text/html 68-year-old kelli [...] since the fall. LOVELY NEWELL PA-C [address] [facility],[address], [place], [address], [place] [facility] 08/20/2023 10:26:10 OBGyn Episode No OBEpisode recorded.
[2024-05-18 13:16] VITALS: BMI 26.2
[2024-05-22 09:03] VITALS: BP 131/88; PULSE 86; RESP 14; TEMP 36.9; O2SAT 95
--- NOTE | 2024-05-22 09:07 | HO.ANESPROP2 ---
HPI - Anesthesia Eval Consult details Narrative: 69 yo F presenting for left cataract extraction IOL insertion. PONV. PMFSH Active Problems Active Problems: All Active Problems Pre-op evaluation (Acute) Arthritis of left knee (Acute) Impingement of right shoulder (Acute) Impingement syndrome of left shoulder (Acute) Right shoulder pain (Acute) Left shoulder pain (Acute) Impacted cerumen of both ears (Acute) Annual physical exam (Acute) Arthritis of right knee (Acute) Right knee pain (Acute) Laceration of head (Acute) Hypokalemia (Acute) Anastomotic stricture of colorectal region (Acute) Screening for diabetes mellitus (DM) (Acute) Positive colorectal cancer screening using Cologuard test (Acute) Medicare annual wellness visit, initial (Acute) Encounter for removal of sutures (Acute) Anemia (Acute) Spastic cerebral palsy, congenital (Acute) HTN (hypertension) (Acute) Frequent falls (Acute) MDD (major depressive disorder) (Acute) Asthma (Acute) Invasive lobular carcinoma of breast in female (Acute) Past Medical History Medical History Cataracts, bilateral Uses walker Cerebral palsy Frequent falls Colonic stricture Hx of flexible sigmoidoscopy Elevated platelet count Colonic stricture Breast CA Prolapse of intestine Rectal prolapse Invasive lobular carcinoma of breast in female Asthma MDD (major depressive disorder) Family History Family History Father Family history unknown Mother Breast cancer Brother No problems noted. Sister History of leukemia Family history of problems with anesthesia: No Surgical History Surgical History History of gastric surgery History of lumpectomy of right breast History of open sigmoidectomy History of Problems with Anesthesia: No Social History Social History Household Members: None Housing: Apartment Are you a primary housekeeper child care to a significant other at home: No Do you presently have visiting nurse or other home services: Yes (MANAGER ELIGIBILITY 21 hours/week) Alcohol intake: former Patient Tobacco Use Status: Never used Tobacco e-Cigarette/Vaping Use: Never Used Second Hand Smoke Exposure: No Use of substances other than those prescribed or required for medical reasons: No Have you been hit, kicked, punched, or otherwise hurt by someone within the past year? If so, by whom?: No Advance Directives: Yes Advance Directives Information Provided: No Advance Directives on File: Yes Advance Directives Date on File: 09/01/21 Poor oral hygiene: No service: No Current occupational status: retired Cognitive needs: Yes (walker) Hearing needs: No Vision needs: Yes (reading glasses) Meds Allergies Allergy/AdvReac Type Severity Reaction Status Date / Time No Known Allergies Allergy Verified 05/22/24 09:02 [No Known Allergies*] Active Medications: Current Medications Albuterol Sulfate (Albuterol Sulfate (0.083%) 2.5 Mg/3 Ml Vial.Neb) 2.5 mg INHALE ONCE PRN PRN Reason: Shortness of Breath/Wheezing Lactated Ringer's (Lr) 500 mls @ 50 mls/hr IV .Q10H VERONICA Stop: 05/22/24 18:44 Povidone Iodine (Povidone Iodine 5 % Ophth Soln 30 Ml Bottle) 1 appl EYE-LEFT PREOP PRN PRN Reason: Pre-Op Surgical Implant Prophy Home Medications ?Medication ?Instructions ?Recorded ?Confirmed ?Last Taken ?Type albuterol sulfate 2.5 mg/3 mL 2.5 mg inhalation Q4H PRN 11/14/19 05/18/24 Unknown History (0.083 %) solution for nebulization Shortness Of Breath ondansetron 4 mg disintegrating 1 tab PO Q6H PRN nausea/vomiting 06/18/21 05/18/24 Unknown History tablet Exam Exam Date and Time: 05/22/24 0900 Height,Weight and Vital Signs: Height 5 ft 3 in Weight 67.132 kg Last Vital Signs Temp 98.5 F 05/22/24 09:03 Pulse 86 05/22/24 09:03 Resp 14 05/22/24 09:03 BP 131/88 05/22/24 09:03 Pulse Ox 95 05/22/24 09:03 O2 Del Method Room Air 05/22/24 09:03 Airway Mallampati Class: II TM Dist: >3cm Neck ROM: Full Loose/Missing/Broken Teeth: No (patient denies any loose or broken teeth) Heart: S1S2 Lungs: CTAB Assessment and Plan Assessment Anesthesia Assessment: Anesthesia Plan Discussed and Chart Reviewed Final Anesthetic Review Family History of Problems with Anesthesia: No History of Problems with Anesthesia: No NPO: Yes ASA Class: II Final Preanesthetic Review: No Changes in Pt Med Stat, Meds/Allgs Chart Reviewed, Consent Obtained/Reviewed and Anes Risks/Benef Reviewed Patient Risk: Low Procedure Risk: Low Anesthetic Plan Anesthetic Plan: MAC: and Agree w/ Assess. and Plan Disposition: Standard PACU
[2024-05-22] MEDS: Lactated Ringers 500 ML 50 ML IV (09:08)
[2024-05-22] MEDS: Tetracaine HCl/PF 0.5% Oph Sol 4 ML DROPS 1 DROP EYE-LEFT (09:09)
[2024-05-22] MEDS: Cyclopentolate 1 % Ophth Sol 2 ML DRPBTL 1 DROP EYE-LEFT ×3 (09:11→09:16)
[2024-05-22] MEDS: Tropicamide 1 % Ophth Sol 3 ML BTL 1 DROP EYE-LEFT ×3 (09:12→09:16)
[2024-05-22] MEDS: Ketorolac Tromethamine 0.5% Op 5 ML DROPS 1 DROP EYE-LEFT ×3 (09:12→09:17)
[2024-05-22] MEDS: Phenylephrine HCL 2.5% Oph SoL 2 ML BOTTLE 1 DROP EYE-LEFT ×3 (09:13→09:18)
--- NOTE | 2024-05-22 09:45 | MHC.SHP ---
Pre-Procedural Eval Section A - 24 Hr Update-Section A only Date of Service: 05/22/24 The patient is an INPATIENT: No Changes since office visit: No Cold of Flu in the past 2 weeks, No New Medical Problems, No Changes in Medication and No Patient answered all questions The patient has been examined within 24 hours of the surgical procedure. The History & Physical has been completed within 30 days and I have reviewed it.: Yes Section B - Complete if H&P > 30 days Chief Complaint: Age-related nuclear cataract, left eye Allergies: Allergies Allergy/AdvReac Type Severity Reaction Status Date / Time No Known Allergies Allergy Verified 05/22/24 09:02 [No Known Allergies*] Plan Diagnosis/Plan: Unchanged I have reviewed the history and physical and performed a pertinent physical examination on my patient. No changes have occurred unless specified. Time Spent With Patient Time: Total time managing care of this patient today ____ minutes.
--- NOTE | 2024-05-22 09:46 | HO.PNOPHT ---
Ophthalmology Procedure Procedure Date of Service: 05/22/24 Ophthalmology Viscoelastic: Healon Duet Dual Pack Pro Ophthalmology Lenses: IOL Acrysof MP - [id number] (23) Procedure Notes: PREOPERATIVE DIAGNOSIS: Decreased visual acuity left eye secondary to cataract POSTOPERATIVE DIAGNOSIS: Same PROCEDURE: Left cataract extraction with intraocular lens insertion SURGEON: Landen Lemon M.D. ANESTHESIA: Topical/MAC ESTIMATED BLOOD LOSS: None COMPLICATIONS: None After obtaining informed consent, the patient was brought to the operation room suite and placed in the supine position. After adequate sedation per anesthesia, topical drops of Tetracaine were given to the left eye. The eye was then prepped and draped in the usual sterile fashion. The operating room microscope was then positioned over the operative eye and a lid speculum placed. A paracentesis was created. Viscoelastic was then instilled into the anterior chamber. A three plane incision was then created temporally, utilizing a 2.85 mm keratome. Capsulotomy forceps were then utilized to create a circular tear capsulotomy. Hydrodissection and hydrodelineation were carried out until adequate mobilization of the nucleus occurred. Phacoemulsification was then utilized to remove the dense central nucleus followed by removal of the cortical material utilizing the automated aspiration irrigation unit. Viscoat elastic was instilled into the posterior capsular bag followed by placement of a posterior chamber intraocular lens without difficulty. The residual Viscoat elastic was then removed utilizing the automated IA machine. The wound was check and found to be watertight. The patient tolerated the procedure well and the lid speculum was removed. Intracameral injection of Vigamox 0.1 mL followed by a subtenon injection of Kenalog-40 0.2 mL were administered. The patient will be seen in the a.m.
[2024-05-22 10:10] VITALS: BP 137/85; PULSE 83; RESP 16; TEMP 37.1; O2SAT 99
== END 2024-05-22 10:22 | disposition home or self-care (01) ==
PROVIDERS: PCP Physician Assistant; Visit Provider Ophthalmology
PROC: (CPT 66985; principal; 2024-05-22 10:30)
DX: H25.12 Age-related nuclear cataract, left eye (principal); H52.4 Presbyopia; H11.153 Pinguecula, bilateral; H18.413 Arcus senilis, bilateral; G80.8 Other cerebral palsy; I10 Essential (primary) hypertension; C50.911 Malignant neoplasm of unspecified site of right female breast; Z79.811 Long term (current) use of aromatase inhibitors; J45.20 Mild intermittent asthma, uncomplicated; Z66 Do not resuscitate; K56.699 Other intestinal obstruction unspecified as to partial versus complete obstruction; K62.3 Rectal prolapse; D75.839 Thrombocytosis, unspecified; F32.A Depression, unspecified; Z91.81 History of falling; Z79.1 Long term (current) use of non-steroidal anti-inflammatories (NSAID); Z79.52 Long term (current) use of systemic steroids; Z79.899 Other long term (current) drug therapy; Z98.890 Other specified postprocedural states
CPT/HCPCS: 66984; J2250; J3301; V2630

== ENCOUNTER 2024-06-05 08:58 | Day surgery (SDC) | payer OTHER, SELFPAY ==
[2024-05-18 13:22] VITALS: BMI 26.2
--- NOTE | 2024-06-01 14:41 | HO.ANESPROP2 ---
Documented by User: Poly Mckeon NP 06/01/24 14:42 HPI - Anesthesia Eval Consult details Narrative: 69yo F for Right Cataract Extraction IOL Insertion Left eye 05/22/24: Midaz 1 PMFSH Active Problems Active Problems: All Active Problems Breast CA (Acute) Pre-op evaluation (Acute) Arthritis of left knee (Acute) Impingement of right shoulder (Acute) Impingement syndrome of left shoulder (Acute) Right shoulder pain (Acute) Left shoulder pain (Acute) Impacted cerumen of both ears (Acute) Annual physical exam (Acute) Arthritis of right knee (Acute) Right knee pain (Acute) Laceration of head (Acute) Hypokalemia (Acute) Anastomotic stricture of colorectal region (Acute) Screening for diabetes mellitus (DM) (Acute) Positive colorectal cancer screening using Cologuard test (Acute) Medicare annual wellness visit, initial (Acute) Encounter for removal of sutures (Acute) Anemia (Acute) Spastic cerebral palsy, congenital (Acute) HTN (hypertension) (Acute) Frequent falls (Acute) MDD (major depressive disorder) (Acute) Asthma (Acute) Invasive lobular carcinoma of breast in female (Acute) Past Medical History Medical History (Updated 05/26/24 @ 12:18 by Bella Belle NP) Cataracts, bilateral Uses walker Cerebral palsy Frequent falls Colonic stricture Hx of flexible sigmoidoscopy Elevated platelet count Colonic stricture Breast CA Prolapse of intestine Rectal prolapse Invasive lobular carcinoma of breast in female Asthma MDD (major depressive disorder) Family History Family History Father Family history unknown Mother Breast cancer Brother No problems noted. Sister History of leukemia Family history of problems with anesthesia: No Surgical History Surgical History Hx of left cataract extraction (05/22/24) History of gastric surgery History of lumpectomy of right breast History of open sigmoidectomy History of Problems with Anesthesia: No Social History Social History Household Members: None Housing: Apartment Are you a primary primary care nurse practitioner to a significant other at home: No Do you presently have visiting nurse or other home services: Yes ([employer] 21 hours/week) Alcohol intake: former Patient Tobacco Use Status: Never used Tobacco e-Cigarette/Vaping Use: Never Used Second Hand Smoke Exposure: No Use of substances other than those prescribed or required for medical reasons: No Have you been hit, kicked, punched, or otherwise hurt by someone within the past year? If so, by whom?: No Advance Directives: Yes Advance Directives Information Provided: No Advance Directives on File: Yes Advance Directives Date on File: 09/01/21 Poor oral hygiene: No service: No Current occupational status: retired Cognitive needs: Yes (walker) Hearing needs: No Vision needs: Yes (reading glasses) Meds Allergies Allergy/AdvReac Type Severity Reaction Status Date / Time No Known Allergies Allergy Verified 05/22/24 09:02 [No Known Allergies*] Home Medications ?Medication ?Instructions ?Recorded ?Confirmed ?Last Taken ?Type albuterol sulfate 2.5 mg/3 mL 2.5 mg inhalation Q4H PRN 11/14/19 05/26/24 Unknown History (0.083 %) solution for nebulization Shortness Of Breath ondansetron 4 mg disintegrating 1 tab PO Q6H PRN nausea/vomiting 06/18/21 05/26/24 Unknown History tablet Exam Height,Weight and Vital Signs: Height 5 ft 3 in Weight 67.132 kg Assessment and Plan Assessment Anesthesia Assessment: Chart Reviewed Final Anesthetic Review Family History of Problems with Anesthesia: No History of Problems with Anesthesia: No Documented by User: Yris Marcos MD 06/05/24 10:12 [facility] Past Medical History Medical History (Updated 05/26/24 @ 12:18 by Bella Belle NP) Cataracts, bilateral Uses walker Cerebral palsy Frequent falls Colonic stricture Hx of flexible sigmoidoscopy Elevated platelet count Colonic stricture Breast CA Prolapse of intestine Rectal prolapse Invasive lobular carcinoma of breast in female Asthma MDD (major depressive disorder) Family History Family History Father Family history unknown Mother Breast cancer Brother No problems noted. 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 If so, by whom?: No Advance Directives: Yes Advance Directives Information Provided: No Advance Directives on File: Yes Advance Directives Date on File: 09/01/21 Poor oral hygiene: No service: No Current occupational status: retired Cognitive needs: Yes (walker) Hearing needs: No Vision needs: Yes (reading glasses) Meds Allergies Allergy/AdvReac Type Severity Reaction Status Date / Time No Known Allergies Allergy Verified 05/22/24 09:02 [No Known Allergies*] Home Medications ?Medication ?Instructions ?Recorded ?Confirmed ?Last Taken ?Type albuterol sulfate 2.5 mg/3 mL 2.5 mg inhalation Q4H PRN 11/14/19 05/26/24 Unknown History (0.083 %) solution for nebulization Shortness Of Breath ondansetron 4 mg disintegrating 1 tab PO Q6H PRN nausea/vomiting 06/18/21 05/26/24 Unknown History tablet Exam Airway Mallampati Class: II TM Dist: >3cm Neck ROM: Full Heart: rrr Lungs: cta Assessment and Plan Assessment Anesthesia Assessment: Anesthesia Plan Discussed Final Anesthetic Review NPO: Yes ASA Class: III Final Preanesthetic Review: No Changes in Pt Med Stat, Meds/Allgs Chart Reviewed and Consent Obtained/Reviewed Patient Risk: Low Procedure Risk: Low Anesthetic Plan Anesthetic Plan: MAC: Disposition: Standard PACU
[2024-06-05 10:02] VITALS: BP 144/99; PULSE 87; RESP 16; TEMP 36.9; O2SAT 97
[2024-06-05] MEDS: Tetracaine HCl/PF 0.5% Oph Sol 4 ML DROPS 1 DROP EYE-RIGHT (10:03)
[2024-06-05] MEDS: Cyclopentolate 1 % Ophth Sol 2 ML DRPBTL 1 DROP EYE-RIGHT ×3 (10:18→10:29)
[2024-06-05] MEDS: Tropicamide 1 % Ophth Sol 3 ML BTL 1 DROP EYE-RIGHT ×3 (10:19→10:30)
[2024-06-05] MEDS: Ketorolac Tromethamine 0.5% Op 5 ML DROPS 1 DROP EYE-RIGHT ×3 (10:20→10:31)
[2024-06-05] MEDS: Phenylephrine HCL 2.5% Oph SoL 2 ML BOTTLE 1 DROP EYE-RIGHT ×3 (10:21→10:32)
[2024-06-05] MEDS: Lactated Ringers 500 ML 80 ML IVCONT (10:22)
--- NOTE | 2024-06-05 10:35 | PC.NURSE ---
red scratch noted to right eye, operative side. Dr. Lemon at bedside to assess, okay to proceed with procedure.
--- NOTE | 2024-06-05 11:12 | P.PCNO_ITS ---
Ophthalmology Procedure Procedure Date of Service: 06/05/24 Ophthalmology Viscoelastic: Healon Duet Dual Pack Pro Ophthalmology Lenses: IOL Acrysof MP - MA60AC (22.) Procedure Notes: PREOPERATIVE DIAGNOSIS: Decreased visual acuity right eye secondary to cataract POSTOPERATIVE DIAGNOSIS: Same PROCEDURE: Right cataract extraction with intraocular lens insertion SURGEON: Landen Lemon M.D. ANESTHESIA: Topical/MAC ESTIMATED BLOOD LOSS: None COMPLICATIONS: None After obtaining informed consent, the patient was brought to the operating room suite and placed in the supine position. After adequate sedation per anesthesia, topical drops of Tetracaine were given to the right eye. The eye was then prepped and draped in the usual sterile fashion. The operating room microscope was then positioned over the operative eye and a lid speculum placed. A paracentesis was created. Viscoelastic was then instilled into the anterior chamber. A three plane incision was then created temporally, utilizing a 2.85 mm keratome. Capsulotomy forceps were then utilized to create a circular tear capsulotomy. Hydrodissection and hydrodelineation were carried out until adequate mobilization of the nucleus occurred. Phacoemulsification was then utilized to remove the dense central nuc leus followed by removal of the cortical material utilizing the automated aspiration irrigation unit. Viscoelastic was instilled into the posterior capsular bag followed by placement of a posterior chamber intraocular lens without difficulty. The residual Viscoelastic was then removed utilizing the automated IA machine. The wound was checked and found to be watertight. The patient tolerated the procedure well and the lid speculum was removed. Intracameral injection of Vigamox 0.1 mL followed by a subtenon injection of Kenalog-40 0.2 mL were administered. The patient will be seen in the a.m.
--- NOTE | 2024-06-05 11:12 | MHC.SHP ---
Pre-Procedural Eval Section A - 24 Hr Update-Section A only Date of Service: 06/05/24 The patient is an INPATIENT: No Changes since office visit: No Cold of Flu in the past 2 weeks, No New Medical Problems, No Changes in Medication and No Patient answered all questions The patient has been examined within 24 hours of the surgical procedure. The History & Physical has been completed within 30 days and I have reviewed it.: Yes Section B - Complete if H&P > 30 days Chief Complaint: Age-related nuclear cataract, right eye Allergies: Allergies Allergy/AdvReac Type Severity Reaction Status Date / Time No Known Allergies Allergy Verified 05/22/24 09:02 [No Known Allergies*] Plan Diagnosis/Plan: Unchanged I have reviewed the history and physical and performed a pertinent physical examination on my patient. No changes have occurred unless specified. Time Spent With Patient Time: Total time managing care of this patient today ____ minutes.
[2024-06-05 11:42] VITALS: BP 138/90; PULSE 77; RESP 16; TEMP 36.9; O2SAT 98
== END 2024-06-05 11:51 | disposition home or self-care (01) ==
PROVIDERS: PCP Physician Assistant; Visit Provider Ophthalmology
PROC: (CPT 66985; principal; 2024-06-05 11:30)
DX: H25.11 Age-related nuclear cataract, right eye (principal); H52.4 Presbyopia; H11.153 Pinguecula, bilateral; H18.413 Arcus senilis, bilateral; G80.8 Other cerebral palsy; I10 Essential (primary) hypertension; C50.911 Malignant neoplasm of unspecified site of right female breast; Z79.811 Long term (current) use of aromatase inhibitors; J45.20 Mild intermittent asthma, uncomplicated; K56.699 Other intestinal obstruction unspecified as to partial versus complete obstruction; K62.3 Rectal prolapse; D75.839 Thrombocytosis, unspecified; F32.A Depression, unspecified; Z91.81 History of falling; Z79.1 Long term (current) use of non-steroidal anti-inflammatories (NSAID); Z79.52 Long term (current) use of systemic steroids; Z79.899 Other long term (current) drug therapy; Z66 Do not resuscitate; Z98.890 Other specified postprocedural states
CPT/HCPCS: 66984; J2250; J2405; J3301; V2630

== ENCOUNTER 2024-06-20 08:12 | Outpatient (AMB) | payer OTHER, SELFPAY ==
--- NOTE | 2024-06-20 08:14 | A.OFFVIS_ITS ---
Vital Signs 06/20/24 08:22 Height 5 ft 3 in Weight 147 lb BMI 26.0 Intake Visit Reasons: Right knee pain Intake Note: Nayla is a 69 year old female who presents with complaints of progressively worsening right knee pain. She describes her pain as sharp in nature. She has had cortisone injections in the past which gave her fairly good relief. She has also had viscosupplementation injections which gave her minimal relief. She wishes to hold off on surgery for as long as possible. She has tried Tylenol and anti-inflammatory medicines which gave her minimal relief. She continues to ride a stationary bike for exercise. Allergies No Known Allergies [No Known Allergies*] Allergy (Verified 06/20/24 08:21) Medication List - Last Reconciled 06/20/24 by Eric Roldan MD albuterol sulfate 2.5 mg inhalation Q4H PRN amlodipine (Norvasc) 5 mg PO DAILY anastrozole (Arimidex) 1 tab PO DAILY cyanocobalamin (vitamin B-12) (Vitamin B-12) 1,000 mcg PO DAILY docusate sodium (Colace) 100 mg PO BID 30 days fluticasone propion-salmeterol 100-50 mcg/dose (Wixela Inhub) 1 inh inhalation BID 30 days gabapentin 900 mg (3 x 300 mg) PO TID ibuprofen 800 mg PO Q12H PRN 30 days [kotex pads As directed] lisinopril 20 mg PO DAILY 90 days montelukast 10 mg PO BEDTIME 90 days omeprazole 20 mg PO DAILY 30 days ondansetron 1 tab PO Q6H PRN Paxil CR (paroxetine HCl) 50 mg (2 x 25 mg) PO DAILY NS Paxil CR (paroxetine HCl) 12.5 mg PO DAILY NS [shower chair As directed] simethicone 180 mg PO BID 30 days [toilet arms As directed] [wipes As directed] [facility] Medical History (Updated 05/26/24 @ 12:18 by Bella Belle NP) Cataracts, bilateral Uses walker Cerebral palsy Frequent falls Colonic stricture Hx of flexible sigmoidoscopy Elevated platelet count Colonic stricture Breast CA Prolapse of intestine Rectal prolapse Invasive lobular carcinoma of breast in female Asthma MDD (major depressive disorder) Surgical History Hx of left cataract extraction (05/22/24) History of gastric surgery History of lumpectomy of right breast History of open sigmoidectomy Family History Father Family history unknown Mother Breast cancer Brother No problems noted. Sister History of leukemia Social History Household Members: None Housing: Apartment Are you a primary resident caregiver to a significant other at home: No Do you presently have visiting nurse or other home services: Yes ([employer] 21 hours/week) Alcohol intake: former Patient Tobacco Use Status: Never used Tobacco e-Cigarette/Vaping Use: Never Used Second Hand Smoke Exposure: No Advance Directives Date on File: 09/01/21 service: No Current occupational status: retired Cognitive needs: Yes (walker) Hearing needs: No Vision needs: Yes (reading glasses) Physical Exam Vital Signs: BMI result Body Mass Index 26.0 Const Other: Well-nourished well-developed very friendly female awake alert and oriented x3 in no acute distress Extrem Other: Bilateral lower extremity examination shows good capillary refill, no skin lesions noted, normal sensation light touch Right knee examination shows a minimal effusion, palpable crepitus with range of motion, pain with range of motion, no instability Office Procedures AMB Joint Injection/Aspiration Joint Injection/Aspiration Primary Site: right knee Prep: site was prepped using aseptic technique Injected: 40 mg of, DepoMedrol and 1% plain lidocaine Procedure: The patient tolerated the procedure well Coding 50567 - Large joint Procedure code (CPT) selection complete Results Reviewed Results Reviewed: X-rays of the patient's right knee taken previously show joint space narrowing, subchondral sclerosis, no acute bony abnormalities Assessment & Plan Assessment & Plan (1) Arthritis of right knee: Code(s): M17.11 - Unilateral primary osteoarthritis, right knee Category: Medical (2) Right knee pain: Code(s): M25.561 - Pain in right knee Category: Medical Plan Ms. Lepe presents with right knee pain due to degenerative joint disease. The risks and benefits of a right knee cortisone injection were discussed at length with the patient. The patient wished to proceed. She tolerated the injection well. She will continue with her home exercise program. She will contact me prior to her follow-up appointment in 3 months should any questions or concerns arise. Feel free to call me at any time should questions regarding her orthopedic management arise. I spent 22 minutes in reviewing the patient's records and imaging studies, kirstin tapia the patient and documenting in the medical record. Orders: Orders AMB Joint Injection/Aspiration Today M17.11 - Unilateral primary osteoarthritis, right knee Coding Level of Care Code Est Pt Level 3 (09517) Complex EM visit Add On G2211 Diagnoses Arthritis of right knee M17.11 Right knee pain M25.561 CPT Codes Coding - 52691 Large joint: 02676 - Large joint ([id number])
--- OUTSIDE RECORDS SUMMARY | 2024-06-20 08:19 | XMS_ITS | Clinical Summary ---
Author Organization [facility] Facility Address [address] [address] Care Team Providers Care Maple Products Maker Name Role Phone Polo Nascimento Primary Care Provider [phone] Social History Tobacco Use Types Packs/Day Years [...] Ended) 2024 11/09/2018, 11/09/2017, 11/25/2016 Pneumococcal Vaccine: 50+ Years (3 of 3 - PCV20 or PCV21) 11/15/2024 11/16/2019, 12/31/2015 Hepatitis B Vaccine Aged Out No longe r eligible based on patient's age to complete this topic Insurance [facility] Care Teams Maple Products Maker Relationship Specialty Start Date End Date Polo Nascimento PA [address], [address] [place] [address] PCP - General Physician Astrophysics Teacher 06/30/21
--- OUTSIDE RECORDS SUMMARY | 2024-06-20 08:19 | XMS_ITS | Patient Health Record ---
Author Organization [facility] Address [address] [place] [address] Care Team Providers Care Passenger Attendant Name Role Phone Polo Nascimento Primary Care Provider UnavailTin Rose Unavailable [phone] Reason For Referral No Information Problems Problem Type SNOMED Code ICD Code Onset Dates Problem Status W/U Status Risk Notes Problem Gastrointestinal anastomotic stricture (845091196) Gastrointestinal anastomotic stricture (K91.30) Active confirmed Plan Of Treatment Future Test Test Name Order Date FLEXIBLE SIGMOIDOSCOPY, DIAGNOSTIC 07/04 FLEXIBLE SIGMOIDOSCOPY, DIAGNOSTIC 07/22 FLEXIBLE SIGMOIDOSCOPY, DIAGNOSTIC 08/17 Insurance Providers Payer Name Payer Address Payer Phone Subscriber Number Group Number Insured Name Patient Relationship to Insured Coverage Start Date Coverage End Date [facility] [address] [place] [phone] [id number] YADIRA LAMBERT Self - patient is the insured
--- OUTSIDE RECORDS SUMMARY | 2024-06-20 08:20 | XMS_ITS | Clinical Summary ---
Author Organization [facility] Address [address] [place] [address] Care Team Providers Care Electronics Parts Sales Representative Name Role Phone AnaLanden Primary Care Provider [phone] Allergies No known active allergies Medications Medication [...] age to complete this topic Care Teams Electronics Parts Sales Representative Relationship Specialty Start Date End Date Landen Perez DO [address] [place] [id number] PCP - General 10/20/16
[2024-06-20 08:22] VITALS: BMI 26.0
== END 2024-06-20 08:36 | disposition home or self-care (01) ==
PROVIDERS: PCP Physician Assistant; Visit Provider Orthopaedic Surgery
DX: M17.11 Unilateral primary osteoarthritis, right knee (principal)
CPT/HCPCS: 20610; 99213

== ENCOUNTER → 2024-06-20 08:12 | Outpatient (BNVA) | payer OTHER, SELFPAY | PROVIDERS: PCP Physician Assistant; Visit Provider Orthopaedic Surgery | DX: M17.11 Unilateral primary osteoarthritis, right knee (principal); M25.561 Pain in right knee | CPT/HCPCS: 20610; 99212; J1010; J2003 ==

== ENCOUNTER 2024-07-12 10:04 | Outpatient (AMB) | payer OTHER, SELFPAY ==
--- NOTE | 2024-07-12 10:26 | A.OFFPC_ITS ---
Vital Signs 07/12/24 10:27 Height 5 ft 3 in Weight 145 lb BMI 25.7 BP 120/62 Blood Pressure Location Lt brachial Position Sitting Pulse 74 Pulse Source Pulse Oximeter Temp 96.8 F Temp Source Temporal Artery Scan Pulse Oximetry (%) 94 Oxygen Delivery Method Room Air Intake Visit Reasons: 4 month f/u Intake Note: Patient is here to follow up on HTN, Asthma. Transit Mechanic Required: No Director Of Primary: Not Required per policy Accompanied by: Self / Same As Patient Allergies No Known Allergies [No Known Allergies*] Allergy (Verified 07/12/24 10:40) Medication List - Last Reconciled 07/12/24 by Polo Nascimento PA-C albuterol sulfate 2.5 mg inhalation Q4H PRN amlodipine (Norvasc) 5 mg PO DAILY anastrozole (Arimidex) 1 tab PO DAILY cyanocobalamin (vitamin B-12) (Vitamin B-12) 1,000 mcg PO DAILY docusate sodium (Colace) 100 mg PO BID 30 days fluticasone propion-salmeterol 100-50 mcg/dose (Wixela Inhub) 1 inh inhalation BID 30 days gabapentin 900 mg (3 x 300 mg) PO TID ibuprofen 800 mg PO Q12H PRN 30 days [kotex pads As directed] lisinopril 20 mg PO DAILY 90 days montelukast 10 mg PO BEDTIME 90 days omeprazole 20 mg PO DAILY 30 days ondansetron 1 tab PO Q6H PRN Paxil CR (paroxetine HCl) 50 mg (2 x 25 mg) PO DAILY NS Paxil CR (paroxetine HCl) 12.5 mg PO DAILY NS [shower chair As directed] simethicone 180 mg PO BID 30 days [toilet arms As directed] [wipes As directed] Tobacco use date assessed: 07/12/24 Fall risk assessment: No Falls in past year Last assessed Fall Risk: 07/12/24 Dental Screening Dental Screen Date: 05/15/24 HPI 4 month f/u HPI Details Patient is a 69-year-old female here today follow-up visit ? patient has a past medical history significant for cerebral palsy, invasive ductal carcinoma of the breast, hypertension. Concern--> has noted slightly elevated fasting blood sugars. Patient concerned about this and has been working on being more physically active and reducing her carbs in her diet. .. Breast cancer:? 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 She is status post lobectomy for breast cancer, she is due for repeat imaging in February 2021.? She continues on anti hormonal therapy (arimidex) without side effect. Cerebral palsy:? Continues to be very active, lately has been having more recurrent falls due to balance issues in her leg. She reports her right knee has been giving out has reestablish care with a new orthopedics and is requesting a cortisone injection. She is interested in having home physical therapy to help her with balance and lower extremity strengthening. Now currently not driving .. Hypertension:? Blood pressure acceptable today in office.? Will continue current doses of blood pressure medication.? Denies any headache, chest discomfort, shortness of breath.? . Depression: Has been very well controlled with current dose of Paxil. .. Asthma: Has been well controlled with p.r.n. use of her albuterol inhaler and daily use of her Wixela maintenance inhaler. She is interested in restarting Singulair at night to help her breathe while lying down [facility] Medical History (Updated 07/12/24 @ 10:57 by Polo Nascimento PA-C) Cataracts, bilateral Uses walker Cerebral palsy Frequent falls Colonic stricture Hx of flexible sigmoidoscopy Elevated platelet count Colonic stricture Breast CA Prolapse of intestine Rectal prolapse Invasive lobular carcinoma of breast in female Asthma MDD (major depressive disorder) Surgical History Hx of left cataract extraction (05/22/24) History of gastric surgery History of lumpectomy of right breast History of open sigmoidectomy Family History Father Family history unknown Mother Breast cancer Brother No problems noted. Sister History of leukemia Social History Household Members: None Housing: Apartment Are you a primary client care consultant to a significant other at home: No Do you presently have visiting nurse or other home services: Yes (DISTRIBUTION SYSTEM OPERATOR 21 hours/week) Alcohol intake: former Patient Tobacco Use Status: Never used Tobacco e-Cigarette/Vaping Use: Never Used Second Hand Smoke Exposure: No Advance Directives Date on File: 09/01/21 service: No Current occupational status: retired Cognitive needs: Yes (walker) Hearing needs: No Vision needs: Yes (reading glasses) Questionnaire PHQ-9 Over the last 2 weeks, how often have you been bothered by any of the following problems? 1. Little interest or pleasure in doing things: not at all 2. Feeling down, depressed, or hopeless: not at all 3. Trouble falling or staying asleep, or sleeping too much: several days 4. Feeling tired or having little energy: not at all 5. Poor appetite or overeating: not at all 6. Feeling bad about yourself - or that you are a failure or have let yourself or your family down: not at all 7. Trouble concentrating on things, such as reading the newspaper or watching television: not at all 8. Moving or speaking so slowly that other people could have noticed. Or the opposite - being so fidgety or restless that you have been moving around a lot more than usual: not at all 9. Thoughts that you would be better off or of hurting yourself in some way: not at all Total score: 1 Depression Screening Interpretation: Negative Depression Screening Done: Yes 11622 - PHQ-9 Billing: Yes Source: Developed by Drs. Tin Arriaga, Sia Raymundo, Ean Miles and colleagues, with an educational bernarda from [employer]. Thrive Questionnaire Date Thrive assessed: 05/15/24 I am a: Patient What is your living situation today?: I have a steady place to live Within the past 12 months, did the food you bought not last and you didn't have the money to get more?: I choose not to answer this question Within the past 12 months, did you worry whether your food would run out before you got money to buy more?: I choose not to answer this question Do you have trouble paying for medicines?: No Do you have trouble getting transportation to medical appointments?: No Do you have trouble paying your heating and electricity bill?: No Do you have trouble taking care of your child, family member or friend?: No Do you have trouble with day-to-day activities such as bathing, preparing meals, shopping, managing finances, etc.?: I choose not to answer this question Are you currently unemployed and looking for a job?: No Are you interested in more education?: No Please select the resources that you would like help with: None Currently or been in a relationship where the following occur: No concerns reported THRIVE Score: 0 AUDIT C Alcohol Use Questionnaire (AUDIT-C) 1. How often do you have a drink containing alcohol?: Never Total Score: 0 BRITNEY-7 AMB Questionnaire BRITNEY-7 Date BRITNEY - 7 assessed: 05/15/24 Feeling nervous, anxious, or on edge: 0 = Not at all Not being able to stop or control worryin = Not at all Worrying too much about different things: 0 = Not at all Trouble relaxin = Not at all Being so restless that it is hard to sit still: 0 = Not at all Becoming easily annoyed or irritable: 0 = Not at all Feeling afraid as if something awful might happen: 0 = Not at all Total BRITNEY-7 score (0-4 normal; 5-9 mild; 10-14 moderate; 15-21 severe): 0 Source: Developed by Drs. Tin Arriaga, Sia Raymundo, Ean Miles and colleagues, with an educational bernarda from [employer]. BRITNEY-7 Assessment Billing BRITNEY-7 Assessment Tool: BRITNEY-7 Assessment 67508 Review of Systems Const Denies headache(s) Eyes Denies loss of vision ENT Denies vertigo, Denies dizziness, Denies headache(s) and Denies sore throat Card Denies chest pain, Denies leg edema and Denies lightheadedness Resp Denies cough, Denies hemoptysis and Denies wheezing GI Denies abdominal pain, Denies melena, Denies constipation, Denies diarrhea and Denies vomiting Denies urinary frequency, Denies dysuria and Denies urinary urgency Musc Denies arthralgias, Denies joint swelling, Denies numbness and Denies tingling Neuro Denies Abnormal speech present, Denies behavioral changes, Denies vertigo, Denies dizziness, Denies headache(s), Denies loss of vision, Denies memory loss, Denies numbness and Denies tingling Psych Denies anxiety, Denies behavioral changes, Denies depression, Denies memory loss and Denies panic attacks Mir/Lymph Denies easy bleeding and Denies easy bruising Aller/Immun Denies wheezing Physical exam (Primary Care) Vital Signs: Last Vital Signs Temp 96.8 F 07/12/24 10:27 Pulse 74 07/12/24 10:27 BP 120/62 07/12/24 10:27 Pulse Ox 94 07/12/24 10:27 Oxygen Delivery Method Room Air 07/12/24 10:27 BMI result Body Mass Index 25.7 Tobacco/Smoking Status: Tobacco use Status Tobacco use date assessed 07/12/24 07/12/24 10:32 Patient Tobacco Use Status Never used Tobacco 07/12/24 10:32 e-Cigarette/Vaping Use Never Used 07/12/24 10:32 PHQ-9: PHQ-9 Score PHQ-9: Total score 1 07/12/24 10:42 Depression Screening Interpretation: Negative Thrive Assessment: Date of Thrive Assessment Date Thrive assessed 05/15/24 07/12/24 10:32 Currently or been in a relationship where the following occur: No concerns reported Const General: healthy appearing, no acute distress, alert and awake Nutritional Appearance: well nourished Orientation/consciousness: oriented to person, oriented to place and oriented to time HENMT Ears: TM's normal bilaterally General nose exam: Normal nasal mucous membranes and turbinates present Eyes Conjunctivae: conjunctivae normal Sclerae: sclerae normal Pupils: Equal, round and reactive pupils present Neck Neck: Yes no lymphadenopathy and Yes no JVD Thyroid: Thyroid normal Carotids: no bruits Resp Effort & Inspection: normal respiratory effort and not tachypneic Auscultation: no crackles, no rales, no rhonchi and no wheezes Cardio Rate: regular rate Rhythm: regular rhythm Heart sounds: no murmurs and normal S1 and S2 GI Palpation (GI): Soft to palpation, nontender, no hepatomegaly and no splenomegaly Auscultation: normal bowel sounds Skin General skin exam: no rashes or lesions noted and dry skin Neuro General: oriented to person, oriented to place and oriented to time Cranial nerves: Yes Equal, round and reactive pupils present Speech: No Abnormal speech present Gait exam (Neuro): Normal gait present Motor exam (neuro): no tremor noted Extrem Right upper extremity: full ROM Left upper extremity: full ROM Right lower extremity: full ROM; no edema Left lower extremity: full ROM; no edema Psych Mental Status: mental status grossly normal Speech and movement: Normal speech and movement present Affect: normal affect Attitude: cooperative Thought process: Normal thought process present Coding Level of Care Code Est Pt Level 4 (76617) Diagnoses Spastic cerebral palsy, 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 Anemia, unspecified type D64.9 Anemia type: unspecified type Primary hypertension I10 Hypertension type: primary hypertension Impaired glucose metabolism R73.09 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, estrogen receptor negative C50.611; Z17.1 Breast location: axillary tail of breast Estrogen receptor status: negative Laterality: right Patient sex: female Additional Codes PHQ-9 - 61749 - PHQ-9 Billing: Yes ([id number]) BRITNEY-7 Assessment Billing - BRITNEY-7 Assessment Tool: BRITNEY-7 Assessment 69510 ([id number]) Assessment & Plan Assessment & Plan (1) Spastic cerebral palsy, congenital: Code(s): G80.1 - Spastic diplegic cerebral palsy Category: Medical Plan: As per HPI patient continues to be as physically active as she can, continues with moderate arthritic pain to which he uses gabapentin, acetaminophen and ib uprofen for. (2) Anemia: Code(s): D64.9 - Anemia, unspecified Category: Medical Qualifiers: Anemia type: unspecified type Qualified Code(s): D64.9 - Anemia, unspecified Plan: Patient's anemia has resolved. Will continue to follow CBC as she does continue to use NSAID on a daily basis due to her moderate to severe arthritic pain. She denies any overt signs of bleeding (3) HTN (hypertension): Code(s): I10 - Essential (primary) hypertension Category: Medical Qualifiers: Hypertension type: primary hypertension Qualified Code(s): I10 - Essential (primary) hypertension Plan: Patient's blood pressure acceptable today in office. Will continue her current dose of antihypertensive medication with goal blood pressure to remain below 140/90 (4) Impaired glucose metabolism: Code(s): R73.09 - Other abnormal glucose Category: Medical Plan: Noted slightly elevated fasting blood sugars. Will check an A1c at upcoming l abs. She will work on reducing sugar and carbohydrates in her diet. (5) Breast CA: Code(s): C50.919 - Malignant neoplasm of unspecified site of unspecified female breast Category: Medical Qualifiers: Breast location: axillary tail of breast Estrogen receptor status: negative Laterality: right Patient sex: female Qualified Code(s): C50.611 - Malignant neoplasm of axillary tail of right female breast; Z17.1 - Estrogen receptor negative status [ER-] Plan: Breast cancer has been in remission. Continues on anastrozole without side effect. Continues to regularly get her mammograms. Orders: Orders Complete Blood Count no Diff Today D64.9 - Anemia, unspecified Comprehensive [place]. Panel Fast Today I10 - Essential (primary) hypertension Hemoglobin A1c Today I10 - Essential (primary) hypertension, R73.09 - Other abnormal glucose Microalbumin, Random (w Creat) Today I10 - Essential (primary) hypertension
[2024-07-12 10:27] VITALS: BP 120/62; PULSE 74; TEMP 36; O2SAT 94; BMI 25.7
--- OUTSIDE RECORDS SUMMARY | 2024-07-12 10:40 | XMS_ITS | Clinical Summary ---
Author Organization [facility] Facility Address [address] [address] Care Team Providers Care Stitcher Set Up Operator Automatic Name Role Phone Polo Nascimento Primary Care Provider [phone] Social History Tobacco Use Types Packs/Day Years [...] age to complete this topic Insurance [facility] Care Teams Stitcher Set Up Operator Automatic Relationship Specialty Start Date End Date Polo Nascimento PA [address], [address] [place] [address] PCP - General Physician Wheelchair Driver 06/30/21
== END 2024-07-12 10:58 | disposition home or self-care (01) ==
LOC: HO.HMCH 10:05
PROVIDERS: PCP Physician Assistant; Visit Provider Physician Assistant
DX: D64.9 Anemia, unspecified (principal); G80.1 Spastic diplegic cerebral palsy; C50.611 Malignant neoplasm of axillary tail of right female breast; I10 Essential (primary) hypertension; R73.09 Other abnormal glucose; Z17.1 Estrogen receptor negative status [ER-]

== ENCOUNTER → 2024-07-12 10:04 | Outpatient (BNVA) | payer OTHER, SELFPAY | PROVIDERS: PCP Physician Assistant; Visit Provider Physician Assistant | DX: I10 Essential (primary) hypertension (principal); J45.909 Unspecified asthma, uncomplicated; F32.A Depression, unspecified; G80.1 Spastic diplegic cerebral palsy; D64.9 Anemia, unspecified; R73.09 Other abnormal glucose; Z85.3 Personal history of malignant neoplasm of breast | CPT/HCPCS: 96127; 99212 ==

== ENCOUNTER 2024-07-26 09:26 | Outpatient (AMB) | payer OTHER, SELFPAY ==
--- NOTE | 2024-07-26 09:28 | A.OFFVIS_ITS ---
Vital Signs 07/26/24 09:31 Height 5 ft 3 in Weight 145 lb BMI 25.7 Intake Visit Reasons: OV- Bilateral shoulder pain, last inj 04/11/24 Intake Note: Nayla is a 69 year old female who presents with complaints of bilateral shoulder pain. She describes her pains as sharp in nature. She continues with her home stretching program. She has tried Tylenol and anti-inflammatory medicines which gave her only mild relief. She wishes to hold off on surgery if at all possible. Allergies No Known Allergies (No Known Allergies*) Allergy (Verified 07/12/24 10:40) Medication List - Last Reconciled 07/26/24 by Eric Roldan MD albuterol sulfate 2.5 mg inhalation Q4H PRN amlodipine (Norvasc) 5 mg PO DAILY anastrozole (Arimidex) 1 tab PO DAILY cyanocobalamin (vitamin B-12) (Vitamin B-12) 1,000 mcg PO DAILY docusate sodium (Colace) 100 mg PO BID 30 days fluticasone propion-salmeterol 100-50 mcg/dose (Wixela Inhub) 1 inh inhalation BID 30 days gabapentin 900 mg (3 x 300 mg) PO TID ibuprofen 800 mg PO Q12H PRN 30 days [kotex pads As directed] lisinopril 20 mg PO DAILY 90 days montelukast 10 mg PO BEDTIME 90 days omeprazole 20 mg PO DAILY 30 days ondansetron 1 tab PO Q6H PRN Paxil CR (paroxetine HCl) 50 mg (2 x 25 mg) PO DAILY NS Paxil CR (paroxetine HCl) 12.5 mg PO DAILY NS [shower chair As directed] simethicone 180 mg PO BID 30 days [toilet arms As directed] [wipes As directed] [facility] Medical History (Updated 07/12/24 @ 10:57 by Polo Nascimento PA-C) Cataracts, bilateral Uses walker Cerebral palsy Frequent falls Colonic stricture Hx of flexible sigmoidoscopy Elevated platelet count Colonic stricture Breast CA Prolapse of intestine Rectal prolapse Invasive lobular carcinoma of breast in female Asthma MDD (major depressive disorder) Surgical History Hx of left cataract extraction (05/22/24) History of gastric surgery History of lumpectomy of right breast History of open sigmoidectomy Family History Father Family history unknown Mother Breast cancer Brother No problems noted. Sister History of leukemia Social History Household Members: None Housing: Apartment Are you a primary health care attorney to a significant other at home: No Do you presently have visiting nurse or other home services: Yes (PRACTICE PROFESSIONAL 21 hours/week) Alcohol intake: former Patient Tobacco Use Status: Never used Tobacco e-Cigarette/Vaping Use: Never Used Second Hand Smoke Exposure: No Advance Directives Date on File: 09/01/21 service: No Current occupational status: retired Cognitive needs: Yes (walker) Hearing needs: No Vision needs: Yes (reading glasses) Physical Exam Const Other: Well-nourished well-developed very friendly female awake alert and oriented x3 in no acute distress Extrem Other: Bilateral upper extremity examination shows good capillary refill, no skin lesio ns noted, normal sensation light touch Bilateral shoulder examination shows 4 out of 5 strength with supraspinatus testing, positive impingement signs, no instability Office Procedures AMB Joint Injection/Aspiration Joint Injection/Aspiration Primary Site: left shoulder Prep: site was prepped using aseptic technique Injected: 40 mg of, DepoMedrol and 1% plain lidocaine Procedure: The patient tolerated the procedure well Coding 41615 - Large joint Procedure code (CPT) selection complete AMB Joint Injection/Aspiration Joint Injection/Aspiration Primary Site: right shoulder Prep: site was prepped using aseptic technique Injected: 40 mg of, DepoMedrol and 1% plain lidocaine Procedure: The patient tolerated the procedure well Coding 54995 - Large joint Procedure code (CPT) selection complete Assessment & Plan Assessment & Plan (1) Impingement syndrome of left shoulder: Code(s): M75.42 - Impingement syndrome of left shoulder Category: Medical (2) Impingement of right shoulder: Code(s): M25.811 - Other specified joint disorders, right shoulder Category: Medical Plan Ms. Lepe presents with bilateral shoulder pains due to impingement syndrome. The risks and benefits of bilateral shoulder cortisone injections were discussed at length with the patient. The patient wished to proceed. She tolerated the injections well. She will continue with her home stretching program to prevent stiffness. She will contact me prior to her follow-up appointment in 3 months should any questions or concerns arise. Feel free to call me at any time should questions regarding her orthopedic management arise. I spent 21 minutes in reviewing the patient's records and imaging studies, seeing the patient and documenting in the medical record. Orders: Orders AMB Joint Injection/Aspiration Today M25.811 - Other specified joint disorders, right shoulder AMB Joint Injection/Aspiration Today M75.42 - Impingement syndrome of left shoulder Coding Level of Care Code Est Pt Level 3 (09811) Complex EM visit Add On G2211 Diagnoses Impingement syndrome of left shoulder M75.42 Impingement of right shoulder M25.811 CPT Codes Coding - 85754 Large joint: 03664 - Large joint ([id number]) Coding - 43866 Large joint: 51557 - Large joint ([id number])
[2024-07-26 09:31] VITALS: BMI 25.7
--- OUTSIDE RECORDS SUMMARY | 2024-07-26 10:23 | XMS_ITS | Clinical Summary ---
Author Organization [facility] Facility Address [address] [address] Care Team Providers Care Magnetic Tape Composer Operator Name Role Phone Polo Nascimento Primary Care Provider [phone] Social History Tobacco Use Types Packs/Day Years [...] patient's age to complete this topic Insurance [facility] Care Teams Magnetic Tape Composer Operator Relationship Specialty Start Date End Date Polo Nascimento PA [address], [address] [place] [address] PCP - General Physician Dairy Tester 06/30/21
== END 2024-07-26 09:55 | disposition home or self-care (01) ==
LOC: HO.HOS 09:27
PROVIDERS: PCP Physician Assistant; Visit Provider Orthopaedic Surgery
DX: M75.42 Impingement syndrome of left shoulder (principal); M25.811 Other specified joint disorders, right shoulder
CPT/HCPCS: 20610; 99213

== ENCOUNTER → 2024-07-26 09:26 | Outpatient (BNVA) | payer OTHER, SELFPAY | PROVIDERS: PCP Physician Assistant; Visit Provider Orthopaedic Surgery | DX: M75.42 Impingement syndrome of left shoulder (principal); M25.811 Other specified joint disorders, right shoulder | CPT/HCPCS: 20610; 99212; J1010; J2003 ==

== ENCOUNTER 2024-09-18 07:35 | Outpatient (REF) | payer OTHER, SELFPAY ==
--- OUTSIDE RECORDS SUMMARY | 2024-09-18 07:38 | XMS_ITS | Clinical Summary ---
Author Organization [facility] Facility Address [address] [address] Care Team Providers Care Cop Winder Name Role Phone Polo Nascimento Primary Care Provider [phone] Social History Tobacco Use Types Packs/Day Years [...] Cancer Screening: Sigmoidoscopy 2003 Influenza Vaccine (#1) 2024 9, 11/09/2017, 11/25/2016 Pneumococcal Vaccine: 50+ Years (3 of 3 - PCV20 or PCV21) 11/15/2024 11/16/2019, 12/31/2015 Hepatitis B Vaccine Aged Out No longe r eligible based on patient's age to complete this topic Insurance [facility] Care Teams Cop Winder Relationship Specialty Start Date End Date Polo Nascimento PA [address], [address] [place] [address] PCP - General Physician Grinder Machine Setter 06/30/21
--- OUTSIDE RECORDS SUMMARY | 2024-09-18 07:38 | XMS_ITS | Clinical Summary ---
Author Organization [facility] Address [address] [place] [address] Care Team Providers Care Computer Teacher Name Role Phone AnaLanden Primary Care Provider [phone] Allergies No known active allergies Medications Medication [...] Screening (DEXA Scan) 2019 Influenza Vaccine (#1) 2024 9, 11/09/2017, 11/25/2016 Pneumococcal Vaccine (3 of [...] age to complete this topic Care Teams Computer Teacher Relationship Specialty Start Date End Date Landen Perez DO [address] [place] [id number] PCP - General 10/20/16
--- OUTSIDE RECORDS SUMMARY | 2024-09-18 07:38 | XMS_ITS | Patient Health Record ---
Author Organization [facility] Address [address] [place] [address] Care Team Providers Care Ion Implant Machine Operator Name Role Phone Polo Nascimento Primary Care Provider UnavailTin Rose Unavailable [phone] Reason For Referral No Information Problems Problem Type SNOMED Code ICD Code Onset Dates Problem Status W/U Status Risk Notes Problem Gastrointestinal anastomotic stricture ([id number]) Gastrointestinal anastomotic stricture (K91.30) Active confirmed Plan Of Treatment Future Test Test Name Order Date FLEXIBLE SIGMOIDOSCOPY, DIAGNOSTIC 07/04 FLEXIBLE SIGMOIDOSCOPY, DIAGNOSTIC 07/22 FLEXIBLE SIGMOIDOSCOPY, DIAGNOSTIC 08/17 Insurance Providers Payer Name Payer Address Payer Phone Subscriber Number Group Number Insured Name Patient Relationship to Insured Coverage Start Date Coverage End Date [facility] [address] [place] [address] [id number] YADIRA LAMBERT Self - patient is the insured
--- OUTSIDE RECORDS SUMMARY | 2024-09-18 07:38 | XMS_ITS | Encounter Summary ---
Author Organization [facility] Address [address] [place] [address] Phone Care Team Providers Care Spinning Machine Tender Name Role Phone Polo Nascimento Primary Care Provider + Encounter Details Date Type Department Care Team (Late st Contact Info) Description 11/21/2021 Procedure Pass [facility], Ct Scan - [facility] [address] [place] [address] Social History Tobacco Use Types Packs/Day Years Used Date Smoking Tobacco: Never Smokeless Tobacco: Never Comments Unknown Sex and Gender Information Value Date Recorded Sex Assigned at Not on file Legal Sex Female 6:25 PM EDT Gender Identity Not on file Sexual Orientation Not on file documented as of this encounter Functional Status * Calculated C-SSRS Risk Score (Lifetime/Recent) Answer Date of Assessment Author No Risk Indicated 11/21/2021 4:21 PM EDT Jose Bunn RN * [place] Suicide Severity Rating Scale (Screener/Recent Self-Report) Question Answer Date of Assessment Author 1. Wish to be (Past 1 Month) No 022 4:21 PM EDT Jose Bunn RN 2. Non-Specific Active Suici christie Thoughts (Past 1 Month) No 11/21/2021 4:21 PM EDT Rich Bunn, KASSY 6. Suicidal Behavior (Lifetime) No 4:21 PM EDT Jose Bunn RN documented as of this encounter Plan of Treatment Not on file documented as of this encounter Visit Diagnoses Not on filedocumented in this encounter Care Teams Spinning Machine Tender Relationship Specialty Start Date End Date Polo Nascimento PA [address] [place] [address] PCP - General 10/24/20 documented as of this encounter Additional Source Comments The information contained in this document represents components of the legal health record. It is not the complete legal health record.[facility]
--- OUTSIDE RECORDS SUMMARY | 2024-09-18 07:38 | XMS_ITS ---
Author Name [facility] Organization Unknown History of Medication Use Medication Directions Dispensed Refills Start Date End Date Stat lidocaine (PF) 10 mg/mL (1 %) injection solution Take 4 mL by injection route. 07/27/2022 08/20/2023 completed Kenalog 40 mg/mL suspension for injection Take 1 mL by injection route. 07/27/2022 active Mapap Arthritis Pain 650 mg tablet,extended release TAKE ONE TABLET BY MOUTH EVERY 12 HOURS 07/27/2022 completed ondansetron 4 mg disintegrating tablet DISSOLVE ONE TABLET BY MOUTH EVERY 6 TO 8 HOURS NEEDED FOR NAUSEA AND VOMITING. 07/27/2022 completed lidocaine (PF) 10 mg/mL (1 %) injection solution active amlodipine 5 mg tablet TAKE ONE TABLET BY MOUTH EVERY DAY active anastrozole 1 mg tablet TAKE 1 TABLET BY MOUTH DAILY. 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 active 2022-04-28 ProblemAct [facility] ECT Osteoarthritis of right glenohumeral joint active 2022-07-27 ProblemAct [facility] T Pain of left shoulder joint active 2022-10-20 ProblemAct [facility] Pain of right shoulder joint active 2022-10-20 ProblemAct [facility] Arthritis of joint of right shoulder region active 2022-04-28 ProblemAct [facility] NECT Osteoarthritis of left glenohumeral joint active 2022-07-27 ProblemAct [facility] T Encounters Encounter Type Encounter Reason Primary Diagnosis Location Date Ambulatory [facility] [place] 08/24/2023 Ambulatory [facility] [place] 08/24/2023 Ambulatory [facility] [place] 08/20/2023 Ambulatory [facility] [place] 07/07/2023 Amb[facility] [place] 05/14/2023 Ambulatory [facility] [place] 05/07/2023 Ambulatory [facility] [place] 03/03/2023 Ambulatory [facility] [place] 04/30/2022 Ambulatory [facility] [place] 04/30/2022
[2024-09-18 08:12] LABS: Hematocrit 37.6 % (37.0-47.0); Hemoglobin 12.2 g/dl (12.0-16.0); Mean Corpuscular HGB Conc 32.4 g/dl (31.0-35.0); Mean Corpuscular Hemoglobin 28.7 pg (27.0-33.0); Mean Corpuscular Volume 88.5 fL (80.0-98.0); NRBC Abs Auto 0.000 X10*3/uL (0.0-0.012); NRBC Pct Auto 0.0 /100WBC (0.0-0.2); Platelet Count 222 X10*3/uL (160-400); Red Blood Count 4.25 X10*6/uL (4.20-5.50); White Blood Count 4.3 X10*3/uL (4.8-10.8)
[2024-09-18 08:23] LABS: Hemoglobin A1C 131.5687 umol/L; Total Hemoglobin (HGBA1C) 3308.9475 umol/L
[2024-09-18 08:53] LABS: Alanine Aminotransferase 18 U/L (0-31); Albumin Level 4.3 g/dL (3.5-5.0); Alkaline Phosphatase 44 U/L (39-117); Anion Gap 11 (12-20); Aspartate Amino Transferase 23 U/L (5-31); Blood Urea Nitrogen 24 mg/dL (9-16); Calcium 9.2 mg/dL (8.4-10.2); Carbon Dioxide 24 mmol/L (22-29); Chloride 113 mmol/L (96-108); Estimated Glomerular Filt Rate > 60; Potassium 4.2 mmol/L (3.3-5.1); Sodium 144 mmol/L (135-145); Total Protein 6.8 g/dL (6.5-8.0)
[2024-09-18 09:04] LABS: Microalbum/Creatinine Ratio Ur 10.0 ug/mg cr (<30)
== END 2024-09-18 07:36 | disposition home or self-care (01) ==
LOC: HO.LAB 07:35
PROVIDERS: PCP Physician Assistant; Visit Provider Physician Assistant
DX: I10 Essential (primary) hypertension (principal); D64.9 Anemia, unspecified; R73.09 Other abnormal glucose
CPT/HCPCS: 36415; 80053; 82043; 82570; 83036; 85027

== ENCOUNTER 2024-10-03 08:48 | Outpatient (AMB) | payer OTHER, SELFPAY ==
[2024-10-03 08:52] VITALS: BP 130/72; PULSE 77; TEMP 36.6; O2SAT 95; BMI 25.7
--- NOTE | 2024-10-03 08:52 | A.OFFPC_ITS ---
Vital Signs 10/03/24 08:52 Height 5 ft 3 in Weight 145 lb 2 oz BMI 25.7 BP 130/72 Blood Pressure Location Lt brachial Position Sitting Pulse 77 Pulse Source Pulse Oximeter Temp 97.9 F Temp Source Temporal Artery Scan Pulse Oximetry (%) 95 Oxygen Delivery Method Room Air Intake Visit Reasons: Annual Exam Intake Note: Patient is here today for a physical. Color Depositing Machine Tender Required: No Restaurant And Bar Manager: Not Required per policy Accompanied by: Self / Same As Patient Allergies No Known Allergies (No Known Allergies*) Allergy (Verified 10/03/24 09:20) Medication List - Last Reconciled 10/03/24 by Polo Nascimento PA-C albuterol sulfate 2.5 mg inhalation Q4H PRN amlodipine (Norvasc) 5 mg PO DAILY anastrozole (Arimidex) 1 tab PO DAILY cyanocobalamin (vitamin B-12) (Vitamin B-12) 1,000 mcg PO DAILY docusate sodium (Colace) 100 mg PO BID 30 days fluticasone propion-salmeterol 100-50 mcg/dose (Wixela Inhub) 1 inh inhalation BID 30 days gabapentin 900 mg (3 x 300 mg) PO TID ibuprofen 800 mg PO Q12H PRN 30 days [kotex pads As directed] lisinopril 20 mg PO DAILY 90 days montelukast 10 mg PO BEDTIME 90 days omeprazole 20 mg PO DAILY 30 days ondansetron 1 tab PO Q6H PRN Paxil CR (paroxetine HCl) 50 mg (2 x 25 mg) PO DAILY NS Paxil CR (paroxetine HCl) 12.5 mg PO DAILY NS [shower chair As directed] simethicone 180 mg PO BID 30 days [toilet arms As directed] [wipes As directed] Tobacco use date assessed: 10/03/24 Fall risk assessment: No Falls in past year Last assessed Fall Risk: 10/03/24 Dental Screening Dental Screen Date: 05/15/24 HPI Annual Exam HPI Details Patient is a 69-year-old female here today follow-up visit ? patient has a past medical history significant for cerebral palsy, invasive ductal carcinoma of the breast, hypertension. Impaired glucose metabolism: Most recent A1c of 5.8. has noted slightly elevated fasting blood sugars. Patient concerned about this and has been working on being more physically active and reducing her carbs in her diet. .. Breast cancer:? 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 She is status post lobectomy for breast cancer, she is due for repeat imaging in February 2021.? She continues on anti hormonal therapy (arimidex) without side effect. Cerebral palsy:? Continues to be very active, lately has been having more recurrent falls due to balance issues in her leg. She reports her right knee has been giving out has reestablish care with a new orthopedics and is requesting a cortisone injection. She is interested in having home physical therapy to help her with balance and lower extremity strengthening. Now currently not driving .. Hypertension:? Blood pressure acceptable today in office.? Will continue current doses of blood pressure medication.? Denies any headache, chest discomfort, shortness of breath.? . Depression: Has been very well controlled with current dose of Paxil. .. Asthma: Has been well controlled with p.r.n. use of her albuterol inhaler and daily use of her Wixela maintenance inhaler. She is interested in restarting Singulair at night to help her breathe while lying down Mammogram: Done in March of 2024, BI-RADS 2 Colorectal cancer screening: Followed by GI specialty Dr. Gillis- has had rectal prolapse Vaccines: Up-to-date with COVID vaccine, pneumonia vaccine, tetanus vaccine, RSV vaccine,, shingles vaccine Laboratory Tests 09/28/23 01/28/24 05/05/24 09:44 10:00 08:41 WBC RBC 4.40 Creatinine 0.82 Fasting Glucose 102 H 109 H Hemoglobin A1c % Vitamin B12 Urine Microalbumin 05/26/24 09/18/24 09/18/24 10:18 07:55 07:56 WBC 4.7 L 4.3 L RBC 4.42 4.25 Creatinine Fasting Glucose 106 H Hemoglobin A1c % 5.8 Vitamin B12 > 2000 H Urine Microalbumin 23.0 PFSH Medical History Cataracts, bilateral Uses walker Cerebral palsy Frequent falls Colonic stricture Hx of flexible sigmoidoscopy Elevated platelet count Colonic stricture Breast CA Prolapse of intestine Rectal prolapse Invasive lobular carcinoma of breast in female Asthma MDD (major depressive disorder) Surgical History Hx of left cataract extraction (05/22/24) History of gastric surgery History of lumpectomy of right breast History of open sigmoidectomy Family History Father Family history unknown Mother Breast cancer Brother No problems noted. 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) Alcohol intake: former Patient Tobacco Use Status: Never used Tobacco e-Cigarette/Vaping Use: Never Used Second Hand Smoke Exposure: No Advance Directives Date on File: 09/01/21 service: No Current occupational status: retired Cognitive needs: Yes (walker) Hearing needs: No Vision needs: Yes (reading glasses) Questionnaire Thrive Questionnaire Date Thrive assessed: 07/12/24 I am a: Patient What is your living situation today?: I have a steady place to live Within the past 12 months, did the food you bought not last and you didn't have the money to get more?: I choose not to answer this question Within the past 12 months, did you worry whether your food would run out before you got money to buy more?: I choose not to answer this question Do you have trouble paying for medicines?: No Do you have trouble getting transportation to medical appointments?: No Do you have trouble paying your heating and electricity bill?: No Do you have trouble taking care of your child, family member or friend?: No Do you have trouble with day-to-day activities such as bathing, preparing meals, shopping, managing finances, etc.?: I choose not to answer this question Are you currently unemployed and looking for a job?: No Are you interested in more education?: No Please select the resources that you would like help with: None Currently or been in a relationship where the following occur: No concerns reported THRIVE Score: 0 BRITNEY-7 AMB Questionnaire BRITNEY-7 Date BRITNEY - 7 assessed: 05/15/24 Source: Developed by Drs. Tin Arriaga, Sia Raymundo, Ean Miles and colleagues, with an educational bernarda from [employer]. ACT Questionnaire In the past 4 weeks, how much of the time did your asthma keep you from getting as much done at work, school or at home?: None of the time During the past 4 weeks, how often have you had shortness of breath?: Not at all During the past 4 weeks, how often did your asthma symptoms wake you up at night or earlier than usual in the morning?: Not at all During the past 4 weeks, how often have you had to use your rescue inhaler or nebulizer medication?: Not at all How would you rate your asthma control during the past 4 weeks?: Completely controlled ACT Interpretation: Negative Score: 25 Review of Systems Const Denies body aches, Denies chills, Denies excessive sweating, Denies fatigue, Denies fever(s) and Denies headache(s) Eyes Denies blurry vision ENT Denies dysphagia, Denies vertigo, Denies dizziness, Denies headache(s), Denies hearing loss and Denies tinnitus Card Denies chest pain, Denies chest pain with activity, Denies syncope, Denies irregular heart rhythm and Denies dyspnea Resp Denies chest congestion, Denies cough, Denies hemoptysis, Denies dyspnea and Denies wheezing GI Denies abdominal pain, Denies melena, Denies hematochezia, Denies coffee ground emesis, Denies dysphagia, Denies diarrhea, Denies nausea and Denies vomiting Denies urinary frequency, Denies dysuria, Denies urinary hesitancy and Denies urinary urgency Musc Denies arthralgias, Denies limited range of motion, Denies muscle cramps and Denies muscle weakness Skin/Breast Denies rash and Denies skin ulcer Neuro Denies Abnormal speech present, Denies confusion, Denies vertigo, Denies dizziness, Denies syncope, Denies headache(s), Denies memory loss and Denies seizure-like activity Psych Denies anxiety, Denies confusion, Denies depression, Denies memory loss, Denies panic attacks and Denies paranoia Endo Denies excessive sweating, Denies fatigue, Denies flushing, Denies polydipsia and Denies polyuria Aller/Immun Denies wheezing Physical exam (Primary Care) Vital Signs: Last Vital Signs Temp 97.9 F 10/03/24 08:52 Pulse 77 10/03/24 08:52 BP 130/72 10/03/24 08:52 Pulse Ox 95 10/03/24 08:52 Oxygen Delivery Method Room Air 10/03/24 08:52 BMI result Body Mass Index 25.7 Tobacco/Smoking Status: Tobacco use Status Tobacco use date assessed 10/03/24 10/03/24 08:56 Patient Tobacco Use Status Never used Tobacco 10/03/24 08:56 e-Cigarette/Vaping Use Never Used 10/03/24 08:56 Thrive Assessment: Date of Thrive Assessment Date Thrive assessed 07/12/24 10/03/24 08:56 Currently or been in a relationship where the following occur: No concerns reported Const General: cooperative, comfortable, no acute distress, alert and awake; No confusion Orientation/consciousness: oriented to person, oriented to place, patient oriented x3 and No confusion HENMT Head: Yes normocephalic Ears: external ears normal and TM's normal bilaterally Face and sinus: No sinus tenderness Mouth: Normal oral and palatal mucosa present and tongue normal Teeth and gingiva: dentition normal and gingiva normal Throat: Yes posterior oropharynx normal, Yes tonsils normal and Yes uvula midline Eyes Conjunctivae: conjunctivae normal Sclerae: sclerae normal Pupils: Equal, round and reactive pupils present EOM: EOMs intact bilaterally Direct Ophthalmoscopy: No no photophobia Neck Neck: Yes no lymphadenopathy, No tender and Yes no JVD Thyroid: Thyroid normal Carotids: no bruits Chest Chest palpation & inspection: no tenderness Resp Effort & Inspection: normal respiratory effort, no audible wheezes, not labored and no stridor Auscultation: no crackles, no rales, no rhonchi and no wheezes Cardio Jugular venous distension: no JVD Rate: regular rate, not bradycardic and not tachycardic Rhythm: regular rhythm Bruits: no carotid bruits Peripheral pulses: Peripheral pulses 2+ throughout GI Inspection: Yes normal to inspection, No abdominal wall ecchymosis and No visible herniation Palpation (GI): Soft to palpation, nontender, no guarding, not rigid and No hepatosplenomegaly present Auscultation: normoactive bowel sounds General: Yes no CVA tenderness Back/Spine/Pelvis Back: no CVA tenderness and No back tenderness Cervical Spine: cervical ROM normal Thoracic/Lumbar Spine: thoracic and lumbar spine normal to inspection, straight leg raise negative bilaterally, No thoraco-lumbar ROM limited and No lumbar spinal tenderness Skin Lesions: no lesions Rashes: no rashes Wounds: no wounds Neuro General: oriented to person, oriented to place, patient oriented x3, CN's II-XI intact bilaterally and No confusion Cranial nerves: Yes Equal, round and reactive pupils present and Yes Normal accommodation reflex present Cognition (Neuro): normal cognition Speech: No Abnormal speech present Gait exam (Neuro): Normal gait present Motor exam (neuro): 5/5 motor strength present throughout Extrem Right upper extremity: full ROM; no cyanosis Left upper extremity: full ROM; no cyanosis Right lower extremity: no edema Left lower extremity: no edema Psych Appearance: grossly normal Mental Status: mental status grossly normal Affect: normal affect Attitude: cooperative Thought process: Normal thought process present Coding Level of Care Code Est Pt Prev Care >65y(15739) Diagnoses Annual physical exam Z00.00 Spastic cerebral palsy, 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 Anemia, unspecified type D64.9 Anemia type: unspecified type Primary hypertension I10 Hypertension type: primary hypertension Impaired glucose metabolism R73.09 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, estrogen receptor negative C50.611; Z17.1 Breast location: axillary tail of breast Estrogen receptor status: negative Patient sex: female Laterality: right Mild intermittent asthma without complication J45.20 Asthma severity: mild Asthma persistence: intermittent Asthma complication type: uncomplicated Additional Codes Asthma Control Questionnaire - ACT Interpretation: Negative ([id number]) Assessment & Plan Assessment & Plan (1) Annual physical exam: Code(s): Z00.00 - Encounter for general adult medical examination without abnormal findings Category: Medical Plan: as per HPI (2) Spastic cerebral palsy, congenital: Code(s): G80.1 - Spastic diplegic cerebral palsy Category: Medical Plan: As per HPI patient continues to be as physically active as she can, continues with moderate arthritic pain to which he uses gabapentin, acetaminophen and ibuprofen for. (3) Anemia: Code(s): D64.9 - Anemia, unspecified Category: Medical Qualifiers: Anemia type: unspecified type Qualified Code(s): D64.9 - Anemia, unspecified Plan: Patient's anemia has resolved. Will continue to follow CBC as she does continue to use NSAID on a daily basis due to her moderate to severe arthritic pain. She denies any overt signs of bleeding (4) HTN (hypertension): Code(s): I10 - Essential (primary) hypertension Category: Medical Qualifiers: Hypertension type: primary hypertension Qualified Code(s): I10 - Essential (primary) hypertension Plan: Patient's blood pressure acceptable today in office. Will continue her current dose of antihypertensive medication with goal blood pressure to remain below 140/90 (5) Impaired glucose metabolism: Code(s): R73.09 - Other abnormal glucose Category: Medical Plan: Patient has borderline high fasting blood sugar, A1c of 5.8. She will work on dietary modifications to reduce her blood sugars. . (6) Breast CA: Code(s): C50.919 - Malignant neoplasm of unspecified site of unspecified female breast Category: Medical Qualifiers: Breast location: axillary tail of breast Estrogen receptor status: negative Patient sex: female Laterality: right Qualified Code(s): C50.611 - Malignant neoplasm of axillary tail of right female breast; Z17.1 - Estrogen receptor negative status [ER-] Plan: Breast cancer has been in remission. Continues on anastrozole without side effect. Continues to regularly get her mammograms. (7) Asthma: Code(s): J45.909 - Unspecified asthma, uncomplicated Category: Medical Qualifiers: Asthma severity: mild Asthma persistence: intermittent Asthma complication type: uncomplicated Qualified Code(s): J45.20 - Mild intermittent asthma, uncomplicated Plan: Patient reports her asthma has been well controlled with use of her maintenance inhaler. Otherwise denies any nighttime awakenings with asthma symptoms or recent asthma exacerbations Orders: Orders Comprehensive [place]. Panel Fast Today R73.09 - Other abnormal glucose Complete Blood Count no Diff Today I10 - Essential (primary) hypertension Hemoglobin A1c Today R73.09 - Other abnormal glucose Medications: Refilled fluticasone propion-salmeterol 100-50 mcg/dose (Wixela Inhub) 1 inh inhalation BID 60 ea 3RF 30 days J45.909 - Unspecified asthma, uncomplicated Patient Instructions: Goal: Blood pressure to remain below 140/90 Barriers: Adherence to physical activity and healthy eating habits
--- OUTSIDE RECORDS SUMMARY | 2024-10-03 09:05 | XMS_ITS | Clinical Summary ---
Author Organization [facility] Facility Address [address] [address] Care Team Providers Care Floor Cashier Name Role Phone Polo Nascimento Primary Care [...] patient's age to complete this topic Insurance [facility] Care Teams Floor Cashier Relationship Specialty Start Date End Date Polo Nascimento PA [address], [address] [place] [address] PCP - General Physician Victorian Literature Professor 06/30/21
--- OUTSIDE RECORDS SUMMARY | 2024-10-03 09:06 | XMS_ITS | Encounter Summary ---
Author Organization [facility] Address [address] [place] [address] Phone Care Team Providers Care Wardrobe Custodian Name Role Phone Polo Nascimento Primary Care Provider + Encounter Details Date Type Department Care Team (Late st Contact Info) Description 11/21/2021 Procedure Pass [facility], Ct Scan - [facility] [address] [place] [address] Social History Tobacco Use Types Packs/Day Years [...] 4:21 PM EDT Jose Bunn RN * [place] Suicide Severity Rating Scale (Screener/Recent Self-Report) Question [...] on filedocumented in this encounter Care Teams Wardrobe Custodian Relationship Specialty Start Date End Date Polo Nascimento PA [address] [place] [address] PCP - General 10/24/20 documented as of this encounter Additional Source Comments The information contained in this document represents components of the legal health record. It is not the complete legal health record.[facility]
--- OUTSIDE RECORDS SUMMARY | 2024-10-03 09:06 | XMS_ITS | Encounter Summary ---
Author Organization [facility] Address [address] [place] [address] Phone Care Team Providers Care Rn Manager Name Role Phone Polo Nascimento Primary Care Provider + Encounter Details Date Type Department Care Team (Late st Contact Info) Description 11/21/2021 Procedure Pass [facility], Ct Scan - [facility] [address] [place] [address] Social History Tobacco Use Types Packs/Day Years [...] 4:21 PM EDT Jose Bunn RN * [place] Suicide Severity Rating Scale (Screener/Recent Self-Report) Question [...] on filedocumented in this encounter Care Teams Rn Manager Relationship Specialty Start Date End Date Polo Nascimento PA [address] [place] [address] PCP - General 10/24/20 documented as of this encounter Additional Source Comments The information contained in this document represents components of the legal health record. It is not the complete legal health record.[facility]
--- OUTSIDE RECORDS SUMMARY | 2024-10-03 09:06 | XMS_ITS | Clinical Summary ---
Author Organization [facility] Address [address] [place] [address] Care Team Providers Care Medical Staff Manager Name Role Phone AnaLanden Primary Care Provider [phone] Allergies No known active allergies Medications Medication [...] age to complete this topic Care Teams Medical Staff Manager Relationship Specialty Start Date End Date Landen Perez DO [address] [place] [address] PCP - General 10/20/16
--- OUTSIDE RECORDS SUMMARY | 2024-10-03 09:06 | XMS_ITS | Patient Health Record ---
Author Organization 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
--- OUTSIDE RECORDS SUMMARY | 2024-10-03 09:06 | XMS_ITS | Clinical Summary ---
Author Organization [facility] Address [address] [place], [place] [id number] Phone Care Team Providers Care Tractor Trailer Mechanic Name Role Phone Polo Nascimento Primary Care Provider + Allergies No known active allergies Medications albuterol 2.5 mg /3 mL (0.083 %) nebulizer solution INHALE THE CONTENTS OF 1 VIAL (3 ML) EVERY 4 HOURS 10/13/2019 Active ferrous sulfate 325 mg (65 mg [place] iron) tablet Take 1 tablet by mouth 2 (two) times a day. 07/23/2020 Active fluticasone propionate (FLOVENT HFA) 110 mcg/actuation inhaler Inhale 1 puff into the lungs. Active gabapentin (NEURONTIN) 300 MG capsule 10/22/2020 Active ibuprofen (ADVIL,MOTRIN) 800 MG tablet Take 800 mg by mouth 3 (three) times a day. 09/25/2020 Active letrozole (FEMARA) 2.5 mg tablet Take 2.5 mg by mouth daily. 09/25/2019 Active lisinopril (PRINIVIL,ZESTR IL) 10 MG tablet Take 10 mg by mouth daily. 10/01/2020 Active montelukast (SINGULAIR) 10 mg tablet Take 10 mg by mouth every evening. 09/24/2020 Active phenazopyridine (PYRIDIUM) 200 MG tablet TAKE ONE TABLET BY MOUTH THREE TIMES A DAY AFTER MEALS FOR 2 DAYS 05/30/2019 Active Active Problems Problem Noted Date Diagnosed Date Arthritis of knee, right 09/22/2018 Arthritis of left shoulder region 05/18/2017 Immunizations Immunization Administration Dates Next Due Influenza Quadrivalent w/ Preservative IM 2017,11/25/2016 Influenza Recombinant Vani valent Preservative Free IM 11/09/2018 Pneumococcal conjugate PCV13 11/16/2019 Pneumococcal polysaccharide PPSV23 12/31/2015 Social History Tobacco Use Types Packs/Day Years Used Date Smoking Tobacco: Never Smokeless Tobacco: Never Tobacco Cessation:Counseling Given: Yes Education Answer Date Recorded Are you interested in more education? Not on hiren e 06/06/2022 Are you concerned about learning? Not on file 06/06/2022 No 06/06/2022 No 06/06/2022 Digital Access Answer Date Recorded No 07/05/2022 No 07/05/2022 No 07/05/2022 Reliable internet access at home? Not on file 07/05/2022 Device with a working camera? Not on file Comments Unknown Sex and Gender Information Value Date Recorded Sex Assigned at Not on file Legal Sex Female 6:25 PM EDT Gender Identity Not on file Sexual Orientation Not on file Last Filed Vital Signs Vital Sign Reading Time Taken Comments Blood Pressure 153/105 11/21/2021 4:22 PM EDT Pulse 92 11/21/2021 4:22 PM EDT Temperature 36.7 C (98.1 F) 11/21/2021 4:22 PM EDT Respiratory Rate 16 11/21/2021 4:22 PM EDT Oxygen Saturation 96% 11/21/2021 7:30 PM EDT Inhaled Oxygen Concentration - - Weight 63 kg (139 lb) 11/21/2021 4:22 PM EDT Height 160 cm (5' 3 ) 11/21/2021 4:22 PM EDT Body Mass Index 24.62 11/21/2021 4:22 PM EDT Plan of Treatment Health Maintenance Due Date Last Done Comments LIPID PANEL 1954 DEPRESSION SCREENING 1966 HEPATITIS C SCREENING 1972 MAMMOGRAM 1994 COLOGUARD 1999 COLONOSCOPY 1999 COLORECTAL CANCER SCREENING 1999 FIT TEST 1999 FOBT 1999 SIGMOIDOSCOPY 1999 VIRTUAL COLONOSCOPY 1999 ZOSTER VACCINES (1 of 2) 2004 OSTEOPOROSIS SCREENING INITIAL (ONE-TIME) 2019 CREATININE LEVEL 11/21/2022 11/21/2021 POTASSIUM LEVEL 11/21/2022 11/21/2021 COVID-19 VACCINE ( season) 2023 11/16/2022, 10/21/2021, 05/20/2021, Additional history exists PNEUMOCOCCAL VACCINES (50+ years) (3 of 3 - PCV20 or PCV21) 11/15/2024 11/16/2019, 12/31/2015 RSV VACCINE (1 - 1-dose 75+ series) 2029 Adult Td,Tdap Booster 09/17/2031 09/16/2021, 016 SMOKING STATUS SCREENING (Once After 26 Yrs) Completed 10/24/2020 HEPATITIS A VACCINES Aged Out No long er eligible based on patient's age to complete this topic HIB VACCINES Aged Out No longer eligi ble based on patient's age to complete this topic MENINGOCOCCAL VACCINES (ACWY) Aged Out No longer eligible based on patient's age to complete this topic MENINGOCOCCAL VACCINES (B) Aged Out N o longer eligible based on patient's age to complete this topic Medical Devices Not on file Procedures Procedure Name Priority Date/Time Associated Diagnosis Comments BASIC METABOLIC PANEL STAT 11/21/2021 4:23 PM EDT from Last 3 Months or Most Recently Relevant to Health Maintenance Results * Basic metabolic panel (11/21/2021 4:23 PM EDT) SODIUM 140 133 - 146 mmol/L [facility] CHLORIDE 106 96 - 108 mmol/L [facility] POTASSIUM 3.8 3.3 - 5.1 mmol/L [facility] CO2 24 21 - 35 mmol/L [facility] BUN 18 6 - 19 mg/dL [facility] CREATININE 0.60 0.5 - 1.5 mg/dL [facility] GLUCOSE 91 70 - 99 mg/dL [facility] CALCIUM 9.1 8.4 - 10.3 mg/dL [facility] EGFR 98 >59 mL/min/1.7 3m2 [facility] Comment:Estimated glomerular filtration rate calculated using the CKD-EPI refit equation. ANION GAP 14 10 - 20 mmol/L [facility] Blood 11/21/2021 4:23 PM EDT 11/21/2021 4:36 PM EDT Sia [facility] LAB BLOOD ORDERABLES Fi nal Result [address] [address] from Last 3 Months or Most Recently Relevant to Health Maintenance Insurance [facility] RE[facility] [place] [id number] MEDICARE PART A & B [facility] MEDICARE REPLACEMENT [facility] MEDICARE PART A & B [facility] MEDICARE REPLACEMENT Member Subscriber Plan / Payer (Ef fective 2019-Present) Name:Nayla Lambert Relation to Subscriber:Self Name:NAYLA LAMBERT Payer ID:[id number] ([facility]) Group ID:[id number] Type:Medicare Address: [address] [facility] GAMAL [facility] MEDICARE PART A & [place] [address] MEDICARE REPLACEMENT VIK YEUNG [facility] MEDICARE PART A & B Member Subscriber Plan / Payer ( fective 2006-Present) Name:Nayla Lambert Member ID:[id number] Relation to Subscriber:Self Name:Nayla Lambert Subscriber ID:[id number] Payer ID:[id number] Group ID:Not on file Type:Medicare Address: [facility] [employer] [facility] [address] [place] [address] [place] [address] MEDICARE REPLACEMENT VIK YEUNG [facility] MEDICARE PART A & B Member Subscriber Plan / Payer (Ef fective 2006-Present) Name:Nayla Lambert Member ID:[id number] Relation to Subscriber:Self Name:Nayla Lambert Subscriber ID:[id number] Payer ID:[id number] Group ID:Not on file Type:Medicare Address: [address] MEDICARE REPLACEMENT [place] [id number] MEDICARE PART A & B [facility] MEDICARE REPLACEMENT [place] [id number] MEDICARE PART A & B [facility] MEDICARE REPLACEMENT MEDICARE PART A & B [facility] MEDICARE REPLACEMENT [place] [id number] Care Teams Tractor Trailer Mechanic Relationship Specialty Start Date End Date Polo Nascimento PA [address] [place] [address] PCP - General 10/24/20 Additional Source Comments The information contained in this document represents components of the legal health record. It is not the complete legal health record.[facility]
== END 2024-10-03 09:43 | disposition home or self-care (01) ==
LOC: HO.HMCH 08:49
PROVIDERS: PCP Physician Assistant; Visit Provider Physician Assistant
DX: Z00.00 Encounter for general adult medical examination without abnormal findings (principal); G80.1 Spastic diplegic cerebral palsy; C50.611 Malignant neoplasm of axillary tail of right female breast; D64.9 Anemia, unspecified; I10 Essential (primary) hypertension; R73.09 Other abnormal glucose; Z17.1 Estrogen receptor negative status [ER-]; J45.20 Mild intermittent asthma, uncomplicated

== ENCOUNTER → 2024-10-03 08:48 | Outpatient (BNVA) | payer OTHER, SELFPAY | PROVIDERS: PCP Physician Assistant; Visit Provider Physician Assistant | DX: Z00.00 Encounter for general adult medical examination without abnormal findings (principal); G80.9 Cerebral palsy, unspecified; I10 Essential (primary) hypertension; F32.A Depression, unspecified; J45.909 Unspecified asthma, uncomplicated; G80.1 Spastic diplegic cerebral palsy; D64.9 Anemia, unspecified; R73.09 Other abnormal glucose; J45.20 Mild intermittent asthma, uncomplicated; Z85.3 Personal history of malignant neoplasm of breast | CPT/HCPCS: 96160; 99397 ==

== ENCOUNTER 2024-10-12 09:16 | Outpatient (AMB) | payer OTHER, SELFPAY ==
--- NOTE | 2024-10-12 09:17 | A.OFFVIS_ITS ---
Intake Visit Reasons: Inj-Rt knee injection-last inj 06/20/24 Intake Note: Nayla is a 69 year old female who presents complaints of right knee pain. She did have a cortisone injection given into her right knee earlier this year which gave her fairly good relief. Her pain has returned. She has tried Tylenol and anti-inflammatory medicines which gave her mild relief. She would like to hold off on surgery if at all possible. Allergies No Known Allergies (No Known Allergies*) Allergy (Verified 10/12/24 09:23) Medication List - Last Reconciled 10/12/24 by Eric Roldan MD albuterol sulfate 2.5 mg inhalation Q4H PRN amlodipine (Norvasc) 5 mg PO DAILY anastrozole (Arimidex) 1 tab PO DAILY cyanocobalamin (vitamin B-12) (Vitamin B-12) 1,000 mcg PO DAILY docusate sodium (Colace) 100 mg PO BID 30 days fluticasone propion-salmeterol 100-50 mcg/dose (Wixela Inhub) 1 inh inhalation BID 30 days gabapentin 900 mg (3 x 300 mg) PO TID ibuprofen 800 mg PO Q12H PRN 30 days [kotex pads As directed] lisinopril 20 mg PO DAILY 90 days montelukast 10 mg PO BEDTIME 90 days omeprazole 20 mg PO DAILY 30 days ondansetron 1 tab PO Q6H PRN Paxil CR (paroxetine HCl) 50 mg (2 x 25 mg) PO DAILY NS Paxil CR (paroxetine HCl) 12.5 mg PO DAILY NS [shower chair As directed] simethicone 180 mg PO BID 30 days [toilet arms As directed] [wipes As directed] [facility] Medical History Cataracts, bilateral Uses walker Cerebral palsy Frequent falls Colonic stricture Hx of flexible sigmoidoscopy Elevated platelet count Colonic stricture Breast CA Prolapse of intestine Rectal prolapse Invasive lobular carcinoma of breast in female Asthma MDD (major depressive disorder) Surgical History Hx of left cataract extraction (05/22/24) History of gastric surgery History of lumpectomy of right breast History of open sigmoidectomy Family History Father Family history unknown Mother Breast cancer Brother No problems noted. Sister History of leukemia Social History Household Members: None Housing: Apartment Are you a primary child care supervisor to a significant other at home: No Do you presently have visiting nurse or other home services: Yes ([employer] ACQUISITION SPECIALIST 21 hours/week) Alcohol intake: former Patient Tobacco Use Status: Never used Tobacco e-Cigarette/Vaping Use: Never Used Second Hand Smoke Exposure: No Advance Directives Date on File: 09/01/21 service: No Current occupational status: retired Cognitive needs: Yes (walker) Hearing needs: No Vision needs: Yes (reading glasses) Physical Exam Const Other: Well-nourished well-developed very friendly female awake alert and oriented x3 in no acute distress Extrem Other: Right knee examination shows a minimal effusion, palpable crepitus with range of motion, pain with range of motion, no instability Office Procedures AMB Joint Injection/Aspiration Joint Injection/Aspiration Primary Site: right knee Prep: site was prepped using aseptic technique Injected: 40 mg of, DepoMedrol and 1% plain lidocaine Procedure: The patient tolerated the procedure well Coding 60898 - Large joint Procedure code (CPT) selection complete Results Reviewed Results Reviewed: X-rays of the patient's right knee taken previously show joint space narrowing, subchondral sclerosis, no acute bony abnormalities Assessment & Plan Assessment & Plan (1) Arthritis of right knee: Code(s): M17.11 - Unilateral primary osteoarthritis, right knee Category: Medical Plan Ms. Lepe presents with right knee pain due to degenerative joint disease. The risks and benefits of a right knee cortisone injection were discussed at length with the patient. The patient wished to proceed. She tolerated the injection well. She will continue with her exercise program. She will contact me prior to her follow-up appointment in 3 months should any questions or concerns arise. Feel free to call me at any time should questions regarding her orthopedic management arise. I spent 22 minutes in reviewing the patient's records and imaging studies, seeing the patient and documenting in the medical record. Orders: Orders AMB Joint Injection/Aspiration Today M17.11 - Unilateral primary osteoarthritis, right knee Coding Level of Care Code Est Pt Level 3 (78126) Complex EM visit Add On G2211 Diagnoses Arthritis of right knee M17.11 CPT Codes Coding - 49998 Large joint: 76505 - Large joint ([id number])
--- OUTSIDE RECORDS SUMMARY | 2024-10-12 09:51 | XMS_ITS | Clinical Summary ---
Author Organization [facility] Address [address] [place], [place] [address] Phone Care Team Providers Care Procurement Inspector Name Role Phone Polo Nascimento Primary Care Provider + Allergies No known active allergies Medications albuterol 2.5 mg /3 mL (0.083 %) nebulizer solution INHALE THE CONTENTS OF 1 VIAL (3 ML) EVERY 4 HOURS 10/13/2019 Active ferrous sulfate 325 mg (65 mg [place] iron) tablet Take 1 tablet by mouth [...] EDT) SODIUM 140 133 - 146 mmol/L [facility] CHLORIDE 106 96 - 108 mmol/L [facility] POTASSIUM 3.8 3.3 - 5.1 mmol/L [facility] CO2 24 21 - 35 mmol/L [facility] BUN 18 6 - 19 mg/dL [facility] CREATININE 0.60 0.5 - 1.5 mg/dL [facility] GLUCOSE 91 70 - 99 mg/dL [facility] CALCIUM 9.1 8.4 - 10.3 mg/dL [facility] EGFR 98 >59 mL/min/1.7 3m2 [facility] Comment:Estimated glomerular filtration rate calculated using the CKD-EPI refit equation. ANION GAP 14 10 - 20 mmol/L [facility] Blood 11/21/2021 4:23 PM EDT 11/21/2021 4:36 PM EDT Sia [facility] LAB BLOOD ORDERABLES Fi nal Result [address] [address] from Last 3 Months or Most Recently Relevant to Health Maintenance Insurance [facility] RE[facility] [place] [id number] MEDICARE PART A & B [facility] MEDICARE REPLACEMENT [id number] MEDICARE PART A & B [facility] MEDICARE REPLACEMENT Member Subscriber Plan / Payer (Ef fective 2019-Present) Name:Nayla Lambert Relation to Subscriber:Self Name:NAYLA LAMBERT Payer ID:[id number] ([facility]) Group ID:[id number] Type:Medicare Address: [address] [facility] MEDICARE PART A & [place] [address] MEDICARE REPLACEMENT VIK YEUNG [facility] MEDICARE PART A & B Member Subscriber Plan / Payer ( fective 2006-Present) Name:Nayla Lambert Member ID:[id number] Relation to Subscriber:Self Name:Nayla Lambert Subscriber ID:[id number] Payer ID:[id number] Group ID:Not on file Type:Medicare Address: [facility] [email or web address] [facility] [address] [place] [address] [place] [address] MEDICARE REPLACEMENT VIK YEUNG [facility] MEDICARE PART A & B Member Subscriber Plan / Payer (Ef fective 2006-Present) Name:Nayla Lambert Member ID:[id number] Relation to Subscriber:Self Name:Nayla Lambert Subscriber ID:[id number] Payer ID:[id number] Group ID:Not on file Type:Medicare Address: [employer] [address] MEDICARE REPLACEMENT [place] [id number] MEDICARE PART A & B [facility] MEDICARE REPLACEMENT [place] [id number] MEDICARE PART A & B [facility] MEDICARE REPLACEMENT MEDICARE PART A & B [facility] MEDICARE REPLACEMENT [place] [id number] Care Teams Procurement Inspector Relationship Specialty Start Date End Date Polo Nascimento PA [address] [place] [address] PCP - General 10/24/20 Additional Source Comments The information contained in this document represents components of the legal health record. It is not the complete legal health record.[facility]
--- OUTSIDE RECORDS SUMMARY | 2024-10-12 09:51 | XMS_ITS | Encounter Summary ---
Author Organization [facility] Address [address] [place] [address] Phone Care Team Providers Care Obstetrics Gynecology Md Name Role Phone Polo Nascimento Primary Care Provider + Encounter Details Date Type Department Care Team (Late st Contact Info) Description 11/21/2021 Procedure Pass [facility], Ct Scan - [facility] [address] [place] [address] Social History Tobacco Use Types Packs/Day Years [...] 4:21 PM EDT Jose Bunn RN * [place] Suicide Severity Rating Scale (Screener/Recent Self-Report) Question [...] on filedocumented in this encounter Care Teams Obstetrics Gynecology Md Relationship Specialty Start Date End Date Polo Nascimento PA [address] [place] [address] PCP - General 10/24/20 documented as of this encounter Additional Source Comments The information contained in this document represents components of the legal health record. It is not the complete legal health record.[facility]
--- OUTSIDE RECORDS SUMMARY | 2024-10-12 09:51 | XMS_ITS | Patient Health Record ---
Author Organization [facility] Address [address] [place] [address] Care Team Providers Care Physics And Astronomy Professor Name Role Phone Polo Nascimento Primary Care Provider UnavailTin Rose Unavailable [phone] Reason For Referral No Information Problems Problem Type SNOMED Code ICD Code Onset Dates Problem Status W/U Status Risk Notes Problem Gastrointestinal anastomotic stricture (329768213) Gastrointestinal anastomotic stricture (K91.30) Active confirmed Plan Of Treatment Future Test Test Name Order Date FLEXIBLE SIGMOIDOSCOPY, DIAGNOSTIC 07/04 FLEXIBLE SIGMOIDOSCOPY, DIAGNOSTIC 07/22 FLEXIBLE SIGMOIDOSCOPY, DIAGNOSTIC 08/17 Insurance Providers Payer Name Payer Address Payer Phone Subscriber Number Group Number Insured Name Patient Relationship to Insured Coverage Start Date Coverage End Date [facility] [address] [place] [address] [id number] YADIRA LAMBERT Self - patient is the insured
--- OUTSIDE RECORDS SUMMARY | 2024-10-12 09:51 | XMS_ITS | Clinical Summary ---
Author Organization [facility] Address [address] [place] [address] Care Team Providers Care Thermite Bomb Loader Name Role Phone AnaLanden Primary Care Provider [phone] Allergies No known active allergies Medications Medication [...] age to complete this topic Care Teams Thermite Bomb Loader Relationship Specialty Start Date End Date Landen Perez DO [address] [place] [address] PCP - General 10/20/16
--- OUTSIDE RECORDS SUMMARY | 2024-10-12 09:51 | XMS_ITS | Clinical Summary ---
Author Organization [facility] Address [address] [address] Care Team Providers Care Chyron Operator Name Role Phone Polo Nascimento Primary Care Provider [phone] Social History Tobacco Use Types Packs/Day Years [...] patient's age to complete this topic Insurance [facility] Care Teams Chyron Operator Relationship Specialty Start Date End Date Polo Nascimento PA [address] [facility], [address] [place] [address] PCP - General Physician Pmp Certified Project Manager 06/30/21
--- OUTSIDE RECORDS SUMMARY | 2024-10-12 09:51 | XMS_ITS | Encounter Summary ---
Author Organization [facility] Address [address] [place] [address] Phone Care Team Providers Care Neurosurgical Nurse Name Role Phone Polo Nascimento Primary Care Provider + Encounter Details Date Type Department Care Team (Late st Contact Info) Description 11/21/2021 Procedure Pass [facility], Ct Scan - [facility] [address] [place] [address] Social History Tobacco Use Types Packs/Day Years [...] 4:21 PM EDT Jose Bunn RN * [place] Suicide Severity Rating Scale (Screener/Recent Self-Report) Question [...] on filedocumented in this encounter Care Teams Neurosurgical Nurse Relationship Specialty Start Date End Date Polo Nascimento PA [address] [place] [address] PCP - General 10/24/20 documented as of this encounter Additional Source Comments The information contained in this document represents components of the legal health record. It is not the complete legal health record.[facility]
== END 2024-10-12 09:50 | disposition home or self-care (01) ==
LOC: HO.HOS 09:16
PROVIDERS: PCP Physician Assistant; Visit Provider Orthopaedic Surgery
DX: M17.11 Unilateral primary osteoarthritis, right knee (principal)
CPT/HCPCS: 20610; 99213

== ENCOUNTER → 2024-10-12 09:16 | Outpatient (BNVA) | payer OTHER, SELFPAY | PROVIDERS: PCP Physician Assistant; Visit Provider Orthopaedic Surgery | DX: M17.11 Unilateral primary osteoarthritis, right knee (principal) | CPT/HCPCS: 20610; 99212; J1010; J2003 ==

== ENCOUNTER 2024-11-23 08:13 | Outpatient (AMB) | payer OTHER, SELFPAY ==
--- NOTE | 2024-11-23 08:18 | MHC.OFFVIS ---
Intake Visit Reasons: Bilateral shoulder pain Intake Note: Nayla is a 69 year old woman who presents with complaints of bilateral shoulder pains. She describes her pains as sharp in nature. She has tried physical therapy exercises which aggravated her pain. She has had cortisone injections in the past which gave her fairly good relief. She has also tried Tylenol and anti-inflammatory medicines which gave her minimal relief. She wishes to hold off on surgery if at all possible. Allergies No Known Allergies (No Known Allergies*) Allergy (Verified 10/12/24 09:23) Medication List - Last Reconciled 11/23/24 by Eric Roldan MD albuterol sulfate 2.5 mg inhalation Q4H PRN amlodipine (Norvasc) 5 mg PO DAILY anastrozole (Arimidex) 1 tab PO DAILY cyanocobalamin (vitamin B-12) (Vitamin B-12) 1,000 mcg PO DAILY docusate sodium (Colace) 100 mg PO BID 30 days fluticasone propion-salmeterol 100-50 mcg/dose (Wixela Inhub) 1 inh inhalation BID 30 days gabapentin 900 mg (3 x 300 mg) PO TID ibuprofen 800 mg PO Q12H PRN 30 days [kotex pads As directed] lisinopril 20 mg PO DAILY 90 days montelukast 10 mg PO BEDTIME 90 days omeprazole 20 mg PO DAILY 30 days ondansetron 1 tab PO Q6H PRN Paxil CR (paroxetine HCl) 50 mg (2 x 25 mg) PO DAILY NS Paxil CR (paroxetine HCl) 12.5 mg PO DAILY NS [shower chair As directed] simethicone 180 mg PO BID 30 days [toilet arms As directed] [wipes As directed] COUNTS INCLUDE 234 BEDS AT THE [facility] Medical History Cataracts, bilateral Uses walker Cerebral palsy Frequent falls Colonic stricture Hx of flexible sigmoidoscopy Elevated platelet count Colonic stricture Breast CA Prolapse of intestine Rectal prolapse Invasive lobular carcinoma of breast in female Asthma MDD (major depressive disorder) Surgical History Hx of left cataract extraction (05/22/24) History of gastric surgery History of lumpectomy of right breast History of open sigmoidectomy Family History (Reviewed 10/03/24 @ 09: by Polo Nascimento PA-C) Father Family history unknown Mother Breast cancer Brother No problems noted. Sister History of leukemia Social History (Reviewed 10/12/24 @ 09: by RANDEE Caruso) Household Members: None Housing: Apartment Are you a primary resident care associate to a significant other at home: No Do you presently have visiting nurse or other home services: Yes ([employer] 21 hours/week) Alcohol intake: former Patient Tobacco Use Status: Never used Tobacco e-Cigarette/Vaping Use: Never Used Second Hand Smoke Exposure: No Advance Directives Date on File: 09/01/21 service: No Current occupational status: retired Cognitive needs: Yes (walker) Hearing needs: No Vision needs: Yes (reading glasses) Physical Exam Const Other: Well-nourished well-developed very friendly female awake alert and oriented x3 in no acute distress Extrem Other: Bilateral upper extremity examination shows good capillary refill, no skin lesions noted, normal sensation light touch Bilateral shoulder examination shows 4/5 strength with supraspinatus testing, positive impingement signs, no instability Office Procedures AMB Joint Injection/Aspiration Joint Injection/Aspiration Primary Site: right shoulder Prep: site was prepped using aseptic technique Injected: 40 mg of, DepoMedrol and 1% plain lidocaine Procedure: The patient tolerated the procedure well Coding 69329 - Large joint Procedure code (CPT) selection complete AMB Joint Injection/Aspiration Joint Injection/Aspiration Primary Site: left shoulder Prep: site was prepped using aseptic technique Injected: 40 mg of, DepoMedrol and 1% plain lidocaine Procedure: The patient tolerated the procedure well Coding 78308 - Large joint Procedure code (CPT) selection complete Assessment & Plan Assessment & Plan (1) Bilateral shoulder pain: Code(s): M25.511 - Pain in right shoulder; M25.512 - Pain in left shoulder (2) Impingement syndrome of left shoulder: Code(s): M75.42 - Impingement syndrome of left shoulder Category: Medical (3) Impingement of right shoulder: Code(s): M25.811 - Other specified joint disorders, right shoulder Category: Medical Plan Ms. Lepe presents with bilateral shoulder pains due to impingement syndrome. The risks and benefits of bilateral shoulder cortisone injections were discussed at length with the patient. The patient wished to proceed. She tolerated the injections well. She will continue with her home exercise program. She will contact me prior to her follow-up appointment in 3 months should any questions or concerns arise. Feel free to call me at any should questions regarding her orthopedic management arise. I spent 21 minutes in reviewing the patient's records and imaging studies, seeing the patient and documenting in the medical record. Orders: Orders AMB Joint Injection/Aspiration Today M75.42 - Impingement syndrome of left shoulder AMB Joint Injection/Aspiration Today M25.811 - Other specified joint disorders, right shoulder Coding Level of Care Code Est Pt Level 3 (38576) Complex EM visit Add On G2211 Diagnoses Bilateral shoulder pain M25.511; M25.512 Impingement syndrome of left shoulder M75.42 Impingement of right shoulder M25.811 CPT Codes Coding - 64755 Large joint: 06202 - Large joint ([id number]) Coding - 15488 Large joint: 53238 - Large joint ([id number])
--- OUTSIDE RECORDS SUMMARY | 2024-11-23 08:19 | XMS_ITS | Encounter Summary ---
Author Organization [facility] Address [address] [place] [address] Phone Care Team Providers Care Armor Reconnaissance Vehicle Driver Name Role Phone Polo Nascimento Primary Care Provider + Encounter Details Date Type Department Care Team (Late st Contact Info) Description 11/21/2021 Procedure Pass [facility], Ct Scan - [facility] [address] [place] [address] Social History Tobacco Use Types Packs/Day Years [...] 4:21 PM EDT Jose Bunn RN * [place] Suicide Severity Rating Scale (Screener/Recent Self-Report) Question [...] on filedocumented in this encounter Care Teams Armor Reconnaissance Vehicle Driver Relationship Specialty Start Date End Date Polo Nascimento PA [address] [place] [address] PCP - General 10/24/20 documented as of this encounter Additional Source Comments The information contained in this document represents components of the legal health record. It is not the complete legal health record.[facility]
--- OUTSIDE RECORDS SUMMARY | 2024-11-23 08:19 | XMS_ITS | Patient Health Record ---
Author Organization [facility] Address [address] [place] [address] Care Team Providers Care Child Support Specialist Name Role Phone Polo Nascimento Primary Care Provider UnavailTin Rose Unavailable [phone] Reason For Referral No Information Problems Problem Type SNOMED Code ICD Code Onset Dates Problem Status W/U Status Risk Notes Problem Gastrointestinal anastomotic stricture (087795664) Gastrointestinal anastomotic stricture (K91.30) Active confirmed Plan Of Treatment Future Test Test Name Order Date FLEXIBLE SIGMOIDOSCOPY, DIAGNOSTIC 07/04 FLEXIBLE SIGMOIDOSCOPY, DIAGNOSTIC 07/22 FLEXIBLE SIGMOIDOSCOPY, DIAGNOSTIC 08/17 Insurance Providers Payer Name Payer Address Payer Phone Subscriber Number Group Number Insured Name Patient Relationship to Insured Coverage Start Date Coverage End Date [facility] [address] [place] [address] [id number] YADIRA LAMBERT Self - patient is the insured
--- OUTSIDE RECORDS SUMMARY | 2024-11-23 08:20 | XMS_ITS | Clinical Summary ---
Author Organization [facility] Address [address] [place], [place] [id number] Phone Care Team Providers Care Coal Unloader Name Role Phone Polo Nascimento Primary Care Provider + Allergies No known active allergies Medications albuterol 2.5 mg /3 mL (0.083 %) nebulizer solution INHALE THE CONTENTS OF 1 VIAL (3 ML) EVERY 4 HOURS 10/13/2019 Active ferrous sulfate 325 mg (65 mg [place] iron) tablet Take 1 tablet by mouth [...] LEVEL 11/21/2022 11/21/2021 POTASSIUM LEVEL 11/21/2022 11/21/2021 INFLUENZA VACCINE (#1) 2024 3, 11/06/2021, 11/09/2018, Additional history exists COVID-19 VACCINE (2024- season) 2024 11/16/2022, 10/21/2021, 05/20/2021, Additional history exists PNEUMOCOCCAL [...] EDT) SODIUM 140 133 - 146 mmol/L [facility] CHLORIDE 106 96 - 108 mmol/L [facility] POTASSIUM 3.8 3.3 - 5.1 mmol/L [facility] CO2 24 21 - 35 mmol/L [facility] BUN 18 6 - 19 mg/dL [facility] CREATININE 0.60 0.5 - 1.5 mg/dL [facility] GLUCOSE 91 70 - 99 mg/dL [facility] CALCIUM 9.1 8.4 - 10.3 mg/dL [facility] EGFR 98 >59 mL/min/1.7 3m2 [facility] Comment:Estimated glomerular filtration rate calculated using the CKD-EPI refit equation. ANION GAP 14 10 - 20 mmol/L [facility] Blood 11/21/2021 4:23 PM EDT 11/21/2021 4:36 PM EDT us Sia [facility] BLOOD ORDERABLES Fi nal Result [facility] [address] [place], [place] [id number] from Last 3 Months or Most Recently Relevant to Health Maintenance Insurance MEDICARE PART A & B [facility] MED[facility] REPLACEMENT MEDICARE PART A & B Member Subscriber Plan / Payer (Ef fective 2006-Present) Name:Nayla Lambert Member ID:[id number] Relation to Subscriber:Self Name:Nayla Lambert Subscriber ID:[id number] Payer ID:[id number] Group ID:Not on file Type:Medicare Address: [place] [address] MEDICARE REPLACEMENT MEDICARE PART A & B MEDICARE REPLACEMENT MEDICARE PART A & B MEDICARE REPLACEMENT MEDICARE PART A & B [facility] [id number] MEDICARE PART A & B [facility] MEDICARE REPLACEMENT MEDICARE PART A & B [facility] MEDICARE REPLACEMENT MEDICARE PART A & B [facility] MEDICARE REPLACEMENT [id number] [facility]ARE [facility] MEDICARE REPLACEMENT [id number] Care Teams Coal Unloader Relationship Specialty Start Date End Date Polo Nascimento PA [address] [place] [address] PCP - General 10/24/20 Additional Source Comments The information contained in this document represents components of the legal health record. It is not the complete legal health record.[facility]
--- OUTSIDE RECORDS SUMMARY | 2024-11-23 08:20 | XMS_ITS | Encounter Summary ---
Author Organization [facility] Address [address] [place] [address] Phone Care Team Providers Care Choir Member Name Role Phone Polo Nascimento Primary Care Provider + Encounter Details Date Type Department Care Team (Late st Contact Info) Description 11/21/2021 Procedure Pass [facility], Ct Scan - [facility] [address] [place] [address] Social History Tobacco Use Types Packs/Day Years [...] 4:21 PM EDT Jose Bunn RN * [place] Suicide Severity Rating Scale (Screener/Recent Self-Report) Question [...] on filedocumented in this encounter Care Teams Choir Member Relationship Specialty Start Date End Date Polo Nascimento PA [address] [place] [address] PCP - General 10/24/20 documented as of this encounter Additional Source Comments The information contained in this document represents components of the legal health record. It is not the complete legal health record.[facility]
--- OUTSIDE RECORDS SUMMARY | 2024-11-23 08:21 | XMS_ITS | Clinical Summary ---
Author Organization [facility] Address [address] [place] [address] Care Team Providers Care Wrapper Hand Name Role Phone AnaLanden Primary Care Provider [phone] Allergies No known active allergies Medications Medication [...] age to complete this topic Care Teams Wrapper Hand Relationship Specialty Start Date End Date Landen Perez DO [address] [place] [address] PCP - General 10/20/16
--- OUTSIDE RECORDS SUMMARY | 2024-11-23 08:21 | XMS_ITS | Data Portability ---
Author Organization [place] [facility] Nadeen Stoll AONE Coin Address [address] [place] [address] Care Team Providers Care Nanoelectronics Engineer Name Role Phone JEANCARLOS KENNEDY Primary Care Provider JEANCARLOS KENNEDY Referring Provider [phone] JEANCARLOS KENNEDY Primary Care Provider [phone] Assessment Encounter Date Assessment Date Assessment LastModified [...] findings at length with the patient today. We discussed the nature and etiology of this problem along with current treatment options. We discussed the expected course and outcomes and what to expect. We also discussed risks and benefits. All of their questions were answered today, and there was exhibited understanding and comprehension of all that was discussed. Time Spent: 10 minutes were spent reviewing previous imaging and charting. 10 minutes were spent obtaining patient history. 5 minutes were spent on physical exam. 5minutes were spent explaining diagnosis and assessment. Today's [...] findings at length with the patient today. We discussed the nature and etiology of this problem along with current treatment options. We discussed the expected course and outcomes and what to expect. We also discussed risks and benefits. All of their questions were answered today, and there was exhibited understanding and comprehension of all that was discussed. Time Spent: 10 minutes were spent reviewing previous imaging and charting. 10 minutes were spent obtaining patient history. 5 minutes were spent on physical exam. 5minutes were spent explaining diagnosis and assessment. Today's [...] seen and evaluated by Lovely Newell MS, PA-C in indirect conjunction with documenting/super vising provider [...] seen and evaluated by Lovely Newell MS, PA-C in indirect conjunction with documenting/super vising provider [...] knee, 4 or more view 2023 024 [email or web address] [facility], [address], [place], [address], 4 10:53:14 XR, shoulder , 2 or more view 2023 024 [facility], [address], [place], [address], 4 13:06:37 XR, shoulder , 2 or more view 2023 024 [facility], [address], [place], [address], 4 13:06:37 Medication Orders lidocain e (PF) 10 mg/mL (1 %) injectio n solution [address] [facility]993, [address], [place], [id number], 4 10:13:47 triamcin olone acetonid e 40 mg/mL suspensi on for injectio n [address] [facility]57322, [address], [place], [id number], 4 10:13:59 Marcaine (PF) 0.5 % (5 mg/mL) injectio n solution [address] [facility]91769, [address], [place], [id number], 4 10:13:53 lidocain e (PF) 100 mg/5 mL (2 %) injectio n syringe [address] [facility]35363, [address] [place] [address], [id number], 4 10:13:50 triamcin olone acetonid e 40 mg/mL suspensi on for injectio n [address] [facility]37204, [address] [place] [address], [id number], 4 10:13:59 Kenalog 40 mg/mL suspensi on for injectio n [address] [facility]89305, [facility], [place], [id number], 4 10:13:59 lidocain e (PF) 10 mg/mL (1 %) injectio n solution [address] [facility]41729, [address] [place] [address], [id number], 4 10:13:47 Kenalog 40 mg/mL suspensi on for injectio n [address] [facility]65149, [address], [place], [id number], 4 10:13:59 lidocain e (PF) 10 mg/mL (1 %) injectio n solution [address] [facility]82544, [address], [place], [id number], 4 10:13:47 Kenalog 40 mg/mL suspensi on for injectio n [address] [facility]94103, [address], [place], [id number], 4 10:13:59 lidocain e (PF) 10 mg/mL (1 %) injectio n solution [address] [facility]65533, [address], [place], [id number], 4 10:13:47 Patient TargetsNo targets recorded. Patient Instructions Encounter Date Encounter Id Patient Instructions Last Modified By Organization Details Last Modified Time 02/25/2023 [id number] You have been provided with a cortisone [...] following the injection. This is called a f lare . To help minimize the chances of this, please see the post-injection instructions above. There is a less than 1% chance of an infection. If you notice any signs of infection (redness, warmth, drainage, fever greater than 100 degrees) please call our office or contact us through the portal [facility]. Not available 02/25/2023 10:45:46 04/22/2023 [id number] You have been provided with a cortisone [...] following the injection. This is called a f lare . To help minimize the chances of this, please see the post-injection instructions above. There is a less than 1% chance of an infection. If you notice any signs of infection (redness, warmth, drainage, fever greater than 100 degrees) please call our office or contact us through the portal [facility]. Not available 04/22/2023 09:49:35 07/22/2023 [id number] You have been provided with a cortisone [...] hours following the injection. This is called marshal blanco . To help minimize the chances of [...] the bones. Not available 07/22/2023 11:13:41 08/20/2023 [id number] 7 view X-ray estefania dy obtained during today's office encounter show evidence of moderate bilateral knee osteoarthritis. There is joint space narrowing, subchondral sclerosis and marginal osteophytosis. Kellgren-Daniel grade 2. No evidence of acute fracture or osteolytic findings. From a trauma standpoint, there is no evidence of fracture or dislocation. Not available 08/20/2023 10:25:47 Reason for Referral None Reported. Problems Name Problem SNOMED Code Status Onset Date Resolution Date Notes Provider Name and Address Organization Details Recorded Time Pain of knee region 7670130081 Active 2016 Chronic pain of both knees Not Available [facility] 5 23:30:46 Chronic pain of left upper limb 96348061773 447391 Active 2017 Chronic left shoulder pain Not Available [facility] 5 23:30:45 Chronic pain of right upper limb 09910665252 117312 Active 2017 Chronic right shoulder pain Not Available [facility] 5 23:30:46 Inflammat ion of joint of left shoulder region Active 2017 Arthritis of left shoulder region Not Available [facility] 5 23:30:46 Arthritis of right knee joint 33256497918 96213 Active 2018 Arthritis of knee, right Art hritis of knee, right Art hritis of knee, right Not Available [facility] 5 23:30:45 Inflammat ion of joint of right shoulder region Active 2019 Arthritis of right shoulder region Not Available [facility] 5 23:30:44 Arthritis of joint of right shoulder region 55315038887 85728 Active 2022 LOVELY COATS PA-C [address], [place], [address] , [place] [facility], [facility] 3 09:58:21 Arthritis of joint of left shoulder region 64341725278 12854 Active 2022 LOVELY COATS PA-C [address], [place], [address] , [place] [facility], [facility] 3 09:58:30 Osteoarth ritis of right glenohume ral joint 11182677981 27580 Active 2022 LOVELY COATS PA-C [address], [place], [address] , [place] [facility], [facility] 3 10:35:14 Osteoarth ritis of left glenohume ral joint 51807459477 08986 Active 2022 LOVELY COATS PA-C [address], [place], [address] , [place] [facility], [facility] 3 10:35:19 Osteoarth ritis of right knee joint 12178471103 9100 Active 2022 LOVELY COATS PA-C [address], [place], [address] , [place] [facility], [facility] 3 11:23:10 Pain of right shoulder joint 94554099198 175099 Active 2022 LOVELY COATS PA-C [address], [place], [address] , [place] [facility], [facility] 3 07:50:39 Pain of left shoulder joint 37403144094 982025 Active 2022 LOVELY COATS PA-C [address], [place], [address] , [place] [facility], [facility] 3 07:50:39 Problem Notes None recorded. Procedures Surgical History Date Name Laterality Status Provider Name and Address Organization Details Recorded Time 07/22/19 24 LES Shoulder Interarticular Inj completed Lachelle Park MD [address], [place], [address], [place] [facility], [facility] 07/22/2023 11:12:25 05/13/19 24 MJG Knee injection w/US completed LOVELY NEWELL PA-C [address] [facility], [place], [address], [place] [facility], [facility] 05/13/2023 08:49:56 04/22/19 24 Knee Joint/Bursa Asp & Inj completed LOVELY COATS PA-C [address], [place], [address], [place] [facility], [facility] 04/22/2023 09:49:34 02/25/19 24 Knee Joint/Bursa Asp & Inj completed LOVELY COATS PA-C [address], [place], [address], [place] [facility] 02/25/2023 10:44:49 01/22/20 23 Knee Joint/Bursa Asp & Inj completed LOVELY COATS PA-C [address], [place], [address], [place] [facility], [facility] 01/21/2023 09:39:57 11/25/19 23 Knee Joint/Bursa Asp & Inj completed LOVELY COATS PA-C [address], [place], [address], [place] [facility], [facility] 11/24/2022 10:01:30 10/21/19 23 Knee Joint/Bursa Asp & Inj completed LOVELY COATS PA-C [address], [place], [address], [place] [facility] 10/20/2022 07:50:46 08/04/19 23 Knee Joint/Bursa Asp & Inj completed LOVELY COATS PA-C [address], [place], [address], [place] [facility], [facility] 08/03/2022 07:56:34 07/28/19 23 Knee Joint/Bursa Asp & Inj completed LOVELY COATS PA-C [address], [place], [address], [place] [facility], [facility] 07/27/2022 07:52:16 04/29/19 23 Shoulder Joint/Bursa Asp & Inj completed LOVELY COATS PA-C [address], [place], [address], [place] [facility], [facility] 04/28/2022 10:09:22 Imaging Results None recorded. Procedure Notes None recorded. Medical Equipment None Reported. Allergies No known drug allergies Medications Name Sig Start Date Stop Date Status Note LastModified by Organization Details LastModified Time anastrozole 1 mg tablet TAKE 1 TABLET BY MOUTH DAILY. active Not Available Not Available No t Available albuterol sulfate 2.5 mg/3 mL (0.083 %) solution for nebulizatio n INHALE THE CONTENTS OF 1 VIAL (3 ML) EVERY 4 HOURS 2019 active Not Available Not Available Not Avai lable IBU 800 mg tablet TAKE ONE TABLET BY MOUTH EVERY 12 HOURS NEEDED FOR PAIN active Not Available Not Available No t Available simethicone 180 mg capsule TAKE ONE CAPSULE BY MOUTH TWICE A DAY FOR ABDOMINAL DISTENTIO N active Not Available Not Available No t Available senna 8.6 mg tablet TAKE ONE TABLET BY MOUTH AT BEDTIME NEEDED FOR CONSTIPAT ION 06/19 /2023 completed Not Available Not Available Not Available lisinopril 20 mg tablet TAKE ONE TABLET BY MOUTH EVERY DAY active Not Available Not Available No t Available loperamide 2 mg tablet TAKE 1 TABLET BY MOUTH 4 TIMES DAILY NEEDED FOR 15 DAYS 2019 active Not Available Not Available Not Avai lable amlodipine 5 mg tablet TAKE ONE TABLET BY MOUTH EVERY DAY active Not Available Not Available No t Available acetaminoph en 500 mg tablet TAKE ONE TABLET BY MOUTH EVERY 4 TO 6 HOURS NEEDED FOR PAIN 2021 active Not Available Not Available Not Avai lable oxycodone-a cetaminophe n 5 mg-325 mg tablet TAKE 1-2 TABLETS BY MOUTH EVERY 4 TO 6 HOURS NEEDED FOR PAIN 2019 active Not Available Not Available Not Avai lable methocarbam ol 750 mg tablet TAKE ONE [...] completed Not Available Not Available Not Available methylpredn isolone acetate 40 mg/mL suspension for injection 04/14 completed Not Available Not Available Not Available ferrous sulfate 325 mg (65 mg iron) tablet TAKE ONE TABLET BY MOUTH TWICE A DAY active Not Available Not Available No t Available nitrofurant oin macrocrysta l 100 mg capsule TAKE ONE CAPSULE BY MOUTH TWICE A DAY WITH FOOD FOR 5 DAYS 11/24 completed Not Available Not Available Not Available lisinopril 10 mg tablet 2018 active Not Available Not Available Not Avai [...] Available Not Available No t Available lisinopril 5 mg tablet Take 1 tablet (5 mg total) by mouth daily. 2017 active Not Available Not Available Not Avai lable fluticasone 100 mcg-salmete rol 50 mcg/dose blistr powdr for inhalation INHALE ONE PUFF BY MOUTH TWICE A DAY active Not Available Not Available No t Available polyethylen e glycol 3350 17 gram/dose oral powder TAKE 17 GRAMS ORALLY DAILY (MIX IN WATER BRFORE TAKING). active Not Available Not Available No t Available letrozole 2.5 mg tablet Take 2.5 mg by mouth daily. 2019 active Not Available Not Available Not Avai lable ondansetron 4 mg disintegrat ing tablet DISSOLVE ONE TABLET BY MOUTH EVERY 6 TO 8 HOURS NEEDED FOR NAUSEA AND VOMITING. 07/27 completed Not Available Not Available Not Available fluticasone propionate 250 mcg/actuati on blister powder for inhalation 2018 active Not Available Not Available Not Avai lable fluticasone propionate 110 mcg/actuati on HFA aerosol inhaler Inhale 1 puff into the lungs. active Not Available Not Available No t Available naproxen 500 mg tablet 2016 active Not Available Not Available Not Avai lable Vitamin B-12 1,000 mcg tablet TAKE ONE [...] solution Take 4 mL by injection route. 08/194 completed Not Available Not Available Not Available lidocaine (PF) 100 mg/5 mL (2 %) injection syringe Take 4 mL by injection route. 08/19 completed Not Available Not Available Not Available potassium chloride ER 20 mEq tablet,exte nded release TAKE ONE TABLET BY MOUTH EVERY DAY 2021 active Not Available Not Available Not Avai lable Vitals Date Recorded Body height Body mass index (BMI) Body weight Provider Name and Address Organization Details Last Updated DateTime 08/20/2023 160.02 cm 24.8 kg/m2 [address] [place] [facility], 08/20/2023 10:14:05 Social History None recorded. Functional Status Question Answer Note LastModified by Organizat ion Details LastModified Time Do you use any illicit or recreational drugs? No Information not available 11/24/2022 Do you or have you ever used any other forms of tobacco or nicotine? No Information not available 11/24/2022 What is your level of alcohol consumption? None Information not available 11/24/2022 Mental Status None recorded. Family History Relationship [...] Diagnosis SNOMED-CT Code Diagnosis ICD10 Code Diagnosis IMO Codes Diagnosis Note [id number] JAVI BROWNmary anne [address] [place] [address] 04/28/2022 09:30:33 04/28/2022 10:29:26 Arthritis of joint of right shoulder region 0266979735 309756 M13.811 Arthritis of joint of left shoulder region 9855674236 518485 M13.812 [id number] JAVI BROWN Naidamary anne [address] [facility] [address] [place] [address] 07/27/2022 09:47:19 07/27/2022 11:53:09 Pain of right shoulder joint 7244891302 2860649 M25.511 Pain of le ft shoulder joint 9754935764 4933919 M25.512 Osteoarthr itis of right glenohumeral joint 9535924152 914433 M19.011 Osteoarthr itis of left glenohumeral joint 9290287222 070744 M19.012 [id number] [facility]I BROWN [facility] 299 [facility] [address] [place] [address] 08/03/2022 10:27:28 08/03/2022 10:51:12 Osteoarthritis of right knee joint 2534931988 69897 M17.11 [id number] JAVI BROWN [facility] 299 [facility] [address] [place] [address] 10/20/2022 09:38:49 10/20/2022 10:17:16 Pain of right shoulder joint 0178232492 4743049 M25.511 Pain of le ft shoulder joint 4411827832 1801732 M25.512 Osteoarthr itis of right glenohumeral joint 2456672939 925697 M19.011 Osteoarthr itis of left glenohumeral joint 7653074877 889574 M19.012 [id number] JAVI BROWN [facility] 299 [facility] [address] [place] [address] 11/24/2022 09:47:12 11/24/2022 10:11:10 Osteoarthritis of right knee joint 2701072645 97962 M17.11 [id number] JAVI BROWN [facility] 299 [facility] [address] [place] [address] 01/21/2023 10:09:04 01/21/2023 10:45:39 Pain of right shoulder joint 9058245254 4089110 M25.511 Pain of le ft shoulder joint 8437658003 3468013 M25.512 Osteoarthr itis of right glenohumeral joint 7477958680 924977 M19.011 Osteoarthr itis of left glenohumeral joint 9790924012 008821 M19.012 [id number] [facility] [address] [place] [address] 02/25/2023 10:20:02 02/25/2023 10:56:29 Osteoarthritis of right knee joint 3824483278 34949 M17.11 [id number] JAVI BROWN [facility] [address] [place] [address] 04/22/2023 09:10:12 04/22/2023 09:55:26 Pain of right shoulder joint 0019618877 6107006 M25.511 Pain of le ft shoulder joint 7762653208 0113736 M25.512 Osteoarthr itis of right glenohumeral joint 3947618882 310239 M19.011 Osteoarthr itis of left glenohumeral joint 4370527678 002789 M19.012 [id number] JAVI MCFADDEN [facility] [address] [address] 05/13/2023 08:11:11 05/13/2023 09:10:22 Osteoarthritis of right knee joint 3592286811 78204 M17.11 Additional diagnosis detail: Primary osteoarthr itis of right knee [id number] MD REANNA Barrios [facility] [address] [address] 07/22/2023 09:59:01 07/22/2023 10:47:09 Osteoarthritis of right glenohumeral joint 2154975642 260465 M19.011 Osteoarthr itis of left glenohumeral joint 4909370657 135900 M19.012 Osteoarthr itis of bilateral glenohumeral joints 1906539766 878796 M19.011 M19.012 Additional diagnosis detail: Osteoarthr itis of both glenohumer al joints [id number] JAVI MCFADDEN [facility] [address] [address] 08/20/2023 09:46:12 08/20/2023 10:24:29 Osteoarthritis of right knee joint 3977082686 81602 M17.11 Additional diagnosis detail: Primary osteoarthr itis of right knee Health Concerns Section Related Observation LastModified by Organization Detai ls LastModified Time None Recorded Concern Status LastModified by Organization Details LastModified Time None Recorded Advance Directives Directive None Recorded Payers Insurance Date Sequence Insurance Name Policy Number Policy Pineda Covered Member ID Pineda Member ID Guarantor Name 07/27/2022 1 [facility] - DOS PRIOR TO 2022 (MEDICARE REPLACEMENT/ADV ANTAGE - HMO) Nayla Lepe [id number] Nayla Lepe 09/13/2023 1 [facility] [employer] - DOS ON OR AFTER 2022 - ONE CARE (MEDICARE REPLACEMENT/ADV ANTAGE - HMO) Nayla Lepe [id number] Nayla Lepe Notes Date Note Type Note Provider Name and Address Organization Details Recorded Time 02/25/2023 text/html Pleasant 59-year-old female osteoarthritis of the right knee last cortisone injection was on 11/24/2022. Her pain is medial nature that is worse with walking. She has no other complaints at today's visit. LOVELY COATS PA-C 299 [facility],[address], [place], [address], [place] [facility] P 02/25/2023 10:46:11 04/22/2023 text/html BL shoulders. cortisone 01/21/2023 Pleasant 68-year-old female history of bilateral shoulder pain history of glenohumeral arthritis as well as stiffness due to cerebral palsy. She denies any falls here for bilateral cortisone injections of the shoulders. Denies recent or current illness LOVELY COATS PA-C [address], [place], [address], [place] [facility], [facility] 04/22/2023 09:51:36 05/13/2023 text/html 68-year-old female presents with recent recurrence of pain at the right knee. She is known to have osteoarthritis of the knee. She gets cortisone injections periodically which have continued to be effective at giving her meaningful relief of her pain. She requests a cortisone injection into the right knee today LOVELY NEWELL PA-C [address] [facility],[address] [address], [place], [address], [place] - [facility], P 05/13/2023 08:50:30 07/22/2023 text/html ROS as noted in the HPI This is a 68-year-old ucces-rmhb-jjhnmamf female who is presenting with chronic bilateral [...] is very active and goes to the [employer]. When she is having pain, she takes Motrin which does help. She does not desire surgical intervention and would like steroid injections today. Lachelle Park MD 299 [facility],[address] [address], [place], [address], [facility] - [facility], P 07/22/2023 11:14:59 08/20/2023 text/html 68-year-old female presents for recheck of right knee. She [...] since the fall. LOVELY NEWELL PA-C 299 [facility],[address] [address], [place], [address], [facility] - [facility], P 08/20/2023 10:26:10 OBGyn Episode No OBEpisode recorded.
== END 2024-11-23 08:48 | disposition home or self-care (01) ==
LOC: HO.HOS 08:13
PROVIDERS: PCP Physician Assistant; Visit Provider Orthopaedic Surgery
DX: M25.511 Pain in right shoulder (principal); M25.512 Pain in left shoulder; M75.42 Impingement syndrome of left shoulder; M25.811 Other specified joint disorders, right shoulder
CPT/HCPCS: 20610; 99213

== ENCOUNTER → 2024-11-23 08:13 | Outpatient (BNVA) | payer OTHER, SELFPAY | PROVIDERS: PCP Physician Assistant; Visit Provider Orthopaedic Surgery | DX: M25.511 Pain in right shoulder (principal); M25.512 Pain in left shoulder; M75.42 Impingement syndrome of left shoulder; M25.811 Other specified joint disorders, right shoulder | CPT/HCPCS: 20610; 99212; J1010; J2003 ==

== ENCOUNTER 2024-11-28 14:56 | Outpatient (AMB) | payer OTHER, SELFPAY ==
--- NOTE | 2024-11-28 15:07 | A.OFFVIS_ITS ---
Vital Signs 11/28/24 16:26 Height 5 ft 3 in Weight 141 lb 1.533 oz BMI 25.0 BP 120/80 Blood Pressure Location Lt brachial Position Sitting Intake Visit Reasons: 6mth follow up breast Intake Note: Patient is seen in office for 6 month follow up visit, breast exam. 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 Hog Cutter: Hog Cutter Present Accompanied by: Self / Same As Patient Allergies No Known Allergies (No Known Allergies*) Allergy (Verified 11/28/24 16:26) Medication List - Last Reconciled 12/04/24 by Manuel Jose MD albuterol sulfate 2.5 mg inhalation Q4H PRN amlodipine (Norvasc) 5 mg PO DAILY anastrozole (Arimidex) 1 tab PO DAILY cyanocobalamin (vitamin B-12) (Vitamin B-12) 1,000 mcg PO DAILY docusate sodium (Colace) 100 mg PO BID 30 days fluticasone propion-salmeterol 100-50 mcg/dose (Wixela Inhub) 1 inh inhalation BID 30 days gabapentin 900 mg (3 x 300 mg) PO TID ibuprofen 800 mg PO Q12H PRN 30 days [kotex pads As directed] lisinopril 20 mg PO DAILY 90 days montelukast 10 mg PO BEDTIME 90 days omeprazole 20 mg PO DAILY 30 days ondansetron 1 tab PO Q6H PRN Paxil CR (paroxetine HCl) 50 mg (2 x 25 mg) PO DAILY NS Paxil CR (paroxetine HCl) 12.5 mg PO DAILY NS [shower chair As directed] simethicone 180 mg PO BID 30 days [toilet arms As directed] [wipes As directed] HPI Comments Details: 69-year-old female patient former patient of Dr. Wu, presenting for breast cancer follow-up examination.? She was noted to have an area of architectural distortion in the 9 o'clock position of the right breast, evaluated by mammogram on February 2019 confirmed by ultrasound as an ill-defined hypoechoic area in the 10 o'clock position, 7 cm from the nipple.? An ultrasound-guided core biopsy revealed invasive ductal carcinoma grade 2 ER/WA positive, HER2 Jon negative.? She underwent lumpectomy with sentinel node biopsy on 03/16/2019.? Pathology revealed a 0.9 cm invasive lobular carcinoma, grade 2 with negative margins.? Two sentinel nodes were negative for carcinoma.? She underwent radiation therapy which was completed in May 2019.? She was started on letrozole 2.5 mg daily.? This was subsequently switched to Arimidex 1 mg p.o. daily (Dr. Pinedo). She subsequent developed a rectal prolapse recurrence and required a sigmoid resection with rectopexy.? Routine screening mammogram performed on 03/13/2024 revealed no mammographic evidence of malignancy (BI-RADS 2). She feels well but does complain of shoulder and knee pain from arthritis. [facility] Medical History Cataracts, bilateral Uses walker Cerebral palsy Frequent falls Colonic stricture Hx of flexible sigmoidoscopy Elevated platelet count Colonic stricture Breast CA Prolapse of intestine Rectal prolapse Invasive lobular carcinoma of breast in female Asthma MDD (major depressive disorder) Surgical History Hx of left cataract extraction (05/22/24) History of gastric surgery History of lumpectomy of right breast History of open sigmoidectomy Family History Father Family history unknown Mother Breast cancer Brother No problems noted. Sister History of leukemia Social History Household Members: None Housing: Apartment Are you a primary home care aide to a significant other at home: No Do you presently have visiting nurse or other home services: Yes ([employer] 21 hours/week) Alcohol intake: former Patient Tobacco Use Status: Never used Tobacco e-Cigarette/Vaping Use: Never Used Second Hand Smoke Exposure: No Advance Directives Date on File: 09/01/21 service: No Current occupational status: retired Cognitive needs: Yes (walker) Hearing needs: No Vision needs: Yes (reading glasses) Review of Systems Const All systems reviewed & are unremarkable except as noted in HPI and below Denies chills, Denies fever(s) and Denies weight gain ENT Reports no additional complaints Card Reports no additional complaints Resp Reports no additional complaints GI Reports as per HPI Denies nipple discharge Skin/Breast Denies breast swelling, Denies breast skin changes, Denies breast pain, Denies breast mass, Denies change in breast shape, Denies change in pigmentation, Denies new lesions and Denies nipple discharge Mir/Lymph Denies lymphadenopathy Physical Exam Vital Signs: Last Vital Signs BP 120/80 11/28/24 16:26 BMI result Body Mass Index 25.0 Const General: cooperative, comfortable and no acute distress HEENT Head: Yes normocephalic and Yes atraumatic Ears: hearing grossly normal bilaterally Chest Other: Left breast: No skin change, no nipple retraction, no nipple discharge, no palpable mass, no enlarged lymph nodes. Right breast: No skin change, no nipple retraction, no nipple discharge, no palpable mass, no enlarged lymph nodes Resp Effort & Inspection: normal respiratory effort GI Inspection: Yes normal to inspection Palpation (GI): Soft to palpation, nontender, no guarding and not rigid Rectal Exam - Female: No deferred Skin General skin exam: no rashes or lesions noted Neuro Other: Mobility Assessment: 1. 3 meter assessment time (seconds) 10 2. Gait observations: short strides Extrem General: Yes no clubbing, cyanosis or edema Assessment & Plan Assessment & Plan (1) Invasive lobular carcinoma of breast in female: Comment: right Code(s): C50.919 - Malignant neoplasm of unspecified site of unspecified female breast Category: Medical Plan 69-year-old female patient with previous history of right breast lumpectomy and sentinel node biopsy for infiltrating ductal carcinoma on 03/16/2019. She feels well and denies any new breast problems. Breast examination today reveals no suspicious findings in either breast. Her latest mammogram performed on 03/13/2024 revealed no mammographic evidence of malignancy in either breast (BI- RADS 2). I recommended follow-up examination in 6 months, sooner p.r.n.. Coding Level of Care Code Est Pt Level 3 (31130) Complex EM visit Add On G2211 Diagnoses Invasive lobular carcinoma of breast in female C50.919
[2024-11-28 16:26] VITALS: BP 120/80; BMI 25.0
--- OUTSIDE RECORDS SUMMARY | 2024-11-28 20:08 | XMS_ITS | Clinical Summary ---
Author Organization [facility] Address [address] [place], [place] [id number] Phone Care Team Providers Care Optical Advisor Name Role Phone Polo Nascimento Primary Care Provider + Allergies No known active allergies Medications albuterol 2.5 mg /3 mL (0.083 %) nebulizer solution INHALE THE CONTENTS OF 1 VIAL (3 ML) EVERY 4 HOURS 10/13/2019 Active ferrous sulfate 325 mg (65 mg [place] iron) tablet Take 1 tablet by mouth [...] EDT) SODIUM 140 133 - 146 mmol/L [facility] CHLORIDE 106 96 - 108 mmol/L [facility] POTASSIUM 3.8 3.3 - 5.1 mmol/L [facility] CO2 24 21 - 35 mmol/L [facility] BUN 18 6 - 19 mg/dL [facility] CREATININE 0.60 0.5 - 1.5 mg/dL [facility] GLUCOSE 91 70 - 99 mg/dL [facility] CALCIUM 9.1 8.4 - 10.3 mg/dL [facility] EGFR 98 >59 mL/min/1.7 3m2 [facility] Comment:Estimated glomerular filtration rate calculated using the CKD-EPI refit equation. ANION GAP 14 10 - 20 mmol/L [facility] Blood 11/21/2021 4:23 PM EDT 11/21/2021 4:36 PM EDT us S[facility] BLOOD ORDERABLES Fi nal Result [facility] [address] [place], [place] [id number] from Last 3 Months or Most Recently Relevant to Health Maintenance Insurance MEDICARE PART A & B [facility] MEDICARE REPLACEMENT MEDICARE PART A & B Member Subscriber Plan / Payer (Ef fective 2006-Present) Name:Nayla Lambert Member ID:[id number] Relation to Subscriber:Self Name:Nayla Lambert Subscriber ID:[id number] Payer ID:[id number] Group ID:Not on file Type:Medicare Address: Wedding Party [address] MEDICARE REPLACEMENT MEDICARE PART A & B MEDICARE REPLACEMENT MEDICARE PART A & B MEDICARE REPLACEMENT MEDICARE PART A & B [facility] [id number] MEDICARE PART A & B [facility] MEDICARE REPLACEMENT MEDICARE PART A & B [facility] MEDICARE REPLACEMENT MEDICARE PART A & B [facility] MEDICARE REPLACEMENT [id number] MEDICARE PART A & [facility] MEDICARE REPLACEMENT [id number] Care Teams Optical Advisor Relationship Specialty Start Date End Date Polo Nascimento PA [address] [place] [address] PCP - General 10/24/20 Additional Source Comments The information contained in this document represents components of the legal health record. It is not the complete legal health record.[facility]
--- OUTSIDE RECORDS SUMMARY | 2024-11-28 20:08 | XMS_ITS | Data Portability ---
Author Organization [facility] Address [address] [place] [address] Care Team Providers Care Residential Appraiser Name Role Phone [facility] Referring Provider Assessment Encounter Date Assessment Date Assessment LastModified by Organization Details LastModified Time 03/17/2022 03/17/2022 As noted, we were called to see this patient regarding concerns of low back pain and muscle spasms after recent fall.. Evaluation in the field was performed by my software quality specialist colleague, as noted above, I provided [...] Robaxin-75 0 750 mg tablet 2022 023 [facility] [place], [address], 3 10:40:44 lidocaine 5 % topical patch 2022 023 [facility], [address] [facility], [place], [address], 3 10:40:43 Patient TargetsNo targets recorded. Patient [...] blood by Pulse oximetry Respiratory rate Systolic And Diastolic Systolic And Diastolic Provider Name and Address Organization Details Last Updated DateTime 3 92 /min 16 /min 95 % 95 % 92 /min 95 % 95 % 16 /min 133/91 mm[Hg] 133/91 mm[Hg] Not Available [employer] production 3 10:56:17 Social History None [...] ICD10 Code Diagnosis IMO Codes Diagnosis Note 7582 Asif Cloud MD Main - [facility] [address] [place] [phone] 03/17/2022 10:37:40 03/19/2022 12:17:58 Low back pain [id number] M54.50 Health Concerns Section Related Observation LastModified by Organization Detai ls LastModified Time None Recorded Concern Status LastModified by Organization Details LastModified Time None Recorded Advance Directives Directive None Recorded Payers Insurance Date Sequence Insurance Name Policy Number Policy Pineda Covered Member ID Pineda Member ID Guarantor Name 10/16/2023 1 [facility] - DOS PRIOR TO 2022 - DUAL ELIGIBLE (MEDICARE REPLACEMENT/ADV ANTAGE - HMO) Nayla Pavonan [id number] Nayla Lepe 10/16/2023 1 [facility] - DOS ON OR AFTER 2022 - DUAL ELIGIBLE - NURSING HOME OPTIONS AND ONE CARE (MEDICARE REPLACEMENT/ADV ANTAGE - HMO) Nayla Lepe [id number] Nayla Lepe Notes Date Note Type Note Provider Name and Address Organization Details Recorded Time 03/17/2022 text/html [facility] Nursing Assessment: Reason For Request: Pain Patient Reports: Weakness with fall, able to move all extremities Chief Complaints: Falls, Pain PMH: COPD/Asthma, Hypertension, Cancer Allergies: No Known Comments: Member requesting [facility] visit. Member is s/p [...] ................... ................... ................... ................... ................... ................... ........ Special Inspector Note From Carie Hall: Dispatched to the [...] no constant pain, pt ambulating wo issue, [facility] contacted and supportive care discussed and prescriptions call to pharmacy ................... ................... ................... ................... ................... ................... ................... ........ Disposition: Fulfilled Asif Cloud MD [address] [facility],[address], [place], [address], [facility] - [facility] 03/17/2022 11:01:25 OBGyn Episode No OBEpisode recorded.
--- OUTSIDE RECORDS SUMMARY | 2024-11-28 20:08 | XMS_ITS | Encounter Summary ---
Author Organization [facility] Address [address] [place] [address] Phone Care Team Providers Care Manager Meeting Name Role Phone Polo Nascimento Primary Care Provider + Encounter Details Date Type Department Care Team (Late st Contact Info) Description 11/21/2021 Procedure Pass [facility], Ct Scan - [facility] [address] [place] [address] Social History Tobacco Use Types Packs/Day Years [...] 4:21 PM EDT Jose Bunn RN * [place] Suicide Severity Rating Scale (Screener/Recent Self-Report) Question [...] on filedocumented in this encounter Care Teams Manager Meeting Relationship Specialty Start Date End Date Polo Nascimento PA [address] [place] [address] PCP - General 10/24/20 documented as of this encounter Additional Source Comments The information contained in this document represents components of the legal health record. It is not the complete legal health record.[facility]
--- OUTSIDE RECORDS SUMMARY | 2024-11-28 20:08 | XMS_ITS | Data Portability ---
Author Organization [place] [facility] Nadeen Stoll AONE Jackson Address [address] [place] [address] Care Team Providers Care Burlap Bag Sewer Name Role Phone JEANCARLOS KENNEDY Primary Care Provider JEANCARLOS KENNEDY Referring Provider JEANCARLOS KENNEDY Primary Care Provider Assessment Encounter [...] more view 2023 024 ry12 [facility], [address], [place], [address], 4 10:53:14 XR, shoulder , 2 or more view 2023 024 [facility], [address], [place], [address], 4 13:06:37 XR, shoulder , 2 or more view 2023 024 [facility], [address], [place], [address], 4 13:06:37 Medication Orders lidocain e (PF) 10 mg/mL (1 %) injectio n solution [address] [facility]6546, [address] [place], [place], [id number], 4 10:13:47 triamcin olone acetonid e 40 mg/mL suspensi on for injectio n [address] [facility]37447, [address] [place], [place], [id number], 4 10:13:59 Marcaine (PF) 0.5 % (5 mg/mL) injectio n solution [address] [facility] #44370, [address] [place], [place], [id number], 4 10:13:53 lidocain e (PF) 100 mg/5 mL (2 %) injectio n syringe [address] [facility]42501, [address] [place] [address], [id number], 4 10:13:50 triamcin olone acetonid e 40 mg/mL suspensi on for injectio n [address] [facility]46862, [address] [place] [address], [id number], 4 10:13:59 Kenalog 40 mg/mL suspensi on for injectio n [address] [facility] #25176, [facility] [place], [place], [id number], 4 10:13:59 lidocain e (PF) 10 mg/mL (1 %) injectio n solution [address] [facility] #28576, [address] [place] [address], [id number], 4 10:13:47 Kenalog 40 mg/mL suspensi on for injectio n [address] [facility]01716, [address] [place], [place], [id number], 4 10:13:59 lidocain e (PF) 10 mg/mL (1 %) injectio n solution [address] [facility] #76569, [address] [place], [place], [id number], 4 10:13:47 Kenalog 40 mg/mL suspensi on for injectio n [address] [facility] #74094, [address] [place], [place], [id number], 4 10:13:59 lidocain e (PF) 10 mg/mL (1 %) injectio n solution [address] [facility] #32553, [address] [place], [place], [id number], 4 10:13:47 Patient TargetsNo targets recorded. Patient Instructions Encounter Date Encounter Id Patient Instructions Last Modified By Organization Details Last Modified Time 02/25/2023 [id number] You have been provided with a cortisone [...] office or contact us through the portal [facility]. Not available 02/25/2023 10:45:46 04/22/2023 [id number] You have been provided with a cortisone [...] office or contact us through the portal [facility]. Not available 04/22/2023 09:49:35 07/22/2023 [id number] You have been provided with a cortisone [...] the bones. Not available 07/22/2023 11:13:41 08/20/2023 [id number] 7 view X-ray estefania dy obtained during [...] Details Recorded Time Pain of knee region 1035938160 Active 2016 Chronic pain of both knees Not Available [facility] 5 23:30:46 Chronic pain of left upper limb 53869423756 441754 Active 2017 Chronic left shoulder pain Not Available [facility] 5 23:30:45 Chronic pain of right upper limb 69989339625 492205 Active 2017 Chronic right shoulder pain Not Available [facility] 5 23:30:46 Inflammat ion of joint of left shoulder region Active 2017 Arthritis of left shoulder region Not Available [facility] 5 23:30:46 Arthritis of right knee joint 63823838202 43545 Active 2018 Arthritis of knee, right Art hritis of knee, right Art hritis of knee, right Not Available [facility] 5 23:30:45 Inflammat ion of joint of right shoulder region Active 2019 Arthritis of right shoulder region Not Available [facility] 5 23:30:44 Arthritis of joint of right shoulder region 73825205673 28330 Active 2022 LOVELY COATS PA-C [address], [place], [address] , [place] [facility] 3 09:58:21 Arthritis of joint of left shoulder region 94625482110 78830 Active 2022 LOVELY COATS PA-C [address], [place], [address] , [place] [facility] 3 09:58:30 Osteoarth ritis of right glenohume ral joint 70305131134 16825 Active 2022 LOVELY COATS PA-C [address], [place], [address] , [place] [facility] 3 10:35:14 Osteoarth ritis of left glenohume ral joint 29227776846 94823 Active 2022 LOVELY COATS PA-C [address], [place], [address] , [place] [facility] 3 10:35:19 Osteoarth ritis of right knee joint 81014832043 9100 Active 2022 LOVELY COATS PA-C [address], [place], [address] , [place] [facility] 3 11:23:10 Pain of right shoulder joint 83210868082 674857 Active 2022 LOVELY COATS PA-C [address], [place], [address] , [place] [facility] 3 07:50:39 Pain of left shoulder joint 72097576288 876440 Active 2022 LOVELY COATS PA-C [address], [place], [address] , [place] [facility] 3 07:50:39 Problem Notes None recorded. Procedures Surgical History Date Name Laterality Status Provider Name and Address Organization Details Recorded Time 07/22/19 24 LES Shoulder Interarticular Inj completed Lachelle Park MD [address], [place], [address], [place] [facility] 07/22/2023 11:12:25 05/13/19 24 MJG Knee injection w/US completed LOVELY NEWELL PA-C [address] [facility], [place], [address], [place] [facility] 05/13/2023 08:49:56 04/22/19 24 Knee Joint/Bursa Asp & Inj completed LOVELY COATS PA-C [address], [place], [address], [place] [facility] 04/22/2023 09:49:34 02/25/19 24 Knee Joint/Bursa Asp & Inj completed LOVELY COATS PA-C [address], [place], [address], [place] [facility] 02/25/2023 10:44:49 01/22/20 23 Knee Joint/Bursa Asp & Inj completed LOVELY COATS PA-C [address], [place], [address], [place] [facility] 01/21/2023 09:39:57 11/25/19 23 Knee Joint/Bursa Asp & Inj completed LOVELY COATS PA-C [address], [place], [address], [place] [facility] 11/24/2022 10:01:30 10/21/19 23 Knee Joint/Bursa Asp & Inj completed LOVELY COATS PA-C [address], [place], [address], [place] [facility] 10/20/2022 07:50:46 08/04/19 23 Knee Joint/Bursa Asp & Inj completed LOVELY COATS PA-C [address], [place], [address], [place] [facility] 08/03/2022 07:56:34 07/28/19 23 Knee Joint/Bursa Asp & Inj completed LOVELY COATS PA-C [address], [place], [address], [place] [facility] 07/27/2022 07:52:16 04/29/19 23 Shoulder Joint/Bursa Asp & Inj completed LOVELY COATS PA-C [address], [place], [address], [place] [facility] 04/28/2022 10:09:22 Imaging Results None recorded. [...] Updated DateTime 08/20/2023 160.02 cm 24.8 kg/m2 30496.[address] [facility], 08/20/2023 10:14:05 Social History None recorded. Functional [...] Codes Diagnosis Note [id number] JAVI BROWNmary anne [address] [place] [address] 04/28/2022 09:30:33 04/28/2022 10:29:26 Arthritis of joint of right shoulder region 0367351838 082176 M13.811 Arthritis of joint of left shoulder region 2972932805 145434 M13.812 [id number] JAVI BROWN Naidamary anne 299 [facility] [address] [place] [address] 07/27/2022 09:47:19 07/27/2022 11:53:09 Pain of right shoulder joint 2763933757 2043173 M25.511 Pain of le ft shoulder joint 1931452992 2418027 M25.512 Osteoarthr itis of right glenohumeral joint 4913398487 689664 M19.011 Osteoarthr itis of left glenohumeral joint 7009297098 182206 M19.012 [id number] [facility] 299 [facility] [address] [place] [address] 08/03/2022 10:27:28 08/03/2022 10:51:12 Osteoarthritis of right knee joint 4570246002 31711 M17.11 [id number] JAVI BROWN [facility] 299 [facility] [address] [place] [address] 10/20/2022 09:38:49 10/20/2022 10:17:16 Pain of right shoulder joint 0196564707 1112923 M25.511 Pain of le ft shoulder joint 0902946722 9069625 M25.512 Osteoarthr itis of right glenohumeral joint 1930187365 602615 M19.011 Osteoarthr itis of left glenohumeral joint 8683559941 146844 M19.012 [id number] [facility]AVI BROWN [facility] 299 [facility] [address] [place] [address] 11/24/2022 09:47:12 11/24/2022 10:11:10 Osteoarthritis of right knee joint 9699640759 05209 M17.11 [id number] JAVI BROWN [facility] 299 [facility] [address] [place] [address] 01/21/2023 10:09:04 01/21/2023 10:45:39 Pain of right shoulder joint 1214312525 9991867 M25.511 Pain of le ft shoulder joint 5661858733 6780875 M25.512 Osteoarthr itis of right glenohumeral joint 2233449158 400632 M19.011 Osteoarthr itis of left glenohumeral joint 6563376287 070433 M19.012 [id number] [facility] [address] [place] [address] 02/25/2023 10:20:02 02/25/2023 10:56:29 Osteoarthritis of right knee joint 9868555757 49950 M17.11 [id number] JAVI BROWN [facility] [address] [place] [address] 04/22/2023 09:10:12 04/22/2023 09:55:26 Pain of right shoulder joint 0555780802 9073069 M25.511 Pain of le ft shoulder joint 6830538488 8188234 M25.512 Osteoarthr itis of right glenohumeral joint 6639209389 103127 M19.011 Osteoarthr itis of left glenohumeral joint 7919675324 149734 M19.012 [id number] JAVI MCFADDEN [facility] [address] [address] 05/13/2023 08:11:11 05/13/2023 09:10:22 Osteoarthritis of right knee joint 2956924825 61042 M17.11 Additional diagnosis detail: Primary osteoarthr itis of right knee [id number] MD REANNA Barrios [facility] [address] [address] 07/22/2023 09:59:01 07/22/2023 10:47:09 Osteoarthritis of right glenohumeral joint 1303571575 105213 M19.011 Osteoarthr itis of left glenohumeral joint 7140672353 907211 M19.012 Osteoarthr itis of bilateral glenohumeral joints 0978348180 982475 M19.011 M19.012 Additional diagnosis detail: Osteoarthr itis of both glenohumer al joints [id number] JAVI MCFADDEN [facility] [address] [address] 08/20/2023 09:46:12 08/20/2023 10:24:29 Osteoarthritis of right knee joint 2925060959 20396 M17.11 Additional diagnosis detail: Primary osteoarthr itis of right knee Health Concerns Section Related Observation LastModified by Organization Detai ls LastModified Time None Recorded Concern Status LastModified by Organization Details LastModified Time None Recorded Advance Directives Directive None Recorded Payers Insurance Date Sequence Insurance Name Policy Number Policy Pineda Covered Member ID Pineda Member ID Guarantor Name 07/27/2022 1 [facility] - DOS PRIOR TO 2022 (MEDICARE REPLACEMENT/ADV ANTAGE - HMO) Nayla Lepe [id number] Nayla Lepe 09/13/2023 1 [facility] - DOS ON OR AFTER 2022 - ONE CARE (MEDICARE REPLACEMENT/ADV ANTAGE - HMO) Nayla Lepe [id number] Nayla Lepe Notes Date Note Type Note Provider Name and Address Organization Details Recorded Time 02/25/2023 text/html Pleasant 59-year-old female osteoarthritis of the right knee last cortisone injection was on 11/24/2022. Her pain is medial nature that is worse with walking. She has no other complaints at today's visit. LOVELY COATS PA-C [address] [facility], [place], [address], [place] [facility] 02/25/2023 10:46:11 04/22/2023 text/html BL shoulders. cortisone 01/21/2023 Pleasant 68-year-old female history of bilateral shoulder pain history of glenohumeral arthritis as well as stiffness due to cerebral palsy. She denies any falls here for bilateral cortisone injections of the shoulders. Denies recent or current illness LOVELY COATS PA-C [address], [place], [address], [place] [facility] 04/22/2023 09:51:36 05/13/2023 text/html 68-year-old female presents with recent recurrence of pain at the right knee. She is known to have osteoarthritis of the knee. She gets cortisone injections periodically which have continued to be effective at giving her meaningful relief of her pain. She requests a cortisone injection into the right knee today LOVELY NEWELL PA-C [address] [facility],[address] [address], [place], [address], [place] [facility] 05/13/2023 08:50:30 07/22/2023 text/html ROS as noted in the HPI This is a 68-year-old xlehm-[id number] female who is presenting with chronic bilateral [...] is very active and goes to the [employer]. When she is having pain, she takes Motrin which does help. She does not desire surgical intervention and would like steroid injections today. Lachelle Park MD [address] [facility],[address] [address], [place], [address], [facility] - [facility], P 07/22/2023 11:14:59 08/20/2023 text/html 68-year-old female [...] since the fall. LOVELY NEWELL PA-C [address] [facility],[address] [address], [place], [address], [facility] - [facility] 08/20/2023 10:26:10 OBGyn Episode No OBEpisode recorded.
--- OUTSIDE RECORDS SUMMARY | 2024-11-28 20:08 | XMS_ITS | Clinical Summary ---
Author Organization [facility] Address [address] [place] [address] Care Team Providers Care Medical Physics Researcher Name Role Phone AnaLanden Primary Care Provider [...] to complete this topic Care Teams Medical Physics Researcher Relationship Specialty Start Date End Date Landen Perez DO [address] [place] [address] PCP - General 10/20/16
--- OUTSIDE RECORDS SUMMARY | 2024-11-28 20:08 | XMS_ITS | Patient Health Record ---
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
--- OUTSIDE RECORDS SUMMARY | 2024-11-28 20:08 | XMS_ITS | Encounter Summary ---
Author Organization [facility] Address [address] [facility] [address] [place] [address] Phone Care Team Providers Care Slip Laster Name Role Phone Polo Nascimento Primary Care Provider + Encounter Details Date Type Department Care Team (Late st Contact Info) Description 11/21/2021 Procedure Pass [facility], [facility] Scan - [facility] [address] [place] [address] Social History Tobacco Use Types Packs/Day Years [...] 4:21 PM EDT Jose Bunn RN * Lotus Suicide Severity Rating Scale (Screener/Recent Self-Report) Question [...] on filedocumented in this encounter Care Teams Slip Laster Relationship Specialty Start Date End Date Polo Nascimento PA [address] [place] [address] PCP - General 10/24/20 documented as of this encounter Additional Source Comments The information contained in this document represents components of the legal health record. It is not the complete legal health record.[facility]
== END 2024-11-28 15:22 | disposition home or self-care (01) ==
LOC: HO.HGS 14:57
PROVIDERS: PCP Physician Assistant; Visit Provider Surgery
DX: C50.919 Malignant neoplasm of unspecified site of unspecified female breast (principal)
CPT/HCPCS: 99213; G2211

== ENCOUNTER → 2024-11-28 14:56 | Outpatient (BNVA) | payer OTHER, SELFPAY | PROVIDERS: PCP Physician Assistant; Visit Provider Surgery | DX: C50.911 Malignant neoplasm of unspecified site of right female breast (principal) | CPT/HCPCS: 99212 ==

== ENCOUNTER 2025-01-26 08:14 | Outpatient (REF) | payer OTHER, SELFPAY ==
--- OUTSIDE RECORDS SUMMARY | 2025-01-26 08:18 | XMS_ITS | Clinical Summary ---
Author Organization [facility] Prior to 07/08/24 Address [address] [place] [address] Care Team Providers Care Sales Operations Lead Name Role Phone AnaLanden Primary Care Provider [phone] Allergies No known active allergies Medications Medication [...] age to complete this topic Care Teams Sales Operations Lead Relationship Specialty Start Date End Date Landen Perez DO [address] [place] [address] PCP - General 10/20/16
--- OUTSIDE RECORDS SUMMARY | 2025-01-26 08:18 | XMS_ITS | Clinical Summary ---
Author Organization [facility] Address [address] [address] Care Team Providers Care Pusher Runner Name Role Phone Polo Nascimento Primary Care Provider [phone] Social History Tobacco Use Types Packs/Day Years [...] to complete this topic Insurance [facility] Care Teams Pusher Runner Relationship Specialty Start Date End Date Polo Nascimento PA [address] [facility], [address] [place] [address] PCP - General Physician Loan Inspector 06/30/21
--- OUTSIDE RECORDS SUMMARY | 2025-01-26 08:18 | XMS_ITS | Data Portability ---
Author Organization [facility] Address [address] [place] [address] Care Team Providers Care Net Mender Name Role Phone [facility] Referring Provider Assessment Encounter Date Assessment Date Assessment LastModified by Organization Details LastModified Time 03/17/2022 03/17/2022 As noted, we were called to see this patient regarding concerns of low back pain and muscle spasms after recent fall.. Evaluation in the field was performed by my deliverer food colleague, as noted above, I provided real-time [...] Robaxin-75 0 750 mg tablet 2022 023 [facility] [place], [address], 3 10:40:44 lidocaine 5 % topical patch 2022 023 [facility], [address] [facility], [place], [address], 3 10:40:43 Patient TargetsNo targets recorded. Patient [...] Recorded Heart rate Respiratory rate Oxygen saturation Heart rate Oxygen saturation Respiratory rate Systolic And Diastolic Systolic And Diastolic Provider Name and Address Organization Details Last Updated DateTime 3 92 /min 16 /min 95 % 92 /min 95 % 16 /min 133/91 mm[Hg] 133/91 mm[Hg] Not Available [facility] - production 3 [...] 7582 Asif Cloud MD Main - [facility] [address] [place] [address] 03/17/2022 10:37:40 03/19/2022 12:17:58 Low back pain 793612665 M54.50 Health Concerns Section Related Observation LastModified by Organization Detai ls LastModified Time None Recorded Concern Status LastModified by Organization Details LastModified Time None Recorded Advance Directives Directive None Recorded Payers Insurance Date Sequence Insurance Name Policy Number Policy Pineda Covered Member ID Pineda Member ID Guarantor Name 10/16/2023 1 [facility] - DOS PRIOR TO 2022 - DUAL ELIGIBLE (MEDICARE REPLACEMENT/ADV ANTAGE - HMO) Nayla Lepe [id number] Nayla Lepe 10/16/2023 1 [facility] - DOS ON OR AFTER 2022 - DUAL ELIGIBLE - INTERMEDIATE OPTIONS AND ONE CARE (MEDICARE REPLACEMENT/ADV ANTAGE - HMO) Nayla Lepe [id number] Nayla Lepe Notes Date Note Type Note Provider Name and Address Organization Details Recorded Time 03/17/2022 text/html [facility] Nursing Assessment: Reason For Request: Pain Patient Reports: Weakness with fall, able to move all extremities Chief Complaints: Falls, Pain PMH: COPD/Asthma, Hypertension, Cancer Allergies: No Known Comments: Member requesting [facility] visit. Member is s/p fall 2 weeks [...] ................... ................... ................... ................... ................... ................... ........ Direct Selling Counselor Note From Carie Hall: Dispatched to the [...] ........ Disposition: Fulfilled Asif Cloud MD [address] [facility], [place], [address], Campus Shift - [employer] 03/17/2022 11:01:25 OBGyn Episode No OBEpisode recorded.
--- OUTSIDE RECORDS SUMMARY | 2025-01-26 08:18 | XMS_ITS | Data Portability ---
Author Organization [place] [facility] Nadeen Stoll [place]ONE [place] Address [address] [place] [address] Care Team Providers Care Managing Director Atlas Name Role Phone JEANCARLOS KENNEDY Primary Care Provider [phone] JEANCARLOS KENNEDY Referring Provider JEANCARLOS KENNEDY Primary Care Provider [phone] Assessment Encounter Date Assessment Date Assessment LastModified [...] more view 2023 024 [email or web address] [facility], [address], [place], [address], 4 10:53:14 XR, shoulder , 2 or more view 2023 024 [facility], [address], [place], [address], 4 13:06:37 XR, shoulder , 2 or more view 2023 024 [facility], [address], [place], [address], 4 13:06:37 Medication Orders lidocain e (PF) 10 mg/mL (1 %) injectio n solution [address] [id number], [address], [place], [id number], 4 10:13:47 triamcin olone acetonid e 40 mg/mL suspensi on for injectio n [address] [facility]10730, [address], [place], [id number], 4 10:13:59 Marcaine (PF) 0.5 % (5 mg/mL) injectio n solution [address] [facility]96276, [address], [place], [id number], 4 10:13:53 lidocain e (PF) 100 mg/5 mL (2 %) injectio n syringe [address] [facility]14314, [address] [place] [id number], 4 10:13:50 triamcin olone acetonid e 40 mg/mL suspensi on for injectio n [address] [facility]00393, [address] [place] [address], [id number], 4 10:13:59 Kenalog 40 mg/mL suspensi on for injectio n [address] [facility]59852, [facility], [place], [id number], 4 10:13:59 lidocain e (PF) 10 mg/mL (1 %) injectio n solution [address] [facility]10483, [address] [place] [address], [id number], 4 10:13:47 Kenalog 40 mg/mL suspensi on for injectio n [address] [facility]32107, [address], [place], [id number], 4 10:13:59 lidocain e (PF) 10 mg/mL (1 %) injectio n solution [address] [facility]04514, [address], [place], [id number], 4 10:13:47 Kenalog 40 mg/mL suspensi on for injectio n [address] [facility]88185, [address], [place], [id number], 4 10:13:59 lidocain e (PF) 10 mg/mL (1 %) injectio n solution [address] [facility]59677, [address], [place], [id number], 4 10:13:47 Patient TargetsNo targets recorded. Patient Instructions Encounter Date Encounter Id Patient Instructions Last Modified By Organization Details Last Modified Time 02/25/2023 [id number] You have been provided with a cortisone [...] office or contact us through the portal [facility]. Not available 02/25/2023 10:45:46 04/22/2023 [id number] You have been provided with a cortisone [...] office or contact us through the portal [facility]. Not available 04/22/2023 09:49:35 07/22/2023 [id number] You have been provided with a cortisone [...] the bones. Not available 07/22/2023 11:13:41 08/20/2023 [id number] 7 view X-ray estefania dy obtained during [...] Details Recorded Time Pain of knee region 1477153677 Active 2016 Chronic pain of both knees Not Available [facility] 5 23:30:46 Chronic pain of left upper limb 70402063220 468595 Active 2017 Chronic left shoulder pain Not Available [facility] 5 23:30:45 Chronic pain of right upper limb 30382475623 043324 Active 2017 Chronic right shoulder pain Not Available [facility] 5 23:30:46 Inflammat ion of joint of left shoulder region Active 2017 Arthritis of left shoulder region Not Available [facility] 5 23:30:46 Arthritis of right knee joint 08928405178 00999 Active 2018 Arthritis of knee, right Art hritis of knee, right Art hritis of knee, right Not Available [facility] 5 23:30:45 Inflammat ion of joint of right shoulder region Active 2019 Arthritis of right shoulder region Not Available [facility] 5 23:30:44 Arthritis of joint of right shoulder region 60014532839 98203 Active 2022 LOVELY COATS PA-C [address], [place], [address] , [place] [facility] 3 09:58:21 Arthritis of joint of left shoulder region 90633315809 85820 Active 2022 LOVELY COATS PA-C [address], [place], [address] , [place] [facility] 3 09:58:30 Osteoarth ritis of right glenohume ral joint 20494609231 47070 Active 2022 LOVELY COATS PA-C [address], [place], [address] , [place] [facility] 3 10:35:14 Osteoarth ritis of left glenohume ral joint 27569746938 17482 Active 2022 LOVELY COATS PA-C [address], [place], [address] , [place] [facility] 3 10:35:19 Osteoarth ritis of right knee joint 63275028692 9100 Active 2022 LOVELY COATS PA-C [address], [place], [address] , [place] [facility] 3 11:23:10 Pain of right shoulder joint 45741232175 608425 Active 2022 LOVELY COATS PA-C [address], [place], [address] , [place] [facility] 3 07:50:39 Pain of left shoulder joint 86221524195 499251 Active 2022 LOVELY COATS PA-C [address], [place], [address] , [place] [facility] 3 07:50:39 Problem Notes None recorded. Procedures Surgical History Date Name Laterality Status Provider Name and Address Organization Details Recorded Time 07/22/19 24 LES Shoulder Interarticular Inj completed Lachelle Park MD [address], [place], [address], [place] [facility] 07/22/2023 11:12:25 05/13/19 24 MJG Knee injection w/US completed LOVELY NEWELL PA-C [address] [facility], [place], [address], [place] [facility] 05/13/2023 08:49:56 04/22/19 24 Knee Joint/Bursa Asp & Inj completed LOVELY COATS PA-C [address], [place], [address], [place] [facility] 04/22/2023 09:49:34 02/25/19 24 Knee Joint/Bursa Asp & Inj completed LOVELY COATS PA-C [address], [place], [address], [place] [facility] 02/25/2023 10:44:49 01/22/20 23 Knee Joint/Bursa Asp & Inj completed LOVELY COATS PA-C [address], [place], [address], [place] [facility] 01/21/2023 09:39:57 11/25/19 23 Knee Joint/Bursa Asp & Inj completed LOVELY COATS PA-C [address], [place], [address], [place] [facility] 11/24/2022 10:01:30 10/21/19 23 Knee Joint/Bursa Asp & Inj completed LOVELY COATS PA-C [address], [place], [address], [place] [facility] 10/20/2022 07:50:46 08/04/19 23 Knee Joint/Bursa Asp & Inj completed LOVELY COATS PA-C [address], [place], [address], [place] [facility] 08/03/2022 07:56:34 07/28/19 23 Knee Joint/Bursa Asp & Inj completed LOVELY COATS PA-C [address], [place], [address], [place] [facility] 07/27/2022 07:52:16 04/29/19 23 Shoulder Joint/Bursa Asp & Inj completed LOVELY COATS PA-C [address], [place], [address], [place] [facility] 04/28/2022 10:09:22 Imaging Results None recorded. [...] Updated DateTime 08/20/2023 160.02 cm 24.8 kg/m2 [address]201.[address] [facility], 08/20/2023 10:14:05 Social History None recorded. Functional [...] Codes Diagnosis Note [id number] JAVI BROWNmary anne [address] [place] [address] 04/28/2022 09:30:33 04/28/2022 10:29:26 Arthritis of joint of right shoulder region 5180828013 416051 M13.811 Arthritis of joint of left shoulder region 4277902637 953755 M13.812 [id number] JAVI BROWN Naidamary anne 299 [facility] [address] [place] [address] 07/27/2022 09:47:19 07/27/2022 11:53:09 Pain of right shoulder joint 4150364614 5178880 M25.511 Pain of le ft shoulder joint 7188050098 1369332 M25.512 Osteoarthr itis of right glenohumeral joint 4451569313 239654 M19.011 Osteoarthr itis of left glenohumeral joint 0136484472 832342 M19.012 [id number] [facility] 299 [facility] [address] [place] [address] 08/03/2022 10:27:28 08/03/2022 10:51:12 Osteoarthritis of right knee joint 2806131875 85476 M17.11 [id number] JAVI BROWN [facility] 299 [facility] [address] [place] [address] 10/20/2022 09:38:49 10/20/2022 10:17:16 Pain of right shoulder joint 6591862214 1046262 M25.511 Pain of le ft shoulder joint 4173816703 7054328 M25.512 Osteoarthr itis of right glenohumeral joint 5675900771 225172 M19.011 Osteoarthr itis of left glenohumeral joint 7152799411 866262 M19.012 [id number] JAVI BROWN [facility] 299 [facility] [address] [place] [address] 11/24/2022 09:47:12 11/24/2022 10:11:10 Osteoarthritis of right knee joint 9678968483 52007 M17.11 [id number] JAVI BROWN [facility] 299 [facility] [address] [place] [address] 01/21/2023 10:09:04 01/21/2023 10:45:39 Pain of right shoulder joint 2923911549 2555188 M25.511 Pain of le ft shoulder joint 3225215957 6875320 M25.512 Osteoarthr itis of right glenohumeral joint 4428241478 509422 M19.011 Osteoarthr itis of left glenohumeral joint 5393679757 735880 M19.012 [id number] [facility] [address] [place] [address] 02/25/2023 10:20:02 02/25/2023 10:56:29 Osteoarthritis of right knee joint 8895616644 17910 M17.11 [id number] JAVI BROWN [facility] [address] [place] [address] 04/22/2023 09:10:12 04/22/2023 09:55:26 Pain of right shoulder joint 0684980072 8805161 M25.511 Pain of le ft shoulder joint 3310746542 3807331 M25.512 Osteoarthr itis of right glenohumeral joint 9879284789 159797 M19.011 Osteoarthr itis of left glenohumeral joint 2751797169 399869 M19.012 [id number] JAVI MCFADDEN [facility] [address] [address] 05/13/2023 08:11:11 05/13/2023 09:10:22 Osteoarthritis of right knee joint 7462673924 86696 M17.11 Additional diagnosis detail: Primary osteoarthr itis of right knee [id number] MD REANNA Barrios [facility] [address] [address] 07/22/2023 09:59:01 07/22/2023 10:47:09 Osteoarthritis of right glenohumeral joint 6361661870 883027 M19.011 Osteoarthr itis of left glenohumeral joint 6058264761 506239 M19.012 Osteoarthr itis of bilateral glenohumeral joints 8662329936 902004 M19.011 M19.012 Additional diagnosis detail: Osteoarthr itis of both glenohumer al joints [id number] JAVI MCFADDEN [facility] [address] [address] 08/20/2023 09:46:12 08/20/2023 10:24:29 Osteoarthritis of right knee joint 6809587507 59891 M17.11 Additional diagnosis detail: Primary osteoarthr itis of right knee Health Concerns Section Related Observation LastModified by Organization Detai ls LastModified Time None Recorded Concern Status LastModified by Organization Details LastModified Time None Recorded Advance Directives Directive None Recorded Payers Insurance Date Sequence Insurance Name Policy Number Policy Pineda Covered Member ID Pineda Member ID Guarantor Name 07/27/2022 1 [facility] - DOS PRIOR TO 2022 (MEDICARE REPLACEMENT/ADV ANTAGE - HMO) Nayla Lepe [id number] Nayla Lepe 09/13/2023 1 [facility] [employer] - DOS ON OR AFTER 2022 - ONE CARE (MEDICARE REPLACEMENT/ADV ANTAGE - HMO) Nayla Lepe [id number] Nayla Lepe Notes Date Note Type Note Provider Name and Address Organization Details Recorded Time 02/25/2023 text/html Pleasant 59-year-old female osteoarthritis of the right knee last cortisone injection was on 11/24/2022. Her pain is medial nature that is worse with walking. She has no other complaints at today's visit. LOVELY COATS PA-C [address] [facility],[address], [place], [address], [place] [facility] 02/25/2023 10:46:11 04/22/2023 text/html BL shoulders. cortisone 01/21/2023 Pleasant 68-year-old female history of bilateral shoulder pain history of glenohumeral arthritis as well as stiffness due to cerebral palsy. She denies any falls here for bilateral cortisone injections of the shoulders. Denies recent or current illness LOVELY COATS PA-C [address], [place], [address], [place] [facility] 04/22/2023 09:51:36 05/13/2023 text/html 68-year-old female presents with recent recurrence of pain at the right knee. She is known to have osteoarthritis of the knee. She gets cortisone injections periodically which have continued to be effective at giving her meaningful relief of her pain. She requests a cortisone injection into the right knee today LOVELY NEWELL PA-C [address] [facility],[address] [address], [place], [address], [place] [facility] 05/13/2023 08:50:30 07/22/2023 text/html ROS as noted in the HPI This is a 68-year-old dodrz-gkbm-rxulpelz female who is presenting with chronic bilateral [...] is very active and goes to the [employer]. When she is having pain, she takes Motrin which does help. She does not desire surgical intervention and would like steroid injections today. Lachelle Park MD [address] [facility],[address] [address], [place], [address], [facility] - [facility] 07/22/2023 11:14:59 08/20/2023 text/html 68-year-old female [...] since the fall. LOVELY NEWELL PA-C [address] [facility],[address] [address], [place], [address], [facility] - [facility] 08/20/2023 10:26:10 OBGyn Episode No OBEpisode recorded.
--- OUTSIDE RECORDS SUMMARY | 2025-01-26 08:18 | XMS_ITS | Encounter Summary ---
Author Organization [facility] Address [address] [place] [address] Phone Care Team Providers Care Digital Marketing Lead Name Role Phone Polo Nascimento Primary Care Provider + Encounter Details Date Type Department Care Team (Late st Contact Info) Description 11/21/2021 Procedure Pass [facility], [place] Scan - [facility] [address] [place] [address] Social History Tobacco Use Types Packs/Day Years Used Date Smoking Tobacco: Never Smokeless Tobacco: Never Comments Unknown Sex and Gender Information Value Date Recorded Sex Assigned at Not on file Legal Sex Female 6:25 PM EDT Gender Identity Not on file Sexual Orientation Not on file documented as of this encounter Plan of Treatment Not on file documented as of this encounter Visit Diagnoses Not on filedocumented in this encounter Care Teams Digital Marketing Lead Relationship Specialty Start Date End Date Polo Nascimento PA [address] [place] [address] PCP - General 10/24/20 documented as of this encounter Additional Source Comments The information contained in this document represents components of the legal health record. It is not the complete legal health record.[facility]
--- OUTSIDE RECORDS SUMMARY | 2025-01-26 08:18 | XMS_ITS | Clinical Summary ---
Author Organization [facility] Address [address] [place], [place] [address] Phone Care Team Providers Care Substation Design Draftsperson Name Role Phone Polo Nascimento Primary Care Provider + Allergies No known active allergies Medications albuterol 2.5 mg /3 mL (0.083 %) nebulizer solution INHALE THE CONTENTS OF 1 VIAL (3 ML) EVERY 4 HOURS 10/13/2019 Active ferrous sulfate 325 mg (65 mg [place] iron) tablet Take 1 tablet by mouth [...] Date/Time Associated Diagnosis Comments BASIC METABOLIC PANEL (BMP) STAT 11/21/2021 4:23 PM EDT from Last 3 Months or Most Recently Relevant to Health Maintenance Results * Basic metabolic panel (11/21/2021 4:23 PM EDT) SODIUM 140 133 - 146 mmol/L [facility] CHLORIDE 106 96 - 108 mmol/L [facility] POTASSIUM 3.8 3.3 - 5.1 mmol/L [facility] CO2 24 21 - 35 mmol/L [facility] BUN 18 6 - 19 mg/dL [facility] CREATININE 0.60 0.5 - 1.5 mg/dL [facility] GLUCOSE 91 70 - 99 mg/dL [facility] CALCIUM 9.1 8.4 - 10.3 mg/dL [facility] EGFR 98 >59 mL/min/1.7 3m2 [facility] Comment:Estimated glomerular filtration rate calculated using the CKD-EPI refit equation. ANION GAP 14 10 - 20 mmol/L [facility] Blood 11/21/2021 4:23 PM EDT 11/21/2021 4:36 PM EDT us [facility] BLOOD BKR ORDERABLE S Final Result [facility] [address] [place], [place] [id number] from Last 3 Months or Most Recently Relevant to Health Maintenance Insurance [place] [id number] [facility] MEDICARE REPLACEMENT MEDICARE PART A & B Member Subscriber Plan / Payer (Ef fective 2006-Present) Name:Nayla Lambert Member ID:[id number] Relation to Subscriber:Self Name:Nayla Lambert Subscriber ID:[id number] Payer ID:[id number] Group ID:Not on file Type:Medicare Address: [employer] [address] [place] [address] [place] [address] MEDICARE REPLACEMENT MEDICARE PART A & B [facility] MEDICARE REPLACEMENT MEDICARE PART A & B MEDICARE REPLACEMENT Member Subscriber Plan / Payer (Ef fective 2019-Present) Name:Nayla Lambert Relation to Subscriber:Self Name:NAYLA LAMBERT Payer ID:[id number] (NAIC) Group ID:[id number] Type:Medicare [address] [facility] MEDICARE PART A & B [facility] MEDICARE REPLACEMENT [id number] MEDICARE PART A & B [id number] [place] [address] MEDICARE REPLACEMENT MEDICARE PART A & B [facility] MEDICARE REPLACEMENT MEDICARE PART A & B [employer] [facility] MEDICARE REPLACEMENT MEDICARE PART A & B [facility] MEDICARE REPLACEMENT [id number] Care Teams Substation Design Draftsperson Relationship Specialty [place] [address] [place] [address] PCP - General 10/24/20 Additional Source Comments The information contained in this document represents components of the legal health record. It is not the complete legal health record.[facility]
--- OUTSIDE RECORDS SUMMARY | 2025-01-26 08:18 | XMS_ITS | Encounter Summary ---
Author Organization [facility] Address [address] [place] [address] Phone Care Team Providers Care Supervisor Prepress Name Role Phone Polo Nascimento Primary Care Provider + Encounter Details Date Type Department Care Team (Late st Contact Info) Description 11/21/2021 Procedure Pass [facility], Ct Scan - [facility] [address] [place] [address] Social History Tobacco Use Types Packs/Day Years [...] on filedocumented in this encounter Care Teams Supervisor Prepress Relationship Specialty Start Date End Date Polo Nascimento PA [address] [place] [address] PCP - General 10/24/20 documented as of this encounter Additional Source Comments The information contained in this document represents components of the legal health record. It is not the complete legal health record.[facility]
--- OUTSIDE RECORDS SUMMARY | 2025-01-26 08:18 | XMS_ITS | Patient Health Record ---
Author Organization [facility] Address [address] [place] [address] Care Team Providers Care Reimbursement Specialist Name Role Phone Polo Nascimento Primary Care Provider UnavailTin Rose Unavailable [phone] Reason For Referral No Information Problems Problem Type SNOMED Code ICD Code Onset Dates Problem Status W/U Status Risk Notes Problem Gastrointestinal anastomotic stricture (675565229) Gastrointestinal anastomotic stricture (K91.30) Active confirmed Plan Of Treatment Future Test Test Name Order Date FLEXIBLE SIGMOIDOSCOPY, DIAGNOSTIC 07/04 FLEXIBLE SIGMOIDOSCOPY, DIAGNOSTIC 07/22 FLEXIBLE SIGMOIDOSCOPY, DIAGNOSTIC 08/17 Insurance Providers Payer Name Payer Address Payer Phone Subscriber Number Group Number Insured Name Patient Relationship to Insured Coverage Start Date Coverage End Date [facility] [address] [place] [address] [id number] YADIRA LAMBERT Self - patient is the insured
[2025-01-26 08:55] LABS: Hematocrit 39.5 % (37.0-47.0); Hemoglobin 12.8 g/dl (12.0-16.0); Mean Corpuscular HGB Conc 32.4 g/dl (31.0-35.0); Mean Corpuscular Hemoglobin 28.0 pg (27.0-33.0); Mean Corpuscular Volume 86.4 fL (80.0-98.0); NRBC Abs Auto 0.000 X10*3/uL (0.0-0.012); NRBC Pct Auto 0.0 /100WBC (0.0-0.2); Platelet Count 262 X10*3/uL (160-400); Red Blood Count 4.57 X10*6/uL (4.20-5.50); White Blood Count 5.5 X10*3/uL (4.8-10.8)
[2025-01-26 09:34] LABS: Alanine Aminotransferase 16 U/L (0-31); Albumin Level 4.3 g/dL (3.5-5.0); Alkaline Phosphatase 55 U/L (39-117); Anion Gap 12 (12-20); Aspartate Amino Transferase 23 U/L (5-31); Blood Urea Nitrogen 14 mg/dL (9-16); Calcium 9.8 mg/dL (8.4-10.2); Carbon Dioxide 25 mmol/L (22-29); Chloride 108 mmol/L (96-108); Estimated Glomerular Filt Rate > 60; Potassium 4.0 mmol/L (3.3-5.1); Sodium 141 mmol/L (135-145); Total Protein 6.7 g/dL (6.5-8.0)
== END 2025-01-26 08:15 | disposition home or self-care (01) ==
LOC: HO.LAB 08:14
PROVIDERS: Internal Medicine; PCP Physician Assistant; Visit Provider Physician Assistant
DX: C50.919 Malignant neoplasm of unspecified site of unspecified female breast (principal); Z13.21 Encounter for screening for nutritional disorder
CPT/HCPCS: 36415; 80053; 82306; 85027

== ENCOUNTER 2025-01-30 08:41 | Outpatient (AMB) | payer OTHER, SELFPAY ==
--- NOTE | 2025-01-30 08:47 | A.OFFVIS_ITS ---
Intake Visit Reasons: Bilateral knee pain Intake Note: Nayla is a 69 year old female who presents with complaints of bilateral knee pains. She describes her pains as sharp in nature. She has tried Tylenol and ibuprofen which gave her minimal relief. She has also tried wearing a knee brace which gives her mild relief. She has had cortisone injections in the past which gave her fairly good relief. Allergies No Known Allergies (No Known Allergies*) Allergy (Verified 11/28/24 16:26) Medication List - Last Reconciled 01/30/25 by Eric Roldan MD albuterol sulfate 2.5 mg inhalation Q4H PRN amlodipine (Norvasc) 5 mg PO DAILY anastrozole (Arimidex) 1 tab PO DAILY cyanocobalamin (vitamin B-12) (Vitamin B-12) 1,000 mcg PO DAILY docusate sodium (Colace) 100 mg PO BID 30 days fluticasone propion-salmeterol 100-50 mcg/dose (Wixela Inhub) 1 inh inhalation BID 30 days gabapentin 900 mg (3 x 300 mg) PO TID ibuprofen 800 mg PO Q12H PRN 30 days [kotex pads As directed] lisinopril 20 mg PO DAILY 90 days montelukast 10 mg PO BEDTIME 90 days omeprazole 20 mg PO DAILY 30 days ondansetron 1 tab PO Q6H PRN Paxil CR (paroxetine HCl) 50 mg (2 x 25 mg) PO DAILY NS Paxil CR (paroxetine HCl) 12.5 mg PO DAILY NS [shower chair As directed] simethicone 180 mg PO BID 30 days [toilet arms As directed] [wipes As directed] [facility] Medical History Cataracts, bilateral Uses walker Cerebral palsy Frequent falls Colonic stricture Hx of flexible sigmoidoscopy Elevated platelet count Colonic stricture Breast CA Prolapse of intestine Rectal prolapse Invasive lobular carcinoma of breast in female Asthma MDD (major depressive disorder) Surgical History Hx of left cataract extraction (05/22/24) History of gastric surgery History of lumpectomy of right breast History of open sigmoidectomy Family History Father Family history unknown Mother Breast cancer Brother No problems noted. 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) Alcohol intake: former Patient Tobacco Use Status: Never used Tobacco e-Cigarette/Vaping Use: Never Used Second Hand Smoke Exposure: No Advance Directives Date on File: 09/01/21 service: No Current occupational status: retired Cognitive needs: Yes (walker) Hearing needs: No Vision needs: Yes (reading glasses) Physical Exam Extrem Other: Bilateral knee examination shows minimal effusions, palpable crepitus with range of motion, pain with range of motion, no instability Office Procedures AMB Joint Injection/Aspiration Joint Injection/Aspiration Primary Site: Left Knee Prep: site was prepped using aseptic technique Injected: 40 mg of, DepoMedrol, with 3 mL of and 1% plain Lidocaine Procedure: The patient tolerated the procedure well Coding 40949 - Large joint Procedure code (CPT) selection complete AMB Joint Injection/Aspiration Joint Injection/Aspiration Primary Site: Right Knee Prep: site was prepped using aseptic technique Injected: 40 mg of, DepoMedrol, with 3 mL of and 1% plain Lidocaine Procedure: The patient tolerated the procedure well Coding 88703 - Large joint Procedure code (CPT) selection complete Results Reviewed Results Reviewed: X-rays of the patient's bilateral knees taken previously show joint space narrowing, subchondral sclerosis, no acute bony abnormalities Assessment & Plan Assessment & Plan (1) Osteoarthritis of left knee: Code(s): M17.12 - Unilateral primary osteoarthritis, left knee Category: Medical (2) Pain in both knees: Code(s): M25.561 - Pain in right knee; M25.562 - Pain in left knee Plan Ms. Lepe presents with bilateral knee pains due to osteoarthritis. The risks and benefits of bilateral knee cortisone injections were discussed at length with the patient. The patient wished to proceed. Tolerated the injections well. She will continue with her home exercise program. She will contact me prior to her follow-up appointment in 3 months should any questions or concerns arise. Feel free to call me at any time should questions regarding her orthopedic management arise. I spent 20 minutes in reviewing the patient's records and imaging studies, seeing the patient and documenting in the medical record. Orders: Orders AMB Joint Injection/Aspiration Today M17.11 - Unilateral primary osteoarthritis, right knee AMB Joint Injection/Aspiration Today M17.12 - Unilateral primary osteoarthritis, left knee Coding Level of Care Code Est Pt Level 3 (03555) Add On Problem Visit Only Diagnoses Osteoarthritis of left knee M17.12 Pain in both knees M25.561; M25.562 CPT Codes Coding - 01153 Large joint: 48835 - Large joint ([id number]) Coding - 70545 Large joint: 67660 - Large joint ([id number])
--- OUTSIDE RECORDS SUMMARY | 2025-01-30 08:58 | XMS_ITS | Encounter Summary ---
Author Organization [facility] Address [address] [place] [address] Phone Care Team Providers Care Core Analysis Operator Name Role Phone Polo Nascimento Primary Care Provider + Encounter Details Date Type Department Care Team (Late st Contact Info) Description 11/21/2021 Procedure Pass [facility], Ct Scan - [facility] [address] [place] [address] Social History Tobacco Use Types Packs/Day Years [...] on filedocumented in this encounter Care Teams Core Analysis Operator Relationship Specialty Start Date End Date Polo Nascimento PA [address] [place] [address] PCP - General 10/24/20 documented as of this encounter Additional Source Comments The information contained in this document represents components of the legal health record. It is not the complete legal health record.[facility]
--- OUTSIDE RECORDS SUMMARY | 2025-01-30 08:58 | XMS_ITS | Clinical Summary ---
Author Organization [facility] Address [address] [address] Care Team Providers Care Molder Punch Name Role Phone Polo Nascimento Primary Care Provider [phone] Social History Tobacco Use Types Packs/Day Years [...] patient's age to complete this topic Insurance [facility] Care Teams Molder Punch Relationship Specialty Start Date End Date Polo Nascimento PA [address], [address] [place] [address] PCP - General Physician Criminal Legal Assistant 06/30/21
--- OUTSIDE RECORDS SUMMARY | 2025-01-30 08:58 | XMS_ITS | Patient Health Record ---
Author Organization [facility] Address [address] [place] [address] Care Team Providers Care Spraying Machine Operator Name Role Phone Polo Nascimento Primary Care Provider UnavailTin Rose Unavailable [phone] Reason For Referral No Information Problems Problem Type SNOMED Code ICD Code Onset Dates Problem Status W/U Status Risk Notes Problem Gastrointestinal anastomotic stricture (828874893) Gastrointestinal anastomotic stricture (K91.30) Active confirmed Plan Of Treatment Future Test Test Name Order Date FLEXIBLE SIGMOIDOSCOPY, DIAGNOSTIC 07/04 FLEXIBLE SIGMOIDOSCOPY, DIAGNOSTIC 07/22 FLEXIBLE SIGMOIDOSCOPY, DIAGNOSTIC 08/17 Insurance Providers Payer Name Payer Address Payer Phone Subscriber Number Group Number Insured Name Patient Relationship to Insured Coverage Start Date Coverage End Date [facility] [address] [place] [address] [id number] YADIRA LAMBERT Self - patient is the insured
--- OUTSIDE RECORDS SUMMARY | 2025-01-30 08:58 | XMS_ITS | Encounter Summary ---
Author Organization [facility] Address [address] [place] [address] Phone Care Team Providers Care Senior Visual Designer Name Role Phone Polo Nascimento Primary Care Provider + Encounter Details Date Type Department Care Team (Late st Contact Info) Description 11/21/2021 Procedure Pass [facility], Ct Scan - [facility] [address] [place] [address] Social History Tobacco Use Types Packs/Day Years [...] on filedocumented in this encounter Care Teams Senior Visual Designer Relationship Specialty Start Date End Date Polo Nascimento PA [address] [place] [address] PCP - General 10/24/20 documented as of this encounter Additional Source Comments The information contained in this document represents components of the legal health record. It is not the complete legal health record.[facility]
--- OUTSIDE RECORDS SUMMARY | 2025-01-30 08:59 | XMS_ITS | Clinical Summary ---
Author Organization [facility] Address [address] [place], [place] [address] Phone Care Team Providers Care Radius Grinder Name Role Phone Polo Nascimento Primary Care Provider + Allergies No known active allergies Medications albuterol 2.5 mg /3 mL (0.083 %) nebulizer solution INHALE THE CONTENTS OF 1 VIAL (3 ML) EVERY 4 HOURS 10/13/2019 Active ferrous sulfate 325 mg (65 mg campo iron) tablet Take 1 tablet by mouth [...] EDT) SODIUM 140 133 - 146 mmol/L [facility] CHLORIDE 106 96 - 108 mmol/L [facility] POTASSIUM 3.8 3.3 - 5.1 mmol/L [facility] CO2 24 21 - 35 mmol/L [facility] BUN 18 6 - 19 mg/dL [facility] CREATININE 0.60 0.5 - 1.5 mg/dL [facility] GLUCOSE 91 70 - 99 mg/dL [facility] CALCIUM 9.1 8.4 - 10.3 mg/dL [facility] EGFR 98 >59 mL/min/1.7 3m2 [facility] Comment:Estimated glomerular filtration rate calculated using the CKD-EPI refit equation. ANION GAP 14 10 - 20 mmol/L [facility] Blood 11/21/2021 4:23 PM EDT 11/21/2021 4:36 PM EDT us Sia [facility] LAB BLOOD BKR ORDERABLE S Final Result [facility] [address] [place], [place] [id number] from Last 3 Months or Most Recently Relevant to Health Maintenance Insurance [place] [id number] [facility] MEDICARE PART A & B Member Subscriber Plan / Payer (Ef fective 2006-Present) Name:Nayla Lambert Member ID:[id number] Relation to Subscriber:Self Name:Nayla Lambert Subscriber ID:[id number] Payer ID:[id number] Group ID:Not on file Type:Medicare Address: [employer] [address] [place] [address] [place] [address] MEDICARE REPLACEMENT MEDICARE PART A & B [facility] MEDICARE REPLACEMENT MEDICARE PART A & B MEDICARE REPLACEMENT Member Subscriber Plan / Payer (Ef fective 2019-Present) Name:Nayla Lambert Relation to Subscriber:Self Name:NAYLA LAMBERT Payer ID:[id number] (NAIC) Group ID:[id number] Type:Medicare [address] [facility] MEDICARE PART A & B [facility] MEDICARE REPLACEMENT [id number] MEDICARE PART A & B [id number] [place] [address] MEDICARE REPLACEMENT MEDICARE PART A & B [facility] MEDICARE REPLACEMENT MEDICARE PART A & B [employer] [facility] MEDICARE REPLACEMENT MEDICARE PART A & B [facility] MEDICARE REPLACEMENT [id number] Care Teams Radius Grinder Relationship Specialty [place] [address] [place] [address] PCP - General 10/24/20 Additional Source Comments The information contained in this document represents components of the legal health record. It is not the complete legal health record.[facility]
--- OUTSIDE RECORDS SUMMARY | 2025-01-30 08:59 | XMS_ITS | Clinical Summary ---
Author Organization [employer] [facility] Prior to 07/08/24 Address [address] [place] [address] Care Team Providers Care Dust Control Engineer Name Role Phone AnaLanden Primary Care Provider [phone] Allergies No known active allergies Medications Medication [...] age to complete this topic Care Teams Dust Control Engineer Relationship Specialty Start Date End Date Landen Perez DO [address] [place] [address] PCP - General 10/20/16
== END 2025-01-30 09:16 | disposition home or self-care (01) ==
LOC: HO.HOS 08:42
PROVIDERS: PCP Physician Assistant; Visit Provider Orthopaedic Surgery
DX: M17.12 Unilateral primary osteoarthritis, left knee (principal); M25.561 Pain in right knee; M25.562 Pain in left knee
CPT/HCPCS: 20610; 99213

== ENCOUNTER → 2025-01-30 08:41 | Outpatient (BNVA) | payer OTHER, SELFPAY | PROVIDERS: PCP Physician Assistant; Visit Provider Orthopaedic Surgery | DX: M17.0 Bilateral primary osteoarthritis of knee (principal) | CPT/HCPCS: 20610; 99212; J1010; J2003 ==

== ENCOUNTER 2025-02-06 09:01 | Outpatient (AMB) | payer OTHER, SELFPAY ==
--- NOTE | 2025-02-06 09:37 | MHC.PC.OV ---
Vital Signs 02/06/25 09:38 Height 5 ft 3 in Weight 146 lb BMI 25.9 BP 114/78 Blood Pressure Location Lt brachial Respiration 18 Pulse 82 Pulse Source Pulse Oximeter Temp 98 F Temp Source Temporal Artery Scan Pulse Oximetry (%) 94 Oxygen Delivery Method Room Air Intake Visit Reasons: Follow Up Card Grinder Required: No Accompanied by: Self / Same As Patient Allergies No Known Allergies (No Known Allergies*) Allergy (Verified 02/06/25 09:47) Medication List - Last Reconciled 02/06/25 by Polo Nascimento PA-C albuterol sulfate 2.5 mg inhalation Q4H PRN amlodipine (Norvasc) 5 mg PO DAILY anastrozole (Arimidex) 1 tab PO DAILY cyanocobalamin (vitamin B-12) (Vitamin B-12) 1,000 mcg PO DAILY docusate sodium (Colace) 100 mg PO BID 30 days fluticasone propion-salmeterol 100-50 mcg/dose (Wixela Inhub) 1 inh inhalation BID 30 days gabapentin 900 mg (3 x 300 mg) PO TID ibuprofen 800 mg PO Q12H PRN 30 days [kotex pads As directed] lisinopril 20 mg PO DAILY 90 days montelukast 10 mg PO BEDTIME 90 days omeprazole 20 mg PO DAILY 30 days Paxil CR (paroxetine HCl) 50 mg (2 x 25 mg) PO DAILY NS Paxil CR (paroxetine HCl) 12.5 mg PO DAILY NS [shower chair As directed] simethicone 180 mg PO BID 30 days [toilet arms As directed] [wipes As directed] Tobacco use date assessed: 10/03/24 Fall risk assessment: 1 Fall in past year (2 weeks ago in the house) Last assessed Fall Risk: 02/06/25 Dental Screening Dental Screen Date: 05/15/24 HPI Follow Up HPI Details Patient is a 69-year-old female here today follow-up visit ? patient has a past medical history significant for cerebral palsy, invasive ductal carcinoma of the breast, hypertension. Impaired glucose metabolism: Most recent A1c of 5.8. has noted slightly elevated fasting blood sugars. Patient concerned about this and has been working on being more physically active and reducing her carbs in her diet. .. Right knee ostearthritis : Patient is followed by orthopedic surgeon whom is being giving [place] cortisone injections, she reports his last cortisone injection has not taken effect. Unfortunately she has been having some recent falls at home secondary to her knee pain stiffness in the setting of having cerebral palsy. .. Breast cancer:? Oncology and General Surgeon. Also continues to follow Oncology. ? She is status post lobectomy for breast cancer.? She continues on anti hormonal therapy (arimidex) without side effect. Cerebral palsy:? Continues to be very active, lately has been having more recurrent falls due to balance issues in her leg. She reports her right knee has been giving out has reestablish care with a new orthopedics and is requesting a cortisone injection. She is interested in having home physical therapy to help her with balance and lower extremity strengthening. Now currently not driving .. Hypertension:? Blood pressure acceptable today in office.? Will continue current doses of blood pressure medication.? Denies any headache, chest discomfort, shortness of breath.? . Depression: Has been very well controlled with current dose of Paxil. .. Asthma: Has been well controlled with p.r.n. use of her albuterol inhaler and daily use of her Wixela maintenance inhaler. She is interested in restarting Singulair at night to help her breathe while lying down [facility] Medical History Cataracts, bilateral Uses walker Cerebral palsy Frequent falls Colonic stricture Hx of flexible sigmoidoscopy Elevated platelet count Colonic stricture Breast CA Prolapse of intestine Rectal prolapse Invasive lobular carcinoma of breast in female Asthma MDD (major depressive disorder) Surgical History Hx of left cataract extraction (05/22/24) History of gastric surgery History of lumpectomy of right breast History of open sigmoidectomy Family History Father Family history unknown Mother Breast cancer Brother No problems noted. Sister History of leukemia Social History Household Members: None Housing: Apartment Are you a primary school childcare attendant to a significant other at home: No Do you presently have visiting nurse or other home services: Yes (BARREL MARKER 21 hours/week) Alcohol intake: former Patient Tobacco Use Status: Never used Tobacco e-Cigarette/Vaping Use: Never Used Second Hand Smoke Exposure: No Advance Directives Date on File: 09/01/21 service: No Current occupational status: retired Cognitive needs: Yes (walker) Hearing needs: No Vision needs: Yes (reading glasses) Questionnaire Thrive Questionnaire Date Thrive assessed: 07/12/24 I am a: Patient What is your living situation today?: I have a steady place to live Within the past 12 months, did the food you bought not last and you didn't have the money to get more?: I choose not to answer this question Within the past 12 months, did you worry whether your food would run out before you got money to buy more?: I choose not to answer this question Do you have trouble paying for medicines?: No Do you have trouble getting transportation to medical appointments?: No Do you have trouble paying your heating and electricity bill?: No Do you have trouble taking care of your child, family member or friend?: No Do you have trouble with day-to-day activities such as bathing, preparing meals, shopping, managing finances, etc.?: I choose not to answer this question Are you currently unemployed and looking for a job?: No Are you interested in more education?: No Currently or been in a relationship where the following occur: No concerns reported THRIVE Score: 0 BRITNEY-7 AMB Questionnaire BRITNEY-7 Date BRITNEY - 7 assessed: 05/15/24 Source: Developed by Drs. Tin Arriaga, Sia Raymundo, Ean Miles and colleagues, with an educational bernarda from [employer]. Review of Systems Const Denies headache(s) Eyes Denies loss of vision ENT Denies vertigo, Denies dizziness, Denies headache(s) and Denies sore throat Card Denies chest pain, Denies leg edema and Denies lightheadedness Resp Denies cough, Denies hemoptysis and Denies wheezing GI Denies abdominal pain, Denies melena, Denies constipation, Denies diarrhea and Denies vomiting Denies urinary frequency, Denies dysuria and Denies urinary urgency Musc Denies arthralgias, Denies joint swelling, Denies numbness and Denies tingling Neuro Denies Abnormal speech present, Denies behavioral changes, Denies vertigo, Denies dizziness, Denies headache(s), Denies loss of vision, Denies memory loss, Denies numbness and Denies tingling Psych Denies anxiety, Denies behavioral changes, Denies depression, Denies memory loss and Denies panic attacks Mir/Lymph Denies easy bleeding and Denies easy bruising Aller/Immun Denies wheezing Physical exam (Primary Care) Vital Signs: Last Vital Signs Temp 98 F 02/06/25 09:38 Pulse 82 02/06/25 09:38 Resp 18 02/06/25 09:38 BP 114/78 02/06/25 09:38 Pulse Ox 94 02/06/25 09:38 Oxygen Delivery Method Room Air 02/06/25 09:38 BMI result Body Mass Index 25.9 Tobacco/Smoking Status: Tobacco use Status Tobacco use date assessed 10/03/24 02/06/25 09:45 Patient Tobacco Use Status Never used Tobacco 02/06/25 09:45 e-Cigarette/Vaping Use Never Used 02/06/25 09:45 Thrive Assessment: Date of Thrive Assessment Date Thrive assessed 07/12/24 02/06/25 09:45 Currently or been in a relationship where the following occur: No concerns reported Const General: healthy appearing, no acute distress, alert and awake Nutritional Appearance: well nourished Orientation/consciousness: oriented to person, oriented to place and oriented to time HENMT Ears: TM's normal bilaterally General nose exam: Normal nasal mucous membranes and turbinates present Eyes Conjunctivae: conjunctivae normal Sclerae: sclerae normal Pupils: Equal, round and reactive pupils present Neck Neck: Yes no lymphadenopathy and Yes no JVD Thyroid: Thyroid normal Carotids: no bruits Resp Effort & Inspection: normal respiratory effort and not tachypneic Auscultation: no crackles, no rales, no rhonchi and no wheezes Cardio Rate: regular rate Rhythm: regular rhythm Heart sounds: no murmurs and normal S1 and S2 GI Palpation (GI): Soft to palpation, nontender, no hepatomegaly and no splenomegaly Auscultation: normal bowel sounds Skin General skin exam: no rashes or lesions noted and dry skin Neuro General: oriented to person, oriented to place and oriented to time Cranial nerves: Yes Equal, round and reactive pupils present Speech: No Abnormal speech present Gait exam (Neuro): Normal gait present Motor exam (neuro): no tremor noted Extrem Right upper extremity: full ROM Left upper extremity: full ROM Right lower extremity: full ROM; no edema Left lower extremity: full ROM; no edema Psych Mental Status: mental status grossly normal Speech and movement: Normal speech and movement present Affect: normal affect Attitude: cooperative Thought process: Normal thought process present Coding Level of Care Code Est Pt Level 4 (86694) Diagnoses Spastic cerebral palsy, 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 Anemia, unspecified type D64.9 Anemia type: unspecified type Primary hypertension I10 Hypertension type: primary hypertension Impaired glucose metabolism R73.09 Mild intermittent asthma without complication J45.20 Asthma complication type: uncomplicated Asthma persistence: intermittent Asthma severity: mild Assessment & Plan Assessment & Plan (1) Spastic cerebral palsy, congenital: Code(s): G80.1 - Spastic diplegic cerebral palsy Category: Medical Plan: As per HPI patient continues to be as physically active as she can, continues with moderate arthritic pain to which he uses gabapentin, acetaminophen and ibuprofen for. She does experience falls quite often thus wears a protective helmet. She does have a walker she uses in her home, she refuses to use a cane as she feels it is not effective for her reducing fall. Most of her falls related to her cerebral palsy in conjunction with her stiff knee arthritis (2) Anemia: Code(s): D64.9 - Anemia, unspecified Category: Medical Qualifiers: Anemia type: unspecified type Qualified Code(s): D64.9 - Anemia, unspecified Plan: Patient's anemia has resolved. Will continue to follow CBC as she does continue to use NSAID on a daily basis due to her moderate to severe arthritic pain. She denies any overt signs of bleeding (3) HTN (hypertension): Code(s): I10 - Essential (primary) hypertension Category: Medical Qualifiers: Hypertension type: primary hypertension Qualified Code(s): I10 - Essential (primary) hypertension Plan: Patient's blood pressure acceptable today in office. Will continue her current dose of antihypertensive medication with goal blood pressure to remain below 140/90 (4) Impaired glucose metabolism: Code(s): R73.09 - Other abnormal glucose Category: Medical Plan: Patient has borderline high fasting blood sugar, A1c of 5.8. She will work on dietary modifications to reduce her blood sugars. . (5) Asthma: Code(s): J45.909 - Unspecified asthma, uncomplicated Category: Medical Qualifiers: Asthma complication type: uncomplicated Asthma persistence: intermittent Asthma severity: mild Qualified Code(s): J45.20 - Mild intermittent asthma, uncomplicated Plan: Patient reports her asthma has been well controlled with use of her maintenance inhaler. Otherwise denies any nighttime awakenings with asthma symptoms or recent asthma exacerbations Orders: Orders Hemoglobin A1c 02/06/25 R73.09 - Other abnormal glucose Comprehensive [place]. Panel Fast 02/06/25 R73.09 - Other abnormal glucose Complete Blood Count no Diff 02/06/25 R73.09 - Other abnormal glucose Medications: New prednisone 20 mg PO DAILY 5 tabs 0RF 5 days J45.20 - Mild intermittent asthma, uncomplicated
[2025-02-06 09:38] VITALS: BP 114/78; PULSE 82; RESP 18; TEMP 36.6; O2SAT 94; BMI 25.9
--- OUTSIDE RECORDS SUMMARY | 2025-02-06 11:13 | XMS_ITS | Patient Health Record ---
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
--- OUTSIDE RECORDS SUMMARY | 2025-02-06 11:13 | XMS_ITS | Clinical Summary ---
Author Organization [facility] Prior to 07/08/24 Address [address] [place] [address] Care Team Providers Care Bread Slicer Machine Name Role Phone AnaLanden Primary Care Provider [phone] Allergies No known active allergies Medications Medication [...] age to complete this topic Care Teams Bread Slicer Machine Relationship Specialty Start Date End Date Landen Perez DO [address] [place] [id number] PCP - General 10/20/16
--- OUTSIDE RECORDS SUMMARY | 2025-02-06 11:13 | XMS_ITS | Clinical Summary ---
Author Organization [facility] Address [address] [place], [place] [id number] Phone Care Team Providers Care Resaw Operator Name Role Phone Polo Nascimento Primary Care Provider + Allergies No known active allergies Medications albuterol 2.5 mg /3 mL (0.083 %) nebulizer solution INHALE THE CONTENTS OF 1 VIAL (3 ML) EVERY 4 HOURS 10/13/2019 Active ferrous sulfate 325 mg (65 mg [place] iron) tablet Take 1 tablet by mouth [...] EDT) SODIUM 140 133 - 146 mmol/L CHLORIDE 106 96 - 108 mmol/L POTASSIUM 3.8 3.3 - 5.1 mmol/L CO2 24 21 - 35 mmol/L BUN 18 6 - 19 mg/dL CREATININE 0.60 0.5 - 1.5 mg/dL GLUCOSE 91 70 - 99 mg/dL CALCIUM 9.1 8.4 - 10.3 mg/dL EGFR 98 >59 mL/min/1.7 3m2 Comment:Estimated glomerular filtration rate calculated using the CKD-EPI refit equation. ANION GAP 14 10 - 20 mmol/L Blood 11/21/2021 4:23 PM EDT 11/21/2021 4:36 PM EDT us [facility] BLOOD BKR ORDERABLE S Final Result [address] [place], [place] [id number] from Last 3 Months or Most Recently Relevant to Health Maintenance Insurance [place] [id number] [facility] MEDICARE REPLACEMENT MEDICARE PART A & B Member Subscriber Plan / Payer (Ef fective 2006-Present) Name:Nayla Lambert Member ID:[id number] Relation to Subscriber:Self Name:Nayla Lambert Subscriber ID:[id number] Payer ID:[id number] Group ID:Not on file Type:Medicare Address: [employer] [address] [place] [address] [place] [address] MEDICARE REPLACEMENT MEDICARE PART A & B [facility] MEDICARE REPLACEMENT MEDICARE PART A & B MEDICARE REPLACEMENT Member Subscriber Plan / Payer (Ef fective 2019-Present) Name:Nayla Lambert Relation to Subscriber:Self Name:NAYLA LAMBERT Payer ID:[id number] (NAIC) Group ID:[id number] Type:Medicare [address] [facility] A & B [facility] MEDICARE REPLACEMENT [id number] MEDICARE PART A & B [id number] [place] [address] MEDICARE REPLACEMENT MEDICARE PART A & B [facility] MEDICARE REPLACEMENT MEDICARE PART A & B [employer] [facility] MEDICARE REPLACEMENT MEDICARE PART A & B [facility] MEDICARE REPLACEMENT [id number] Care Teams Resaw Operator Relationship Specialty [place] [address] [place] [id number] PCP - General 10/24/20 Additional Source Comments The information contained in this document represents components of the legal health record. It is not the complete legal health record.[facility]
--- OUTSIDE RECORDS SUMMARY | 2025-02-06 11:13 | XMS_ITS | Clinical Summary ---
Author Organization [facility] Address [address] [address] Care Team Providers Care Powder Blender And Pourer Name Role Phone Polo Nascimento Primary Care Provider [phone] Social History Tobacco Use Types Packs/Day Years [...] patient's age to complete this topic Insurance [facility] Care Teams Powder Blender And Pourer Relationship Specialty Start Date End Date Polo Nascimento PA [address], [address] [place] [address] PCP - General Physician Sustainability Officer 06/30/21
--- OUTSIDE RECORDS SUMMARY | 2025-02-06 11:13 | XMS_ITS | Encounter Summary ---
Author Organization [facility] Address [address] [place] [address] Phone Care Team Providers Care Soldering Technician Name Role Phone Polo Nascimento Primary Care Provider + Encounter Details Date Type Department Care Team (Late st Contact Info) Description 11/21/2021 Procedure Pass [facility], Ct Scan - [address] [address] Social History Tobacco Use Types Packs/Day Years [...] on filedocumented in this encounter Care Teams Soldering Technician Relationship Specialty Start Date End Date Polo Nascimento PA [address] [place] [address] PCP - General 10/24/20 documented as of this encounter Additional Source Comments The information contained in this document represents components of the legal health record. It is not the complete legal health record.[facility]
--- OUTSIDE RECORDS SUMMARY | 2025-02-06 11:13 | XMS_ITS | Encounter Summary ---
Author Organization [facility] Address [address] [place] [address] Phone Care Team Providers Care [facility] Name Role Phone Polo Nascimento Primary Care Provider + Encounter Details Date Type Department Care Team (Late st Contact Info) Description 11/21/2021 Procedure Pass [facility], Ct Scan - [address] [address] Social History Tobacco Use Types Packs/Day Years [...] on filedocumented in this encounter Care Teams [facility] Relationship Specialty Start Date End Date Polo Nascimento PA [address] [place] [address] PCP - General 10/24/20 documented as of this encounter Additional Source Comments The information contained in this document represents components of the legal health record. It is not the complete legal health record.[facility]
== END 2025-02-06 10:08 | disposition home or self-care (01) ==
PROVIDERS: PCP Physician Assistant; Visit Provider Physician Assistant
DX: G80.1 Spastic diplegic cerebral palsy (principal); D64.9 Anemia, unspecified; I10 Essential (primary) hypertension; R73.09 Other abnormal glucose; J45.20 Mild intermittent asthma, uncomplicated

== ENCOUNTER → 2025-02-06 09:01 | Outpatient (BNVA) | payer OTHER, SELFPAY | PROVIDERS: PCP Physician Assistant; Visit Provider Physician Assistant | DX: J45.20 Mild intermittent asthma, uncomplicated (principal); R73.09 Other abnormal glucose; I10 Essential (primary) hypertension; G80.1 Spastic diplegic cerebral palsy; M17.11 Unilateral primary osteoarthritis, right knee; F32.A Depression, unspecified; Z86.2 Personal history of diseases of the blood and blood-forming organs and certain disorders involving the immune mechanism; Z85.3 Personal history of malignant neoplasm of breast; Z91.81 History of falling | CPT/HCPCS: 99212 ==